=== PATIENT | male | born 1960 | race Caucasian/White ===

== ENCOUNTER 2017-08-03 18:41 | Emergency (ER) | payer MEDICAID, SELFPAY ==
[2017-08-03 18:44] VITALS: BP 153/90; PULSE 107; RESP 19; TEMP 36.9; O2SAT 95; BMI 31.5
[2017-08-03 19:48] LABS: Absolute Lymphocyte Count 1.24 X10^3/ul (0.83-4.51); Basophil# 0.02 X10^3/uL; Basophil% 0.6 % (0-1); Eosinophil# 0.02 X10^3/uL; Eosinophils% 0.6 % (0-5); Hemoglobin 14.6 g/dl (13.0-16.5); Lymphocyte # 1.24 X10^3/ul (4.0); Lymphocyte % 34.6 % (19-41); Mean Corp Hgb Conc 34.8 g/gl (32-36); Mean Corpuscular Hgb 31.7 pg (27.0-32.0); Mean Corpuscular Volume 91.1 fL (80-94); Monocyte# 0.32 X10^3/uL; Monocyte% 8.9 % (0-10); Neutrophil # 1.97 X10^3/uL (2.7-7.7); Platelet Count 85 K/mm3 (150-450); RBC Distribution Width CV 13.8 % (11.6-14.6); RBC Distribution Width SD 44.7 fl (35.1-43.9); Red Blood Count 4.61 M/mm3 (4.6-6.2); White Blood Count 3.6 K/mm3 (4.4-11.0)
[2017-08-03 19:52] LABS: POSITIVE COUNT NO; POSITIVE DIFFERENTIAL NO; POSITIVE MORPHOLOGY NO
[2017-08-03] MEDS: 0.9% Normal Saline 1,000 ML 1000 ML IV ×2 (20:02→20:30)
[2017-08-03 20:08] LABS: Anion Gap 13 (5-15); BUN 10 mg/dL (7-18); Chloride 105 mmol/L (98-107); Creatinine, Serum 0.66 mg/dL (0.70-1.30); EST Glomerular Filtration Rate 131 mL/min (>60); Est Glom Filt Rate - Afr Amer 158 mL/min (>60); Glucose 99 mg/dL (74-106); Potassium 3.2 mmol/L (3.5-5.1); Sodium Level 144 mmol/L (136-145)
--- NOTE | 2017-08-03 20:23 | NURSING ---
lab called with critical of alcohol of 506
[2017-08-03] MEDS: Ziprasidone IM 20 MG/ML VIAL IM (20:33)
[2017-08-03 20:52] VITALS: BP 129/81; PULSE 112; RESP 17; O2SAT 92
[2017-08-03 23:06] VITALS: BP 121/68; PULSE 86; RESP 18; O2SAT 100
[2017-08-04 01:00] VITALS: BP 124/74; PULSE 80; RESP 16; O2SAT 97
--- NOTE | 2017-08-04 02:25 | ED.VISSUMM ---
- ER Visit Summary Date of Service: 08/04/17 Chief Complaint: Alcohol intoxication History of Present Illness: The patient is a 57 M presenting with alcohol intoxication per EMS. His mother reportedly found him laying on the floor intoxicated and EMS was called. Patient does not know why he is in the emergency department. He has no complaints. His mom called the emergency department and asked that he be checked for all types of cancers. He has no known history of cancer. He admits to heavy drinking. Denies suicidal ideation. He does not wish to have detox. Physical Examination: Vitals are stable. Patient is afebrile. Alert no acute distress. HEENT exam is unremarkable. Neck is supple. Lungs are clear and equal bilaterally. Heart is regular rate and rhythm. Abdomen is soft nontender nondistended. Reducible right inguinal hernia Extremities are unremarkable. Skin is warm and dry. No focal neurologic deficit. Intoxicated Remainder of exam is unremarkable. Emergency Department Course and Treatment: Just after arrival patient became combative, he pulled out his IV. He was put in restraints for his own and staff safety. He was given Geodon IM. CBC is unremarkable other than platelets of 85, this is similar to previous. Chemistries unremarkable other than potassium 3.2. Alcohol level is 508. Patient will be observed in the ED until sober. On multiple re-evaluations he is sleeping, but arousable. Disposition: Pending re-evaluation Impression: Alcohol intoxication This note was generated with [employer] dictation software. It may contain incorrect words, spelling, and punctuation that were not noted in review of the chart prior to signing ED Disposition - Plan for ED Patient: Chief Complaint: Subst Abuse Referrals: Ernie Lee Chi, MD [Primary Care Provider] -
--- NOTE | 2017-08-04 02:29 | ED.DEP ---
ED Disposition - Plan for ED Patient: Chief Complaint: Subst Abuse Instructions: ED Alcohol Intoxication Referrals: Ernie Lee Chi, MD [Primary Care Provider] -
[2017-08-04 03:20] VITALS: BP 162/77; PULSE 91; RESP 16; O2SAT 97
[2017-08-04 04:51] VITALS: BP 136/92; PULSE 88; RESP 15; O2SAT 96
--- NOTE | 2017-08-04 06:50 | ED.RN ---
patients mother called for a ride at this time
[2017-08-04 07:30] VITALS: BP 157/71; PULSE 73; RESP 15; O2SAT 97
== END 2017-08-04 07:34 | disposition home or self-care (01) ==
PROVIDERS: Emergency Provider Emergency Medicine; Family Provider Family Medicine Geriatric Medicine; PCP Family Medicine Geriatric Medicine
DX: F10.129 Alcohol abuse with intoxication, unspecified (principal); K40.90 Unilateral inguinal hernia, without obstruction or gangrene, not specified as recurrent; Z78.1 Physical restraint status
CPT/HCPCS: 80048; 80320; 85025; 96360; 96361; 96372; 99285; J7030; A4216; G0480; J3486

== ENCOUNTER 2017-11-06 17:32 | Emergency (ER) | payer MEDICAID, SELFPAY ==
[2017-11-06 17:34] VITALS: BP 163/98; PULSE 116; RESP 20; TEMP 37.2; O2SAT 95; BMI 35.5
--- NOTE | 2017-11-06 17:39 | CT_ITS ---
STUDY: CT BRAIN WITHOUT CONTRAST REASON FOR EXAM: Male, 57 years old. Fall. RADIATION DOSAGE (If Supplied By Facility): CTDIvol = ( 44.99 ) mGy, DLP = ( 863.60 ) mGycm TECHNIQUE: Transaxial CT imaging of the brain was performed without administration of intravenous contrast material. Individualized dose optimization techniques were used for this CT. COMPARISON: October 10, 2016 FINDINGS: Normal soft tissue structures. Normal calvarium. There is mild cerebral atrophy with widening of the extra-axial spaces and ventricular dilatation. Normal white matter tracts of the cerebral hemispheres. Normal basal ganglia and thalami. Normal brainstem. There is mild cerebellar atrophy. There is no intracranial hemorrhage. There are no findings of an acute ischemic infarction. Normal visualized paranasal sinuses. CT/Brain/Head without Contrast IMPRESSION: Chronic involutional changes of the brain. Electronically Signed: Arline Chan MD at 18:22 EDT Tel , Service support ,
--- NOTE | 2017-11-06 17:39 | CT_ITS ---
STUDY: CT CERVICAL SPINE WITHOUT CONTRAST REASON FOR EXAM: Male, 57 years old. Fall. RADIATION DOSAGE (If Supplied By Facility): CTDIvol = ( 30.47 ) mGy, DLP = ( 1213.81 ) mGycm TECHNIQUE: High resolution transaxial imaging was performed without contrast material. Sagittal and coronal images were reconstructed. Individualized dose optimization techniques were used for this CT. COMPARISON: December 23, 2013 FINDINGS: Motion artifact degrades anatomic detail. Normal craniovertebral junction. There are degenerative changes of the anterior atlantoaxial articulation. Normal odontoid process. Normal cervical lordosis. There is multilevel degenerative disc disease and facet hypertrophy. C2-3: Normal endplates. Normal disc height and morphology. Normal central canal and intervertebral neuroforamina. C3-4: There is endplate spondylosis. Normal central canal and intervertebral neuroforamina. C4-5: There is endplate spondylosis. Normal central canal and intervertebral neuroforamina. C5-6: Endplate spondylosis. Normal central canal and intervertebral neuroforamina. C6-7: Normal endplates. Normal disc height and morphology. Normal central canal and intervertebral neuroforamina. C7-T1: Normal endplates. Normal disc height and morphology. Normal central canal and intervertebral neuroforamina. Normal visualized soft tissue structures. CT/Spine Cervical without Contras IMPRESSION: Multilevel degenerative changes, as described above. Electronically Signed: Arline Chan MD at 18:40 EDT Tel , Service support ,
--- NOTE | 2017-11-06 17:48 | ED.DCSUM_ITS ---
- ER Visit Summary Date of Service: 11/06/17 Chief Complaint: Alcohol intoxication, questionable falls History of Present Illness: The patient is a 57 M who presents intoxicated. Mother called EMS because she says the patient's been drinking constantly for the past 5 hours. He drinks alcohol pretty much every day. He has been seen here multiple times for alcohol intoxication. He has had some falls at home and it did have some repetitive questioning. EMS noted no signs of trauma on their assessment. Physical Examination: Vital signs reviewed. HEENT exam reveals anisocoria. The right pupil has chronic changes. Heart is regular rate and rhythm. Lungs are clear. Abdomen soft nontender. Back is nontender including cervical spine. His neurologic exam shows that he is intoxicated. He does have some repetitive questioning. He can move all 4 extremities. There is no weakness. Test Results: [] Emergency Department Course and Treatment: I spoke with the patient's mother on the phone. She states that he has been saying that he wants to kill himself and last night that he was going to shoot himself in the head. She states he has been saying that since his father . Patient is not on any psychiatric medications currently does not see anybody as an outpatient such as a counselor , psychiatrist or psychologist. Patient will have a medical workup. His alcohol level was over 400. He will be observed until sober and then evaluated by crisis Treatment Plan: [] Disposition: Pending Impression: Alcohol intoxication, suicidal ideations This note was generated with [employer] software. It may contain incorrect words, spelling, and punctuation that were not noted in review of the chart prior to signing <Arian Adams - Last Filed: 11/06/17 18:49> - ER Visit Summary Date of Service: 11/07/17 Patient was signed out to me from the overnight doc pending evaluation by crisis. Annalisa from the counseling center saw the patient. Patient denies suicidal ideation at this time. He does not have access to a gun. Patient's mother who lives with him is here. She does state that he made those statements but he has never attended in the past and they do not have a gun. Patient has been seen by 180 as well as the counseling center. Annalisa will arrange follow-up for him. Disposition: Home Diagnosis: EtOH intoxication This note was generated with Dragon dictation software. It may contain incorrect words, spelling, and punctuation that were not noted in review of the chart prior to signing <Mary Elise - Last Filed: 11/07/17 10:10> ED Disposition <Arian Adams - Last Filed: 11/06/17 18:49> <Mary Elise - Last Filed: 11/07/17 10:10> - Plan for ED Patient: Disposition: Home or Assisted Living Chief Complaint: ETOH Intox Instructions: ED Alcohol Intoxication Referrals: [facility] [GROUP OF PHYSICIANS] - Ernie Lee Chi, MD [Primary Care Provider] - [facility] [STAFF PHYSICIAN] -
--- NOTE | 2017-11-06 18:30 | ED.RN ---
DR IGLESIAS NOTIFIED OF ALCOHOL RESULTS
[2017-11-06 18:34] LABS: Absolute Lymphocyte Count 2.47 X10^3/ul (0.83-4.51); Absolute Neutrophil Count 1.7 X10^3/uL (2.0-7.7); Basophil# 0.02 X10^3/uL; Basophil% 0.4 % (0-1); Eosinophil# 0.04 X10^3/uL; Eosinophils% 0.9 % (0-5); Hematocrit 41.9 % (40-54); Hemoglobin 14.8 g/dl (13.0-16.5); Lymphocyte # 2.47 X10^3/ul (4.0); Lymphocyte % 53.5 % (19-41); Mean Corp Hgb Conc 35.3 g/gl (32-36); Mean Corpuscular Hgb 35.2 pg (27.0-32.0); Mean Corpuscular Volume 99.8 fL (80-94); Monocyte# 0.43 X10^3/uL; Monocyte% 9.3 % (0-10); Neutrophil # 1.65 X10^3/uL (2.7-7.7); Neutrophil % 35.7 % (47-70); Platelet Count 100 K/mm3 (150-450); RBC Distribution Width CV 13.3 % (11.6-14.6); White Blood Count 4.6 K/mm3 (4.4-11.0)
[2017-11-06 18:40] LABS: POSITIVE COUNT NO; POSITIVE DIFFERENTIAL NO; POSITIVE MORPHOLOGY NO
[2017-11-06] MEDS: Ziprasidone IM 20 MG/ML VIAL IM (18:40)
[2017-11-06 18:41] LABS: Anion Gap 13 (5-15); BUN 7 mg/dL (7-18); BUN/Creat Ratio 8.5 RATIO (10-20); Calcium,Total 8.4 mg/dL (8.5-10.1); Chloride 106 mmol/L (98-107); Creatinine, Serum 0.82 mg/dL (0.70-1.30); EST Glomerular Filtration Rate 102 mL/min (>60); Est Glom Filt Rate - Afr Amer 124 mL/min (>60); Estimated Creatinine Clearance 96.16 ml/min; Glucose 117 mg/dL (74-106); Potassium 3.3 mmol/L (3.5-5.1); Sodium Level 141 mmol/L (136-145)
[2017-11-06 19:11] VITALS: O2SAT 80
[2017-11-06 19:13] VITALS: O2SAT 92
[2017-11-06 20:08] VITALS: BP 107/71; PULSE 100; RESP 18; O2SAT 93
[2017-11-06 22:00] VITALS: BP 140/87; PULSE 125; RESP 19; O2SAT 93
[2017-11-07 00:28] VITALS: PULSE 90; RESP 15; O2SAT 91
[2017-11-07] MEDS: LORazepam 2 MG/ML Syringe IV (04:50)
[2017-11-07 04:53] VITALS: BP 172/104; PULSE 119; RESP 17; O2SAT 96
[2017-11-07 05:15] LABS: Amphetamine Urine VISTA NEGATIVE (<1000 ng/mL); Barbiturate Urine VISTA NEGATIVE (< 200 ng/mL); Benzodiazepine Urine VISTA NEGATIVE (< 200 ng/mL); Cocaine Urine VISTA NEGATIVE (< 300 ng/mL); Ecstacy Urine VISTA NEGATIVE (< 500 ng/mL); Methadone Urine VISTA NEGATIVE (< 300 ng/mL); PCP Urine VISTA NEGATIVE (< 25 ng/mL); THC Urine VISTA NEGATIVE (< 50 ng/mL); Vista UDS pH Range 6
[2017-11-07 06:25] VITALS: PULSE 98; RESP 15
[2017-11-07 08:05] VITALS: PULSE 14
--- NOTE | 2017-11-07 09:07 | NURSING ---
DR HEART TALKED TO SELENE FROM THE [facility]SELING [facility] AND SHE WILL BE IN TO SEE PATIENT
[2017-11-07 10:03] VITALS: PULSE 87; RESP 16; O2SAT 100
--- NOTE | 2017-11-07 10:08 | ED.DEP ---
ED Disposition - Plan for ED Patient: Disposition: Home or Assisted Living Chief Complaint: ETOH Intox Instructions: ED Alcohol Intoxication Referrals: Ernie Lee Chi, MD [Primary Care Provider] - [facility] [STAFF PHYSICIAN] - [facility] [GROUP OF PHYSICIANS] -
[2017-11-07] MEDS: LORazepam 1 MG Tablet 2 MG PO (11:04)
[2017-11-07 11:07] VITALS: BP 150/92; PULSE 119; RESP 18; O2SAT 98
--- NOTE | 2017-11-07 11:08 | ED.RN ---
PT FIXED ON GOING HOME, DC INSTRUCTIONS REVIEWED WITH MOTHER. ATIAN GIVEN PRIOR TO DC
== END 2017-11-07 11:09 | disposition home or self-care (01) ==
PROVIDERS: Emergency Provider Emergency Medicine; Family Provider Family Medicine Geriatric Medicine; PCP Family Medicine Geriatric Medicine
DX: F10.129 Alcohol abuse with intoxication, unspecified (principal); Y90.8 Blood alcohol level of 240 mg/100 ml or more; R45.851 Suicidal ideations; R29.6 Repeated falls
CPT/HCPCS: 70450; 72125; 80048; 80307; 80320; 85025; 96372; 96374; 99285; A4216; G0480; J3486

== ENCOUNTER 2017-11-09 07:39 | Emergency (ER) | payer MEDICAID, SELFPAY ==
[2017-11-09 07:39] VITALS: BP 157/91; PULSE 132; RESP 20; TEMP 36.4; O2SAT 96; BMI 32.2
--- NOTE | 2017-11-09 08:10 | CT_ITS ---
STUDY: CT BRAIN WITHOUT CONTRAST REASON FOR EXAM: Male, 57 years old. Ethanol intoxication. RADIATION DOSAGE (If Supplied By Facility): CTDIvol = ( 44.99 ) mGy, DLP = ( 829.85 ) mGycm TECHNIQUE: Transaxial CT imaging of the brain was performed without administration of intravenous contrast material. Individualized dose optimization techniques were used for this CT. COMPARISON: Comparison is made with prior study dated November 06, 2017 and October 10, 2016. FINDINGS: Normal soft tissue structures. Normal calvarium. There is mild cerebral atrophy with widening of the extra-axial spaces and ventricular dilatation. Normal white matter tracts of the cerebral hemispheres. Normal basal ganglia and thalami. Normal brainstem. 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 This is unchanged. There is no intracranial hemorrhage. There are no findings of an acute ischemic infarction. Normal visualized paranasal sinuses. CT/Brain/Head without Contrast IMPRESSION: Chronic involutional changes of the brain. No acute abnormality is seen. Electronically Signed: Jerel eTixeira MD at 8:50 EDT Tel [phone], Service support ,
--- NOTE | 2017-11-09 08:13 | ED.DCSUM_ITS ---
- ER Visit Summary Date of Service: 11/09/17 Chief Complaint: Alcohol intoxication History of Present Illness: The patient is a 57 M presenting with alcohol intoxication. Patient states he had one beer this morning. His mother called EMS when she found him on the floor. She told EMS that she was unsure if he had a seizure. He has history of alcohol withdrawal seizures. Patient denies trauma or complaints. He is requesting to go home. Physical Examination: Vitals are stable. Patient is afebrile. Alert no acute distress. HEENT exam is unremarkable. Neck is nontender Lungs are clear and equal bilaterally. Heart is regular and tachycardic Abdomen is soft nontender nondistended. Extremities are unremarkable. Skin is warm and dry. No focal neurologic deficit. Awake and alert, oriented x 3. Remainder of exam is unremarkable. Emergency Department Course and Treatment: CT head was obtained due to unknown trauma and shows no acute process. Alcohol level is 4.0. Patient states that he has not had alcohol in the past 2 days although when he arrived he admitted to 1 beer this morning. He denies feeling shaky or feeling like he is going into alcohol withdrawal. He is advised the risks of alcohol withdrawal including seizures and . Patient refuses admission to the hospital. He voices understanding of these risks. His mother is at bedside. He signed out AGAINST MEDICAL ADVICE. Disposition: AGAINST MEDICAL ADVICE Impression: Fall, history of alcohol abuse This note was generated with [employer] dictation software. It may contain incorrect words, spelling, and punctuation that were not noted in review of the chart prior to signing ED Disposition - Plan for ED Patient: Chief Complaint: ETOH Intox Referrals: Ernie Lee Chi, MD [Primary Care Provider] -
--- NOTE | 2017-11-09 09:07 | ED.RN ---
MOTHER CALLED AND REPORTED THAT PT HAD 3 SEIZURES LAST NIGHT, ONE BEING A GRAND MAL AND THAT HE NEEDS TO BE ADMITTED. I AM 89 YEARS OLD, AND I CANNOT TAKE CARE OF HIM. DR LEE AND WM RN NOTIFIED OF PHONE CALL.
[2017-11-09 10:18] VITALS: BP 151/100; PULSE 110; RESP 18; TEMP 36.6; O2SAT 98
--- NOTE | 2017-11-09 10:19 | ED.RN ---
PT MOTHER AT BEDSIDE. PT AND MOTHER YELLING AT EACH OTHER. MOTHER MOVES TO HALLWAY. SCREAMING AT PATIENT. ASKED TO MOVE BACK IN ROOM TO CONTINUE CONVERSATION.PT LEAVING AMA
--- NOTE | 2017-11-09 10:22 | ED.RN ---
PT THREW AMA PAPERWORK ON FLOOR.
== END 2017-11-09 10:21 | disposition left against medical advice (07) ==
PROVIDERS: Emergency Provider Emergency Medicine; Family Provider Family Medicine Geriatric Medicine; PCP Family Medicine Geriatric Medicine
DX: F10.129 Alcohol abuse with intoxication, unspecified (principal); Y90.0 Blood alcohol level of less than 20 mg/100 ml
CPT/HCPCS: 36415; 70450; 80320; 99284; G0480

== ENCOUNTER 2018-03-23 18:07 | Emergency (ER) | payer MEDICAID, SELFPAY ==
[2018-03-23 18:08] VITALS: BP 165/115; PULSE 116; RESP 16; TEMP 37.1; O2SAT 95; BMI 30.4
--- NOTE | 2018-03-23 18:35 | CT_ITS ---
STUDY: CT BRAIN WITHOUT CONTRAST REASON FOR EXAM: Male, 57 years old. Altered mental status. RADIATION DOSAGE (If Supplied By Facility): CTDIvol = ( 44.99 ) mGy, DLP = ( 880.47 ) mGycm TECHNIQUE: Transaxial CT imaging of the brain was performed without administration of intravenous contrast material. Individualized dose optimization techniques were used for this CT. COMPARISON: November 09, 2017. FINDINGS: Normal soft tissue structures. Normal calvarium. There is mild cerebral atrophy with widening of the extra-axial spaces and ventricular dilatation. Normal white matter tracts of the cerebral hemispheres. Normal basal ganglia and thalami. Normal brainstem. There is mild cerebellar atrophy. There is no intracranial hemorrhage. There are no findings of an acute ischemic infarction. Normal visualized paranasal sinuses. CT/Brain/Head without Contrast IMPRESSION: Chronic involutional changes of the brain. Electronically Signed: Peewee Solis MD at 20:10 EDT , Service support ,
--- NOTE | 2018-03-23 18:35 | EKG12_ITS ---
Test Reason : ETOH Blood Pressure : / mmHG Vent. Rate : 121 BPM Atrial Rate : 125 BPM P-R Int : 080 ms QRS Dur : 092 ms QT Int : 438 ms P-R-T Axes : 000 013 052 degrees QTc Int : 621 ms Sinus tachycardia with short VT Otherwise normal ECG Confirmed by ARASELI FLOYD, MOLLY ([id number]), food editor SHELBY MOODY ([id number]) on 03/28/2018 3:44:12 PM Referred By: IRA Confirmed By:MOLLY MARX MD
[2018-03-23 18:36] LABS: Bedside Glucose 108 mg/dL (70-110)
--- NOTE | 2018-03-23 18:36 | ED.VISSUMM ---
- ER Visit Summary Date of Service: 03/23/18 Chief Complaint: Altered mental status History of Present Illness: The patient is a 57 M who presents for altered mental status. Patient's mother called 911 and states he fell and hit his head. She is concerned he is inebriated. Patient has a history of heavy alcohol use. Patient is denying any complaints at this time, including any head pain, chest pain, abdominal pain, nausea or vomiting. He denies drinking anything today initially and then admits to only 2 beers. History is limited secondary to patient cooperation. Physical Examination: Vital signs: afebrile, hemodynamically stable, tachycardic, no hypoxia on room air General: well nourished, well developed, in no distress, uncooperative and belligerent, odor patient's breath consistent with alcohol Skin: warm, dry, no rash, no pallor HEENT: normocephalic and atraumatic; left pupil is mid size and fixed (chronic), left pupil 3 mm and reactive, moist mucous membranes Cardiovascular: Tachycardic rate and rhythm without murmurs, no peripheral edema, 2+ pulses all distal extremities Respiratory: No increased work of breathing, lungs are clear to auscultation bilaterally, no rales, rhonchi or wheezing Abdominal: Abdomen is soft, nontender with normoactive bowel sounds, no guarding or rebound, no masses MSK: Moves all extremities, no deformities, normal strength Neuro: Awake and alert, oriented to self but not time or place. No facial droop, sensation and motor function intact and symmetric Test Results: Abnormal Lab Results 03/23/18 03/23/18 03/23/18 18:30 18:55 18:55 WBC 5.3 RBC 4.89 Hgb 15.5 Hct 43.6 MCV 89.2 MCH 31.7 MCHC 35.6 RDW 13.6 RDW Differential 44.3 H Plt Count 132 L MPV 9.1 Immature Gran % (Auto) 0.400 Neut % (Auto) 59.6 Lymph % (Auto) 31.7 Teller % (Auto) 7.1 Eos % (Auto) 0.8 Baso % (Auto) 0.4 Absolute Neuts (auto) 3.2 Absolute Lymphs (auto) 1.69 Total Counted Not Reportable PT 13.4 INR 1.0 APTT 27.8 Sodium Potassium Chloride Carbon Dioxide Anion Gap BUN Creatinine Estim Creat Clear Calc Est GFR (MDRD) Af Amer Est GFR (MDRD) Non-Af BUN/Creatinine Ratio Glucose Calcium Total Bilirubin AST ALT Alkaline Phosphatase Troponin I Total Protein Albumin Globulin Albumin/Globulin Ratio Lipase Ethyl Alcohol POC Glucose 108 03/23/18 03/23/18 18:55 18:55 WBC RBC Hgb Hct MCV MCH MCHC RDW RDW Differential Plt Count MPV Immature Gran % (Auto) Neut % (Auto) Lymph % (Auto) Teller % (Auto) Eos % (Auto) Baso % (Auto) Absolute Neuts (auto) Absolute Lymphs (auto) Total Counted PT INR APTT Sodium 142 Potassium 3.4 L Chloride 103 Carbon Dioxide 25.0 Anion Gap 14 BUN 7 Creatinine 0.77 Estim Creat Clear Calc 102.40 Est GFR (MDRD) Af Amer 133 Est GFR (MDRD) Non-Af 110 BUN/Creatinine Ratio 9.1 L Glucose 106 Calcium 8.2 L Total Bilirubin 1.10 H AST 74 H ALT 74 H Alkaline Phosphatase 98 Troponin I < 0.015 Total Protein 7.6 Albumin 4.0 Globulin 3.6 Albumin/Globulin Ratio 1.1 Lipase 131 Ethyl Alcohol 435.0 H* POC Glucose Clinical Impression(s) from Imaging Studies Brain CT 03/23/18 18:35 IMPRESSION: Chronic involutional changes of the brain. Electronically Signed: Peewee Solis MD at 20:10 EDT , Service support , Chest X-Ray 03/23/18 20:00 IMPRESSION: Degenerative changes, as described above. No demonstrated acute cardiopulmonary process. Electronically Signed: Peewee Solis MD at 20:22 EDT , Service support , Medications Given Discontinued Medications Haloperidol Lactate (Haldol) 5 mg IM X1 ONE Stop: 03/23/18 18:37 Last Admin: 03/23/18 18:38 Dose: 5 mg Sodium Chloride () 1,000 mls @ 1,000 mls/hr IV .Q1H ONE Stop: 03/23/18 19:34 Last Admin: 10/10/18 19:02 Dose: 1,000 mls/hr Lorazepam (Ativan) 2 mg IM X1 ONE Stop: 03/23/18 19:21 Last Admin: 03/23/18 19:20 Dose: 2 mg Emergency Department Course and Treatment: Because of patient's slurred speech, poor orientation and belligerent behavior with his mother stating he fell and hit his head, CT head was performed to rule out intracranial hemorrhage. Patient is also denying significant alcohol consumption although he appears clinically intoxicated. Lab work performed to look for alternative reasons of patient's presentation other than acute alcohol intoxication. He had showed no intracranial hemorrhage. [id number] glucose was within normal limits. Labs were unremarkable other than mild elevation of ALT and AST. EKG showed sinus rhythm, tachycardic rate with a prolonged QT interval. Patient received IM Haldol prior to obtaining the EKG because of belligerent and uncooperative behavior, continued attempts to leave, and presenting a danger to himself given his altered mental status, slurred speech and concern for underlying medical etiology. Patient continued to be belligerent and uncooperative, thus was given additional Ativan. He then rested comfortably, with patent airway and no respiratory depression. Ethanol was positive at 435. Chest x-ray showed no pneumonia or pneumothorax. No alternative cause of patient's altered mental status and slurred speech was identified other than acute alcohol intoxication. Patient was discussed with his mother who does not currently have a way to pick up attendant the patient. Patient will be observed until he has a sober ride. Given his history of heavy drinking, patient will be medically clear for discharge once he is cooperative, able to ambulate on his own and has a responsible sober alliance party to stay with him. Treatment Plan: [] Disposition: [] Impression: Acute alcohol intoxication This note was generated with [employer] dictation software. It may contain incorrect words, spelling, and punctuation that were not noted in review of the chart prior to signing <Angela Luther - Last Filed: 03/23/18 23:24> - ER Visit Summary Patient was endorsed to me by the outgoing physician. Patient was observed in the emergency department until 330. At that point he had awoken from sleep. He was mildly tachycardic with a heart rate of 106 but was not tremulous was not confused and does not appear to be going through delirium tremens. I believe the patient at this point to be clinically sober. Patient will be discharged with a ride home via taxi cab. This note was generated with [employer] dictation software. It may contain incorrect words, spelling, and punctuation that were not noted in review of the chart prior to signing <Nik Flores - Last Filed: 03/24/18 03:24> ED Disposition <Angela Luther - Last Filed: 03/23/18 23:24> <Nik Flores - Last Filed: 03/24/18 03:24> - Plan for ED Patient: Disposition: Home or Assisted Living Chief Complaint: ETOH Intox Instructions: ED Alcohol Intoxication, ED Alcohol Abuse Referrals: Ernie Lee Chi, MD [Primary Care Provider] - 2 Days Additional Instructions: Please discuss with your doctor strategies to cut back on your drinking, as it is having a negative impact on your life and your relationship with your mother. It is also dangerous, as you are having falls and are increased risk of injuring herself because of your drinking. If you have any worsening of your condition or any new concerning symptoms, please return immediately to the emergency department for another evaluation.
[2018-03-23] MEDS: Haloperidol Lactate 5 MG/ML Vial IM (18:38)
--- NOTE | 2018-03-23 18:39 | ED.DCSUM_ITS ---
- ER Visit Summary Date of Service: 03/23/18 Chief Complaint: Altered mental status History of Present Illness: The patient is a 57 M who presents for altered mental status. Patient's mother called 911 and states he fell and hit his head. She is concerned he is inebriated. Patient has a history of heavy alcohol use. Patient is denying any complaints at this time, including any head pain, chest pain, abdominal pain, nausea or vomiting. He denies drinking anything today initially and then admits to only 2 beers. History is limited secondary to patient cooperation. Physical Examination: Vital signs: afebrile, hemodynamically stable, tachycardic, no hypoxia on room air General: well nourished, well developed, in no distress, uncooperative and belligerent, odor patient's breath consistent with alcohol Skin: warm, dry, no rash, no pallor HEENT: normocephalic and atraumatic; left pupil is mid size and fixed (chronic), left pupil 3 mm and reactive, moist mucous membranes Cardiovascular: Tachycardic rate and rhythm without murmurs, no peripheral edema, 2+ pulses all distal extremities Respiratory: No increased work of breathing, lungs are clear to auscultation bilaterally, no rales, rhonchi or wheezing Abdominal: Abdomen is soft, nontender with normoactive bowel sounds, no guarding or rebound, no masses MSK: Moves all extremities, no deformities, normal strength Neuro: Awake and alert, oriented to self but not time or place. No facial droop, sensation and motor function intact and symmetric Test Results: Abnormal Lab Results 03/23/18 03/23/18 03/23/18 18:30 18:55 18:55 WBC 5.3 RBC 4.89 Hgb 15.5 Hct 43.6 MCV 89.2 MCH 31.7 MCHC 35.6 RDW 13.6 RDW Differential 44.3 H Plt Count 132 L MPV 9.1 Immature Gran % (Auto) 0.400 Neut % (Auto) 59.6 Lymph % (Auto) 31.7 [place] % (Auto) 7.1 Eos % (Auto) 0.8 Baso % (Auto) 0.4 Absolute Neuts (auto) 3.2 Absolute Lymphs (auto) 1.69 Total Counted Not Reportable PT 13.4 INR 1.0 APTT 27.8 Sodium Potassium Chloride Carbon Dioxide Anion Gap BUN Creatinine Estim Creat Clear Calc Est GFR (MDRD) Af Amer Est GFR (MDRD) Non-Af BUN/Creatinine Ratio Glucose Calcium Total Bilirubin AST ALT Alkaline Phosphatase Troponin I Total Protein Albumin Globulin Albumin/Globulin Ratio Lipase Ethyl Alcohol POC Glucose 108 03/23/18 03/23/18 18:55 18:55 WBC RBC Hgb Hct MCV MCH MCHC RDW RDW Differential Plt Count MPV Immature Gran % (Auto) Neut % (Auto) Lymph % (Auto) [place] % (Auto) Eos % (Auto) Baso % (Auto) Absolute Neuts (auto) Absolute Lymphs (auto) Total Counted PT INR APTT Sodium 142 Potassium 3.4 L Chloride 103 Carbon Dioxide 25.0 Anion Gap 14 BUN 7 Creatinine 0.77 Estim Creat Clear Calc 102.40 Est GFR (MDRD) Af Amer 133 Est GFR (MDRD) Non-Af 110 BUN/Creatinine Ratio 9.1 L Glucose 106 Calcium 8.2 L Total Bilirubin 1.10 H AST 74 H ALT 74 H Alkaline Phosphatase 98 Troponin I < 0.015 Total Protein 7.6 Albumin 4.0 Globulin 3.6 Albumin/Globulin Ratio 1.1 Lipase 131 Ethyl Alcohol 435.0 H* POC Glucose Clinical Impression(s) from Imaging Studies Brain CT 03/23/18 18:35 IMPRESSION: Chronic involutional changes of the brain. Electronically Signed: Peewee Solis MD at 20:10 EDT , Service support , Chest X-Ray 03/23/18 20:00 IMPRESSION: Degenerative changes, as described above. No demonstrated acute cardiopulmonary process. Electronically Signed: Peewee Solis MD at 20:22 EDT , Service support , Medications Given Discontinued Medications Haloperidol Lactate (Haldol) 5 mg IM X1 ONE Stop: 03/23/18 18:37 Last Admin: 03/23/18 18:38 Dose: 5 mg Sodium Chloride () 1,000 mls @ 1,000 mls/hr IV .Q1H ONE Stop: 03/23/18 19:34 Last Admin: 10/10/18 19:02 Dose: 1,000 mls/hr Lorazepam (Ativan) 2 mg IM X1 ONE Stop: 03/23/18 19:21 Last Admin: 03/23/18 19:20 Dose: 2 mg Emergency Department Course and Treatment: Because of patient's slurred speech, poor orientation and belligerent behavior with his mother stating he fell and hit his head, CT head was performed to rule out intracranial hemorrhage. Patient is also denying significant alcohol consumption although he appears clinically intoxicated. Lab work performed to look for alternative reasons of patient's presentation other than acute alcohol intoxication. He had showed no intracranial hemorrhage. [id number] glucose was within normal limits. Labs were unremarkable other than mild elevation of ALT and AST. EKG showed sinus rhythm, tachycardic rate with a prolonged QT interval. Patient received IM Haldol prior to obtaining the EKG because of belligerent and uncooperative beh avior, continued attempts to leave, and presenting a danger to himself given his altered mental status, slurred speech and concern for underlying medical etiology. Patient continued to be belligerent and uncooperative, thus was given additional Ativan. He then rested comfortably, with patent airway and no respiratory depression. Ethanol was positive at 435. Chest x-ray showed no pneumonia or pneumothorax. No alternative cause of patient's altered mental status and slurred speech was identified other than acute alcohol intoxication. Patient was discussed with his mother who does not currently have a way to spanish moss picker the patient. Patient will be observed until he has a sober ride. Given his history of heavy drinking, patient will be medically clear for discharge once he is cooperative, able to ambulate on his own and has a responsible sober green party to stay with him. Treatment Plan: [] Disposition: [] Impression: Acute alcohol intoxication This note was generated with [employer] dictation software. It may contain incorrect words, spelling, and punctuation that were not noted in review of the chart prior to signing <Angela Luther - Last Filed: 03/23/18 23:24> - ER Visit Summary Patient was endorsed to me by the outgoing physician. Patient was observed in the emergency department until 330. At that point he had awoken from sleep. He was mildly tachycardic with a heart rate of 106 but was not tremulous was not confused and does not appear to be going through delirium tremens. I believe the patient at this point to be clinically sober. Patient will be discharged with a ride home via taxi cab. This note was generated with [employer] dictation software. It may contain incorrect words, spelling, and punctuation that were not noted in review of the chart prior to signing <Nik Flores - Last Filed: 03/24/18 03:24> ED Disposition <Angela Luther - Last Filed: 03/23/18 23:24> <Nik Flores - Last Filed: 03/24/18 03:24> - Plan for ED Patient: Disposition: Home or Assisted Living Chief Complaint: ETOH Intox Instructions: ED Alcohol Intoxication, ED Alcohol Abuse Referrals: Ernie Lee Chi, MD [Primary Care Provider] - 2 Days Additional Instructions: Please discuss with your doctor strategies to cut back on your drinking, as it is having a negative impact on your life and your relationship with your mother. It is also dangerous, as you are having falls and are increased risk of injuring herself because of your drinking. If you have any worsening of your condition or any new concerning symptoms, please return immediately to the emergency department for another evaluation.
[2018-03-23] MEDS: 0.9% Normal Saline 1,000 ML 1000 ML IV (19:02)
[2018-03-23 19:05] LABS: Absolute Lymphocyte Count 1.69 X10^3/ul (0.83-4.51); Absolute Neutrophil Count 3.2 X10^3/uL (2.0-7.7); Basophil# 0.02 X10^3/uL; Basophil% 0.4 % (0-1); Eosinophil# 0.04 X10^3/uL; Eosinophils% 0.8 % (0-5); Hematocrit 43.6 % (40-54); Hemoglobin 15.5 g/dl (13.0-16.5); Lymphocyte # 1.69 X10^3/ul (4.0); Lymphocyte % 31.7 % (19-41); Mean Corp Hgb Conc 35.6 g/gl (32-36); Mean Corpuscular Hgb 31.7 pg (27.0-32.0); Mean Corpuscular Volume 89.2 fL (80-94); Mean Platelet Vol. 9.1 fl (6.2-12.0); Monocyte# 0.38 X10^3/uL; Monocyte% 7.1 % (0-10); Neutrophil # 3.18 X10^3/uL (2.7-7.7); Neutrophil % 59.6 % (47-70); POSITIVE COUNT NO; POSITIVE DIFFERENTIAL NO; POSITIVE MORPHOLOGY NO; Platelet Count 132 K/mm3 (150-450); RBC Distribution Width CV 13.6 % (11.6-14.6); RBC Distribution Width SD 44.3 fl (35.1-43.9); Red Blood Count 4.89 M/mm3 (4.6-6.2); White Blood Count 5.3 K/mm3 (4.4-11.0)
[2018-03-23 19:08] LABS: Prothrombin Time (Protime)PT. 13.4 SECONDS (11.7-14.9)
[2018-03-23 19:09] LABS: Partial Thromboplast Time 27.8 Seconds (24.1-36.2)
[2018-03-23 19:20] LABS: ALB/GLOB Ratio 1.1 RATIO (0.9-2.4); AST(SGOT) 74 U/L (15-37); Alanine Aminotransfer ALT/SGPT 74 U/L (16-61); Alkaline Phosphatase 98 U/L (45-117); Anion Gap 14 (5-15); BUN 7 mg/dL (7-18); BUN/Creat Ratio 9.1 RATIO (10-20); Calcium,Total 8.2 mg/dL (8.5-10.1); Chloride 103 mmol/L (98-107); Creatinine, Serum 0.77 mg/dL (0.70-1.30); EST Glomerular Filtration Rate 110 mL/min (>60); Est Glom Filt Rate - Afr Amer 133 mL/min (>60); Globulin 3.6 g/dL (2.2-4.2); Glucose 106 mg/dL (74-106); Lipase 131 U/L (73-393); Potassium 3.4 mmol/L (3.5-5.1); Protein, Total 7.6 g/dL (6.4-8.2); Sodium Level 142 mmol/L (136-145)
[2018-03-23] MEDS: LORazepam 2 MG/ML Syringe IM (19:20)
[2018-03-23 19:24] VITALS: BP 155/91; PULSE 102; RESP 11; O2SAT 96
--- NOTE | 2018-03-23 20:00 | RAD_ITS ---
STUDY: X-RAY CHEST REASON FOR EXAM: Male, 57 years old. Alcohol intoxication TECHNIQUE: Single frontal view of the chest. COMPARISON: October 18, 2016. FINDINGS: There are monitoring devices. The lungs are clear and expanded. There is no demonstrated pleural abnormality. There is borderline cardiomegaly. There is a retrocardiac density suggesting hiatal hernia. Normal visualized pulmonary arteries. Normal visualized aortic arch and descending thoracic aorta. Normal visualized thoracic spine. Normal visualized ribs, clavicles, and shoulders. There is no demonstrated abnormality of the visualized soft tissue structures of the upper abdomen. RAD/Chest 1 View (Portable) IMPRESSION: Degenerative changes, as described above. No demonstrated acute cardiopulmonary process. Electronically Signed: Peewee Solis MD at 20:22 EDT , Service support ,
--- NOTE | 2018-03-23 20:42 | NURSING ---
DR. LAUREN MADE AWARE THAT PATIENT'S ALCOHOL LEVEL IS 435. PATIENT IS SLEEPING CURRENTLY. DR. LAUREN IS OK THAT WE DON'T ATTEMPT TO GET THE URINE AT THIS TIME.
--- NOTE | 2018-03-23 20:51 | NURSING ---
DAVID HIS MOTHER CALLED AND WAS UPDATED ON HER SON'S STATUS. THIS TOLD HER THAT HE WOULD BE HERE PROBABLY TILL MORNING.
[2018-03-23 21:22] VITALS: BP 139/72; PULSE 93; RESP 15; O2SAT 96
[2018-03-23 23:00] VITALS: BP 147/88; PULSE 102; RESP 16; O2SAT 98
[2018-03-24 00:48] VITALS: BP 133/81; PULSE 105; RESP 16; O2SAT 95
--- NOTE | 2018-03-24 01:11 | ED.DEP ---
ED Disposition - Plan for ED Patient: Disposition: Home or Assisted Living Chief Complaint: ETOH Intox Instructions: ED Alcohol Intoxication, ED Alcohol Abuse Referrals: Ernie Lee Chi, MD [Primary Care Provider] - 2 Days Additional Instructions: Please discuss with your doctor strategies to cut back on your drinking, as it is having a negative impact on your life and your relationship with your mother. It is also dangerous, as you are having falls and are increased risk of injuring herself because of your drinking. If you have any worsening of your condition or any new concerning symptoms, please return immediately to the emergency department for another evaluation.
[2018-03-24 02:41] VITALS: BP 107/61; PULSE 106; RESP 13; O2SAT 95
[2018-03-24 03:20] VITALS: BP 107/61; PULSE 114; RESP 23; O2SAT 95
--- NOTE | 2018-03-24 03:31 | ED.RN ---
DR. ANTHONY SAID PATIENT IS OK TO BE DISCHARGED AND GO HOME BY CAB. IV D/C'D AND DISCHARGE INSTRUCTIONS GIVEN. TWO GATORADES GIVEN.
== END 2018-03-24 04:13 | disposition home or self-care (01) ==
PROVIDERS: Emergency Provider Emergency Medicine; Family Provider Family Medicine Geriatric Medicine; PCP Family Medicine Geriatric Medicine
DX: F10.129 Alcohol abuse with intoxication, unspecified (principal); Y90.8 Blood alcohol level of 240 mg/100 ml or more; R00.0 Tachycardia, unspecified; I45.81 Long QT syndrome
CPT/HCPCS: 70450; 71045; 80053; 80320; 82962; 83690; 84484; 85025; 85610; 85730; 93005; 96361; 96372; 96374; 99285; J7030; A4216; G0480

== ENCOUNTER 2018-05-08 17:15 | Emergency (ER) | payer MEDICAID, SELFPAY ==
[2018-05-08 17:16] VITALS: BP 165/97; PULSE 110; RESP 22; TEMP 36.8; O2SAT 95; BMI 33.4
[2018-05-08] MEDS: Ziprasidone IM 20 MG/ML VIAL IM (17:30)
[2018-05-08 17:43] LABS: Absolute Lymphocyte Count 3.77 X10^3/ul (0.83-4.51); Absolute Neutrophil Count 3.9 X10^3/uL (2.0-7.7); Basophil# 0.05 X10^3/uL; Basophil% 0.6 % (0-1); Eosinophil# 0.02 X10^3/uL; Eosinophils% 0.2 % (0-5); Hematocrit 45.3 % (40-54); Lymphocyte # 3.77 X10^3/ul (4.0); Lymphocyte % 44.8 % (19-41); Mean Corp Hgb Conc 35.3 g/gl (32-36); Mean Corpuscular Hgb 32.4 pg (27.0-32.0); Mean Corpuscular Volume 91.7 fL (80-94); Mean Platelet Vol. 9.1 fl (6.2-12.0); Monocyte# 0.71 X10^3/uL; Monocyte% 8.4 % (0-10); Neutrophil # 3.86 X10^3/uL (2.7-7.7); Neutrophil % 45.9 % (47-70); Platelet Count 213 K/mm3 (150-450); RBC Distribution Width CV 13.4 % (11.6-14.6); RBC Distribution Width SD 44.4 fl (35.1-43.9); Red Blood Count 4.94 M/mm3 (4.6-6.2); White Blood Count 8.4 K/mm3 (4.4-11.0)
[2018-05-08 17:49] LABS: POSITIVE COUNT NO; POSITIVE DIFFERENTIAL NO; POSITIVE MORPHOLOGY NO
[2018-05-08 17:50] LABS: Anion Gap 15 (5-15); BUN 11 mg/dL (7-18); BUN/Creat Ratio 12.8 RATIO (10-20); Calcium,Total 8.3 mg/dL (8.5-10.1); Chloride 106 mmol/L (98-107); Creatinine, Serum 0.86 mg/dL (0.70-1.30); EST Glomerular Filtration Rate 97 mL/min (>60); Est Glom Filt Rate - Afr Amer 118 mL/min (>60); Estimated Creatinine Clearance 90.58 ml/min; Glucose 114 mg/dL (74-106); Potassium 3.4 mmol/L (3.5-5.1); Sodium Level 145 mmol/L (136-145)
--- NOTE | 2018-05-08 18:19 | ED.VISSUMM ---
- ER Visit Summary Date of Service: 05/08/18 Chief Complaint: Alcohol intoxication History of Present Illness: The patient is a 58 M presents to the emergency department with alcohol intoxication. The patient lives at home with his mother. He is a long-standing history of alcohol abuse. Apparently, he was drinking today and got verbally aggressive towards his mother. She states she did not feel safe and called police. Patient denies being suicidal or homicidal. He does appear to be intoxicated. He denies any other current complaints. Physical Examination: Vital signs reviewed General: Well-nourished, well-developed Head: Normocephalic, atraumatic Eyes: Pupils equal and reactive, extraocular muscles intact Neck, supple, no lymphadenopathy Heart: Regular rate and rhythm Respiratory: No distress, clear bilaterally Abdomen: Soft, nontender, nondistended, no peritoneal signs Back: Nontender Extremities: Nontender, no edema, no cords Skin: Normal color no rash Neuro: Alert and oriented, no focal or lateralizing deficits Test Results: [] Emergency Department Course and Treatment: The patient has a long-standing history of alcohol abuse. He presents and he is belligerent and aggressive. The patient was given Geodon, Benadryl and was more comfortable. Labs are obtained. He is markedly intoxicated with an alcohol level over 400. Rest of his labs are unremarkable. The patient was still restless and given Ativan and is now resting comfortably. I do feel that the bulk of the patient's symptoms come from his chronic alcohol abuse. He has no interest in detox at this time. The patient will be observed until he can demonstrate clinical sobriety and will be reevaluated. At that time, disposition will be made. Treatment Plan: [] Disposition: Pending Impression: 1. Alcohol intoxication This note was generated with [employer] dictation software. It may contain incorrect words, spelling, and punctuation that were not noted in review of the chart prior to signing ED Disposition - Plan for ED Patient: Chief Complaint: ETOH Intox Instructions: ED Alcohol Intoxication Referrals: Ernie Lee Chi, MD [Primary Care Provider] -
[2018-05-08 18:33] VITALS: PULSE 102; RESP 18; O2SAT 95
--- NOTE | 2018-05-08 18:45 | EKG12_ITS ---
Test Reason : ETOH INTOX Blood Pressure : / mmHG Vent. Rate : 127 BPM Atrial Rate : 071 BPM P-R Int : 000 ms QRS Dur : 088 ms QT Int : 410 ms P-R-T Axes : 000 036 074 degrees QTc Int : 595 ms Atrial tachycardia Nonspecific T wave abnormality Abnormal ECG Confirmed by ARASELI FLOYD, MOLLY ([id number]), assistant editor KAMLESH KARIMI ([id number]) on 05/10/2018 4:22:24 PM Referred By: EMILY Confirmed By:MOLLY MARX MD
[2018-05-08 18:47] LABS: Amphetamine Urine VISTA NEGATIVE (<1000 ng/mL); Barbiturate Urine VISTA NEGATIVE (< 200 ng/mL); Benzodiazepine Urine VISTA NEGATIVE (< 200 ng/mL); Cocaine Urine VISTA NEGATIVE (< 300 ng/mL); Ecstacy Urine VISTA NEGATIVE (< 500 ng/mL); Methadone Urine VISTA NEGATIVE (< 300 ng/mL); PCP Urine VISTA NEGATIVE (< 25 ng/mL); THC Urine VISTA NEGATIVE (< 50 ng/mL); Vista UDS pH Range 5
[2018-05-08] MEDS: DiphenhydrAMINE 50 MG/ML Syringe IV (18:48)
[2018-05-08 19:10] VITALS: BP 158/94; PULSE 94; RESP 16; O2SAT 97
--- NOTE | 2018-05-08 19:27 | ED.RN ---
PT REPEATEDLY YELLING MOM. PT ATTEMPTING TO GET OUT OF BED. AT THIS TIME, MEDIC SITTING IN THE ROOM ATTEMPTING TO REDIRECT PT AND HELP PT UNDERSTAND HE IS IN THE HOSPITAL AND NEEDS TO STAY IN BED.
[2018-05-08] MEDS: LORazepam 2 MG/ML Syringe 1 MG IV (19:36)
[2018-05-08 19:43] VITALS: BP 134/78; PULSE 92; RESP 22; O2SAT 96
[2018-05-08 21:53] VITALS: BP 120/67; PULSE 97; RESP 12; O2SAT 93
[2018-05-08 23:09] VITALS: BP 126/72; PULSE 103; RESP 19; O2SAT 95
--- NOTE | 2018-05-08 23:29 | ED.RN ---
PT LAYING IN BED SLEEPING. WHEN PT WAKES HE ATTEMPTS TO GET OUT OF BED AND YELLS MOM. PT REDIRECTED AND INFORMED HE IS TOO INTOXICATED TO WALK HOME AT THIS TIME. PT BECOMES ARGUMENTATIVE. PT YELLING OUT. PT FALL BACK TO SLEEP.
[2018-05-09 01:00] VITALS: BP 126/78; PULSE 94; RESP 14; O2SAT 91
[2018-05-09 03:32] VITALS: BP 134/76; PULSE 88; RESP 19; O2SAT 99
[2018-05-09 04:23] VITALS: BP 124/81; PULSE 88; RESP 16; O2SAT 94
[2018-05-09 05:47] VITALS: BP 129/79; PULSE 84; RESP 18; O2SAT 99
[2018-05-09 06:04] VITALS: BP 159/99; PULSE 81; RESP 18; O2SAT 99
[2018-05-09 06:39] VITALS: BP 139/99; PULSE 84; RESP 18; O2SAT 99
== END 2018-05-09 06:42 | disposition home or self-care (01) ==
PROVIDERS: Emergency Provider Emergency Medicine; Family Provider Family Medicine Geriatric Medicine; PCP Family Medicine Geriatric Medicine
DX: F10.129 Alcohol abuse with intoxication, unspecified (principal); Y90.8 Blood alcohol level of 240 mg/100 ml or more; K21.9 Gastro-esophageal reflux disease without esophagitis; Z79.899 Other long term (current) drug therapy
CPT/HCPCS: 80048; 80307; 80320; 85025; 93005; 96372; 96374; 96375; 99285; A4216; G0480; J3486

== ENCOUNTER 2018-05-17 12:18 | Emergency (ER) | payer MEDICAID, SELFPAY ==
[2018-05-17 12:19] VITALS: BP 164/111; PULSE 111; RESP 18; TEMP 36.7; O2SAT 97; BMI 33.0
[2018-05-17 12:26] VITALS: BP 164/111; PULSE 107; RESP 17; TEMP 36.7; O2SAT 96
--- NOTE | 2018-05-17 12:29 | ED.VISSUMM ---
- ER Visit Summary Date of Service: 05/17/18 Chief Complaint: Acute alcohol intoxication. History of Present Illness: The patient is a 58 M history of alcoholism. Reflux. Right inguinal hernia. Patient denies any complaints. States when he drinks his mom calls the paramedics and he is brought into the ER. He denies any falls or trauma. He denies any headache, chest pain or shortness of breath. He has had several ER visits similar to this each time his alcohol level is between 400- 500. He denies being ill recently. Physical Examination: Vital signs are stable. He is afebrile. He does not seem septic or toxic. He is in no distress. He is obviously intoxicated. HEENT exam pupils round reactive light. No signs of trauma to his face or scalp. Nontender. C-spine nontender. Trachea midline. Lungs clear to auscultation bilaterally. Heart regular rhythm no murmur. Chest wall nontender. No signs of trauma. Abdomen soft nontender. Normal bowel sounds no peritoneal signs. No bruising. Pelvic girdle intact. Patient is moving all 4 extremities. They are neurovascularly intact. Back exam is nontender. On external exam the patient showed me an obvious large right inguinal hernia and no scrotum. Neurologically he is intoxicated but is awake alert. He is following commands. He is answering questions. He has no focal motor deficits. Test Results: None Emergency Department Course and Treatment: Patient will remain in the ER for a period of observation and eventually be discharged back to home. His exam and history are consistent with alcohol intoxication. He is in no distress. I do not feel he needs any workup at this time. He has no history of trauma and has had numerous CAT scans in the past. I did call and speak the patient's mother at their home. She is adamant that she does not want him to return home. She understands but does not like that I cannot force him into detox or rehab. The patient states he wants to go home. He became somewhat verbally combative and had to be restrained. He will be given IM Geodon. I do have social work faculty member involved to help with a disposition and safe place for the patient to go. He has denied alcohol rehab multiple times to me. Hospital social work faculty member were consulted and involved in the patient's care. She contacted patient's mother and she was willing to take him back in the home later today. Patient be transported back to their home around 7:30 p.m. That will allow him time to metabolize some of the alcohol that he ingested. Treatment Plan: Strongly consider an alcohol detox program. Fluids and rest. Disposition: Discharge Impression: Acute alcohol intoxication History of alcoholism. Known right inguinal hernia This note was generated with [employer] dictation software. It may contain incorrect words, spelling, and punctuation that were not noted in review of the chart prior to signing ED Disposition - Plan for ED Patient: Disposition: Home or Assisted Living Chief Complaint: Substance Abuse Instructions: ED Alcohol Abuse Referrals: Ernie Lee Chi, MD [Primary Care Provider] - As Needed Additional Instructions: Strongly consider an alcohol detox and rehabilitation program. Plenty of fluids and rest. Follow-up with your doctor as needed
--- NOTE | 2018-05-17 12:32 | ED.RN ---
pt arrives to ed agitated and disoriented. pt was stumbling into department with ems escort. pt admits to using etoh today. mother called into ed and talked with community arts officer. pt has been into department multiple times for the exact same issue. detox was offered today and past visits. case management has been consulted and will be consulted again. mother will be called after pt is determined to be safe for home by ed dr. no blood work or testing will be utilized at this time. lynnette lewis rn
--- NOTE | 2018-05-17 12:33 | ED.DCSUM_ITS ---
- ER Visit Summary Date of Service: 05/17/18 Chief Complaint: Acute alcohol intoxication. History of Present Illness: The patient is a 58 M history of alcoholism. Reflux. Right inguinal hernia. Patient denies any complaints. States when he drinks his mom calls the paramedics and he is brought into the ER. He denies any falls or trauma. He denies any headache, chest pain or shortness of breath. He has had several ER visits similar to this each time his alcohol level is between 400- 500. He denies being ill recently. Physical Examination: Vital signs are stable. He is afebrile. He does not seem septic or toxic. He is in no distress. He is obviously intoxicated. HEENT exam pupils round reactive light. No signs of trauma to his face or scalp. Nontender. C-spine nontender. Trachea midline. Lungs clear to auscultation bilaterally. Heart regular rhythm no murmur. Chest wall nontender. No signs of trauma. Abdomen soft nontender. Normal bowel sounds no peritoneal signs. No bruising. Pelvic girdle intact. Patient is moving all 4 extremities. They are neurovascularly intact. Back exam is nontender. On external exam the patient showed me an obvious large right inguinal hernia and no scrotum. Neurologically he is intoxicated but is awake alert. He is following commands. He is answering questions. He has no focal motor deficits. Test Results: None Emergency Department Course and Treatment: Patient will remain in the ER for a period of observation and eventually be discharged back to home. His exam and history are consistent with alcohol intoxication. He is in no distress. I do not feel he needs any workup at this time. He has no history of trauma and has had numerous CAT scans in the past. I did call and speak the patient's mother at their home. She is adamant that she does not want him to return home. She understands but does not like that I cannot force him into detox or rehab. The patient states he wants to go home. He became somewhat verbally combative and had to be restrained. He will be given IM Geodon. I do have 7th grade social studies teacher involved to help with a disposition and safe place for the patient to go. He has denied alcohol rehab multiple times to me. Hospital 7th grade social studies teacher were consulted and involved in the patient's care. She contacted patient's mother and she was willing to take him back in the home later today. Patient be transported back to their home around 7:30 p.m. That will allow him time to metabolize some of the alcohol that he ingested. Treatment Plan: Strongly consider an alcohol detox program. Fluids and rest. Disposition: Discharge Impression: Acute alcohol intoxication History of alcoholism. Known right inguinal hernia This note was generated with [employer] dictation software. It may contain incorrect words, spelling, and punctuation that were not noted in review of the chart prior to signing ED Disposition - Plan for ED Patient: Disposition: Home or Assisted Living Chief Complaint: Substance Abuse Instructions: ED Alcohol Abuse Referrals: Ernie Lee Chi, MD [Primary Care Provider] - As Needed Additional Instructions: Strongly consider an alcohol detox and rehabilitation program. Plenty of fluids and rest. Follow-up with your doctor as needed
--- NOTE | 2018-05-17 12:34 | ED.RN ---
THIS PTS MOTHER CALLED IN PRIOR TO ARRIVAL; SHE STATED THAT SHE IS SCARED OF THE PT, SHE HAS NEVER SEEN HIM THIS INTOXICATED, AND THAT EVERY TIME HE COMES HERE WE JUST LET HIM SOBER UP AND THEN HE GOES HOME. SHE STATED THAT SHE DIDN'T WANT HIM TO STAY THERE ANYMORE BECAUSE SHE IS AFRAID OF HIM. SHE STATED SHE DOES NOT OWN THE HOME SO HE CAN COME AND GO HE PLEASES. PTS MOTHER ALSO SAID THAT SHE HAS HID THE CAR KEYS BUT HE FOUND A SPARE AND NOW CANNOT FIND IT TO TAKE IT FROM HIM. SHE ASKED IF WE CAN KEEP HIM HERE AND I TOLD HER THAT IS UP TO THE DOCTORS THAT THE PT WOULD NEED TO BE EVALUATED BY THEM BEFORE AN DECISIONS CAN BE MADE
--- NOTE | 2018-05-17 12:55 | ED.RN ---
pt asked multiple time to remain in bed. refusing to follow orders. pt placed in four point restraints per ed dr order. medication to assist with relaxation obtained. case management in room at current time. lynnette lewis rn [id number]
[2018-05-17] MEDS: Ziprasidone IM 20 MG/ML VIAL IM (13:04)
--- NOTE | 2018-05-17 13:30 | CM.ED ---
Social Work Note Referral from Dr. Hidalgo for recurrent visits and mother not wanting him to return home. Face to face with the pt who is presently in restraints. Introduced self and role at [facility]. Inform the pt that his mother does not want him to return and he states that he would have somewhere else to go if she does not. Inquire 3x where he would go and he states no where. Begins c/o to have restraints removed. Placed call to pt's mother. She claims that the hospital needs to detox the pt. Inform that we cannot force him to go through detox. She states that we can, you just need to keep him two days or so. Explain that we cannot keep him unwillingly and that we are also not a detox center for people that do not want detox. Explain the importance of someone's willingness in detoxing and abstaining from substance abuse, and the dangers of alcohol detox that we do not want to subject someone to if they are not willing. Kimberly states that she will need to reach out to Manish Garcia. Acknowledge her concerns and apologize for the frustration she is experiencing. Inform that if she is not willing to allow him to return home she needs to serve him and eviction notice and his other option will be a homeless [facility]. She states that she will not let him go there and that he can come home upon discharge. States that she does not drive and would not know how to get him home and states she guesses she will see him when he arrives after walking. Explain that we should be able to setup transportation through his insurance. Understanding expressed. Updated Dr. Hidalgo. Placed call to [facility] at [phone] and setup transport through [place] between 1930 and 1999. Notified staff. Will attempt to talk with pt once alcohol level is lowered. PLAN: Return home to mother's residence. Cristina Newman, PROOF CARRIER, [place]
[2018-05-17 15:34] VITALS: BP 125/73; PULSE 99; RESP 16; O2SAT 95
--- NOTE | 2018-05-17 15:49 | ED.RN ---
AT THIS TIME THIS NURSE DID NOT FEEL THERE WAS A NEED FOR RESTRAINTS ON THIS PT DUE TO THE PT STATING HE UNDERSTOOD HE HAD TO STAY IN BED AND COOPERATE WITH STAFF UNTIL HIS RIDE ARRIVES. THE PT IS CURRENTLY BEING CALM AND COOPERATIVE AND IS FALLING ASLEEP.
[2018-05-17 17:04] VITALS: BP 135/78; PULSE 86; RESP 16; O2SAT 95
[2018-05-17 19:37] VITALS: BP 126/80; PULSE 76; RESP 16; O2SAT 97
[2018-05-17 19:45] VITALS: PULSE 78; RESP 18; O2SAT 98
== END 2018-05-17 19:46 | disposition home or self-care (01) ==
PROVIDERS: Emergency Provider Emergency Medicine; Family Provider Family Medicine Geriatric Medicine; PCP Family Medicine Geriatric Medicine
DX: F10.229 Alcohol dependence with intoxication, unspecified (principal); K40.90 Unilateral inguinal hernia, without obstruction or gangrene, not specified as recurrent; K21.9 Gastro-esophageal reflux disease without esophagitis; Z72.0 Tobacco use; Z79.899 Other long term (current) drug therapy
CPT/HCPCS: 96372; 99284; J3486

== ENCOUNTER 2018-05-18 18:27 | Emergency (ER) | payer MEDICAID, SELFPAY ==
[2018-05-17 12:19] VITALS: BMI 33.0
[2018-05-18] VITALS (7 sets, daily range): BP systolic 122–170; BP diastolic 72–104; PULSE 75–110; RESP 17–26; TEMP 37.3; O2SAT 84–99; BMI 33.0
--- NOTE | 2018-05-18 18:46 | ED.RN ---
PT PRESENTS TO ED WITH BRUISES IN VARIOUS STAGES OF HEALING ON BACK, ABDOMEN, AND ARMS.
[2018-05-18] MEDS: LORazepam 2 MG/ML Syringe 1 MG IM (18:51)
[2018-05-18] MEDS: DiphenhydrAMINE 50 MG/ML Syringe IM (18:51)
[2018-05-18] MEDS: Haloperidol Lactate 5 MG/ML Vial IM (18:51)
[2018-05-18 19:12] LABS: Absolute Lymphocyte Count 2.77 X10^3/ul (0.83-4.51); Absolute Neutrophil Count 3.2 X10^3/uL (2.0-7.7); Basophil# 0.02 X10^3/uL; Basophil% 0.3 % (0-1); Eosinophil# 0.09 X10^3/uL; Eosinophils% 1.3 % (0-5); Lymphocyte # 2.77 X10^3/ul (4.0); Lymphocyte % 40.9 % (19-41); Mean Corp Hgb Conc 35.7 g/gl (32-36); Mean Corpuscular Volume 92.5 fL (80-94); Monocyte# 0.68 X10^3/uL; Neutrophil # 3.21 X10^3/uL (2.7-7.7); Neutrophil % 47.4 % (47-70); Platelet Count 129 K/mm3 (150-450); RBC Distribution Width SD 46.6 fl (35.1-43.9); Red Blood Count 4.54 M/mm3 (4.6-6.2); White Blood Count 6.8 K/mm3 (4.4-11.0)
[2018-05-18 19:15] LABS: POSITIVE COUNT NO; POSITIVE DIFFERENTIAL NO; POSITIVE MORPHOLOGY NO
--- NOTE | 2018-05-18 19:19 | ED.RN ---
THIS NURSE SPOKE WITH PT MOTHER. MOTHER SAYS PT HIT HIS HEAD YESTERDAY ON A TABLE AND BROKE THE TABLE
[2018-05-18 19:23] LABS: Anion Gap 10 (5-15); BUN 7 mg/dL (7-18); BUN/Creat Ratio 8.8 RATIO (10-20); Calcium,Total 8.6 mg/dL (8.5-10.1); Chloride 106 mmol/L (98-107); EST Glomerular Filtration Rate 106 mL/min (>60); Est Glom Filt Rate - Afr Amer 128 mL/min (>60); Glucose 109 mg/dL (74-106); Potassium 3.6 mmol/L (3.5-5.1); Sodium Level 143 mmol/L (136-145)
--- NOTE | 2018-05-18 19:33 | CT_ITS ---
STUDY: CT BRAIN WITHOUT CONTRAST REASON FOR EXAM: Male, 58 years old. EtOH abuse. Combative. Multiple falls. RADIATION DOSAGE (If Supplied By Facility): CTDIvol = ( 44.99 ) mGy, DLP = ( 880.87 ) mGycm TECHNIQUE: Transaxial CT imaging of the brain was performed without administration of intravenous contrast material. Individualized dose optimization techniques were used for this CT. COMPARISON: March 23, 2018. FINDINGS: Normal soft tissue structures. Normal calvarium. There is moderate cerebral atrophy with widening of the extra-axial spaces and ventricular dilatation. There are areas of decreased attenuation within the white matter tracts of the supratentorial brain, consistent with microvascular disease changes. Normal basal ganglia and thalami. Normal brainstem. Normal cerebellum. There is no intracranial hemorrhage. There are no findings of an acute ischemic infarction. Normal visualized paranasal sinuses. CT/Brain/Head without Contrast IMPRESSION: Chronic involutional changes without evidence of acute intracranial or calvarial abnormality. Electronically Signed: Chao Galeano DO at 21:07 EST Tel [phone], Service support ,
--- NOTE | 2018-05-18 19:37 | NURSING ---
PT INTOXICATED, MULTIPLE ATTEMPTS TO EXPLAIN TO PATIENT THAT HE NEEDS TO REMAIN IN THE BED. PT BELIGERANT AND COMBATIVE REFUSES COOPERATION. PT SHOUTING TO SPEAK WITH HIS MOM. ATTEMPTS TO CONTACT MOM MADE. MOTHER REFUSES TO ALLOW PT HOME. PT GIVEN URINAL REQUESTS, BUT BELIGERANT BEHAVIOR CONTINUES. PT SHOUTING, ATTEMPTING TO LEAVE BED AND DEPARTMENT. DR. BELL INFORMED. HRO AT BEDSIDE WITH PT.
[2018-05-18] MEDS: Ziprasidone IM 20 MG/ML VIAL IM (19:38)
--- NOTE | 2018-05-18 19:39 | ED.RN ---
DR BELL INFORMED OF MOTHER'S CONCERN THAT PT FELL YESTERDAY AND HIT HIS HEAD. CT ORDERED
--- NOTE | 2018-05-18 20:12 | ED.RN ---
DR BELL NOTIFIED OF ALCOHOL LEVEL
--- NOTE | 2018-05-18 20:32 | CT_ITS ---
STUDY: CT CERVICAL SPINE WITHOUT CONTRAST REASON FOR EXAM: Male, 58 years old. Trauma. Alcohol abuse. Combative. Multiple falls. RADIATION DOSAGE (If Supplied By Facility): CTDIvol = ( 17.44 ) mGy, DLP = ( 334.45 ) mGycm TECHNIQUE: High resolution transaxial imaging was performed without contrast material. Sagittal and coronal images were reconstructed. Individualized dose optimization techniques were used for this CT. COMPARISON: November 06, 2017. FINDINGS: Evaluation of the craniovertebral junction, anterior atlantoaxial articulation and odontoid is limited due to motion artifact. No obvious fracture or dislocation is noted. Normal cervical lordosis. Normal vertebral bodies and posterior osseous elements. C2-3: Normal endplates. Normal disc height and morphology. Normal central canal and intervertebral neuroforamina. C3-4: Minimal endplate spondylosis with slight loss of disc height. There is facet and uncovertebral joint degenerative change. Normal central canal and intervertebral neuroforamina. C4-5: Normal endplates. Loss of disc height. Facet and uncovertebral joint degenerative change. Normal central canal and intervertebral neuroforamina. C5-6: Normal endplates. Loss of disc height. Facet and uncovertebral joint degenerative change. Normal central canal and intervertebral neuroforamina. C6-7: Normal endplates. Normal disc height and morphology. Normal central canal and intervertebral neuroforamina. C7-T1: Normal endplates. Normal disc height and morphology. Normal central canal and intervertebral neuroforamina. Normal visualized soft tissue structures. CT/Spine Cervical without Contras IMPRESSION: Stable degenerative changes of the lumbar spine without acute fracture or subluxation. Electronically Signed: Chao Galeano DO at 21:10 EST Tel [phone], Service support ,
--- NOTE | 2018-05-18 22:03 | ED.RN ---
PT RESTRAINTS D/C AT 2150.
[2018-05-19] VITALS (8 sets, daily range): BP systolic 116–165; BP diastolic 75–99; PULSE 78–122; RESP 14–28; O2SAT 97–100
--- NOTE | 2018-05-19 00:12 | ED.VISSUMM ---
- ER Visit Summary Date of Service: 05/19/18 Chief Complaint: Alcohol intoxication History of Present Illness: The patient is a [address] Lee. He lives with his mother. She called EMS because he is intoxicated. The patient denies any complaints. He also denies wanting help with his alcohol abuse. Mother called into the emergency department reports patient fell and she is concerned that he may have an injury. Physical Examination: Vitals: Stable. Afebrile. General: Well-nourished and well-developed. Head: Normocephalic atraumatic. Neck: Supple, no lymphadenopathy. No JVD. Nontender. Cardiovascular: Regular rate and rhythm. No murmurs. Respiratory: No respiratory distress. Clear to auscultation bilaterally. Abdominal: Soft, nontender, nondistended, normal bowel sounds. No guarding, rebound, or peritoneal signs. Back: Nontender. Extremities: Nontender, no edema. Skin: Normal color, no rash. He does have bruises scattered over his extremities that are in different stages of healing. There is no evidence of swelling to his head. Neurologic: Alert, but clearly intoxicated. Moves all extremities well. Psych: Normal affect. Test Results: CBC is more for platelets of 129. Chem-7 is more for glucose of 109. Blood alcohol level is 414. CT brain shows chronic changes and no acute disease. CT C-spine shows degenerative changes. Emergency Department Course and Treatment: Patient was insistent that he was going to leave. He was given Haldol, Ativan, and Benadryl IM with essentially no change in his behavior. He was placed in four-point restraints and given Geodon IM. He is now sleeping comfortably and out of four-point restraints. Treatment Plan: Patient will be observed until he is clinically sober. He will then be discharged to home. Instructed to follow-up with Dr. Mary as needed. Disposition: To home in improved and stable condition. Impression: 1. Alcohol intoxication. This note was generated with [employer] dictation software. It may contain incorrect words, spelling, and punctuation that were not noted in review of the chart prior to signing ED Disposition - Plan for ED Patient: Chief Complaint: ETOH Intox Instructions: ED Alcohol Intoxication Referrals: Ernie Lee Chi, MD [Primary Care Provider] - As Needed
--- NOTE | 2018-05-19 06:45 | ED.RN ---
MOM CALLED AND SHE SAID PATIENT CAN RETURN HOME VIA TAXI SHE CAN PAY FOR IT WHEN HE GETS HOME. KEAGAN SEVILLA IS COMING AT 7:00AM. PATIENT WAS GIVEN PAPER PANTS AND BELONGINGS PRIOR TO DISCHARGE.
== END 2018-05-19 06:54 | disposition home or self-care (01) ==
PROVIDERS: Emergency Provider Emergency Medicine; Family Provider Family Medicine Geriatric Medicine; PCP Family Medicine Geriatric Medicine
DX: F10.129 Alcohol abuse with intoxication, unspecified (principal); Y90.8 Blood alcohol level of 240 mg/100 ml or more; S40.022A Contusion of left upper arm, initial encounter; S40.021A Contusion of right upper arm, initial encounter; S80.12XA Contusion of left lower leg, initial encounter; S80.11XA Contusion of right lower leg, initial encounter; W19.XXXA Unspecified fall, initial encounter; Y93.9 Activity, unspecified; Y92.9 Unspecified place or not applicable; Y99.9 Unspecified external cause status; Z78.1 Physical restraint status
CPT/HCPCS: 70450; 72125; 80048; 80320; 85025; 96372; 99285; A4216; G0480; J3486

== ENCOUNTER 2018-10-18 00:05 | Emergency (ER) | payer MEDICAID, SELFPAY ==
[2018-05-18 18:28] VITALS: BMI 33.0
[2018-10-18] VITALS (11 sets, daily range): BP systolic 133–165; BP diastolic 71–104; PULSE 90–133; RESP 14–22; TEMP 36.4; O2SAT 87–97; BMI 35.3
--- NOTE | 2018-10-18 01:13 | CT_ITS ---
STUDY: CT BRAIN WITHOUT CONTRAST REASON FOR EXAM: Male, 58 years old. Fall hitting head on chair. History of cirrhosis and pancreatic cancer. RADIATION DOSAGE (If Supplied By Facility): CTDIvol = ( 44.99 ) mGy, DLP = ( 846.73 ) mGycm TECHNIQUE: Transaxial CT imaging of the brain was performed without administration of intravenous contrast material. Individualized dose optimization techniques were used for this CT. COMPARISON: May 18, 2018. FINDINGS: Normal soft tissue structures. Normal calvarium. Normal size ventricles and extra-axial spaces for the patient's age. Normal white matter tracts of the cerebral hemispheres for the patient's age. Normal basal ganglia and thalami. Normal brainstem. Normal cerebellum. There is no intracranial hemorrhage. There are no findings of an acute ischemic infarction. There is now moderate right and severe left maxillary sinus disease. Total opacification left maxillary sinus. Mild to moderate ethmoid sinus mucosal thickening. Mild irregularity posterior wall left maxillary sinus unchanged. Mastoid air cells well aerated. CT/Brain/Head without Contrast IMPRESSION: No acute intracranial abnormality. Stable head CT the prior study. Moderate to severe bilateral maxillary sinus disease new since the prior study. Electronically Signed: Federico Hager MD at 3:12 EDT , Service support ,
[2018-10-18] MEDS: Ziprasidone IM 20 MG/ML VIAL IM (01:26)
[2018-10-18] MEDS: Haloperidol Lactate 5 MG/ML Vial IM (02:02)
[2018-10-18] MEDS: LORazepam 2 MG/ML Syringe IM (02:28)
--- NOTE | 2018-10-18 04:27 | ED.VISSUMM ---
- ER Visit Summary Date of Service: 10/18/18 Chief Complaint: Alcohol intoxication and fall History of Present Illness: The patient is a 58 M who presents with alcohol intoxication. Patient states he lives with his mother and whenever he gets drunk she gets upset and called EMS. There have been multiple prior ER visits with a similar presentation. Per report he fell and hit his head. The patient does not recall this although he does know that he fell. He actually has no complaints. He wants to leave. Physical Examination: Afebrile heart rate 119 vitals otherwise unremarkable No obvious signs of trauma such as lacerations, contusions, abrasions, hematoma. GCS is 15 with no focal or lateralizing neurological deficits Heart regular tachycardia Lungs clear Abdomen soft Test Results: CT of the head is unremarkable. Emergency Department Course and Treatment: Given report of head injury a CT of the brain was ordered. The patient became agitated and would not stay in bed. He does not have anyone who can take responsibility for him or take him home or monitor him at home. He is very unsteady on his feet and clinically he is significantly intoxicated. I was concerned about his safety. He was unable to ambulate on his own. Given that he was repetitively getting out of bed he was sedated with intramuscular Geodon. He continued to repetitively get up out of bed and was given additional Haldol and Ativan. Patient will be monitored until clinically sober and then discharged. Treatment Plan: [] Disposition: Discharge Impression: Alcohol intoxication This note was generated with [employer] dictation software. It may contain incorrect words, spelling, and punctuation that were not noted in review of the chart prior to signing ED Disposition - Plan for ED Patient: Referrals: Ernie Lee Chi, MD [Primary Care Provider] -
--- NOTE | 2018-10-18 04:30 | ED.DEP ---
ED Disposition - Plan for ED Patient: Instructions: ED Alcohol Intoxication Referrals: Ernie Lee Chi, MD [Primary Care Provider] -
--- NOTE | 2018-10-18 06:32 | ED.RN ---
Mother called and states she will find a ride home for pt when needed, she is unable to drive herself.
--- NOTE | 2018-10-18 09:18 | NURSING ---
PT HR IN THE 130-140'S. DR. DIAZ NOTIFIED. VERBAL ORDER OBTAINED FOR PO LIBRIUM.
--- NOTE | 2018-10-18 09:30 | NURSING ---
PATIENT AROUSING OCCASIONALLY AND YELLING OUT. WHEN DOING SO, PT HR INCREASING TO 130'S-140'S. PT STAYS AWAKE FOR A SHORT PERIOD OF TIME AND THEN FALLS BACK ASLEEP. PT IS UNABLE TO REMAIN AWAKE FOR MORE THAN A FEW MINUTES
[2018-10-18] MEDS: chlordiazePOXIDE 25 MG Capsule PO (09:46)
--- NOTE | 2018-10-18 11:13 | NURSING ---
[PT APPEARS TO BE SLEEPING AND IS HARD TO AROUSE. PT IS SNORING. PT WILL CONTINUE TO BE OBSERVED.
--- NOTE | 2018-10-18 13:30 | ED.RN ---
Pt awake and yelling that he wants to go home. Per Dr. Robles pt can leave if he is able to ambulate. Pt ambulated with steady gait and no assistance down the chen. Pt requesting a taxi to go home. Pt given hospital socks and paper pants. Taxi called, ETA 10 minutes. Discharge instructions reviewed with patient. Denies questions or needs.
== END 2018-10-18 13:50 | disposition home or self-care (01) ==
PROVIDERS: Emergency Provider Emergency Medicine; Family Provider Family Medicine Geriatric Medicine; PCP Family Medicine Geriatric Medicine
DX: F10.129 Alcohol abuse with intoxication, unspecified (principal); R45.1 Restlessness and agitation; S09.90XA Unspecified injury of head, initial encounter; W18.30XA Fall on same level, unspecified, initial encounter; Y93.9 Activity, unspecified; Y92.9 Unspecified place or not applicable; Y99.9 Unspecified external cause status
CPT/HCPCS: 70450; 96372; 99285; J3486

== ENCOUNTER 2018-11-03 18:47 | Emergency (ER) | payer MEDICAID, SELFPAY ==
[2018-10-18 00:08] VITALS: BMI 35.3
[2018-11-03 18:48] VITALS: PULSE 121; RESP 18; O2SAT 94
[2018-11-03 18:52] VITALS: BP 177/98; PULSE 121; RESP 18; TEMP 37.3; O2SAT 94; BMI 38.0
--- NOTE | 2018-11-03 18:53 | CT_ITS ---
HISTORY: FALL,ETOHHX:CIRRHOSIS,PANCREATIC CANCER EXAM/TECHNIQUE: CT Head or Brain W/O Contrast: Multiplanar reformats provided. COMPARISON: 10/18/18 CT brain FINDINGS: # of images incl. paperwork: 267 No evidence of intracranial hemorrhage, hydrocephalus mass, or acute infarct. No skull fracture. Scattered chronic appearing hypodensities in the cerebral white matter. Calcific atherosclerosis of the intracranial arteries. Right maxillary sinus mucosal thickening and fluid similar to prior. CT/Brain/Head without Contrast IMPRESSION: No evidence of intracranial injury or skull fracture. Right maxillary sinus mucosal thickening and fluid similar to prior. Individualized dose optimization techniques were used for this CT. at 2022 Reported and signed by: Samir Austin MD Electronically Signed: Samir Austin, at 20:20 EDT Tel , Service support ,
[2018-11-03] MEDS: LORazepam 2 MG/ML Syringe IM (19:08)
[2018-11-03] MEDS: Ziprasidone IM 20 MG/ML VIAL IM (19:08)
--- NOTE | 2018-11-03 20:44 | ED.VISSUMM ---
- ER Visit Summary Date of Service: 11/03/18 Chief Complaint: Alcohol intoxication, fall History of Present Illness: The patient is a 58 M presenting with alcohol intoxication, fall. According to EMS, mom called EMS due to multiple falls and hitting his head today. She told EMS she would not have called but because he hit his head she was concerned. History of frequent ED visits for similar complaints. On arrival patient is agitated and intoxicated. Admits to alcohol use today. He denies headache or other complaints. Physical Examination: Vitals are stable. Patient is afebrile. Alert no acute distress. HEENT exam is unremarkable. Neck is nontender Lungs are clear and equal bilaterally. Heart is regular rate and rhythm. Abdomen is soft nontender nondistended. Extremities symmetric edema Skin is warm and dry. No focal neurologic deficit. Intoxicated Remainder of exam is unremarkable. Emergency Department Course and Treatment: Patient was given Geodon, Ativan IM. CT head shows no evidence of intracranial injury or skull fracture. Right maxillary sinus mucosal thickening and fluid similar to prior. Alcohol level 575. Patient was observed in the ED. He will be checked out to oncoming physician. Disposition: Pending Impression: Alcohol intoxication, fall This note was generated with [employer] dictation software. It may contain incorrect words, spelling, and punctuation that were not noted in review of the chart prior to signing ED Disposition - Plan for ED Patient: Instructions: ED Alcohol Intoxication Referrals: Ernie Lee Chi, MD [Primary Care Provider] -
[2018-11-03 20:48] VITALS: RESP 16
--- NOTE | 2018-11-03 21:50 | ED.RN ---
DR. LEE AWARE OF ETOH 575.
[2018-11-03 22:00] VITALS: BP 124/76; PULSE 98; RESP 26; O2SAT 94
[2018-11-04 00:01] VITALS: RESP 18
--- NOTE | 2018-11-04 00:03 | ED.DEP ---
ED Disposition - Plan for ED Patient: Instructions: ED Alcohol Intoxication Referrals: Ernie Lee Chi, MD [Primary Care Provider] -
[2018-11-04 01:09] VITALS: BP 128/80; PULSE 90; RESP 16; O2SAT 97
--- NOTE | 2018-11-04 01:15 | ED.RN ---
PT RESTLESS TO LEAVE, PT WAS AXOX3. PER DR. EDOUARD AMBULATED PT IN THE KANG. PT REFUSED D/C INSTRUCTIONS. CALLED 5 [facility]AR TAXI FOR PT.
== END 2018-11-04 01:09 | disposition home or self-care (01) ==
PROVIDERS: Emergency Provider Emergency Medicine; Family Provider Family Medicine Geriatric Medicine; PCP Family Medicine Geriatric Medicine
DX: F10.129 Alcohol abuse with intoxication, unspecified (principal); Y90.8 Blood alcohol level of 240 mg/100 ml or more; R45.1 Restlessness and agitation; R29.6 Repeated falls
CPT/HCPCS: 36415; 70450; 80320; 96372; 99285; G0480; J3486

== ENCOUNTER 2019-01-28 16:16 | Emergency (ER) | payer MEDICAID, SELFPAY ==
[2019-01-28] VITALS (8 sets, daily range): BP systolic 140–158; BP diastolic 76–93; PULSE 98–124; RESP 14–24; TEMP 36.9; O2SAT 94–98; BMI 34.5
[2019-01-28] MEDS: Ziprasidone IM 20 MG/ML VIAL IM (16:38)
[2019-01-28 16:44] LABS: Absolute Lymphocyte Count 3.75 X10^3/uL (0.83-4.51); Absolute Neutrophil Count 4.2 X10^3/uL (2.0-7.7); Basophil# 0.06 X10^3/uL; Basophil% 0.7 % (0-1); Eosinophils% 1.1 % (0-5); Hematocrit 42.2 % (40-54); Hemoglobin 14.9 g/dL (13.0-16.5); Lymphocyte # 3.75 X10^3/ul (4.0); Lymphocyte % 42.4 % (19-41); Mean Corp Hgb Conc 35.3 g/dL (32-36); Mean Corpuscular Hgb 32.4 pg (27.0-32.0); Mean Corpuscular Volume 91.7 fL (80-94); Monocyte% 7.9 % (0-10); NRBC Flagged by Analyzer 0 % (0-5); Neutrophil # 4.18 X10^3/uL (2.7-7.7); Neutrophil % 47.3 % (47-70); Platelet Count 215 K/mm3 (150-450); RBC Distribution Width SD 43.7 fl (35.1-43.9); White Blood Count 8.8 K/mm3 (4.4-11.0)
[2019-01-28 16:57] LABS: AST(SGOT) 34 U/L (15-37); Alanine Aminotransfer ALT/SGPT 32 U/L (16-61); Alkaline Phosphatase 123 U/L (45-117); Anion Gap 11 (5-15); BUN 12 mg/dL (7-18); BUN/Creat Ratio 12.9 RATIO (10-20); Calcium,Total 8.1 mg/dL (8.5-10.1); Chloride 108 mmol/L (98-107); Creatinine, Serum 0.93 mg/dL (0.70-1.30); EST Glomerular Filtration Rate 89 mL/min (>60); Est Glom Filt Rate - Afr Amer 107 mL/min (>60); Estimated Creatinine Clearance 95.03 ml/min; Globulin 3.9 g/dL (2.2-4.2); Glucose 106 mg/dL (74-106); Lipase 83 U/L (73-393); Potassium 3.6 mmol/L (3.5-5.1); Protein, Total 7.9 g/dL (6.4-8.2); Sodium Level 144 mmol/L (136-145)
--- NOTE | 2019-01-28 17:05 | ED.RN ---
MULTIPLE TIMES PT ATTEMPTING TO GET OUT OF BED AND DOES NOT APPEAR TO COMPREHEND WHAT STAFF IS TRYING TO EXPLAIN TO THE PT. PT REPEATEDLY YELLING MOM. I NEED TO GO HOME AND ATTEMPTING TO GET OUT OF BED. PT AT THE END OF THE BED ATTEMPTING TO GET UP. WHEN SECURITY AND STAFF ATTEMPTED TO HELP THE PT BACK INTO BED THE PT BEGAN TO PULL AGAINST THE STAFF AND WALK OUT OF THE ROOM. PT CONTINUED TO PULL AGAINST THE STAFF. ADDITIONAL STAFF CALLED INTO THE ROOM TO HELP THE PT BACK INTO BED AND PULL HIM UP IN THE BED. DR BELL IN THE ROOM TO ASSIST THE STAFF. VERBAL ORDER FOR 4 POINT LOCKED RESTRAINTS OBTAINED. PT PLACED INTO 4 POINT LOCKED RESTRAINT WITHOUT INJURIES TO PT OR STAFF
--- NOTE | 2019-01-28 17:23 | ED.RN ---
DR BELL NOTIFIED OF ETOH RESULTS
[2019-01-28] MEDS: DiphenhydrAMINE 50 MG/ML Syringe 25 MG IM ×2 (17:24→19:51)
[2019-01-28] MEDS: Haloperidol Lactate 5 MG/ML Vial IM (17:24)
--- NOTE | 2019-01-28 17:27 | ED.RN ---
PT CONTINUING TO YELL AND ATTEMPT TO GET OUT OF BED WHEN HE WAKES UP. PT EASILY AWOKEN.
--- NOTE | 2019-01-28 17:28 | ED.DCSUM_ITS ---
- ER Visit Summary Date of Service: 01/28/19 Chief Complaint: Alcohol intoxication History of Present Illness: The patient is a 58 M per EMS patient has been arguing with his mother. She called EMS multiple times wanting him transported to the emergency department. I am unable to obtain anything of the use from the patient. Physical Examination: Vitals: 98.4, 150/92, 124, 20, 95% on room air which is not hypoxic General: Well-nourished and well-developed. Head: Normocephalic atraumatic. Neck: Supple, no lymphadenopathy. No JVD. Nontender. Cardiovascular: Tachycardic regular rhythm. No murmurs. Respiratory: No respiratory distress. Clear to auscultation bilaterally. Abdominal: Soft, nontender, nondistended, normal bowel sounds. No guarding, rebound, or peritoneal signs. Back: Nontender. Extremities: Nontender, no edema. Skin: Normal color, no rash. Neurologic: Alert and intoxicated. Moves all extremities well. Psych: Agitated. Test Results: CBC shows lymphocytes 42. Chem-7 shows a chloride of 108 and calcium 8.1. LFTs show an alk phos of 123. Blood alcohol level is 410. Emergency Department Course and Treatment: Patient was given a dose of Geodon IM with no improvement in his agitation. He was then given Haldol and Benadryl IM with again no improvement. He was given Ativan and another dose of Benadryl IM. He is now resting comfortably. Treatment Plan: Patient will be observed overnight. When his alcohol level has decreased and his mother can come and get him in the morning he will be discharged. Disposition: Pending Impression: 1. Alcohol intoxication. This note was generated with [employer] dictation software. It may contain incorrect words, spelling, and punctuation that were not noted in review of the chart p rior to signing ED Disposition - Plan for ED Patient: Instructions: Alcohol Intoxication Referrals: [facility] [STAFF PHYSICIAN] - As soon as possible
[2019-01-28] MEDS: LORazepam 2 MG/ML Syringe 1 MG IM ×2 (18:18→19:49)
--- NOTE | 2019-01-28 22:28 | ED.RN ---
PT LEFT WRIST AND RIGHT ANKLE TAKEN OUT OF LONCKED RESTRAINTS
--- NOTE | 2019-01-28 22:48 | ED.RN ---
PT SLEEPING. BREATHING THROUGH HIS MOUTH. PULSE OX DROPPED TO 82%. PLACED ON O2 VIA N/C. NOT EFFECTIVE D/T BREATHING THROUGH HIS MOUTH. PLACED ON NONREBREATHER. PULSE OX 98%. DR BELL AWARE.
--- NOTE | 2019-01-28 23:50 | ED.RN ---
RIGHT WRIST AND LEFT ANKLE RESTRAINTS REMOVED. PT LAYING IN BED SLEEPING.
[2019-01-29] VITALS: BP 155/87; PULSE 104; RESP 23; O2SAT 98
[2019-01-29 00:46] VITALS: BP 173/93; PULSE 114; RESP 23; O2SAT 92
[2019-01-29 01:00] VITALS: BP 161/108; PULSE 94; RESP 23; O2SAT 92
[2019-01-29 02:00] VITALS: BP 150/77; PULSE 107; RESP 22; O2SAT 94
[2019-01-29 02:56] VITALS: BP 142/79; PULSE 82; RESP 20; O2SAT 97
--- NOTE | 2019-01-29 02:57 | ED.RN ---
PT AMBULATES TO AND FROM BATHROOM. PT STEADY ON FEET. THIS NURSE REVIEWED D/C INSTRUCTIONS WITH PT. PT VERBALIZED UNDERSTANDING OF INSTRUCTIONS. THIS NURSE WALKED WITH PT TO FRIEND'S VEHICLE. PT APOLOGETIC AND VERBALIZED APPRECIATION FOR CARE
== END 2019-01-29 03:02 | disposition home or self-care (01) ==
PROVIDERS: Emergency Provider Emergency Medicine; Family Provider Family Medicine Geriatric Medicine; PCP Family Medicine Geriatric Medicine
DX: F10.129 Alcohol abuse with intoxication, unspecified (principal); Y90.8 Blood alcohol level of 240 mg/100 ml or more; R00.0 Tachycardia, unspecified; R45.1 Restlessness and agitation
CPT/HCPCS: 80053; 80320; 83690; 85025; 96372; 99285; A4216; G0480; J3486

== ENCOUNTER 2019-02-04 07:31 | Emergency (ER) | payer MEDICAID, SELFPAY ==
[2019-01-28 16:25] VITALS: BMI 34.5
[2019-02-04 07:32] VITALS: BP 132/99; PULSE 132; RESP 26; TEMP 37.6; O2SAT 93; BMI 37.4
--- NOTE | 2019-02-04 07:53 | ED.DCSUM_ITS ---
History of Present Illness Chief Complaint: ETOH Intox Informant: Patient Onset: Month(s) Current Severity: Mild Narrative: The patient presents with police and paramedics apparently he lives with his mother who is about 90 years old, he has a history of being chronic alcoholism, he has persistent alcohol abuse per the mother he has fallen a few times she indicates she cannot manage him in the home given his condition of alcohol abuse and falling and he was brought in by EMS he does not wish to be here he indicates that he is fine he simply wants to go home take care of his mother he has no specific complaints of any kind he has had abrasions to his knees he is awake to his name the fact he is at [facility] Past Medical History - Allergies and Home Meds Allergies/Adverse Reactions: Allergies No Known Allergies Allergy (Verified 01/28/19 16:26) Primary Care Physician: Ernie Lee Chi, MD [Primary Care Provider] - Past Medical History: - - As above Surgical History: noncontributory Smoking Status: Current every day smoker - Family History Maternal Family History: Reports: Heart Disease - valve problem Review of Systems General: Denies: Chills, Fever, Sweats Eyes: Denies: Visual changes - bilaterally, Diplopia ENT: Denies: Rhinorrhea, Sore throat Cardiovascular: Denies: Chest pain, Palpitations Respiratory: Denies: Dyspnea, Cough, Dyspnea on exertion Gastrointestinal: Denies: Abdominal pain, Nausea, Vomiting, Diarrhea, Melena, Hematochezia Genitourinary: Denies: Dysuria, Hematuria, Frequency Musculoskeletal: Reports: - - He has abrasions to his knees but he has no complaints of any kind moving all 4 extremities. Denies: Back pain, Extremity Pain Skin: Denies: Rash, Wounds Neurological: Denies: Headache, Weakness, Numbness Physical Exam Vital Signs/Narrative: Vital Signs Temp Pulse Resp BP Pulse Ox 02/04/19 07:32 99.7 F H 132 H 26 H 132/99 H 93 General: Well nourished, Well developed, No Acute Distress Head: Normocephalic, Atraumatic Eyes: Perrl, EOMI ENT: Moist mucous membranes, No rhinorrhea Neck: Supple, Nontender Cardiovascular: Regular rate, Regular rhythm, No murmurs Respiratory: No distress, CTA bilaterally, Chest nontender Abdomen: Soft, Nontender, Nondistended, Normal bowel sounds Back: Nontender, Normal Inspection Extremities: Nontender, No edema Skin: Normal color, No rash Neurological: Alert, Oriented x3, Cranial nerves II-XII grossly intact, Normal Strength, Normal Sensation, - Psychological: Normal affect, Normal Mood, Agitated, - - He indicates he is fine he wants took care of his mother and leave the department he has no complaints Diagnostic/Tx/Re-eval - Medical Decision Making Obviously intoxicated has no specific complaints other than he wants to leave screening labs observation Patient's alcohol level was 410 his other screening labs are generally unremarkable see those reports he is resting company in the emergency department at this time he is been under observation he has no complaints his vital signs are stable we are anticipating that his family will come assumes responsibility and take him home which is what usually happens, we have discussed detox with him that does not appear to be anything that interests him Home stable Final impression Alcohol abuse ED Disposition - Plan for ED Patient: Diagnosis: Alcohol abuse Instructions: Alcohol Intoxication Referrals: Ernie Lee Chi, MD [Primary Care Provider] - Additional Instructions: Consider going to alcohol detox
[2019-02-04 08:02] LABS: Absolute Lymphocyte Count 2.76 X10^3/uL (0.83-4.51); Basophil# 0.05 X10^3/uL; Basophil% 0.6 % (0-1); Eosinophil# 0.16 X10^3/uL; Eosinophils% 2.1 % (0-5); Hematocrit 41.2 % (40-54); Hemoglobin 14.6 g/dL (13.0-16.5); Lymphocyte # 2.76 X10^3/ul (4.0); Lymphocyte % 35.6 % (19-41); Mean Corp Hgb Conc 35.4 g/dL (32-36); Mean Corpuscular Volume 93.2 fL (80-94); Mean Platelet Vol. 9.3 fl (6.2-12.0); Monocyte# 0.71 X10^3/uL; Monocyte% 9.2 % (0-10); NRBC Flagged by Analyzer 0 % (0-5); Neutrophil # 4.03 X10^3/uL (2.7-7.7); Platelet Count 175 K/mm3 (150-450); RBC Distribution Width CV 13.8 % (11.6-14.6); Red Blood Count 4.42 M/mm3 (4.6-6.2); White Blood Count 7.8 K/mm3 (4.4-11.0)
[2019-02-04] MEDS: 0.9% Normal Saline 1,000 ML 150 ML IV (08:16)
[2019-02-04] MEDS: Ziprasidone IM 20 MG/ML VIAL IM (08:27)
[2019-02-04 08:28] LABS: Anion Gap 12 (5-15); BUN 12 mg/dL (7-18); BUN/Creat Ratio 14.1 RATIO (10-20); Calcium,Total 8.1 mg/dL (8.5-10.1); Chloride 113 mmol/L (98-107); Creatinine, Serum 0.85 mg/dL (0.70-1.30); EST Glomerular Filtration Rate 98 mL/min (>60); Est Glom Filt Rate - Afr Amer 118 mL/min (>60); Estimated Creatinine Clearance 97.81 ml/min; Glucose 114 mg/dL (74-106); Sodium Level 147 mmol/L (136-145)
[2019-02-04 10:15] VITALS: RESP 16
[2019-02-04 11:20] VITALS: RESP 16
[2019-02-04 12:33] VITALS: RESP 18
[2019-02-04 12:45] VITALS: RESP 16
[2019-02-04 12:45] LABS: Amphetamine Urine VISTA NEGATIVE (<1000 ng/mL); Barbiturate Urine VISTA NEGATIVE (< 200 ng/mL); Benzodiazepine Urine VISTA NEGATIVE (< 200 ng/mL); Cocaine Urine VISTA NEGATIVE (< 300 ng/mL); Ecstacy Urine VISTA NEGATIVE (< 500 ng/mL); Methadone Urine VISTA NEGATIVE (< 300 ng/mL); PCP Urine VISTA NEGATIVE (< 25 ng/mL); THC Urine VISTA NEGATIVE (< 50 ng/mL); Vista UDS pH Range 5
--- NOTE | 2019-02-04 12:51 | ED.RN ---
0735-Pt uncooperative and refusing to stay in bed. He is obviously intoxicated, as he has slurred speech and poor recollection to recent conversation. He does not respond to attempts to redirect and reenforce. I was unable to leave the side of the bed over 40 minutes. He continually tried to climb from the bed. Attempts to change bed positioning did not help. He was given soda per request but was unable to hold it on his own. Pt was medicated to help calm him. He climbed to the end to the bed twice then was placed in opposite leather restraints to ensure his safety. The right wrist was moved from the above head position to beside the patient for comfort per pt request.
== END 2019-02-04 12:57 | disposition home or self-care (01) ==
LOC: ED 08:29
PROVIDERS: Emergency Provider Emergency Medicine; Family Provider Family Medicine Geriatric Medicine; PCP Family Medicine Geriatric Medicine
DX: F10.229 Alcohol dependence with intoxication, unspecified (principal); Y90.8 Blood alcohol level of 240 mg/100 ml or more; S80.212A Abrasion, left knee, initial encounter; S80.211A Abrasion, right knee, initial encounter; W19.XXXA Unspecified fall, initial encounter; Y93.9 Activity, unspecified; Y92.9 Unspecified place or not applicable; Y99.9 Unspecified external cause status; F17.200 Nicotine dependence, unspecified, uncomplicated
CPT/HCPCS: 80048; 80307; 80320; 85025; 96360; 96361; 96372; 99285; J7030; G0480; J3486

== ENCOUNTER 2019-02-07 15:54 | Emergency (ER) | payer MEDICAID, SELFPAY ==
[2019-02-07] VITALS (9 sets, daily range): BP systolic 115–179; BP diastolic 70–106; PULSE 96–125; RESP 16–24; TEMP 36.8; O2SAT 93–97; BMI 35.9
--- NOTE | 2019-02-07 16:06 | ED.VIS.GEN ---
History of Present Illness Chief Complaint: ETOH Intox Informant: Patient Limited by: Intoxicated Onset: Days Context: Gradual Onset Timing: Intermittent Current Severity: Moderate Maximum Severity: Severe Narrative: The patient presents to the emergency department with police. The patient is intoxicated. He admits to drinking. Apparently, his mother had called the police and stated that he has not been eating and has only been drinking. The patient was arrested for DUI last night. He was discharged back to his house. He has been drinking all day. He denies being suicidal homicidal. Please were just concerned with his alcohol abuse and the fact that he lives with his elderly mother and wanted him to be evaluated. The patient is well-known to this emergency department. He denies any injuries. He denies any thoughts of self-harm. Prior similar symptoms: No Recent Illness/Hospitalization: No Past Medical History - Allergies and Home Meds Allergies/Adverse Reactions: Allergies No Known Allergies Allergy (Verified 02/07/19 15:57) Primary Care Physician: Ernie Lee Chi, MD [Primary Care Provider] - Prior records reviewed: Yes Past Medical History: - Surgical History: noncontributory Smoking Status: Current every day smoker - Family History Maternal Family History: Reports: Heart Disease - valve problem Review of Systems General: Denies: Chills, Fever, Sweats Eyes: Denies: Visual changes - bilaterally, Diplopia ENT: Denies: Rhinorrhea, Sore throat Cardiovascular: Denies: Chest pain, Palpitations Respiratory: Denies: Dyspnea, Cough, Dyspnea on exertion Gastrointestinal: Denies: Abdominal pain, Nausea, Vomiting, Diarrhea, Melena, Hematochezia Genitourinary: Denies: Dysuria, Hematuria, Frequency Musculoskeletal: Denies: Back pain, Extremity Pain Skin: Denies: Rash, Wounds Neurological: Denies: Headache, Weakness, Numbness Physical Exam Vital Signs/Narrative: Vital Signs Temp Pulse Resp Pulse Ox 02/07/19 15:54 98.2 F 125 H 20 H 95 General: Well nourished, Unkempt, No Acute Distress Head: Normocephalic, Atraumatic Eyes: Perrl, EOMI ENT: Moist mucous membranes, No rhinorrhea Neck: Supple, Nontender Cardiovascular: Regular rhythm, No murmurs, Tachycardia Respiratory: No distress, CTA bilaterally, Chest nontender Abdomen: Soft, Nontender, Nondistended, Normal bowel sounds Back: Nontender, Normal Inspection Extremities: Nontender, No edema Skin: Normal color, No rash Neurological: Alert, Cranial nerves II-XII grossly intact, Normal Strength, Normal Sensation, Disoriented Psychological: Normal affect, Normal Mood Diagnostic/Tx/Re-eval Abnormal Lab Results 02/07/19 02/07/19 02/07/19 16:40 16:40 16:40 WBC 6.3 RBC 4.31 L Hgb 14.0 Hct 39.9 L MCV 92.6 MCH 32.5 H MCHC 35.1 RDW Std Deviation 46.0 H RDW Coeff of Valerio 13.5 Plt Count 190 MPV 9.1 Immature Gran % (Auto) 0.300 Neut % (Auto) 46.0 L Lymph % (Auto) 36.8 [place] % (Auto) 15.1 H Eos % (Auto) 1.0 Baso % (Auto) 0.8 Absolute Neuts (auto) 2.9 Absolute Lymphs (auto) 2.32 Nucleated RBC % 0 Sodium 141 Potassium 3.6 Chloride 108 H Carbon Dioxide 23.0 Anion Gap 10 BUN 10 Creatinine 0.76 Estim Creat Clear Calc 109.39 Est GFR (MDRD) Af Amer 136 Est GFR (MDRD) Non-Af 112 BUN/Creatinine Ratio 13.2 Glucose 111 H Calcium 8.2 L Ethyl Alcohol 396.0 H* - Medical Decision Making The patient presents obviously intoxicated and he has a well-known history of alcohol abuse and dependence. He is not suicidal homicidal. However, the patient was getting increasingly agitated and aggressive towards staff. He had to be placed in four-point restraints. He was given Benadryl and Geodon. He was more comfortable. Screening labs do show intoxication but otherwise unremarkable. At this point, the patient will be observed until he can demonstrate sobriety and be reevaluated. My suspicion is that this is his normal behavior given his significant alcohol abuse and frequent visits after review of the charts. Patient does not voice any interest in detox at this time. He will be reevaluated once sober. Impression 1. Alcohol intoxication ED Disposition - Plan for ED Patient: Instructions: Alcohol Intoxication Referrals: Ernie Lee Chi, MD [Primary Care Provider] -
[2019-02-07] MEDS: Ziprasidone IM 20 MG/ML VIAL IM (16:12)
[2019-02-07] MEDS: DiphenhydrAMINE 50 MG/ML Syringe IM (16:12)
--- NOTE | 2019-02-07 16:47 | ED.RN ---
PT ARRIVES IN POLICE CUSTODY FOR POSSIBLE ETOH INTOXICATION. HE IS UNABLE TO WALK WITHOUT STUMBLING. PT SMELLS OF ETOH AND HAS PRIOR HX OF ETOH ABUSE. AFTER MULTIPLE ATTEMPTS TO ASSIST PATIENT TO STAY IN BED AND TO RELAX HE WAS GIVEN BENADRYL AND GEODON TO ASSIST. AFTER WAITING FOR MEDICATION TO TAKE AFFECT HE CONTINUED TO REFUSE TO REST IN THE BED WITH THE ASSISTANCE OF MULTIPLE STAFF MEMBERS. RESTRAINTS WERE APPLIED AT THIS TIME TO ENCOURAGE HIM TO REMAIN IN THE BED SO HE WOULDN'T FALL OR INJURY A STAFF MEMBER. NO STAFF OR THE PATIENT WAS INJURED DURING IMPLEMENTATION OF RESTRAINTS. Jose ROBBINS RN [id number] DR. DIAZ WAS INTO PT ROOM AT 1700. Jose ROBIBNS RN [id number]
[2019-02-07 16:50] LABS: Absolute Lymphocyte Count 2.32 X10^3/uL (0.83-4.51); Absolute Neutrophil Count 2.9 X10^3/uL (2.0-7.7); Basophil# 0.05 X10^3/uL; Basophil% 0.8 % (0-1); Eosinophil# 0.06 X10^3/uL; Hematocrit 39.9 % (40-54); Lymphocyte # 2.32 X10^3/ul (4.0); Lymphocyte % 36.8 % (19-41); Mean Corp Hgb Conc 35.1 g/dL (32-36); Mean Corpuscular Hgb 32.5 pg (27.0-32.0); Mean Corpuscular Volume 92.6 fL (80-94); Mean Platelet Vol. 9.1 fl (6.2-12.0); Monocyte# 0.95 X10^3/uL; Monocyte% 15.1 % (0-10); NRBC Flagged by Analyzer 0 % (0-5); Platelet Count 190 K/mm3 (150-450); RBC Distribution Width CV 13.5 % (11.6-14.6); Red Blood Count 4.31 M/mm3 (4.6-6.2); White Blood Count 6.3 K/mm3 (4.4-11.0)
[2019-02-07 17:05] LABS: Anion Gap 10 (5-15); BUN 10 mg/dL (7-18); BUN/Creat Ratio 13.2 RATIO (10-20); Calcium,Total 8.2 mg/dL (8.5-10.1); Chloride 108 mmol/L (98-107); Creatinine, Serum 0.76 mg/dL (0.70-1.30); EST Glomerular Filtration Rate 112 mL/min (>60); Est Glom Filt Rate - Afr Amer 136 mL/min (>60); Estimated Creatinine Clearance 109.39 ml/min; Glucose 111 mg/dL (74-106); Potassium 3.6 mmol/L (3.5-5.1); Sodium Level 141 mmol/L (136-145)
--- NOTE | 2019-02-07 17:31 | NURSING ---
medical hx obtained for prior visits. mark lewis rn [id number]
--- NOTE | 2019-02-07 17:53 | ED.RN ---
attempt was made to collect urine. he was unable to go. adult brief was placed on patient incase of an accident. lynnette lewis rn [id number]
--- NOTE | 2019-02-07 18:20 | ED.RN ---
pt was placed on a bedpan. he was unable to provide urine or defecate. assisted back into adult brief. dressing applied to abrasion on right knee. arms were rotated in and out of upright position. lynnette lewis rn [id number]
--- NOTE | 2019-02-07 18:35 | ED.RN ---
two restraints removed. attempting to get patient out of restraints. lynnette lewis rn [id number]
--- NOTE | 2019-02-07 20:07 | ED.RN ---
RESTRAINTS REMOVED 1999. HE WAS INSTRUCTED TO REMAIN IN THE BED. Jose ROBBINS RN 2008
--- NOTE | 2019-02-07 22:14 | ED.RN ---
[facility] ARRIVED FOR THIS PT, [facility] APPEARED TO BE SOBER AND ABLE TO CARE FOR THIS PT TO INSURE ARRIVAL HOME
--- NOTE | 2019-02-07 22:18 | ED.RN ---
THIS NURSE DISCUSSED WITH PT IMPORTANCE OF NOT DRINKING ALCOHOL. PT VERBALIZED UNDERSTANDING OF DISCUSSION.
== END 2019-02-07 22:28 | disposition home or self-care (01) ==
PROVIDERS: Emergency Provider Emergency Medicine; Family Provider Family Medicine Geriatric Medicine; PCP Family Medicine Geriatric Medicine
DX: F10.229 Alcohol dependence with intoxication, unspecified (principal); R45.1 Restlessness and agitation; Z78.1 Physical restraint status; F17.200 Nicotine dependence, unspecified, uncomplicated
CPT/HCPCS: 80048; 80320; 85025; 96372; 99284; G0480; J3486

== ENCOUNTER 2019-02-09 18:19 | Emergency (ER) | payer MEDICAID, SELFPAY ==
[2019-02-07 16:42] VITALS: BMI 35.9
[2019-02-09 18:20] VITALS: BP 163/97; PULSE 129; RESP 20; TEMP 36.2; O2SAT 95; BMI 38.1
--- NOTE | 2019-02-09 18:55 | CT_ITS ---
STUDY: CT BRAIN WITHOUT CONTRAST REASON FOR EXAM: Male, 58 years old. Trauma, disorientation, ethanol use. RADIATION DOSAGE (If Supplied By Facility): CTDIvol = ( 44.99 ) mGy, DLP = ( 863.60 ) mGycm TECHNIQUE: Transaxial CT imaging of the brain was performed without administration of intravenous contrast material. Individualized dose optimization techniques were used for this CT. COMPARISON: Prior study of 11/03/2018 FINDINGS: Normal soft tissue structures. Normal calvarium. There is moderate cerebral atrophy with widening of the extra-axial spaces and ventricular dilatation. There are areas of decreased attenuation within the white matter tracts of the supratentorial brain, consistent with microvascular disease changes. Normal basal ganglia and thalami. Normal brainstem. There is mild cerebellar atrophy. There is no intracranial hemorrhage. There are no findings of an acute ischemic infarction. Normal visualized paranasal sinuses. CT/Brain/Head without Contrast IMPRESSION: Chronic involutional changes of the brain. There is no intracranial hemorrhage or calvarial fracture. Electronically Signed: Samir Zapien MD at 19:52 EDT , Service support ,
--- NOTE | 2019-02-09 18:58 | ED.VIS.GEN ---
History of Present Illness Chief Complaint: Fall Detail of Chief Complaint: Injury, injury to her extremities Informant: Patient Limited by: Intoxicated Onset: Today Context: Sudden Onset Quality: Patient not oriented, not cooperative Location: Res[facility] Current Severity: - - Unable to determine Maximum Severity: - - Unable to determine Worsened by: Alcohol use/abuse Relieved by: Unable to determine Associated Symptoms: Unable to determine Narrative: Patient is a 58-year-old male known alcoholic who fell down multiple steps injuring his head. He is disoriented. He is not cooperative. He is unable to tell me his age, month or birthdate. Clinically he is intoxicated. In my professional medical opinion patient does not have capacity to make medical decision on his behalf. Mother called in and asked that we evaluate him. Prior similar symptoms: Yes Recent Illness/Hospitalization: Yes Capacity - Capacity Assessment Tool Can the patient make a choice & communicate that choice?: No Can the patient understand benefits, risks and alternatives?: No Can the patient make a logical, rational choice?: No Is the choice the patient makes consistent w/ their values?: Unable to Determine Is there an impending, emergent risk to the patient?: Yes - There is a possible impending emergent condition that needs evaluation Does the patient have an Advance Directive?: Unable to Determine Is there a Surrogate Available?: Yes - Mother called in and asked for her son to be evaluated i.e. HCPOA: Unable to Determine i.e. close relative (spouse, child, parent, sibling)?: Yes - Deviously documented - Past Medical History (1) Alcohol dependence syndrome Status: Chronic Past Medical History - Allergies and Home Meds Allergies/Adverse Reactions: Allergies No Known Allergies Allergy (Verified 02/07/19 15:57) Primary Care Physician: Ernie Lee Chi, MD [Primary Care Provider] - Prior records reviewed: Yes Surgical History: noncontributory Lives: With Family Smoking Status: Unknown if ever smoked Alcohol: Heavy Drugs: - - Known - Family History Maternal Family History: Reports: Heart Disease - valve problem Review of Systems ROS: Unable to Obtain - Disoriented Physical Exam Vital Signs/Narrative: Vital Signs Temp Pulse Resp BP Pulse Ox 02/09/19 18:20 97.1 F L 129 H 20 H 163/97 H 95 Inital Vital Signs reviewed: Yes General: Well nourished, Well developed, Acute Distress - Vision is diaphoretic, tachycardic and not redirectable Head: Normocephalic, Trauma, Tenderness - Forehead Eyes: Perrl, EOMI. Negative for: Pale conjunctiva, Scleral icterus - Is no subconjunctival hemorrhage noted. ENT: Moist mucous membranes, No rhinorrhea, TM's clear, - - No clinical findings of basal skull fracture Neck: Supple, - - Struggle to examine and struggle to apply a c-collar. Cardiovascular: Regular rhythm, No murmurs, Normal S1, Normal S2, Tachycardia Respiratory: No distress, CTA bilaterally Abdomen: Soft, Nontender, Umbilical hernia, Hernia reducible Extremities: Tenderness, Edema - Bruising right leg. Negative for: Nontender, No edema Skin: Normal color, Trauma - Couple abrasions Neurological: Cranial nerves II-XII grossly intact, Normal Strength. Negative for: Alert, Oriented x3, Normal Gait Psychological: Agitated Diagnostic/Tx/Re-eval Chest X-Ray - ED: 2 View, Read by ED Physician, - - Area of right tib-fib was interpreted by me. The CT of the neck and head were reviewed by me and awaiting radiologist read. The CT T of the head revealed no acute intracranial bleed or skull fracture. C-spine revealed no subluxation, dislocation or fracture. The two-view x-ray of the right tib-fib reveals no evidence of fracture. Impressions Brain CT 02/09/19 18:55 IMPRESSION: Chronic involutional changes of the brain. There is no intracranial hemorrhage or calvarial fracture. Electronically Signed: Samir Zapien MD at 19:52 EDT , Service support , Cervical Spine CT 02/09/19 19:07 IMPRESSION: Multilevel degenerative changes, as described above. There is no evidence of fracture or subluxation. Electronically Signed: Samir Zapien MD at 19:59 EDT , Service support , Tibia/Fibula X-Ray 02/09/19 19:25 IMPRESSION: Normal x-ray examination of the tibia and fibula. Electronically Signed: Samir Zapien MD at 19:59 EDT , Service support , 02/09/19 18:55 Brain/Head without Contrast [CT] Stat 02/09/19 19:07 CT Cervical [Spine Cervical without Contras] [CT] Stat 02/09/19 19:25 Tibia & Fibula 2 Views [RAD] Stat Laboratory Results 02/09/19 19:06 Ethyl Alcohol 427.0 H* - Medical Decision Making Uncooperative, intoxicated and does not have capacity to make medical decision. IV was established and he received 5 mg of Haldol IV push and 2 mg of Versed IV push. Since he is not medically stable since his vitals are abnormal and cannot clear his neck will obtain CT of the neck as well as CT of the head after he receives IV medication. An x-ray of his leg was obtained as well. Alcohol level was obtained to determine when he is not legally intoxicated able to sign out if he so desires at that time. His alcohol level is greater than 400. He will need reassessment in morning once he is no longer under the influence of alcohol. Since the CT of the head and neck were negative and blood work other than the elevated alcohol is unremarkable once he is sober and reevaluated he may be discharged home. Patient was reassessed at 2300. He is still not directable and does not comprehend why he is in the emergency department. He will be reassessed in the morning by the evening physician. ED Disposition - Plan for ED Patient: Diagnosis: Traumatic brain injury with brief (less than 1 hour) loss of consciousness, Sprain of cervical neck, Contusion of right lower leg, initial encounter, Abrasion, multiple sites, Alcohol intoxication, Silvio coma scale verbal score 4, confused, disoriented Instructions: Concussion, Abrasion, Neck Sprain/Strain, CONTUSION, Lower Extremity, Alcohol Intoxication Referrals: Ernie Lee Chi, MD [Primary Care Provider] - 3-5 Days [facility] [STAFF PHYSICIAN] - As soon as possible
[2019-02-09] MEDS: Haloperidol Lactate 5 MG/ML Vial IV (19:02)
[2019-02-09] MEDS: Midazolam 2 MG/2 ML Syringe IV (19:02)
--- NOTE | 2019-02-09 19:07 | CT_ITS ---
STUDY: CT CERVICAL SPINE WITHOUT CONTRAST REASON FOR EXAM: Male, 58 years old. Trauma RADIATION DOSAGE (If Supplied By Facility): CTDIvol = ( 29.85 ) mGy, DLP = ( 624.31 ) mGycm TECHNIQUE: High resolution transaxial imaging was performed without contrast material. Sagittal and coronal images were reconstructed. Individualized dose optimization techniques were used for this CT. COMPARISON: Prior study of 05/18/2018 FINDINGS: Normal craniovertebral junction. Normal anterior atlantoaxial articulation. Normal odontoid process. Normal cervical lordosis. Normal vertebral bodies and posterior osseous elements. C2-3: Normal endplates. Normal disc height and morphology. Normal central canal and intervertebral neuroforamina. C3-4: There is mild endplate spondylosis of C3. There are mild bilateral degenerative facet changes left side more severely affected than right. There is mild left foraminal narrowing. There is no central canal stenosis. C4-5: There are mild bilateral degenerative facet changes. Disc spacing is normal. There is no central canal stenosis or foraminal narrowing. C5-6: Disc spacing is normal. The facets are within normal limits. There is no central canal stenosis or foraminal narrowing. C6-7: Normal endplates. Normal disc height and morphology. Normal central canal and intervertebral neuroforamina. C7-T1: Normal endplates. Normal disc height and morphology. Normal central canal and intervertebral neuroforamina. Normal visualized soft tissue structures. CT/Spine Cervical without Contras IMPRESSION: Multilevel degenerative changes, as described above. There is no evidence of fracture or subluxation. Electronically Signed: Samir Zapien MD at 19:59 EDT , Service support ,
[2019-02-09 19:19] VITALS: BP 128/68; PULSE 115; RESP 17; O2SAT 96
--- NOTE | 2019-02-09 19:25 | RAD_ITS ---
STUDY: X-RAY - RIGHT TIBIA AND FIBULA REASON FOR EXAM: Male, 58 years old. Trauma TECHNIQUE: 4 view(s) of the tibia and fibula were obtained. COMPARISON: None. FINDINGS: Normal visualized tibia. Normal visualized fibula. The soft tissue structures are unremarkable. RAD/Tibia & Fibula 2 Views IMPRESSION: Normal x-ray examination of the tibia and fibula. Electronically Signed: Samir Zapien MD at 19:59 EDT , Service support ,
--- NOTE | 2019-02-09 19:54 | ED.RN ---
lab called with critical lab results. etoh level 427. Dr. Robles made aware. no new orders at this time
[2019-02-09 20:00] VITALS: BP 137/73; PULSE 121; RESP 18; O2SAT 98
[2019-02-09 21:00] VITALS: PULSE 117; RESP 17; O2SAT 96
--- NOTE | 2019-02-09 21:47 | ED.RN ---
mother called in and updated on patients condition at this time
[2019-02-09 22:00] VITALS: BP 129/64; PULSE 122; RESP 16; O2SAT 97
[2019-02-09 23:00] VITALS: RESP 16
[2019-02-10] VITALS: RESP 19
[2019-02-10 02:11] VITALS: BP 122/89; PULSE 101; RESP 16; O2SAT 100
[2019-02-10 02:29] VITALS: RESP 18
== END 2019-02-10 02:29 | disposition home or self-care (01) ==
LOC: ED 18:53
PROVIDERS: Emergency Provider Emergency Medicine; Family Provider Family Medicine Geriatric Medicine; PCP Family Medicine Geriatric Medicine
DX: S06.9X1A Unspecified intracranial injury with loss of consciousness of 30 minutes or less, initial encounter (principal); R40.2432 Glasgow coma scale score 3-8, at arrival to emergency department; S13.4XXA Sprain of ligaments of cervical spine, initial encounter; S80.11XA Contusion of right lower leg, initial encounter; S20.219A Contusion of unspecified front wall of thorax, initial encounter; S30.1XXA Contusion of abdominal wall, initial encounter; F10.229 Alcohol dependence with intoxication, unspecified; Y90.8 Blood alcohol level of 240 mg/100 ml or more; W10.9XXA Fall (on) (from) unspecified stairs and steps, initial encounter; Y93.9 Activity, unspecified; Y92.9 Unspecified place or not applicable; Y99.9 Unspecified external cause status; R45.1 Restlessness and agitation
CPT/HCPCS: 70450; 72125; 73590; 80320; 96374; 96375; 99285; A4216; G0480

== ENCOUNTER 2019-02-10 22:45 | Emergency (ER) | payer MEDICAID, SELFPAY ==
[2019-02-09 18:20] VITALS: BMI 38.1
[2019-02-10 22:47] VITALS: BP 160/109; PULSE 126; RESP 20; TEMP 36.6; O2SAT 94; BMI 35.6
[2019-02-10 22:51] VITALS: RESP 20
--- NOTE | 2019-02-10 22:59 | CT_ITS ---
STUDY: CT ABDOMEN AND PELVIS WITH CONTRAST REASON FOR EXAM: Male, 58 years old. Fall.ECCHYMOSIS LT FLANK. Hx of alcoholic cirrhosis with pancreatic cancer. Pt has also had 3 strokes RADIATION DOSAGE (If Supplied By Facility): CTDIvol = ( 21.33 ) mGy, DLP = ( 2015.96 ) mGycm TECHNIQUE: Transaxial images were obtained from the dome of the diaphragm to the symphysis pubis without oral contrast. 100ml IV Isovue 370 was administered. Sagittal and coronal images were reconstructed. Individualized dose optimization techniques were used for this CT. COMPARISON: None. FINDINGS: The visualized lung bases are unremarkable. The visualized portions of the heart are within normal limits. Normal liver. There are multiple gallstones. Normal spleen. Normal pancreas. Normal bilateral adrenal glands. Normal right kidney. Normal left kidney. There is a small hiatal hernia. Normal small intestine. There are multiple colonic diverticula consistent with diverticulosis. The appendix is visualized and appears normal. Normal abdominal aorta. Normal inferior vena cava. Normal retroperitoneum. Normal urinary bladder. There is a small umbilical hernia containing fat. There is also a large right-sided inguinal hernia measures 12 cm containing multiple bowel loops and the cecum. There is nondisplaced fracture of the left 12th rib there is retroperitoneal fat stranding on the left side suggesting contusion. CT/Abdomen/Pelvis W IV Cont ONLY IMPRESSION: There is nondisplaced fracture of the left 12th rib there is retroperitoneal fat stranding on the left side suggesting contusion. Electronically Signed: Jayson Ambriz, at 0:28 EDT Tel , Service support ,
--- NOTE | 2019-02-10 22:59 | RAD_ITS ---
STUDY: X-RAY CHEST REASON FOR EXAM: Male, 58 years old. Fall TECHNIQUE: Frontal view COMPARISON: March 23, 2018 FINDINGS: The lungs are clear and expanded. There is no demonstrated pleural abnormality. Normal size heart. Normal mediastinum and saida. Normal visualized pulmonary arteries. Normal visualized aortic arch and descending thoracic aorta. Mild degenerative changes of the thoracic spine. Normal visualized ribs, clavicles, and shoulders. There is no demonstrated abnormality of the visualized soft tissue structures of the upper abdomen. RAD/Chest 1 View (Portable) IMPRESSION: Normal x-ray examination of the chest. Electronically Signed: Gerry Hooper DO at 23:30 EDT Tel [phone], Service support ,
--- NOTE | 2019-02-10 23:00 | ED.DCSUM_ITS ---
History of Present Illness Chief Complaint: Fall Narrative: Patient is a 58-year-old male with frequent emergency department visits for alcohol intoxication and frequent falls. He was brought in by EMS tonight. History is unclear. He was initially complaining of back pain but now states he does not have any back pain. He told nursing staff that he fell today. He told me that he fell 2 days ago. He was seen in the emergency department yesterday and bruising was noted to his abdomen and left upper quadrant but he was nontender. There was no crepitus. Further history is limited due to the patient's acute alcohol intoxication. Past Medical History - Allergies and Home Meds Allergies/Adverse Reactions: Allergies No Known Allergies Allergy (Verified 02/10/19 22:56) Primary Care Physician: Ernie Lee Chi, MD [Primary Care Provider] - Past Medical History: - - Alcoholism, patient denies medical history Surgical History: noncontributory Smoking Status: Current some day smoker - Family History Maternal Family History: Reports: Heart Disease - valve problem Review of Systems ROS: Unable to Obtain - Review of systems limited due to acute clinically severe alcohol intoxication Musculoskeletal: Reports: Back pain Physical Exam Vital Signs/Narrative: Vital Signs Temp Pulse Resp BP Pulse Ox 02/10/19 22:51 20 H 02/10/19 22:47 97.9 F 126 H 20 H 160/109 H 94 General: No Acute Distress Head: Normocephalic Eyes: EOMI ENT: Moist mucous membranes Neck: Supple Cardiovascular: - - Heart is regular tachycardia, no murmur Respiratory: - - Equal breath sounds bilaterally, no rales rhonchi wheezes Abdomen: Soft, Nontender, Nondistended, - - Left flank and left upper quadrant ecchymosis Back: - - No back ecchymosis/Dunham Pan sign Skin: Normal color Neurological: Alert, - - Clinically intoxicated, slurred speech Psychological: Agitated Diagnostic/Tx/Re-eval Impressions Abdomen/Pelvis CT 02/10/19 22:59 IMPRESSION: There is nondisplaced fracture of the left 12th rib there is retroperitoneal fat stranding on the left side suggesting contusion. Electronically Signed: Jayson Ambriz, at 0:28 EDT Tel , Service support , Chest X-Ray 02/10/19 22:59 IMPRESSION: Normal x-ray examination of the chest. Electronically Signed: Gerry DO Rufus at 23:30 EDT Tel [phone], Service support , 02/10/19 22:59 Abdomen/Pelvis W IV Cont ONLY [CT] Stat Chest 1 View (Portable) [RAD] Stat Laboratory Results 02/10/19 02/10/19 02/10/19 23:10 23:10 23:10 WBC 9.2 RBC 4.32 L Hgb 13.9 Hct 39.4 L MCV 91.2 MCH 32.2 H MCHC 35.3 RDW Std Deviation 44.9 H RDW Coeff of Valerio 13.6 Plt Count 232 MPV 8.8 Immature Gran % (Auto) 0.400 Neut % (Auto) 66.5 Lymph % (Auto) 21.8 Sanders % (Auto) 9.6 Eos % (Auto) 1.0 Baso % (Auto) 0.7 Absolute Neuts (auto) 6.1 Absolute Lymphs (auto) 2.00 Nucleated RBC % 0 PT 13.7 INR 1.1 Sodium 141 Potassium 3.4 L Chloride 104 Carbon Dioxide 22.0 Anion Gap 15 BUN 6 L Creatinine 0.84 Estim Creat Clear Calc 102.09 Est GFR (MDRD) Af Amer 121 Est GFR (MDRD) Non-Af 100 BUN/Creatinine Ratio 7.2 L Glucose 130 H Calcium 8.4 L Total Bilirubin 1.20 H AST 106 H ALT 137 H Alkaline Phosphatase 105 Total Protein 7.4 Albumin 3.6 Globulin 3.8 Albumin/Globulin Ratio 0.9 Ethyl Alcohol 02/10/19 23:10 WBC RBC Hgb Hct MCV MCH MCHC RDW Std Deviation RDW Coeff of Valerio Plt Count MPV Immature Gran % (Auto) Neut % (Auto) Lymph % (Auto) Sanders % (Auto) Eos % (Auto) Baso % (Auto) Absolute Neuts (auto) Absolute Lymphs (auto) Nucleated RBC % PT INR Sodium Potassium Chloride Carbon Dioxide Anion Gap BUN Creatinine Estim Creat Clear Calc Est GFR (MDRD) Af Amer Est GFR (MDRD) Non-Af BUN/Creatinine Ratio Glucose Calcium Total Bilirubin AST ALT Alkaline Phosphatase Total Protein Albumin Globulin Albumin/Globulin Ratio Ethyl Alcohol 426.0 H* - Medical Decision Making Work-up as above notable for alcohol of 426. Hemoglobin is normal. CT of the abdomen and pelvis shows a nondisplaced left rib fracture as well as some retroperitoneal fat stranding suggesting contusion. No focal hematoma. His tachycardia is likely related to his agitation rather than trauma. While sleeping his heart rate improved to 90. I spoke to trauma surgery, Dr. Sarabia at [facility], to discuss this finding. Given that he does not have a focal hematoma he did not feel this necessitated transfer. Given that his blood pressures remained stable his hemoglobin is normal he has no focal hematoma and this is likely just muscular contusion I feel he can be discharged home. He w ill be discharged with a sober ride. He was able to ambulate without assistance. ED Disposition - Plan for ED Patient: Disposition: Home or Assisted Living Diagnosis: Acute alcohol intoxication, Abdominal contusion, Rib fracture Instructions: Rib Fracture (Broken Rib), CONTUSION, Soft Tissue, Alcohol Intoxication Referrals: Ernie Lee Chi, MD [Primary Care Provider] - Additional Instructions: Your CAT scan also showed some bruising towards the back. If you develop abdominal pain or other new or worsening symptoms you need to return to the emergency department immediately for reevaluation. Otherwise you should follow-up as an outpatient.
[2019-02-10] MEDS: 0.9% Normal Saline 1,000 ML 999 ML IV (23:11)
[2019-02-10 23:17] LABS: Absolute Neutrophil Count 6.1 X10^3/uL (2.0-7.7); Basophil# 0.06 X10^3/uL; Basophil% 0.7 % (0-1); Eosinophil# 0.09 X10^3/uL; Hematocrit 39.4 % (40-54); Hemoglobin 13.9 g/dL (13.0-16.5); Lymphocyte % 21.8 % (19-41); Mean Corp Hgb Conc 35.3 g/dL (32-36); Mean Corpuscular Hgb 32.2 pg (27.0-32.0); Mean Corpuscular Volume 91.2 fL (80-94); Mean Platelet Vol. 8.8 fl (6.2-12.0); Monocyte# 0.88 X10^3/uL; Monocyte% 9.6 % (0-10); NRBC Flagged by Analyzer 0 % (0-5); Neutrophil # 6.09 X10^3/uL (2.7-7.7); Neutrophil % 66.5 % (47-70); Platelet Count 232 K/mm3 (150-450); RBC Distribution Width CV 13.6 % (11.6-14.6); RBC Distribution Width SD 44.9 fl (35.1-43.9); Red Blood Count 4.32 M/mm3 (4.6-6.2); White Blood Count 9.2 K/mm3 (4.4-11.0)
[2019-02-10] MEDS: LORazepam 2 MG/ML Syringe IV (23:19)
[2019-02-10 23:26] LABS: International Normalized Ratio 1.1; Prothrombin Time (Protime)PT. 13.7 SECONDS (11.7-14.9)
[2019-02-10 23:37] LABS: ALB/GLOB Ratio 0.9 RATIO (0.9-2.4); AST(SGOT) 106 U/L (15-37); Alanine Aminotransfer ALT/SGPT 137 U/L (16-61); Albumin, Serum 3.6 g/dL (3.2-5.0); Alkaline Phosphatase 105 U/L (45-117); Anion Gap 15 (5-15); BUN 6 mg/dL (7-18); BUN/Creat Ratio 7.2 RATIO (10-20); Calcium,Total 8.4 mg/dL (8.5-10.1); Chloride 104 mmol/L (98-107); Creatinine, Serum 0.84 mg/dL (0.70-1.30); EST Glomerular Filtration Rate 100 mL/min (>60); Est Glom Filt Rate - Afr Amer 121 mL/min (>60); Estimated Creatinine Clearance 102.09 ml/min; Globulin 3.8 g/dL (2.2-4.2); Glucose 130 mg/dL (74-106); Potassium 3.4 mmol/L (3.5-5.1); Protein, Total 7.4 g/dL (6.4-8.2); Sodium Level 141 mmol/L (136-145)
--- NOTE | 2019-02-11 00:02 | ED.RN ---
RECEIVED CRITICAL LAB VALUE FROM LAB. ETOH 426. DR. EDOUARD NOTIFIED.
--- NOTE | 2019-02-11 01:20 | ED.RN ---
THIS NURSE SPOKE WITH PT MOTHER ON THE PHONE. INFORMED PT WILL BE D/C
[2019-02-11 01:38] VITALS: RESP 16
--- NOTE | 2019-02-14 10:40 | CM.ED ---
SOCIAL WORK CALL TO DOMITILA WITH [facility]ULT [facility]. LEFT MESSAGE WITH THIS WORKER'S CALL BACK INFORMATION. AWAITING CALL BACK. GENOVEVA RAZA, SMALL BRAKE FORM OPERATOR, ENGINE REPAIR SUPERVISOR.
--- NOTE | 2019-02-14 13:10 | CM.ED ---
SOCIAL WORK REPORT MADE TO DOMITILA WITH [facility] REGARDING CONCERNS FOR PATIENT'S MOTHER AND PATIENT IN THE HOME. PATIENT IS UNDER THE AGE OF 60, HOWEVER, DOMITILA TO FOLLOW UP WITH PATIENT'S MOTHER. PATIENT WITH HX OF ALCOHOL ABUSE AND FREQUENT ED VISITS. DOMITILA REPORTS WILL FOLLOW UP WITH PATIENT'S MOTHER THIS WEEK. GENOVEVA RAZA, EXTRACT MIXER, FILM DRYING MACHINE OPERATOR.
== END 2019-02-11 01:38 | disposition home or self-care (01) ==
PROVIDERS: Emergency Provider Emergency Medicine; Family Provider Family Medicine Geriatric Medicine; PCP Family Medicine Geriatric Medicine
DX: S22.32XA Fracture of one rib, left side, initial encounter for closed fracture (principal); S30.1XXA Contusion of abdominal wall, initial encounter; W19.XXXA Unspecified fall, initial encounter; Y93.9 Activity, unspecified; Y92.9 Unspecified place or not applicable; Y99.9 Unspecified external cause status; R45.1 Restlessness and agitation; F10.229 Alcohol dependence with intoxication, unspecified; Y90.8 Blood alcohol level of 240 mg/100 ml or more; F17.200 Nicotine dependence, unspecified, uncomplicated
CPT/HCPCS: 71045; 74177; 80053; 80320; 85025; 85610; 96361; 96374; 99285; J7030; Q9967; A4216; G0480

== ENCOUNTER 2019-02-11 21:25 | Emergency (ER) | payer MEDICAID, SELFPAY ==
[2019-02-10 22:47] VITALS: BMI 35.6
[2019-02-11 21:26] VITALS: BP 177/90; PULSE 106; RESP 18; TEMP 36.3; O2SAT 94; BMI 35.2
--- NOTE | 2019-02-11 22:04 | ED.VIS.GEN ---
History of Present Illness Chief Complaint: Edema Informant: Patient Onset: Today Current Severity: Mild Maximum Severity: Mild Narrative: The patient presents to the emergency department due to intoxication. Patient is that she seen her last night and had a rather complete work-up. The patient is well-known to the emergency department. Apparently, he had urinated on his pants. The police actually went to his house changed him and had him ready for bed. Mom was concerned that they did not do anything. The patient was brought here for further evaluation. There is report that he had edema in his legs. In review of the charts, this does appear to be chronic. The patient denies any pain. He denies any recent fall. He states that he just wants to go home. He does admit to drinking alcohol tonight. He does seem more appropriate than in other times I seen him. He is not suicidal or homicidal. Prior similar symptoms: Yes Recent Illness/Hospitalization: Yes Past Medical History - Allergies and Home Meds Allergies/Adverse Reactions: Allergies No Known Allergies Allergy (Verified 02/11/19 21:34) Primary Care Physician: Ernie Lee Chi, MD [Primary Care Provider] - Prior records reviewed: Yes Past Medical History: - Surgical History: noncontributory Lives: With Family Smoking Status: Current every day smoker Alcohol: Heavy - Family History Maternal Family History: Reports: Heart Disease - valve problem Review of Systems General: Denies: Chills, Fever, Sweats Eyes: Denies: Visual changes - bilaterally, Diplopia ENT: Denies: Rhinorrhea, Sore throat Cardiovascular: Denies: Chest pain, Palpitations Respiratory: Denies: Dyspnea, Cough, Dyspnea on exertion Gastrointestinal: Denies: Abdominal pain, Nausea, Vomiting, Diarrhea, Melena, Hematochezia Genitourinary: Denies: Dysuria, Hematuria, Frequency Musculoskeletal: Reports: Swelling. Denies: Myalgias, Arthralgias, Back pain, Extremity Pain Skin: Denies: Rash, Wounds Neurological: Denies: Headache, Weakness, Numbness Physical Exam Vital Signs/Narrative: Vital Signs Temp Pulse Resp BP Pulse Ox 02/11/19 21:26 97.4 F L 106 H 18 177/90 H 94 Inital Vital Signs reviewed: Yes General: Well developed, Unkempt, No Acute Distress Head: Normocephalic, Atraumatic Eyes: EOMI, - - Change of the iris of the right eye which is chronic ENT: Moist mucous membranes, No rhinorrhea Neck: Supple, Nontender Cardiovascular: Regular rate, Regular rhythm, No murmurs Respiratory: No distress, CTA bilaterally, Chest nontender Abdomen: Soft, Nontender, Nondistended, Normal bowel sounds Back: Nontender, Normal Inspection Extremities: No edema, Tenderness - 2+ symmetric lower extremity edema. Normal pulses. No streaking. No cellulitis. Skin: Normal color, No rash Neurological: Alert, Oriented x3, Cranial nerves II-XII grossly intact, Normal Strength, Normal Sensation Psychological: Normal affect, Normal Mood Diagnostic/Tx/Re-eval - Medical Decision Making The patient presents with alcohol intoxication. He has absolutely no complaints. He is awake and alert. He is able to answer my questions appropriately. He is not suicidal or homicidal. He does demonstrate clinical sobriety. He has no new injury or complaints. At this point, I do feel that he is safe for discharge back to home. This is the patient's wish. He will be discharged. Impression 1. Alcohol intoxication 2. Chronic leg edema ED Disposition - Plan for ED Patient: Instructions: ED Peripheral Edema, Bilateral, Alcohol Intoxication Referrals: Ernie Lee Chi, MD [Primary Care Provider] -
--- NOTE | 2019-02-11 22:22 | CM.ED ---
SOCIAL WORK INFORMANT: NURSING REASON FOR REFERRAL: APS/CARE PLAN DISCUSSED CASE WITH NURSING. STAFF ATTEMPTING TO FIND RIDE FOR PATIENT. PATIENT INTOXICATED. PATIENT WITH MULTIPLE ED VISITS. HROQUEENIE PRESENT AND PLANS TO COMPLETE REPORT FOR ADULT PR[facility]ECTIVE SERVICES D/T CONCERNS IN THE HOME WITH PATIENT AND PATIENT'S ELDERLY MOTHER. THIS WORKER TO FOLLOW UP WITH APS WORKERDOMITILA ON WEDNESDAY. GENOVEVA RAZA, JOB PRINTER, VENDING ENTERPRISES SUPERVISOR.
[2019-02-11 22:52] VITALS: PULSE 104; RESP 20; O2SAT 99
== END 2019-02-11 22:53 | disposition home or self-care (01) ==
PROVIDERS: Emergency Provider Emergency Medicine; Family Provider Family Medicine Geriatric Medicine; PCP Family Medicine Geriatric Medicine
DX: R60.0 Localized edema (principal); F10.129 Alcohol abuse with intoxication, unspecified; F17.200 Nicotine dependence, unspecified, uncomplicated
CPT/HCPCS: 99284

== ENCOUNTER 2020-03-29 08:18 | Inpatient (IN) | payer MEDICAID, SELFPAY ==
[2019-08-21 11:41] VITALS: BMI 33.7
[2020-03-29] VITALS (12 sets, daily range): BP systolic 144–168; BP diastolic 72–88; PULSE 67–127; RESP 12–20; TEMP 36.8–36.9; O2SAT 95–98; BMI 30.7; BMI 30.4; BMI 30.5
[2020-03-29 09:03] LABS: Absolute Neutrophil Count 4.7 X10^3/uL (2.0-7.7); Basophil# 0.03 X10^3/uL; Basophil% 0.5 % (0-1); Eosinophil# 0.03 X10^3/uL; Eosinophils% 0.5 % (0-5); Hemoglobin 15.3 g/dL (13.0-16.5); Lymphocyte % 13.1 % (19-41); Mean Corp Hgb Conc 35.6 g/dL (32-36); Mean Corpuscular Hgb 32.8 pg (27.0-32.0); Mean Corpuscular Volume 92.3 fL (80-94); Mean Platelet Vol. 9.3 fl (6.2-12.0); Monocyte% 8.2 % (0-10); NRBC Flagged by Analyzer 0 % (0-5); Neutrophil # 4.74 X10^3/uL (2.7-7.7); Neutrophil % 77.2 % (47-70); Platelet Count 138 K/mm3 (150-450); RBC Distribution Width CV 14.2 % (11.6-14.6); RBC Distribution Width SD 46.7 fl (35.1-43.9); Red Blood Count 4.66 M/mm3 (4.6-6.2); White Blood Count 6.1 K/mm3 (4.4-11.0)
[2020-03-29 09:17] LABS: AST(SGOT) 48 U/L (15-37); Alanine Aminotransfer ALT/SGPT 61 U/L (16-61); Albumin, Serum 3.6 g/dL (3.2-5.0); Alkaline Phosphatase 104 U/L (45-117); Anion Gap 5 (5-15); BUN 9 mg/dL (7-18); Calcium,Total 8.8 mg/dL (8.5-10.1); Chloride 99 mmol/L (98-107); Creatinine, Serum 0.75 mg/dL (0.70-1.30); EST Glomerular Filtration Rate 113 mL/min (>60); Est Glom Filt Rate - Afr Amer 137 mL/min (>60); Estimated Creatinine Clearance 112.95 ml/min; Globulin 3.7 g/dL (2.2-4.2); Glucose 157 mg/dL (74-106); Lipase 218 U/L (73-393); Protein, Total 7.3 g/dL (6.4-8.2); Sodium Level 135 mmol/L (136-145)
[2020-03-29] MEDS: Ondansetron ODT 4 MG Tablet PO (09:43)
[2020-03-29] MEDS: Phenobarbital 32.4 MG Tablet 97.2 MG PO (09:43)
--- NOTE | 2020-03-29 09:47 | ED.DCSUM_ITS ---
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 He is a poor informant. He reports that he drinks daily and that his last drink was 2 days ago. However he then states that this is when he was arrested. Police state that he was actually arrested yesterday. Patient reports it seems like longer than I have. He reports that he typically has 5 beers per day and occasional liquor. Patient does have a history of alcohol withdrawal years ago with seizures. On review of systems patient complains that he is had right inguinal hernia pain for approximately [address] Finnegan. He is supposed to stop smoking and lose some weight before this can be repaired. He denies any nausea, vomiting, or diarrhea. His last bowel movements today. His review of systems is otherwise negative. Physical Examination: Vitals: 98.2, 144/72, 127, 20, 97% of air which not hypoxic General: Well-nourished and well-developed. Diaphoretic. Head: Normocephalic atraumatic. Neck: Supple, no lymphadenopathy. No JVD. Nontender. Cardiovascular: Tachycardic regular rhythm. No murmurs. Respiratory: No respiratory distress. Clear to auscultation bilaterally. Abdominal: Soft, nontender, nondistended, normal bowel sounds. No guarding, rebound, or peritoneal signs. : Normal circumcised male. He does have a large right inguinal hernia with a swollen scrotum. Is moderately tender to palpation. There is no erythema or duskiness to suggest that this is acute. Patient reports that has been like this for 6 months. Back: Nontender. Extremities: Nontender, no edema. Skin: Normal color, no rash. Neurologic: Alert and oriented ?3. Cranial nerves II through XII are intact. Normal strength and sensation. Psych: Normal affect. Test Results: CBC shows platelets of 138, segmented for 77, lymphs at 13. Chem- 7 showed a sodium 135, potassium 3.0, glucose 157. LFTs show total bili of 2.5 and AST of 48. Alcohol level is pending. Emergency Department Course and Treatment: Patient was given phenobarbital, Zofran, and K-Dur. He is resting more comfortably. Treatment Plan: Patient is a poor informant and clinically he is in alcohol withdrawal. He is tachycardic and diaphoretic. He is shaky. He will be discussed with the hospitalist and admitted for further evaluation and treatment. Disposition: Admitted in improved condition. Impression: 1. Alcohol withdrawal. 2. Large right inguinal hernia, chronic. This note was generated with [employer] dictation software. It may contain incorrect words, spelling, and punctuation that were not noted in review of the chart prior to signing ED Disposition - Plan for ED Patient: Referrals: Adalberto Daniel MD [Primary Care Provider] -
[2020-03-29 09:48] LABS: Alcohol, Blood (Medical)-Serum < 3.0 mg/dL
--- NOTE | 2020-03-29 11:16 | CM.ED ---
Addendum entered by Kasey Muse 03/29/20 11:40: Received call back from Mary with [facility]. Per Mary, [facility] has program through the prison and will update Mendoza from [facility] on admission. Updated patient on the above. Officer's report prison will need notified upon discharge. Call to Adult Protective Services, left message for Emma to discuss concerns for patient's 91 year old mother who is home alone and informed by patient is unable to see. Awaiting call back at this time. Original Note: SOCIAL WORK Informant: Dr. Dougherty Reason for Consult: Substance Abuse, patient from prison, under arrest-officers in with patient Met with patient and officers in room. Introduced role and reason for referral. Patient with alcohol withdraw signs/symptoms. Discussed detox. Patient open to talking with [facility]. Patient lives home with 91 year old mother. Patient gave permission for this worker to update his mother. Per officers, patient will need to complete prison sentence upon discharge. While leaving patient's room, patient's mother called into department. This worker spoke with patient's mother and updated on plan of care. Call to [facility], left message for Mary updating on patient's admission. Plan: Admit Jakub Muse, HOT TAR ROOFER HELPER, BUSINESS INSTRUCTOR
--- NOTE | 2020-03-29 12:00 | PCA ---
Officers stopped at desk before leaving and we are to call them when discharged OR if he attempts to leave, Stated that patient is not pink slipped and on medical furlough.
[2020-03-29 13:17] LABS: Magnesium 1.5 mg/dL (1.6-2.6)
[2020-03-29] MEDS: Phenobarbital 32.4 MG Tablet PO ×3 (13:18→21:24)
[2020-03-29] MEDS: 0.9% Normal Saline 1,000 ML 100 ML IV (13:18)
--- NOTE | 2020-03-29 13:36 | CT_ITS ---
STUDY: CT ABDOMEN AND PELVIS WITH CONTRAST REASON FOR EXAM: Male, 59 years old. RT INQUINAL HERNIA, ETOH WITHDRAWL RADIATION DOSAGE (If Supplied By Facility): CTDIvol = ( 14.76 ) mGy, DLP = ( 1684.13 ) mGycm TECHNIQUE: Transaxial images were obtained from the dome of the diaphragm to the symphysis pubis without oral contrast. Oral and amp; IV Gastrografin and amp; 100mL Isovue-300 was administered. Sagittal and coronal images were reconstructed. Individualized dose optimization techniques were used for this CT. COMPARISON: 02/10/2019 FINDINGS: The visualized lung bases are unremarkable. The visualized portions of the heart are within normal limits. Normal liver. There are multiple gallstones. Normal spleen. Normal pancreas. Normal bilateral adrenal glands. Normal right kidney. Normal left kidney. There is a large hiatal hernia composed mostly of the fundus of the stomach. Normal small intestine. Normal colon. There is non-visualization of the appendix. Normal abdominal aorta. Normal inferior vena cava. Normal retroperitoneum. Normal urinary bladder. There is a small umbilical hernia containing fat. Large right inguinal hernia containing multiple loops of ileum, ileocecal valve, cecum, and the proximal ascending colon. No bowel dilatation to suggest bowel obstruction. Normal osseous structures. CT/Abdomen/Pelvis WITH Contrast IMPRESSION: Large right inguinal hernia containing multiple loops of ileum, ileocecal valve, cecum, proximal ascending colon without bowel obstruction. Electronically Signed: Abiodun Jeong MD at 13:05 EDT Tel , Service support ,
[2020-03-29 14:02] LABS: Phosphorus 2.1 mg/dL (2.5-4.9)
--- NOTE | 2020-03-29 14:24 | CM.ED ---
SOCIAL WORK Call to patient's mother to update patient has been admitted and provided mother with room number. Mother requests this worker make it known that Dr. Finnegan has been following with patient. Information given to nursing. Jakub Muse, CARGO WORKER, PLUMBING AND HEATING MECHANIC
--- NOTE | 2020-03-29 15:33 | PCM.HP.STD ---
<Gabino Barker - Last Filed: 03/29/20 15:33> Problem List (1) Alcohol withdrawal Status: Resolved (2) Inguinal hernia Status: Chronic (3) Nicotine abuse Status: Chronic (4) Alcohol withdrawal seizure Status: Resolved History of Present Illness Date of Admission: 03/29/20 Chief Complaint: alcohol withdrawal The patient is a 59 year old M with pmhx of alcoholism, nicotine abuse, and large inguinal hernia who presented to the ER with alcohol withdrawal and request for detox. He states he drinks 5 beers per day and occasional liquor. He last drank 4 days ago. Primary withdrawal symptom at this time is upper extremity tremor. He denies anxiety, nausea, vomiting. He has a hx of withdrawal seizure. His primary concern is that his hernia is getting more painful. He has seen both Dr. Finnegan and Dr. Hernandez in the past for this. He states Dr. Finnegan was planning to operate however wanted him to stop smoking for 2 full weeks before he would. In the past Dr. Murphy note indicates that he suggested the patient have this repaired at a tertiary facility. The patient denies fever/chills. He has no SOB or CP. He was arrested yesterday and may be going to long term after admission. [] Past Medical History Past Medical History (Chronic Problems): Chronic Problems (Last Reviewed 08/21/19 @ 14:[address] Sarahi Barragan MD) Inguinal hernia (Chronic) Nicotine abuse (Chronic) History of DVT (deep vein thrombosis) (Chronic) Radial nerve palsy (Chronic) Alcohol dependence syndrome (Chronic) Medical History: Medical History (Last Reviewed 08/21/19 @ 14:[address] Sarahi Barragan MD) Preop cardiovascular exam (Acute) Z01.810 History of DC (myocardial infarction) (Resolved) I25.2 Atherosclerosis of coronary artery of [place] heart without angina pectoris (Suspected) I25.10 History of DVT (deep vein thrombosis) (Chronic) Z86.718 Incarcerated umbilical hernia (Acute) K42.0 Bilateral inguinal hernia without obstruction or gangrene (Acute) K40.20 Alcohol withdrawal (Resolved) F10.239 Aspiration into airway (Resolved) T17.908A Alcohol withdrawal seizure (Resolved) F10.239, R56.9 Acute and chronic respiratory failure with hypoxia (Resolved) J96.21 Radial nerve palsy (Chronic) G56.30 Alcohol dependence syndrome (Chronic) F10.20 EMMANUEL (acute kidney injury) (Resolved) N17.9 Essential hypertension I10 GERD (gastroesophageal reflux disease) K21.9 Fracture of right humerus with nonunion (Resolved) S42.301K High anion gap metabolic acidosis (Resolved) E87.2 History of CVA (cerebrovascular accident) Z86.73 Lactic acidemia (Resolved) E87.2 Respiratory failure (Resolved) J96.90 Allergies No Known Allergies Allergy (Verified 03/29/20 08:18) Home Medications: Ambulatory Orders Medication Instructions Recorded aspirin 81 mg tablet,delayed 81 mg PO DAILY 07/04/19 release ibuprofen 200 mg tablet 200 mg PO Q6H PRN 07/04/19 lansoprazole 15 mg capsule,delayed 15 mg PO DAILY PRN 07/04/19 release Surgical History: Surgical History (Last Reviewed 08/21/19 @ 14:[address] Sarahi Barragan MD) History of esophagogastroduodenoscopy (EGD) Z98.890 06/01/14 History of tonsillectomy and adenoidectomy Z98.890 Surgical History: no surgical history Psychiatric History: Depression Lives: Alone Smoking Status: Current every day smoker Tobacco Use: Cigars Alcohol: Heavy Drugs: None - *Family History Maternal Family History: Family History (Last Reviewed 03/29/20 @ 15:41 by Gabino TORREZ PA) Mother Colon cancer Heart disease Father Lymphoma Heart disease History Items: Heart Disease - valve problem Review of Systems Constitutional: Denies: Chills, Fever, Weight Change HEENT: Denies: Head Aches, Sinus Congestion, Sinus Drainage Cardiovascular: Denies: Chest Pain, Heaviness, Light Headedness, Palpitations Respiratory: Denies: Cough, Shortness of Breath, Shortness of breath at rest, Sputum production Gastrointestinal: Reports: Abdominal Pain - (hernia). Denies: Diarrhea, Nausea, Vomiting Genitourinary: Denies: Dysuria, Hesitancy, Urgency Musculoskeletal: Denies: Joint Pain, Joint Tenderness Skin: Denies: Rash, Wounds Neurological: Denies: Numbness, Tingling, Focal weakness Psychiatric: Denies: Anxiety, Depression, Homicidal Ideations, Suicidal Ideations Hematologic/ Lymphatic: Denies: Easy Bruising, Easy Bleeding VTE Information - Inpt Only VTE Present on Admission: No VTE Mechan Device Prophylaxis: None VTE Pharm Prophylaxis ordered?: No Reason prophylaxis not ordered:: Procedure Not Indicated - Physical Exam Vitals/I&O's: Vital Signs Temp Pulse Resp BP Pulse Ox 98.3 F 82 12 158/73 H 96 03/29/20 13:30 03/29/20 13:30 03/29/20 13:30 03/29/20 13:30 03/29/20 13:30 Oxygen Delivery Method Room Air Weight: 218 lb 7.649 oz Body Mass Index (BMI) 30.4 Finger Stick Blood Glucose 108 General: Alert, Oriented x3, Cooperative HEENT: Atraumatic, PERRLA, EOMI, Normocephalic Neck: Supple, No JVD, Negative Carotid Bruits Lungs: Clear to auscultation, Normal air movement Cardiovascular: Regular rate, No murmurs Abdomen: Bowel Sounds Present, Soft, Non Tender, Hernia - large inguinal Extremities: No edema, Capillary Refill Less than 3 Seconds Skin: No rashes, No breakdown Musculoskeletal: No Tenderness to Palpation of Joints or Extremities Neurological: Cranial nerves II-XII grossly intact Psych/Mental Status: Normal Affect, Appropriate, Alert and oriented to time, place, person, mood and affect Laboratory Results 03/29/20 08:50: WBC 6.1, RBC 4.66, Hgb 15.3, Hct 43.0, MCV 92.3, MCH 32.8 H, MCHC 35.6, RDW Std Deviation 46.7 H, RDW Coeff of Valerio 14.2, Plt Count 138 L, MPV 9.3, Immature Gran % (Auto) 0.500, Neut % (Auto) 77.2 H, Lymph % (Auto) 13.1 L, Kemper % (Auto) 8.2, Eos % (Auto) 0.5, Baso % (Auto) 0.5, Absolute Neuts (auto) 4.7, Absolute Lymphs (auto) 0.80 L, Nucleated RBC % 0 03/29/20 08:50: Sodium 135 L, Potassium 3.0 L, Chloride 99, Carbon Dioxide 31.0, Anion Gap 5, BUN 9, Creatinine 0.75, Estim Creat Clear Calc 112.95, Est GFR (MDRD) Af Amer 137, Est GFR (MDRD) Non-Af 113, BUN/Creatinine Ratio 12.0, Glucose 157 H, Calcium 8.8, Total Bilirubin 2.50 H, AST 48 H, ALT 61, Alkaline Phosphatase 104, Total Protein 7.3, Albumin 3.6, Globulin 3.7, Albumin/Globulin Ratio 1.0, Lipase 218 03/29/20 08:50: Ethyl Alcohol < 3.0 03/29/20 08:50: Magnesium 1.5 L 03/29/20 08:50: Phosphorus 2.1 L Current Medications Acetaminophen (Acetaminophen 325 Mg Tablet) 650 mg PO Q6H PRN PRN PRN Reason: Pain Score 1-10/Temp > 100.7 F Al Hydroxide/Mg Hydroxide (Mag Hydrox/Al Hydrox/Simeth 30 Ml Udc) 30 ml PO Q6H PRN PRN PRN Reason: Gastric Burning Bisacodyl (Bisacodyl 10 Mg Suppository) 10 mg RECTAL DAILY PRN PRN Reason: Constipation Dicyclomine HCl (Dicyclomine 10 Mg Capsule) 20 mg PO Q6H PRN PRN PRN Reason: abdominal discomfort Folic Acid (Folic Acid 1 Mg Tablet) 1 mg PO DAILY@0800 JULIAN Gabapentin (Gabapentin 300 Mg Capsule) 300 mg PO Q8H PRN PRN PRN Reason: moderate to severe anxiety Hydroxyzine Pamoate (Hydroxyzine Sabrina 25 Mg Capsule) 50 mg PO Q4H PRN PRN PRN Reason: mild anxiety Sodium Chloride () 1,000 mls @ 100 mls/hr IV .Q10H JULIAN Last Admin: 03/29/20 13:18 Dose: 100 mls/hr Documented by: Magnesium Sulfate 2 gm/ Sodium (Chloride) 104 mls @ 52 mls/hr IV X1 ONE Stop: 03/29/20 15:36 Ibuprofen (Ibuprofen 600 Mg Tablet) 600 mg PO Q8H PRN PRN PRN Reason: Pain Score 1-10 Loperamide HCl (Loperamide 2 Mg Capsule) 2 mg PO Q4H PRN PRN PRN Reason: LOOSE STOOLS Nicotine (Nicotine 21 Mg Patch) 21 mg TRANSDERM. DAILY [facility] Nicotine (Nicotine 21 Mg Patch) 21 mg TRANSDERM. DAILY [facility] Nicotine Polacrilex (Nicotine Polacrilex 4 Mg Gum) 4 mg PO Q2H PRN PRN PRN Reason: Nicotine Craving Nutritional Formula (Lactose Free) (Ensure Enlive 120 Ml Liquid) 120 ml PO 4X/DAY JULIAN Last Admin: 03/29/20 13:18 Dose: 120 ml Documented by: Ondansetron HCl (Ondansetron 8 Mg Tablet) 8 mg PO Q8H PRN PRN PRN Reason: NAUSEA Phenobarbital (Phenobarbital 32.4 Mg Tablet) 97.2 mg PO Q4H JULIAN; Taper Stop: 04/02/20 20:59 Last Admin: 03/29/20 13:18 Dose: 97.2 mg Documented by: Senna (Senna Tablet) 2 tablet PO QHS PRN PRN Reason: Constipation Sodium Chloride (0.9% Saline Lock 10 Ml Syringe) 10 - 40 ml IV UD PRN PRN Reason: SALINE FLUSH Thiamine HCl (Thiamine Hydrochloride 100 Mg Tablet) 100 mg PO DAILYCM JULIAN Trazodone HCl (Trazodone 100 Mg Tablet) 100 mg PO QHS PRN PRN Reason: INSOMNIA Assessment/Plan All Active Problems (Last Reviewed 08/21/19 @ 14:[address] Sarahi Barragan MD) Preop cardiovascular exam (Acute) History of DC (myocardial infarction) (Resolved) Incarcerated umbilical hernia (Acute) Bilateral inguinal hernia without obstruction or gangrene (Acute) Alcohol withdrawal (Resolved) Aspiration into airway (Resolved) Alcohol withdrawal seizure (Resolved) Acute and chronic respiratory failure with hypoxia (Resolved) EMMANUEL (acute kidney injury) (Resolved) Fracture of right humerus with nonunion (Resolved) High anion gap metabolic acidosis (Resolved) Lactic acidemia (Resolved) Respiratory failure (Resolved) 1. Alcoholism with withdrawal - start phenobarb, CIWA protocol, seizure precautions. Hx withdrawal seizures. Replace electrolytes. tBili ad AST elevated. Mild thrombocytopenia. Lipase negative 2. Large inguinal hernia - gen surgery consulted. CT abd/pelvis with oral/iv contrast pending. 3. Nicotine abuse - smokes cigars daily. Refuses patch DVT ppx: SCDs This patient was seen by Gabino Barker PA-C under the supervision of Dr. Leung. <Mila Leung - Last Filed: 03/29/20 16:39> History of Present Illness The patient is a 59 year old M [] Past Medical History Medical History: Medical History (Last Reviewed 08/21/19 @ 14:[address] Sarahi Barragan MD) Preop cardiovascular exam (Acute) Z01.810 History of DC (myocardial infarction) (Resolved) I25.2 Atherosclerosis of coronary artery of [place] heart without angina pectoris (Suspected) I25.10 History of DVT (deep vein thrombosis) (Chronic) Z86.718 Incarcerated umbilical hernia (Acute) K42.0 Bilateral inguinal hernia without obstruction or gangrene (Acute) K40.20 Alcohol withdrawal (Resolved) F10.239 Aspiration into airway (Resolved) T17.908A Alcohol withdrawal seizure (Resolved) F10.239, R56.9 Acute and chronic respiratory failure with hypoxia (Resolved) J96.21 Radial nerve palsy (Chronic) G56.30 Alcohol dependence syndrome (Chronic) F10.20 EMMANUEL (acute kidney injury) (Resolved) N17.9 Essential hypertension I10 GERD (gastroesophageal reflux disease) K21.9 Fracture of right humerus with nonunion (Resolved) S42.301K High anion gap metabolic acidosis (Resolved) E87.2 History of CVA (cerebrovascular accident) Z86.73 Lactic acidemia (Resolved) E87.2 Respiratory failure (Resolved) J96.90 Allergies No Known Allergies Allergy (Verified 03/29/20 08:18) Surgical History: Surgical History (Last Reviewed 08/21/19 @ 14:[address] Sarahi Barragan MD) History of esophagogastroduodenoscopy (EGD) Z98.890 1219/ History of tonsillectomy and adenoidectomy Z98.890 - *Family History Maternal Family History: Family History (Last Reviewed 03/29/20 @ 15:41 by Gabino TORREZ, PA) Mother Colon cancer Heart disease Father Lymphoma Heart disease - Physical Exam Vitals/I&O's: Vital Signs Temp Pulse Resp BP Pulse Ox 98.3 F 82 12 158/73 H 96 03/29/20 13:30 03/29/20 13:30 03/29/20 13:30 03/29/20 13:30 03/29/20 13:30 Oxygen Delivery Method Room Air Weight: 99.1 kg Body Mass Index (BMI) 30.4 Finger Stick Blood Glucose 108 Laboratory Results 03/29/20 08:50: WBC 6.1, RBC 4.66, Hgb 15.3, Hct 43.0, MCV 92.3, MCH 32.8 H, MCHC 35.6, RDW Std Deviation 46.7 H, RDW Coeff of Valerio 14.2, Plt Count 138 L, MPV 9.3, Immature Gran % (Auto) 0.500, Neut % (Auto) 77.2 H, Lymph % (Auto) 13.1 L, Kemper % (Auto) 8.2, Eos % (Auto) 0.5, Baso % (Auto) 0.5, Absolute Neuts (auto) 4.7, Absolute Lymphs (auto) 0.80 L, Nucleated RBC % 0 03/29/20 08:50: Sodium 135 L, Potassium 3.0 L, Chloride 99, Carbon Dioxide 31.0, Anion Gap 5, BUN 9, Creatinine 0.75, Estim Creat Clear Calc 112.95, Est GFR (MDRD) Af Amer 137, Est GFR (MDRD) Non-Af 113, BUN/Creatinine Ratio 12.0, Glucose 157 H, Calcium 8.8, Total Bilirubin 2.50 H, AST 48 H, ALT 61, Alkaline Phosphatase 104, Total Protein 7.3, Albumin 3.6, Globulin 3.7, Albumin/Globulin Ratio 1.0, Lipase 218 03/29/20 08:50: Ethyl Alcohol < 3.0 03/29/20 08:50: Magnesium 1.5 L 03/29/20 08:50: Phosphorus 2.1 L Current Medications Acetaminophen (Acetaminophen 325 Mg Tablet) 650 mg PO Q6H PRN PRN PRN Reason: Pain Score 1-10/Temp > 100.7 F Al Hydroxide/Mg Hydroxide (Mag Hydrox/Al Hydrox/Simeth 30 Ml Udc) 30 ml PO Q6H PRN PRN PRN Reason: Gastric Burning Bisacodyl (Bisacodyl 10 Mg Suppository) 10 mg RECTAL DAILY PRN PRN Reason: Constipation Dicyclomine HCl (Dicyclomine 10 Mg Capsule) 20 mg PO Q6H PRN PRN PRN Reason: abdominal discomfort Folic Acid (Folic Acid 1 Mg Tablet) 1 mg PO DAILY@0800 JULIAN Gabapentin (Gabapentin 300 Mg Capsule) 300 mg PO Q8H PRN PRN PRN Reason: moderate to severe anxiety Hydroxyzine Pamoate (Hydroxyzine Sabrina 25 Mg Capsule) 50 mg PO Q4H PRN PRN PRN Reason: mild anxiety Sodium Chloride () 1,000 mls @ 100 mls/hr IV .Q10H JULIAN Last Admin: 03/29/20 13:18 Dose: 100 mls/hr Documented by: Ibuprofen (Ibuprofen 600 Mg Tablet) 600 mg PO Q8H PRN PRN PRN Reason: Pain Score 1-10 Loperamide HCl (Loperamide 2 Mg Capsule) 2 mg PO Q4H PRN PRN PRN Reason: LOOSE STOOLS Nicotine (Nicotine 21 Mg Patch) 21 mg TRANSDERM. DAILY JULIAN Nicotine (Nicotine 21 Mg Patch) 21 mg TRANSDERM. DAILY JULIAN Nicotine Polacrilex (Nicotine Polacrilex 4 Mg Gum) 4 mg PO Q2H PRN PRN PRN Reason: Nicotine Craving Nutritional Formula (Lactose Free) (Ensure Enlive 120 Ml Liquid) 120 ml PO 4X/DAY JULIAN Last Admin: 03/29/20 13:18 Dose: 120 ml Documented by: Ondansetron HCl (Ondansetron 8 Mg Tablet) 8 mg PO Q8H PRN PRN PRN Reason: NAUSEA Phenobarbital (Phenobarbital 32.4 Mg Tablet) 97.2 mg PO Q4H JULIAN; Taper Stop: 04/02/20 20:59 Last Admin: 03/29/20 13:18 Dose: 97.2 mg Documented by: Potassium Phos/Sodium Phos (Na Biphos/Potassium Phosphate Packet) 1 packet PO TID JULIAN Stop: 03/30/20 06:01 Senna (Senna Tablet) 2 tablet PO QHS PRN PRN Reason: Constipation Sodium Chloride (0.9% Saline Lock 10 Ml Syringe) 10 - 40 ml IV UD PRN PRN Reason: SALINE FLUSH Thiamine HCl (Thiamine Hydrochloride 100 Mg Tablet) 100 mg PO DAILYCM JULIAN Trazodone HCl (Trazodone 100 Mg Tablet) 100 mg PO QHS PRN PRN Reason: INSOMNIA Assessment/Plan This patient was seen in conjunction with LORE Samano. I have independently interviewed and examined the patient and reviewed pertinent historical, laboratory, and other data. Please refer to LORE Samano note for his patient's presentation, findings, and recommendations. I have reviewed and his note and concur with his documentation 59-year-old male with past medical history of CVA, CAD, hypertension, GERD, history of chronic inguinal hernia, chronic alcohol use disorder who comes in with tremors. Patient drinks about 5 beers every day. He was arrested yesterday driving under influence. He has been in long term. He started exhibiting withdrawal symptoms and was brought to the ED. patient had history of alcohol withdrawal seizures, delirium tremens requiring intubation. His vitals showed tachycardia of 127. Lab work showed magnesium 1.5. Physical Exam: Gen: Looks in some discomfort, not pale, not jaundiced CVS:HS I +II, regular, no murmurs RESP: Diminished at lung bases GI: BS present and normal, soft, nontender, no palpable organs EXT:No edema ASSESSMENT: 1. Acute alcohol withdrawal 2. Hypomagnesemia 3. Large inguinal hernia 4. Nicotine dependence Plan: Continue with nicotine replacement Continue to monitor on alcohol withdrawal protocol Replace magnesium General surgery consult for hernia Inpatient E&M: [id number] Init Hosp L3
--- NOTE | 2020-03-29 15:49 | CM.ED ---
SOCIAL WORK Received call back from Emma with Adult [employer] Services. Per Emma, patient and patient's mother known to [facility]PS. Emma states [facility] will follow up with patient's mother on Wednesday. DAVID Duarte, LOCKSTITCH SLEEVE SETTER
[2020-03-29] MEDS: LORazepam 2 MG/ML Syringe 1 MG IV (16:21)
--- NOTE | 2020-03-29 16:37 | EKG12_ITS ---
Test Reason : Blood Pressure : / mmHG Vent. Rate : 088 BPM Atrial Rate : 088 BPM P-R Int : 174 ms QRS Dur : 086 ms QT Int : 394 ms P-R-T Axes : 045 005 030 degrees QTc Int : 476 ms Normal sinus rhythm Normal ECG Confirmed by CARI FLOYD, MATEO ([id number]), editorial cartoonist RADHA KIM ([id number]) on 04/02/2020 8:26:34 AM Referred By: Confirmed By:MATEO ALCALA MD
--- NOTE | 2020-03-29 16:55 | NURSING ---
Pt returned from CT. Unable to complete CT due to anxiety.
--- NOTE | 2020-03-29 16:57 | PCM.CONS.GEN ---
Problem List (1) Inguinal hernia Status: Chronic Qualifiers: Obstruction and gangrene presence: without obstruction or gangrene Laterality: unilateral Recurrence: non-recurrent Qualified Code(s): K40.90 - Unilateral inguinal hernia, without obstruction or gangrene, not specified as recurrent Reason for Consult Date of Consultation: 03/29/20 History of Present Illness: he patient is a 59 year old M with pmhx of alcoholism, nicotine abuse, and large inguinal hernia who presented to the ER with alcohol withdrawal and request for detox. He states he drinks 5 beers per day and occasional liquor. He last drank 4 days ago. Primary withdrawal symptom at this time is upper extremity tremor. He denies anxiety, nausea, vomiting. He has a hx of withdrawal seizure. His primary concern is that his hernia is getting more painful. He has seen both Dr. Finnegan and Dr. Hernandez in the past for this. He states Dr. Finnegan was planning to operate however wanted him to stop smoking for 2 full weeks before he would. In the past Dr. Murphy note indicates that he suggested the patient have this repaired at a tertiary facility. The patient denies fever/chills. He has no SOB or CP. [facility] was arrested yesterday and [facility]. He was unable to get a CAT scan of his abdomen and pelvis so that we could compare his most recent CAT scan of his pelvis to today. Patient states that his hernia has not significantly changed since he saw Dr. Jensen 2 weeks ago. Past Medical History Past Medical History (Chronic Problems): Chronic Problems (Last Reviewed 08/21/19 @ 14:[address] Sarahi Barragan MD) Inguinal hernia (Chronic) Nicotine abuse (Chronic) History of DVT (deep vein thrombosis) (Chronic) Radial nerve palsy (Chronic) Alcohol dependence syndrome (Chronic) Medical History: Medical History (Last Reviewed 03/29/20 @ 16:[address] Loy Holden MD) Preop cardiovascular exam (Acute) Z01.810 History of LA (myocardial infarction) (Resolved) I25.2 Atherosclerosis of coronary artery of [place] heart without angina pectoris (Suspected) I25.10 History of DVT (deep vein thrombosis) (Chronic) Z86.718 Incarcerated umbilical hernia (Acute) K42.0 Bilateral inguinal hernia without obstruction or gangrene (Acute) K40.20 Alcohol withdrawal (Resolved) F10.239 Aspiration into airway (Resolved) T17.908A Alcohol withdrawal seizure (Resolved) F10.239, R56.9 Acute and chronic respiratory failure with hypoxia (Resolved) J96.21 Radial nerve palsy (Chronic) G56.30 Alcohol dependence syndrome (Chronic) F10.20 EMMANUEL (acute kidney injury) (Resolved) N17.9 Essential hypertension I10 GERD (gastroesophageal reflux disease) K21.9 Fracture of right humerus with nonunion (Resolved) S42.301K High anion gap metabolic acidosis (Resolved) E87.2 History of CVA (cerebrovascular accident) Z86.73 Lactic acidemia (Resolved) E87.2 Respiratory failure (Resolved) J96.90 Allergies No Known Allergies Allergy (Verified 03/29/20 08:18) Home Medications: Ambulatory Orders Medication Instructions Recorded aspirin 81 mg tablet,delayed 81 mg PO DAILY 07/04/19 release ibuprofen 200 mg tablet 200 mg PO Q6H PRN 07/04/19 lansoprazole 15 mg capsule,delayed 15 mg PO DAILY PRN 07/04/19 release Surgical History: Surgical History (Last Reviewed 03/29/20 @ 16:[address] Loy Holden MD) History of esophagogastroduodenoscopy (EGD) Z98.890 06/01/14 History of tonsillectomy and adenoidectomy Z98.890 Surgical History: no surgical history Psychiatric History: Depression Lives: Alone Smoking Status: Current every day smoker Tobacco Use: Cigars Alcohol: Heavy Drugs: None - *Family History Maternal Family History: Family History (Last Reviewed 03/29/20 @ 15:41 by Gabino TORREZ, PA) Mother Colon cancer Heart disease Father Lymphoma Heart disease History Items: Heart Disease - valve problem Review of Systems Constitutional: Denies: Chills, Fever, Weight Change Cardiovascular: Denies: Chest Pain, Chest Pressure, Chest Tightness, Palpitations Respiratory: Denies: Cough, Hemoptysis, Shortness of breath at rest, Shortness of breath upon exertion, Wheezing Gastrointestinal: Denies: Abdominal Pain, Constipation, Diarrhea, Hematemesis, Nausea, Melena, Vomiting - Physical Exam Vitals/I&O's: Vital Signs Temp Pulse Resp BP Pulse Ox 98.3 F 82 12 158/73 H 96 03/29/20 13:30 03/29/20 13:30 03/29/20 13:30 03/29/20 13:30 03/29/20 13:30 Oxygen Delivery Method Room Air Weight: 218 lb 7.649 oz Body Mass Index (BMI) 30.4 Finger Stick Blood Glucose 108 General: Alert, Oriented x3 Lungs: Clear to auscultation Cardiovascular: Regular rate, Regular Rhythm, No murmurs Abdomen: Soft, Non Tender, Hernia - Patient has an extremely large right inguinal hernia. It is soft it is nontender to touch. Laboratory Results 03/29/20 08:50: WBC 6.1, RBC 4.66, Hgb 15.3, Hct 43.0, MCV 92.3, MCH 32.8 H, MCHC 35.6, RDW Std Deviation 46.7 H, RDW Coeff of Valerio 14.2, Plt Count 138 L, MPV 9.3, Immature Gran % (Auto) 0.500, Neut % (Auto) 77.2 H, Lymph % (Auto) 13.1 L, [place] % (Auto) 8.2, Eos % (Auto) 0.5, Baso % (Auto) 0.5, Absolute Neuts (auto) 4.7, Absolute Lymphs (auto) 0.80 L, Nucleated RBC % 0 03/29/20 08:50: Sodium 135 L, Potassium 3.0 L, Chloride 99, Carbon Dioxide 31.0, Anion Gap 5, BUN 9, Creatinine 0.75, Estim Creat Clear Calc 112.95, Est GFR (MDRD) Af Amer 137, Est GFR (MDRD) Non-Af 113, BUN/Creatinine Ratio 12.0, Glucose 157 H, Calcium 8.8, Total Bilirubin 2.50 H, AST 48 H, ALT 61, Alkaline Phosphatase 104, Total Protein 7.3, Albumin 3.6, Globulin 3.7, Albumin/Globulin Ratio 1.0, Lipase 218 03/29/20 08:50: Ethyl Alcohol < 3.0 03/29/20 08:50: Magnesium 1.5 L 03/29/20 08:50: Phosphorus 2.1 L Current Medications Acetaminophen (Acetaminophen 325 Mg Tablet) 650 mg PO Q6H PRN PRN PRN Reason: Pain Score 1-10/Temp > 100.7 F Al Hydroxide/Mg Hydroxide (Mag Hydrox/Al Hydrox/Simeth 30 Ml Udc) 30 ml PO Q6H PRN PRN PRN Reason: Gastric Burning Bisacodyl (Bisacodyl 10 Mg Suppository) 10 mg RECTAL DAILY PRN PRN Reason: Constipation Dicyclomine HCl (Dicyclomine 10 Mg Capsule) 20 mg PO Q6H PRN PRN PRN Reason: abdominal discomfort Folic Acid (Folic Acid 1 Mg Tablet) 1 mg PO DAILY@0800 [facility] Gabapentin (Gabapentin 300 Mg Capsule) 300 mg PO Q8H PRN PRN PRN Reason: moderate to severe anxiety Hydroxyzine Pamoate (Hydroxyzine Sabrina 25 Mg Capsule) 50 mg PO Q4H PRN PRN PRN Reason: mild anxiety Sodium Chloride () 1,000 mls @ 100 mls/hr IV .Q10H [facility] Last Admin: 03/29/20 13:18 Dose: 100 mls/hr Documented by: Ibuprofen (Ibuprofen 600 Mg Tablet) 600 mg PO Q8H PRN PRN PRN Reason: Pain Score 1-10 Loperamide HCl (Loperamide 2 Mg Capsule) 2 mg PO Q4H PRN PRN PRN Reason: LOOSE STOOLS Nicotine (Nicotine 21 Mg Patch) 21 mg TRANSDERM. DAILY [facility] Nicotine (Nicotine 21 Mg Patch) 21 mg TRANSDERM. DAILY [facility] Nicotine Polacrilex (Nicotine Polacrilex 4 Mg Gum) 4 mg PO Q2H PRN PRN PRN Reason: Nicotine Craving Nutritional Formula (Lactose Free) (Ensure Enlive 120 Ml Liquid) 120 ml PO 4X/DAY [facility] Last Admin: 03/29/20 13:18 Dose: 120 ml Documented by: Ondansetron HCl (Ondansetron 8 Mg Tablet) 8 mg PO Q8H PRN PRN PRN Reason: NAUSEA Phenobarbital (Phenobarbital 32.4 Mg Tablet) 97.2 mg PO Q4H [facility]; Taper Stop: 04/02/20 20:59 Last Admin: 03/29/20 13:18 Dose: 97.2 mg Documented by: Potassium Phos/Sodium Phos (Na Biphos/Potassium Phosphate Packet) 1 packet PO TID [facility] Stop: 03/30/20 06:01 Senna (Senna Tablet) 2 tablet PO QHS PRN PRN Reason: Constipation Sodium Chloride (0.9% Saline Lock 10 Ml Syringe) 10 - 40 ml IV UD PRN PRN Reason: SALINE FLUSH Thiamine HCl (Thiamine Hydrochloride 100 Mg Tablet) 100 mg PO DAILYCM [facility] Trazodone HCl (Trazodone 100 Mg Tablet) 100 mg PO QHS PRN PRN Reason: INSOMNIA Assessment/Plan All Active Problems (Last Reviewed 08/21/19 @ 14:[address] Sarahi Barragan MD) Preop cardiovascular exam (Acute) History of LA (myocardial infarction) (Resolved) Incarcerated umbilical hernia (Acute) Bilateral inguinal hernia without obstruction or gangrene (Acute) Alcohol withdrawal (Resolved) Aspiration into airway (Resolved) Alcohol withdrawal seizure (Resolved) Acute and chronic respiratory failure with hypoxia (Resolved) EMMANUEL (acute kidney injury) (Resolved) Fracture of right humerus with nonunion (Resolved) High anion gap metabolic acidosis (Resolved) Lactic acidemia (Resolved) Respiratory failure (Resolved) At this point I do not think that this is an acute incarceration. On his exam his hernia is roughly about the same size as it was when I and looked at his previous CAT scans of his pelvis that he has had. His abdomen is soft he is not throwing up he shows no signs of bowel obstruction. Given the overall size of it it would be highly unlikely that he would have an incarceration given how large the defect is. I do not think he needs an acute surgery. And I think once he goes through his DTs [facility] and then follow back up with Dr. Jensen to have surgery. Hopefully he will quit smoking in [facility] and Dr. Floyd will be able to do his surgery. Office Visits / Consults: [id number] IP Consult L3
[2020-03-29] MEDS: Na Biphos/Potassium Phosphate PACKET 1 PACKET PO ×2 (17:00→21:24)
--- NOTE | 2020-03-29 18:41 | NURSING ---
Pt returned to room from MRI>
[2020-03-29] MEDS: traZODone 100 MG Tablet PO (23:43)
[2020-03-30] VITALS (8 sets, daily range): BP systolic 117–141; BP diastolic 59–81; PULSE 80–115; RESP 16–18; TEMP 36.7–37.1; O2SAT 95–99
[2020-03-30] MEDS: Phenobarbital 32.4 MG Tablet PO ×6 (01:10→21:05)
[2020-03-30] MEDS: hydrOXYzine PAM 25 MG Capsule 50 MG PO ×4 (01:16→21:05)
[2020-03-30] MEDS: 0.9% Normal Saline 1,000 ML 100 ML IV (01:16)
[2020-03-30] MEDS: Ibuprofen 600 MG Tablet PO ×2 (02:24→14:23)
[2020-03-30] MEDS: Gabapentin 300 MG Capsule PO ×2 (05:28→21:05)
[2020-03-30] MEDS: Na Biphos/Potassium Phosphate PACKET 1 PACKET PO ×3 (05:28→21:05)
[2020-03-30 06:15] LABS: Absolute Lymphocyte Count 1.21 X10^3/uL (0.83-4.51); Absolute Neutrophil Count 2.5 X10^3/uL (2.0-7.7); Basophil# 0.02 X10^3/uL; Basophil% 0.5 % (0-1); Eosinophil# 0.09 X10^3/uL; Eosinophils% 2.1 % (0-5); Hematocrit 39.4 % (40-54); Hemoglobin 13.6 g/dL (13.0-16.5); Lymphocyte # 1.21 X10^3/ul (4.0); Lymphocyte % 28.5 % (19-41); Mean Corp Hgb Conc 34.5 g/dL (32-36); Mean Corpuscular Hgb 32.7 pg (27.0-32.0); Mean Corpuscular Volume 94.7 fL (80-94); Mean Platelet Vol. 9.4 fl (6.2-12.0); Monocyte# 0.43 X10^3/uL; Monocyte% 10.1 % (0-10); NRBC Flagged by Analyzer 0 % (0-5); Neutrophil # 2.49 X10^3/uL (2.7-7.7); Neutrophil % 58.6 % (47-70); Platelet Count 102 K/mm3 (150-450); RBC Distribution Width CV 14.4 % (11.6-14.6); RBC Distribution Width SD 49.2 fl (35.1-43.9); Red Blood Count 4.16 M/mm3 (4.6-6.2); White Blood Count 4.3 K/mm3 (4.4-11.0)
[2020-03-30 06:43] LABS: AST(SGOT) 26 U/L (15-37); Alanine Aminotransfer ALT/SGPT 44 U/L (16-61); Alkaline Phosphatase 84 U/L (45-117); Anion Gap 7 (5-15); BUN 9 mg/dL (7-18); BUN/Creat Ratio 13.6 RATIO (10-20); Chloride 99 mmol/L (98-107); Creatinine, Serum 0.66 mg/dL (0.70-1.30); EST Glomerular Filtration Rate 131 mL/min (>60); Est Glom Filt Rate - Afr Amer 158 mL/min (>60); Estimated Creatinine Clearance 128.35 ml/min; Globulin 3.1 g/dL (2.2-4.2); Glucose 84 mg/dL (74-106); Potassium 3.3 mmol/L (3.5-5.1); Protein, Total 6.1 g/dL (6.4-8.2); Sodium Level 136 mmol/L (136-145)
--- NOTE | 2020-03-30 08:42 | PN.SURG_ITS ---
Subjective: Patient is sleeping Objective: Abdomen is soft hernia is soft no tenderness or peritoneal signs are identified - Physical Exam Vitals/I&O's: Vital Signs Temp Pulse Resp BP Pulse Ox 98.2 F 88 18 141/81 H 98 03/30/20 04:39 03/30/20 07:00 03/30/20 04:39 03/30/20 04:39 03/30/20 04:39 Oxygen Delivery Method Room Air Weight: 218 lb 7.649 oz Body Mass Index (BMI) 30.4 Finger Stick Blood Glucose 108 Intake and Output for Last 24 Hours 03/28/20 03/29/20 03/30/20 23:59 23:59 23:59 Intake Total 2003 240 / 240 Balance 2003 240 / 240 Laboratory Results 03/29/20 08:50: WBC 6.1, RBC 4.66, Hgb 15.3, Hct 43.0, MCV 92.3, MCH 32.8 H, MCHC 35.6, RDW Std Deviation 46.7 H, RDW Coeff of Valerio 14.2, Plt Count 138 L, MPV 9.3, Immature Gran % (Auto) 0.500, Neut % (Auto) 77.2 H, Lymph % (Auto) 13.1 L, [place] % (Auto) 8.2, Eos % (Auto) 0.5, Baso % (Auto) 0.5, Absolute Neuts (auto) 4.7, Absolute Lymphs (auto) 0.80 L, Nucleated RBC % 0 03/29/20 08:50: Sodium 135 L, Potassium 3.0 L, Chloride 99, Carbon Dioxide 31.0, Anion Gap 5, BUN 9, Creatinine 0.75, Estim Creat Clear Calc 112.95, Est GFR (MDRD) Af Amer 137, Est GFR (MDRD) Non-Af 113, BUN/Creatinine Ratio 12.0, Glucose 157 H, Calcium 8.8, Total Bilirubin 2.50 H, AST 48 H, ALT 61, Alkaline Phosphatase 104, Total Protein 7.3, Albumin 3.6, Globulin 3.7, Albumin/Globulin Ratio 1.0, Lipase 218 03/29/20 08:50: Ethyl Alcohol < 3.0 03/29/20 08:50: Magnesium 1.5 L 03/29/20 08:50: Phosphorus 2.1 L 03/30/20 05:50: WBC 4.3 L, RBC 4.16 L, Hgb 13.6, Hct 39.4 L, MCV 94.7 H, MCH 32.7 H, MCHC 34.5, RDW Std Deviation 49.2 H, RDW Coeff of Valerio 14.4, Plt Count 102 L, MPV 9.4, Immature Gran % (Auto) 0.200, Neut % (Auto) 58.6, Lymph % (Auto) 28.5, [place] % (Auto) 10.1 H, Eos % (Auto) 2.1, Baso % (Auto) 0.5, Absolute Neuts (auto) 2.5, Absolute Lymphs (auto) 1.21, Nucleated RBC % 0 03/30/20 06:00: Sodium 136, Potassium 3.3 L, Chloride 99, Carbon Dioxide 30.0, Anion Gap 7, BUN 9, Creatinine 0.66 L, Estim Creat Clear Calc 128.35, Est GFR (MDRD) Af Amer 158, Est GFR (MDRD) Non-Af 131, BUN/Creatinine Ratio 13.6, Glucose 84, Calcium 8.0 L, Total Bilirubin 1.80 H, AST 26, ALT 44, Alkaline Phosphatase 84, Total Protein 6.1 L, Albumin 3.0 L, Globulin 3.1, Albumin/Globulin Ratio 1.0 Current Medications Acetaminophen (Acetaminophen 325 Mg Tablet) 650 mg PO Q6H PRN PRN PRN Reason: Pain Score 1-10/Temp > 100.7 F Al Hydroxide/Mg Hydroxide (Mag Hydrox/Al Hydrox/Simeth 30 Ml Udc) 30 ml PO Q6H PRN PRN PRN Reason: Gastric Burning Bisacodyl (Bisacodyl 10 Mg Suppository) 10 mg RECTAL DAILY PRN PRN Reason: Constipation Dicyclomine HCl (Dicyclomine 10 Mg Capsule) 20 mg PO Q6H PRN PRN PRN Reason: abdominal discomfort Folic Acid (Folic Acid 1 Mg Tablet) 1 mg PO DAILY@0800 [facility] Gabapentin (Gabapentin 300 Mg Capsule) 300 mg PO Q8H PRN PRN PRN Reason: moderate to severe anxiety Last Admin: 03/30/20 05:28 Dose: 300 mg Documented by: Hydroxyzine Pamoate (Hydroxyzine Sabrina 25 Mg Capsule) 50 mg PO Q4H PRN PRN PRN Reason: mild anxiety Last Admin: 03/30/20 01:16 Dose: 50 mg Documented by: Sodium Chloride () 1,000 mls @ 100 mls/hr IV .Q10H [facility] Last Admin: 03/30/20 01:16 Dose: 100 mls/hr Documented by: Ibuprofen (Ibuprofen 600 Mg Tablet) 600 mg PO Q8H PRN PRN PRN Reason: Pain Score 1-10 Last Admin: 03/30/20 02:24 Dose: 600 mg Documented by: Loperamide HCl (Loperamide 2 Mg Capsule) 2 mg PO Q4H PRN PRN PRN Reason: LOOSE STOOLS Nicotine (Nicotine 21 Mg Patch) 21 mg TRANSDERM. DAILY [facility] Nicotine (Nicotine 21 Mg Patch) 21 mg TRANSDERM. DAILY [facility] Nicotine Polacrilex (Nicotine Polacrilex 4 Mg Gum) 4 mg PO Q2H PRN PRN PRN Reason: Nicotine Craving Nutritional Formula (Lactose Free) (Ensure Enlive 120 Ml Liquid) 120 ml PO 4X/DAY [facility] Last Admin: 03/29/20 21:24 Dose: Not Given Documented by: Ondansetron HCl (Ondansetron 8 Mg Tablet) 8 mg PO Q8H PRN PRN PRN Reason: NAUSEA Phenobarbital (Phenobarbital 32.4 Mg Tablet) 97.2 mg PO Q4H [facility]; Taper Stop: 04/02/20 20:59 Last Admin: 03/30/20 04:41 Dose: 97.2 mg Documented by: Senna (Senna Tablet) 2 tablet PO QHS PRN PRN Reason: Constipation Sodium Chloride (0.9% Saline Lock 10 Ml Syringe) 10 - 40 ml IV UD PRN PRN Reason: SALINE FLUSH Thiamine HCl (Thiamine Hydrochloride 100 Mg Tablet) 100 mg PO DAILYCM [facility] Trazodone HCl (Trazodone 100 Mg Tablet) 100 mg PO QHS PRN PRN Reason: INSOMNIA Last Admin: 03/29/20 23:43 Dose: 100 mg Documented by: Medical Necessity - Tobacco Use Smoking Status: Current every day smoker Tobacco Use: Cigars Assessment/Plan All Active Problems (Last Reviewed 03/29/20 @ 16:[address] Loy Holden MD) Preop cardiovascular exam (Acute) History of [place] (myocardial infarction) (Resolved) Incarcerated umbilical hernia (Acute) Bilateral inguinal hernia without obstruction or gangrene (Acute) Alcohol withdrawal (Resolved) Aspiration into airway (Resolved) Alcohol withdrawal seizure (Resolved) Acute and chronic respiratory failure with hypoxia (Resolved) EMMANUEL (acute kidney injury) (Resolved) Fracture of right humerus with nonunion (Resolved) High anion gap metabolic acidosis (Resolved) Lactic acidemia (Resolved) Respiratory failure (Resolved) We will sign off now
[2020-03-30] MEDS: Thiamine Hydrochloride 100 MG Tablet PO (09:16)
[2020-03-30] MEDS: Folic Acid 1 MG Tablet PO (09:17)
[2020-03-30] MEDS: Dicyclomine 10 MG Capsule 20 MG PO ×2 (09:20→18:54)
--- NOTE | 2020-03-30 10:27 | PCM.PN.HOSP ---
Reason for Visit: Follow-up on acute alcohol withdrawal/inguinal hernia Subjective: Patient was seen and examined. No acute events overnight. CT of the abdomen and pelvis is pending per General surgery. Denies any abdominal discomfort. Objective: Physical exam: General: Alert, Oriented x3, Cooperative HEENT: Atraumatic, PERRLA, EOMI, Normocephalic Neck: Supple, No JVD, Negative Carotid Bruits Lungs: Clear to auscultation, Normal air movement Cardiovascular: Regular rate, No murmurs Abdomen: Bowel Sounds Present, Soft, Non Tender, Hernia - large inguinal Extremities: No edema, Capillary Refill Less than 3 Seconds Skin: No rashes, No breakdown Musculoskeletal: No Tenderness to Palpation of Joints or Extremities Neurological: Cranial nerves II-XII grossly intact Psych/Mental Status: Normal Affect, Appropriate, Alert and oriented to time, place, person, mood and affect Vitals/I&O's: Vital Signs Temp Pulse Resp BP Pulse Ox 97.6 F L 92 18 130/89 H 100 03/30/20 08:40 03/30/20 08:40 03/30/20 08:40 03/30/20 08:40 03/30/20 08:40 Oxygen Delivery Method Room Air Weight: 99.1 kg Body Mass Index (BMI) 30.4 Finger Stick Blood Glucose 108 Intake and Output for Last 24 Hours 03/28/20 03/29/20 03/30/20 23:59 23:59 23:59 Intake Total 2003 240 / 240 Balance 2003 240 / 240 Laboratory Results 03/29/20 08:50: Magnesium 1.5 L 03/29/20 08:50: Phosphorus 2.1 L 03/30/20 05:50: WBC 4.3 L, RBC 4.16 L, Hgb 13.6, Hct 39.4 L, MCV 94.7 H, MCH 32.7 H, MCHC 34.5, RDW Std Deviation 49.2 H, RDW Coeff of Valerio 14.4, Plt Count 102 L, MPV 9.4, Immature Gran % (Auto) 0.200, Neut % (Auto) 58.6, Lymph % (Auto) 28.5, [place] % (Auto) 10.1 H, Eos % (Auto) 2.1, Baso % (Auto) 0.5, Absolute Neuts (auto) 2.5, Absolute Lymphs (auto) 1.21, Nucleated RBC % 0 03/30/20 06:00: Sodium 136, Potassium 3.3 L, Chloride 99, Carbon Dioxide 30.0, Anion Gap 7, BUN 9, Creatinine 0.66 L, Estim Creat Clear Calc 128.35, Est GFR (MDRD) Af Amer 158, Est GFR (MDRD) Non-Af 131, BUN/Creatinine Ratio 13.6, Glucose 84, Calcium 8.0 L, Total Bilirubin 1.80 H, AST 26, ALT 44, Alkaline Phosphatase 84, Total Protein 6.1 L, Albumin 3.0 L, Globulin 3.1, Albumin/Globulin Ratio 1.0 Current Medications Acetaminophen (Acetaminophen 325 Mg Tablet) 650 mg PO Q6H PRN PRN PRN Reason: Pain Score 1-10/Temp > 100.7 F Al Hydroxide/Mg Hydroxide (Mag Hydrox/Al Hydrox/Simeth 30 Ml Udc) 30 ml PO Q6H PRN PRN PRN Reason: Gastric Burning Bisacodyl (Bisacodyl 10 Mg Suppository) 10 mg RECTAL DAILY PRN PRN Reason: Constipation Dicyclomine HCl (Dicyclomine 10 Mg Capsule) 20 mg PO Q6H PRN PRN PRN Reason: abdominal discomfort Last Admin: 03/30/20 09:20 Dose: 20 mg Documented by: Folic Acid (Folic Acid 1 Mg Tablet) 1 mg PO DAILY@0800 [facility] Last Admin: 03/30/20 09:17 Dose: 1 mg Documented by: Gabapentin (Gabapentin 300 Mg Capsule) 300 mg PO Q8H PRN PRN PRN Reason: moderate to severe anxiety Last Admin: 03/30/20 05:28 Dose: 300 mg Documented by: Hydroxyzine Pamoate (Hydroxyzine Sabrina 25 Mg Capsule) 50 mg PO Q4H PRN PRN PRN Reason: mild anxiety Last Admin: 03/30/20 01:16 Dose: 50 mg Documented by: Ibuprofen (Ibuprofen 600 Mg Tablet) 600 mg PO Q8H PRN PRN PRN Reason: Pain Score 1-10 Last Admin: 03/30/20 02:24 Dose: 600 mg Documented by: Loperamide HCl (Loperamide 2 Mg Capsule) 2 mg PO Q4H PRN PRN PRN Reason: LOOSE STOOLS Nicotine (Nicotine 21 Mg Patch) 21 mg TRANSDERM. DAILY [facility] Last Admin: 03/30/20 09:18 Dose: Not Given Documented by: Nicotine (Nicotine 21 Mg Patch) 21 mg TRANSDERM. DAILY [facility] Last Admin: 03/30/20 09:19 Dose: Not Given Documented by: Nicotine Polacrilex (Nicotine Polacrilex 4 Mg Gum) 4 mg PO Q2H PRN PRN PRN Reason: Nicotine Craving Nutritional Formula (Lactose Free) (Ensure Enlive 120 Ml Liquid) 120 ml PO 4X/DAY [facility] Last Admin: 03/30/20 09:17 Dose: 120 ml Documented by: Ondansetron HCl (Ondansetron 8 Mg Tablet) 8 mg PO Q8H PRN PRN PRN Reason: NAUSEA Phenobarbital (Phenobarbital 32.4 Mg Tablet) 97.2 mg PO Q4H [facility]; Taper Stop: 04/02/20 20:59 Last Admin: 03/30/20 09:17 Dose: 97.2 mg Documented by: Senna (Senna Tablet) 2 tablet PO QHS PRN PRN Reason: Constipation Sodium Chloride (0.9% Saline Lock 10 Ml Syringe) 10 - 40 ml IV UD PRN PRN Reason: SALINE FLUSH Thiamine HCl (Thiamine Hydrochloride 100 Mg Tablet) 100 mg PO DAILYCM [facility] Last Admin: 03/30/20 09:16 Dose: 100 mg Documented by: Trazodone HCl (Trazodone 100 Mg Tablet) 100 mg PO QHS PRN PRN Reason: INSOMNIA Last Admin: 03/29/20 23:43 Dose: 100 mg Documented by: STROKE Vital Signs/Narrative: Vital Signs Temp Pulse Resp BP Pulse Ox 03/30/20 08:40 97.6 F L 92 18 130/89 H 100 03/30/20 07:00 88 Medical Necessity - Tobacco Use Smoking Status: Current every day smoker Tobacco Use: Cigars Assessment/Plan All Active Problems (Last Reviewed 03/29/20 @ 16:[address] Loy Holden MD) Preop cardiovascular exam (Acute) History of [place] (myocardial infarction) (Resolved) Incarcerated umbilical hernia (Acute) Bilateral inguinal hernia without obstruction or gangrene (Acute) Alcohol withdrawal (Resolved) Aspiration into airway (Resolved) Alcohol withdrawal seizure (Resolved) Acute and chronic respiratory failure with hypoxia (Resolved) EMMANUEL (acute kidney injury) (Resolved) Fracture of right humerus with nonunion (Resolved) High anion gap metabolic acidosis (Resolved) Lactic acidemia (Resolved) Respiratory failure (Resolved) 1. Acute alcohol withdrawal, last CIWA score was 3, continue on phenobarb taper started Patient continues to require medication and monitoring for withdrawal based on regular assessment and remains appropriate for ASAM level 4.0 Continue on folic acid, multivitamin, thiamine and the alcohol withdrawal protocol 2. Hypomagnesemia, replaced, recheck in a.m. 3. Hypokalemia, potassium is 3.3, replace, recheck in a.m. 4. Hypophosphatemia, phosphorus is 2.1, replaced, recheck in a.m. 5. Large inguinal hernia, CT of the abdomen and pelvis is pending, general surgery consulted 6. Nicotine dependence, continue on replacement 7. DVT PPx - Lovenox VT Inpatient E&M: 87151 Subs Hosp L2
[2020-03-30 15:36] LABS: Magnesium 2.1 mg/dL (1.6-2.6)
[2020-03-30 16:42] LABS: Phosphorus 2.1 mg/dL (2.5-4.9)
[2020-03-30] MEDS: 0.9% Saline Lock 10 ML Syringe IV (21:05)
[2020-03-30 23:35] LABS: Amphetamine Urine VISTA NEGATIVE (<1000 ng/mL); Barbiturate Urine VISTA POSITIVE (< 200 ng/mL); Benzodiazepine Urine VISTA POSITIVE (< 200 ng/mL); Cocaine Urine VISTA NEGATIVE (< 300 ng/mL); Ecstacy Urine VISTA NEGATIVE (< 500 ng/mL); Methadone Urine VISTA NEGATIVE (< 300 ng/mL); PCP Urine VISTA NEGATIVE (< 25 ng/mL); THC Urine VISTA POSITIVE (< 50 ng/mL); Vista UDS pH Range 8
[2020-03-31] VITALS (12 sets, daily range): BP systolic 112–140; BP diastolic 67–104; PULSE 80–100; RESP 16–20; TEMP 36.6–37.3; O2SAT 96–100
[2020-03-31] MEDS: traZODone 100 MG Tablet PO ×2 (01:16→22:08)
[2020-03-31] MEDS: Phenobarbital 32.4 MG Tablet PO ×6 (01:16→20:58)
--- NOTE | 2020-03-31 05:00 | ED.RN ---
patient looking for personal belongings. Ed staff has no belongings in care. Spoke with [facility]. They still have custody of his belongings at this time. Plan for patient to be discharged to retirement after medical treatment
[2020-03-31] MEDS: Folic Acid 1 MG Tablet PO (08:04)
[2020-03-31] MEDS: Thiamine Hydrochloride 100 MG Tablet PO (08:04)
[2020-03-31] MEDS: Gabapentin 300 MG Capsule PO ×2 (08:06→21:05)
[2020-03-31 08:42] LABS: Albumin, Serum 3.1 g/dL (3.2-5.0); BUN 6 mg/dL (7-18); BUN/Creat Ratio 8.2 RATIO (10-20); Calcium,Total 8.2 mg/dL (8.5-10.1); Chloride 98 mmol/L (98-107); Creatinine, Serum 0.74 mg/dL (0.70-1.30); EST Glomerular Filtration Rate 115 mL/min (>60); Est Glom Filt Rate - Afr Amer 140 mL/min (>60); Estimated Creatinine Clearance 114.48 ml/min; Glucose 106 mg/dL (74-106); Magnesium 1.7 mg/dL (1.6-2.6); Phosphorus 1.7 mg/dL (2.5-4.9); Potassium 3.5 mmol/L (3.5-5.1); Sodium Level 132 mmol/L (136-145)
[2020-03-31] MEDS: Na Biphos/Potassium Phosphate PACKET 1 PACKET PO ×4 (09:52→21:10)
[2020-03-31] MEDS: LORazepam 2 MG/ML Syringe IV (11:04)
[2020-03-31] MEDS: 0.9% Saline Lock 10 ML Syringe IV ×3 (11:05→15:27)
--- NOTE | 2020-03-31 11:44 | PCM.PN.HOSP ---
<Gabino Barker - Last Filed: 03/31/20 11:44> Reason for Visit: alcohol withdrawal Subjective: pt notes improvement in his tremulousness. He however has been somewhat agitated. frequently out of bed, out of his room pacing the hallway, being generally disruptive in the hallway speaking loudly and interrupting the nursing staff. He did however agree to have the CT today. He has no fever/chills, SOB, cough, nausea, vomiting, or diarrhea. Pt reports to change in his hernia during the course of admission. Vitals/I&O's: Vital Signs Temp Pulse Resp BP Pulse Ox 98 F 96 20 H 140/79 H 96 03/31/20 07:55 03/31/20 09:40 03/31/20 09:40 03/31/20 07:55 03/31/20 09:40 Oxygen Delivery Method Room Air Weight: 218 lb 7.649 oz Body Mass Index (BMI) 30.4 Finger Stick Blood Glucose 108 Intake and Output for Last 24 Hours 03/29/20 03/30/20 03/31/20 23:59 23:59 23:59 Intake Total 2003 2320 / 2320 Output Total 400 / 400 Balance 2003 1920 / 192 General: Alert, Oriented x3, Cooperative HEENT: Atraumatic, PERRLA, EOMI, Normocephalic Neck: Supple, No JVD, Negative Carotid Bruits Lungs: Clear to auscultation, Normal air movement Cardiovascular: Regular rate, No murmurs Abdomen: Bowel Sounds Present, Soft, Non Tender, - - large inguinal hernia with no change from prior Extremities: No edema, Capillary Refill Less than 3 Seconds Skin: No rashes, No breakdown Musculoskeletal: No Tenderness to Palpation of Joints or Extremities Neurological: Cranial nerves II-XII grossly intact Psych/Mental Status: Normal Affect, Appropriate, Alert and oriented to time, place, person, mood and affect Laboratory Results 03/30/20 06:12: Magnesium 2.1 03/30/20 06:12: Phosphorus 2.1 L 03/30/20 23:08: Urine Opiates Screen NEGATIVE, Urine Methadone Screen NEGATIVE, Ur Barbiturates Screen POSITIVE H, Ur Phencyclidine Scrn NEGATIVE, Ur Amphetamines Screen NEGATIVE, U Methamphetamin-MDMA NEGATIVE, U Benzodiazepines Scrn POSITIVE H, Urine Cocaine Screen NEGATIVE, U Cannabinoids Screen POSITIVE H, Ur Drug Screen Comment 03/31/20 08:22: Sodium 132 L, Potassium 3.5, Chloride 98, Carbon Dioxide 29.0, BUN 6 L, Creatinine 0.74, Estim Creat Clear Calc 114.48, Est GFR (MDRD) Af Amer 140, Est GFR (MDRD) Non-Af 115, BUN/Creatinine Ratio 8.2 L, Glucose 106, Calcium 8.2 L, Phosphorus 1.7 L, Magnesium 1.7, Albumin 3.1 L Current Medications Acetaminophen (Acetaminophen 325 Mg Tablet) 650 mg PO Q6H PRN PRN PRN Reason: Pain Score 1-10/Temp > 100.7 F Al Hydroxide/Mg Hydroxide (Mag Hydrox/Al Hydrox/Simeth 30 Ml Udc) 30 ml PO Q6H PRN PRN PRN Reason: Gastric Burning Bisacodyl (Bisacodyl 10 Mg Suppository) 10 mg RECTAL DAILY PRN PRN Reason: Constipation Dicyclomine HCl (Dicyclomine 10 Mg Capsule) 20 mg PO Q6H PRN PRN PRN Reason: abdominal discomfort Last Admin: 03/30/20 18:54 Dose: 20 mg Documented by: Enoxaparin Sodium (Enoxaparin 40 Mg/0.4 Ml Syringe) 40 mg SC DAILY [facility] Last Admin: 03/31/20 09:36 Dose: Not Given Documented by: Folic Acid (Folic Acid 1 Mg Tablet) 1 mg PO DAILY@0800 [facility] Last Admin: 03/31/20 08:04 Dose: 1 mg Documented by: Gabapentin (Gabapentin 300 Mg Capsule) 300 mg PO Q8H PRN PRN PRN Reason: moderate to severe anxiety Last Admin: 03/31/20 08:06 Dose: 300 mg Documented by: Hydroxyzine Pamoate (Hydroxyzine Sabrina 25 Mg Capsule) 50 mg PO Q4H PRN PRN PRN Reason: mild anxiety Last Admin: 03/30/20 21:05 Dose: 50 mg Documented by: Ibuprofen (Ibuprofen 600 Mg Tablet) 600 mg PO Q8H PRN PRN PRN Reason: Pain Score 1-10 Last Admin: 03/30/20 14:23 Dose: 600 mg Documented by: Loperamide HCl (Loperamide 2 Mg Capsule) 2 mg PO Q4H PRN PRN PRN Reason: LOOSE STOOLS Nicotine (Nicotine 21 Mg Patch) 21 mg TRANSDERM. DAILY [facility] Last Admin: 03/31/20 09:36 Dose: Not Given Documented by: Nicotine (Nicotine 21 Mg Patch) 21 mg TRANSDERM. DAILY [facility] Last Admin: 03/31/20 09:37 Dose: Not Given Documented by: Nicotine Polacrilex (Nicotine Polacrilex 4 Mg Gum) 4 mg PO Q2H PRN PRN PRN Reason: Nicotine Craving Nutritional Formula (Lactose Free) (Ensure Enlive 120 Ml Liquid) 120 ml PO 4X/DAY [facility] Last Admin: 03/31/20 09:36 Dose: Not Given Documented by: Ondansetron HCl (Ondansetron 8 Mg Tablet) 8 mg PO Q8H PRN PRN PRN Reason: NAUSEA Phenobarbital (Phenobarbital 32.4 Mg Tablet) 64.8 mg PO Q4H [facility]; Taper Stop: 04/02/20 20:59 Last Admin: 03/31/20 09:14 Dose: 64.8 mg Documented by: Potassium Phos/Sodium Phos (Na Biphos/Potassium Phosphate Packet) 1 packet PO 4X/DAY [facility] Stop: 03/31/20 14:01 Last Admin: 03/31/20 09:52 Dose: 1 packet Documented by: Senna (Senna Tablet) 2 tablet PO QHS PRN PRN Reason: Constipation Sodium Chloride (0.9% Saline Lock 10 Ml Syringe) 10 - 40 ml IV UD PRN PRN Reason: SALINE FLUSH Last Admin: 03/31/20 11:05 Dose: 10 ml Documented by: Thiamine HCl ([facility] Hydrochloride 100 Mg Tablet) [facility] Last Admin: 03/31/20 08:04 Dose: 100 mg Documented by: Trazodone HCl (Trazodone 100 Mg Tablet) 100 mg PO QHS PRN PRN Reason: INSOMNIA Last Admin: 03/31/20 01:16 Dose: 100 mg Documented by: STROKE Vital Signs/Narrative: Vital Signs Temp Pulse Resp BP Pulse Ox 03/31/20 09:40 96 20 H 96 03/31/20 07:55 98 F 96 20 H 140/79 H 98 Medical Necessity - Tobacco Use Smoking Status: Current every day smoker Tobacco Use: Cigars Assessment/Plan All Active Problems (Last Reviewed 03/29/20 @ 16:[address] Loy Holden MD) Preop cardiovascular exam (Acute) History of DE (myocardial infarction) (Resolved) Incarcerated umbilical hernia (Acute) Bilateral inguinal hernia without obstruction or gangrene (Acute) Alcohol withdrawal (Resolved) Aspiration into airway (Resolved) Alcohol withdrawal seizure (Resolved) Acute and chronic respiratory failure with hypoxia (Resolved) EMMANUEL (acute kidney injury) (Resolved) Fracture of right humerus with nonunion (Resolved) High anion gap metabolic acidosis (Resolved) Lactic acidemia (Resolved) Respiratory failure (Resolved) 1. Alcoholism with withdrawal - continue phenobarb taper. symptoms are well improved. 2. Large inguinal hernia - gen surgery consulted - no plans for intervention at this time. CT abd/pelvis with oral/iv contrast pending. 3. Nicotine abuse - smokes cigars daily. Refuses patch DVT ppx: SCDs This patient was seen by Gabino Barker PA-C under the supervision of Dr. Leung. <Mila Leung - Last Filed: 03/31/20 14:33> Vitals/I&O's: Vital Signs Temp Pulse Resp BP Pulse Ox 98 F 100 20 H 112/80 98 03/31/20 12:00 03/31/20 13:46 03/31/20 13:46 03/31/20 12:00 03/31/20 12:00 Oxygen Delivery Method Room Air Weight: 99.1 kg Body Mass Index (BMI) 30.4 Finger Stick Blood Glucose 108 Intake and Output for Last 24 Hours 03/29/20 03/30/20 03/31/20 23:59 23:59 23:59 Intake Total 2003 2320 / 2320 480 / 480 Output Total 400 / 400 Balance 2003 1920 / 1920 480 / 480 Laboratory Results 03/30/20 06:12: Magnesium 2.1 03/30/20 06:12: Phosphorus 2.1 L 03/30/20 23:08: Urine Opiates Screen NEGATIVE, Urine Methadone Screen NEGATIVE, Ur Barbiturates Screen POSITIVE H, Ur Phencyclidine Scrn NEGATIVE, Ur Amphetamines Screen NEGATIVE, U Methamphetamin-MDMA NEGATIVE, U Benzodiazepines Scrn POSITIVE H, Urine Cocaine Screen NEGATIVE, U Cannabinoids Screen POSITIVE H, Ur Drug Screen Comment 03/31/20 08:22: Sodium 132 L, Potassium 3.5, Chloride 98, Carbon Dioxide 29.0, BUN 6 L, Creatinine 0.74, Estim Creat Clear Calc 114.48, Est GFR (MDRD) Af Amer 140, Est GFR (MDRD) Non-Af 115, BUN/Creatinine Ratio 8.2 L, Glucose 106, Calcium 8.2 L, Phosphorus 1.7 L, Magnesium 1.7, Albumin 3.1 L Current Medications Acetaminophen (Acetaminophen 325 Mg Tablet) 650 mg PO Q6H PRN PRN PRN Reason: Pain Score 1-10/Temp > 100.7 F Al Hydroxide/Mg Hydroxide (Mag Hydrox/Al Hydrox/Simeth 30 Ml Udc) 30 ml PO Q6H PRN PRN PRN Reason: Gastric Burning Bisacodyl (Bisacodyl 10 Mg Suppository) 10 mg RECTAL DAILY PRN PRN Reason: Constipation Dicyclomine HCl (Dicyclomine 10 Mg Capsule) 20 mg PO Q6H PRN PRN PRN Reason: abdominal discomfort Last Admin: 03/30/20 18:54 Dose: 20 mg Documented by: Enoxaparin Sodium (Enoxaparin 40 Mg/0.4 Ml Syringe) 40 mg SC DAILY [facility] Last Admin: 03/31/20 09:36 Dose: Not Given Documented by: Folic Acid (Folic Acid 1 Mg Tablet) 1 mg PO DAILY@0800 [facility] Last Admin: 03/31/20 08:04 Dose: 1 mg Documented by: Gabapentin (Gabapentin 300 Mg Capsule) 300 mg PO Q8H PRN PRN PRN Reason: moderate to severe anxiety Last Admin: 03/31/20 08:06 Dose: 300 mg Documented by: Haloperidol Lactate (Haloperidol Lactate 5 Mg/Ml Vial) 1 mg IV Q4H PRN PRN PRN Reason: AGITATION Last Admin: 03/31/20 14:15 Dose: 1 mg Documented by: Hydroxyzine Pamoate (Hydroxyzine Sabrina 25 Mg Capsule) 50 mg PO Q4H PRN PRN PRN Reason: mild anxiety Last Admin: 03/30/20 21:05 Dose: 50 mg Documented by: Ibuprofen (Ibuprofen 600 Mg Tablet) 600 mg PO Q8H PRN PRN PRN Reason: Pain Score 1-10 Last Admin: 03/30/20 14:23 Dose: 600 mg Documented by: Loperamide HCl (Loperamide 2 Mg Capsule) 2 mg PO Q4H PRN PRN PRN Reason: LOOSE STOOLS Nicotine (Nicotine 21 Mg Patch) 21 mg TRANSDERM. DAILY [facility] Last Admin: 03/31/20 09:36 Dose: Not Given Documented by: Nicotine (Nicotine 21 Mg Patch) 21 mg TRANSDERM. DAILY [facility] Last Admin: 03/31/20 09:37 Dose: Not Given Documented by: Nicotine Polacrilex (Nicotine Polacrilex 4 Mg Gum) 4 mg PO Q2H PRN PRN PRN Reason: Nicotine Craving Nutritional Formula (Lactose Free) (Ensure Enlive 120 Ml Liquid) 120 ml PO 4X/DAY [facility] Last Admin: 03/31/20 13:44 Dose: Not Given Documented by: Ondansetron HCl (Ondansetron 8 Mg Tablet) 8 mg PO Q8H PRN PRN PRN Reason: NAUSEA Phenobarbital (Phenobarbital 32.4 Mg Tablet) 64.8 mg PO Q4H [facility]; Taper Stop: 04/02/20 20:59 Last Admin: 03/31/20 13:41 Dose: 64.8 mg Documented by: Senna (Senna Tablet) 2 tablet PO QHS PRN PRN Reason: Constipation Sodium Chloride (0.9% Saline Lock 10 Ml Syringe) 10 - 40 ml IV UD PRN PRN Reason: SALINE FLUSH Last Admin: 03/31/20 14:16 Dose: 10 ml Documented by: Thiamine HCl (Thiamine Hydrochloride 100 Mg Tablet) 100 mg PO DAILYCM [facility] Last Admin: 03/31/20 08:04 Dose: 100 mg Documented by: Trazodone HCl (Trazodone 100 Mg Tablet) 100 mg PO QHS PRN PRN Reason: INSOMNIA Last Admin: 03/31/20 01:16 Dose: 100 mg Documented by: STROKE Vital Signs/Narrative: Vital Signs Temp Pulse Resp BP Pulse Ox 03/31/20 13:46 100 20 H 03/31/20 12:00 98 F 100 20 H 112/80 98 Assessment/Plan This patient was seen in conjunction with LORE Samano. I have independently interviewed and examined the patient and reviewed pertinent historical, laboratory, and other data. Please refer to LORE Samano note for his patient's presentation, findings, and recommendations. I have reviewed and his note and concur with his documentation Patient was seen and examined. He has been agitated and walking around. Still unable to get a CT scan of the abdomen and pelvis. He was premedicated. CT of the abdomen and pelvis showed large inguinal hernia with multiple loops of small bowel, ileocecal valve, cecum, and proximal ascending colon. No signs of obstruction Physical Exam: Gen: Looks in some discomfort, not pale, not jaundiced CVS:HS I +II, regular, no murmurs RESP: Diminished at lung bases GI: BS present and normal, soft, nontender, no palpable organs EXT:No edema ASSESSMENT: 1. Acute alcohol withdrawal 2. Hypomagnesemia/hypophosphatemia 3. Large inguinal hernia, containing his small intestine lines and right side of the colon. 4. Nicotine dependence Plan: Continue with nicotine replacement Continue to monitor on alcohol withdrawal protocol Replace magnesium and phosphorus Recheck magnesium, phosphorus in a.m. Inpatient E&M: 21917 Subs Hosp L2
--- NOTE | 2020-03-31 13:34 | NURSING ---
1315 pt agitated in room and out in hallway. Jamee REDDY aware. security and house police called. they encouraged pt to stay in room and follow staff directions. Jael Duckworth RN
[2020-03-31] MEDS: Haloperidol Lactate 5 MG/ML Vial 1 MG IV (14:15)
--- NOTE | 2020-03-31 14:20 | NURSING ---
1415 pt agitated in room, encouraged pt to stay in room. PRN med given see JULIET Duckworth RN
[2020-03-31] MEDS: Magnesium Sulfate 4gm/100mL 4 GM/100 ML IV.SOLN. IV (15:26)
--- NOTE | 2020-03-31 20:35 | NURSING ---
Pt. awoke from sleeping in chair while MAUREEN Cerrato was in room. Pt. exited room, stating he wanted to Get out of this crazy place. Pt. was instructed to stay in room but continued to argue with 2 nurses and one [employer]. Pt. refused to go into room and continued to walk the hallways while cursing and saying he was going to leave. Security was paged and a few minutes later, [facility] superintendent police, Anna, was paged to PCU. Pt. was back in room when both security and police arrived, along with myself (production helper) and pt. nurse, Blossom. Pt. felt that medication he was given last night or today made him have crazy dreams and felt like he was in [place]. Talked with patient at length and he eventually settled down and cooperated with medical care and remaining in room. Will continue to monitor.
[2020-03-31] MEDS: hydrOXYzine PAM 25 MG Capsule 50 MG PO (22:07)
[2020-04-01] VITALS (10 sets, daily range): BP systolic 97–126; BP diastolic 52–70; PULSE 74–105; RESP 16–20; TEMP 36.4–37.1; O2SAT 95–100
[2020-04-01] MEDS: Phenobarbital 32.4 MG Tablet PO ×4 (04:00→20:21)
--- NOTE | 2020-04-01 05:00 | EKG12_ITS ---
Test Reason : AM EKG Blood Pressure : / mmHG Vent. Rate : 089 BPM Atrial Rate : 089 BPM P-R Int : 174 ms QRS Dur : 090 ms QT Int : 390 ms P-R-T Axes : 062 037 041 degrees QTc Int : 474 ms Normal sinus rhythm Normal ECG When compared with ECG of 29-MAR-2020 16:59, MANUAL COMPARISON REQUIRED, DATA IS UNCONFIRMED Confirmed by KATLYN FLOYD, NATHALIE ([id number]), subeditor RADHA KIM ([id number]) on 04/11/2020 9:43:58 A M Referred By: DR RAHMAN Confirmed By:DARRELL POTTS MD
[2020-04-01 05:55] LABS: ALB/GLOB Ratio 0.8 RATIO (0.9-2.4); AST(SGOT) 8 U/L (15-37); Alanine Aminotransfer ALT/SGPT 31 U/L (16-61); Albumin, Serum 2.7 g/dL (3.2-5.0); Alkaline Phosphatase 73 U/L (45-117); Anion Gap 7 (5-15); BUN 6 mg/dL (7-18); BUN/Creat Ratio 10.1 RATIO (10-20); Chloride 101 mmol/L (98-107); EST Glomerular Filtration Rate 147 mL/min (>60); Est Glom Filt Rate - Afr Amer 178 mL/min (>60); Estimated Creatinine Clearance 139.44 ml/min; Globulin 3.3 g/dL (2.2-4.2); Glucose 97 mg/dL (74-106); Magnesium 2.3 mg/dL (1.6-2.6); Phosphorus 3.2 mg/dL (2.5-4.9); Potassium 3.5 mmol/L (3.5-5.1); Sodium Level 135 mmol/L (136-145)
[2020-04-01] MEDS: Na Biphos/Potassium Phosphate PACKET 1 PACKET PO ×3 (09:32→20:23)
[2020-04-01] MEDS: Folic Acid 1 MG Tablet PO (09:32)
[2020-04-01] MEDS: Thiamine Hydrochloride 100 MG Tablet PO (09:32)
[2020-04-01] MEDS: Gabapentin 300 MG Capsule PO (09:35)
--- NOTE | 2020-04-01 12:21 | CASEMGMT ---
Social Work Note SW placed a call to Mendoza at [facility] regarding pt. Mendoza states pt is on medical furlough from [facility] and [facility] is to contact [facility] Custodial/ when pt is discharged and they will send someone to transport pt back to [facility]. Sergeant number [phone]. Abby Olivares ASSIST[employer]ANT CONTROLLER, FOOD [employer]SEMBLER [employer]
--- NOTE | 2020-04-01 13:13 | PCM.PN.HOSP ---
<Gabino Barker PA - Last Filed: 04/01/20 13:13> Subjective: No acute issues. Pt resting comfortably in chair at bedside NAD. Pt c/o anxiety. Minimal tremor. Vitals/I&O's: Vital Signs Temp Pulse Resp BP Pulse Ox 98.8 F 95 16 101/54 L 97 04/01/20 09:29 04/01/20 09:29 04/01/20 09:29 04/01/20 09:29 04/01/20 09:29 Oxygen Delivery Method Room Air Weight: 218 lb 7.649 oz Body Mass Index (BMI) 30.4 Finger Stick Blood Glucose 108 Intake and Output for Last 24 Hours 03/30/20 03/31/20 04/01/20 23:59 23:59 23:59 Intake Total 2320 / 2320 1540 / 1540 640 / 640 Output Total 400 / 400 Balance 1920 / 1920 1540 / 1540 640 / 640 General: Alert, Oriented x3, Cooperative HEENT: Atraumatic, PERRLA, EOMI, Normocephalic Neck: Supple, No JVD, Negative Carotid Bruits Lungs: Clear to auscultation, Normal air movement Cardiovascular: Regular rate, No murmurs Abdomen: Bowel Sounds Present, Soft, Non Tender Extremities: No edema, Capillary Refill Less than 3 Seconds Skin: No rashes, No breakdown Musculoskeletal: No Tenderness to Palpation of Joints or Extremities Neurological: Cranial nerves II-XII grossly intact Psych/Mental Status: Normal Affect, Appropriate, Alert and oriented to time, place, person, mood and affect Laboratory Results 04/01/20 05:18: Sodium 135 L, Potassium 3.5, Chloride 101, Carbon Dioxide 27.0, Anion Gap 7, BUN 6 L, Creatinine 0.60 L, Estim Creat Clear Calc 139.44, Est GFR (MDRD) Af Amer 178, Est GFR (MDRD) Non-Af 147, BUN/Creatinine Ratio 10.1, Glucose 97, Calcium 8.0 L, Phosphorus 3.2, Magnesium 2.3, Total Bilirubin 0.70, AST 8 L, ALT 31, Alkaline Phosphatase 73, Total Protein 6.0 L, Albumin 2.7 L, Globulin 3.3, Albumin/Globulin Ratio 0.8 L Current Medications Acetaminophen (Acetaminophen 325 Mg Tablet) 650 mg PO Q6H PRN PRN PRN Reason: Pain Score 1-10/Temp > 100.7 F Al Hydroxide/Mg Hydroxide (Mag Hydrox/Al Hydrox/Simeth 30 Ml Udc) 30 ml PO Q6H PRN PRN PRN Reason: Gastric Burning Bisacodyl (Bisacodyl 10 Mg Suppository) 10 mg RECTAL DAILY PRN PRN Reason: Constipation Dicyclomine HCl (Dicyclomine 10 Mg Capsule) 20 mg PO Q6H PRN PRN PRN Reason: abdominal discomfort Last Admin: 03/30/20 18:54 Dose: 20 mg Documented by: Enoxaparin Sodium (Enoxaparin 40 Mg/0.4 Ml Syringe) 40 mg SC DAILY COUNTS INCLUDE 234 BEDS AT THE [facility] Last Admin: 04/01/20 09:32 Dose: Not Given Documented by: Folic Acid (Folic Acid 1 Mg Tablet) 1 mg PO DAILY@0800 COUNTS INCLUDE 234 BEDS AT THE [facility] Last Admin: 04/01/20 09:32 Dose: 1 mg Documented by: Gabapentin (Gabapentin 300 Mg Capsule) 300 mg PO Q8H PRN PRN PRN Reason: moderate to severe anxiety Last Admin: 04/01/20 09:35 Dose: 300 mg Documented by: Haloperidol Lactate (Haloperidol Lactate 5 Mg/Ml Vial) 2 mg IV Q6H PRN PRN PRN Reason: AGITATION Hydroxyzine Pamoate (Hydroxyzine Sabrina 25 Mg Capsule) 50 mg PO Q4H PRN PRN PRN Reason: mild anxiety Last Admin: 03/31/20 22:07 Dose: 50 mg Documented by: Ibuprofen (Ibuprofen 600 Mg Tablet) 600 mg PO Q8H PRN PRN PRN Reason: Pain Score 1-10 Last Admin: 03/30/20 14:23 Dose: 600 mg Documented by: Loperamide HCl (Loperamide 2 Mg Capsule) 2 mg PO Q4H PRN PRN PRN Reason: LOOSE STOOLS Nicotine (Nicotine 21 Mg Patch) 21 mg TRANSDERM. DAILY COUNTS INCLUDE 234 BEDS AT THE [facility] Last Admin: 04/01/20 09:32 Dose: Not Given Documented by: Nicotine (Nicotine 21 Mg Patch) 21 mg TRANSDERM. DAILY COUNTS INCLUDE 234 BEDS AT THE [facility] Last Admin: 04/01/20 09:33 Dose: Not Given Documented by: Nicotine Polacrilex (Nicotine Polacrilex 4 Mg Gum) 4 mg PO Q2H PRN PRN PRN Reason: Nicotine Craving Ondansetron HCl (Ondansetron 8 Mg Tablet) 8 mg PO Q8H PRN PRN PRN Reason: NAUSEA Phenobarbital (Phenobarbital 32.4 Mg Tablet) 64.8 mg PO Q6H COUNTS INCLUDE 234 BEDS AT THE [facility]; Taper Stop: 04/02/20 20:59 Last Admin: 04/01/20 09:32 Dose: 64.8 mg Documented by: Potassium Phos/Sodium Phos (Na Biphos/Potassium Phosphate Packet) 1 packet PO 4X/DAY COUNTS INCLUDE 234 BEDS AT THE [facility] Last Admin: 04/01/20 09:32 Dose: 1 packet Documented by: Senna (Senna Tablet) 2 tablet PO QHS PRN PRN Reason: Constipation Sodium Chloride (0.9% Saline Lock 10 Ml Syringe) 10 - 40 ml IV UD PRN PRN Reason: SALINE FLUSH Last Admin: 03/31/20 15:27 Dose: 10 ml Documented by: Thiamine HCl (Thiamine Hydrochloride 100 Mg Tablet) 100 mg PO DAILYCM COUNTS INCLUDE 234 BEDS AT THE [facility] Last Admin: 04/01/20 09:32 Dose: 100 mg Documented by: Trazodone HCl (Trazodone 100 Mg Tablet) 100 mg PO QHS PRN PRN Reason: INSOMNIA Last Admin: 03/31/20 22:08 Dose: 100 mg Documented by: STROKE Vital Signs/Narrative: Vital Signs Temp Pulse Resp BP Pulse Ox 04/01/20 09:29 98.8 F 95 16 101/54 L 97 Medical Necessity - Tobacco Use Smoking Status: Current every day smoker Tobacco Use: Cigars Assessment/Plan All Active Problems (Last Reviewed 03/29/20 @ 16:[address] Loy Holden MD) Preop cardiovascular exam (Acute) History of ME (myocardial infarction) (Resolved) Incarcerated umbilical hernia (Acute) Bilateral inguinal hernia without obstruction or gangrene (Acute) Alcohol withdrawal (Resolved) Aspiration into airway (Resolved) Alcohol withdrawal seizure (Resolved) Acute and chronic respiratory failure with hypoxia (Resolved) EMMANUEL (acute kidney injury) (Resolved) Fracture of right humerus with nonunion (Resolved) High anion gap metabolic acidosis (Resolved) Lactic acidemia (Resolved) Respiratory failure (Resolved) 1. Alcoholism with withdrawal - continue phenobarb taper. symptoms are well improved. 2. Large inguinal hernia - gen surgery consulted - no plans for intervention at this time. CT abd/pelvis with oral/iv shows no obstruction. 3. Nicotine abuse - smokes cigars daily. Patch. DVT ppx: SCDs DC planning: reportedly the pt is going back to longterm at discharge. This patient was seen by Gabino Barker PA-C under the supervision of Dr. Pena <David Pena - Last Filed: 04/01/20 15:29> Reason for Visit: Follow-up for alcohol withdrawal syndrome. Patient also had right inguinal large hernia Objective: Patient heart rate is controlled. Blood pressure systolic 100. Patient has large inguinal irreducible hernia but is not incarcerated or obstructed. Patient is not vomiting. Was seen by Dr. Finnegan about 2 weeks ago Physical exam General: Alert, Oriented x3, Cooperative. Patient is still shaking and tremors HEENT: Atraumatic, PERRLA, EOMI, Normocephalic Oral: No Gingival or Mucosal Lesions/ Ulcerations Neck: Supple, No JVD, Negative Carotid Bruits Lungs: Air entry diminished in bilateral lung bases. No crepitation/rhonchi Cardiovascular: Regular rate, Regular Rhythm, Normal S1, Normal S2, No murmurs Abdomen: Bowel Sounds Present, Soft, Non Tender, Non-Distended. Large reducible inguinal hernia but not obstructed. It is nontender. : No renal angle tenderness. No suprapubic tenderness. Extremities: No edema, Capillary Refill Less than 3 Seconds Skin: No rashes, No breakdown Musculoskeletal: No Tenderness to Palpation of Joints or Extremities Neurological: Cranial nerves II-XII grossly intact, Deep Tendon Reflexes 2+/4 and Symmetrical, Neuro grossly intact Psych/Mental Status: Normal Affect, Appropriate. Vitals/I&O's: Vital Signs Temp Pulse Resp BP Pulse Ox 98.7 F 82 20 H 97/70 97 04/01/20 14:13 04/01/20 15:06 04/01/20 14:13 04/01/20 14:13 04/01/20 14:13 Oxygen Delivery Method Room Air Weight: 218 lb 7.649 oz Body Mass Index (BMI) 30.4 Finger Stick Blood Glucose 108 Intake and Output for Last 24 Hours 03/30/20 03/31/20 04/01/20 23:59 23:59 23:59 Intake Total 2320 / 2320 1540 / 1540 640 / 640 Output Total 400 / 400 Balance 1920 / 1920 1540 / 1540 640 / 640 Laboratory Results 04/01/20 05:18: Sodium 135 L, Potassium 3.5, Chloride 101, Carbon Dioxide 27.0, Anion Gap 7, BUN 6 L, Creatinine 0.60 L, Estim Creat Clear Calc 139.44, Est GFR (MDRD) Af Amer 178, Est GFR (MDRD) Non-Af 147, BUN/Creatinine Ratio 10.1, Glucose 97, Calcium 8.0 L, Phosphorus 3.2, Magnesium 2.3, Total Bilirubin 0.70, AST 8 L, ALT 31, Alkaline Phosphatase 73, Total Protein 6.0 L, Albumin 2.7 L, Globulin 3.3, Albumin/Globulin Ratio 0.8 L Current Medications Acetaminophen (Acetaminophen 325 Mg Tablet) 650 mg PO Q6H PRN PRN PRN Reason: Pain Score 1-10/Temp > 100.7 F Al Hydroxide/Mg Hydroxide (Mag Hydrox/Al Hydrox/Simeth 30 Ml Udc) 30 ml PO Q6H PRN PRN PRN Reason: Gastric Burning Bisacodyl (Bisacodyl 10 Mg Suppository) 10 mg RECTAL DAILY PRN PRN Reason: Constipation Dicyclomine HCl (Dicyclomine 10 Mg Capsule) 20 mg PO Q6H PRN PRN PRN Reason: abdominal discomfort Last Admin: 03/30/20 18:54 Dose: 20 mg Documented by: Enoxaparin Sodium (Enoxaparin 40 Mg/0.4 Ml Syringe) 40 mg SC DAILY COUNTS INCLUDE 234 BEDS AT THE [facility] Last Admin: 04/01/20 09:32 Dose: Not Given Documented by: Folic Acid (Folic Acid 1 Mg Tablet) 1 mg PO DAILY@0800 COUNTS INCLUDE 234 BEDS AT THE [facility] Last Admin: 04/01/20 09:32 Dose: 1 mg Documented by: Gabapentin (Gabapentin 300 Mg Capsule) 300 mg PO Q8H PRN PRN PRN Reason: moderate to severe anxiety Last Admin: 04/01/20 09:35 Dose: 300 mg Documented by: Haloperidol Lactate (Haloperidol Lactate 5 Mg/Ml Vial) 2 mg IV Q6H PRN PRN PRN Reason: AGITATION Last Admin: 04/01/20 13:41 Dose: 2 mg Documented by: Hydroxyzine Pamoate (Hydroxyzine Sabrina 25 Mg Capsule) 50 mg PO Q4H PRN PRN PRN Reason: mild anxiety Last Admin: 04/01/20 13:17 Dose: 50 mg Documented by: Ibuprofen (Ibuprofen 600 Mg Tablet) 600 mg PO Q8H PRN PRN PRN Reason: Pain Score 1-10 Last Admin: 03/30/20 14:23 Dose: 600 mg Documented by: Loperamide HCl (Loperamide 2 Mg Capsule) 2 mg PO Q4H PRN PRN PRN Reason: LOOSE STOOLS Lorazepam (Lorazepam 1 Mg Tablet) 1 mg PO Q6H PRN PRN PRN Reason: ANXIETY Nicotine (Nicotine 21 Mg Patch) 21 mg TRANSDERM. DAILY COUNTS INCLUDE 234 BEDS AT THE [facility] Last Admin: 04/01/20 09:32 Dose: Not Given Documented by: Nicotine (Nicotine 21 Mg Patch) 21 mg TRANSDERM. DAILY COUNTS INCLUDE 234 BEDS AT THE [facility] Last Admin: 04/01/20 09:33 Dose: Not Given Documented by: Nicotine Polacrilex (Nicotine Polacrilex 4 Mg Gum) 4 mg PO Q2H PRN PRN PRN Reason: Nicotine Craving Ondansetron HCl (Ondansetron 8 Mg Tablet) 8 mg PO Q8H PRN PRN PRN Reason: NAUSEA Phenobarbital (Phenobarbital 32.4 Mg Tablet) 64.8 mg PO Q6H COUNTS INCLUDE 234 BEDS AT THE [facility]; Taper Stop: 04/02/20 20:59 Last Admin: 04/01/20 14:14 Dose: 64.8 mg Documented by: Potassium Phos/Sodium Phos (Na Biphos/Potassium Phosphate Packet) 1 packet PO 4X/DAY COUNTS INCLUDE 234 BEDS AT THE [facility] Last Admin: 04/01/20 13:18 Dose: 1 packet Documented by: Senna (Senna Tablet) 2 tablet PO QHS PRN PRN Reason: Constipation Sodium Chloride (0.9% Saline Lock 10 Ml Syringe) 10 - 40 ml IV UD PRN PRN Reason: SALINE FLUSH Last Admin: 04/01/20 13:42 Dose: 10 ml Documented by: Thiamine HCl (Thiamine Hydrochloride 100 Mg Tablet) 100 mg PO DAILYCM COUNTS INCLUDE 234 BEDS AT THE [facility] Last Admin: 04/01/20 09:32 Dose: 100 mg Documented by: Trazodone HCl (Trazodone 100 Mg Tablet) 100 mg PO QHS PRN PRN Reason: INSOMNIA Last Admin: 03/31/20 22:08 Dose: 100 mg Documented by: STROKE Vital Signs/Narrative: Vital Signs Temp Pulse Resp BP Pulse Ox 04/01/20 15:06 82 04/01/20 14:13 98.7 F 95 20 H 97/70 97 Assessment/Plan This patient was seen in conjunction with Gabino TORREZ. I have independently interviewed and examined the patient and reviewed pertinent history, examination findings, laboratory and plan of management. I have reviewed the note and agree with the documented findings with the few additional points. In brief, patient is admitted for acute alcohol withdrawal on phenobarb taper. Patient has large irreducible hernia but not obstructed. CT abdomen pelvis shows no bowel obstruction although it contains multiple loops of ileum, cecum, proximal ascending colon. Patient also has chronic nicotine use. I have discussed my assessment with Gabino TORREZ and orders have been reviewed. Clinical Impression(s) from Imaging Studies Abdomen/Pelvis CT 03/29/20 13:36 IMPRESSION: Large right inguinal hernia containing multiple loops of ileum, ileocecal valve, cecum, proximal ascending colon without bowel obstruction. Inpatient E&M: 62285 Subs Hosp L2
[2020-04-01] MEDS: hydrOXYzine PAM 25 MG Capsule 50 MG PO (13:17)
[2020-04-01] MEDS: Haloperidol Lactate 5 MG/ML Vial 2 MG IV (13:41)
[2020-04-01] MEDS: 0.9% Saline Lock 10 ML Syringe IV (13:42)
--- NOTE | 2020-04-01 15:45 | CHAPLAIN ---
Type of Pastoral Visit _x__ Initial Visit ___ Follow-up Visit ___ On-call Visit ___ General Patient Visit ___ Spiritual Assessment ___ Family Conference ___ Bereavement ___ Rapid Response ___ Code Blue ___ Other (describe below) Pastoral Care Referral From _x__ Patient ___ Family _x__ Nurse ___ Physician ___ Divemaster ___ Steam Hammer Operator ___ Other (describe below) Sacrament/Intervention _x__ Active listening ___ Anointing ___ Sikhism ___ Bereavement ___ Communion ___ Shala exploration ___ _x__ Life review ___ Prayer ___ Reconciliation ___ Sacrament of Sick _x__ Supportive presence ___ Wedding ___ Other (describe below) Pastoral Comments patient has been active and was at the doorway looking for ice water when this rehabilitation caseworker arrived; offered to sit with patient and he allowed it; pt talks about his other experiences with chaplains in the half-way and his early life going to [employer]; pt speaks of having deaths of his father, , and brother and that I turn to the bottle; pt is expecting to have surgery and to return to half-way; pt is pleasant but states that I am done talking now; pt sitting in chair and picks up his phone stating I need to make some phone calls now
[2020-04-01] MEDS: Ibuprofen 600 MG Tablet PO (20:21)
[2020-04-01] MEDS: LORazepam 1 MG Tablet PO (20:21)
[2020-04-01] MEDS: Dicyclomine 10 MG Capsule 20 MG PO (20:21)
[2020-04-02 02:15] VITALS: BP 132/76; PULSE 78; RESP 20; TEMP 36.5; O2SAT 96
[2020-04-02] MEDS: Phenobarbital 32.4 MG Tablet PO ×2 (02:24→09:19)
[2020-04-02 03:00] VITALS: PULSE 72
[2020-04-02] MEDS: Acetaminophen 325 MG Tablet 650 MG PO (06:41)
[2020-04-02] MEDS: LORazepam 1 MG Tablet PO (06:42)
[2020-04-02 08:00] VITALS: BP 118/61; PULSE 98; RESP 16; TEMP 37.3; O2SAT 99
[2020-04-02 08:04] VITALS: BP 118/61; PULSE 98; RESP 16; TEMP 37.3; O2SAT 99
[2020-04-02] MEDS: Thiamine Hydrochloride 100 MG Tablet PO (08:13)
[2020-04-02] MEDS: Folic Acid 1 MG Tablet PO (08:13)
[2020-04-02] MEDS: Na Biphos/Potassium Phosphate PACKET 1 PACKET PO (09:19)
[2020-04-02 09:20] VITALS: PULSE 84
--- NOTE | 2020-04-02 10:29 | DCINST_ITS ---
- Discharge Diagnoses Current Active Problems: Current Active and Chronic Problems (Last Reviewed 03/29/20 @ 16:[address] Loy Holden MD) Inguinal hernia (Chronic) Nicotine abuse (Chronic) You will use the following diet at home:: No restrictions, Other - no alcohol at all Your food should be the consistency of: Regular Your liquids should be the consistency of: Regular/Thin Discharge Activity: Return to Normal Activity Allergies/Adverse Reactions: Allergies No Known Allergies Allergy (Verified 03/29/20 08:18) Medications to take at Discharge aspirin 81 mg tablet,delayed release 81 mg PO DAILY 07/04/19 lansoprazole 15 mg capsule,delayed release 15 mg PO DAILY PRN 07/04/19 Primary Care Physician: Adalberto Daniel MD [Primary Care Provider] - Please follow up with your Primary Care Physician in: 2 weeks Test Results: Test results from this visit will be discussed in further detail at your follow- up appointment, if applicable. Please Follow Up With: Abiodun Finnegan MD - General Surgeon, Re: hernia When: 2 weeks Proposed Discharge Date: 04/02/20
[2020-04-02 11:00] VITALS: BP 138/80; PULSE 115; RESP 18; TEMP 37; O2SAT 98
--- NOTE | 2020-04-02 14:11 | PCM.DC.SUM ---
<Gabino Barker - Last Filed: 04/02/20 14:11> Discharge Date and Diagnosis Date of Admission: 03/29/20 Date of Discharge: 04/02/20 - Primary Discharge Diagnosis Acute Problems: Alcoholism with acute withdrawal Large inguinal hernia Nicotine abuse - Secondary Discharge Diagnosis Chronic Problems: Chronic Problems (Last Reviewed 03/29/20 @ 16:[address] Loy Holden MD) Inguinal hernia (Chronic) Nicotine abuse (Chronic) History of DVT (deep vein thrombosis) (Chronic) Radial nerve palsy (Chronic) Alcohol dependence syndrome (Chronic) Hospital Course and Treatment Imaging Results: CT/Abdomen/Pelvis WITH Contrast IMPRESSION: Large right inguinal hernia containing multiple loops of ileum, ileocecal valve, cecum, proximal ascending colon without bowel obstruction. Consults: Gen surgery - Adina Operations: None Procedures: None Summary of Care Provided: Hospital Course: The patient is a 60 year old M with pmhx of nicotine abuse, alcoholism with prior withdrawal seizure, Gerd, and a large inguinal hernia who presented to the ER with request for alcohol detox. The patient had been arrested the day prior to presentation and he was sent to the ER from [facility] living. He was admitted to the PCU and placed on phenobarbital taper. His tox screen showed marijuana, benzodiazepines, and barbiturates. He complained about his large hiatal hernia being uncomfortable and requested that he undergo surgery while here. He had seen both Dr. Finnegan and Dr. Hernandez for this in the past. A CT was obtained showing multiple bowel sections in the hernia with no obstruction. Surgery was consulted, and did not feel that there was an urgent need for surgery. His alcohol withdrawal symptoms resolved. He was discharged home in stable condition and should follow up with his PCP in 1-[address] Finnegan in 2 weeks regarding his hernia. This patient was seen by Gabino Barker PA-C under the supervision of Dr. Pena [] - Physical Exam Vitals/I&O's: Vital Signs Temp Pulse Resp BP Pulse Ox 98.6 F 115 H 18 138/80 H 98 04/02/20 11:00 04/02/20 11:00 04/02/20 11:00 04/02/20 11:00 04/02/20 11:00 Oxygen Delivery Method Room Air Weight: 218 lb 7.649 oz Body Mass Index (BMI) 30.4 Finger Stick Blood Glucose 108 Intake and Output for Last 24 Hours 03/31/20 04/01/20 04/02/20 23:59 23:59 23:59 Intake Total 1540 / 1540 1240 / 1600 1160 / 1160 Balance 1540 / 1540 1240 / 1600 1160 / 1160 General: Alert, Oriented x3, Cooperative HEENT: Atraumatic, PERRLA, EOMI, Normocephalic Neck: Supple, No JVD, Negative Carotid Bruits Lungs: Clear to auscultation, Normal air movement Cardiovascular: Regular rate, No murmurs Abdomen: Bowel Sounds Present, Soft, Non Tender Extremities: No edema, Capillary Refill Less than 3 Seconds Skin: No rashes, No breakdown Musculoskeletal: No Tenderness to Palpation of Joints or Extremities Neurological: Cranial nerves II-XII grossly intact Psych/Mental Status: Normal Affect, Appropriate, Alert and oriented to time, place, person, mood and affect Discharge Diet: - - no alcohol Discharge Activity: Return to Normal Activity Home Medications: Medications to take at Discharge aspirin 81 mg tablet,delayed release 81 mg PO DAILY 07/04/19 lansoprazole 15 mg capsule,delayed release 15 mg PO DAILY PRN 07/04/19 Primary Care Physician: Adalberto Daniel MD [Primary Care Provider] - Please follow up with your Primary Care Physician in: 2 weeks Please Follow Up With: Abiodun Finnegan MD When: 2 weeks Please Follow Up With: Adalberto Daniel MD Disposition: Home Minutes spent on discharge:: 35 Patient Condition:: Poor Medical Necessity - Tobacco Use Smoking Status: Current every day smoker Tobacco Use: Cigars Meaningful Use Info Meaningful Use Diagnoses (Choose all that apply): None applicable <David Pena - Last Filed: 04/02/20 15:54> Discharge Date and Diagnosis - Secondary Discharge Diagnosis Chronic Problems: Chronic Problems (Last Reviewed 03/29/20 @ 16:[address] Loy Holden MD) Inguinal hernia (Chronic) Nicotine abuse (Chronic) History of DVT (deep vein thrombosis) (Chronic) Radial nerve palsy (Chronic) Alcohol dependence syndrome (Chronic) Hospital Course and Treatment Summary of Care Provided: [] This patient was seen in conjunction with Gabino TORREZ. I have independently interviewed and examined the patient and reviewed pertinent history, examination findings, laboratory and plan of management. I have reviewed the note and agree with the documented findings with the few additional points. In brief, patient is admitted for acute alcohol withdrawal on phenobarb taper. Patient has large irreducible hernia but not obstructed. CT abdomen pelvis shows no bowel obstruction although it contains multiple loops of ileum, cecum, proximal ascending colon. Patient also has chronic nicotine use. Discharged Home. Advised to remain sober and Follow up Dr Finnegan. Discharge meds reconciliation done and Follow up instructions completed. I have discussed my assessment with Gabino TORREZ and orders have been reviewed. Clinical Impression(s) from Imaging Studies Abdomen/Pelvis CT 03/29/20 13:36 IMPRESSION: Large right inguinal hernia containing multiple loops of ileum, ileocecal valve, cecum, proximal ascending colon without bowel obstruction. Objective: Pt HR and BP controlled. Completed Pheno taper. Physical exam General: Alert, Oriented x3, Cooperative. HEENT: Atraumatic, PERRLA, EOMI, Normocephalic Oral: No Gingival or Mucosal Lesions/ Ulcerations Neck: Supple, No JVD, Negative Carotid Bruits Lungs: Air entry diminished in bilateral lung bases. No crepitation/rhonchi Cardiovascular: Regular rate, Regular Rhythm, Normal S1, Normal S2, No murmurs Abdomen: Bowel Sounds Present, Soft, Non Tender, Non-Distended. Large reducible inguinal hernia but not obstructed. It is nontender. : No renal angle tenderness. No suprapubic tenderness. Extremities: No edema, Capillary Refill Less than 3 Seconds Skin: No rashes, No breakdown Musculoskeletal: No Tenderness to Palpation of Joints or Extremities Neurological: Cranial nerves II-XII grossly intact, Deep Tendon Reflexes 2+/4 and Symmetrical, Neuro grossly intact Psych/Mental Status: Normal Affect, Appropriate. - Physical Exam Vitals/I&O's: Vital Signs Temp Pulse Resp BP Pulse Ox 98.6 F 115 H 18 138/80 H 98 04/02/20 11:00 04/02/20 11:00 04/02/20 11:00 04/02/20 11:00 04/02/20 11:00 Oxygen Delivery Method Room Air Weight: 218 lb 7.649 oz Body Mass Index (BMI) 30.4 Finger Stick Blood Glucose 108 Intake and Output for Last 24 Hours 03/31/20 04/01/20 04/02/20 23:59 23:59 23:59 Intake Total 1540 / 1540 1240 / 1600 1160 / 1160 Balance 1540 / 1540 1240 / 1600 1160 / 1160 Inpatient E&M: 66941 Disch Hosp
== END 2020-04-02 11:04 | DRG 775 ==
LOC: ED 08:45 → PCU 11:45
PROVIDERS: Physician Assistant; Admitting Provider Internal Medicine; Emergency Provider Emergency Medicine; PCP Family Medicine; Visit Provider Internal Medicine
DX: F10.239 Alcohol dependence with withdrawal, unspecified (principal); K40.90 Unilateral inguinal hernia, without obstruction or gangrene, not specified as recurrent; E83.42 Hypomagnesemia; E87.6 Hypokalemia; E83.39 Other disorders of phosphorus metabolism; I25.10 Atherosclerotic heart disease of native coronary artery without angina pectoris; I10 Essential (primary) hypertension; K21.9 Gastro-esophageal reflux disease without esophagitis; F32.9 Major depressive disorder, single episode, unspecified; F17.290 Nicotine dependence, other tobacco product, uncomplicated; Z79.82 Long term (current) use of aspirin; I25.2 Old myocardial infarction; Z86.73 Personal history of transient ischemic attack (TIA), and cerebral infarction without residual deficits; Z86.718 Personal history of other venous thrombosis and embolism
CPT/HCPCS: 36415; 74177; 80053; 80069; 80307; 80320; 83690; 83735; 84100; 85025; 93005; 97802; 99281; 99285; J7030; Q9967; A4216; G0480

== ENCOUNTER 2021-12-11 17:02 | Emergency (ER) | payer MEDICAID, SELFPAY ==
[2021-12-11 17:04] VITALS: BP 141/106; PULSE 133; RESP 22; TEMP 37.1; O2SAT 93; BMI 32.8
--- NOTE | 2021-12-11 17:18 | EDS_ITS ---
HPI <CURT Garcia - Last Filed: 12/11/21 19:18> History of Present Illness Chief Complaint: Fall Narrative Narrative: 61-year-old male with history of alcohol abuse, COPD, EMMANUEL presents to the emergency department after a fall while intoxicated. Patient was sitting on a chair, fell down 3 steps a neighbor called and he is here for evaluation. Patient arrives alert and oriented however he is combative, not following commands. Patient states that he is not intoxicated and he would like to go home. Patient is clearly intoxicated, per EMS, the mother is 93 years old and does not drive. His drinking has been worse over the last several days. Patie nt denies any pain. PFSH <CURT Garcia - Last Filed: 12/11/21 19:18> [facility] Medical History Acute and chronic respiratory failure with hypoxia EMMANUEL (acute kidney injury) Alcohol dependence syndrome Alcohol withdrawal Alcohol withdrawal seizure Aspiration into airway Atherosclerosis of coronary artery of [place] heart without angina pectoris Bilateral inguinal hernia without obstruction or gangrene Essential hypertension Fracture of right humerus with nonunion GERD (gastroesophageal reflux disease) High anion gap metabolic acidosis History of CVA (cerebrovascular accident) History of DVT (deep vein thrombosis) History of CA (myocardial infarction) Incarcerated umbilical hernia Lactic acidemia Preop cardiovascular exam Radial nerve palsy Respiratory failure Home Medications aspirin 81 mg tablet,delayed release (Adult Low Dose Aspirin) 81 mg PO DAILY Check with primary doctor 07/04/19 [History Last Taken 03/29/20] lansoprazole 15 mg capsule,delayed release (Prevacid) 15 mg PO DAILY PRN Pain 1- 10 Or Fever 07/04/19 [History Last Taken Unknown] Allergy/AdvReac Type Severity Reaction Status Date / Time No Known Allergies Allergy Verified 03/29/20 08:18 Family History Mother Colon cancer Heart disease Father Lymphoma Heart disease Surgical History History of esophagogastroduodenoscopy (EGD) History of tonsillectomy and adenoidectomy Social History (Updated 08/12/20 @ 14:[address] Champ Hernandez MD) Smoking Status: Current every day smoker tobacco type: cigarettes alcohol intake: former year quit: 2019 substance use type: does not use caffeine: Yes Type: carbonated beverages Number of servings: 2 and coffee Number of servings: 6 what type of physical activity do you participate in: walking frequency: daily ROS <CURT Garcia - Last Filed: 12/11/21 19:18> ROS ED ROS Narrative Patient is intoxicated, and states to have no complaints. Constitutional: Negative for fever, chills, weight loss, weakness Eyes: Negative for vision loss, vision change, double vision ENT: Negative for any sore throat, ear pain, congestion Cardiovascular: Negative for any chest pain, tightness, palpitations Respiratory: Negative for any cough, sputum production, hemoptysis, dyspnea, dyspnea on exertion, orthopnea Gastrointestinal: Negative for any abdominal pain, nausea, vomiting, diarrhea, constipation, blood in stool, blood in vomit : Negative for any urinary frequency, dysuria, retention, blood in urine Muscle skeletal: Negative for any muscle joint pain, stiffness, myalgias, arthralgias, neck pain, back pain Neurological: Negative for any headache, syncope, numbness or tingling, dizziness Skin: Negative for any rashes, lumps, itching, abrasions, lacerations Psychiatric: Negative for any depression, anxiety, stress, suicidal ideation, homicidal ideation Hematologic: Negative for any easy bruising, excessive bruising, easy bleeding Allergies: Negative for any eczema, hives, rash EXAM <CURT Garcia - Last Filed: 12/11/21 19:18> Physical Exam Narrative Exam Narrative: Vital signs reviewed. Patient smells of alcohol, patient is alert and orient x4, patient is not following commands, being argumentative. HEET: Head normocephalic atraumatic, TMs clear bilaterally. Posterior pharynx is clear, moist mucous membranes. Nares clear bilaterally. Pupils are slow to respond however they are equal and reactive, negative for any hematoma, septal hematoma. Neck: Supple with no lymphadenopathy or tenderness. No signs of meningismus, negative jolt sign. Cardiac: Regular rate and rhythm no murmurs gallops or rubs, equal peripheral pulses bilaterally. Respiratory: Lungs clear to auscultation bilaterally. No chest tenderness. Abdomen: Soft, nontender, nondistended. No abdominal bruit or pulsatile masses. No hepatosplenomegaly Extremities: No peripheral edema, no signs of gross trauma or deformity. Active full range of motion of all extremities. Neuro: Cranial nerves II through XII intact, no focal neurological deficits. Skin: Clean dry and intact with no rash, purpura, petechiae, vesicles or pustules. Backs/flank: No CVA tenderness, no midline spinal tenderness, no deformity. Psych: Normal mood and affect. No SI, HI or acute psychosis. Const Vital Signs: 12/11/21 17:04 12/11/21 18:03 12/11/21 20:09 Temperature 98.7 F Temperature Source Temporal Pulse Rate 133 H 102 H Respiratory Rate 22 H 20 H 18 Blood Pressure 141/106 H 179/80 H Blood Pressure Mean 117 113 Pulse Ox 93 88 Oxygen Delivery Method Room Air Nasal Cannula Oxygen Flow Rate (L/min) 3 12/11/21 22:41 12/11/21 23:45 Temperature Temperature Source Pulse Rate 135 H Respiratory Rate 21 H Blood Pressure 160/81 H Blood Pressure Mean 107 Pulse Ox Oxygen Delivery Method Oxygen Flow Rate (L/min) <Dr. William Mendenhall DO - Last Filed: 12/12/21 00:13> Physical Exam Const Vital Signs: 12/11/21 17:04 12/11/21 18:03 12/11/21 20:09 Temperature 98.7 F Temperature Source Temporal Pulse Rate 133 H 102 H Respiratory Rate 22 H 20 H 18 Blood Pressure 141/106 H 179/80 H Blood Pressure Mean 117 113 Pulse Ox 93 88 Oxygen Delivery Method Room Air Nasal Cannula Oxygen Flow Rate (L/min) 3 12/11/21 22:41 12/11/21 23:45 Temperature Temperature Source Pulse Rate 135 H Respiratory Rate 21 H Blood Pressure 160/81 H Blood Pressure Mean 107 Pulse Ox Oxygen Delivery Method Oxygen Flow Rate (L/min) MDM <CURT Garcia - Last Filed: 12/11/21 19:18> [facility] Lab Data Labs: Laboratory Results - last 24 hr 12/11/21 12/11/21 12/11/21 17:20 17:20 17:20 WBC 5.2 RBC 4.51 L Hgb 15.5 Hct 44.1 MCV 97.8 H MCH 34.4 H MCHC 35.1 RDW Std Deviation 45.0 H RDW Coeff of Valerio 12.7 Plt Count 125 L MPV 8.7 Immature Gran % (Auto) 0.600 Neut % (Auto) 33.2 L Lymph % (Auto) 53.1 H [place] % (Auto) 9.8 Eos % (Auto) 2.3 Baso % (Auto) 1.0 Absolute Neuts (auto) 1.7 L Absolute Lymphs (auto) 2.77 Nucleated RBC % 0 Sodium 143 Potassium 3.6 Chloride 106 Carbon Dioxide 22.0 Anion Gap 15 BUN 9 Creatinine 0.84 Estim Creat Clear Calc 101.36 Est GFR (MDRD) Af Amer 120 Est GFR (MDRD) Non-Af 99 BUN/Creatinine Ratio 10.7 Glucose 116 H Calcium 9.0 Total Bilirubin 1.00 Direct Bilirubin 0.40 H AST 60 H ALT 53 Alkaline Phosphatase 85 Total Protein 7.6 Albumin 4.0 Globulin 3.6 Lipase 165 Urine Color Urine Clarity Urine pH Ur Specific [place] Urine Protein Urine Glucose (UA) Urine Ketones Urine Occult Blood Urine Nitrite Urine Bilirubin Urine Urobilinogen Ur Leukocyte Esterase Urine RBC Urine WBC Ur Squamous Epith Cells Urine Bacteria Hyaline Casts Fine Granular Casts Coarse Granular Casts Urine Mucus Urine Opiates Screen Urine Methadone Screen Ur Barbiturates Screen Ur Phencyclidine Scrn Ur Amphetamines Screen MDMA (Ecstasy) Screen U Benzodiazepines Scrn Urine Cocaine Screen U Cannabinoids Screen Ur Drug Screen Comment Ethyl Alcohol 519.0 H* 12/11/21 12/11/21 19:08 19:08 WBC RBC Hgb Hct MCV MCH MCHC RDW Std Deviation RDW Coeff of Valerio Plt Count MPV Immature Gran % (Auto) Neut % (Auto) Lymph % (Auto) [place] % (Auto) Eos % (Auto) Baso % (Auto) Absolute Neuts (auto) Absolute Lymphs (auto) Nucleated RBC % Sodium Potassium Chloride Carbon Dioxide Anion Gap BUN Creatinine Estim Creat Clear Calc Est GFR (MDRD) Af Amer Est GFR (MDRD) Non-Af BUN/Creatinine Ratio Glucose Calcium Total Bilirubin Direct Bilirubin AST ALT Alkaline Phosphatase Total Protein Albumin Globulin Lipase Urine Color Yellow Urine Clarity Clear Urine pH 6.0 Ur Specific [place] 1.020 Urine Protein 100 H Urine Glucose (UA) Normal Urine Ketones 5 H Urine Occult Blood 50 H Urine Nitrite Negative Urine Bilirubin Negative Urine Urobilinogen Normal Ur Leukocyte Esterase 25 H Urine RBC 0 SEEN Urine WBC 0-5 SEEN Ur Squamous Epith Cells 0-5 SEEN Urine Bacteria 1+ Hyaline Casts 25-50 SEEN Fine Granular Casts 25-50 SEEN Coarse Granular Casts 5-10 SEEN Urine Mucus 0 SEEN Urine Opiates Screen NEGATIVE Urine Methadone Screen NEGATIVE Ur Barbiturates Screen NEGATIVE Ur Phencyclidine Scrn NEGATIVE Ur Amphetamines Screen NEGATIVE MDMA (Ecstasy) Screen NEGATIVE U Benzodiazepines Scrn NEGATIVE Urine Cocaine Screen NEGATIVE U Cannabinoids Screen NEGATIVE Ur Drug Screen Comment Ethyl Alcohol Radiography Diagnostic Testing: Clinical Impression(s) from Imaging Studies Brain CT 12/11/21 20:15 IMPRESSION: Moderate atrophy and periventricular white matter ischemic change. No evidence for acute bleed. Electronically Signed: Korey Dias MD at 20:38 EDT , Cervical Spine CT 12/11/21 20:15 IMPRESSION: Mild spondylosis. No acute fracture or other significant bony pathology. Incidental finding of small nodule in the right lobe of thyroid which further assessed with ultrasound if clinically warranted Electronically Signed: Korey Dias MD at 20:41 EDT , Treatment and Re-Evaluation Narrative: Patient arrives intoxicated, not following commands, patient presents the emergency department after a fall down 3 steps, and neighbor called and he was here for evaluation. Patient denied any physical complaints, however due to the patient's impairment a CT scan of the brain, cervical spine was ordered. As well as laboratory values. Patient's CBC was unremarkable, patient's chemistries showed slight elevated total at 0.4. AST of 60. However this is consistent with his alcoholism. Patient's alcohol level was 519.0. This is a critical high value. Patient was given IV fluids. Patient is refusing the CAT scan of his brain and cervical spine, I explained to the patient multiple times that the CAT scan needs to be completed due to his impairment secondary to alcohol. Patient states he understood, he went to CT however he did not follow any other commands, was swearing at the CAT scan techs and they will bring him back over. Patient will receive IM Geodon, restraints as needed to receive the CAT scan of his cervical spine and brain. <Dr. William Mendenhall, DO - Last Filed: 12/12/21 00:13> [facility] Narrative Medical decision making narrative: 61-year-old male presenting with altered mental status, EtOH intoxication, reported fall. I spoke with his mother who stated she was very concerned for him after the fall. She states he had been drinking most of the day and reports that she is seen him drink a large bottle of [place] mist. She states he is a very heavy drinker. Is reported that he fell from a height of 3 steps today. The neighbors called because they saw him fall. There is no evidence of trauma on his examination. I did obtain blood work and his CBC and CMP are fairly unremarkable. Urinalysis is negative for infection. Urine drug screen is also negative. Because the patient fell and is intoxicated and obviously confused due to his EtOH abuse I did need to get CT imaging of his head and spine. Patient became aggressive and trying to leave although he was clearly intoxicated with an alcohol level of 519. I counseled him that he would need a sober ride but we need to do some imaging first and he became very aggressive. After we spoke to him he stated he would be calm allow us to get imaging of his brain and cervical spine however when he arrived to CT he became aggressive again instructed to leave. He was transported back to the ED and given Geodon. When he became sedated CT of the brain and cervical spine were obtained and these are negative with exception of incidental finding of a thyroid nodule. Patient has been monitored here for 5 or 6 hours and he is still very sleepy. He is refusing to get up and try to ambulate. I do feel he can leave at this point with a sober ride if he can get up and ambulate safely. His work-up is ultimately negative. His mother did report to me earlier that she does not drive and she is elderly. Impression: 1. Fall 2. EtOH abuse 3. Thyroid nodule Lab Data Attestation: I reviewed the patient's lab results. Labs: Laboratory Results - last 24 hr 12/11/21 12/11/21 12/11/21 17:20 17:20 17:20 WBC 5.2 RBC 4.51 L Hgb 15.5 Hct 44.1 MCV 97.8 H MCH 34.4 H MCHC 35.1 RDW Std Deviation 45.0 H RDW Coeff of Valerio 12.7 Plt Count 125 L MPV 8.7 Immature Gran % (Auto) 0.600 Neut % (Auto) 33.2 L Lymph % (Auto) 53.1 H [place] % (Auto) 9.8 Eos % (Auto) 2.3 Baso % (Auto) 1.0 Absolute Neuts (auto) 1.7 L Absolute Lymphs (auto) 2.77 Nucleated RBC % 0 Sodium 143 Potassium 3.6 Chloride 106 Carbon Dioxide 22.0 Anion Gap 15 BUN 9 Creatinine 0.84 Estim Creat Clear Calc 101.36 Est GFR (MDRD) Af Amer 120 Est GFR (MDRD) Non-Af 99 BUN/Creatinine Ratio 10.7 Glucose 116 H Calcium 9.0 Total Bilirubin 1.00 Direct Bilirubin 0.40 H AST 60 H ALT 53 Alkaline Phosphatase 85 Total Protein 7.6 Albumin 4.0 Globulin 3.6 Lipase 165 Urine Color Urine Clarity Urine pH Ur Specific [place] Urine Protein Urine Glucose (UA) Urine Ketones Urine Occult Blood Urine Nitrite Urine Bilirubin Urine Urobilinogen Ur Leukocyte Esterase Urine RBC Urine WBC Ur Squamous Epith Cells Urine Bacteria Hyaline Casts Fine Granular Casts Coarse Granular Casts Urine Mucus Urine Opiates Screen Urine Methadone Screen Ur Barbiturates Screen Ur Phencyclidine Scrn Ur Amphetamines Screen MDMA (Ecstasy) Screen U Benzodiazepines Scrn Urine Cocaine Screen U Cannabinoids Screen Ur Drug Screen Comment Ethyl Alcohol 519.0 H* 12/11/21 12/11/21 19:08 19:08 WBC RBC Hgb Hct MCV MCH MCHC RDW Std Deviation RDW Coeff of Valerio Plt Count MPV Immature Gran % (Auto) Neut % (Auto) Lymph % (Auto) [place] % (Auto) Eos % (Auto) Baso % (Auto) Absolute Neuts (auto) Absolute Lymphs (auto) Nucleated RBC % Sodium Potassium Chloride Carbon Dioxide Anion Gap BUN Creatinine Estim Creat Clear Calc Est GFR (MDRD) Af Amer Est GFR (MDRD) Non-Af BUN/Creatinine Ratio Glucose Calcium Total Bilirubin Direct Bilirubin AST ALT Alkaline Phosphatase Total Protein Albumin Globulin Lipase Urine Color Yellow Urine Clarity Clear Urine pH 6.0 Ur Specific [place] 1.020 Urine Protein 100 H Urine Glucose (UA) Normal Urine Ketones 5 H Urine Occult Blood 50 H Urine Nitrite Negative Urine Bilirubin Negative Urine Urobilinogen Normal Ur Leukocyte Esterase 25 H Urine RBC 0 SEEN Urine WBC 0-5 SEEN Ur Squamous Epith Cells 0-5 SEEN Urine Bacteria 1+ Hyaline Casts 25-50 SEEN Fine Granular Casts 25-50 SEEN Coarse Granular Casts 5-10 SEEN Urine Mucus 0 SEEN Urine Opiates Screen NEGATIVE Urine Methadone Screen NEGATIVE Ur Barbiturates Screen NEGATIVE Ur Phencyclidine Scrn NEGATIVE Ur Amphetamines Screen NEGATIVE MDMA (Ecstasy) Screen NEGATIVE U Benzodiazepines Scrn NEGATIVE Urine Cocaine Screen NEGATIVE U Cannabinoids Screen NEGATIVE Ur Drug Screen Comment Ethyl Alcohol Radiography Diagnostic Testing: Clinical Impression(s) from Imaging Studies Brain CT 12/11/21 20:15 IMPRESSION: Moderate atrophy and periventricular white matter ischemic change. No evidence for acute bleed. Electronically Signed: Korey Dias MD at 20:38 EDT [place] [facility] [place] , Service support , Cervical Spine CT 12/11/21 20:15 IMPRESSION: Mild spondylosis. No acute fracture or other significant bony pathology. Incidental finding of small nodule in the right lobe of thyroid which further assessed with ultrasound if clinically warranted Electronically Signed: Korey Dias MD at 20:41 EDT , Discharge Plan Triage Chief Complaint: Fall Other Complaint: ETOH Intox ED Midlevel Provider: Kali Lee ED Provider: William Mendenhall Dx/Rx/DC Orders Instructions: ED Alcohol Intoxication, ED Alcohol Abuse Prescriptions: No Action lansoprazole [Prevacid] 15 mg capsule,delayed release(DR/EC) 15 mg PO DAILY PRN (Reason: Pain 1-10 Or Fever) aspirin [Adult Low Dose Aspirin] 81 mg tablet,delayed release (DR/EC) 81 mg PO DAILY Primary Care Provider: Adalberto Daniel Referrals: Adalberto Daniel MD [Primary Care Provider] - Activity Restrictions/Additional Instructions: It was noted today on ER CT scan of the cervical spine that you have at incidental finding of a thyroid nodule. He will need to have this followed up by your primary care physician in a nonemergent fashion. Disposition Disposition: Home, Self Care
[2021-12-11 17:32] LABS: Absolute Lymphocyte Count 2.77 X10^3/uL (0.83-4.51); Absolute Neutrophil Count 1.7 X10^3/uL (2.0-7.7); Basophil# 0.05 X10^3/uL; Eosinophil# 0.12 X10^3/uL; Eosinophils% 2.3 % (0-5); Hematocrit 44.1 % (40-54); Hemoglobin 15.5 g/dL (13.0-16.5); Lymphocyte # 2.77 X10^3/ul (0.83-4.51); Lymphocyte % 53.1 % (19-41); Mean Corp Hgb Conc 35.1 g/dL (32-36); Mean Corpuscular Hgb 34.4 pg (27.0-32.0); Mean Corpuscular Volume 97.8 fL (80-94); Mean Platelet Vol. 8.7 fl (6.2-12.0); Monocyte# 0.51 X10^3/uL; Monocyte% 9.8 % (0-10); NRBC Flagged by Analyzer 0 % (0-5); Neutrophil # 1.74 X10^3/uL (2.7-7.7); Neutrophil % 33.2 % (47-70); Platelet Count 125 K/mm3 (150-450); RBC Distribution Width CV 12.7 % (11.6-14.6); Red Blood Count 4.51 M/mm3 (4.6-6.2); White Blood Count 5.2 K/mm3 (4.4-11.0)
[2021-12-11 17:48] LABS: AST(SGOT) 60 U/L (15-37); Alanine Aminotransfer ALT/SGPT 53 U/L (16-61); Alkaline Phosphatase 85 U/L (45-117); Anion Gap 15 (5-15); BUN 9 mg/dL (7-18); BUN/Creat Ratio 10.7 RATIO (10-20); Chloride 106 mmol/L (98-107); Creatinine, Serum 0.84 mg/dL (0.70-1.30); EST Glomerular Filtration Rate 99 mL/min (>60); Est Glom Filt Rate - Afr Amer 120 mL/min (>60); Estimated Creatinine Clearance 101.36 ml/min; Globulin 3.6 g/dL (2.2-4.2); Glucose 116 mg/dL (74-106); Lipase 165 U/L (73-393); Potassium 3.6 mmol/L (3.5-5.1); Protein, Total 7.6 g/dL (6.4-8.2); Sodium Level 143 mmol/L (136-145)
[2021-12-11 18:03] VITALS: RESP 20
--- NOTE | 2021-12-11 18:42 | NURSING ---
PT REFUSES CT SCAN AT THIS TIME.
[2021-12-11 19:24] LABS: Mucous, Urine 0 SEEN /hpf (<or=2+); Red Blood Cells-Urine 0 SEEN /hpf (0-5)
[2021-12-11 19:27] LABS: Color, Urine Yellow (Yellow); Glucose, Dipstick Normal (Normal); Ketone-Dipstick 5 mg/dl (Negative); Leukocyte Esterase-Dipstick 25 /ul (Negative); Nitrite-Dipstick Negative (Negative); Occult Blood-Urine 50 /ul (Negative); Protein-Dipstick 100 mg/dl (Negative); Urine Bilirubin Dipstick Negative (Negative); Urine Clarity Clear (Clear); Urine Urobilinogen Normal (Normal)
[2021-12-11] MEDS: Ziprasidone IM 20 MG/ML VIAL IM (19:29)
[2021-12-11] MEDS: 0.9% Normal Saline 1,000 ML 1000 ML IV (19:30)
[2021-12-11 19:39] LABS: Bacteria 1+ /hpf (None Seen); Squamous Epithelial Cells - UA 0-5 SEEN /hpf (0-5); White Blood Cells 0-5 SEEN /hpf (0-5)
[2021-12-11 19:40] LABS: Coarse Granular Cast 5-10 SEEN /lpf (0-5 /lpf); Fine Granular Cast- Urine 25-50 SEEN /lpf (0-5); Hyaline Cast 25-50 SEEN /lpf (0-5)
[2021-12-11 19:44] LABS: Amphetamine Urine VISTA NEGATIVE (<1000 ng/mL); Barbiturate Urine VISTA NEGATIVE (< 200 ng/mL); Benzodiazepine Urine VISTA NEGATIVE (< 200 ng/mL); Cocaine Urine VISTA NEGATIVE (< 300 ng/mL); Ecstacy Urine VISTA NEGATIVE (< 500 ng/mL); Methadone Urine VISTA NEGATIVE (< 300 ng/mL); PCP Urine VISTA NEGATIVE (< 25 ng/mL); THC Urine VISTA NEGATIVE (< 50 ng/mL); Vista UDS pH Range 6
--- NOTE | 2021-12-11 20:07 | ED.RN ---
NURSING STAFF CALLED DOWN TO THE CT DEPARTMENT BECAUSE PATIENT WAS REFUSING CT SCAN AND THEN REFUSING TO GET BACK INTO WHEEL CHAIR OR HOSPITAL BED. PATIENT NOT ABLE TO BE REDIRECTED AT THIS TIME. PATIENT ARGUING WITH NURSING STAFF. PATIENT SEVERELY INTOXICATED PER LAB RESULTS. PATIENT PLACED BACK INTO WHEEL CHAIR AND KEEPS TRYING TO CRAWL OUT OF CHAIR. PATIENT WAS PLACED ON HOSPITAL BED. PATIENT FIGHTING WITH NURSING STAFF, HRO AND SECURITY AT THIS TIME. DR. ESTES IN THE ROOM. PATIENT REFUSING TO STAY IN THE BED. FOR PATIENTS SAFETY PATIENT RESTRAINED AND GIVEN IM GEODON. PATIENT FIGHTING RESTRAINTS AND NOT ABLE TO BE REDIRECTED AT THIS TIME. MONITOR PLACED ON PATIENT AT THIS TIME
[2021-12-11 20:09] VITALS: BP 179/80; PULSE 102; RESP 18; O2SAT 88
--- NOTE | 2021-12-11 20:15 | CT_ITS ---
STUDY: CT CERVICAL SPINE WITHOUT CONTRAST REASON FOR EXAM: Male, 61 years old. fall RADIATION DOSAGE (If Supplied By Facility): CTDIvol = ( 26.86 ) mGy, DLP = ( 642.46 ) mGycm TECHNIQUE: High resolution transaxial imaging was performed without contrast material. Sagittal and coronal images were reconstructed. Individualized dose optimization techniques were used for this CT. COMPARISON: 02/09/2019 FINDINGS: Normal craniovertebral junction. Normal anterior atlantoaxial articulation. Normal odontoid process. Decreased cervical lordosis. Normal vertebral bodies and posterior osseous elements. C2-3: Normal endplates. Normal disc height and morphology. Normal central canal and intervertebral neuroforamina. C3-4: Normal endplates. Normal disc height and morphology. Normal central canal. Mild left neuroforaminal encroachment secondary to bony hypertrophy C4-5: Normal endplates. Normal disc height and morphology. Normal central canal and intervertebral neuroforamina. C5-6: Narrowed disc space and mild endplate spurring.. Normal central canal and intervertebral neuroforamina. C6-7: Narrowed disc space and mild endplate spurring.. Normal central canal and intervertebral neuroforamina. C7-T1: Normal endplates. Normal disc height and morphology. Normal central canal and intervertebral neuroforamina. Normal visualized soft tissue structures. CT/Spine Cervical without Contras IMPRESSION: Mild spondylosis. No acute fracture or other significant bony pathology. Incidental finding of small nodule in the right lobe of thyroid which further assessed with ultrasound if clinically warranted Electronically Signed: Korey Dias MD at 20:41 EDT ,
--- NOTE | 2021-12-11 20:15 | CT_ITS ---
STUDY: CT BRAIN WITHOUT CONTRAST REASON FOR EXAM: Male, 61 years old. fall RADIATION DOSAGE (If Supplied By Facility): CTDIvol = ( 44.99 ) mGy, DLP = ( 863.60 ) mGycm TECHNIQUE: Transaxial CT imaging of the brain was performed without administration of intravenous contrast material. Individualized dose optimization techniques were used for this CT. COMPARISON: 02/09/2019 FINDINGS: Normal soft tissue structures. Normal calvarium. Moderate atrophy and periventricular white matter ischemic changes.. Normal basal ganglia and thalami. Normal brainstem. Normal cerebellum. There is no intracranial hemorrhage. There are no findings of an acute ischemic infarction. Postsurgical changes of the right orbit Normal visualized paranasal sinuses. CT/Brain/Head without Contrast IMPRESSION: Moderate atrophy and periventricular white matter ischemic change. No evidence for acute bleed. Electronically Signed: Korey Dias MD at 20:38 EDT ,
[2021-12-11 22:41] VITALS: PULSE 135; RESP 21
[2021-12-11 23:00] VITALS: BP 160/90; PULSE 106; RESP 18
--- NOTE | 2021-12-11 23:12 | ED.RN ---
PT VOMITTED HAD A BROWN EMESIS.COMPLETE LINEN CHANGE DONE.PT DID RESIST TURNS AND PERICARE--INCONTINIENT OF URINE. MD AWARE PT IS MORE AWAKE AND SAID,I'M NOT GOING THROUGH DT'S. MD WANTS PT WALKED.MADE HIM AWARE PT IS UNSTABLE NORMALLY WALKING. CHARGE NURSE MADE AWARE MD WANTS PT WALKING BEFORE HE CAN BE DISCHARGED. PT NOT COOPERATIVE WITH TURNS AND IS NOT GOING TO BE ABLE TO GET A RIDE.MD AWARE AND FINE WITH THAT.
[2021-12-11 23:45] VITALS: BP 160/81
--- NOTE | 2021-12-12 01:02 | ED.RN ---
0040 ATTEMPTED TO CALL PT'S MOTHER TIMES 2 TO GET A RIDE FOR THE PT OR FOR HER TO PAY FOR HIS TAXI AND THE MOTHER DID NOT ANSWER PHONE.LEFT MESSAGE FOR HER TO CALL [facility].
--- NOTE | 2021-12-12 05:04 | ED.RN ---
[facility] NOTIFIED OF NEED FOR A RIDE.
== END 2021-12-12 05:34 | disposition home or self-care (01) ==
PROVIDERS: Nurse Practitioner; Emergency Provider Student in an Organized Health Care Education/Training Program; PCP Family Medicine; Visit Provider Student in an Organized Health Care Education/Training Program
DX: Z04.3 Encounter for examination and observation following other accident (principal); F10.229 Alcohol dependence with intoxication, unspecified; Y90.8 Blood alcohol level of 240 mg/100 ml or more; J44.9 Chronic obstructive pulmonary disease, unspecified; E04.1 Nontoxic single thyroid nodule; R41.82 Altered mental status, unspecified; I10 Essential (primary) hypertension; I25.10 Atherosclerotic heart disease of native coronary artery without angina pectoris; K21.9 Gastro-esophageal reflux disease without esophagitis; F17.210 Nicotine dependence, cigarettes, uncomplicated; Z79.82 Long term (current) use of aspirin; Z79.899 Other long term (current) drug therapy; I25.2 Old myocardial infarction; Z86.73 Personal history of transient ischemic attack (TIA), and cerebral infarction without residual deficits; Z86.718 Personal history of other venous thrombosis and embolism
CPT/HCPCS: 70450; 72125; 80048; 80076; 80307; 81001; 82077; 83690; 85025; 96360; 96361; 96372; 99285; J7030; A4216; J3486

== ENCOUNTER 2021-12-12 19:24 | Emergency (ER) | payer MEDICAID, SELFPAY ==
[2021-12-12 19:31] VITALS: TEMP 36.1; BMI 28.5
[2021-12-12 19:38] VITALS: BP 140/110; PULSE 125; RESP 16; TEMP 36.1; O2SAT 93; BMI 28.5
--- NOTE | 2021-12-12 19:48 | EDS_ITS ---
HPI History of Present Illness Chief Complaint: Seizure Informant: patient and EMS Narrative Narrative: EMS reportedly called for possible seizure activity. EMS states patient was not wanting to come to the hospital but appeared intoxicated. His mother was at the scene and refused to take legal responsibility for him. At this time patient denies that he had a seizure and states there is nothing wrong. He just wants to go back home. [facility] Medical History (Updated 12/12/21 @ 21:[address] Mary Elise MD) Acute and chronic respiratory failure with hypoxia EMMANUEL (acute kidney injury) Alcohol dependence syndrome Alcohol withdrawal Alcohol withdrawal seizure Aspiration into airway Atherosclerosis of coronary artery of [place] heart without angina pectoris Bilateral inguinal hernia without obstruction or gangrene Essential hypertension Fracture of right humerus with nonunion GERD (gastroesophageal reflux disease) High anion gap metabolic acidosis History of CVA (cerebrovascular accident) History of DVT (deep vein thrombosis) History of NE (myocardial infarction) Incarcerated umbilical hernia Lactic acidemia Preop cardiovascular exam Radial nerve palsy Respiratory failure Home Medications aspirin 81 mg tablet,delayed release (Adult Low Dose Aspirin) 81 mg PO DAILY Check with primary doctor 07/04/19 [History Last Taken 03/29/20] lansoprazole 15 mg capsule,delayed release (Prevacid) 15 mg PO DAILY PRN Pain 1- 10 Or Fever 07/04/19 [History Last Taken Unknown] Allergy/AdvReac Type Severity Reaction Status Date / Time No Known Allergies Allergy Verified 03/29/20 08:18 Family History Mother Colon cancer Heart disease Father Lymphoma Heart disease Surgical History History of esophagogastroduodenoscopy (EGD) History of tonsillectomy and adenoidectomy Social History Smoking Status: Current every day smoker tobacco type: cigarettes alcohol intake: former year quit: 2019 substance use type: does not use caffeine: Yes Type: carbonated beverages Number of servings: 2 and coffee Number of servings: 6 what type of physical activity do you participate in: walking frequency: daily ROS ROS ED Constitutional Constitutional ED: Denies chills or fever(s) Eyes Eyes: Denies change in vision ENT ENT ED: Denies rhinorrhea or sore throat Cardiovascular Cardiovascular: Denies chest pain or palpitations Respiratory/Chest Respiratory/Chest: Denies dyspnea Gastrointestinal Gastrointestinal: Denies abdominal pain or vomiting Musculoskeletal Musculoskeletal: Denies back pain or neck pain Neurologic Neurologic: Denies headache(s) Psychiatric Psychiatric: Reports anxiety Allergic/Immunologic Allergic/Immunologic ED: Denies mouth swelling or tongue swelling EXAM Physical Exam Const Vital Signs: 12/12/21 19:31 12/12/21 19:38 12/12/21 21:19 Temperature 97.0 F L 97 F L Temperature Source Temporal Temporal Pulse Rate 125 H 116 H Respiratory Rate 16 19 H Blood Pressure 140/110 H 165/84 H Blood Pressure Mean 120 Pulse Ox 93 97 Oxygen Delivery Method Room Air Positive well nourished and well developed General Appearance ED: well developed HEENT Reports normocephalic and head/scalp atraumatic HEENT Narrative: No tongue injury Eyes PERRL and EOMs intact bilaterally Neck supple Chest Wall inspection of chest normal and palpation of chest normal Resp normal respiratory effort and clear to auscultation bilaterally Cardio regular rate and regular rhythm GI normal to inspection, nondistended, normoactive bowel sounds Palpation: soft Extremity normal to inspection Neuro oriented x3 and no sensory deficits noted Sensorium / Orientation: alert Motor Exam: strength 5/5 throughout Psych mental status grossly normal Skin no rashes or lesions noted MDM MDM MDM Narrative Medical decision making narrative: Patient agrees to Blood work but refuses a CT scan. He is ANO x3 this time with a normal neuro exam. Lab Data Attestation: I reviewed the patient's lab results. Labs: Laboratory Results - last 24 hr 12/12/21 12/12/21 12/12/21 20:00 20:00 20:00 WBC 4.2 L RBC 4.22 L Hgb 14.6 Hct 40.8 MCV 96.7 H MCH 34.6 H MCHC 35.8 RDW Std Deviation 44.5 H RDW Coeff of Valerio 12.7 Plt Count 88 L MPV 9.6 Immature Gran % (Auto) 0.500 Neut % (Auto) 79.4 H Lymph % (Auto) 9.2 L [place] % (Auto) 10.4 H Eos % (Auto) 0.0 Baso % (Auto) 0.5 Absolute Neuts (auto) 3.3 Absolute Lymphs (auto) 0.38 L Nucleated RBC % 0 Differential Comment SEE COMMENT Diff Path Review May foll Platelet Estimate MOD DEC RBC Morphology N CHROM Anisocytosis RARE Macrocytosis RARE Sodium 135 L Potassium 3.6 Chloride 97 L Carbon Dioxide 21.0 Anion Gap 17 H BUN 8 Creatinine 1.03 Estim Creat Clear Calc 82.66 Est GFR (MDRD) Af Amer 94 Est GFR (MDRD) Non-Af 78 BUN/Creatinine Ratio 7.8 L Glucose 194 H Calcium 9.3 Ethyl Alcohol < 3.0 Treatment and Re-Evaluation Narrative: Patient's lab work is reviewed and largely unremarkable. His alcohol level is negative. Patient does have a history of alcohol withdrawal seizures. He still does not believe he had a seizure tonight. He tells me he has not had a drink in several weeks. It is noted the patient was here yesterday with a blood alcohol level over 500. At this time patient is alert and oriented x3 and is not intoxicated. He wishes to be discharged to home. He does not want help for his drinking or any further medical testing performed. He is discharged at this time. Discharge Plan Triage Chief Complaint: Seizure ED Provider: Mary Elise Dx/Rx/DC Orders Clinical Impression: Confusion Instructions: ED ALOC Prescriptions: No Action lansoprazole [Prevacid] 15 mg capsule,delayed release(DR/EC) 15 mg PO DAILY PRN (Reason: Pain 1-10 Or Fever) aspirin [Adult Low Dose Aspirin] 81 mg tablet,delayed release (DR/EC) 81 mg PO DAILY Primary Care Provider: Adalberto Daniel Referrals: Adalberto Daniel MD [Primary Care Provider] - Activity Restrictions/Additional Instructions: EMS was called because there was concern that you may have had a seizure. You do not believe you had a seizure. You are alert and oriented at this time and her alcohol level is negative. You been stable throughout your period of observation here. He will be discharged home per your request but you are welcome to return for further treatment or care at any time. Disposition Disposition: Home, Self Care Discharge Date/Time: 12/12/21 21:22
[2021-12-12 20:19] LABS: Absolute Lymphocyte Count 0.38 X10^3/uL (0.83-4.51); Absolute Neutrophil Count 3.3 X10^3/uL (2.0-7.7); Basophil# 0.02 X10^3/uL; Basophil% 0.5 % (0-1); Hematocrit 40.8 % (40-54); Hemoglobin 14.6 g/dL (13.0-16.5); Lymphocyte # 0.38 X10^3/ul (0.83-4.51); Lymphocyte % 9.2 % (19-41); Mean Corp Hgb Conc 35.8 g/dL (32-36); Mean Corpuscular Hgb 34.6 pg (27.0-32.0); Mean Corpuscular Volume 96.7 fL (80-94); Mean Platelet Vol. 9.6 fl (6.2-12.0); Monocyte# 0.43 X10^3/uL; Monocyte% 10.4 % (0-10); NRBC Flagged by Analyzer 0 % (0-5); Neutrophil % 79.4 % (47-70); POSITIVE COUNT YES; POSITIVE DIFFERENTIAL YES; Platelet Count 88 K/mm3 (150-450); RBC Distribution Width CV 12.7 % (11.6-14.6); RBC Distribution Width SD 44.5 fl (35.1-43.9); Red Blood Count 4.22 M/mm3 (4.6-6.2); White Blood Count 4.2 K/mm3 (4.4-11.0)
[2021-12-12 20:41] LABS: Differential Indicated SCAN CRITERIA MET
[2021-12-12 20:42] LABS: Alcohol, Blood (Medical)-Serum < 3.0 mg/dL; Anion Gap 17 (5-15); BUN 8 mg/dL (7-18); BUN/Creat Ratio 7.8 RATIO (10-20); Calcium,Total 9.3 mg/dL (8.5-10.1); Chloride 97 mmol/L (98-107); Creatinine, Serum 1.03 mg/dL (0.70-1.30); EST Glomerular Filtration Rate 78 mL/min (>60); Est Glom Filt Rate - Afr Amer 94 mL/min (>60); Estimated Creatinine Clearance 82.66 ml/min; Glucose 194 mg/dL (74-106); Potassium 3.6 mmol/L (3.5-5.1); Sodium Level 135 mmol/L (136-145)
[2021-12-12 20:44] LABS: Anisocytosis RARE; Macrocytosis RARE; Platelet Estimate MOD DEC (ADEQ); Red Cell Morphology N CHROM NORMAL (NORM C&C)
[2021-12-12 21:19] VITALS: BP 165/84; PULSE 116; RESP 19; O2SAT 97
[2021-12-16 15:18] LABS: Pathologist Review Reviewed
== END 2021-12-12 21:22 | disposition home or self-care (01) ==
PROVIDERS: Emergency Provider Emergency Medicine; PCP Family Medicine; Visit Provider Emergency Medicine
DX: R41.0 Disorientation, unspecified (principal); I25.10 Atherosclerotic heart disease of native coronary artery without angina pectoris; I10 Essential (primary) hypertension; K21.9 Gastro-esophageal reflux disease without esophagitis; F17.210 Nicotine dependence, cigarettes, uncomplicated; Z79.82 Long term (current) use of aspirin; I25.2 Old myocardial infarction; Z86.73 Personal history of transient ischemic attack (TIA), and cerebral infarction without residual deficits; Z86.718 Personal history of other venous thrombosis and embolism
CPT/HCPCS: 80048; 82077; 85025; 99285

== ENCOUNTER 2022-05-17 14:48 | Emergency (ER) | payer MEDICAID, SELFPAY ==
--- NOTE | 2022-05-17 14:50 | ED.RN ---
pt attempting to crawl out of bed, refusing to stay in bed, getting combative with staff. pt is under the influence of alcohol. SO with pt when brought via ems. Dr. Kramer called to the patients room for evaluation.
[2022-05-17 14:52] VITALS: PULSE 146; RESP 24; TEMP 36.2; O2SAT 93; BMI 31.9
--- NOTE | 2022-05-17 15:00 | ED.RN ---
Addendum entered by Kasey Gayle 05/17/22 18:03: per Dr. Kramer given verbal order to apply locked restraints at 1455. Original Note: upon arrival pt was was refusing to listen to law enforcement or nursing staff. pt was trying to crawl out of pt. pt is unstable on his feet due to alcohol intoxication. Restraints applied at 1455. law enforce at bedside.
[2022-05-17 15:05] VITALS: PULSE 110; RESP 20; O2SAT 94
[2022-05-17] MEDS: LORazepam 2 MG/ML Syringe IM (15:09)
[2022-05-17 15:50] LABS: Absolute Lymphocyte Count 0.99 X10^3/uL (0.83-4.51); Absolute Neutrophil Count 1.6 X10^3/uL (2.0-7.7); Basophil# 0.05 X10^3/uL; Basophil% 1.6 % (0-1); Eosinophil# 0.02 X10^3/uL; Eosinophils% 0.6 % (0-5); Hemoglobin 13.5 g/dL (13.0-16.5); Lymphocyte # 0.99 X10^3/ul (0.83-4.51); Lymphocyte % 31.1 % (19-41); Mean Corp Hgb Conc 36.5 g/dL (32-36); Mean Corpuscular Hgb 37.4 pg (27.0-32.0); Mean Corpuscular Volume 102.5 fL (80-94); Mean Platelet Vol. 8.8 fl (6.2-12.0); Monocyte# 0.52 X10^3/uL; Monocyte% 16.4 % (0-10); NRBC Flagged by Analyzer 0 % (0-5); Neutrophil # 1.59 X10^3/uL (2.7-7.7); POSITIVE COUNT YES; Platelet Count 93 K/mm3 (150-450); RBC Distribution Width CV 13.2 % (11.6-14.6); RBC Distribution Width SD 49.8 fl (35.1-43.9); Red Blood Count 3.61 M/mm3 (4.6-6.2); White Blood Count 3.2 K/mm3 (4.4-11.0)
[2022-05-17 16:07] LABS: Anion Gap 16 (5-15); BUN 11 mg/dL (7-18); BUN/Creat Ratio 14.2 RATIO (10-20); Chloride 101 mmol/L (98-107); Creatinine, Serum 0.78 mg/dL (0.70-1.30); EST Glomerular Filtration Rate 108 mL/min (>60); Est Glom Filt Rate - Afr Amer 131 mL/min (>60); Estimated Creatinine Clearance 107.78 ml/min; Glucose 106 mg/dL (74-106); Potassium 2.7 mmol/L (3.5-5.1); Sodium Level 141 mmol/L (136-145)
--- NOTE | 2022-05-17 17:00 | ED.RN ---
pt dropped to 2 pt restraint
--- NOTE | 2022-05-17 17:40 | EDS_ITS ---
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 Police were called as the patient was agitated at home. Police felt that the patient was unsafe to be at home by himself and brought the patient to the emergency department. Patient is agitated and combative on examination. Patient denies any suicidal homicidal ideations. Patient is a very poor informant. [facility] Medical History (Updated 05/17/22 @ 21:[address] Ino Kramer DO) Acute and chronic respiratory failure with hypoxia EMMANUEL (acute kidney injury) Alcohol dependence syndrome Alcohol withdrawal Alcohol withdrawal seizure Aspiration into airway Atherosclerosis of coronary artery of [place] heart without angina pectoris Bilateral inguinal hernia without obstruction or gangrene Essential hypertension Fracture of right humerus with nonunion GERD (gastroesophageal reflux disease) High anion gap metabolic acidosis History of CVA (cerebrovascular accident) History of DVT (deep vein thrombosis) History of CT (myocardial infarction) Incarcerated umbilical hernia Lactic acidemia Preop cardiovascular exam Radial nerve palsy Respiratory failure Home Medications aspirin 81 mg tablet,delayed release (Adult Low Dose Aspirin) 81 mg PO DAILY Check with primary doctor 07/04/19 [History Last Taken 03/29/20] lansoprazole 15 mg capsule,delayed release (Prevacid) 15 mg PO DAILY PRN Pain 1-10 Or Fever 07/04/19 [History Last Taken Unknown] Allergy/AdvReac Type Severity Reaction Status Date / Time No Known Allergies Allergy Verified 05/17/22 14:57 Family History Mother Colon cancer Heart disease Father Lymphoma Heart disease Surgical History History of esophagogastroduodenoscopy (EGD) History of tonsillectomy and adenoidectomy Social History Smoking Status: Current every day smoker tobacco type: cigarettes alcohol intake: former year quit: 2018 substance use type: does not use caffeine: Yes Type: carbonated beverages Number of servings: 2 and coffee Number of servings: 6 what type of physical activity do you participate in: walking frequency: daily ROS ROS ED Review of Systems ROS Unobtainable: due to mental condition and due to mental status EXAM Physical Exam Const Vital Signs: 05/17/22 14:52 05/17/22 15:05 05/17/22 20:00 Temperature 97.1 F L Temperature Source Temporal Pulse Rate 146 H 110 H 94 Respiratory Rate 24 H 20 H 18 Blood Pressure 137/66 H Blood Pressure Mean 89 Pulse Ox 93 94 94 Oxygen Delivery Method Room Air Room Air Room Air Positive well nourished, well developed and obese General Appearance ED: well developed and NAD Nutritional Appearance: obese HEENT Reports moist mucous membranes Neck supple and no JVD Resp normal respiratory effort and clear to auscultation bilaterally Cardio regular rate, regular rhythm and no murmurs GI normal to inspection, nondistended, normoactive bowel sounds and non-tender Palpation: soft Extremity normal to inspection General Extremety ED: Negative for edema or tenderness General Extremity: Negative for edema Neuro CN's II-XII intact bilaterally and no sensory deficits noted Sensorium / Orientation: alert Motor Exam: strength 5/5 throughout Skin no rashes or lesions noted MDM MDM MDM Narrative Medical decision making narrative: Patient was given a dose of Ativan here. CBC shows a white blood cell count 3.2. Basic metabolic profile showed a potassium of 2.7. Serum alcohol level was elevated at 484. Urine tox screen was negative. Patient was given a dose of oral potassium. Patient was improving after the initial dose of Ativan. Patient then started becoming more combative and agitated again. Patient was given a repeat dose of Ativan. Patient will be observed in the emergency department till he is more awake and alert and clinically sober. Patient was given resources for 180. Patient was instructed to follow-up there when he decides he wants to quit drinking. Patient understood and was agreeable with the plan. All questions were answered. Lab Data Attestation: I reviewed the patient's lab results. Labs: Laboratory Results - last 24 hr 05/17/22 05/17/22 05/17/22 15:35 15:35 15:35 WBC 3.2 L RBC 3.61 L Hgb 13.5 Hct 37.0 L MCV 102.5 H MCH 37.4 H MCHC 36.5 H RDW Std Deviation 49.8 H RDW Coeff of Valerio 13.2 Plt Count 93 L MPV 8.8 Immature Gran % (Auto) 0.300 Neut % (Auto) 50.0 Lymph % (Auto) 31.1 [place] % (Auto) 16.4 H Eos % (Auto) 0.6 Baso % (Auto) 1.6 H Absolute Neuts (auto) 1.6 L Absolute Lymphs (auto) 0.99 Nucleated RBC % 0 Sodium 141 Potassium 2.7 L* Chloride 101 Carbon Dioxide 24.0 Anion Gap 16 H BUN 11 Creatinine 0.78 Estim Creat Clear Calc 107.78 Est GFR (MDRD) Af Amer 131 Est GFR (MDRD) Non-Af 108 BUN/Creatinine Ratio 14.2 Glucose 106 Calcium 8.0 L Urine Opiates Screen Urine Methadone Screen Ur Barbiturates Screen Ur Phencyclidine Scrn Ur Amphetamines Screen MDMA (Ecstasy) Screen U Benzodiazepines Scrn Urine Cocaine Screen U Cannabinoids Screen Ur Drug Screen Comment Ethyl Alcohol 484.0 H* 05/17/22 19:50 WBC RBC Hgb Hct MCV MCH MCHC RDW Std Deviation RDW Coeff of Valerio Plt Count MPV Immature Gran % (Auto) Neut % (Auto) Lymph % (Auto) [place] % (Auto) Eos % (Auto) Baso % (Auto) Absolute Neuts (auto) Absolute Lymphs (auto) Nucleated RBC % Sodium Potassium Chloride Carbon Dioxide Anion Gap BUN Creatinine Estim Creat Clear Calc Est GFR (MDRD) Af Amer Est GFR (MDRD) Non-Af BUN/Creatinine Ratio Glucose Calcium Urine Opiates Screen NEGATIVE Urine Methadone Screen NEGATIVE Ur Barbiturates Screen NEGATIVE Ur Phencyclidine Scrn NEGATIVE Ur Amphetamines Screen NEGATIVE MDMA (Ecstasy) Screen NEGATIVE U Benzodiazepines Scrn NEGATIVE Urine Cocaine Screen NEGATIVE U Cannabinoids Screen NEGATIVE Ur Drug Screen Comment Ethyl Alcohol Discharge Plan Triage Chief Complaint: ETOH Intox ED Provider: Ino Kramer Dx/Rx/DC Orders Clinical Impression: Alcohol intoxication, Alcohol dependence syndrome, Agitation Instructions: ED Alcohol Intoxication, ED Alcohol Abuse Prescriptions: No Action lansoprazole [Prevacid] 15 mg capsule,delayed release(DR/EC) 15 mg PO DAILY PRN (Reason: Pain 1-10 Or Fever) aspirin [Adult Low Dose Aspirin] 81 mg tablet,delayed release (DR/EC) 81 mg PO DAILY Primary Care Provider: Adalberto Daniel Referrals: Adalberto Daniel MD [Primary Care Provider] - 5-7 Days [facility] [Non-Staff] - 3-5 Days Disposition Disposition: Home, Self Care
--- NOTE | 2022-05-17 17:45 | ED.RN ---
restraints removed pt. resting in bed
--- NOTE | 2022-05-17 18:39 | ED.RN ---
PTS MOTHER CALLED AND ASKED FOR A PATIENT UPDATE. SHE WAS INFORMED PATIENT WAS WAITING FOR LAB RESULTS AND BEING OBSERVED. WHEN ASKED WHAT THE PLAN WAS IF HE GETS D/C'D THE PATIENT'S MOTHER RESPONDS HE NEEDS TO COME HOME. IT'S HIS HOME. WHEN ASKED HOW HE WOULD BE GETTING HOME SHE STATES A TAXI OR WHATEVER YOU PEOPLE DO AT NIGHT.
[2022-05-17] MEDS: Potassium Chloride Oral Tablet 20 MEQ 40 MEQ PO (19:45)
[2022-05-17] MEDS: LORazepam 2 MG/ML Syringe IV (19:59)
[2022-05-17 20:00] VITALS: BP 137/66; PULSE 94; RESP 18; O2SAT 94
--- NOTE | 2022-05-17 20:00 | NURSING ---
pt awake and trying to climb out of bed repeatly stating Im leaving to go home. This nurse attempted to educate pt need for urine sample and not safe due to pt ETOH level at this time. pt gait unsteady and several attempts to leave. updated 2mg Ativan ordered pt currently resting in bed. call light within reach.
[2022-05-17 20:32] LABS: Amphetamine Urine VISTA NEGATIVE (<1000 ng/mL); Barbiturate Urine VISTA NEGATIVE (< 200 ng/mL); Benzodiazepine Urine VISTA NEGATIVE (< 200 ng/mL); Cocaine Urine VISTA NEGATIVE (< 300 ng/mL); Ecstacy Urine VISTA NEGATIVE (< 500 ng/mL); Methadone Urine VISTA NEGATIVE (< 300 ng/mL); PCP Urine VISTA NEGATIVE (< 25 ng/mL); THC Urine VISTA NEGATIVE (< 50 ng/mL); Vista UDS pH Range 6
[2022-05-18] MEDS: LORazepam 2 MG/ML Syringe IM (01:56)
[2022-05-18 02:04] VITALS: BP 129/73; PULSE 110; RESP 18; O2SAT 95
[2022-05-18 06:57] VITALS: BP 130/76; PULSE 98; RESP 16; O2SAT 97
== END 2022-05-18 06:59 | disposition home or self-care (01) ==
PROVIDERS: Emergency Provider Emergency Medicine; PCP Family Medicine; Visit Provider Emergency Medicine
DX: F10.229 Alcohol dependence with intoxication, unspecified (principal); I25.10 Atherosclerotic heart disease of native coronary artery without angina pectoris; F17.210 Nicotine dependence, cigarettes, uncomplicated; I25.2 Old myocardial infarction; E66.9 Obesity, unspecified; Z86.73 Personal history of transient ischemic attack (TIA), and cerebral infarction without residual deficits; Z86.718 Personal history of other venous thrombosis and embolism
CPT/HCPCS: 99284; 80048; 80307; 80320; 96372 ×2; 96374; 85025; 82077

== ENCOUNTER 2022-05-19 15:18 | Inpatient (IN) | payer MEDICAID, SELFPAY ==
[2022-05-19] VITALS (20 sets, daily range): BP systolic 78–155; BP diastolic 54–102; PULSE 98–158; RESP 14–22; TEMP 36–37.7; O2SAT 92–100; BMI 31.3; BMI 31.5
--- NOTE | 2022-05-19 15:29 | EKG12_ITS ---
Test Reason : SOB Blood Pressure : / mmHG Vent. Rate : 149 BPM Atrial Rate : 000 BPM P-R Int : 000 ms QRS Dur : 068 ms QT Int : 318 ms P-R-T Axes : 000 032 054 degrees QTc Int : 500 ms Supraventricular tachycardia Otherwise normal ECG Confirmed by ARASELI FLOYD, MOLLY ([id number]), writer editor RADHA KIM ([id number]) on 05/21/2022 9:46:03 AM Referred By: Confirmed By:MOLLY MARX MD
--- NOTE | 2022-05-19 15:37 | CM.ED ---
Addendum entered by Malika Hernandez 05/19/22 15:59: KG spoke to Officer Shimon Jesus from [facility]. Original Note: KG SAUL met with [facility] who report the following concerns regarding patient. Patient resides with his mom, who is in her 80's. Per EMS patient does not want to help himself. EMS called to the house 2x and this run patient was sitting in his own feces but able to get up. Per EMS patient is not able to walk, due to a medical reason. EMS reports that the patient has a hernia the size of a basketball but refuses to have surgery. Per EMS patient is not able to care for self. Patient's deterioration has increased in the past 1 month. In the month of May the EMS has been called 5 times this months and the paper machine tender were called 16 times per month as patient gets in fights with his mom and is verbally abusive. KG called and left voice mail message for Greyson at [facility]. Malika LABOY
--- NOTE | 2022-05-19 16:02 | CT_ITS ---
EXAM: CT HEAD WITHOUT INTRAVENOUS CONTRAST CLINICAL INDICATION: AMS TECHNIQUE: Multiple axial images were obtained of the head without intravenous contrast. This CT exam was performed using one or more of the following dose reduction techniques: automated exposure control, adjustment of the mA and/or kV according to patient size, and/or use of iterative reconstruction technique. This report was created using [employer] report generation technology. COMPARISON: 12/11/2021 FINDINGS: ARTIFACTS: There is motion artifact on several images. BRAIN AND EXTRA-AXIAL SPACES: There is enlargement of the ventricular system and cortical sulci. There is hypoattenuation in the periventricular white matter. No intra- or extra-axial hemorrhage. No evidence of acute infarct. No intracranial mass or mass effect. There is preservation of the hicks/white matter interface. Posterior fossa structures are unremarkable. Basal cisterns are patent. BONES/JOINTS: Unremarkable. No discrete lytic or blastic abnormalities. SINUSES: Unremarkable as visualized. Clear. MASTOID AIR CELLS: Unremarkable. Clear. ORBITS: Visualized globes, extraocular muscles, optic nerves and retrobulbar fat appear unremarkable. CT/Brain/Head without Contrast IMPRESSION: 1. Limited study due to motion artifact. There is no acute intracranial abnormality. There has been no significant change from reference exam. 2. Stable underlying senescent change with small vessel ischemia. Electronically Signed: Stepan Christopher MD at 17:47 EST ,
[2022-05-19] MEDS: 0.9% Normal Saline 1,000 ML 1000 ML IV (16:18)
[2022-05-19 16:20] LABS: Absolute Lymphocyte Count 1.42 X10^3/uL (0.83-4.51); Absolute Neutrophil Count 4.7 X10^3/uL (2.0-7.7); Basophil# 0.04 X10^3/uL; Basophil% 0.5 % (0-1); Eosinophil# 0.01 X10^3/uL; Eosinophils% 0.1 % (0-5); Hematocrit 40.5 % (40-54); Hemoglobin 14.2 g/dL (13.0-16.5); Lymphocyte # 1.42 X10^3/ul (0.83-4.51); Mean Corp Hgb Conc 35.1 g/dL (32-36); Mean Corpuscular Hgb 37.3 pg (27.0-32.0); Mean Corpuscular Volume 106.3 fL (80-94); Monocyte% 16.1 % (0-10); NRBC Flagged by Analyzer 0.3 % (0-5); Neutrophil # 4.72 X10^3/uL (2.7-7.7); Neutrophil % 63.2 % (47-70); Platelet Count 116 K/mm3 (150-450); RBC Distribution Width CV 13.1 % (11.6-14.6); Red Blood Count 3.81 M/mm3 (4.6-6.2); White Blood Count 7.5 K/mm3 (4.4-11.0)
[2022-05-19 16:46] LABS: ALB/GLOB Ratio 0.9 RATIO (0.9-2.4); AST(SGOT) 59 U/L (15-37); Alanine Aminotransfer ALT/SGPT 44 U/L (16-61); Albumin, Serum 3.6 g/dL (3.2-5.0); Alkaline Phosphatase 76 U/L (45-117); Anion Gap 22 (5-15); BUN 9 mg/dL (7-18); BUN/Creat Ratio 6.4 RATIO (10-20); Calcium,Total 9.3 mg/dL (8.5-10.1); Chloride 92 mmol/L (98-107); EST Glomerular Filtration Rate 55 mL/min (>60); Est Glom Filt Rate - Afr Amer 66 mL/min (>60); Estimated Creatinine Clearance 60.05 ml/min; Globulin 3.8 g/dL (2.2-4.2); Glucose 181 mg/dL (74-106); Lipase 112 U/L (73-393); Magnesium 1.9 mg/dL (1.6-2.6); Potassium 2.8 mmol/L (3.5-5.1); Protein, Total 7.4 g/dL (6.4-8.2); Sodium Level 132 mmol/L (136-145); Troponin-I HS (w/2H Reflex) 16 pg/mL (3.0-78.0)
[2022-05-19] MEDS: LORazepam 2 MG/ML Syringe 1 MG IV ×2 (17:09→18:11)
--- NOTE | 2022-05-19 17:30 | RAD_ITS ---
EXAM: XR CHEST, 1 VIEW CLINICAL INDICATION: arrythmia TECHNIQUE: Frontal view of the chest. This report was created using [employer] report generation technology. COMPARISON: 02/10/2019 FINDINGS: LUNGS AND PLEURAL SPACES: Unremarkable. No consolidation or edema. No pneumothorax. No effusion. HEART: Unremarkable. Cardiac silhouette not enlarged. MEDIASTINUM: There is a hiatal hernia present. BONES/JOINTS: Unremarkable. SOFT TISSUES: Unremarkable. RAD/Chest 1 View (Portable) IMPRESSION: No acute findings in the chest. Electronically Signed: Stepan Christopher MD at 18:03 EST ,
[2022-05-19 18:10] LABS: Reflex Troponin-HS? (from REC) Y
--- NOTE | 2022-05-19 18:18 | ED.RN ---
pt. placed in soft bilateral wrist restraints for safety while intubated.
--- NOTE | 2022-05-19 18:18 | ED.RN ---
At approx. 1818 after this RN left patients room pt. began to get out of bed while all lines and tubes were still attached. This RN heard noise in the room and witnessed pt. walking very unsteadily and losing balance to fall backward landing on his bottom. Pt. was uncooperative with staff to assist him in getting up. Kept stating get me a cab I am leaving this place. Pt. began to shake but was still responding and requesting to leave. Pt. face then became purple and was clearly not oxygenating. Multiple staff members got pt. placed on an EMS mat and lifted pt. into bed. Dr Harris also present immediately after fall. D/T breathing difficulty Dr. Harris requested RSI box to intubate patient to maintain safe airway/ 1817-fall 1819 Dr. Harris at bedside to witness scene 1822- 2mg Ativan given IV, RSI box requested and brought to bedside 1827-2 mg Ativan given IV 183- pt. placed back on all monitor and bagged with 100% O2 1834- 20 mg etomidate given IV, vitals 116/98, HR 142, 94% oxygen 1835- 100 vecuronium given IV 1837- 8.0 ET tube placed by dr. Harris, 26 at teeth, positive color change 8- OG placed by Dr. Harris with dark, blood tinged output
[2022-05-19] MEDS: LORazepam 2 MG/ML Syringe IV ×2 (18:25→18:27)
[2022-05-19] MEDS: Etomidate 20 MG/10 ML Vial IV (18:34)
[2022-05-19] MEDS: Rocuronium Bromide 50 MG/5 ML Vial 100 MG IV (18:35)
--- NOTE | 2022-05-19 18:42 | CT_ITS ---
EXAM: CT ABDOMEN AND PELVIS WITH INTRAVENOUS CONTRAST CLINICAL INDICATION: trauma, multiple falls, hx ETOH, inguinal hernia. TECHNIQUE: Helically acquired images were obtained of the abdomen and pelvis with intravenous contrast. This CT exam was performed using one or more of the following dose reduction techniques: automated exposure control, adjustment of the mA and/or kV according to patient size, and/or use of iterative reconstruction technique. This report was created using [employer] report generation technology. CONTRAST: IV 100mL Isovue-300 COMPARISON: None. FINDINGS: LOWER THORAX: There is consolidation in both lung bases which may represent atelectasis or pneumonia. No cardiomegaly. No significant pericardial effusion. ABDOMEN: LIVER: The liver is diffusely decreased in attenuation compatible with fatty infiltration. GALLBLADDER AND BILE DUCTS: There are multiple gallstones present but no inflammation. No gallbladder distention or wall edema. No intra- or extrahepatic biliary ductal dilation. PANCREAS: Unremarkable. No focal cystic or solid mass. SPLEEN: Unremarkable. Normal size without focal cystic or solid mass. ADRENALS: Unremarkable. No nodules. KIDNEYS AND URETERS: Unremarkable. Normal renal size and position. No hydronephrosis. STOMACH AND BOWEL: There is a large hernia which contains loops of large and small bowel. No stomach or bowel distention. No focal inflammatory change. PELVIS: APPENDIX: No evidence of acute appendicitis. BLADDER: Unremarkable. REPRODUCTIVE: Unremarkable as visualized. No mass. ABDOMEN and PELVIS: INTRAPERITONEAL SPACE: Unremarkable. No ascites or other fluid collection. No free air. BONES/JOINTS: Unremarkable. No suspicious lytic or blastic abnormality. SOFT TISSUES: There is an umbilical hernia which contains mesenteric fat. VASCULATURE: Unremarkable. Abdominal aorta is non-dilated. LYMPH NODES: Unremarkable. No enlarged lymph nodes. TUBES, LINES AND DEVICES: Kirk catheter in place. CT/Abdomen/Pelvis W IV Cont ONLY IMPRESSION: 1. Large right inguinal hernia with loops of large and small bowel in the hernia sac. 2. Bilateral lower lobe consolidation which may represent atelectasis or pneumonia. Electronically Signed: Stepan Christopher MD at 20:06 EST ,
[2022-05-19 18:43] LABS: Troponin-I HS 25 pg/mL (3.0-78.0)
--- NOTE | 2022-05-19 18:47 | EDS_ITS ---
HPI History of Present Illness Chief Complaint: Fall Informant: patient and EMS Narrative Narrative: Patient is a 62 year old male with history of alcohol dependace, CAD, aspiration, nicotine use and large inguinal hernia preesenting via EMS for weakness and fall. The EMS had been called out to the patient's house 3 times today for lift assist and falls. Patient had refused transfer the first 2 times. The third time patient was found facedown in his own vomit. There was concern for the patient being purple/blue. Patient eventually agreed to transport. Patient lives with his mother. Patient has had multiple ER visits for alcohol intoxication most recently 2 days ago. At that time his alcohol level was 484. All patient can tell me right now is that he does not want to be here and he wants to go home. Initially he thought he was at home. Patient told me it was Wednesday (it is Wednesday) however he knows the month and president. He did not know the year. [facility] Medical History (Updated 05/19/22 @ 20:[address] Shwetha Harris DO) Acute and chronic respiratory failure with hypoxia EMMANUEL (acute kidney injury) Alcohol dependence syndrome Alcohol withdrawal Alcohol withdrawal seizure Aspiration into airway Atherosclerosis of coronary artery of lummi heart without angina pectoris Bilateral inguinal hernia without obstruction or gangrene Essential hypertension Fracture of right humerus with nonunion GERD (gastroesophageal reflux disease) High anion gap metabolic acidosis History of CVA (cerebrovascular accident) History of DVT (deep vein thrombosis) History of [place] (myocardial infarction) Incarcerated umbilical hernia Lactic acidemia Preop cardiovascular exam Radial nerve palsy Respiratory failure Home Medications aspirin 81 mg tablet,delayed release (Adult Low Dose Aspirin) 81 mg PO DAILY Check with primary doctor 07/04/19 [History Last Taken 03/29/20] lansoprazole 15 mg capsule,delayed release (Prevacid) 15 mg PO DAILY PRN Pain 1- 10 Or Fever 07/04/19 [History Last Taken Unknown] Allergy/AdvReac Type Severity Reaction Status Date / Time No Known Allergies Allergy Verified 05/17/22 14:57 Family History Mother Colon cancer Heart disease Father Lymphoma Heart disease Surgical History History of esophagogastroduodenoscopy (EGD) History of tonsillectomy and adenoidectomy Social History Smoking Status: Current every day smoker tobacco type: cigarettes alcohol intake: former year quit: 2019 substance use type: does not use caffeine: Yes Type: carbonated beverages Number of servings: 2 and coffee Number of servings: 6 what type of physical activity do you participate in: walking frequency: daily ROS ROS ED Review of Systems ROS Unobtainable: due to mental status EXAM Physical Exam Const Vital Signs: 05/19/22 15:28 05/19/22 15:33 05/19/22 17:11 Temperature 96.8 F L Temperature Source Temporal Pulse Rate 148 H 119 H Respiratory Rate 20 H 22 H Respiratory Effort Normal Respiratory Depth Normal Respiratory Pattern Normal Blood Pressure 146/87 H 155/92 H Blood Pressure Mean 106 113 Pulse Ox 94 92 Oxygen Delivery Method Room Air Room Air Fraction of Inspired Oxygen (FIO2) 05/19/22 18:11 05/19/22 18:15 05/19/22 19:01 Temperature Temperature Source Pulse Rate 120 H 158 H Respiratory Rate 20 H 16 Respiratory Effort Respiratory Depth Respiratory Pattern Blood Pressure 148/102 H 151/90 H Blood Pressure Mean 117 110 Pulse Ox 95 96 Oxygen Delivery Method Room Air Mechanical Ventilator Fraction of Inspired Oxygen (FIO2) 60 05/19/22 18:55 05/19/22 19:30 05/19/22 19:45 Temperature Temperature Source Pulse Rate 158 H 130 H 117 H Respiratory Rate 17 18 18 Respiratory Effort Respiratory Depth Respiratory Pattern Normal Blood Pressure 130/81 H 148/81 H Blood Pressure Mean 97 103 Pulse Ox 97 100 100 Oxygen Delivery Method Mechanical Ventilator Mechanical Ventilator Fraction of Inspired Oxygen (FIO2) 60 05/19/22 20:00 05/19/22 20:28 05/19/22 20:30 Temperature Temperature Source Pulse Rate 115 H 123 H 111 H Respiratory Rate 18 17 16 Respiratory Effort Respiratory Depth Respiratory Pattern Blood Pressure 136/83 H 126/87 H 127/90 H Blood Pressure Mean 100 100 102 Pulse Ox 98 94 92 Oxygen Delivery Method Mechanical Ventilator Mechanical Ventilator Mechanical Ventilator Fraction of Inspired Oxygen (FIO2) Positive well nourished and well developed Constitutional Narrative: Tremulous General Appearance ED: well developed; Negative for pallor HEENT Reports TM's clear and moist mucous membranes Negative for trauma Tympanic Membrane ED: Yes TM's clear Eyes EOMs intact bilaterally Eyes Narrative: Nonreactive pupil on the right eye?patient states this is chronic from a prior injury as a child Neck supple and no JVD Neck Narrative: No midline tenderness Chest Wall inspection of chest normal and palpation of chest normal Chest Narrative: Bruising noted on the anterior left chest wall Resp normal respiratory effort and clear to auscultation bilaterally Cardio regular rhythm and no murmurs Rate: tachycardic GI normal to inspection, nondistended, normoactive bowel sounds GI Narrative: Large but soft inguinal hernia present. No overlying erythema or skin changes. Ecchymosis noted to the right flank. Narrative: Right testicular swelling, see above Back/Spine no CVA tenderness Extremity normal to inspection Extremity Narrative: Erythema over bilateral anterior knees consistent with pressure wounds General Extremety ED: Negative for edema or tenderness General Extremity: Negative for edema Neuro Neuro Narrative: Tremulous, generally weak Sensorium / Orientation: alert and orientation impaired Psych Attitude: agitated Skin Skin Narrative: Excoriations to the buttocks noted. Diaphoretic General Skin Exam: Negative for jaundice or pallor MDM MDM MDM Narrative Medical decision making narrative: Patient is evaluated for generalized weakness and falls. Initially patient is agitated and ANO x2. He is given IV Ativan as he is tachycardic and I am concerned that he could have some sort of traumatic/metabolic work-up. Further his altered mental status not sure if he is going into alcohol withdrawal or is acutely intoxicated. Alcohol level is negative at this time. I presume patient is going into DTs. EKG is a sinus tachycardia which does seem to improve with fluid resuscitation. When patient came back from CT he then tried to crawl out of bed and was too weak to stand so he fell to the ground. He has had did not hit the ground and his buttocks did. Patient then had episode of generalized tonic-clonic seizure activity and was quite tremulous after this. Patient was got back in the bed and had sonorous respirations. He is received multiple doses of IV Ativan for DTs. Decision made to intubate for airway protection as patient does not harm himself further. Patient is given IV etomidate, 20 mg and 100 mg of IV rocuronium. He started on propofol drip and versed. Patient tolerated this well. When NG tube was placed he had coffee-ground emesis out. Patient started on Protonix drip. He will be admitted to the ICU. CT of the abdomen pelvis is obtained which does not show an acute traumatic or intra- abdominal process. He is instantly found to have bilateral lower lobe consolidation which could represent pneumonia. Given this aspiration picture will cover with Unasyn for aspiration. In addition patient is found to have hypokalemia with a potassium of 2.8 and started on replacement. His magnesium is normal. His creatinine is doubled from 2 days ago at 1.40 and his CK is elevated at 2001. He is given a liter of IV fluid bolus and started on maintenance and a half of normal saline for rhabdomyolysis. Patient's mother is informed of the patient's condition and plan of care. Patient is admitted to the ICU. Initial chest x-ray interpreted by myself as well as radiology does not show an acute process. This is repeated after intubation and is interpreted myself shows adequate positioning of the ET tube as well as NG tube and the stomach just past the GE junction. Lab Data Attestation: I reviewed the patient's lab results. Labs: Laboratory Results - last 24 hr 05/19/22 05/19/22 05/19/22 15:35 15:35 15:35 WBC 7.5 RBC 3.81 L Hgb 14.2 Hct 40.5 MCV 106.3 H MCH 37.3 H MCHC 35.1 RDW Std Deviation 51.0 H RDW Coeff of Valerio 13.1 Plt Count 116 L MPV 10.0 Immature Gran % (Auto) 1.100 H Neut % (Auto) 63.2 Lymph % (Auto) 19.0 [place] % (Auto) 16.1 H Eos % (Auto) 0.1 Baso % (Auto) 0.5 Absolute Neuts (auto) 4.7 Absolute Lymphs (auto) 1.42 Nucleated RBC % 0.3 Sodium 132 L Potassium 2.8 L Chloride 92 L Carbon Dioxide 18.0 L Anion Gap 22 H BUN 9 Creatinine 1.40 H Estim Creat Clear Calc 60.05 Est GFR (MDRD) Af Amer 66 Est GFR (MDRD) Non-Af 55 L BUN/Creatinine Ratio 6.4 L Glucose 181 H Calcium 9.3 Magnesium 1.9 Total Bilirubin 2.60 H AST 59 H ALT 44 Alkaline Phosphatase 76 Total Creatine Kinase Troponin I High Sens 16 Total Protein 7.4 Albumin 3.6 Globulin 3.8 Albumin/Globulin Ratio 0.9 Lipase 112 Urine Color Urine Clarity Urine pH Ur Specific [place] Urine Protein Urine Glucose (UA) Urine Ketones Urine Occult Blood Urine Nitrite Urine Bilirubin Urine Urobilinogen Ur Leukocyte Esterase Urine RBC Urine WBC Ur Squamous Epith Cells Urine Bacteria Urine Mucus Ethyl Alcohol 5.0 05/19/22 05/19/22 05/19/22 18:16 18:16 18:45 WBC RBC Hgb Hct MCV MCH MCHC RDW Std Deviation RDW Coeff of Valerio Plt Count MPV Immature Gran % (Auto) Neut % (Auto) Lymph % (Auto) [place] % (Auto) Eos % (Auto) Baso % (Auto) Absolute Neuts (auto) Absolute Lymphs (auto) Nucleated RBC % Sodium Potassium Chloride Carbon Dioxide Anion Gap BUN Creatinine Estim Creat Clear Calc Est GFR (MDRD) Af Amer Est GFR (MDRD) Non-Af BUN/Creatinine Ratio Glucose Calcium Magnesium Total Bilirubin AST ALT Alkaline Phosphatase Total Creatine Kinase 2002 H Troponin I High Sens 25 Total Protein Albumin Globulin Albumin/Globulin Ratio Lipase Urine Color Jacqueline Urine Clarity Sl. Cloudy Urine pH 8.0 Ur Specific [place] 1.015 Urine Protein 30 H Urine Glucose (UA) 50 H Urine Ketones 50 H Urine Occult Blood 150 H Urine Nitrite Negative Urine Bilirubin Negative Urine Urobilinogen 8 H Ur Leukocyte Esterase 25 H Urine RBC 0 SEEN Urine WBC 0-5 SEEN Ur Squamous Epith Cells 0 SEEN Urine Bacteria 3+ Urine Mucus 0 SEEN Ethyl Alcohol ABG Data ABG results: ABG 05/19/22 19:26 Specimen Type ART Sample Site R Brach pH 7.34 L Bicarbonate Actual 23.5 Total CO2 25 Base Excess -2 O2 Saturation 97 O2 % 60 ABG pCO2 43.5 ABG pO2 101 H Jostin Test Positive Respiration Rate 14 O2 Delivery Device Adult Vent Vent Mode AC Tidal Volume 500 POC PEEP 5 Radiography Chest X-Ray - ED: 1 View and No Acute Disease Diagnostic Testing: Clinical Impression(s) from Imaging Studies Brain CT 05/19/22 16:02 IMPRESSION: 1. Limited study due to motion artifact. There is no acute intracranial abnormality. There has been no significant change from reference exam. 2. Stable underlying senescent change with small vessel ischemia. Electronically Signed: Stepan Christopher MD at 17:47 EST , Chest X-Ray 05/19/22 17:30 IMPRESSION: No acute findings in the chest. Electronically Signed: Stepan Christopher MD at 18:03 EST , Abdomen/Pelvis CT 05/19/22 18:42 IMPRESSION: 1. Large right inguinal hernia with loops of large and small bowel in the hernia sac. 2. Bilateral lower lobe consolidation which may represent atelectasis or pneumonia. Electronically Signed: Stepan Christopher MD at 20:06 EST , Chest X-Ray 05/19/22 19:55 IMPRESSION: Endotracheal tube and feeding tube placement. Left lower lung atelectasis. Electronically Signed: Peewee Solis MD at 20:38 EST , Rhythm Strip Rhythm Strip: Sinus Tach Rate: 149 Ectopy: None EKG Initial EKG: Attestation: I personally reviewed and interpreted this EKG as follows: Interpretation: Sinus Tachycardia Comments: Sinus tachycardia at a rate of 149 bpm Normal axis Normal intervals Normal ST segments Procedures Intubations Intubation Method: orotracheal Intubation Verification: Positive color change and Bilateral breath sounds confirmed Intubation Complications: no complications Critical Care Time Critical Care Time: Yes Critical care time (excluding procedures): 30-74 minutes (50), Arranging Admission or Transfer and Performing Direct Patient Care at Bedside Discharge Plan Triage Chief Complaint: Fall ED Provider: Shwetha Harris Dx/Rx/DC Orders Clinical Impression: Alcohol withdrawal delirium, Alcohol withdrawal seizure, Rhabdomyolysis, Acute hypokalemia, EMMANUEL (acute kidney injury), Aspiration pneumonia Primary Care Provider: Adalberto Daniel Disposition Disposition: Acute Care Hospital [facility]
[2022-05-19] MEDS: Propofol 10MG/Ml 1,000 MG/100 ML Bottle 6.3 MG CONT INF (18:56)
[2022-05-19 19:04] LABS: Mucous, Urine 0 SEEN /hpf (<or=2+); Red Blood Cells-Urine 0 SEEN /hpf (0-5); Squamous Epithelial Cells - UA 0 SEEN /hpf (0-5)
[2022-05-19 19:12] LABS: Color, Urine Amber (Yellow); Glucose, Dipstick 50 mg/dl (Normal); Ketone-Dipstick 50 mg/dl (Negative); Leukocyte Esterase-Dipstick 25 /ul (Negative); Nitrite-Dipstick Negative (Negative); Occult Blood-Urine 150 /ul (Negative); Protein-Dipstick 30 mg/dl (Negative); Specific Gravity, Urine 1.015 (1.002-1.030); Urine Bilirubin Dipstick Negative (Negative); Urine Clarity Sl. Cloudy (Clear); Urine Urobilinogen 8 mg/dl (Normal)
[2022-05-19 19:19] LABS: White Blood Cells 0-5 SEEN /hpf (0-5)
[2022-05-19 19:20] LABS: Bacteria 3+ /hpf (None Seen)
[2022-05-19 19:23] LABS: CPK Total, Creatine Kinase 2002 U/L (39-308)
--- NOTE | 2022-05-19 19:27 | ED.RN ---
Updated patient mother.
[2022-05-19 19:31] LABS: Allen Test Positive; Base Excess -2 mmol/L (-2 to +2); Bicarbonate 23.5 mmol/L (22-26); Blood Gas Specimen Type ART; FI02 60; Mode AC; O2 Delivery Device Adult Vent; PEEP 5; PO2 101 mmHG (75-100); RR 14; SITE R Brach; SO2 97 % (95-99); Total Carbon Dioxide 25 mmol/L; Vt 500; pCO2 43.5 mmHg (35-45); pH 7.34 (7.35-7.45)
--- NOTE | 2022-05-19 19:55 | RAD_ITS ---
STUDY: X-RAY CHEST REASON FOR EXAM: Male, 62 years old. Intubation TECHNIQUE: Single AP portable view of the chest. COMPARISON: Earlier the same day. FINDINGS: Endotracheal tube, 4 cm above the erik. Feeding tube extends to the stomach in the left upper quadrant. Left lower lung atelectasis. There is no demonstrated pleural abnormality. Normal size heart. There is retrocardiac hiatal hernia. Normal mediastinum and saida. Normal visualized pulmonary arteries. Normal visualized aortic arch and descending thoracic aorta. Normal visualized thoracic spine. Normal visualized ribs, clavicles, and shoulders. There is no demonstrated abnormality of the visualized soft tissue structures of the upper abdomen. RAD/Chest 1 View (Portable) IMPRESSION: Endotracheal tube and feeding tube placement. Left lower lung atelectasis. Electronically Signed: Peewee Solis MD at 20:38 EST ,
[2022-05-19] MEDS: 0.9% Normal Saline 1,000 ML 250 ML IV (19:57)
--- NOTE | 2022-05-19 20:43 | HP.PCM.HOS_ITS ---
HPI - General General Date of Admission: 05/19/22 Date of Service: 05/19/22 Chief Complaint: FALL HPI Narrative JORGE SOLER, is a 62 M with a significant history of alcoholism; who lives at home with his mother presenting to the emergency department with a fall x3 times. Reportedly patient refused coming to the hospital with paramedics with his first 2 falls. With his third fall he was found facedown in stool and vomitus. He was subsequently brought to emergency department by paramedics. At the emergency department patient reportedly fell out of bed. He was found to be seizing. He was given Ativan. He was intubated for airway protection. He was placed on propofol and Versed. He was found to have a coffee-ground emesis. He was started on a Protonix drip. His CPK was elevated. His potassium was low. [facility] Medical History Acute and chronic respiratory failure with hypoxia EMMANUEL (acute kidney injury) Alcohol dependence syndrome Alcohol withdrawal Alcohol withdrawal seizure Aspiration into airway Atherosclerosis of coronary artery of [place] heart without angina pectoris Bilateral inguinal hernia without obstruction or gangrene Essential hypertension Fracture of right humerus with nonunion GERD (gastroesophageal reflux disease) High anion gap metabolic acidosis History of CVA (cerebrovascular accident) History of DVT (deep vein thrombosis) History of [place] (myocardial infarction) Incarcerated umbilical hernia Lactic acidemia Preop cardiovascular exam Radial nerve palsy Respiratory failure Home Medications aspirin 81 mg tablet,delayed release (Adult Low Dose Aspirin) 81 mg PO DAILY Check with primary doctor 07/04/19 [History Last Taken 03/29/20] lansoprazole 15 mg capsule,delayed release (Prevacid) 15 mg PO DAILY PRN Pain 1- 10 Or Fever 07/04/19 [History Last Taken Unknown] Allergy/AdvReac Type Severity Reaction Status Date / Time No Known Allergies Allergy Verified 05/17/22 14:57 Family History Mother Colon cancer Heart disease Father Lymphoma Heart disease Surgical History History of esophagogastroduodenoscopy (EGD) History of tonsillectomy and adenoidectomy Social History Smoking Status: Current every day smoker tobacco type: cigarettes alcohol intake: former year quit: 2019 substance use type: does not use caffeine: Yes Type: carbonated beverages Number of servings: 2 and coffee Number of servings: 6 what type of physical activity do you participate in: walking frequency: daily ROS Review of Systems ROS Unobtainable: due to mental condition Vital Signs Vital Signs Vital Signs: 05/19/22 15:28 05/19/22 15:33 05/19/22 17:11 Temperature 96.8 F L Temperature Source Temporal Pulse Rate 148 H 119 H Respiratory Rate 20 H 22 H Respiratory Effort Normal Respiratory Depth Normal Respiratory Pattern Normal Blood Pressure 146/87 H 155/92 H Blood Pressure Mean 106 113 Pulse Ox 94 92 Oxygen Delivery Method Room Air Room Air Fraction of Inspired Oxygen (FIO2) 05/19/22 18:11 05/19/22 18:15 05/19/22 19:01 Temperature Temperature Source Pulse Rate 120 H 158 H Respiratory Rate 20 H 16 Respiratory Effort Respiratory Depth Respiratory Pattern Blood Pressure 148/102 H 151/90 H Blood Pressure Mean 117 110 Pulse Ox 95 96 Oxygen Delivery Method Room Air Mechanical Ventilator Fraction of Inspired Oxygen (FIO2) 60 05/19/22 18:55 05/19/22 19:30 05/19/22 19:45 Temperature Temperature Source Pulse Rate 158 H 130 H 117 H Respiratory Rate 17 18 18 Respiratory Effort Respiratory Depth Respiratory Pattern Normal Blood Pressure 130/81 H 148/81 H Blood Pressure Mean 97 103 Pulse Ox 97 100 100 Oxygen Delivery Method Mechanical Ventilator Mechanical Ventilator Fraction of Inspired Oxygen (FIO2) 60 05/19/22 20:00 05/19/22 20:28 05/19/22 20:30 Temperature Temperature Source Pulse Rate 115 H 123 H 111 H Respiratory Rate 18 17 16 Respiratory Effort Respiratory Depth Respiratory Pattern Blood Pressure 136/83 H 126/87 H 127/90 H Blood Pressure Mean 100 100 102 Pulse Ox 98 94 92 Oxygen Delivery Method Mechanical Ventilator Mechanical Ventilator Mechanical Ventilator Fraction of Inspired Oxygen (FIO2) Weight Weight: 104.8 kg Body Mass Index (BMI) 31.3 Physical Exam Narrative Physical exam: General: Well-nourished, well-developed. Head: Normocephalic, atraumatic, no tenderness Eyes: Injected conjunctiva: Intubated and sedated on mechanical ventilation ENT, no trauma, moist mucous membranes, no rhinorrhea Neck: Nontender, No thyromegaly. CVS: Tachycardia. S1-S2 present. No murmur, gallop or rub. Respiratory : Rhonchi, chest wall nontender, no wheezing Abdomen: Soft, nontender, nondistended, normal bowel sounds, no masses : Inguinal hernia Back: Nontender, no CVA tenderness, no midline spinal tenderness Extremities: Abrasion on left knee is; erythema on right knee. Bilateral lower feet edema Skin: Normal color, no trauma, abrasions Neuro: Intubated and sedated and on mechanical ventilation. Psychiatry: Intubated and sedated and on mechanical ventilation Results Lab / Micro Data Result Diagrams: 05/19/22 15:35 05/19/22 15:35 Labs: Laboratory Results - last 24 hr 05/19/22 15:35: WBC 7.5, RBC 3.81 L, Hgb 14.2, Hct 40.5, MCV 106.3 H, MCH 37.3 H , MCHC 35.1, RDW Std Deviation 51.0 H, RDW Coeff of Valerio 13.1, Plt Count 116 L, MPV 10.0, Immature Gran % (Auto) 1.100 H, Neut % (Auto) 63.2, Lymph % (Auto) 19.0, [place] % (Auto) 16.1 H, Eos % (Auto) 0.1, Baso % (Auto) 0.5, Absolute Neuts (auto) 4.7, Absolute Lymphs (auto) 1.42, Nucleated RBC % 0.3 05/19/22 15:35: Sodium 132 L, Potassium 2.8 L, Chloride 92 L, Carbon Dioxide 18.0 L, Anion Gap 22 H, BUN 9, Creatinine 1.40 H, Estim Creat Clear Calc 60.05, Est GFR (MDRD) Af Amer 66, Est GFR (MDRD) Non-Af 55 L, BUN/Creatinine Ratio 6.4 L, Glucose 181 H, Calcium 9.3, Magnesium 1.9, Total Bilirubin 2.60 H, AST 59 H, ALT 44, Alkaline Phosphatase 76, Troponin I High Sens 16, Total Protein 7.4, Albumin 3.6, Globulin 3.8, Albumin/Globulin Ratio 0.9, Lipase 112 05/19/22 15:35: Ethyl Alcohol 5.0 12/06/22 18:16: Total Creatine Kinase 2002 H 05/19/22 18:16: Troponin I High Sens 25 05/19/22 18:45: Urine Color Jacqueline, Urine Clarity Sl. Cloudy, Urine pH 8.0, Ur Specific [place] 1.015, Urine Protein 30 H, Urine Glucose (UA) 50 H, Urine Ketones 50 H, Urine Occult Blood 150 H, Urine Nitrite Negative, Urine Bilirubin Negative, Urine Urobilinogen 8 H, Ur Leukocyte Esterase 25 H, Urine RBC 0 SEEN, Urine WBC 0-5 SEEN, Ur Squamous Epith Cells 0 SEEN, Urine Bacteria 3+, Urine Mucus 0 SEEN ABG Data ABG results: ABG 05/19/22 19:26 Specimen Type ART Sample Site R Brach pH 7.34 L Bicarbonate Actual 23.5 Total CO2 25 Base Excess -2 O2 Saturation 97 O2 % 60 ABG pCO2 43.5 ABG pO2 101 H Jostin Test Positive Respiration Rate 14 O2 Delivery Device Adult Vent Vent Mode AC Tidal Volume 500 POC PEEP [address] 05/19/22 16:02 IMPRESSION: 1. Limited study due to motion artifact. There is no acute intracranial abnormality. There has been no significant change from reference exam. 2. Stable underlying senescent change with small vessel ischemia. Electronically Signed: Stepan Christopher MD at 17:47 EST , Chest X-Ray 05/19/22 17:30 IMPRESSION: No acute findings in the chest. Electronically Signed: Stepan Christopher MD at 18:03 EST , Abdomen/Pelvis CT 05/19/22 18:42 IMPRESSION: 1. Large right inguinal hernia with loops of large and small bowel in the hernia sac. 2. Bilateral lower lobe consolidation which may represent atelectasis or pneumonia. Electronically Signed: Stepan Christopher MD at 20:06 EST , Chest X-Ray 05/19/22 19:55 IMPRESSION: Endotracheal tube and feeding tube placement. Left lower lung atelectasis. Electronically Signed: Peewee Solis MD at 20:38 EST , Assessment & Plan Assessment/Plan (1) Alcohol withdrawal seizure: QUALIFIERS: Complication of substance-induced condition: with delirium Qualified Code(s): F10.931 - Alcohol use, unspecified with withdrawal delirium; R56.9 - Unspecified convulsions (2) Aspiration pneumonia: QUALIFIERS: Aspiration pneumonia type: due to gastric secretions Laterality: bilateral Lung location: lower lobe of lung Qualified Code(s): J69.0 - Pneumonitis due to inhalation of food and vomit (3) EMMANUEL (acute kidney injury): (4) Rhabdomyolysis: (5) Coffee ground emesis: PLAN: Plan Alcohol withdrawal seizures Intubated at emergency department for airway protection. Admit intensive care unit. Started on propofol and Versed at emergency department and continued. Thiamine and folic acid ordered. Check EEG [employer] consult Aspiration pneumonia Abdomen and pelvis CT was visualized and independently interpreted. I agree with radiologist interpretation of bilateral consolidation/atelectasis. Discussed with emergency department doctor who started patient on Unasyn. Unasyn continued. CBC showed white count of 7.5 with bandemia of 1.1%; trend. Coffee-ground emesis Protonix bolus given emergency department and started on Protonix drip thereafter. Protonix drip continued. Check gastric occult. Trend CBC. Gastroenterology consult Chronic thrombocytopenia Stable Trend CBC Rhabdomyolysis CPK of 2001. Trend. Normal saline IV hydration ordered. EMMANUEL Creatinine of 1.40 on presentation. Baseline creatinine is around 0.8. BUN 9. BUN over creatinine 6.4. 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 Anion gap metabolic acidosis Noted to have bicarbonate of 18 and anion gap of 22. Likely secondary to lactic acidosis. Trend lactic acid. IV hydration as above. Hyponatremia Sodium on presentation was 132 Mild Chronic Likely secondary to alcoholism. Trend CMP. DVT Prophylaxis: SCDs ordered. Charges/Coding Visit Charges Inpatient E&M: 11059 Init Hosp L3
[2022-05-19 21:35] LABS: Triglycerides 97 mg/dL
[2022-05-19] MEDS: Propofol 10MG/Ml 1,000 MG/100 ML Bottle 31.4 MG CONT INF (22:52)
[2022-05-19] MEDS: 0.9% Normal Saline 1,000 ML 150 ML IV (23:09)
[2022-05-20] VITALS (37 sets, daily range): BP systolic 70–122; BP diastolic 45–81; PULSE 64–102; RESP 14–23; TEMP 36.3–38.3; O2SAT 90–100
[2022-05-20] MEDS: Potassium Chloride 10mEq/100mL 10 MEQ/100 ML IV.SOLN. 100 MEQ IV BOLUS ×2 (00:43→01:45)
[2022-05-20] MEDS: Propofol 10MG/Ml 1,000 MG/100 ML Bottle 18.9 MG CONT INF (02:20)
[2022-05-20 03:43] LABS: Absolute Lymphocyte Count 0.77 X10^3/uL (0.83-4.51); Absolute Neutrophil Count 3.3 X10^3/uL (2.0-7.7); Basophil# 0.01 X10^3/uL; Basophil% 0.2 % (0-1); Eosinophil# 0.02 X10^3/uL; Eosinophils% 0.4 % (0-5); Hematocrit 32.5 % (40-54); Hemoglobin 11.5 g/dL (13.0-16.5); Lymphocyte # 0.77 X10^3/ul (0.83-4.51); Lymphocyte % 16.7 % (19-41); Mean Corp Hgb Conc 35.4 g/dL (32-36); Mean Corpuscular Hgb 37.6 pg (27.0-32.0); Mean Corpuscular Volume 106.2 fL (80-94); Mean Platelet Vol. 11.2 fl (6.2-12.0); Monocyte# 0.52 X10^3/uL; Monocyte% 11.3 % (0-10); NRBC Flagged by Analyzer 0 % (0-5); Neutrophil # 3.27 X10^3/uL (2.7-7.7); Neutrophil % 70.8 % (47-70); POSITIVE COUNT YES; Platelet Count 69 K/mm3 (150-450); RBC Distribution Width CV 13.2 % (11.6-14.6); RBC Distribution Width SD 51.2 fl (35.1-43.9); Red Blood Count 3.06 M/mm3 (4.6-6.2); White Blood Count 4.6 K/mm3 (4.4-11.0)
[2022-05-20 04:12] LABS: ALB/GLOB Ratio 0.8 RATIO (0.9-2.4); AST(SGOT) 92 U/L (15-37); Alanine Aminotransfer ALT/SGPT 40 U/L (16-61); Albumin, Serum 2.6 g/dL (3.2-5.0); Alkaline Phosphatase 49 U/L (45-117); Anion Gap 6 (5-15); BUN 10 mg/dL (7-18); BUN/Creat Ratio 9.3 RATIO (10-20); CPK Total, Creatine Kinase 1494 U/L (39-308); Calcium,Total 7.6 mg/dL (8.5-10.1); Chloride 98 mmol/L (98-107); Creatinine, Serum 1.07 mg/dL (0.70-1.30); EST Glomerular Filtration Rate 74 mL/min (>60); Est Glom Filt Rate - Afr Amer 90 mL/min (>60); Estimated Creatinine Clearance 78.57 ml/min; Globulin 3.2 g/dL (2.2-4.2); Glucose 107 mg/dL (74-106); Potassium 4.5 mmol/L (3.5-5.1); Protein, Total 5.8 g/dL (6.4-8.2); Sodium Level 134 mmol/L (136-145)
[2022-05-20] MEDS: 0.9% Normal Saline 1,000 ML 150 ML IV ×2 (05:16→11:35)
--- NOTE | 2022-05-20 06:24 | RAD_ITS ---
INDICATION: Checking ETT/OG placement EXAMINATION/TECHNIQUE: X-RAY - XR Chest 1 View COMPARISON: 05/19/2022 FINDINGS: LINES/DEVICES: Endotracheal tube terminates 3.5 cm above the erik. Enteric tube side port terminates at the gastroesophageal junction.. LUNGS: Retrocardiac opacity, similar compared to the prior.. No pneumothorax. MEDIASTINUM AND CARDIOVASCULAR STRUCTURES: Atherosclerotic calcifications and cardiomediastinal contour, similar compared to the prior. BONES AND SOFT TISSUES: Degenerative changes in the visualized spine. No acute osseous abnormality.. RAD/Chest 1 View (Portable) IMPRESSION: 1. Enteric tube side-port terminates at the gastroesophageal junction, should be advanced 5 cm. 2. Endotracheal tube terminates 3.5 cm above the erik. 3. Retrocardiac opacity, may represent atelectasis or infection. Electronically Signed: Lang Lamar MD at 6:57 EST ,
--- NOTE | 2022-05-20 08:02 | CON.PCM.CC_ITS ---
Assessment & Plan Assessment/Plan (1) Alcohol withdrawal: (2) EMMANUEL (acute kidney injury): (3) Alcohol withdrawal delirium: (4) Alcohol withdrawal seizure: QUALIFIERS: Complication of substance-induced condition: with delirium Qualified Code(s): F10.931 - Alcohol use, unspecified with withdrawal delirium; R56.9 - Unspecified convulsions PLAN: Plan RECOMMENDATIONS: 1. Continue propofol. Attempt discontinuation of Precedex 2. Okay to start tube feeds once seen by GI 3. Spontaneous breathing and awakening trials per protocol 4. Continue empiric antibiotics pending cultures 5. Await GI consult on PPI drip 6. Likely transition to GI volume from IV hydration IMPRESSIONS: 1. Acute DTs following alcohol withdrawal Exact etiology of alcohol cessation is unclear. Patient does have a history of significant high levels of alcohol indicating probable alcohol abuse. Clinical suspicion for withdrawal seizures. EEG has been ordered. We will continue with sedation. May need to initiate phenobarb. Thiamine and folate have been ordered. Anticipate patient will require mechanical ventilation for at least 3 to 4 days secondary to severe withdrawal. We will need to address willingness for alcohol cessation after the acute visit. 2. Acute hypercarbic respiratory failure secondary to possible aspiration pneumonia versus DTs Patient with a respiratory acidosis following intubation. Patient does not have a significant infiltrate on chest x-ray. Supportive devices have been adjusted to appropriate positions. Patient on minimal vent settings at this time, but likely will not be able to be extubated in the short-term secondary to problem #1. Anticipate 48 to 72 hours of mechanical ventilation. 3. Possible upper GI bleed Patient has received fluid resuscitation, but hemoglobin is down significantly. GI has been consulted. Patient currently on a PPI drip. Defer to GI on whether patient should require scope. Okay to scope patient while on ventilator from my perspective. This may help with possible clipping. We will hold on tube feeds until GI can provide input. 4. Rhabdomyolysis/chronic thrombocytopenia/acute kidney injur y/hyperbilirubinemia/hyponatremia Clinical suspicion for alcohol leading to the current issues. This does complicate patient's care, management, recovery and prognosis. Patient appears to be responding well to current therapy. Do not believe patient has acute alcohol toxicity with elevated enzymes. Renal function is improving with hydration. Likely transition to GI volume resuscitation if okay with gastroenterology. TIME: 35 minutes critical care time spent addressing patient's acute DTs, respiratory failure, possible GI bleed, review of all data and collaboration with care team HPI Consult Data Date of Consult: 05/20/22 HPI Narrative Reason for Consultation: DTs HPI Narrative: JORGE SOLER is a 62 M, with past medical history listed below, who presents to [facility] on 05/19/2022 via EMS secondary to repeated falls. Patient reportedly had called EMS 3 times previous in the day for assistance with falls. Patient had refused transfer the previous 2 times, but in the third time was found to be facedown in his own vomit and feces. Patient reportedly was also mildly cyanotic and the patient eventually agreed to transport. Patient has had multiple ER visits secondary to intoxication with the last 1 being 2 days prior with an alcohol level of 484. Patient reportedly was confused initially upon coming to the emergency department. In the ER, patient was afebrile, but tachycardic at 148 bpm. Patient was hypertensive and saturating well on room air. Laboratory work-up showed a white blood cell count of 7.5 with a hemoglobin of 14.2. Initial chemistries did show a sodium of 132, potassium of 2.8 and a bicarbonate of 18. Creatinine was elevated at 1.4 with a glucose of 184. Total bili was elevated at 2.6 and alcohol level was noted to be 5. UA did have bacteria, but no significant white blood cells. Patient reportedly became agitated after coming back from CT scan. Patient had an episode of generalized tonic-clonic activity and sonorous respirations following. Patient had received Ativan for DTs, but the decision was made to intubate the patient following etomidate and rocuronium. NG was suggestive of coffee-ground secretions. Patient was placed on Unasyn secondary to concerns for aspiration. An ABG obtained after intubation showed a respiratory acidosis with increased AA gradient. Since being in the intensive care unit, patient has been on Precedex and propofol to maintain ventilator synchrony. Patient has had significant issues with intermittent agitation, but vent settings are now minimal levels. Patient is not actively following commands. No further seizure activity has been noted. This morning a chest x-ray was obtained and the endotracheal tube was advanced 1 cm and OG advanced 5 cm. Unable to obtain review of systems secondary to intubation and mental status. [facility] Medical History Acute and chronic respiratory failure with hypoxia EMMANUEL (acute kidney injury) Alcohol dependence syndrome Alcohol withdrawal Alcohol withdrawal seizure Aspiration into airway Atherosclerosis of coronary artery of [place] without angina pectoris Bilateral inguinal hernia without obstruction or gangrene Essential hypertension Fracture of right humerus with nonunion GERD (gastroesophageal reflux disease) High anion gap metabolic acidosis History of CVA (cerebrovascular accident) History of DVT (deep vein thrombosis) History of [place] (myocardial infarction) Incarcerated umbilical hernia Lactic acidemia Preop cardiovascular exam Radial nerve palsy Respiratory failure Medical History unable to obtain Home Medications aspirin 81 mg tablet,delayed release (Adult Low Dose Aspirin) 81 mg PO DAILY C heck with primary doctor 07/04/19 [History Last Taken 03/29/20] lansoprazole 15 mg capsule,delayed release (Prevacid) 15 mg PO DAILY PRN Pain 1- 10 Or Fever 07/04/19 [History Last Taken Unknown] Allergy/AdvReac Type Severity Reaction Status Date / Time No Known Allergies Allergy Verified 05/17/22 14:57 Family History Mother Colon cancer Heart disease Father Lymphoma Heart disease Family History unable to obtain Surgical History History of esophagogastroduodenoscopy (EGD) History of tonsillectomy and adenoidectomy Surgical History unable to obtain Social History Smoking Status: Current every day smoker tobacco type: cigarettes alcohol intake: former year quit: 2019 substance use type: does not use caffeine: Yes Type: carbonated beverages Number of servings: 2 and coffee Number of servings: 6 what type of physical activity do you participate in: walking frequency: daily ROS Review of Systems ROS Unobtainable: due to endotracheal tube and due to mental status Physical Exam Const Constitutional Narrative: RASS -3 with good vent synchrony. Appears older than stated age. General Appearance: lethargic and patient mechanically ventilated; Negative for ill appearing HEENT normocephalic, head/scalp atraumatic and moist oral mucous membranes Mouth: endotracheal tube in place and OG tube in place Eyes PERRL and EOMs intact bilaterally Eyes Narrative: Scleral injection noted Neck full ROM and no lymphadenopathy Chest inspection of chest normal Resp normal respiratory effort Effort and Inspection: Negative for actively coughing Auscultation: Negative for rales, rhonchi or wheezes Cardio regular rate, regular rhythm, S1 normal heart sound, S2 normal heart sound, no murmurs, no rub and no gallops GI normal to inspection, nondistended, normoactive bowel sounds GI Narrative: Obese Narrative: Large inguinal hernia Extremity General Extremity: edema; Negative for clubbing Skin no rashes or lesions noted Neuro Sensorium / Orientation: sedated on vent Psych Mood & Affect: flat affect Lab / Micro Data Attestation: I reviewed the patient's lab results. Result Diagrams: 05/20/22 03:35 05/20/22 03:35 Labs: Laboratory Results - last 24 hr 05/19/22 15:35: WBC 7.5, RBC 3.81 L, Hgb 14.2, Hct 40.5, MCV 106.3 H, MCH 37.3 H , MCHC 35.1, RDW Std Deviation 51.0 H, RDW Coeff of Valerio 13.1, Plt Count 116 L, MPV 10.0, Immature Gran % (Auto) 1.100 H, Neut % (Auto) 63.2, Lymph % (Auto) 19.0, George % (Auto) 16.1 H, Eos % (Auto) 0.1, Baso % (Auto) 0.5, Absolute Neuts (auto) 4.7, Absolute Lymphs (auto) 1.42, Nucleated RBC % 0.3 05/19/22 15:35: Sodium 132 L, Potassium 2.8 L, Chloride 92 L, Carbon Dioxide 18.0 L, Anion Gap 22 H, BUN 9, Creatinine 1.40 H, Estim Creat Clear Calc 60.05, Est GFR (MDRD) Af Amer 66, Est GFR (MDRD) Non-Af 55 L, BUN/Creatinine Ratio 6.4 L, Glucose 181 H, Calcium 9.3, Magnesium 1.9, Total Bilirubin 2.60 H, AST 59 H, ALT 44, Alkaline Phosphatase 76, Troponin I High Sens 16, Total Protein 7.4, Al bumin 3.6, Globulin 3.8, Albumin/Globulin Ratio 0.9, Lipase 112 05/19/22 15:35: Ethyl Alcohol 5.0 05/19/22 18:16: Total Creatine Kinase 2002 H 05/19/22 18:16: Troponin I High Sens 25 05/19/22 18:16: Triglycerides 97 05/19/22 18:45: Urine Color Jacqueline, Urine Clarity Sl. Cloudy, Urine pH 8.0, Ur Specific Luck 1.015, Urine Protein 30 H, Urine Glucose (UA) 50 H, Urine Ketones 50 H, Urine Occult Blood 150 H, Urine Nitrite Negative, Urine Bilirubin Negative, Urine Urobilinogen 8 H, Ur Leukocyte Esterase 25 H, Urine RBC 0 SEEN, Urine WBC 0-5 SEEN, Ur Squamous Epith Cells 0 SEEN, Urine Bacteria 3+, Urine Mucus 0 SEEN 05/20/22 03:35: WBC 4.6, RBC 3.06 L, Hgb 11.5 L, Hct 32.5 L, MCV 106.2 H, MCH 37.6 H, MCHC 35.4, RDW Std Deviation 51.2 H, RDW Coeff of Valerio 13.2, Plt Count 69 L, MPV 11.2, Immature Gran % (Auto) 0.600, Neut % (Auto) 70.8 H, Lymph % (Auto) 16.7 L, George % (Auto) 11.3 H, Eos % (Auto) 0.4, Baso % (Auto) 0.2, Absolute Neuts (auto) 3.3, Absolute Lymphs (auto) 0.77 L, Nucleated RBC % 0 05/20/22 03:35: Sodium 134 L, Potassium 4.5, Chloride 98, Carbon Dioxide 30.0, Anion Gap 6, BUN 10, Creatinine 1.07, Estim Creat Clear Calc 78.57, Est GFR (MDRD) Af Amer 90, Est GFR (MDRD) Non-Af 74, BUN/Creatinine Ratio 9.3 L, Glucose 107 H, Calcium 7.6 L, Total Bilirubin 1.90 H, AST 92 H, ALT 40, Alkaline Phosphatase 49, Total Creatine Kinase 1494 H, Total Protein 5.8 L, Albumin 2.6 L , Globulin 3.2, Albumin/Globulin Ratio 0.8 L ABG Data ABG results: ABG 05/19/22 19:26 Specimen Type ART Sample Site R Brach pH 7.34 L Bicarbonate Actual 23.5 Total CO2 25 Base Excess -2 O2 Saturation 97 O2 % 60 ABG pCO2 43.5 ABG pO2 101 H Jostin Test Positive Respiration Rate 14 O2 Delivery Device Adult Vent Vent Mode AC Tidal Volume 500 POC PEEP 5 Attestation: I personally reviewed and interpreted this ABG as follows: (See HPI) Rhythm Strip Rhythm Strip: Sinus Tach Rate: 149 Ectopy: None Radiology Impression Brain CT 05/19/22 16:02 IMPRESSION: 1. Limited study due to motion artifact. There is no acute intracranial abnormality. There has been no significant change from reference exam. 2. Stable underlying senescent change with small vessel ischemia. Electronically Signed: Stepan Christopher MD at 17:47 EST , Chest X-Ray 05/19/22 17:30 IMPRESSION: No acute findings in the chest. Electronically Signed: Stepan Christopher MD at 18:03 EST , Abdomen/Pelvis CT 05/19/22 18:42 IMPRESSION: 1. Large right inguinal hernia with loops of large and small bowel in the hernia sac. 2. Bilateral lower lobe consolidation which may represent atelectasis or pneumonia. Electronically Signed: Stepan Christopher MD at 20:06 EST , Chest X-Ray 05/19/22 19:55 IMPRESSION: Endotracheal tube and feeding tube placement. Left lower lung atelectasis. Electronically Signed: Peewee Solis MD at 20:38 EST , Chest X-Ray 05/20/22 06:24 IMPRESSION: 1. Enteric tube side-port terminates at the gastroesophageal junction, should be advanced 5 cm. 2. Endotracheal tube terminates 3.5 cm above the erik. 3. Retrocardiac opacity, may represent atelectasis or infection. Electronically Signed: Lang Lamar MD at 6:57 EST , Charges/Coding Procedures Hospitalists Procedures: [id number] Critial Care 1st Hr
--- NOTE | 2022-05-20 08:28 | PN.HOSP_ITS ---
Subjective Subjective Intubated and sedated, resting comfortably at time of evaluation. On minimal vent settings, presently on propofol 30 and Precedex 0.6 Objective Data Objective Data Vital Signs: Vital Signs Temp Pulse Resp BP Pulse Ox O2 Del Method FiO2 97.9 F 79 23 H 96/62 93 Mechanical Ventilator 25 05/20/22 07:00 05/20/22 07:40 05/20/22 07:40 05/20/22 07:00 05/20/22 07:40 05/20/22 07:00 05/20/22 07:40 Oxygen Delivery Method Mechanical Ventilator Weight: 105.8 kg Body Mass Index (BMI) 31.5 Intake & Output: Intake and Output for Last 24 Hours 05/18/22 05/19/22 05/20/22 23:59 23:59 23:59 Intake Total 1236.79 / 1278.19 2524.78 / 2524.78 Output Total 900 / 900 400 / 400 Balance 336.79 / 378.19 2124.78 / 2124.78 Lab / Micro Data Result Diagrams: 05/20/22 03:35 05/20/22 03:35 Labs: Laboratory Results - last 24 hr 05/19/22 15:35: WBC 7.5, RBC 3.81 L, Hgb 14.2, Hct 40.5, MCV 106.3 H, MCH 37.3 H , MCHC 35.1, RDW Std Deviation 51.0 H, RDW Coeff of Valerio 13.1, Plt Count 116 L, MPV 10.0, Immature Gran % (Auto) 1.100 H, Neut % (Auto) 63.2, Lymph % (Auto) 19.0, [place] % (Auto) 16.1 H, Eos % (Auto) 0.1, Baso % (Auto) 0.5, Absolute Neuts (auto) 4.7, Absolute Lymphs (auto) 1.42, Nucleated RBC % 0.3 05/19/22 15:35: Sodium 132 L, Potassium 2.8 L, Chloride 92 L, Carbon Dioxide 18.0 L, Anion Gap 22 H, BUN 9, Creatinine 1.40 H, Estim Creat Clear Calc 60.05, Est GFR (MDRD) Af Amer 66, Est GFR (MDRD) Non-Af 55 L, BUN/Creatinine Ratio 6.4 L, Glucose 181 H, Calcium 9.3, Magnesium 1.9, Total Bilirubin 2.60 H, AST 59 H, ALT 44, Alkaline Phosphatase 76, Troponin I High Sens 16, Total Protein 7.4, Albumin 3.6, Globulin 3.8, Albumin/Globulin Ratio 0.9, Lipase 112 05/19/22 15:35: Ethyl Alcohol 5.0 05/19/22 18:16: Total Creatine Kinase 2002 H 05/19/22 18:16: Troponin I High Sens 25 05/19/22 18:16: Triglycerides 97 05/19/22 18:45: Urine Color Jacqueline, Urine Clarity Sl. Cloudy, Urine pH 8.0, Ur Specific [place] 1.015, Urine Protein 30 H, Urine Glucose (UA) 50 H, Urine Ketones 50 H, Urine Occult Blood 150 H, Urine Nitrite Negative, Urine Bilirubin Negative, Urine Urobilinogen 8 H, Ur Leukocyte Esterase 25 H, Urine RBC 0 SEEN, Urine WBC 0-5 SEEN, Ur Squamous Epith Cells 0 SEEN, Urine Bacteria 3+, Urine Mucus 0 SEEN 05/20/22 03:35: WBC 4.6, RBC 3.06 L, Hgb 11.5 L, Hct 32.5 L, MCV 106.2 H, MCH 37.6 H, MCHC 35.4, RDW Std Deviation 51.2 H, RDW Coeff of Valerio 13.2, Plt Count 69 L, MPV 11.2, Immature Gran % (Auto) 0.600, Neut % (Auto) 70.8 H, Lymph % (Auto) 16.7 L, [place] % (Auto) 11.3 H, Eos % (Auto) 0.4, Baso % (Auto) 0.2, Absolute Neuts (auto) 3.3, Absolute Lymphs (auto) 0.77 L, Nucleated RBC % 0 05/20/22 03:35: Sodium 134 L, Potassium 4.5, Chloride 98, Carbon Dioxide 30.0, Anion Gap 6, BUN 10, Creatinine 1.07, Estim Creat Clear Calc 78.57, Est GFR (MDRD) Af Amer 90, Est GFR (MDRD) Non-Af 74, BUN/Creatinine Ratio 9.3 L, Glucose 107 H, Calcium 7.6 L, Total Bilirubin 1.90 H, AST 92 H, ALT 40, Alkaline Phosphatase 49, Total Creatine Kinase 1494 H, Total Protein 5.8 L, Albumin 2.6 L , Globulin 3.2, Albumin/Globulin Ratio 0.8 L ABG Data ABG results: ABG 05/19/22 19:26 Specimen Type ART Sample Site R Brach pH 7.34 L Bicarbonate Actual 23.5 Total CO2 25 Base Excess -2 O2 Saturation 97 O2 % 60 ABG pCO2 43.5 ABG pO2 101 H Jostin Test Positive Respiration Rate 14 O2 Delivery Device Adult Vent Vent Mode AC Tidal Volume 500 POC PEEP 5 Radiography Diagnostic Testing: Radiology Impression Brain CT 05/19/22 16:02 IMPRESSION: 1. Limited study due to motion artifact. There is no acute intracranial abnormality. There has been no significant change from reference exam. 2. Stable underlying senescent change with small vessel ischemia. Electronically Signed: Stepan Christopher MD at 17:47 EST , Chest X-Ray 05/19/22 17:30 IMPRESSION: No acute findings in the chest. Electronically Signed: Stepan Christopher MD at 18:03 EST , Abdomen/Pelvis CT 05/19/22 18:42 IMPRESSION: 1. Large right inguinal hernia with loops of large and small bowel in the hernia sac. 2. Bilateral lower lobe consolidation which may represent atelectasis or pneumonia. Electronically Signed: Stepan Christopher MD at 20:06 EST , Chest X-Ray 05/19/22 19:55 IMPRESSION: Endotracheal tube and feeding tube placement. Left lower lung atelectasis. Electronically Signed: Peewee Solis MD at 20:38 EST , Chest X-Ray 05/20/22 06:24 IMPRESSION: 1. Enteric tube side-port terminates at the gastroesophageal junction, should be advanced 5 cm. 2. Endotracheal tube terminates 3.5 cm above the erik. 3. Retrocardiac opacity, may represent atelectasis or infection. Electronically Signed: Lang Lamar MD at 6:57 EST , Rhythm Strip Rhythm Strip: Sinus Tach Rate: 149 Ectopy: None Physical Exam Const Constitutional Narrative: Intubated and sedated HEENT normocephalic Eyes Eyes Narrative: Did not spontaneously open eyes Neck supple Resp Resp Narrative: Mechanically ventilated Cardio regular rate and regular rhythm GI soft to palpation and non-distended Extremity Extremity Narrative: No significant edema appreciated Neuro Neuro Narrative: Intubated and sedated, did not participate in exam Psych Psych Narrative: Unable to cooperate secondary to intubation and sedation Assessment & Plan Assessment/Plan (1) Alcohol withdrawal seizure: QUALIFIERS: Complication of substance-induced condition: with delirium Qualified Code(s): F10.931 - Alcohol use, unspecified with withdrawal delirium; R56.9 - Unspecified convulsions (2) Aspiration pneumonia: QUALIFIERS: Aspiration pneumonia type: due to gastric secretions Laterality: bilateral Lung location: lower lobe of lung Qualified Code(s): J69.0 - Pneumonitis due to inhalation of food and vomit (3) EMMANUEL (acute kidney injury): (4) Rhabdomyolysis: (5) Coffee ground emesis: PLAN: Plan #Alcohol withdrawal seizures Intubated at emergency department for airway protection. Admit intensive care unit. Started on propofol and Versed at emergency department and continued. Thiamine and folic acid ordered. Check EEG Development Architect consult 05/20: Remains intubated and sedated, concern for DTs as he had previously been functional with an alcohol level greater than 500 and was found down and with a alcohol level of 0. Intensive care on board. Thiamine and folic acid. On propofol and Precedex #Aspiration pneumonia Abdomen and pelvis CT was visualized and independently interpreted. I agree with radiologist interpretation of bilateral consolidation/atelectasis. Dis cussed with emergency department doctor who started patient on Unasyn. Unasyn continued. CBC showed white count of 7.5 with bandemia of 1.1%; trend. 05/20: Continue Unasyn #Coffee-ground emesis Protonix bolus given emergency department and started on Protonix drip thereafter. Protonix drip continued. Check gastric occult. Trend CBC. Gastroenterology consult 05/20/2022: On a PPI drip, GI consulted, hemoglobin is 11.5 today down from 14.2 however all cell lines decreased so there may be a component of dilution now that he has been receiving fluids #Chronic thrombocytopenia Stable Trend CBC #Rhabdomyolysis CPK of 2001. Trend. Normal saline IV hydration ordered. 05/20: CK downtrending, most recent 1494, continue fluids #EMMANUEL Creatinine of 1.40 on presentation. Baseline creatinine is around 0.8. BUN 9. BUN over creatinine 6.4. 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 05/20: Downtrending #Anion gap metabolic acidosis?resolved #Hyponatremia Sodium on presentation was 132 Mild Chronic Likely secondary to alcoholism. Trend CMP. DVT Prophylaxis: SCDs ordered. Charges/Coding Visit Charges Inpatient E&M: 59951 Subs Hosp L2
[2022-05-20] MEDS: Propofol 10MG/Ml 1,000 MG/100 ML Bottle 22 MG CONT INF (08:40)
--- NOTE | 2022-05-20 10:19 | CM.ED ---
KG received a call back from Greyson at [facility]. Greyson stated that patient's mother is 93 years old. Greyson said that her boss had contact with patient's mother, Kimberly, in 2019. KG advised concern is that Rowdy is verbally abusive to his mother. KG reviewed the numbers of EMS and police calls this month. Greyson said that since patient is currently in the ICU and to call when patient is ready for discharge. KG reviewed chart and noted that as patient is 62 a referral could be made on him regarding the EMS stating that patient does not want to help himself, can't walk for medical reasons, was covered in poop yesterday, has a hernia the size of a basketball that he refuses surgery for and was sitting in his own shit when patient was brought to the ED. KG also noted that the EMS report stated that patient was found laying face down with bowel movement covering his whole back and legs and when he was rolled over there was urine dripping from his clothes. Greyson said to call her when patient is discharged from the hospital as she will investigate safety of his mother regarding patient and also investigate safety concerns of patient. KG updated ICU KG Avendano. Plan: [facility] to be contacted at [facility] Malika LABOY
--- NOTE | 2022-05-20 10:43 | TELEMED_ITS ---
[facility] has confirmed receipt of a request for visit. This document confirms receipt of the order initiating the consult. To find the results of the consultation, please view the patient's reports for the scanned Telemed Consult.
[2022-05-20] MEDS: Chlorhexidine 15 ML PO ×2 (10:53→22:15)
--- NOTE | 2022-05-20 11:15 | CM.ED ---
CELESTINO Malhotra RN reported to this property underwriter that last night she updated patient's mother that patient is not walking and is chemically sedated and patient's mother said that she needed patient to come home as the furnace was making a funny noise. KG updated Malika LABOY
[2022-05-20] MEDS: Propofol 10MG/Ml 1,000 MG/100 ML Bottle 28.3 MG CONT INF (11:34)
[2022-05-20] MEDS: LORazepam 2 MG/ML Syringe IV ×3 (13:34→19:59)
[2022-05-20] MEDS: Propofol 10MG/Ml 1,000 MG/100 ML Bottle 31.4 MG CONT INF ×3 (14:50→21:09)
--- NOTE | 2022-05-20 16:58 | CON.PCM_ITS ---
Assessment & Plan Assessment/Plan (1) Coffee ground emesis: PLAN: Diagnosis for coffee-ground emesis alcoholic gastritis, Yesica-Tarango t ear, portal gastropathy, Brock. He does have thrombocytopenia and alcoholic gastritis so he should be checked for esophageal and gastric varices. He would undergo an upper endoscopy to evaluate his upper GI tract. Recommend to continue PPI therapy. Monitor CBC. (2) Alcoholic hepatitis: PLAN: His Madrey score is 23 . Encephalopathy cannot be judged at this time. He does not need steroid therapy and he would not benefit evaluation at this time. He is on continues to get worse will start Pentoxyphilline and Mucomyst for Acute liver injury. HPI Consult Data Date of Consult: 05/20/22 HPI Narrative Reason for Consultation: GI bleeding HPI Narrative: JORGE SOLER, is a 62 year old male with history of alcohol abuse, CAD, aspiration, nicotine use and large inguinal hernia preesenting via EMS for weakness and fall.? The EMS had been called out to the patient's house 3 times today for lift assist and falls.? Patient had refused transfer the first 2 times.? The third time patient was found facedown in his own vomit.? There was concern for the patient being purple/blue.? Patient eventually agreed to transport.? Patient lives with his mother.? Patient has had multiple ER visits for alcohol intoxication most recently 2 days ago At the emergency department patient reportedly fell out of bed.? He was found to be seizing.? He was given Ativan.? He was intubated for airway protection.? He was placed on propofol and Versed.? He was found to have a coffee-ground emesis.? He was started on a Protonix drip.? His CPK was elevated.? His potassium was also low. He was intubated and sedated for airway protection. On minimal vent settings, presently on propofol 30 and Precedex 0.6. While in the hospital he has had a significant drop in his hemoglobin and platelet count. His INR is mildly elevated along with elevated CPK consistent with rhabdomyolysis. He has an OG tube in place and it reveals 200 mL of coffee-ground emesis. .? [facility] Medical History (Updated 05/20/22 @ 17:[address] Black Friend, DO) Acute and chronic respiratory failure with hypoxia EMMANUEL (acute kidney injury) Alcohol dependence syndrome Alcohol withdrawal Alcohol withdrawal seizure Aspiration into airway Atherosclerosis of coronary artery of [place] heart without angina pectoris Bilateral inguinal hernia without obstruction or gangrene Essential hypertension Fracture of right humerus with nonunion GERD (gastroesophageal reflux disease) High anion gap metabolic acidosis History of CVA (cerebrovascular accident) History of DVT (deep vein thrombosis) History of CO (myocardial infarction) Incarcerated umbilical hernia Lactic acidemia Preop cardiovascular exam Radial nerve palsy Respiratory failure Medical History unable to obtain Home Medications aspirin 81 mg tablet,delayed release (Adult Low Dose Aspirin) 81 mg PO DAILY Check with primary doctor 07/04/19 [History Last Taken 03/29/20] lansoprazole 15 mg capsule,delayed release (Prevacid) 15 mg PO DAILY PRN Pain 1- 10 Or Fever 07/04/19 [History Last Taken Unknown] Allergy/AdvReac Type Severity Reaction Status Date / Time No Known Allergies Allergy Verified 05/17/22 14:57 Family History Mother Colon cancer Heart disease Father Lymphoma Heart disease Family History unable to obtain Surgical History History of esophagogastroduodenoscopy (EGD) History of tonsillectomy and adenoidectomy Surgical History unable to obtain Social History Smoking Status: Current every day smoker tobacco type: cigarettes alcohol intake: former year quit: 2019 substance use type: does not use caffeine: Yes Type: carbonated beverages Number of servings: 2 and coffee Number of servings: 6 what type of physical activity do you participate in: walking frequency: daily ROS Review of Systems ROS Unobtainable: due to endotracheal tube and due to mental status Physical Exam Const Constitutional Narrative: Intubated and sedated HEENT normocephalic Eyes Eyes Narrative: Did not spontaneously open eyes Neck supple Resp Resp Narrative: Mechanically ventilated Cardio regular rate and regular rhythm GI soft to palpation and non-distended Extremity Extremity Narrative: No significant edema appreciated Neuro Neuro Narrative: Intubated and sedated, did not participate in exam Psych Psych Narrative: Unable to cooperate secondary to intubation and sedation Lab / Micro Data Result Diagrams: 05/20/22 03:35 05/20/22 03:35 Labs: Laboratory Results - last 24 hr 05/19/22 15:35: Ethyl Alcohol 5.0 05/19/22 18:16: Total Creatine Kinase 2002 H 05/19/22 18:16: Troponin I High Sens 25 05/19/22 18:16: Triglycerides 97 05/19/22 18:45: Urine Color Jacqueline, Urine Clarity Sl. Cloudy, Urine pH 8.0, Ur Specific [place] 1.015, Urine Protein 30 H, Urine Glucose (UA) 50 H, Urine Ketones 50 H, Urine Occult Blood 150 H, Urine Nitrite Negative, Urine Bilirubin Negative, Urine Urobilinogen 8 H, Ur Leukocyte Esterase 25 H, Urine RBC 0 SEEN, Urine WBC 0-5 SEEN, Ur Squamous Epith Cells 0 SEEN, Urine Bacteria 3+, Urine Muc us 0 SEEN 05/20/22 03:35: WBC 4.6, RBC 3.06 L, Hgb 11.5 L, Hct 32.5 L, MCV 106.2 H, MCH 37.6 H, MCHC 35.4, RDW Std Deviation 51.2 H, RDW Coeff of Valerio 13.2, Plt Count 69 L, MPV 11.2, Immature Gran % (Auto) 0.600, Neut % (Auto) 70.8 H, Lymph % (Auto) 16.7 L, [place] % (Auto) 11.3 H, Eos % (Auto) 0.4, Baso % (Auto) 0.2, Absolute Neuts (auto) 3.3, Absolute Lymphs (auto) 0.77 L, Nucleated RBC % 0 05/20/22 03:35: Sodium 134 L, Potassium 4.5, Chloride 98, Carbon Dioxide 30.0, Anion Gap 6, BUN 10, Creatinine 1.07, Estim Creat Clear Calc 78.57, Est GFR (MDRD) Af Amer 90, Est GFR (MDRD) Non-Af 74, BUN/Creatinine Ratio 9.3 L, Glucose 107 H, Calcium 7.6 L, Total Bilirubin 1.90 H, AST 92 H, ALT 40, Alkaline Phosphatase 49, Total Creatine Kinase 1494 H, Total Protein 5.8 L, Albumin 2.6 L , Globulin 3.2, Albumin/Globulin Ratio 0.8 L Micro: Microbiology 05/19/22 19:00 Sputum, Tracheal Aspirate Gram Stain - Final 05/19/22 19:00 Sputum, Tracheal Aspirate Respiratory Culture - Preliminary Appears to be normal respiratory fartun. Further studies to follow. 05/19/22 09:10 Gastric Fluid/Contents Gastric Occult Blood - Final Occult Blood Positive ABG Data ABG results: ABG 05/19/22 19:26 Specimen Type ART Sample Site R Brach pH 7.34 L Bicarbonate Actual 23.5 Total CO2 25 Base Excess -2 O2 Saturation 97 O2 % 60 ABG pCO2 43.5 ABG pO2 101 H Jostin Test Positive Respiration Rate 14 O2 Delivery Device Adult Vent Vent Mode AC Tidal Volume 500 POC PEEP 5 Rhythm Strip Rhythm Strip: Sinus Tach Rate: 149 Ectopy: None Radiology Impression Brain CT 05/19/22 16:02 IMPRESSION: 1. Limited study due to motion artifact. There is no acute intracranial abnormality. There has been no significant change from reference exam. 2. Stable underlying senescent change with small vessel ischemia. Electronically Signed: Stepan Christopher MD at 17:47 EST , Chest X-Ray 05/19/22 17:30 IMPRESSION: No acute findings in the chest. Electronically Signed: Stepan Christopher MD at 18:03 EST , Abdomen/Pelvis CT 05/19/22 18:42 IMPRESSION: 1. Large right inguinal hernia with loops of large and small bowel in the hernia sac. 2. Bilateral lower lobe consolidation which may represent atelectasis or pneumonia. Electronically Signed: Stepan Christopher MD at 20:06 EST , Chest X-Ray 05/19/22 19:55 IMPRESSION: Endotracheal tube and feeding tube placement. Left lower lung atelectasis. Electronically Signed: Peewee Solis MD at 20:38 EST , Chest X-Ray 05/20/22 06:24 IMPRESSION: 1. Enteric tube side-port terminates at the gastroesophageal junction, should be advanced 5 cm. 2. Endotracheal tube terminates 3.5 cm above the erik. 3. Retrocardiac opacity, may represent atelectasis or infection. Electronically Signed: Lang Lamar MD at 6:57 EST , Charges/Coding Visit Charges Inpatient E&M: 06302 Init Hosp L2
[2022-05-20] MEDS: Acetaminophen 650 MG/20 ML UDC GT (17:37)
[2022-05-20] MEDS: 0.9% Normal Saline 1,000 ML 75 ML IV (17:44)
[2022-05-21] VITALS (32 sets, daily range): BP systolic 91–127; BP diastolic 55–80; PULSE 58–107; RESP 14–26; TEMP 37.4–38.2; O2SAT 92–100
[2022-05-21] MEDS: Propofol 10MG/Ml 1,000 MG/100 ML Bottle 31.4 MG CONT INF ×7 (00:06→23:43)
[2022-05-21] MEDS: LORazepam 2 MG/ML Syringe IV ×4 (03:01→21:28)
[2022-05-21 03:41] LABS: Absolute Lymphocyte Count 0.75 X10^3/uL (0.83-4.51); Absolute Neutrophil Count 2.9 X10^3/uL (2.0-7.7); Basophil# 0.02 X10^3/uL; Basophil% 0.5 % (0-1); Eosinophil# 0.06 X10^3/uL; Eosinophils% 1.5 % (0-5); Hematocrit 32.7 % (40-54); Hemoglobin 11.4 g/dL (13.0-16.5); Lymphocyte # 0.75 X10^3/ul (0.83-4.51); Lymphocyte % 18.2 % (19-41); Mean Corp Hgb Conc 34.9 g/dL (32-36); Mean Corpuscular Hgb 37.6 pg (27.0-32.0); Mean Corpuscular Volume 107.9 fL (80-94); Mean Platelet Vol. 10.2 fl (6.2-12.0); Monocyte% 9.7 % (0-10); NRBC Flagged by Analyzer 0 % (0-5); Neutrophil # 2.86 X10^3/uL (2.7-7.7); Neutrophil % 69.4 % (47-70); POSITIVE COUNT YES; Platelet Count 69 K/mm3 (150-450); Red Blood Count 3.03 M/mm3 (4.6-6.2); White Blood Count 4.1 K/mm3 (4.4-11.0)
[2022-05-21 03:59] LABS: ALB/GLOB Ratio 0.8 RATIO (0.9-2.4); AST(SGOT) 35 U/L (15-37); Alanine Aminotransfer ALT/SGPT 33 U/L (16-61); Albumin, Serum 2.3 g/dL (3.2-5.0); Alkaline Phosphatase 52 U/L (45-117); Anion Gap 9 (5-15); BUN 7 mg/dL (7-18); BUN/Creat Ratio 9.1 RATIO (10-20); CPK Total, Creatine Kinase 746 U/L (39-308); Calcium,Total 7.2 mg/dL (8.5-10.1); Chloride 108 mmol/L (98-107); Creatinine, Serum 0.77 mg/dL (0.70-1.30); EST Glomerular Filtration Rate 108 mL/min (>60); Est Glom Filt Rate - Afr Amer 131 mL/min (>60); Estimated Creatinine Clearance 109.18 ml/min; Glucose 85 mg/dL (74-106); Potassium 2.2 mmol/L (3.5-5.1); Protein, Total 5.3 g/dL (6.4-8.2); Sodium Level 144 mmol/L (136-145)
[2022-05-21] MEDS: KCL 40mEq in 0.9% NS 40 MEQ/1,000 ML IV.SOLN 100 MEQ IV (04:25)
[2022-05-21] MEDS: Potassium Chloride Oral Soln 20 MEQ/15 ML UDC 40 MEQ PO ×2 (04:26→16:16)
[2022-05-21 05:52] LABS: Magnesium 1.7 mg/dL (1.6-2.6); Phosphorus 1.8 mg/dL (2.5-4.9)
[2022-05-21] MEDS: Potassium Chloride 10mEq/100mL 10 MEQ/100 ML IV.SOLN. 100 MEQ IV BOLUS ×8 (06:25→17:16)
--- NOTE | 2022-05-21 06:53 | NURSING ---
notified of potassium level of 2.2. Orders given.
--- NOTE | 2022-05-21 07:08 | PN.CC_ITS ---
Assessment & Plan Assessment/Plan (1) Alcohol withdrawal: (2) EMMANUEL (acute kidney injury): (3) Alcohol withdrawal delirium: (4) Alcohol withdrawal seizure: QUALIFIERS: Complication of substance-induced condition: with delirium Qualified Code(s): F10.931 - Alcohol use, unspecified with withdrawal delirium; R56.9 - Unspecified convulsions PLAN: Plan RECOMMENDATIONS: 1. Continue propofol. 2. Okay to start tube feeds pending results of EGD 3. Spontaneous breathing and awakening trials per protocol 4. Continue empiric antibiotics pending cultures 5. Aggressive potassium repletion 6. Likely transition to GI volume from IV hydration pending EGD IMPRESSIONS: 1. Acute DTs following alcohol withdrawal Exact etiology of alcohol cessation is unclear. Patient does have a history of significant high levels of alcohol indicating probable alcohol abuse. Clinical suspicion for withdrawal seizures. EEG does not show status e pilepticus. We will continue with sedation. May need to initiate phenobarb. Thiamine and folate have been ordered. Anticipate patient will require mechanical ventilation for at least 3 to 4 days secondary to severe withdrawal. We will need to address willingness for alcohol cessation after the acute situation. 2. Acute hypercarbic respiratory failure secondary to possible aspiration pneumonia versus DTs Patient with a respiratory acidosis following intubation. Patient does not have a significant infiltrate on chest x-ray. Supportive devices have been adjusted to appropriate positions. Patient on minimal vent settings at this time, but likely will not be able to be extubated in the short-term secondary to problem #1. Anticipate 48 to 72 hours of mechanical ventilation. 3. Possible upper GI bleed Patient has received fluid resuscitation, but hemoglobin is down significantly. GI has been consulted and plans for an EGD later today. Patient currently on a PPI drip. Okay to scope patient while on ventilator from my p erspective. This may help with possible clipping. We will hold on tube feeds until GI can provide input. 4. Rhabdomyolysis/chronic thrombocytopenia/acute kidney injury/hyperbilirubi nemia/hyponatremia Clinical suspicion for alcohol leading to the current issues. This does complicate patient's care, management, recovery and prognosis. Patient appears to be responding well to current therapy. Do not believe patient has acute alcohol toxicity with elevated enzymes. Renal function is improving with hydration. Likely transition to GI volume resuscitation if okay with gastroenterology. 5. Probable refeeding syndrome Anticipate patient will require significant electrolyte repletion moving forward. Especially once tube feeds are initiated. TIME: 33 minutes critical care time spent addressing patient's acute DTs, respiratory failure, possible GI bleed, review of all data and collaboration with care team Subjective Subjective Patient did well overnight. Patient did have significant ectopy overnight leading to discontinuation of Precedex. However, morning labs have shown significant hypokalemia. Patient with intermittent agitation. Patient reportedly is to have an EGD later this morning. Objective Data Objective Data Vital Signs: Vital Signs Temp Pulse Resp BP Pulse Ox O2 Del Method FiO2 37.9 C H 107 H 26 H 103/66 100 Mechanical Ventilator 25 05/21/22 06:00 05/21/22 06:24 05/21/22 06:24 05/21/22 06:00 05/21/22 06:24 05/21/22 06:00 05/21/22 06:24 Oxygen Delivery Method Mechanical Ventilator Weight: 106.2 kg Body Mass Index (BMI) 31.5 Intake & Output: Intake and Output for Last 24 Hours 05/19/22 05/20/22 05/21/22 23:59 23:59 23:59 Intake Total 1236.79 / 1278.19 5258.09 / 5292.79 1430.06 / 1430.06 Output Total 900 / 900 2120 / 2440 1120 / 1120 Balance 336.79 / 378.19 3138.09 / 2852.79 310.06 / 310.06 Lab / Micro Data Attestation: I reviewed the patient's lab results. Result Diagrams: 05/21/22 03:25 05/21/22 03:25 Labs: Laboratory Results - last 24 hr 05/21/22 03:25: Sodium 144, Potassium 2.2 L*, Chloride 108 H, Carbon Dioxide 27.0, Anion Gap 9, BUN 7, Creatinine 0.77, Estim Creat Clear Calc 109.18, Est GFR (MDRD) Af Amer 131, Est GFR (MDRD) Non-Af 108, BUN/Creatinine Ratio 9.1 L, Glucose 85, Calcium 7.2 L, Total Bilirubin 1.40 H, AST 35, ALT 33, Alkaline Phosphatase 52, Total Creatine Kinase 746 H, Total Protein 5.3 L, Albumin 2.3 L, Globulin 3.0, Albumin/Globulin Ratio 0.8 L 05/21/22 03:25: WBC 4.1 L, RBC 3.03 L, Hgb 11.4 L, Hct 32.7 L, MCV 107.9 H, MCH 37.6 H, MCHC 34.9, RDW Std Deviation 51.0 H, RDW Coeff of Valerio 13.0, Plt Count 69 L, MPV 10.2, Immature Gran % (Auto) 0.700, Neut % (Auto) 69.4, Lymph % (Auto) 18.2 L, [place] % (Auto) 9.7, Eos % (Auto) 1.5, Baso % (Auto) 0.5, Absolute Neuts (auto) 2.9, Absolute Lymphs (auto) 0.75 L, Nucleated RBC % 0 05/21/22 03:25: Phosphorus 1.8 L, Magnesium 1.7 Micro: Microbiology 05/19/22 19:00 Sputum, Tracheal Aspirate Gram Stain - Final 05/19/22 19:00 Sputum, Tracheal Aspirate Respiratory Culture - Preliminary Appears to be normal respiratory fartun. Further studies to follow. 05/19/22 09:10 Gastric Fluid/Contents Gastric Occult Blood - Final Occult Blood Positive Rhythm Strip Rhythm Strip: Sinus Rhythm Rate: 62 Ectopy: PVC(s) Physical Exam Const Constitutional Narrative: RASS -1 with good vent synchrony. Appears older than stated age. General Appearance: lethargic and patient mechanically ventilated; Negative for ill appearing HEENT normocephalic, head/scalp atraumatic and moist oral mucous membranes Eyes PERRL and EOMs intact bilaterally Eyes Narrative: Scleral injection noted Neck full ROM and no lymphadenopathy Chest inspection of chest normal Resp normal respiratory effort Effort and Inspection: Negative for actively coughing Auscultation: Negative for rales, rhonchi or wheezes Cardio regular rate, regular rhythm, S1 normal heart sound, S2 normal heart sound, no murmurs, no rub and no gallops GI normal to inspection, nondistended, normoactive bowel sounds GI Narrative: Obese Narrative: Large inguinal hernia Extremity General Extremity: edema; Negative for clubbing Skin no rashes or lesions noted Neuro Sensorium / Orientation: sedated on vent Psych Mood & Affect: labile affect Charges/Coding Procedures Hospitalists Procedures: 87318 Critial Care 1st Hr
[2022-05-21] MEDS: Chlorhexidine 15 ML PO ×2 (09:22→20:55)
[2022-05-21] MEDS: TITRATION PARAMETER CHANGE 1 EACH IV (09:22)
--- NOTE | 2022-05-21 11:55 | PCM.PN.HOSP ---
Subjective Subjective Is intubated and sedated. Significant agitation with weaning of sedation. Plan is for EGD later today. No extubation till mental status improves Objective Data Objective Data Vital Signs: Vital Signs Temp Pulse Resp BP Pulse Ox O2 Del Method FiO2 100.4 F H 89 15 93/66 98 Mechanical Ventilator 25 05/21/22 11:00 05/21/22 11:00 05/21/22 11:00 05/21/22 11:00 05/21/22 11:00 05/21/22 11:00 05/21/22 11:00 Oxygen Delivery Method Mechanical Ventilator Weight: 106.2 kg Body Mass Index (BMI) 31.5 Intake & Output: Intake and Output for Last 24 Hours 05/19/22 05/20/22 05/21/22 23:59 23:59 23:59 Intake Total 1236.79 / 1278.19 5258.09 / 5292.79 2666.62 / 2666.62 Output Total 900 / 900 2120 / 2440 1120 / 1120 Balance 336.79 / 378.19 3138.09 / 2852.79 1546.62 / 1546.62 Lab / Micro Data Result Diagrams: 05/21/22 03:25 05/21/22 03:25 Labs: Laboratory Results - last 24 hr 05/21/22 03:25: Sodium 144, Potassium 2.2 L*, Chloride 108 H, Carbon Dioxide 27.0, Anion Gap 9, BUN 7, Creatinine 0.77, Estim Creat Clear Calc 109.18, Est GFR (MDRD) Af Amer 131, Est GFR (MDRD) Non-Af 108, BUN/Creatinine Ratio 9.1 L, Glucose 85, Calcium 7.2 L, Total Bilirubin 1.40 H, AST 35, ALT 33, Alkaline Phosphatase 52, Total Creatine Kinase 746 H, Total Protein 5.3 L, Albumin 2.3 L, Globulin 3.0, Albumin/Globulin Ratio 0.8 L 05/21/22 03:25: WBC 4.1 L, RBC 3.03 L, Hgb 11.4 L, Hct 32.7 L, MCV 107.9 H, MCH 37.6 H, MCHC 34.9, RDW Std Deviation 51.0 H, RDW Coeff of Valerio 13.0, Plt Count 69 L, MPV 10.2, Immature Gran % (Auto) 0.700, Neut % (Auto) 69.4, Lymph % (Auto) 18.2 L, [place] % (Auto) 9.7, Eos % (Auto) 1.5, Baso % (Auto) 0.5, Absolute Neuts (auto) 2.9, Absolute Lymphs (auto) 0.75 L, Nucleated RBC % 0 05/21/22 03:25: Phosphorus 1.8 L, Magnesium 1.7 Micro: Microbiology 05/19/22 19:00 Sputum, Tracheal Aspirate Gram Stain - Final 05/19/22 19:00 Sputum, Tracheal Aspirate Respiratory Culture - Preliminary Appears to be normal respiratory fartun. Further studies to follow. 05/19/22 09:10 Gastric Fluid/Contents Gastric Occult Blood - Final Occult Blood Positive Rhythm Strip Rhythm Strip: Sinus Rhythm Rate: 62 Ectopy: PVC(s) Physical Exam Const Constitutional Narrative: Upper middle-aged white male lying in bed, patient intubated and sedated on the ventilator, appears older than stated age HEENT head/scalp atraumatic and moist oral mucous membranes HEENT Narrative: ET tube and OG in place Head and Scalp: normocephalic Eyes PERRL and conjunctivae normal Eyes Narrative: No scleral icterus Resp no retractions, no use of accessory muscles and clear to auscultation bilaterally Resp Narrative: Usually diminished but clear Auscultation: Negative for crackles, rhonchi or wheezes Cardio regular rate, regular rhythm, S1 normal heart sound, S2 normal heart sound, no murmurs, no rub, no gallops and no clicks GI normal to inspection, nondistended, normoactive bowel sounds, soft to palpation and non-tender Extremity no clubbing, cyanosis or edema Neuro Neuro Narrative: Moves all extremities spontaneously, responds to noxious stimuli Assessment & Plan Assessment/Plan (1) Alcoholic hepatitis: (2) Alcohol withdrawal seizure: QUALIFIERS: Complication of substance-induced condition: with delirium Qualified Code(s): F10.931 - Alcohol use, unspecified with withdrawal delirium; R56.9 - Unspecified convulsions (3) Alcohol withdrawal delirium: (4) Acute hypokalemia: (5) Aspiration pneumonia: QUALIFIERS: Aspiration pneumonia type: due to gastric secretions Laterality: bilateral Lung location: lower lobe of lung Qualified Code(s): J69.0 - Pneumonitis due to inhalation of food and vomit (6) Acute hypercapnic respiratory failure: (7) GI bleed: (8) Rhabdomyolysis: PLAN: Plan Acute hypercapnic respiratory failure -Suspect multifactorial with suspected aspiration and DTs -Sputum culture shows only normal fartun -Continue empiric antibiotics with Unasyn day 2 of 7 -Patient will remain intubated until mental status improves -Continue sedation as ordered Acute alcohol withdrawal with DTs -Continue propofol and as needed Precedex -May need to add phenobarbital depending on response -Continue thiamine and folate as ordered -180 consultation after extubation if patient willing to go through the process for ongoing alcohol abstinence Possible upper GI bleed -Hemoglobin down but now stabilized -Continue IV PPI with drip -Tube feeds on hold until EGD done later today -Gastroccult was positive -GI following Mild anemia -Hemoglobin stable 11.4 -Macrocytic in nature -Continue to monitor -Work-up as above Alcoholic hepatitis -GI is following -Madrey score is 23 -No need for steroid therapy at this time -Continue to monitor Chronic thrombocytopenia -Likely related to toxic effect of alcohol to marrow/splenic sequestration with alcoholism and suspected liver disease -Counts are currently stable at 69,000 -Continue to monitor EMMANUEL -Likely related to acute dehydration -Serum creatinine at peak was 1.4 -Down to 0.77 -Overall resolved -Continue to monitor Hyponatremia -Resolved Electrolyte disturbance -Patient with hypokalemia/hypomagnesemia/hypophosphatemia -Aggressive replacement -Concern for refeeding syndrome once p.o. intake has initiated with history of alcoholism DVT prophylaxis -Chemoprophylaxis on hold secondary to suspected GI bleed -Continue DVT prophylaxis with SCDs CODE STATUS -Full code Charges/Coding Visit Charges Inpatient E&M: 98577 Subs Hosp L2
[2022-05-21] MEDS: QUEtiapine 25 MG Tablet NG ×2 (12:27→20:53)
[2022-05-21] MEDS: Vital High Protein 1,000 ML 20 ML GT (12:27)
--- NOTE | 2022-05-21 13:20 | CASEMGMT ---
Addendum entered by Abby Cuellar 05/21/22 13:47: MAUREEN RICHMOND called Kimberly back to inquire how she was doing. Kimberly states she is waiting on a long distance call from her sister to see if she can help her. Kimberly states that her sister Sophy Welhs lives in [facility]. Kimberly states her daughter Leti lives in [place]. Per Kimberly, the patient lives with her in a condo. Kimberly states that patient is normally independent but thinks he has not been doing well for 2 weeks. Kimberly states she is note good with dates and times as she is 89 yo. Kimberly states she does not know how much alcohol her son drinks, but it must be alot, since he is an alcoholic. Kimberly states she thinks son stopped drinking 6 days ago on his own to quit. MAUREEN RICHMOND inquired if Kimberly needed anything, she states just waiting on her sister to call. CM updated SW regarding conversation. ICU stave bolt equalizer updated regarding information. CM will continue to follow this patient and plan for a safe discharge. Original Note: MAUREEN RICHMOND attempted to call patient's mother, Kimberly, to complete initial assessment. Kimberly stated that she is not able to talk right now as she is currently in an emergency situation. MAUREEN RICHMOND inquired what her emergancy was and mother would not state situation. MAUREEN RICHMOND inquired when would be a good time to call her back and Kimberly states I don't know and hung up the phone. MAUREEN RICHMOND updated SW regarding conversation.
[2022-05-21 13:42] LABS: Anion Gap 7 (5-15); BUN 6 mg/dL (7-18); BUN/Creat Ratio 9.5 RATIO (10-20); Calcium,Total 7.4 mg/dL (8.5-10.1); Chloride 110 mmol/L (98-107); Creatinine, Serum 0.63 mg/dL (0.70-1.30); EST Glomerular Filtration Rate 136 mL/min (>60); Est Glom Filt Rate - Afr Amer 165 mL/min (>60); Estimated Creatinine Clearance 133.44 ml/min; Glucose 85 mg/dL (74-106); Magnesium 2.1 mg/dL (1.6-2.6); Phosphorus 2.4 mg/dL (2.5-4.9); Potassium 2.7 mmol/L (3.5-5.1); Sodium Level 143 mmol/L (136-145)
[2022-05-21] MEDS: Propofol 10MG/Ml 1,000 MG/100 ML Bottle 28.3 MG CONT INF ×2 (14:09→17:16)
[2022-05-21] MEDS: Acetaminophen 650 MG/20 ML UDC GT (16:15)
--- NOTE | 2022-05-21 17:23 | OP.EGD_ITS ---
Patient Name: Delmar Robins Procedure Date: 05/21/2022 11:16 AM Date of : 1960 Age: 62 Procedure: Upper GI endoscopy Indications: Epigastric abdominal pain, Iron deficiency anemia, Melena Providers: Wayne Sam DO Medicines: Monitored Anesthesia Care Patient Profile: This is a 62 year old male. Refer to note in patient chart for documentation of history and physical. Patient has symptoms of acute vomiting. Complications: No immediate complications. Procedure: Pre-Anesthesia Assessment: - Prior to the procedure, a History and Physical was performed, and patient medications and allergies were reviewed. The patient is competent. The risks and benefits of the procedure and the sedation options and risks were discussed with the patient. All questions were answered and informed consent was obtained. Patient identification and proposed procedure were verified by the physician in the pre-procedure area. Mental Status Examination: alert and oriented. Airway Examination: normal oropharyngeal airway and neck mobility. Respiratory Examination: clear to auscultation. CV Examination: normal. Prophylactic Antibiotics: The patient does not require prophylactic antibiotics. Prior Anticoagulants: The patient has taken no previous anticoagulant or antiplatelet agents. ASA Grade Assessment: II - A patient with mild systemic disease. After reviewing the risks and benefits, the patient was deemed in satisfactory condition to undergo the procedure. The anesthesia plan was to use moderate sedation / analgesia (conscious sedation). Immediately prior to administration of medications, the patient was re-assessed for adequacy to receive sedatives. The heart rate, respiratory rate, oxygen saturations, blood pressure, adequacy of pulmonary ventilation, and response to care were monitored throughout the procedure. The physical status of the patient was re-assessed after the procedure. After obtaining informed consent, the endoscope was passed under direct vision. Throughout the procedure, the patient's blood pressure, pulse, and oxygen saturations were monitored continuously. The gastroscope was introduced through the mouth, and advanced to the second part of duodenum. The upper GI endoscopy was accomplished without difficulty. The patient tolerated the procedure well. Scope In: 11:35:41 AM Scope Out: 11:46:36 AM Total Procedure Duration Time 0 hours 10 minutes 55 seconds Findings: LA Grade D (one or more mucosal breaks involving at least 75% of esophageal circumference) esophagitis with bleeding was found 35 to 39 cm from the incisors. Coagulation for hemostasis using heater probe was successful. Estimated blood loss was minimal. Diffuse severe inflammation with hemorrhage characterized by congestion (edema), erosions, erythema and friability was found in the entire examined stomach. Coagulation for hemostasis using heater probe was successful. Estimated blood loss was minimal. The examined jejunum was normal. Impression: - LA Grade D erosive esophagitis. Treated with a heater probe. - Acute gastritis with hemorrhage. Treated with a heater probe. - Normal examined jejunum. - No specimens collected. Recommendation: - Return patient to ICU for ongoing care. - Resume previous diet. - Use Protonix (pantoprazole) 80 mg IV BID. - Continue present medications. Procedure Code(s): --- Professional --- 50257, Esophagogastroduodenoscopy, flexible, transoral; with control of bleeding, any method CPT copyright 2017 [employer]. All rights reserved. The codes documented in this report are preliminary and upon roller mechanic review may be revised to meet current compliance requirements. Wayne Sam DO 05/21/2022 5:23:22 PM This report has been signed electronically. Number of Addenda: 0 Note Initiated On: 05/21/2022 11:16 AM
--- NOTE | 2022-05-21 17:23 | OP.CCLET_ITS ---
05/21/2022 Adalberto Daniel Re : Upper GI endoscopy procedure for Delmar Diaz Fredy This procedure was performed on May. My impressions and recommendations are as follows: Impressions : - LA Grade D erosive esophagitis. Treated with a heater probe. - Acute gastritis with hemorrhage. Treated with a heater probe. - Normal examined jejunum. - No specimens collected. Recommendations : - Return patient to ICU for ongoing care. - Resume previous diet. - Use Protonix (pantoprazole) 80 mg IV BID. - Continue present medications. My findings are described in the full procedure note, which is enclosed. If I can be of further assistance, please feel free to contact me at . Sincerely, Wayne Sam, 05/21/2022 5:23:22 PM This report has been signed electronically.
[2022-05-22] VITALS (37 sets, daily range): BP systolic 91–127; BP diastolic 56–76; PULSE 81–97; RESP 8–19; TEMP 36.8–38.1; O2SAT 93–98
[2022-05-22] MEDS: KCL 40mEq in 0.9% NS 40 MEQ/1,000 ML IV.SOLN 100 MEQ IV ×2 (00:57→12:32)
[2022-05-22] MEDS: Propofol 10MG/Ml 1,000 MG/100 ML Bottle 31.4 MG CONT INF ×8 (02:55→23:36)
[2022-05-22] MEDS: 0.9% Saline Lock 10 ML Syringe IV (03:00)
[2022-05-22 03:28] LABS: Phosphorus 2.9 mg/dL (2.5-4.9)
[2022-05-22 03:29] LABS: Anion Gap 4 (5-15); BUN 5 mg/dL (7-18); BUN/Creat Ratio 8.4 RATIO (10-20); CPK Total, Creatine Kinase 531 U/L (39-308); Calcium,Total 6.7 mg/dL (8.5-10.1); Chloride 111 mmol/L (98-107); Creatinine, Serum 0.59 mg/dL (0.70-1.30); EST Glomerular Filtration Rate 147 mL/min (>60); Est Glom Filt Rate - Afr Amer 178 mL/min (>60); Estimated Creatinine Clearance 142.49 ml/min; Glucose 98 mg/dL (74-106); Magnesium 1.8 mg/dL (1.6-2.6); Potassium 2.9 mmol/L (3.5-5.1); Sodium Level 142 mmol/L (136-145)
[2022-05-22 03:38] LABS: Absolute Lymphocyte Count 0.79 X10^3/uL (0.83-4.51); Absolute Neutrophil Count 2.5 X10^3/uL (2.0-7.7); Basophil# 0.02 X10^3/uL; Basophil% 0.5 % (0-1); Eosinophil# 0.12 X10^3/uL; Hemoglobin 10.8 g/dL (13.0-16.5); Lymphocyte # 0.79 X10^3/ul (0.83-4.51); Mean Corp Hgb Conc 33.8 g/dL (32-36); Mean Corpuscular Hgb 37.6 pg (27.0-32.0); Mean Corpuscular Volume 111.5 fL (80-94); Mean Platelet Vol. 10.1 fl (6.2-12.0); Monocyte# 0.47 X10^3/uL; Monocyte% 11.9 % (0-10); NRBC Flagged by Analyzer 0 % (0-5); Neutrophil # 2.51 X10^3/uL (2.7-7.7); Neutrophil % 63.6 % (47-70); POSITIVE COUNT YES; Platelet Count 79 K/mm3 (150-450); RBC Distribution Width CV 13.4 % (11.6-14.6); RBC Distribution Width SD 54.9 fl (35.1-43.9); Red Blood Count 2.87 M/mm3 (4.6-6.2)
[2022-05-22] MEDS: LORazepam 2 MG/ML Syringe IV ×4 (03:47→21:01)
[2022-05-22] MEDS: Acetaminophen 650 MG/20 ML UDC GT (03:47)
[2022-05-22] MEDS: Magnesium Sulfate 4gm/100mL 4 GM/100 ML IV.SOLN. IV (04:48)
[2022-05-22] MEDS: Potassium Chloride 10mEq/100mL 10 MEQ/100 ML IV.SOLN. 100 MEQ IV BOLUS ×3 (06:24→08:16)
--- NOTE | 2022-05-22 07:37 | PN.CC_ITS ---
Assessment & Plan Assessment/Plan (1) Alcohol withdrawal: (2) EMMANUEL (acute kidney injury): (3) Alcohol withdrawal delirium: (4) Alcohol withdrawal seizure: QUALIFIERS: Complication of substance-induced condition: with delirium Qualified Code(s): F10.931 - Alcohol use, unspecified with withdrawal delirium; R56.9 - Unspecified convulsions PLAN: Plan RECOMMENDATIONS: 1. Continue propofol with PRN ativan 2. Continue tube feeds and PPI. 3. Spontaneous breathing and awakening trials per protocol 4. Continue empiric antibiotics pending cultures 5. Aggressive potassium repletion 6. Likely transition to GI volume from IV hydration pending EGD IMPRESSIONS: 1. Acute DTs following alcohol withdrawal Exact etiology of alcohol cessation is unclear. Patient does have a history of significant high levels of alcohol indicating probable alcohol abuse. Clinical suspicion for withdrawal seizures. EEG does not show status epilep ticus. We will continue with sedation. May need to initiate phenobarb. Thiamine and folate have been ordered. Clinical suspicion is that fever is secondary to withdrawal. Anticipate patient will require mechanical ventilation for at least 3 to 4 days secondary to severe withdrawal. We will need to address willingness for alcohol cessation after the acute situation. 2. Acute hypercarbic respiratory failure secondary to possible aspiration pneumonia versus DTs Patient with a respiratory acidosis following intubation. Patient does not have a significant infiltrate on chest x-ray. Supportive devices have been adjusted to appropriate positions. Patient on minimal vent settings at this time, but likely will not be able to be extubated in the short-term secondary to problem #1. Anticipate 48 to 72 hours of mechanical ventilation. 3. Acute blood loss anemia secondary to upper GI bleed secondary to grade D esophagitis Patient has received fluid resuscitation, but hemoglobin is down significantly. GI has been consulted and EGD with intervention was completed yesterday. Patient continued on PPI twice daily. Patient appears to be tolerating tube feeds well. 4. Rhabdomyolysis/chronic thrombocytopenia/acute kidney injury/hyperbilirubinemia/hyponatremia Clinical suspicion for alcohol leading to the current issues. This does complicate patient's care, management, recovery and prognosis. Patient appears to be responding well to current therapy. Do not believe patient has acute alcohol toxicity with elevated enzymes. Renal function is improving with hydration. Likely transition to GI volume resuscitation if okay with gastroenterology. 5. Probable refeeding syndrome Anticipate patient will require significant electrolyte repletion moving forward. Especially once tube feeds are initiated. TIME: 35 minutes critical care time spent addressing patient's acute DTs, respiratory failure, possible GI bleed, review of all data and collaboration with care team Subjective Subjective Patient did okay overnight. Patient continues to have intermittent agitation requiring as needed Ativan. No significant hypotension has been noted. Patient was initiated on tube feeds and is now up to full tube feeds and tolerating well. Objective Data Objective Data Patient did have an EGD at the bedside yesterday resulting in cauterization of grade D esophagitis. Vital Signs: Vital Signs Temp Pulse Resp BP Pulse Ox O2 Del Method FiO2 37.6 C H 88 14 103/65 97 Mechanical Ventilator 25 05/22/22 07:00 05/22/22 07:00 05/22/22 07:00 05/22/22 07:00 05/22/22 07:00 05/22/22 07:00 05/22/22 07:00 Oxygen Delivery Method Mechanical Ventilator Weight: 110 kg Body Mass Index (BMI) 31.5 Intake & Output: Intake and Output for Last 24 Hours 05/20/22 05/21/22 05/22/22 23:59 23:59 23:59 Intake Total 5258.09 / 5292.79 5321.8233 / 5350.7233 1648.26 / 1648.26 Output Total 2120 / 2440 2125 / 2125 475 / 475 Balance 3138.09 / 2852.79 3196.8233 / 3225.7233 1173.26 / 1173.26 Lab / Micro Data Attestation: I reviewed the patient's lab results. Result Diagrams: 05/22/22 03:00 05/22/22 03:00 Labs: Laboratory Results - last 24 hr 05/21/22 12:45: Sodium 143, Potassium 2.7 L*, Chloride 110 H, Carbon Dioxide 26.0, Anion Gap 7, BUN 6 L, Creatinine 0.63 L, Estim Creat Clear Calc 133.44, Est GFR (MDRD) Af Amer 165, Est GFR (MDRD) Non-Af 136, BUN/Creatinine Ratio 9.5 L, Glucose 85, Calcium 7.4 L, Phosphorus 2.4 L, Magnesium 2.1 05/22/22 03:00: Sodium 142, Potassium 2.9 L, Chloride 111 H, Carbon Dioxide 27.0, Anion Gap 4 L, BUN 5 L, Creatinine 0.59 L, Estim Creat Clear Calc 142.49, Est GFR (MDRD) Af Amer 178, Est GFR (MDRD) Non-Af 147, BUN/Creatinine Ratio 8.4 L, Glucose 98, Calcium 6.7 L, Magnesium 1.8, Total Creatine Kinase 531 H 05/22/22 03:00: WBC 4.0 L, RBC 2.87 L, Hgb 10.8 L, Hct 32.0 L, MCV 111.5 H, MCH 37.6 H, MCHC 33.8, RDW Std Deviation 54.9 H, RDW Coeff of Valerio 13.4, Plt Count 79 L, MPV 10.1, Immature Gran % (Auto) 1.000 H, Neut % (Auto) 63.6, Lymph % (Auto) 20.0, [place] % (Auto) 11.9 H, Eos % (Auto) 3.0, Baso % (Auto) 0.5, Absolute Neuts (auto) 2.5, Absolute Lymphs (auto) 0.79 L, Nucleated RBC % 0 05/22/22 03:00: Phosphorus 2.9 Micro: Microbiology 05/19/22 19:00 Sputum, Tracheal Aspirate Gram Stain - Final 05/19/22 19:00 Sputum, Tracheal Aspirate Respiratory Culture - Preliminary Appears to be normal respiratory fartun. Further studies to follow. 05/19/22 09:10 Gastric Fluid/Contents Gastric Occult Blood - Final Occult Blood Positive Rhythm Strip Rhythm Strip: Sinus Rhythm Rate: 89 Ectopy: PVC(s) Physical Exam Const Constitutional Narrative: RASS -1 with good vent synchrony. Appears older than stated age. Slightly diaphoretic. General Appearance: lethargic and patient mechanically ventilated; Negative for ill appearing HEENT normocephalic, head/scalp atraumatic and moist oral mucous membranes Mouth: endotracheal tube in place and OG tube in place Eyes PERRL and EOMs intact bilaterally Eyes Narrative: Scleral injection noted Neck full ROM and no lymphadenopathy Chest inspection of chest normal Resp normal respiratory effort Effort and Inspection: Negative for actively coughing Auscultation: Negative for rales, rhonchi or wheezes Cardio regular rate, regular rhythm, S1 normal heart sound, S2 normal heart sound, no murmurs, no rub and no gallops GI normal to inspection, nondistended, normoactive bowel sounds GI Narrative: Obese Narrative: Large inguinal hernia Extremity General Extremity: edema; Negative for clubbing Skin no rashes or lesions noted Neuro Sensorium / Orientation: sedated on vent Psych Mood & Affect: labile affect and flat affect Charges/Coding Procedures Hospitalists Procedures: 54953 Critial Care 1st Hr
[2022-05-22] MEDS: Potassium Chloride Oral Soln 20 MEQ/15 ML UDC 40 MEQ PO ×2 (07:50→12:33)
[2022-05-22] MEDS: Chlorhexidine 15 ML PO ×2 (07:51→20:49)
[2022-05-22] MEDS: QUEtiapine 25 MG Tablet 50 MG NG ×2 (07:52→20:50)
[2022-05-22] MEDS: Vital High Protein 1,000 ML 50 ML GT (08:16)
--- NOTE | 2022-05-22 12:18 | PCM.PN.HOSP ---
Subjective Subjective Patient remains with significant agitation with sedation vacations. No specific issues overnight other than agitation. Hypokalemia improving however still low. Objective Data Objective Data Vital Signs: Vital Signs Temp Pulse Resp BP Pulse Ox O2 Del Method FiO2 98.8 F 84 12 98/68 97 Mechanical Ventilator 21 05/22/22 11:00 05/22/22 11:33 05/22/22 11:00 05/22/22 11:00 05/22/22 11:00 05/22/22 11:00 05/22/22 11:00 Oxygen Delivery Method Mechanical Ventilator Weight: 110 kg Body Mass Index (BMI) 31.5 Intake & Output: Intake and Output for Last 24 Hours 05/20/22 05/21/22 05/22/22 23:59 23:59 23:59 Intake Total 5258.09 / 5292.79 5321.8233 / 5350.7233 2626.32 / 2626.32 Output Total 2120 / 2440 2125 / 2125 600 / 600 Balance 3138.09 / 2852.79 3196.8233 / 3225.7233 2026.32 / 2026.32 Lab / Micro Data Result Diagrams: 05/22/22 03:00 05/22/22 03:00 Labs: Laboratory Results - last 24 hr 05/21/22 12:45: Sodium 143, Potassium 2.7 L*, Chloride 110 H, Carbon Dioxide 26.0, Anion Gap 7, BUN 6 L, Creatinine 0.63 L, Estim Creat Clear Calc 133.44, Est GFR (MDRD) Af Amer 165, Est GFR (MDRD) Non-Af 136, BUN/Creatinine Ratio 9.5 L, Glucose 85, Calcium 7.4 L, Phosphorus 2.4 L, Magnesium 2.1 05/22/22 03:00: Sodium 142, Potassium 2.9 L, Chloride 111 H, Carbon Dioxide 27.0, Anion Gap 4 L, BUN 5 L, Creatinine 0.59 L, Estim Creat Clear Calc 142.49, Est GFR (MDRD) Af Amer 178, Est GFR (MDRD) Non-Af 147, BUN/Creatinine Ratio 8.4 L, Glucose 98, Calcium 6.7 L, Magnesium 1.8, Total Creatine Kinase 531 H 05/22/22 03:00: WBC 4.0 L, RBC 2.87 L, Hgb 10.8 L, Hct 32.0 L, MCV 111.5 H, MCH 37.6 H, MCHC 33.8, RDW Std Deviation 54.9 H, RDW Coeff of Valerio 13.4, Plt Count 79 L, MPV 10.1, Immature Gran % (Auto) 1.000 H, Neut % (Auto) 63.6, Lymph % (Auto) 20.0, [place] % (Auto) 11.9 H, Eos % (Auto) 3.0, Baso % (Auto) 0.5, Absolute Neuts (auto) 2.5, Absolute Lymphs (auto) 0.79 L, Nucleated RBC % 0 05/22/22 03:00: Phosphorus 2.9 Micro: Microbiology 05/19/22 19:00 Sputum, Tracheal Aspirate Gram Stain - Final 05/19/22 19:00 Sputum, Tracheal Aspirate Respiratory Culture - Final 05/19/22 09:10 Gastric Fluid/Contents Gastric Occult Blood - Final Occult Blood Positive Rhythm Strip Rhythm Strip: Sinus Rhythm Rate: 89 Ectopy: PVC(s) Physical Exam Const Constitutional Narrative: Upper middle-aged white male lying in bed, patient intubated and sedated on the ventilator, appears older than stated age HEENT normocephalic, head/scalp atraumatic and moist oral mucous membranes HEENT Narrative: Right pupil with previous injury and abnormal, left pupil approximately 2 mm and reactive-likely constricted because of fentanyl, ET tube and OG in place Head and Scalp: normocephalic Resp no retractions, no use of accessory muscles and clear to auscultation bilaterally Resp Narrative: Diffusely diminished but clear, patient mechanically ventilated Auscultation: Negative for crackles, rhonchi or wheezes Cardio regular rate, regular rhythm, S1 normal heart sound, S2 normal heart sound, no murmurs, no rub, no gallops and no clicks GI normal to inspection, nondistended, normoactive bowel sounds, soft to palpation and non-tender Extremity no clubbing, cyanosis or edema Extremity Narrative: No significant edema appreciated other than hands bilaterally distal to restraints Neuro Neuro Narrative: Moves all extremities spontaneously, responds to noxious stimuli but intubated and sedated, becomes very agitated on sedation vacations Psych Psych Narrative: Unable to cooperate secondary to intubation and sedation Assessment & Plan Assessment/Plan (1) Alcoholic hepatitis: (2) Alcohol withdrawal seizure: QUALIFIERS: Complication of substance-induced condition: with delirium Qualified Code(s): F10.931 - Alcohol use, unspecified with withdrawal delirium; R56.9 - Unspecified convulsions (3) Alcohol withdrawal delirium: (4) Acute hypokalemia: (5) Aspiration pneumonia: QUALIFIERS: Aspiration pneumonia type: due to gastric secretions Laterality: bilateral Lung location: lower lobe of lung Qualified Code(s): J69.0 - Pneumonitis due to inhalation of food and vomit (6) Acute hypercapnic respiratory failure: (7) GI bleed: (8) Rhabdomyolysis: PLAN: Plan Acute hypercapnic respiratory failure -Suspect multifactorial with suspected aspiration and DTs -Sputum culture shows only normal fartun -Continue empiric antibiotics with Unasyn day 3 of 7 -Patient will remain intubated until mental status improves--> anticipate that he will need ET tube at least until Wednesday -Continue sedation as ordered Acute alcohol withdrawal with DTs -Continue propofol and fentanyl -Seroquel low-dose 50 mg enterally. twice daily added to help with agitation -May need to add phenobarbital depending on response -Continue thiamine and folate as ordered--> okay to discontinue thiamine 200 mg after 3 days which would be tomorrow -180 consultation after extubation if patient willing to go through the process for ongoing alcohol abstinence Grade D erosive esophagitis/acute gastritis with hemorrhage -Hemoglobin down but now stabilized -EGD done on 05/21/2022 shows grade D erosive esophagitis that was treated with heater probe, acute gastritis with hemorrhage that was treated with heater probe and normal small bowel exam into the jejunum -Change IV drip to 80 mg IV twice daily per GI recommendations and anticipate transition to 40 mg twice daily once able to take enterally, +/-Carafate -Tube feed initiated -GI following Mild anemia -Hemoglobin electively stable at 10.8 this morning -Slight drop however patient is positive about 8 and half liters for the hospitalization -Macrocytic in nature -Continue to monitor Alcoholic hepatitis -Madrey score is 23 -No need for steroid therapy at this time -Continue to monitor -GI following-appreciate input Chronic thrombocytopenia -Likely related to toxic effect of alcohol to marrow/splenic sequestration with alcoholism and suspected liver disease -Counts are currently trending up and stable at 79,000 -Continue to monitor EMMANUEL -Resolved -Suspect related to acute dehydration upon presentation Electrolyte disturbance -Phos and mag levels have now normalized -Potassium is improving however still low at 2.9 -Continue with aggressive replacement -Recheck BMP this afternoon to -Aggressive replacement -We will repeat BMP with mag and Phos again tomorrow DVT prophylaxis -Chemoprophylaxis on hold secondary to suspected GI bleed--> if hemoglobin remained stable may consider reinitiation of DVT prophylaxis with enoxaparin tomorrow -Continue DVT prophylaxis with SCDs CODE STATUS -Full code Charges/Coding Visit Charges Inpatient E&M: 74302 Subs Hosp L2
[2022-05-22 15:20] LABS: Anion Gap 2 (5-15); BUN 4 mg/dL (7-18); BUN/Creat Ratio 7.2 RATIO (10-20); Calcium,Total 6.5 mg/dL (8.5-10.1); Chloride 116 mmol/L (98-107); Creatinine, Serum 0.55 mg/dL (0.70-1.30); EST Glomerular Filtration Rate 159 mL/min (>60); Est Glom Filt Rate - Afr Amer 192 mL/min (>60); Estimated Creatinine Clearance 152.85 ml/min; Glucose 107 mg/dL (74-106); Potassium 5.4 mmol/L (3.5-5.1); Sodium Level 143 mmol/L (136-145)
[2022-05-23] VITALS (35 sets, daily range): BP systolic 88–137; BP diastolic 55–98; PULSE 85–110; RESP 13–18; TEMP 36.9–38.1; O2SAT 92–97
[2022-05-23] MEDS: Propofol 10MG/Ml 1,000 MG/100 ML Bottle 31.4 MG CONT INF ×4 (03:04→10:29)
[2022-05-23 03:07] LABS: Absolute Lymphocyte Count 0.61 X10^3/uL (0.83-4.51); Absolute Neutrophil Count 1.6 X10^3/uL (2.0-7.7); Basophil# 0.02 X10^3/uL; Basophil% 0.7 % (0-1); Eosinophil# 0.14 X10^3/uL; Eosinophils% 4.7 % (0-5); Hematocrit 30.9 % (40-54); Hemoglobin 9.9 g/dL (13.0-16.5); Lymphocyte # 0.61 X10^3/ul (0.83-4.51); Lymphocyte % 20.7 % (19-41); Mean Corpuscular Hgb 37.9 pg (27.0-32.0); Mean Corpuscular Volume 118.4 fL (80-94); Monocyte# 0.53 X10^3/uL; NRBC Flagged by Analyzer 0 % (0-5); Neutrophil # 1.63 X10^3/uL (2.7-7.7); Neutrophil % 55.2 % (47-70); POSITIVE COUNT YES; Platelet Count 85 K/mm3 (150-450); RBC Distribution Width CV 13.4 % (11.6-14.6); RBC Distribution Width SD 57.9 fl (35.1-43.9); Red Blood Count 2.61 M/mm3 (4.6-6.2)
[2022-05-23 03:30] LABS: ALB/GLOB Ratio 0.6 RATIO (0.9-2.4); AST(SGOT) 46 U/L (15-37); Alanine Aminotransfer ALT/SGPT 28 U/L (16-61); Albumin, Serum 1.6 g/dL (3.2-5.0); Alkaline Phosphatase 57 U/L (45-117); Anion Gap 6 (5-15); BUN 4 mg/dL (7-18); BUN/Creat Ratio 9.7 RATIO (10-20); CPK Total, Creatine Kinase 615 U/L (39-308); Calcium,Total 5.9 mg/dL (8.5-10.1); Chloride 113 mmol/L (98-107); Creatinine, Serum 0.41 mg/dL (0.70-1.30); EST Glomerular Filtration Rate 224 mL/min (>60); Est Glom Filt Rate - Afr Amer 271 mL/min (>60); Estimated Creatinine Clearance 205.04 ml/min; Globulin 2.8 g/dL (2.2-4.2); Glucose 94 mg/dL (74-106); Magnesium 1.7 mg/dL (1.6-2.6); Phosphorus 1.6 mg/dL (2.5-4.9); Potassium 3.5 mmol/L (3.5-5.1); Protein, Total 4.4 g/dL (6.4-8.2); Sodium Level 142 mmol/L (136-145)
[2022-05-23] MEDS: Potassium Chloride 40 MEQ in 0.9% Normal Saline 1,000 ML 100 ML IV (04:02)
[2022-05-23] MEDS: LORazepam 2 MG/ML Syringe IV ×3 (04:16→19:41)
[2022-05-23] MEDS: Vital High Protein 1,000 ML 50 ML GT (04:16)
--- NOTE | 2022-05-23 06:54 | PCM.PN.INT ---
Assessment & Plan Assessment/Plan (1) Alcohol withdrawal: (2) EMMANUEL (acute kidney injury): (3) Alcohol withdrawal delirium: (4) Alcohol withdrawal seizure: QUALIFIERS: Complication of substance-induced condition: with delirium Qualified Code(s): F10.931 - Alcohol use, unspecified with withdrawal delirium; R56.9 - Unspecified convulsions PLAN: Plan RECOMMENDATIONS: 1. Continue propofol with PRN ativan. Add phenobarb taper 2. Continue tube feeds and PPI. 3. Spontaneous breathing and awakening trials per protocol 4. Discontinue antibiotics given negative cultures 5. Aggressive electrolyte repletion 6. Likely transition to GI volume from IV hydration pending EGD IMPRESSIONS: 1. Acute DTs following alcohol withdrawal Exact etiology of alcohol cessation is unclear. Patient does have a history of significant high levels of alcohol indicating probable alcohol abuse. Clinical suspicion for withdrawal seizures. EEG does not show status epilepticus. We will continue with sedation. Some concern that the protracted use of propofol may lead to propofol infusion syndrome. Will add phenobarbital taper and attempt to minimize risk. Clinical suspicion is that fever is secondary to withdrawal. Anticipate patient will require mechanical ventilation for at least 3 to 4 days secondary to severe withdrawal. We will need to address willingness for alcohol cessation after the acute situation. 2. Acute hypercarbic respiratory failure secondary to possible aspiration pneumonia versus DTs Patient with a respiratory acidosis following intubation. Patient does not have a significant infiltrate on chest x-ray. Supportive devices have been adjusted to appropriate positions. Patient on minimal vent settings at this time, but likely will not be able to be extubated in the short-term secondary to problem #1. Anticipate 48 to 72 hours of mechanical ventilation. Patient may require transition to Precedex to facilitate a spontaneous breathing trial 3. Acute blood loss anemia secondary to upper GI bleed secondary to grade D esophagitis Patient has received fluid resuscitation, but hemoglobin is down significantly. GI has been consulted and EGD with intervention was completed yesterday. Patient continued on PPI twice daily. Patient appears to be tolerating tube feeds well. 4. Rhabdomyolysis/chronic thrombocytopenia/acute kidney injury/hyperbilirubinemia/hyponatremia Clinical suspicion for alcohol leading to the current issues. This does complicate patient's care, management, recovery and prognosis. Patient appears to be responding well to current therapy. Do not believe patient has acute alcohol toxicity with elevated enzymes. Renal function is normalized. We will discontinue IV fluids given tube feeds 5. Probable refeeding syndrome Anticipate patient will require significant electrolyte repletion moving forward. Continue electrolyte repletion as necessary. Requirements have been improving. TIME: 35 minutes critical care time spent addressing patient's acute DTs, respiratory failure, possible GI bleed, review of all data and collaboration with care team Subjective Subjective Patient continues to have periodic episodes of agitation with attempts at sitting up in bed. Patient did receive 3 doses of Ativan overnight, despite propofol at 50. Patient is tolerating tube feeds. Patient is not as diaphoretic and minimal endotracheal secretions have been reported. Objective Data Objective Data Vital Signs: Vital Signs Temp Pulse Resp BP Pulse Ox O2 Del Method FiO2 37.7 C H 98 14 113/72 95 Mechanical Ventilator 25 05/23/22 06:00 05/23/22 06:00 05/23/22 06:00 05/23/22 06:00 05/23/22 06:00 05/23/22 06:00 05/23/22 06:00 Oxygen Delivery Method Mechanical Ventilator Weight: 114 kg Body Mass Index (BMI) 31.5 Intake & Output: Intake and Output for Last 24 Hours 05/21/22 05/22/22 05/23/22 23:59 23:59 23:59 Intake Total 5321.8233 / 5350.7233 5754.54 / 5764.54 1729.17 / 1729.17 Output Total 2125 / 2125 1450 / 1575 550 / 550 Balance 3196.8233 / 3225.7233 4304.54 / 4189.54 1179.17 / 1179.17 Lab / Micro Data Attestation: I reviewed the patient's lab results. Lab results narrative: Corrected calcium (albumin 1.6) is 7.8. Result Diagrams: 05/23/22 02:55 05/23/22 02:55 Labs: Laboratory Results - last 24 hr 05/22/22 14:10: Sodium 143, Potassium 5.4 H, Chloride 116 H, Carbon Dioxide 25.0, Anion Gap 2 L, BUN 4 L, Creatinine 0.55 L, Estim Creat Clear Calc 152.85, Est GFR (MDRD) Af Amer 192, Est GFR (MDRD) Non-Af 159, BUN/Creatinine Ratio 7.2 L, Glucose 107 H, Calcium 6.5 L* 05/23/22 02:55: Sodium 142, Potassium 3.5, Chloride 113 H, Carbon Dioxide 23.0, Anion Gap 6, BUN 4 L, Creatinine 0.41 L, Estim Creat Clear Calc 205.04, Est GFR (MDRD) Af Amer 271, Est GFR (MDRD) Non-Af 224, BUN/Creatinine Ratio 9.7 L, Glucose 94, Calcium 5.9 L*, Phosphorus 1.6 L, Magnesium 1.7, Total Bilirubin 1.40 H, AST 46 H, ALT 28, Alkaline Phosphatase 57, Total Creatine Kinase 615 H, Total Protein 4.4 L, Albumin 1.6 L, Globulin 2.8, Albumin/Globulin Ratio 0.6 L 05/23/22 02:55: WBC 3.0 L, RBC 2.61 L, Hgb 9.9 L, Hct 30.9 L, MCV 118.4 H D, MCH 37.9 H, MCHC 32.0 D, RDW Std Deviation 57.9 H, RDW Coeff of Valerio 13.4, Plt Count 85 L, MPV 10.0, Immature Gran % (Auto) 0.700, Neut % (Auto) 55.2, Lymph % (Auto) 20.7, [place] % (Auto) 18.0 H, Eos % (Auto) 4.7, Baso % (Auto) 0.7, Absolute Neuts (auto) 1.6 L, Absolute Lymphs (auto) 0.61 L, Nucleated RBC % 0 Micro: Microbiology 05/19/22 19:00 Sputum, Tracheal Aspirate Gram Stain - Final 05/19/22 19:00 Sputum, Tracheal Aspirate Respiratory Culture - Final 05/19/22 09:10 Gastric Fluid/Contents Gastric Occult Blood - Final Occult Blood Positive Rhythm Strip Rhythm Strip: Sinus Rhythm Rate: 92 Ectopy: PVC(s) Physical Exam Const Constitutional Narrative: RASS -1 with good vent synchrony. Appears older than stated age. Not diaphoretic. General Appearance: lethargic and patient mechanically ventilated; Negative for ill appearing HEENT normocephalic, head/scalp atraumatic and moist oral mucous membranes Mouth: endotracheal tube in place and OG tube in place Eyes PERRL and EOMs intact bilaterally Eyes Narrative: Scleral injection noted Neck full ROM and no lymphadenopathy Chest inspection of chest normal Resp normal respiratory effort Effort and Inspection: Negative for actively coughing Auscultation: Negative for rales, rhonchi or wheezes Cardio regular rate, regular rhythm, S1 normal heart sound, S2 normal heart sound, no murmurs, no rub and no gallops GI normal to inspection, nondistended, normoactive bowel sounds GI Narrative: Obese Narrative: Large inguinal hernia Extremity General Extremity: edema; Negative for clubbing Skin no rashes or lesions noted Neuro Sensorium / Orientation: sedated on vent Psych Mood & Affect: labile affect and flat affect Charges/Coding Procedures Hospitalists Procedures: 93564 Critial Care 1st Hr
[2022-05-23] MEDS: Phenobarbital 32.4 MG Tablet PO ×5 (07:00→21:30)
[2022-05-23] MEDS: Chlorhexidine 15 ML PO ×2 (07:53→21:29)
[2022-05-23] MEDS: QUEtiapine 25 MG Tablet 50 MG NG ×2 (07:54→21:29)
[2022-05-23] MEDS: Acetaminophen 650 MG/20 ML UDC GT ×2 (08:21→18:40)
--- NOTE | 2022-05-23 12:08 | PN.HOSP_ITS ---
Subjective Subjective Still with marked agitation. Required 3 doses of as needed Ativan through the night. Started on phenobarbital taper currently calm. Intermittent low-grade temps but no signs of acute infection. Objective Data Objective Data Vital Signs: Vital Signs Temp Pulse Resp BP Pulse Ox O2 Del Method FiO2 99.3 F H 86 14 88/55 L 94 Mechanical Ventilator 25 05/23/22 12:00 05/23/22 12:00 05/23/22 12:00 05/23/22 12:00 05/23/22 12:00 05/23/22 12:00 05/23/22 12:00 Oxygen Delivery Method Mechanical Ventilator Weight: 114 kg Body Mass Index (BMI) 31.5 Intake & Output: Intake and Output for Last 24 Hours 05/21/22 05/22/22 05/23/22 23:59 23:59 23:59 Intake Total 5321.8233 / 5350.7233 5754.54 / 5764.54 2292.42 / 2292.42 Output Total 2125 / 2125 1450 / 1575 550 / 550 Balance 3196.8233 / 3225.7233 4304.54 / 4189.54 1742.42 / 1742.42 Lab / Micro Data Result Diagrams: 05/23/22 02:55 05/23/22 02:55 Labs: Laboratory Results - last 24 hr 05/22/22 14:10: Sodium 143, Potassium 5.4 H, Chloride 116 H, Carbon Dioxide 25.0, Anion Gap 2 L, BUN 4 L, Creatinine 0.55 L, Estim Creat Clear Calc 152.85, Est GFR (MDRD) Af Amer 192, Est GFR (MDRD) Non-Af 159, BUN/Creatinine Ratio 7.2 L, Glucose 107 H, Calcium 6.5 L* 05/23/22 02:55: Sodium 142, Potassium 3.5, Chloride 113 H, Carbon Dioxide 23.0, Anion Gap 6, BUN 4 L, Creatinine 0.41 L, Estim Creat Clear Calc 205.04, Est GFR (MDRD) Af Amer 271, Est GFR (MDRD) Non-Af 224, BUN/Creatinine Ratio 9.7 L, Glucose 94, Calcium 5.9 L*, Phosphorus 1.6 L, Magnesium 1.7, Total Bilirubin 1.40 H, AST 46 H, ALT 28, Alkaline Phosphatase 57, Total Creatine Kinase 615 H, Total Protein 4.4 L, Albumin 1.6 L, Globulin 2.8, Albumin/Globulin Ratio 0.6 L 05/23/22 02:55: WBC 3.0 L, RBC 2.61 L, Hgb 9.9 L, Hct 30.9 L, MCV 118.4 H D, MCH 37.9 H, MCHC 32.0 D, RDW Std Deviation 57.9 H, RDW Coeff of Valerio 13.4, Plt Count 85 L, MPV 10.0, Immature Gran % (Auto) 0.700, Neut % (Auto) 55.2, Lymph % (Auto) 20.7, [place] % (Auto) 18.0 H, Eos % (Auto) 4.7, Baso % (Auto) 0.7, Absolute Neuts (auto) 1.6 L, Absolute Lymphs (auto) 0.61 L, Nucleated RBC % 0 Micro: Microbiology 05/19/22 19:00 Sputum, Tracheal Aspirate Gram Stain - Final 05/19/22 19:00 Sputum, Tracheal Aspirate Respiratory Culture - Final 05/19/22 09:10 Gastric Fluid/Contents Gastric Occult Blood - Final Occult Blood Positive Rhythm Strip Rhythm Strip: Sinus Rhythm Rate: 92 Ectopy: PVC(s) Physical Exam Const Constitutional Narrative: Upper middle-aged white male lying in bed, patient intubated and sedated on the ventilator, appears older than stated age HEENT normocephalic, head/scalp atraumatic and moist oral mucous membranes HEENT Narrative: ET tube and OG in place, no significant secretions noted Neck supple Resp no retractions, no use of accessory muscles and clear to auscultation bilaterally Resp Narrative: Diffusely diminished but clear, patient mechanically ventilated Auscultation: Negative for crackles, rhonchi or wheezes Cardio regular rate, regular rhythm, S1 normal heart sound, S2 normal heart sound, no murmurs, no rub, no gallops and no clicks GI normal to inspection, nondistended, normoactive bowel sounds, soft to palpation, non-tender and non-distended Extremity Extremity Narrative: Edema noted in all 4 extremities likely due to dependence and volume status, no clubbing or cyanosis Neuro Neuro Narrative: Moves all extremities spontaneously, responds to noxious stimuli but intubated and sedated, becomes very agitated on sedation vacations Psych Psych Narrative: Unable to cooperate secondary to intubation and sedation Assessment & Plan Assessment/Plan (1) Alcoholic hepatitis: (2) Alcohol withdrawal seizure: QUALIFIERS: Complication of substance-induced condition: with delirium Qualified Code(s): F10.931 - Alcohol use, unspecified with withdrawal delirium; R56.9 - Unspecified convulsions (3) Alcohol withdrawal delirium: (4) Acute hypokalemia: (5) Aspiration pneumonia: QUALIFIERS: Aspiration pneumonia type: due to gastric secretions Laterality: bilateral Lung location: lower lobe of lung Qualified Code(s): J69.0 - Pneumonitis due to inhalation of food and vomit (6) Acute hypercapnic respiratory failure: (7) GI bleed: (8) Rhabdomyolysis: PLAN: Plan Acute hypercapnic respiratory failure -Suspect multifactorial with suspected aspiration and DTs -Sputum culture shows only normal fartun -Antibiotics discontinued with negative cultures -Patient will remain intubated until mental status improves--> anticipate that he will need ET tube at least until Wednesday -Continue sedation as ordered -Consider some diuresis if pressures remain stable through the next 24 hours as the patient is over 12.5 L positive for the hospitalization Per I's and O's Acute alcohol withdrawal with DTs -Continue propofol and fentanyl--> patient is requiring substantial doses due to agitation -Seroquel low-dose 50 mg enterally. twice daily added to help with agitation -Controlled phenobarbital taper added -Has had 3 days of IV thiamine 200 mg will discontinue -Continue folate -180 consultation after extubation if patient willing to go through the process for ongoing alcohol abstinence Grade D erosive esophagitis/acute gastritis with hemorrhage -Hemoglobin down a bit more today but patient is markedly positive for his hospital stay -No signs of bleeding -EGD done on 05/21/2022 shows grade D erosive esophagitis that was treated with heater probe, acute gastritis with hemorrhage that was treated with heater probe and normal small bowel exam into the jejunum -Change IV drip to 80 mg IV twice daily per GI recommendations and anticipate transition to 40 mg twice daily once able to take enterally, +/-Carafate -Tube feed initiated -GI following Mild anemia -Hemoglobin 9.9 this a.m. -Slight drop however patient is positive about 12.5 and half liters for the hospitalization -Macrocytic in nature -Continue to monitor with repeat CBC in a.m. Alcoholic hepatitis -Madrey score is 23 -No need for steroid therapy at this time -Continue to monitor -GI following-appreciate input Chronic thrombocytopenia -Likely related to toxic effect of alcohol to marrow/splenic sequestration with alcoholism and suspected liver disease -Counts are currently trending up and stable at 85,000 -Continue to monitor EMMANUEL -Resolved -Suspect related to acute dehydration upon presentation Electrolyte disturbance -Potassium and magnesium were normalized -Phosphorus is slightly low -We will give K-Phos bolus and repeat in a.m. -I suspect there is somewhat of a refeeding component associated with his electrolyte issues DVT prophylaxis -Start subcu enoxaparin -Continue DVT prophylaxis with SCDs CODE STATUS -Full code Charges/Coding Visit Charges Inpatient E&M: 13218 Subs Hosp L2
[2022-05-23] MEDS: Propofol 10MG/Ml 1,000 MG/100 ML Bottle 25.2 MG CONT INF ×2 (13:19→22:00)
[2022-05-23] MEDS: Propofol 10MG/Ml 1,000 MG/100 ML Bottle 28.3 MG CONT INF ×2 (16:28→19:27)
--- NOTE | 2022-05-23 19:46 | NURSING ---
Pt's HR up to 150, RR up to 35, pt demonstrating agitation by raising self in bed and pulling at restraints with vent dyssynchrony; PRN Ativan 2mg given IVP as per orders.
[2022-05-24] VITALS (33 sets, daily range): BP systolic 90–152; BP diastolic 63–106; PULSE 83–126; RESP 9–19; TEMP 37.2–38.6; O2SAT 92–100
[2022-05-24] MEDS: Vital High Protein 1,000 ML 50 ML GT (00:30)
[2022-05-24] MEDS: Propofol 10MG/Ml 1,000 MG/100 ML Bottle 22 MG CONT INF (01:34)
[2022-05-24] MEDS: Senna/Docusate Sodium 1 Tablet 2 TABLET PO (02:01)
[2022-05-24] MEDS: Phenobarbital 32.4 MG Tablet PO ×6 (02:01→21:36)
[2022-05-24 03:40] LABS: Absolute Lymphocyte Count 0.62 X10^3/uL (0.83-4.51); Absolute Neutrophil Count 1.5 X10^3/uL (2.0-7.7); Basophil# 0.03 X10^3/uL; Eosinophil# 0.16 X10^3/uL; Eosinophils% 5.3 % (0-5); Hematocrit 32.2 % (40-54); Hemoglobin 10.7 g/dL (13.0-16.5); Lymphocyte # 0.62 X10^3/ul (0.83-4.51); Lymphocyte % 20.4 % (19-41); Mean Corp Hgb Conc 33.2 g/dL (32-36); Mean Corpuscular Hgb 37.3 pg (27.0-32.0); Mean Corpuscular Volume 112.2 fL (80-94); Mean Platelet Vol. 9.4 fl (6.2-12.0); Monocyte# 0.74 X10^3/uL; Monocyte% 24.3 % (0-10); NRBC Flagged by Analyzer 0 % (0-5); Neutrophil # 1.47 X10^3/uL (2.7-7.7); Neutrophil % 48.3 % (47-70); Platelet Count 137 K/mm3 (150-450); RBC Distribution Width CV 13.3 % (11.6-14.6); RBC Distribution Width SD 55.8 fl (35.1-43.9); Red Blood Count 2.87 M/mm3 (4.6-6.2)
[2022-05-24 04:11] LABS: ALB/GLOB Ratio 0.5 RATIO (0.9-2.4); AST(SGOT) 22 U/L (15-37); Alanine Aminotransfer ALT/SGPT 29 U/L (16-61); Albumin, Serum 1.7 g/dL (3.2-5.0); Alkaline Phosphatase 71 U/L (45-117); Anion Gap 4 (5-15); BUN 5 mg/dL (7-18); BUN/Creat Ratio 8.4 RATIO (10-20); Calcium,Total 6.8 mg/dL (8.5-10.1); Chloride 109 mmol/L (98-107); Creatinine, Serum 0.59 mg/dL (0.70-1.30); EST Glomerular Filtration Rate 147 mL/min (>60); Est Glom Filt Rate - Afr Amer 178 mL/min (>60); Estimated Creatinine Clearance 142.49 ml/min; Globulin 3.3 g/dL (2.2-4.2); Glucose 97 mg/dL (74-106); Magnesium 1.9 mg/dL (1.6-2.6); Potassium 3.9 mmol/L (3.5-5.1); Sodium Level 139 mmol/L (136-145)
[2022-05-24] MEDS: LORazepam 2 MG/ML Syringe IV ×2 (06:25→21:05)
[2022-05-24] MEDS: Propofol 10MG/Ml 1,000 MG/100 ML Bottle 18.9 MG CONT INF ×3 (06:26→10:59)
[2022-05-24] MEDS: TITRATION PARAMETER CHANGE 1 EACH IV (06:29)
--- NOTE | 2022-05-24 06:50 | PN.CC_ITS ---
Assessment & Plan Assessment/Plan (1) Alcohol withdrawal: (2) EMMANUEL (acute kidney injury): (3) Alcohol withdrawal delirium: (4) Alcohol withdrawal seizure: QUALIFIERS: Complication of substance-induced condition: with delirium Qualified Code(s): F10.931 - Alcohol use, unspecified with withdrawal delirium; R56.9 - Unspecified convulsions PLAN: Plan RECOMMENDATIONS: 1. Continue propofol and phenobarb taper with PRN ativan. Possible transition to Precedex tomorrow 2. Continue tube feeds and twice daily PPI. 3. Spontaneous breathing and awakening trials per protocol 4. Consider surgical evaluation if no bowel movement in the next 24 hours 5. Aggressive electrolyte repletion 6. Continue Seroquel IMPRESSIONS: 1. Acute DTs following alcohol withdrawal Exact etiology of alcohol cessation is unclear. Patient does have a history of significant high levels of alcohol indicating probable alcohol abuse. Clinical suspicion for withdrawal seizures. EEG does not show status epilepticus. We will continue with sedation. Some concern that the protracted use of propofol may lead to propofol infusion syndrome. Patient has responded well to phenobarbital taper, minimizing risk. Clinical suspicion is that fever is secondary to withdrawal. Anticipate patient will require mechanical ventilation for at least 2-3 days secondary to severe withdrawal. We will need to address willingness for alcohol cessation after the acute situation. 2. Acute hypercarbic respiratory failure secondary to possible aspiration pneumonia versus DTs Patient with a respiratory acidosis following intubation. Patient does not have a significant infiltrate on chest x-ray. Supportive devices have been adjusted to appropriate positions. Patient on minimal vent settings at this time, but likely will not be able to be extubated in the short-term secondary to problem #1. Anticipate 24 to 48 hours of mechanical ventilation. Patient may require transition to Precedex to facilitate a spontaneous breathing trial. Patient is significantly positive, but remains on minimal oxygen settings. 3. Acute blood loss anemia secondary to upper GI bleed secondary to grade D esophagitis Patient has received fluid resuscitation, but hemoglobin is down significantly. GI has been consulted and EGD with intervention was completed yesterday. Patient continued on PPI twice daily. Patient appears to be tolerating tube feeds well. Patient does have a significant inguinal and periumbilical hernia. Could consider surgical evaluation if no bowel movement. Patient does not have hemodynamics or labs to suggest strangulation. 4. Rhabdomyolysis/chronic thrombocytopenia/acute kidney injury/hyperbilirubinemia/hyponatremia Clinical suspicion for alcohol leading to the current issues. This does complicate patient's care, management, recovery and prognosis. Patient appears to be responding well to current therapy. Do not believe patient has acute alc ohol toxicity with elevated enzymes. Renal function is normalized. We will discontinue IV fluids given tube feeds 5. Probable refeeding syndrome Anticipate patient will require significant electrolyte repletion moving forward. Continue electrolyte repletion as necessary. Requirements have been improving. TIME: 32 minutes critical care time spent addressing patient's acute DTs, respiratory failure, possible GI bleed, review of all data and collaboration with care team Subjective Subjective Patient did okay overnight. Propofol requirements have significantly improved following initiation of phenobarb. Patient is still requiring as needed doses of Ativan, so did not have a spontaneous breathing trial this morning. Patient has been tolerating tube feeds, but has not had a bowel movement at this time. Objective Data Objective Data Vital Signs: Vital Signs Temp Pulse Resp BP Pulse Ox O2 Del Method FiO2 37.2 C 87 14 100/69 98 Mechanical Ventilator 25 05/24/22 04:00 05/24/22 04:29 05/24/22 04:29 05/24/22 04:00 05/24/22 04:29 05/24/22 04:00 05/24/22 04:29 Oxygen Delivery Method Mechanical Ventilator Weight: 115.6 kg Body Mass Index (BMI) 31.5 Intake & Output: Intake and Output for Last 24 Hours 05/22/22 05/23/22 05/24/22 23:59 23:59 23:59 Intake Total 5754.54 / 5764.54 4563.3833 / 4748.5833 1524.83 / 1524.83 Output Total 1450 / 1575 2850 / 2850 650 / 650 Balance 4304.54 / 4189.54 1713.3833 / 1898.5833 874.83 / 874.83 Lab / Micro Data Attestation: I reviewed the patient's lab results. Result Diagrams: 05/24/22 03:30 05/24/22 03:30 Labs: Laboratory Results - last 24 hr 05/24/22 03:30: WBC 3.0 L, RBC 2.87 L, Hgb 10.7 L, Hct 32.2 L, MCV 112.2 H D, MCH 37.3 H, MCHC 33.2, RDW Std Deviation 55.8 H, RDW Coeff of Valerio 13.3, Plt Count 137 L, MPV 9.4, Immature Gran % (Auto) 0.700, Neut % (Auto) 48.3, Lymph % (Auto) 20.4, [place] % (Auto) 24.3 H, Eos % (Auto) 5.3 H, Baso % (Auto) 1.0, Absolute Neuts (auto) 1.5 L, Absolute Lymphs (auto) 0.62 L, Nucleated RBC % 0 05/24/22 03:30: Sodium 139, Potassium 3.9, Chloride 109 H, Carbon Dioxide 26.0, Anion Gap 4 L, BUN 5 L, Creatinine 0.59 L, Estim Creat Clear Calc 142.49, Est GFR (MDRD) Af Amer 178, Est GFR (MDRD) Non-Af 147, BUN/Creatinine Ratio 8.4 L, Glucose 97, Calcium 6.8 L, Phosphorus 3.0, Magnesium 1.9, Total Bilirubin 1.20 H , AST 22, ALT 29, Alkaline Phosphatase 71, Total Protein 5.0 L, Albumin 1.7 L, Globulin 3.3, Albumin/Globulin Ratio 0.5 L Micro: Microbiology 05/19/22 19:00 Sputum, Tracheal Aspirate Gram Stain - Final 05/19/22 19:00 Sputum, Tracheal Aspirate Respiratory Culture - Final 05/19/22 09:10 Gastric Fluid/Contents Gastric Occult Blood - Final Occult Blood Positive Rhythm Strip Rhythm Strip: Sinus Rhythm Rate: 87 Physical Exam Const Constitutional Narrative: RASS -1 with good vent synchrony. Appears older than stated age. Not d iaphoretic. General Appearance: lethargic and patient mechanically ventilated; Negative for ill appearing HEENT normocephalic, head/scalp atraumatic and moist oral mucous membranes Eyes PERRL and EOMs intact bilaterally Eyes Narrative: Scleral injection noted Neck full ROM and no lymphadenopathy Chest inspection of chest normal Resp normal respiratory effort Effort and Inspection: Negative for actively coughing Auscultation: Negative for rales, rhonchi or wheezes Cardio regular rate, regular rhythm, S1 normal heart sound, S2 normal heart sound, no murmurs, no rub and no gallops GI GI Narrative: Obese. Large inguinal and umbilical hernia. Reducible. Narrative: Large inguinal hernia Extremity General Extremity: edema; Negative for clubbing Skin no rashes or lesions noted Neuro Sensorium / Orientation: sedated on vent Psych Mood & Affect: labile affect and flat affect Charges/Coding Procedures Hospitalists Procedures: 15559 Critial Care 1st Hr
[2022-05-24] MEDS: Chlorhexidine 15 ML PO ×2 (08:05→21:30)
[2022-05-24] MEDS: QUEtiapine 25 MG Tablet 50 MG NG ×2 (08:06→21:30)
[2022-05-24] MEDS: Acetaminophen 650 MG/20 ML UDC GT ×2 (08:13→16:13)
--- NOTE | 2022-05-24 10:10 | PCM.RX.CS ---
Consult Pharmacy has been consulted to manage selected antiobiotic: Vancomycin Type of Consult: New start Labs: Sodium 139 mmol/L (136-145) 05/24/22 03:30 Potassium 3.9 mmol/L (3.5-5.1) 05/24/22 03:30 Chloride 109 mmol/L (98-107) H 05/24/22 03:30 Carbon Dioxide 26.0 mmol/L (21.0-32.0) 05/24/22 03:30 Anion Gap 4 (5-15) L 05/24/22 03:30 BUN 5 mg/dL (7-18) L 05/24/22 03:30 Creatinine 0.59 mg/dL (0.70-1.30) L 05/24/22 03:30 Est GFR (MDRD) Af Amer 178 mL/min (>60) 05/24/22 03:30 Est GFR (MDRD) Non-Af 147 mL/min (>60) 05/24/22 03:30 BUN/Creatinine Ratio 8.4 RATIO (10-20) L 05/24/22 03:30 Glucose 97 mg/dL (74-106) 05/24/22 03:30 Microbiology: Microbiology 05/19/22 19:00 Sputum, Tracheal Aspirate Gram Stain - Final 05/19/22 19:00 Sputum, Tracheal Aspirate Respiratory Culture - Final 05/19/22 09:10 Gastric Fluid/Contents Gastric Occult Blood - Final Occult Blood Positive Pharmacy Plan for Drug Dosing: NEW START IV VANCOMYCIN Consulting Physician: IFEOMA Indication: UNKNOWN, BLOOD/URINE/SPUTUM CULTURES PENDING, PT WITH FEVERS Goal Trough: 15-20 MG/DL SrCr: 0.59 MG/DL (05/24) CrCl: 142 ML/MIN Comments: LOADING DOSE OF 2000MG GIVEN 05/24 @ 0946 Vancomycin Dose: WILL START 1500MG Q8 AT 1800 AND GET A TROUGH PRIOR TO 4TH DOSE TOTAL DOSE PER POLICY. Pending Level: 05/25/22 @ 929 Pharmacy Service will continue to monitor and adjust dosing as required.
--- NOTE | 2022-05-24 11:30 | PN.HOSP_ITS ---
Subjective Subjective Marked agitation overnight again and had to be given Ativan as needed. Increasing fevers with increasing secretions this morning. T-max was 101. Objective Data Objective Data Vital Signs: Vital Signs Temp Pulse Resp BP Pulse Ox O2 Del Method FiO2 100.5 F H 87 15 120/71 93 Mechanical Ventilator 25 05/24/22 10:00 05/24/22 11:27 05/24/22 11:27 05/24/22 10:00 05/24/22 11:27 05/24/22 10:00 05/24/22 11:27 Oxygen Delivery Method Mechanical Ventilator Weight: 115.6 kg Body Mass Index (BMI) 31.5 Intake & Output: Intake and Output for Last 24 Hours 05/22/22 05/23/22 05/24/22 23:59 23:59 23:59 Intake Total 5754.54 / 5764.54 4563.3833 / 4748.5833 1880.14 / 1880.14 Output Total 1450 / 1575 2850 / 2850 1850 / 1850 Balance 4304.54 / 4189.54 1713.3833 / 1898.5833 30.14 / 30.14 Lab / Micro Data Result Diagrams: 05/24/22 03:30 05/24/22 03:30 Labs: Laboratory Results - last 24 hr 05/24/22 03:30: WBC 3.0 L, RBC 2.87 L, Hgb 10.7 L, Hct 32.2 L, MCV 112.2 H D, MCH 37.3 H, MCHC 33.2, RDW Std Deviation 55.8 H, RDW Coeff of Valerio 13.3, Plt Count 137 L, MPV 9.4, Immature Gran % (Auto) 0.700, Neut % (Auto) 48.3, Lymph % (Auto) 20.4, [place] % (Auto) 24.3 H, Eos % (Auto) 5.3 H, Baso % (Auto) 1.0, Absolute Neuts (auto) 1.5 L, Absolute Lymphs (auto) 0.62 L, Nucleated RBC % 0 05/24/22 03:30: Sodium 139, Potassium 3.9, Chloride 109 H, Carbon Dioxide 26.0, Anion Gap 4 L, BUN 5 L, Creatinine 0.59 L, Estim Creat Clear Calc 142.49, Est GFR (MDRD) Af Amer 178, Est GFR (MDRD) Non-Af 147, BUN/Creatinine Ratio 8.4 L, Glucose 97, Calcium 6.8 L, Phosphorus 3.0, Magnesium 1.9, Total Bilirubin 1.20 H , AST 22, ALT 29, Alkaline Phosphatase 71, Total Protein 5.0 L, Albumin 1.7 L, Globulin 3.3, Albumin/Globulin Ratio 0.5 L Micro: Microbiology 05/19/22 19:00 Sputum, Tracheal Aspirate Gram Stain - Final 05/19/22 19:00 Sputum, Tracheal Aspirate Respiratory Culture - Final 05/19/22 09:10 Gastric Fluid/Contents Gastric Occult Blood - Final Occult Blood Positive Rhythm Strip Rhythm Strip: Sinus Rhythm Rate: 87 Ectopy: PVC(s) Physical Exam Const Constitutional Narrative: Upper middle-aged white male lying in bed, patient intubated and sedated on the ventilator, appears older than stated age HEENT normocephalic, head/scalp atraumatic and moist oral mucous membranes HEENT Narrative: ET tube and OG in place, copious secretions surrounding tubes Resp no retractions and no use of accessory muscles Resp Narrative: Diffusely diminished, scattered rhonchi Auscultation: rhonchi; Negative for crackles or wheezes Cardio regular rate, regular rhythm, S1 normal heart sound, S2 normal heart sound, no murmurs, no rub, no gallops and no clicks GI normal to inspection, nondistended, normoactive bowel sounds, soft to palpation, non-tender and non-distended Extremity no clubbing, cyanosis or edema Extremity Narrative: Edema noted in all 4 extremities likely due to dependence and volume status, no clubbing or cyanosis Neuro Neuro Narrative: Moves all extremities spontaneously, responds to noxious stimuli but intubated and sedated, becomes very agitated on sedation vacations Psych Psych Narrative: Unable to cooperate secondary to intubation and sedation Assessment & Plan Assessment/Plan (1) Alcoholic hepatitis: (2) Alcohol withdrawal seizure: QUALIFIERS: Complication of substance-induced condition: with delirium Qualified Code(s): F10.931 - Alcohol use, unspecified with withdrawal delirium; R56.9 - Unspecified convulsions (3) Alcohol withdrawal delirium: (4) Acute hypokalemia: (5) Aspiration pneumonia: QUALIFIERS: Aspiration pneumonia type: due to gastric secretions Laterality: bilateral Lung location: lower lobe of lung Qualified Code(s): J69.0 - Pneumonitis due to inhalation of food and vomit (6) Acute hypercapnic respiratory failure: (7) GI bleed: (8) Rhabdomyolysis: (9) Fever: PLAN: Plan Acute hypercapnic respiratory failure -Suspect multifactorial with suspected aspiration and DTs -Sputum culture shows only normal fartun -Antibiotics discontinued with negative cultures yesterday however patient more febrile today -Patient will remain intubated until mental status improves -Continue sedation as ordered -Start Lasix 40 mill grams IV push twice daily Acute alcohol withdrawal with DTs -Continue propofol and fentanyl--> patient is requiring substantial doses due to agitation -Seroquel low-dose 50 mg enterally twice daily -Continue phenobarbital taper -Has had 3 days of IV thiamine 200 mg discontinued -Continue folate -180 consultation after extubation if patient willing to go through the process for ongoing alcohol abstinence Fevers -Check blood cultures -Check urine culture next-check sputum culture -Start broad-spectrum antibiotics with vancomycin and Zosyn Grade D erosive esophagitis/acute gastritis with hemorrhage -Hemoglobin down a bit more today but patient is markedly positive for his hospital stay -No signs of bleeding -EGD done on 05/21/2022 shows grade D erosive esophagitis that was treated with heater probe, acute gastritis with hemorrhage that was treated with heater probe and normal small bowel exam into the jejunum -Change IV drip to 80 mg IV twice daily per GI recommendations and anticipate transition to 40 mg twice daily once able to take enterally, +/-Carafate -Tube feed initiated -GI following Mild anemia -Hemoglobin 10.7 this a.m. -Macrocytic in nature -Continue to monitor with repeat CBC in a.m. Alcoholic hepatitis -Madrey score is 23 -No need for steroid therapy at this time -Continue to monitor -GI following-appreciate input Chronic thrombocytopenia -Likely related to toxic effect of alcohol to marrow/splenic sequestration with alcoholism and suspected liver disease -Counts are currently trending up and stable at 137,000 -Continue to monitor Electrolyte disturbance -We have finally caught up with electrolyte replacement -We will monitor potassium and magnesium with Lasix use -I suspect there is somewhat of a refeeding component associated with his electrolyte issues DVT prophylaxis -Continue subcu enoxaparin -Continue DVT prophylaxis with SCDs CODE STATUS -Full code Charges/Coding Visit Charges Inpatient E&M: 64740 Subs Hosp L2
[2022-05-24] MEDS: Furosemide 40 MG/4 ML Vial IV ×2 (13:23→17:34)
[2022-05-24] MEDS: Propofol 10MG/Ml 1,000 MG/100 ML Bottle 20.8 MG CONT INF ×2 (14:29→17:40)
--- NOTE | 2022-05-24 19:15 | NURSING ---
Propofol drip infusing at 40mcg/kg/min when verifying rates on IV pumps.
--- NOTE | 2022-05-24 20:45 | RAD_ITS ---
STUDY: X-RAY - ABDOMEN/PELVIS REASON FOR EXAM: Male, 62 years old. INGUINAL HERNIA W/REDUCED BOWEL SOUNDS TECHNIQUE: Single AP view of the abdomen / pelvis. COMPARISON: None. FINDINGS: Nasogastric tube with the tip in the left upper quadrant likely in the cardia the stomach with the side-port in the distal esophagus. Kirk catheter in the pelvis. There is an unremarkable bowel gas pattern. The visualized liver, spleen and kidneys are grossly normal in size and morphology. Normal soft tissue structures. Normal visualized osseous structures. RAD/Abdomen Single View (Portable) IMPRESSION: 1. Nasogastric tube with the tip likely in the cardia the stomach. 2. No bowel obstruction. 3. Kirk catheter. Electronically Signed: Abiodun Jeong MD at 21:40 EST ,
[2022-05-24] MEDS: Propofol 10MG/Ml 1,000 MG/100 ML Bottle 27.7 MG CONT INF (21:41)
[2022-05-25] VITALS (35 sets, daily range): BP systolic 85–156; BP diastolic 56–99; PULSE 72–106; RESP 14–19; TEMP 37–37.8; O2SAT 94–99
[2022-05-25] MEDS: Propofol 10MG/Ml 1,000 MG/100 ML Bottle 27.7 MG CONT INF (00:43)
[2022-05-25] MEDS: LORazepam 2 MG/ML Syringe IV ×3 (00:43→19:45)
--- NOTE | 2022-05-25 03:35 | RAD_ITS ---
EXAM: XR CHEST, 1 VIEW CLINICAL INDICATION: central line TECHNIQUE: Frontal view of the chest. This report was created using [employer] report generation technology. COMPARISON: 05/20/2022 FINDINGS: LUNGS AND PLEURAL SPACES: Left basilar airspace disease and small pleural effusion. No pneumothorax. HEART: Unremarkable. Cardiac silhouette not enlarged. MEDIASTINUM: Central airways and mediastinal contour are unremarkable. BONES/JOINTS: Unremarkable. SOFT TISSUES: Unremarkable. TUBES, LINES AND DEVICES: Endotracheal tube with tip 5.5 cm above the erik. Enteric tube extending below the level of the GE junction into the stomach. RAD/Chest 1 View (Portable) IMPRESSION: 1. No pneumothorax identified on this portable exam. 2. Left basilar airspace disease and small pleural effusion. Findings may indicate atelectasis or infection. Electronically Signed: Jose Luis Heller MD at 4:02 EST ,
--- NOTE | 2022-05-25 03:52 | PCM.PN.BLA ---
Progress Note Attempted RIJ central line without success. CXray ordered.
--- NOTE | 2022-05-25 03:55 | NURSING ---
Dr. Galeana left bedside after R I-J attempt; pt marcelino well, no need to increase sedation for procedure. Site cleansed, drsg applied and portable CXR obtained.
[2022-05-25] MEDS: Propofol 10MG/Ml 1,000 MG/100 ML Bottle 20.8 MG CONT INF (04:20)
[2022-05-25] MEDS: 0.9% Saline Lock 10 ML Syringe IV ×3 (04:34→17:21)
[2022-05-25] MEDS: Phenobarbital 32.4 MG Tablet PO ×4 (04:35→21:12)
[2022-05-25 04:58] LABS: Absolute Lymphocyte Count 0.69 X10^3/uL (0.83-4.51); Absolute Neutrophil Count 2.1 X10^3/uL (2.0-7.7); Basophil# 0.04 X10^3/uL; Eosinophil# 0.09 X10^3/uL; Eosinophils% 2.3 % (0-5); Hematocrit 35.6 % (40-54); Hemoglobin 12.5 g/dL (13.0-16.5); Lymphocyte # 0.69 X10^3/ul (0.83-4.51); Lymphocyte % 17.3 % (19-41); Mean Corp Hgb Conc 35.1 g/dL (32-36); Mean Corpuscular Hgb 38.2 pg (27.0-32.0); Mean Corpuscular Volume 108.9 fL (80-94); Mean Platelet Vol. 9.8 fl (6.2-12.0); Monocyte# 0.99 X10^3/uL; Monocyte% 24.9 % (0-10); NRBC Flagged by Analyzer 0 % (0-5); Neutrophil # 2.14 X10^3/uL (2.7-7.7); Neutrophil % 53.7 % (47-70); Platelet Count 216 K/mm3 (150-450); RBC Distribution Width SD 52.2 fl (35.1-43.9); Red Blood Count 3.27 M/mm3 (4.6-6.2)
[2022-05-25 05:03] LABS: Anion Gap 7 (5-15); BUN 9 mg/dL (7-18); BUN/Creat Ratio 15.8 RATIO (10-20); Calcium,Total 7.7 mg/dL (8.5-10.1); Chloride 103 mmol/L (98-107); Creatinine, Serum 0.57 mg/dL (0.70-1.30); EST Glomerular Filtration Rate 154 mL/min (>60); Est Glom Filt Rate - Afr Amer 186 mL/min (>60); Estimated Creatinine Clearance 147.49 ml/min; Glucose 94 mg/dL (74-106); Potassium 3.6 mmol/L (3.5-5.1); Sodium Level 137 mmol/L (136-145)
--- NOTE | 2022-05-25 07:17 | EX.PCM.CON.S ---
Assessment & Plan Assessment/Plan (1) Inguinal hernia: QUALIFIERS: Laterality: unilateral Obstruction and gangrene presence: without obstruction or gangrene Recurrence: non-recurrent Qualified Code(s): K40.90 - Unilateral inguinal hernia, without obstruction or gangrene, not specified as recurrent PLAN: large inguinal hhernia - not reducible - loss of domain no acute surgical emergency/urgency will await extubation and then obtain patient's history and status with regard to his hernia hernia seems unchanged since 2019 by my review of the CT scan Hernia repair can be done as outpatient. PLAN: Plan see above HPI Consult Data Date of Consult: 05/25/22 HPI Narrative HPI Narrative: JORGE SOLER, is a 62 M who presents with large RIH He has been in the hospital since 05/19/2022 at which time, CT scan demonstrated large RIH with bowel incarcerated. Patient is on detox protocol and presently intubated. Consultation was requested by Dr. Sudheer Joy for concerns regarding obstruction. Patient is presently not responsive due to intubation/sedation. However, the nurse this morning noted flatus. Patient has not had a bowel movement since admission. Patient was noted to have same size right inguinal hernia by CT scan 02/10/2019. Symptoms cannot be obtained from patient due to intubation/sedation. [facility] Medical History Acute and chronic respiratory failure with hypoxia EMMANUEL (acute kidney injury) Alcohol dependence syndrome Alcohol withdrawal Alcohol withdrawal seizure Aspiration into airway Atherosclerosis of coronary artery of [place] heart without angina pectoris Bilateral inguinal hernia without obstruction or gangrene Essential hypertension Fracture of right humerus with nonunion GERD (gastroesophageal reflux disease) High anion gap metabolic acidosis History of CVA (cerebrovascular accident) History of DVT (deep vein thrombosis) History of PA (myocardial infarction) Incarcerated umbilical hernia Lactic acidemia Preop cardiovascular exam Radial nerve palsy Respiratory failure Medical History unable to obtain Home Medications aspirin 81 mg tablet,delayed release (Adult Low Dose Aspirin) 81 mg PO DAILY Check with primary doctor 07/04/19 [History Last Taken 03/29/20] lansoprazole 15 mg capsule,delayed release (Prevacid) 15 mg PO DAILY PRN Pain 1-10 Or Fever 07/04/19 [History Last Taken Unknown] Allergy/AdvReac Type Severity Reaction Status Date / Time No Known Allergies Allergy Verified 05/17/22 14:57 Family History Mother Colon cancer Heart disease Father Lymphoma Heart disease Family History unable to obtain Surgical History History of esophagogastroduodenoscopy (EGD) History of tonsillectomy and adenoidectomy Surgical History unable to obtain Social History Smoking Status: Current every day smoker tobacco type: cigarettes alcohol intake: former year quit: 2019 substance use type: does not use caffeine: Yes Type: carbonated beverages Number of servings: 2 and coffee Number of servings: 6 what type of physical activity do you participate in: walking frequency: daily ROS Review of Systems ROS Unobtainable: due to endotracheal tube Physical Exam Const Constitutional Narrative: patient is intubated/sedated HEENT head/scalp atraumatic Chest inspection of chest normal Resp Resp Narrative: patient on mechanical ventilation GI GI Narrative: abdomen is soft and benign Narrative: large right inguinal hernia - not reducible as large amount of bowel in scrotal sac the scrotal sac skin is not edematous and no acute changes suggestive of long standing hernia Medical Records Data Attestation: I reviewed the patient's medical records Lab / Micro Data Attestation: I reviewed the patient's lab results. Result Diagrams: 05/25/22 04:25 05/25/22 04:25 Labs: Laboratory Results - last 24 hr 05/25/22 04:25: WBC 4.0 L, RBC 3.27 L, Hgb 12.5 L, Hct 35.6 L, MCV 108.9 H, MCH 38.2 H, MCHC 35.1 D, RDW Std Deviation 52.2 H, RDW Coeff of Valerio 13.0, Plt Count 216, MPV 9.8, Immature Gran % (Auto) 0.800, Neut % (Auto) 53.7, Lymph % (Auto) 17.3 L, [place] % (Auto) 24.9 H, Eos % (Auto) 2.3, Baso % (Auto) 1.0, Absolute Neuts (auto) 2.1, Absolute Lymphs (auto) 0.69 L, Nucleated RBC % 0 05/25/22 04:25: Sodium 137, Potassium 3.6, Chloride 103, Carbon Dioxide 27.0, Anion Gap 7, BUN 9, Creatinine 0.57 L, Estim Creat Clear Calc 147.49, Est GFR (MDRD) Af Amer 186, Est GFR (MDRD) Non-Af 154, BUN/Creatinine Ratio 15.8, Glucose 94, Calcium 7.7 L Rhythm Strip Rhythm Strip: Sinus Rhythm Rate: 87 Ectopy: PVC(s) Radiology Impression KUB X-Ray 05/24/22 20:45 IMPRESSION: 1. Nasogastric tube with the tip likely in the cardia the stomach. 2. No bowel obstruction. 3. Kirk catheter. Electronically Signed: Abiodun Jeong MD at 21:40 EST , Chest X-Ray 05/25/22 03:35 IMPRESSION: 1. No pneumothorax identified on this portable exam. 2. Left basilar airspace disease and small pleural effusion. Findings may indicate atelectasis or infection. Electronically Signed: Jose Luis Heller MD at 4:02 EST ,
--- NOTE | 2022-05-25 07:47 | PN.CC_ITS ---
Assessment & Plan Assessment/Plan (1) Alcohol withdrawal: (2) EMMANUEL (acute kidney injury): (3) Alcohol withdrawal delirium: (4) Alcohol withdrawal seizure: QUALIFIERS: Complication of substance-induced condition: with delirium Qualified Code(s): F10.931 - Alcohol use, unspecified with withdrawal delirium; R56.9 - Unspecified convulsions PLAN: Plan RECOMMENDATIONS: 1. Continue propofol and phenobarb taper with PRN ativan. 2. Continue tube feeds and twice daily PPI. 3. Spontaneous breathing and awakening trials per protocol 4. Continue Seroquel. 5. Empiric antimicrobials while awaiting finalized infectious work-up. 6. Continue appropriate DVT prophylaxis. IMPRESSIONS: 1. Acute DTs following alcohol withdrawal The patient has a history of heavy alcohol use and is currently amidst acute alcohol withdrawal, which has been complicated by seizures. Plan to continue supportive measures including invasive mechanical ventilatory support, propofol, thiamine and folate, along with phenobarbital taper. Plan to continue attempts at daily spontaneous awakening trials to assess readiness for a trial of extubation. 2. Acute hypercarbic respiratory failure secondary to possible aspiration pneumonia versus DTs The patient remains on empiric antimicrobials to cover for potential aspiration. He is overall net +11 L for the hospitalization. Therefore, I agree with attempts at volume optimization with IV diuretics as tolerated by hemodynamics and renal function. Continue to wean FiO2 and PEEP to maintain oxygen saturations at or above 90%. 3. Acute blood loss anemia secondary to upper GI bleed secondary to grade D esophagitis Blood counts remained stable. Plan to continue PPI therapy per GI recommendations. 4. Rhabdomyolysis/chronic thrombocytopenia/acute kidney injury/hyperbilirubinemia Complicates care, management, recovery and prognosis. Continue supportive measures as noted above. TIME: 33 minutes of critical care time, independent of procedures, was spent addressing the patient's acute DTs, acute hypercarbic respiratory failure, blood loss anemia, review of all data and collaboration with the care team. Subjective Subjective The patient was seen and examined at the bedside this morning. Events from the last 24 hours have been reviewed. The patient is currently afebrile, hemodynamically stable and maintaining appropriate oxygen saturations on assist control mode mechanical ventilation with an FiO2 requirement of 25% and PEEP of 5. Today is vent day #6. The patient is sedated on propofol and fentanyl. He remains on empiric antimicrobials along with scheduled Seroquel and a phenobarbital taper. Objective Data Objective Data The patient's most recent lab work, culture data and imaging studies have all been personally reviewed. Infectious work-up has been unrevealing to date. Vital Signs: Vital Signs Temp Pulse Resp BP Pulse Ox O2 Del Method FiO2 99.2 F H 81 14 103/63 98 Mechanical Ventilator 25 05/25/22 06:00 05/25/22 07:10 05/25/22 07:10 05/25/22 06:00 05/25/22 07:10 05/25/22 06:00 05/25/22 07:10 Oxygen Delivery Method Mechanical Ventilator Weight: 246 lb 7.629 oz Body Mass Index (BMI) 31.5 Intake & Output: Intake and Output for Last 24 Hours 05/23/22 05/24/22 05/25/22 23:59 23:59 23:59 Intake Total 4563.3833 / 4748.5833 5512.72 / 5597.92 920.38 / 920.38 Output Total 2850 / 2850 7400 / 7400 600 / 600 Balance 1713.3833 / 1898.5833 -1887.28 / -1802.08 320.38 / 320.38 Lab / Micro Data Attestation: I reviewed the patient's lab results. Result Diagrams: 05/26/22 06:47 05/26/22 06:47 Labs: Laboratory Results - last 24 hr 05/25/22 04:25: WBC 4.0 L, RBC 3.27 L, Hgb 12.5 L, Hct 35.6 L, MCV 108.9 H, MCH 38.2 H, MCHC 35.1 D, RDW Std Deviation 52.2 H, RDW Coeff of Valerio 13.0, Plt Count 216, MPV 9.8, Immature Gran % (Auto) 0.800, Neut % (Auto) 53.7, Lymph % (Auto) 17.3 L, [place] % (Auto) 24.9 H, Eos % (Auto) 2.3, Baso % (Auto) 1.0, Absolute Neuts (auto) 2.1, Absolute Lymphs (auto) 0.69 L, Nucleated RBC % 0 05/25/22 04:25: Sodium 137, Potassium 3.6, Chloride 103, Carbon Dioxide 27.0, Anion Gap 7, BUN 9, Creatinine 0.57 L, Estim Creat Clear Calc 147.49, Est GFR (MDRD) Af Amer 186, Est GFR (MDRD) Non-Af 154, BUN/Creatinine Ratio 15.8, Glucose 94, Calcium 7.7 L Micro: Microbiology 05/19/22 19:00 Sputum, Tracheal Aspirate Gram Stain - Final 05/19/22 19:00 Sputum, Tracheal Aspirate Respiratory Culture - Final 05/19/22 09:10 Gastric Fluid/Contents Gastric Occult Blood - Final Occult Blood Positive Radiography Diagnostic Testing: Radiology Impression KUB X-Ray 05/24/22 20:45 IMPRESSION: 1. Nasogastric tube with the tip likely in the cardia the stomach. 2. No bowel obstruction. 3. Kirk catheter. Electronically Signed: Abiodun Jeong MD at 21:40 EST , Chest X-Ray 05/25/22 03:35 IMPRESSION: 1. No pneumothorax identified on this portable exam. 2. Left basilar airspace disease and small pleural effusion. Findings may indicate atelectasis or infection. Electronically Signed: Jose Luis Heller MD at 4:02 EST , Rhythm Strip Rhythm Strip: Sinus Rhythm Rate: 87 Ectopy: PVC(s) Physical Exam Const Constitutional Narrative: Intubated, sedated and mechanically ventilated. Nutritional Appearance: obese HEENT normocephalic, head/scalp atraumatic and moist oral mucous membranes Mouth: endotracheal tube in place and OG tube in place Eyes PERRL and EOMs intact bilaterally Neck full ROM and no lymphadenopathy Chest inspection of chest normal Resp Effort and Inspection: Negative for actively coughing Auscultation: Negative for rales, rhonchi or wheezes Cardio regular rate, regular rhythm, S1 normal heart sound, S2 normal heart sound, no murmurs, no rub and no gallops GI GI Narrative: Obese. Large inguinal and umbilical hernia. Reducible. Narrative: Large inguinal hernia Extremity General Extremity: edema; Negative for clubbing Skin no rashes or lesions noted Neuro Sensorium / Orientation: sedated on vent Charges/Coding Procedures Hospitalists Procedures: 96183 Critial Care 1st Hr
[2022-05-25] MEDS: Propofol 10MG/Ml 1,000 MG/100 ML Bottle 20.1 MG CONT INF (09:31)
[2022-05-25] MEDS: Furosemide 40 MG/4 ML Vial IV ×2 (09:31→17:21)
[2022-05-25] MEDS: Polyethylene Glycol 3350 17 GM PACKET GT ×2 (09:31→21:13)
[2022-05-25] MEDS: QUEtiapine 25 MG Tablet 50 MG NG ×2 (09:31→21:12)
[2022-05-25] MEDS: Enoxaparin 40 MG/0.4 ML Syringe SC (09:32)
[2022-05-25] MEDS: Vital High Protein 1,000 ML 20 ML GT (10:00)
[2022-05-25] MEDS: Chlorhexidine 15 ML PO ×2 (10:00→21:12)
[2022-05-25 13:17] LABS: Vancomycin, Trough Level 15.8 ug/mL (5.0-15.0)
--- NOTE | 2022-05-25 13:32 | PHA.PHARE_ITS ---
Consult Pharmacy has been consulted to manage selected antiobiotic: Vancomycin Type of Consult: Follow-up Suspected Infection: Bacteremia Labs: Sodium 137 mmol/L (136-145) 05/25/22 04:25 Potassium 3.6 mmol/L (3.5-5.1) 05/25/22 04:25 Chloride 103 mmol/L (98-107) 05/25/22 04:25 Carbon Dioxide 27.0 mmol/L (21.0-32.0) 05/25/22 04:25 Anion Gap 7 (5-15) 05/25/22 04:25 BUN 9 mg/dL (7-18) 05/25/22 04:25 Creatinine 0.57 mg/dL (0.70-1.30) L 05/25/22 04:25 Est GFR (MDRD) Af Amer 186 mL/min (>60) 05/25/22 04:25 Est GFR (MDRD) Non-Af 154 mL/min (>60) 05/25/22 04:25 BUN/Creatinine Ratio 15.8 RATIO (10-20) 05/25/22 04:25 Glucose 94 mg/dL (74-106) 05/25/22 04:25 Vancomycin Trough 15.8 ug/mL (5.0-15.0) H 05/25/22 12:00 Microbiology: Microbiology 05/24/22 08:40 Urine Catheter - Kirk Urine Culture - Preliminary Culture exhibits no growth. 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 05/19/22 19:00 Sputum, Tracheal Aspirate Gram Stain - Final 05/19/22 19:00 Sputum, Tracheal Aspirate Respiratory Culture - Final 05/19/22 09:10 Gastric Fluid/Contents Gastric Occult Blood - Final Occult Blood Positive Goal Trough: 15-20 mcg/mL Pharmacy Plan for Drug Dosing: VANCOMYCIN LEVEL RECEIVED Current Vancomycin Dose: 1500mg q8h Number of Doses Received: x1 loading dose, x2 1500mg doses Vancomycin Level: 15.8 Hours Since Last Dose: 7.5 hours since last dose Renal Function: SrCr 0.57 Renal Function Trend: SrCr stable (was 0.59 on 05/24/22) Lab/Micro: Vancomycin Plan/Comments: resulted trough of 15.8 is within the ordered goal trough range of 15-20. recommend continuing current dose of vancomycin and checking trough in 4 more doses Pending Level: 05/26/22 at 1200 Pharmacy Service will continue to monitor and adjust dosing as required. Follow-Up Labs: Trough Vancomycin - 05/26/22 at 1200
[2022-05-25] MEDS: Acetaminophen 650 MG/20 ML UDC GT (13:58)
[2022-05-25] MEDS: Propofol 10MG/Ml 1,000 MG/100 ML Bottle 16.8 MG CONT INF ×2 (14:04→20:00)
--- NOTE | 2022-05-25 15:27 | PN.HOSP_ITS ---
Subjective Subjective Patient seen and examined. He remains intubated. Today is day 6 on the ventilator. He remains sedated on propofol and fentanyl. He is on IV antibiotics, and on seroquel; he remains on a phenobarbital taper. Objective Data Objective Data Vital Signs: Vital Signs Temp Pulse Resp BP Pulse Ox O2 Del Method FiO2 100.1 F H 83 15 93/58 L 94 Mechanical Ventilator 25 05/25/22 14:00 05/25/22 15:00 05/25/22 15:00 05/25/22 15:00 05/25/22 15:00 05/25/22 15:00 05/25/22 15:00 Oxygen Delivery Method Mechanical Ventilator Weight: 246 lb 7.629 oz Body Mass Index (BMI) 31.5 Intake & Output: Intake and Output for Last 24 Hours 05/23/22 05/24/22 05/25/22 23:59 23:59 23:59 Intake Total 4563.3833 / 4748.5833 5512.72 / 5597.92 1924.29 / 1924.29 Output Total 2850 / 2850 7400 / 7400 2100 / 2100 Balance 1713.3833 / 1898.5833 -1887.28 / -1802.08 -175.71 / -175.71 Lab / Micro Data Result Diagrams: 05/25/22 04:25 05/25/22 04:25 Labs: Laboratory Results - last 24 hr 05/25/22 04:25: WBC 4.0 L, RBC 3.27 L, Hgb 12.5 L, Hct 35.6 L, MCV 108.9 H, MCH 38.2 H, MCHC 35.1 D, RDW Std Deviation 52.2 H, RDW Coeff of Valerio 13.0, Plt Count 216, MPV 9.8, Immature Gran % (Auto) 0.800, Neut % (Auto) 53.7, Lymph % (Auto) 17.3 L, [place] % (Auto) 24.9 H, Eos % (Auto) 2.3, Baso % (Auto) 1.0, Absolute Neuts (auto) 2.1, Absolute Lymphs (auto) 0.69 L, Nucleated RBC % 0 05/25/22 04:25: Sodium 137, Potassium 3.6, Chloride 103, Carbon Dioxide 27.0, Anion Gap 7, BUN 9, Creatinine 0.57 L, Estim Creat Clear Calc 147.49, Est GFR (MDRD) Af Amer 186, Est GFR (MDRD) Non-Af 154, BUN/Creatinine Ratio 15.8, Glucose 94, Calcium 7.7 L 05/25/22 12:00: Vancomycin Trough 15.8 H Micro: Microbiology 05/24/22 09:20 Sputum, Induced/Lukens Gram Stain - Final 05/24/22 09:20 Sputum, Induced/Lukens Respiratory Culture - Preliminary GNR lactose director of oncology 05/24/22 08:40 Urine Catheter - Kirk Urine Culture - Preliminary Culture exhibits no growth. 05/19/22 19:00 Sputum, Tracheal Aspirate Gram Stain - Final 05/19/22 19:00 Sputum, Tracheal Aspirate Respiratory Culture - Final 05/19/22 09:10 Gastric Fluid/Contents Gastric Occult Blood - Final Occult Blood Positive Radiography Diagnostic Testing: Radiology Impression KUB X-Ray 05/24/22 20:45 IMPRESSION: 1. Nasogastric tube with the tip likely in the cardia the stomach. 2. No bowel obstruction. 3. Kirk catheter. Electronically Signed: Abiodun Jeong MD at 21:40 EST , Chest X-Ray 05/25/22 03:35 IMPRESSION: 1. No pneumothorax identified on this portable exam. 2. Left basilar airspace disease and small pleural effusion. Findings may indicate atelectasis or infection. Electronically Signed: Jose Luis Heller MD at 4:02 EST , Rhythm Strip Rhythm Strip: Sinus Rhythm Rate: 87 Ectopy: PVC(s) Physical Exam Const Constitutional Narrative: Patient intubated and sedated. RASs score is +1 HEENT head/scalp atraumatic Head and Scalp: normocephalic Mouth: dry mucous membranes Eyes PERRL Neck no lymphadenopathy Resp Resp Narrative: diminished breath sounds bibasally, few crackles. Intubated and sedated. Cardio regular rate, regular rhythm, S1 normal heart sound and S2 normal heart sound GI normal to inspection, nondistended, normoactive bowel sounds, soft to palpation and non-tender Extremity normal to inspection Neuro Neuro Narrative: intubated, sedated, RASS score is -4 Assessment & Plan Assessment/Plan (1) Fever: (2) Acute hypercapnic respiratory failure: (3) Alcoholic hepatitis: (4) Alcohol withdrawal delirium: (5) Alcohol withdrawal seizure: QUALIFIERS: Complication of substance-induced condition: with delirium Qualified Code(s): F10.931 - Alcohol use, unspecified with withdrawal delirium; R56.9 - Unspecified convulsions PLAN: Plan #Acute hypoxic respiratory failure due to probable aspiration pneumonia * on IV zosyn and vancomycin * remains in positive balance by 11L * being diuresed with IV lasix * titrate oxygen to maintain sats >90% * breathing treatments with bronchodilators * #Acute delirium tremens due to acute alcohol withdrawal * remains intubated and sedated * on propofol nad phenobarbital taper * on seroquel. * on thiamine and folic acid * this has been complicated by seizures * #Acute blood loss anemia due to upper GI bleed * Hb has remained stable. * on PPI * * #UGI bleed due to esophagitis * on PPI * #Rhabdomyolysis: resolved #CHronic thrombocytopenia: resolved. Platelets are up to 216 today. #EMMANUEL: resolved. Cr is 0.57 DVT prophylaxis: lovenox Charges/Coding Visit Charges Inpatient E&M: 41328 Subs Hosp L3
[2022-05-25] MEDS: Senna/Docusate Sodium 1 Tablet 2 TABLET PO (21:12)
[2022-05-26] VITALS (33 sets, daily range): BP systolic 86–138; BP diastolic 52–80; PULSE 67–105; RESP 13–188; TEMP 36.9–38.2; O2SAT 93–106
[2022-05-26] MEDS: Propofol 10MG/Ml 1,000 MG/100 ML Bottle 16.8 MG CONT INF ×2 (01:15→05:00)
[2022-05-26] MEDS: Phenobarbital 32.4 MG Tablet PO ×4 (03:00→20:07)
[2022-05-26] MEDS: LORazepam 2 MG/ML Syringe IV ×4 (06:44→20:07)
[2022-05-26] MEDS: TITRATION PARAMETER CHANGE 1 EACH IV (06:52)
[2022-05-26 06:56] LABS: Absolute Lymphocyte Count 1.03 X10^3/uL (0.83-4.51); Absolute Neutrophil Count 2.3 X10^3/uL (2.0-7.7); Basophil# 0.05 X10^3/uL; Basophil% 1.2 % (0-1); Eosinophil# 0.15 X10^3/uL; Eosinophils% 3.5 % (0-5); Hematocrit 36.7 % (40-54); Lymphocyte # 1.03 X10^3/ul (0.83-4.51); Lymphocyte % 24.2 % (19-41); Mean Corp Hgb Conc 35.4 g/dL (32-36); Mean Corpuscular Hgb 38.1 pg (27.0-32.0); Mean Corpuscular Volume 107.6 fL (80-94); Mean Platelet Vol. 9.3 fl (6.2-12.0); Monocyte# 0.71 X10^3/uL; Monocyte% 16.7 % (0-10); NRBC Flagged by Analyzer 0 % (0-5); Neutrophil # 2.26 X10^3/uL (2.7-7.7); Neutrophil % 53.2 % (47-70); Platelet Count 264 K/mm3 (150-450); RBC Distribution Width CV 12.8 % (11.6-14.6); RBC Distribution Width SD 50.4 fl (35.1-43.9); Red Blood Count 3.41 M/mm3 (4.6-6.2); White Blood Count 4.3 K/mm3 (4.4-11.0)
[2022-05-26 07:06] LABS: Anion Gap 6 (5-15); BUN 10 mg/dL (7-18); Calcium,Total 8.3 mg/dL (8.5-10.1); Chloride 103 mmol/L (98-107); Creatinine, Serum 0.59 mg/dL (0.70-1.30); EST Glomerular Filtration Rate 148 mL/min (>60); Est Glom Filt Rate - Afr Amer 179 mL/min (>60); Estimated Creatinine Clearance 142.49 ml/min; Glucose 104 mg/dL (74-106); Potassium 3.6 mmol/L (3.5-5.1); Sodium Level 137 mmol/L (136-145)
--- NOTE | 2022-05-26 07:30 | PCM.PN.INT ---
Assessment & Plan Assessment/Plan (1) Alcohol withdrawal: (2) EMMANUEL (acute kidney injury): (3) Alcohol withdrawal delirium: (4) Alcohol withdrawal seizure: QUALIFIERS: Complication of substance-induced condition: with delirium Qualified Code(s): F10.931 - Alcohol use, unspecified with withdrawal delirium; R56.9 - Unspecified convulsions PLAN: Plan RECOMMENDATIONS: 1. Transition from propofol to Precedex to facilitate weaning from invasive mechanical ventilatory support. 2. Continue phenobarbital taper and as needed Ativan. 3. Continue tube feeds and twice daily PPI. 4. Spontaneous breathing and awakening trials per protocol 5. Continue Seroquel. 6. Continue Zosyn as ordered. Okay to discontinue vancomycin. 7. Continue appropriate DVT prophylaxis. 8. Continue diuretics as tolerated by hemodynamics and renal function. IMPRESSIONS: 1. Acute DTs following alcohol withdrawal The patient has a history of heavy alcohol use and is currently amidst acute alcohol withdrawal, which has been complicated by seizures. Plan to continue supportive measures including invasive mechanical ventilatory support, propofol, thiamine and folate, along with phenobarbital taper. Plan to continue attempts at daily spontaneous awakening trials to assess readiness for a trial of extubation. In order to help facilitate weaning from invasive mechanical ventilatory support, plan to transition the patient from propofol to Precedex today. 2. Acute hypercarbic respiratory failure secondary to possible aspiration pneumonia versus DTs The patient remains on empiric antimicrobials to cover for potential aspiration. He is overall net positive from a volume perspective for the hospitalization. Therefore, I agree with attempts at volume optimization with IV diuretics as tolerated by hemodynamics and renal function. Continue to wean FiO2 and PEEP to maintain oxygen saturations at or above 90%. 3. Acute blood loss anemia secondary to upper GI bleed secondary to grade D esophagitis Blood counts remain stable. Plan to continue PPI therapy per GI recommendations. 4. Rhabdomyolysis/chronic thrombocytopenia/acute kidney injury/hyperbilirubinemia Complicates care, management, recovery and prognosis. Continue supportive measures as noted above. TIME: 32 minutes of critical care time, independent of procedures, was spent addressing the patient's acute DTs, acute hypercarbic respiratory failure, blood loss anemia, review of all data and collaboration with the care team. Subjective Subjective The patient was seen and examined at the bedside this morning. Events from the last 24 hours have been reviewed. The patient is currently afebrile, hemodynamically stable and maintaining appropriate oxygen saturations on assist control mode mechanical ventilation with an FiO2 requirement of 25% and PEEP of 5. Today is day #8. The patient is currently sedated on propofol and fentanyl. He once again failed his spontaneous awakening trial this morning. He is currently documented to be overall net +9.7 L for the hospitalization. Objective Data Objective Data The patient's most recent lab work, culture data and imaging studies have all been personally reviewed. Sputum culture dated May 21, 2011 is demonstrating growth of a gram-negative mir, lactose necktie stitcher. Vital Signs: Vital Signs Temp Pulse Resp BP Pulse Ox O2 Del Method FiO2 99.2 F H 83 14 126/72 H 97 Mechanical Ventilator 25 05/26/22 06:00 05/26/22 06:00 05/26/22 06:00 05/26/22 06:00 05/26/22 06:00 05/26/22 06:00 05/26/22 06:00 Oxygen Delivery Method Mechanical Ventilator Weight: 241 lb 10.026 oz Body Mass Index (BMI) 31.5 Intake & Output: Intake and Output for Last 24 Hours 05/24/22 05/25/22 05/26/22 23:59 23:59 23:59 Intake Total 5512.72 / 5597.92 3308.69 / 3482.99 1055.6 / 1055.6 Output Total 7400 / 7400 3550 / 4100 1850 / 1850 Balance -1887.28 / -1802.08 -241.31 / -617.01 -794.4 / -794.4 Lab / Micro Data Attestation: I reviewed the patient's lab results. Result Diagrams: 05/26/22 06:47 05/26/22 06:47 Labs: Laboratory Results - last 24 hr 05/25/22 12:00: Vancomycin Trough 15.8 H 05/26/22 06:47: WBC 4.3 L, RBC 3.41 L, Hgb 13.0, Hct 36.7 L, MCV 107.6 H, MCH 38.1 H, MCHC 35.4, RDW Std Deviation 50.4 H, RDW Coeff of Valerio 12.8, Plt Count 264, MPV 9.3, Immature Gran % (Auto) 1.200 H, Neut % (Auto) 53.2, Lymph % (Auto) 24.2, [place] % (Auto) 16.7 H, Eos % (Auto) 3.5, Baso % (Auto) 1.2 H, Absolute Neuts (auto) 2.3, Absolute Lymphs (auto) 1.03, Nucleated RBC % 0 05/26/22 06:47: Sodium 137, Potassium 3.6, Chloride 103, Carbon Dioxide 28.0, Anion Gap 6, BUN 10, Creatinine 0.59 L, Estim Creat Clear Calc 142.49, Est GFR (MDRD) Af Amer 179, Est GFR (MDRD) Non-Af 148, BUN/Creatinine Ratio 17.0, Glucose 104, Calcium 8.3 L Micro: Microbiology 05/24/22 08:40 Urine Catheter - Kirk Urine Culture - Final Culture exhibits no growth. 05/24/22 08:40 Blood Culture (Wb) - Other Blood Culture - Preliminary No growth in 48 hours. 05/24/22 09:00 Blood Culture (Wb) - Anticubital Right Blood Culture - Preliminary No growth in 48 hours. 05/24/22 09:20 Sputum, Induced/Lukens Gram Stain - Final 05/24/22 09:20 Sputum, Induced/Lukens Respiratory Culture - Preliminary GNR lactose necktie stitcher 05/19/22 19:00 Sputum, Tracheal Aspirate Gram Stain - Final 05/19/22 19:00 Sputum, Tracheal Aspirate Respiratory Culture - Final 05/19/22 09:10 Gastric Fluid/Contents Gastric Occult Blood - Final Occult Blood Positive Radiography Diagnostic Testing: Radiology Impression KUB X-Ray 05/24/22 20:45 IMPRESSION: 1. Nasogastric tube with the tip likely in the cardia the stomach. 2. No bowel obstruction. 3. Kirk catheter. Electronically Signed: Abiodun Jeong MD at 21:40 EST , Chest X-Ray 05/25/22 03:35 IMPRESSION: 1. No pneumothorax identified on this portable exam. 2. Left basilar airspace disease and small pleural effusion. Findings may indicate atelectasis or infection. Electronically Signed: Jose Luis Heller MD at 4:02 EST , Rhythm Strip Rhythm Strip: Sinus Rhythm Rate: 87 Ectopy: PVC(s) Physical Exam Const Constitutional Narrative: Intubated, sedated and mechanically ventilated. Nutritional Appearance: obese HEENT normocephalic, head/scalp atraumatic and moist oral mucous membranes Mouth: endotracheal tube in place and OG tube in place Eyes PERRL and EOMs intact bilaterally Neck full ROM and no lymphadenopathy Chest inspection of chest normal Resp Effort and Inspection: Negative for actively coughing Auscultation: Negative for rales, rhonchi or wheezes Cardio regular rate, regular rhythm, S1 normal heart sound, S2 normal heart sound, no murmurs, no rub and no gallops GI GI Narrative: Obese. Large inguinal and umbilical hernia. Reducible. Narrative: Large inguinal hernia Extremity General Extremity: edema; Negative for clubbing Skin no rashes or lesions noted Neuro Sensorium / Orientation: sedated on vent Charges/Coding Procedures Hospitalists Procedures: [id number] Critial Care 1st Hr
[2022-05-26] MEDS: Chlorhexidine 15 ML PO ×2 (08:18→21:19)
[2022-05-26] MEDS: Enoxaparin 40 MG/0.4 ML Syringe SC (08:27)
[2022-05-26] MEDS: Furosemide 40 MG/4 ML Vial IV ×2 (08:30→16:48)
[2022-05-26] MEDS: Polyethylene Glycol 3350 17 GM PACKET GT ×2 (08:36→21:20)
[2022-05-26] MEDS: QUEtiapine 25 MG Tablet 50 MG NG ×2 (08:36→21:20)
[2022-05-26] MEDS: Propofol 10MG/Ml 1,000 MG/100 ML Bottle 13.2 MG CONT INF ×2 (08:37→16:44)
[2022-05-26] MEDS: Acetaminophen 650 MG/20 ML UDC GT (13:31)
--- NOTE | 2022-05-26 13:35 | PN.HOSP_ITS ---
Subjective Subjective Patient seen and examined. He remains intubated and sedated. RASS score is -4. Objective Data Objective Data Vital Signs: Vital Signs Temp Pulse Resp BP Pulse Ox O2 Del Method FiO2 99.2 F H 80 16 86/52 L 95 Mechanical Ventilator 25 05/26/22 11:00 05/26/22 13:26 05/26/22 13:26 05/26/22 11:00 05/26/22 13:26 05/26/22 11:00 05/26/22 13:26 Oxygen Delivery Method Mechanical Ventilator Weight: 241 lb 10.026 oz Body Mass Index (BMI) 31.5 Intake & Output: Intake and Output for Last 24 Hours 05/24/22 05/25/22 05/26/22 23:59 23:59 23:59 Intake Total 5512.72 / 5597.92 3308.69 / 3482.99 1866.32 / 1866.32 Output Total 7400 / 7400 3550 / 4100 2650 / 2650 Balance -1887.28 / -1802.08 -241.31 / -617.01 -783.68 / -783.68 Lab / Micro Data Result Diagrams: 05/26/22 06:47 05/26/22 06:47 Labs: Laboratory Results - last 24 hr 05/26/22 06:47: WBC 4.3 L, RBC 3.41 L, Hgb 13.0, Hct 36.7 L, MCV 107.6 H, MCH 38.1 H, MCHC 35.4, RDW Std Deviation 50.4 H, RDW Coeff of Valerio 12.8, Plt Count 264, MPV 9.3, Immature Gran % (Auto) 1.200 H, Neut % (Auto) 53.2, Lymph % (Auto) 24.2, [place] % (Auto) 16.7 H, Eos % (Auto) 3.5, Baso % (Auto) 1.2 H, Absolute Neuts (auto) 2.3, Absolute Lymphs (auto) 1.03, Nucleated RBC % 0 05/26/22 06:47: Sodium 137, Potassium 3.6, Chloride 103, Carbon Dioxide 28.0, Anion Gap 6, BUN 10, Creatinine 0.59 L, Estim Creat Clear Calc 142.49, Est GFR (MDRD) Af Amer 179, Est GFR (MDRD) Non-Af 148, BUN/Creatinine Ratio 17.0, Glucose 104, Calcium 8.3 L 05/26/22 12:00: Vancomycin Trough 20.0 H Micro: Microbiology 05/24/22 08:40 Urine Catheter - Kirk Urine Culture - Final Culture exhibits no growth. 05/24/22 08:40 Blood Culture (Wb) - Other Blood Culture - Preliminary No growth in 48 hours. 05/24/22 09:00 Blood Culture (Wb) - Anticubital Right Blood Culture - Preliminary No growth in 48 hours. 05/24/22 09:20 Sputum, Induced/Lukens Gram Stain - Final 05/24/22 09:20 Sputum, Induced/Lukens Respiratory Culture - Preliminary GNR lactose network programmer 05/19/22 19:00 Sputum, Tracheal Aspirate Gram Stain - Final 05/19/22 19:00 Sputum, Tracheal Aspirate Respiratory Culture - Final 05/19/22 09:10 Gastric Fluid/Contents Gastric Occult Blood - Final Occult Blood Positive Rhythm Strip Rhythm Strip: Sinus Rhythm Rate: 87 Ectopy: PVC(s) Physical Exam Const Constitutional Narrative: Patient intubated and sedated. RASs score is -4 todya HEENT normocephalic, head/scalp atraumatic and moist oral mucous membranes Eyes PERRL and conjunctivae normal Eyes Narrative: No scleral icterus Neck no lymphadenopathy and supple Resp no retractions, no use of accessory muscles and clear to auscultation bilaterally Resp Narrative: diminished breath sounds bibasally, few crackles. Intubated and sedated. Auscultation: rhonchi; Negative for crackles or wheezes Cardio regular rate, regular rhythm, S1 normal heart sound, S2 normal heart sound, no murmurs, no rub, no gallops and no clicks GI normal to inspection, nondistended, normoactive bowel sounds, soft to palpation, non-tender and non-distended Extremity normal to inspection and no clubbing, cyanosis or edema Extremity Narrative: Edema noted in all 4 extremities likely due to dependence and volume status, no clubbing or cyanosis Neuro Neuro Narrative: intubated, sedated, RASS score is -4 Psych Psych Narrative: Unable to cooperate secondary to intubation and sedation Assessment & Plan Assessment/Plan (1) Fever: (2) Acute hypercapnic respiratory failure: (3) Alcoholic hepatitis: (4) Alcohol withdrawal delirium: (5) Alcohol withdrawal seizure: QUALIFIERS: Complication of substance-induced condition: with delirium Qualified Code(s): F10.931 - Alcohol use, unspecified with withdrawal delirium; R56.9 - Unspecified convulsions PLAN: Plan #Acute hypoxic respiratory failure due to probable aspiration pneumonia * on IV zosyn and vancomycin; vancomycin to be discontinued today * remaiins intubated and sedated * remains in positive balance by 9.77L * being diuresed with IV lasix * titrate oxygen to maintain sats >90% * breathing treatments with bronchodilators * #Acute delirium tremens due to acute alcohol withdrawal * remains intubated and sedated * on propofol and phenobarbital taper; per critical care, being transitioned from propofol to precedex * on seroquel. * on thiamine and folic acid * this has been complicated by seizures * #Acute blood loss anemia due to upper GI bleed * Hb has remained stable. * on PPI * * #UGI bleed due to esophagitis * on PPI * #Rhabdomyolysis: resolved #CHronic thrombocytopenia: resolved. #EMMANUEL: resolved. Cr is 0.57 DVT prophylaxis: lovenox Charges/Coding Visit Charges Inpatient E&M: 21001 Subs Hosp L3
[2022-05-26] MEDS: Vital High Protein 1,000 ML 50 ML GT (13:36)
--- NOTE | 2022-05-26 17:29 | EKG12_ITS ---
Test Reason : [facility] Blood Pressure : / mmHG Vent. Rate : 084 BPM Atrial Rate : 084 BPM P-R Int : 200 ms QRS Dur : 092 ms QT Int : 396 ms P-R-T Axes : 066 045 064 degrees QTc Int : 467 ms Sinus rhythm with Blocked Premature atrial complexes Low voltage QRS (Limb Leads) Confirmed by CARI FLOYD, MATEO ([id number]), editor news RADHA KIM ([id number]) on 05/30/2022 7:36:13 AM Referred By: Lawrence CREWS Confirmed By:MATEO ALCALA MD
[2022-05-26] MEDS: Propofol 10MG/Ml 1,000 MG/100 ML Bottle 19.7 MG CONT INF (21:21)
[2022-05-27] VITALS (36 sets, daily range): BP systolic 93–156; BP diastolic 55–95; PULSE 77–115; RESP 13–25; TEMP 37.4–38.2; O2SAT 92–98
[2022-05-27] MEDS: LORazepam 2 MG/ML Syringe IV (00:59)
[2022-05-27] MEDS: Phenobarbital 32.4 MG Tablet PO ×2 (02:38→08:59)
[2022-05-27 03:28] LABS: Absolute Lymphocyte Count 0.95 X10^3/uL (0.83-4.51); Absolute Neutrophil Count 2.4 X10^3/uL (2.0-7.7); Basophil# 0.08 X10^3/uL; Basophil% 1.8 % (0-1); Eosinophil# 0.11 X10^3/uL; Eosinophils% 2.5 % (0-5); Hemoglobin 11.1 g/dL (13.0-16.5); Lymphocyte # 0.95 X10^3/ul (0.83-4.51); Lymphocyte % 21.3 % (19-41); Mean Corp Hgb Conc 34.7 g/dL (32-36); Mean Corpuscular Volume 106.7 fL (80-94); Mean Platelet Vol. 9.8 fl (6.2-12.0); Monocyte# 0.83 X10^3/uL; Monocyte% 18.7 % (0-10); NRBC Flagged by Analyzer 0 % (0-5); Neutrophil # 2.44 X10^3/uL (2.7-7.7); Neutrophil % 54.8 % (47-70); Platelet Count 289 K/mm3 (150-450); RBC Distribution Width CV 12.7 % (11.6-14.6); RBC Distribution Width SD 50.1 fl (35.1-43.9); White Blood Count 4.5 K/mm3 (4.4-11.0)
[2022-05-27 03:47] LABS: Anion Gap 5 (5-15); BUN 12 mg/dL (7-18); BUN/Creat Ratio 21.5 RATIO (10-20); Calcium,Total 8.1 mg/dL (8.5-10.1); Chloride 98 mmol/L (98-107); Creatinine, Serum 0.56 mg/dL (0.70-1.30); EST Glomerular Filtration Rate 157 mL/min (>60); Est Glom Filt Rate - Afr Amer 190 mL/min (>60); Estimated Creatinine Clearance 150.12 ml/min; Glucose 117 mg/dL (74-106); Potassium 2.7 mmol/L (3.5-5.1); Sodium Level 134 mmol/L (136-145)
[2022-05-27] MEDS: Propofol 10MG/Ml 1,000 MG/100 ML Bottle 16.4 MG CONT INF (04:34)
--- NOTE | 2022-05-27 07:17 | PN.CC_ITS ---
Assessment & Plan Assessment/Plan (1) Alcohol withdrawal: (2) EMMANUEL (acute kidney injury): (3) Alcohol withdrawal delirium: (4) Alcohol withdrawal seizure: QUALIFIERS: Complication of substance-induced condition: with delirium Qualified Code(s): F10.931 - Alcohol use, unspecified with withdrawal delirium; R56.9 - Unspecified convulsions PLAN: Plan RECOMMENDATIONS: 1. Continue current sedation regimen. 2. Continue phenobarbital taper and as needed Ativan. 3. Continue tube feeds and twice daily PPI. 4. Spontaneous breathing and awakening trials per protocol 5. Continue Seroquel. 6. Continue Zosyn as ordered. 7. Continue appropriate DVT prophylaxis. 8. Continue diuretics as tolerated by hemodynamics and renal function. 9. Aggressive potassium repletion. IMPRESSIONS: 1. Acute DTs following alcohol withdrawal The patient has a history of heavy alcohol use and is currently amidst acute alcohol withdrawal, which has been complicated by seizures. Plan to continue supportive measures including invasive mechanical ventilatory support, propofol, thiamine and folate, along with phenobarbital taper. Plan to continue attempts at daily spontaneous awakening trials to assess readiness for a trial of extubation. Continue current sedation regimen. 2. Acute hypercarbic respiratory failure secondary to possible aspiration pneumonia versus DTs The patient remains on empiric antimicrobials to cover for potential aspiration. He is overall net positive from a volume perspective for the hospitalization. Therefore, I agree with attempts at volume optimization with IV diuretics as tolerated by hemodynamics and renal function. Continue to wean FiO2 and PEEP to maintain oxygen saturations at or above 90%. 3. Acute blood loss anemia secondary to upper GI bleed secondary to grade D esophagitis Blood counts remain stable. Plan to continue PPI therapy per GI recommend ations. 4. Rhabdomyolysis/chronic thrombocytopenia/acute kidney injury/hyperbilirubi nemia Complicates care, management, recovery and prognosis. Continue supportive measures as noted above. TIME: 31 minutes of critical care time, independent of procedures, was spent addressing the patient's acute DTs, acute hypercarbic respiratory failure, blood loss anemia, review of all data and collaboration with the care team. Subjective Subjective The patient was seen and examined at the bedside this morning. Events from the last 24 hours have been reviewed. The patient is currently afebrile, hemodynamically stable and maintaining appropriate oxygen saturations on assist control mode of mechanical ventilation with an FiO2 requirement of 25%. Although the patient was placed on Precedex yesterday, he developed significant bradycardia, which required discontinuation of the medication. The patient is currently documented to be overall net +8.9 L for the hospitalization. Potassium is low this morning at 2.7 with a normal creatinine. The patient, again, failed his spontaneous awakening trial this morning. Objective Data Objective Data The patient's most recent lab work, culture data and imaging studies have all been personally reviewed. Sputum culture dated May 21, 2011 is demonst rating growth of a gram-negative mir, lactose gear room keeper. Vital Signs: Vital Signs Temp Pulse Resp BP Pulse Ox O2 Del Method O2 Flow Rate 99.7 F H 85 16 117/70 95 Mechanical Ventilator 2 05/27/22 06:59 05/27/22 07:12 05/27/22 07:12 05/27/22 06:59 05/27/22 07:12 05/27/22 06:59 05/26/22 17:00 FiO2 25 05/27/22 07:12 Oxygen Flow Rate (L/min) 2 Oxygen Delivery Method Mechanical Ventilator Weight: 239 lb 3.225 oz Body Mass Index (BMI) 31.5 Intake & Output: Intake and Output for Last 24 Hours 05/25/22 05/26/22 05/27/22 23:59 23:59 23:59 Intake Total 3308.69 / 3482.99 3293.38 / 3320.58 361.00 / 361.00 Output Total 3550 / 4100 4200 / 4500 1025 / 1025 Balance -241.31 / -617.01 -906.62 / -1179.42 -664.00 / -664.00 Lab / Micro Data Attestation: I reviewed the patient's lab results. Result Diagrams: 05/27/22 03:20 05/27/22 03:20 Labs: Laboratory Results - last 24 hr 05/26/22 12:00: Vancomycin Trough 20.0 H 05/27/22 03:20: WBC 4.5, RBC 3.00 L, Hgb 11.1 L, Hct 32.0 L, MCV 106.7 H, MCH 37.0 H, MCHC 34.7, RDW Std Deviation 50.1 H, RDW Coeff of Valerio 12.7, Plt Count 289, MPV 9.8, Immature Gran % (Auto) 0.900, Neut % (Auto) 54.8, Lymph % (Auto) 21.3, [place] % (Auto) 18.7 H, Eos % (Auto) 2.5, Baso % (Auto) 1.8 H, Absolute Neuts (auto) 2.4, Absolute Lymphs (auto) 0.95, Nucleated RBC % 0 05/27/22 03:20: Sodium 134 L, Potassium 2.7 L*, Chloride 98, Carbon Dioxide 31.0, Anion Gap 5, BUN 12, Creatinine 0.56 L, Estim Creat Clear Calc 150.12, Est GFR (MDRD) Af Amer 190, Est GFR (MDRD) Non-Af 157, BUN/Creatinine Ratio 21.5 H, Glucose 117 H, Calcium 8.1 L Micro: Microbiology 05/24/22 08:40 Urine Catheter - Kirk Urine Culture - Final Culture exhibits no growth. 05/24/22 08:40 Blood Culture (Wb) - Other Blood Culture - Preliminary No growth in 48 hours. 05/24/22 09:00 Blood Culture (Wb) - Anticubital Right Blood Culture - Preliminary No growth in 48 hours. 05/24/22 09:20 Sputum, Induced/Lukens Gram Stain - Final 05/24/22 09:20 Sputum, Induced/Lukens Respiratory Culture - Preliminary GNR lactose gear room keeper 05/19/22 19:00 Sputum, Tracheal Aspirate Gram Stain - Final 05/19/22 19:00 Sputum, Tracheal Aspirate Respiratory Culture - Final 05/19/22 09:10 Gastric Fluid/Contents Gastric Occult Blood - Final Occult Blood Positive Radiography Diagnostic Testing: Radiology Impression KUB X-Ray 05/24/22 20:45 IMPRESSION: 1. Nasogastric tube with the tip likely in the cardia the stomach. 2. No bowel obstruction. 3. Kirk catheter. Electronically Signed: Abiodun Jeong MD at 21:40 EST , Chest X-Ray 05/25/22 03:35 IMPRESSION: 1. No pneumothorax identified on this portable exam. 2. Left basilar airspace disease and small pleural effusion. Findings may indicate atelectasis or infection. Electronically Signed: Jose Luis Heller MD at 4:02 EST , Rhythm Strip Rhythm Strip: Sinus Rhythm Rate: 87 Ectopy: PVC(s) Physical Exam Const Constitutional Narrative: Intubated, sedated and mechanically ventilated. Nutritional Appearance: obese HEENT normocephalic, head/scalp atraumatic and moist oral mucous membranes Mouth: endotracheal tube in place and OG tube in place Eyes PERRL and EOMs intact bilaterally Neck full ROM and no lymphadenopathy Chest inspection of chest normal Resp Effort and Inspection: Negative for actively coughing Auscultation: Negative for rales, rhonchi or wheezes Cardio regular rate, regular rhythm, S1 normal heart sound, S2 normal heart sound, no murmurs, no rub and no gallops GI GI Narrative: Obese. Large inguinal and umbilical hernia. Reducible. Narrative: Large inguinal hernia Extremity General Extremity: edema; Negative for clubbing Skin no rashes or lesions noted Neuro Sensorium / Orientation: sedated on vent Psych Activity / Motor Behavior: restless Charges/Coding Procedures Hospitalists Procedures: [id number] Critial Care 1st Hr
[2022-05-27] MEDS: Propofol 10MG/Ml 1,000 MG/100 ML Bottle 26.3 MG CONT INF ×5 (08:32→22:36)
[2022-05-27] MEDS: Chlorhexidine 15 ML PO ×2 (08:33→21:47)
[2022-05-27] MEDS: QUEtiapine 25 MG Tablet 50 MG NG ×2 (09:18→21:52)
[2022-05-27] MEDS: Furosemide 40 MG/4 ML Vial IV ×2 (09:19→18:05)
[2022-05-27] MEDS: Polyethylene Glycol 3350 17 GM PACKET GT ×2 (09:19→21:52)
[2022-05-27] MEDS: Enoxaparin 40 MG/0.4 ML Syringe SC (09:19)
[2022-05-27] MEDS: Vital High Protein 1,000 ML 50 ML GT (09:21)
--- NOTE | 2022-05-27 12:24 | PN.HOSP_ITS ---
Subjective Subjective Patient seen and examined. He remains intubated and sedated. RASS score is -4. Objective Data Objective Data Vital Signs: Vital Signs Temp Pulse Resp BP Pulse Ox O2 Del Method O2 Flow Rate 99.8 F H 93 15 94/62 96 Mechanical Ventilator 2 05/27/22 08:00 05/27/22 11:12 05/27/22 11:12 05/27/22 11:00 05/27/22 11:12 05/27/22 11:00 05/26/22 17:00 FiO2 25 05/27/22 11:12 Oxygen Flow Rate (L/min) 2 Oxygen Delivery Method Mechanical Ventilator Weight: 239 lb 3.225 oz Body Mass Index (BMI) 31.5 Intake & Output: Intake and Output for Last 24 Hours 05/25/22 05/26/22 05/27/22 23:59 23:59 23:59 Intake Total 3308.69 / 3482.99 3293.38 / 3320.58 2126.65 / 2126.65 Output Total 3550 / 4100 4200 / 4500 3025 / 3025 Balance -241.31 / -617.01 -906.62 / -1179.42 -898.35 / -898.35 Lab / Micro Data Result Diagrams: 05/27/22 03:20 05/27/22 03:20 Labs: Laboratory Results - last 24 hr 05/26/22 12:00: Vancomycin Trough 20.0 H 05/27/22 03:20: WBC 4.5, RBC 3.00 L, Hgb 11.1 L, Hct 32.0 L, MCV 106.7 H, MCH 37.0 H, MCHC 34.7, RDW Std Deviation 50.1 H, RDW Coeff of Valerio 12.7, Plt Count 289, MPV 9.8, Immature Gran % (Auto) 0.900, Neut % (Auto) 54.8, Lymph % (Auto) 21.3, [place] % (Auto) 18.7 H, Eos % (Auto) 2.5, Baso % (Auto) 1.8 H, Absolute Neuts (auto) 2.4, Absolute Lymphs (auto) 0.95, Nucleated RBC % 0 05/27/22 03:20: Sodium 134 L, Potassium 2.7 L*, Chloride 98, Carbon Dioxide 31.0, Anion Gap 5, BUN 12, Creatinine 0.56 L, Estim Creat Clear Calc 150.12, Est GFR (MDRD) Af Amer 190, Est GFR (MDRD) Non-Af 157, BUN/Creatinine Ratio 21.5 H, Glucose 117 H, Calcium 8.1 L Micro: Microbiology 05/24/22 09:20 Sputum, Induced/Lukens Gram Stain - Final 05/24/22 09:20 Sputum, Induced/Lukens Respiratory Culture - Final Escherichia coli 05/24/22 08:40 Urine Catheter - Kirk Urine Culture - Final Culture exhibits no growth. 05/24/22 08:40 Blood Culture (Wb) - Other Blood Culture - Preliminary No growth in 48 hours. 05/24/22 09:00 Blood Culture (Wb) - Anticubital Right Blood Culture - Preliminary No growth in 48 hours. 05/19/22 19:00 Sputum, Tracheal Aspirate Gram Stain - Final 05/19/22 19:00 Sputum, Tracheal Aspirate Respiratory Culture - Final 05/19/22 09:10 Gastric Fluid/Contents Gastric Occult Blood - Final Occult Blood Positive Rhythm Strip Rhythm Strip: Sinus Rhythm Rate: 87 Ectopy: PVC(s) Physical Exam Const Constitutional Narrative: Patient intubated and sedated. RASs score remains -4 HEENT normocephalic, head/scalp atraumatic and moist oral mucous membranes Head and Scalp: normocephalic Eyes PERRL and conjunctivae normal Eyes Narrative: No scleral icterus Neck no lymphadenopathy and supple Resp Resp Narrative: diminished breath sounds bibasally, few crackles. Intubated and sedated. Auscultation: rhonchi; Negative for crackles or wheezes Cardio regular rate, regular rhythm, S1 normal heart sound, S2 normal heart sound, no murmurs, no rub, no gallops and no clicks GI normal to inspection, nondistended, normoactive bowel sounds, soft to palpation, non-tender and non-distended Extremity normal to inspection and no clubbing, cyanosis or edema Extremity Narrative: E Neuro Neuro Narrative: intubated, sedated, RASS score is -4 Psych Psych Narrative: Unable to cooperate secondary to intubation and sedation Assessment & Plan Assessment/Plan (1) Fever: (2) Acute hypercapnic respiratory failure: (3) Alcoholic hepatitis: (4) Alcohol withdrawal delirium: (5) Alcohol withdrawal seizure: QUALIFIERS: Complication of substance-induced condition: with delirium Qualified Code(s): F10.931 - Alcohol use, unspecified with withdrawal delirium; R56.9 - Unspecified convulsions PLAN: Plan #Acute hypoxic respiratory failure due to probable aspiration pneumonia * on IV zosyn; vancomycin discontinued * remains intubated and sedated * remains in positive balance by 9.77L * being diuresed with IV lasix * titrate oxygen to maintain sats >90% * breathing treatments with bronchodilators * #Acute delirium tremens due to acute alcohol withdrawal * remains intubated and sedated * remains on phenobarb taper and ativan prn * on seroquel. * on propofol and phenobarbital taper; per critical care, being transitioned from propofol to precedex * on seroquel. * on thiamine and folic acid * this has been complicated by seizures * #Hypokalemia: K is 2.7. Will replace and trend #Acute blood loss anemia due to upper GI bleed * Hb has remained stable. * on PPI * #UGI bleed due to esophagitis * on PPI * #Rhabdomyolysis: resolved #CHronic thrombocytopenia: resolved. #EMMANUEL: resolved. DVT prophylaxis: lovenox Charges/Coding Visit Charges Inpatient E&M: 72800 Subs Hosp L3
[2022-05-27] MEDS: Acetaminophen 650 MG/20 ML UDC GT (18:49)
[2022-05-27 19:16] LABS: Triglycerides 915 mg/dL
[2022-05-28] VITALS (39 sets, daily range): BP systolic 95–179; BP diastolic 52–108; PULSE 82–126; RESP 12–28; TEMP 37.3–39.6; O2SAT 86–100
[2022-05-28] MEDS: LORazepam 2 MG/ML Syringe IV ×3 (03:03→07:08)
[2022-05-28] MEDS: Propofol 10MG/Ml 1,000 MG/100 ML Bottle 9.9 MG CONT INF (03:15)
[2022-05-28 03:46] LABS: Absolute Lymphocyte Count 1.19 X10^3/uL (0.83-4.51); Absolute Neutrophil Count 3.7 X10^3/uL (2.0-7.7); Basophil# 0.06 X10^3/uL; Eosinophil# 0.12 X10^3/uL; Hematocrit 34.7 % (40-54); Hemoglobin 12.2 g/dL (13.0-16.5); Lymphocyte # 1.19 X10^3/ul (0.83-4.51); Lymphocyte % 19.9 % (19-41); Mean Corp Hgb Conc 35.2 g/dL (32-36); Mean Corpuscular Hgb 37.1 pg (27.0-32.0); Mean Corpuscular Volume 105.5 fL (80-94); Mean Platelet Vol. 9.8 fl (6.2-12.0); Monocyte# 0.88 X10^3/uL; Monocyte% 14.7 % (0-10); NRBC Flagged by Analyzer 0 % (0-5); Neutrophil % 61.7 % (47-70); Platelet Count 362 K/mm3 (150-450); RBC Distribution Width CV 12.6 % (11.6-14.6); RBC Distribution Width SD 49.1 fl (35.1-43.9); Red Blood Count 3.29 M/mm3 (4.6-6.2)
[2022-05-28 03:51] LABS: Anion Gap 6 (5-15); BUN 13 mg/dL (7-18); BUN/Creat Ratio 21.3 RATIO (10-20); Calcium,Total 8.5 mg/dL (8.5-10.1); Chloride 97 mmol/L (98-107); Creatinine, Serum 0.61 mg/dL (0.70-1.30); EST Glomerular Filtration Rate 142 mL/min (>60); Est Glom Filt Rate - Afr Amer 172 mL/min (>60); Estimated Creatinine Clearance 137.81 ml/min; Glucose 128 mg/dL (74-106); Potassium 3.2 mmol/L (3.5-5.1); Sodium Level 134 mmol/L (136-145)
[2022-05-28] MEDS: QUEtiapine 25 MG Tablet 50 MG NG (04:33)
[2022-05-28] MEDS: Acetaminophen 650 MG/20 ML UDC GT ×2 (04:36→11:37)
--- NOTE | 2022-05-28 07:04 | PCM.PN.INT ---
Assessment & Plan Assessment/Plan (1) Alcohol withdrawal: (2) EMMANUEL (acute kidney injury): (3) Alcohol withdrawal delirium: (4) Alcohol withdrawal seizure: QUALIFIERS: Complication of substance-induced condition: with delirium Qualified Code(s): F10.931 - Alcohol use, unspecified with withdrawal delirium; R56.9 - Unspecified convulsions PLAN: Plan RECOMMENDATIONS: 1. Resume prior ventilator settings and sedation regimen. 2. Continue as needed Ativan. 3. Resume tube feeds and twice daily PPI. 4. Spontaneous breathing and awakening trials per protocol 5. Okay to discontinue Zosyn after today. 6. Continue appropriate DVT prophylaxis. 7. Continue diuretics as tolerated by hemodynamics and renal function. IMPRESSIONS: 1. Acute DTs following alcohol withdrawal The patient has a history of heavy alcohol use and is currently amidst acute alcohol withdrawal, which has been complicated by seizures. Plan to continue supportive measures including invasive mechanical ventilatory support, propofol, thiamine and folate, and as needed Ativan. The patient has completed his phenobarbital taper. Plan to continue attempts at daily spontaneous awakening trials to assess readiness for a trial of extubation. Continue current sedation regimen. 2. Acute hypercarbic respiratory failure secondary to E. coli pneumonia The patient has now completed a 7-day treatment course of antimicrobials. He is overall net positive from a volume perspective for the hospitalization. Therefore, I agree with attempts at volume optimization with IV diuretics as tolerated by hemodynamics and renal function. Continue to wean FiO2 and PEEP to maintain oxygen saturations at or above 90%. The patient did develop postextubation stridor on the morning of May 28. Ultimately, he did have to be reintubated. He has been started on IV Solu-Medrol daily for now, pending reattempt at extubation. 3. Acute blood loss anemia secondary to upper GI bleed secondary to grade D esophagitis Blood counts remain stable. Plan to continue PPI therapy per GI recommendations. 4. Rhabdomyolysis/chronic thrombocytopenia/acute kidney injury/hyperbilirubinemia Complicates care, management, recovery and prognosis. Continue supportive measures as noted above. TIME: 45 minutes of critical care time, inclusive of procedures, was spent addressing the patient's acute DTs, acute hypercarbic respiratory failure, blood loss anemia, review of all data and collaboration with the care team. Subjective Subjective The patient was seen and examined at the bedside this morning. Events from the last 24 hours have been reviewed. The patient is currently afebrile, hemodynamically stable and maintaining appropriate oxygen saturations on spontaneous mode mechanical ventilation with an FiO2 requirement of 25%. The patient has actually done relatively well this morning on his spontaneous awakening and breathing trials. He is able to follow simple commands. The patient is currently documented to be overall net +8.3 L for the hospitalization. Potassium is low at 3.2. Following my initial evaluation of the patient this morning he was successfully extubated to nasal cannula oxygen. However, a short time following his extubation, the patient developed stridor. This was medically managed with racemic epinephrine and BiPAP. However, despite the aforementioned, the patient continued to struggle from a respiratory perspective and was ultimately reintubated. Intubation Indication: Impending respiratory failure Consent was obtained from: Performed emergently The patient was placed in the appropriate sniffing position. Preoxygenated sedation via BiPAP was provided for a minimum of 3 minutes. The patient had continuous cardiac as well as pulse oximetry monitoring during the procedure. Procedure sedation was provided by the administration of 4 mg of Versed and 20 mg of etomidate. Direct laryngoscopy was then performed using a number 4 MAC blade, which revealed a grade 1 view. A 7.5 mm endotracheal tube was visualized advancing between the cords to the level of 28 cm at the lip. The stylette was then removed and discarded. Tube placement was confirmed by fogging in the tube along with equal and bilateral breath sounds. Colorimetric change was visualized on the CO2 meter. The cuff was then inflated and the tube secured using a commercially available device. A good pulse oximetry waveform was seen on the monitor throughout the procedure. A portable chest x-ray has been ordered to confirm appropriate placement. The patient tolerated the procedure well. Objective Data Objective Data The patient's most recent lab work, culture data and imaging studies have all been personally reviewed. Sputum culture dated May 21, 2011 is demonstrating growth of E. coli, which is pansensitive. Vital Signs: Vital Signs Temp Pulse Resp BP Pulse Ox O2 Del Method O2 Flow Rate 99.5 F H 99 16 141/95 H 93 Mechanical Ventilator 25 05/28/22 06:00 05/28/22 06:00 05/28/22 06:00 05/28/22 06:00 05/28/22 06:00 05/28/22 06:00 05/27/22 17:00 FiO2 25 12/15/22 06:00 Oxygen Flow Rate (L/min) 25 Oxygen Delivery Method Mechanical Ventilator Weight: 235 lb 10.786 oz Body Mass Index (BMI) 31.5 Intake & Output: Intake and Output for Last 24 Hours 05/26/22 05/27/22 05/28/22 23:59 23:59 23:59 Intake Total 3293.38 / 3320.58 3164.65 / 3350.95 1455.89 / 1455.89 Output Total 4200 / 4500 5565 / 5715 385 / 385 Balance -906.62 / -1179.42 -2400.35 / -2364.05 1070.89 / 1070.89 Lab / Micro Data Attestation: I reviewed the patient's lab results. Result Diagrams: 05/28/22 03:10 05/28/22 03:10 Labs: Laboratory Results - last 24 hr 05/27/22 18:45: Triglycerides 915 H 05/28/22 03:10: WBC 6.0, RBC 3.29 L, Hgb 12.2 L, Hct 34.7 L, MCV 105.5 H, MCH 37.1 H, MCHC 35.2, RDW Std Deviation 49.1 H, RDW Coeff of Valerio 12.6, Plt Count 362, MPV 9.8, Immature Gran % (Auto) 0.700, Neut % (Auto) 61.7, Lymph % (Auto) 19.9, [place] % (Auto) 14.7 H, Eos % (Auto) 2.0, Baso % (Auto) 1.0, Absolute Neuts (auto) 3.7, Absolute Lymphs (auto) 1.19, Nucleated RBC % 0 05/28/22 03:10: Sodium 134 L, Potassium 3.2 L, Chloride 97 L, Carbon Dioxide 31.0, Anion Gap 6, BUN 13, Creatinine 0.61 L, Estim Creat Clear Calc 137.81, Est GFR (MDRD) Af Amer 172, Est GFR (MDRD) Non-Af 142, BUN/Creatinine Ratio 21.3 H, Glucose 128 H, Calcium 8.5 Micro: Microbiology 05/24/22 09:20 Sputum, Induced/Lukens Gram Stain - Final 05/24/22 09:20 Sputum, Induced/Lukens Respiratory Culture - Final Escherichia coli 05/24/22 08:40 Urine Catheter - Kirk Urine Culture - Final Culture exhibits no growth. 05/24/22 08:40 Blood Culture (Wb) - Other Blood Culture - Preliminary No growth in 48 hours. 05/24/22 09:00 Blood Culture (Wb) - Anticubital Right Blood Culture - Preliminary No growth in 48 hours. 05/19/22 19:00 Sputum, Tracheal Aspirate Gram Stain - Final 05/19/22 19:00 Sputum, Tracheal Aspirate Respiratory Culture - Final 05/19/22 09:10 Gastric Fluid/Contents Gastric Occult Blood - Final Occult Blood Positive Radiography Diagnostic Testing: Radiology Impression KUB X-Ray 05/24/22 20:45 IMPRESSION: 1. Nasogastric tube with the tip likely in the cardia the stomach. 2. No bowel obstruction. 3. Kirk catheter. Electronically Signed: Abiodun Jeong MD at 21:40 EST , Chest X-Ray 05/25/22 03:35 IMPRESSION: 1. No pneumothorax identified on this portable exam. 2. Left basilar airspace disease and small pleural effusion. Findings may indicate atelectasis or infection. Electronically Signed: Jose Luis Heller MD at 4:02 EST , Rhythm Strip Rhythm Strip: Sinus Rhythm Rate: 87 Ectopy: PVC(s) Physical Exam Const alert Constitutional Narrative: Currently on a spontaneous breathing trial. He is alert and able to follow some simple commands. Nutritional Appearance: obese HEENT normocephalic, head/scalp atraumatic and moist oral mucous membranes Mouth: endotracheal tube in place and OG tube in place Eyes PERRL and EOMs intact bilaterally Neck full ROM and no lymphadenopathy Chest inspection of chest normal Resp Effort and Inspection: Negative for actively coughing Auscultation: Negative for rales, rhonchi or wheezes Cardio regular rate, regular rhythm, S1 normal heart sound, S2 normal heart sound, no murmurs, no rub and no gallops GI GI Narrative: Obese. Large inguinal and umbilical hernia. Reducible. Narrative: Large inguinal hernia Extremity General Extremity: edema; Negative for clubbing Skin no rashes or lesions noted Neuro Neuro Narrative: Alert and able to follow simple commands. Psych Activity / Motor Behavior: restless Charges/Coding Procedures Hospitalists Procedures: 97455 Critial Care 1st Hr
--- NOTE | 2022-05-28 07:20 | NURSING ---
Pt extubated at 0640. Large amounts of secretions suctioned out. Restraints, Fentanyl, and Propofol DC'd. Pt began on 2L NC and was noted to be tachypnic with audible stridor. Increased to 5L NC with little improvement. Bipap applied and nebulized epi administered with noted improvement. MD aware of status and following closely.
[2022-05-28] MEDS: Racepinephrine HCl 0.5 ML VIAL.NEB. INHALATION (07:27)
[2022-05-28] MEDS: Potassium Chloride 10mEq/100mL 10 MEQ/100 ML IV.SOLN. 100 MEQ IV BOLUS ×2 (07:45→08:54)
[2022-05-28] MEDS: Furosemide 40 MG/4 ML Vial IV ×2 (08:57→16:57)
[2022-05-28] MEDS: Etomidate 20 MG/10 ML Vial IV (09:35)
[2022-05-28] MEDS: Propofol 10MG/Ml 1,000 MG/100 ML Bottle 6.4 MG CONT INF (09:40)
--- NOTE | 2022-05-28 09:41 | RAD_ITS ---
STUDY: X-RAY CHEST REASON FOR EXAM: Male, 62 years old. Re-Intubated TECHNIQUE: Single AP portable view of the chest. COMPARISON: Comparison is made with prior study dated 05/25/2022. FINDINGS: An endotracheal tube in situ. The tip is at 5.6 cm proximal to erik. An orogastric tube is seen with the tip in the body of the stomach. A right-sided PICC line catheter has been placed and is at the junction of the superior vena cava and right atrium. Mild increased markings at the lung bases more prominent at the left lung base suggestive of either bibasilar infiltrates versus atelectasis. There is no demonstrated pleural abnormality. Normal size heart. Normal mediastinum and saida. Normal visualized pulmonary arteries. Normal visualized aortic arch and descending thoracic aorta. Normal visualized thoracic spine. Normal visualized ribs, clavicles, and shoulders. There is no demonstrated abnormality of the visualized soft tissue structures of the upper abdomen. RAD/Chest 1 View (Portable) IMPRESSION: Bibasilar atelectasis and/or infiltrates more prominent at the left lung base. Support tubes are in good position. Electronically Signed: Jerel Teixeira MD at 12:24 EST ,
[2022-05-28] MEDS: Midazolam 2 MG/2 ML Syringe 4 MG IV (09:45)
[2022-05-28] MEDS: Chlorhexidine 15 ML PO ×2 (10:31→23:05)
[2022-05-28] MEDS: Potassium Chloride 10mEq/100mL 10 MEQ/100 ML IV.SOLN. 200 MEQ IV BOLUS ×2 (10:31→11:28)
[2022-05-28] MEDS: Enoxaparin 40 MG/0.4 ML Syringe SC (10:32)
[2022-05-28] MEDS: Succinylcholine Chloride 200 MG/10 ML SYRINGE 100 MG IV (10:39)
--- NOTE | 2022-05-28 10:52 | PN.HOSP_ITS ---
Subjective Subjective Patient seen and examined. He was extubated this morning and was on oxygen by face mask. Per his nurse, patient had a bit of wheezing and stridor after extubation, and had to be given racemic epinephrine. He had to be reintubated later this morning due to worsening shortness of breath. Unable to do review of systems as patient is quite lethargic. Objective Data Objective Data Vital Signs: Vital Signs Temp Pulse Resp BP Pulse Ox O2 Del Method O2 Flow Rate 99.5 F H 111 H 18 115/74 100 Mechanical Ventilator 15 05/28/22 06:00 05/28/22 10:00 05/28/22 10:00 05/28/22 10:00 05/28/22 10:00 05/28/22 10:00 05/28/22 07:10 FiO2 100 05/28/22 10:00 Oxygen Flow Rate (L/min) 15 Oxygen Delivery Method Mechanical Ventilator Weight: 235 lb 10.786 oz Body Mass Index (BMI) 31.5 Intake & Output: Intake and Output for Last 24 Hours 05/26/22 05/27/22 05/28/22 23:59 23:59 23:59 Intake Total 3293.38 / 3320.58 3164.65 / 3350.95 1857.56 / 1857.56 Output Total 4200 / 4500 5565 / 5715 385 / 385 Balance -906.62 / -1179.42 -2400.35 / -2364.05 1472.56 / 1472.56 Lab / Micro Data Result Diagrams: 05/28/22 03:10 05/28/22 03:10 Labs: Laboratory Results - last 24 hr 05/27/22 18:45: Triglycerides 915 H 05/28/22 03:10: WBC 6.0, RBC 3.29 L, Hgb 12.2 L, Hct 34.7 L, MCV 105.5 H, MCH 37.1 H, MCHC 35.2, RDW Std Deviation 49.1 H, RDW Coeff of Valerio 12.6, Plt Count 362, MPV 9.8, Immature Gran % (Auto) 0.700, Neut % (Auto) 61.7, Lymph % (Auto) 19.9, [place] % (Auto) 14.7 H, Eos % (Auto) 2.0, Baso % (Auto) 1.0, Absolute Neuts (auto) 3.7, Absolute Lymphs (auto) 1.19, Nucleated RBC % 0 05/28/22 03:10: Sodium 134 L, Potassium 3.2 L, Chloride 97 L, Carbon Dioxide 31.0, Anion Gap 6, BUN 13, Creatinine 0.61 L, Estim Creat Clear Calc 137.81, Est GFR (MDRD) Af Amer 172, Est GFR (MDRD) Non-Af 142, BUN/Creatinine Ratio 21.3 H, Glucose 128 H, Calcium 8.5 Micro: Microbiology 05/24/22 09:20 Sputum, Induced/Lukens Gram Stain - Final 05/24/22 09:20 Sputum, Induced/Lukens Respiratory Culture - Final Escherichia coli 05/24/22 08:40 Urine Catheter - Kirk Urine Culture - Final Culture exhibits no growth. 05/24/22 08:40 Blood Culture (Wb) - Other Blood Culture - Preliminary No growth in 48 hours. 05/24/22 09:00 Blood Culture (Wb) - Anticubital Right Blood Culture - Preliminary No growth in 48 hours. 05/19/22 19:00 Sputum, Tracheal Aspirate Gram Stain - Final 05/19/22 19:00 Sputum, Tracheal Aspirate Respiratory Culture - Final 05/19/22 09:10 Gastric Fluid/Contents Gastric Occult Blood - Final Occult Blood Positive Rhythm Strip Rhythm Strip: Sinus Rhythm Rate: 87 Ectopy: PVC(s) Physical Exam Const Constitutional Narrative: Patient intubated and sedated. RASs score remains -4 HEENT normocephalic, head/scalp atraumatic and moist oral mucous membranes Head and Scalp: normocephalic Eyes PERRL and conjunctivae normal Neck no lymphadenopathy and supple Resp no retractions, no use of accessory muscles and clear to auscultation bilaterally Resp Narrative: diminished breath sounds bibasally, few crackles. Intubated and sedated. Auscultation: rhonchi; Negative for crackles or wheezes Cardio regular rate, regular rhythm, S1 normal heart sound, S2 normal heart sound, no murmurs, no rub, no gallops and no clicks GI normal to inspection, nondistended, normoactive bowel sounds, soft to palpation, non-tender and non-distended Extremity normal to inspection and no clubbing, cyanosis or edema Neuro Neuro Narrative: intubated, sedated, RASS score is -4 Assessment & Plan Assessment/Plan (1) Fever: (2) Acute hypercapnic respiratory failure: (3) Alcoholic hepatitis: (4) Alcohol withdrawal delirium: (5) Alcohol withdrawal seizure: QUALIFIERS: Complication of substance-induced condition: with delirium Qualified Code(s): F10.931 - Alcohol use, unspecified with withdrawal delirium; R56.9 - Unspecified convulsions PLAN: Plan #Acute hypoxic respiratory failure due to probable aspiration pneumonia * on IV zosyn; vancomycin discontinued * remains intubated and sedated; was extubated this morning, but had stridor and wheezing. He received racemic epinephrine, but had to be reintubated * remains in positive balance by 8.77L * being diuresed with IV lasix * titrate oxygen to maintain sats >90% * breathing treatments with bronchodilators * #Acute delirium tremens due to acute alcohol withdrawal * remains intubated and sedated * remains on phenobarb taper and ativan prn * on seroquel. * on propofol and phenobarbital taper; per critical care, being transitioned from propofol to precedex * on seroquel. * on thiamine and folic acid * this has been complicated by seizures * #Hypokalemia: K is 3.2. Will replace and trend #Acute blood loss anemia due to upper GI bleed * Hb has remained stable. * on PPI * #UGI bleed due to esophagitis * on PPI * #Rhabdomyolysis: resolved #CHronic thrombocytopenia: resolved. #EMMANUEL: resolved. DVT prophylaxis: lovenox Charges/Coding Visit Charges Inpatient E&M: 40354 Subs Hosp L3
[2022-05-28 13:35] LABS: Allen Test Positive; Base Excess 4 mmol/L (-2 to +2); Bicarbonate 28.1 mmol/L (22-26); Blood Gas Specimen Type ART; FI02 40; Mode AC; O2 Delivery Device Adult Vent; PEEP 5; PO2 67 mmHG (75-100); RR 14; SITE L Radial; SO2 94 % (95-99); Total Carbon Dioxide 29 mmol/L; Vt 500; pCO2 40.4 mmHg (35-45); pH 7.45 (7.35-7.45)
[2022-05-28] MEDS: Propofol 10MG/Ml 1,000 MG/100 ML Bottle 19.2 MG CONT INF ×3 (14:15→19:43)
[2022-05-28] MEDS: Propofol 10MG/Ml 1,000 MG/100 ML Bottle 32.1 MG CONT INF (23:43)
[2022-05-29] VITALS (35 sets, daily range): BP systolic 96–133; BP diastolic 55–94; PULSE 69–111; RESP 14–29; TEMP 36.7–37.9; O2SAT 92–98
[2022-05-29] MEDS: Propofol 10MG/Ml 1,000 MG/100 ML Bottle 25.7 MG CONT INF (02:45)
[2022-05-29 03:47] LABS: Absolute Lymphocyte Count 1.52 X10^3/uL (0.83-4.51); Absolute Neutrophil Count 9.7 X10^3/uL (2.0-7.7); Basophil# 0.09 X10^3/uL; Basophil% 0.7 % (0-1); Eosinophil# 0.08 X10^3/uL; Eosinophils% 0.7 % (0-5); Hematocrit 33.4 % (40-54); Hemoglobin 12.1 g/dL (13.0-16.5); Lymphocyte # 1.52 X10^3/ul (0.83-4.51); Lymphocyte % 12.5 % (19-41); Mean Corp Hgb Conc 36.2 g/dL (32-36); Mean Corpuscular Hgb 38.3 pg (27.0-32.0); Mean Corpuscular Volume 105.7 fL (80-94); Mean Platelet Vol. 9.8 fl (6.2-12.0); Monocyte# 0.65 X10^3/uL; Monocyte% 5.4 % (0-10); NRBC Flagged by Analyzer 0 % (0-5); Neutrophil # 9.71 X10^3/uL (2.7-7.7); Neutrophil % 80.1 % (47-70); Platelet Count 357 K/mm3 (150-450); RBC Distribution Width CV 12.8 % (11.6-14.6); RBC Distribution Width SD 49.6 fl (35.1-43.9); Red Blood Count 3.16 M/mm3 (4.6-6.2); White Blood Count 12.1 K/mm3 (4.4-11.0)
[2022-05-29 04:14] LABS: Anion Gap 6 (5-15); BUN 12 mg/dL (7-18); BUN/Creat Ratio 20.1 RATIO (10-20); Calcium,Total 7.5 mg/dL (8.5-10.1); Chloride 95 mmol/L (98-107); EST Glomerular Filtration Rate 146 mL/min (>60); Est Glom Filt Rate - Afr Amer 176 mL/min (>60); Estimated Creatinine Clearance 140.11 ml/min; Glucose 127 mg/dL (74-106); Potassium 3.2 mmol/L (3.5-5.1); Sodium Level 134 mmol/L (136-145)
[2022-05-29] MEDS: LORazepam 2 MG/ML Syringe IV ×2 (04:47→22:43)
[2022-05-29] MEDS: Propofol 10MG/Ml 1,000 MG/100 ML Bottle 32.1 MG CONT INF ×2 (05:47→08:58)
[2022-05-29 10:31] LABS: CPK Total, Creatine Kinase 99 U/L (39-308); Triglycerides 1303 mg/dL
[2022-05-29] MEDS: Furosemide 40 MG/4 ML Vial IV ×2 (10:33→18:12)
[2022-05-29] MEDS: Enoxaparin 40 MG/0.4 ML Syringe SC (10:33)
[2022-05-29] MEDS: Chlorhexidine 15 ML PO ×2 (10:38→21:38)
[2022-05-29] MEDS: KCL 20MEQ in 0.9% NS 20 MEQ/1,000 ML IV.SOLN. 75 MEQ IV (11:29)
[2022-05-29] MEDS: Potassium Chloride Oral Soln 20 MEQ/15 ML UDC 40 MEQ NG (11:29)
[2022-05-29] MEDS: QUEtiapine 25 MG Tablet 50 MG PO ×2 (11:30→21:37)
[2022-05-29] MEDS: Vital AF 1.2 Cal Liquid 1,000 ML 65 ML GT (11:58)
--- NOTE | 2022-05-29 13:21 | PN.HOSP_ITS ---
Subjective Subjective Patient seen and examined. He is intubated and sedated. Patient was reintubated after being extubated yesterday. After extubation patient developed stridor.; he initially responded well to racemic epinephrine but stridor persisted so he had to be reintubated. He remains on the ventilator. Unable to do review of systems. Objective Data Objective Data Vital Signs: Vital Signs Temp Pulse Resp BP Pulse Ox O2 Del Method O2 Flow Rate 98.1 F 98 16 113/67 94 Mechanical Ventilator 15 05/29/22 12:00 05/29/22 13:00 05/29/22 13:00 05/29/22 13:00 05/29/22 13:00 05/29/22 13:00 05/28/22 07:10 FiO2 94 05/29/22 13:00 Oxygen Flow Rate (L/min) 15 Oxygen Delivery Method Mechanical Ventilator Weight: 226 lb 6.636 oz Body Mass Index (BMI) 31.5 Intake & Output: Intake and Output for Last 24 Hours 05/27/22 05/28/22 05/29/22 23:59 23:59 23:59 Intake Total 3164.65 / 3350.95 3132.51 / 3155.54 797.60 / 797.60 Output Total 5565 / 5715 3435 / 3435 310 / 310 Balance -2400.35 / -2364.05 -302.49 / -279.46 487.60 / 487.60 Lab / Micro Data Result Diagrams: 05/29/22 03:40 05/29/22 03:40 Labs: Laboratory Results - last 24 hr 05/29/22 03:40: WBC 12.1 H, RBC 3.16 L, Hgb 12.1 L, Hct 33.4 L, MCV 105.7 H, MCH 38.3 H, MCHC 36.2 H, RDW Std Deviation 49.6 H, RDW Coeff of Valerio 12.8, Plt Count 357, MPV 9.8, Immature Gran % (Auto) 0.600, Neut % (Auto) 80.1 H, Lymph % (Auto) 12.5 L, [place] % (Auto) 5.4, Eos % (Auto) 0.7, Baso % (Auto) 0.7, Absolute Neuts (auto) 9.7 H, Absolute Lymphs (auto) 1.52, Nucleated RBC % 0 12/16/22 03:40: Sodium 134 L, Potassium 3.2 L, Chloride 95 L, Carbon Dioxide 33.0 H, Anion Gap 6, BUN 12, Creatinine 0.60 L, Estim Creat Clear Calc 140.11, Est GFR (MDRD) Af Amer 176, Est GFR (MDRD) Non-Af 146, BUN/Creatinine Ratio 20.1 H, Glucose 127 H, Calcium 7.5 L 05/29/22 03:40: Total Creatine Kinase 99, Triglycerides 1303 H Micro: Microbiology 05/24/22 09:00 Blood Culture (Wb) - Anticubital Right Blood Culture - Final No growth in 5 days. 05/24/22 08:40 Blood Culture (Wb) - Other Blood Culture - Final No growth in 5 days. 05/24/22 09:20 Sputum, Induced/Lukens Gram Stain - Final 05/24/22 09:20 Sputum, Induced/Lukens Respiratory Culture - Final Escherichia coli 05/24/22 08:40 Urine Catheter - Kirk Urine Culture - Final Culture exhibits no growth. 05/19/22 19:00 Sputum, Tracheal Aspirate Gram Stain - Final 05/19/22 19:00 Sputum, Tracheal Aspirate Respiratory Culture - Final 05/19/22 09:10 Gastric Fluid/Contents Gastric Occult Blood - Final Occult Blood Positive ABG Data ABG results: ABG 05/28/22 13:29 Specimen Type ART Sample Site L Radial pH 7.45 Bicarbonate Actual 28.1 H Total CO2 29 Base Excess 4 H O2 Saturation 94 L O2 % 40 ABG pCO2 40.4 ABG pO2 67 L Jostin Test Positive Respiration Rate 14 O2 Delivery Device Adult Vent Vent Mode AC Tidal Volume 500 POC PEEP 5 Rhythm Strip Rhythm Strip: Sinus Rhythm Rate: 87 Ectopy: PVC(s) Physical Exam Const Constitutional Narrative: Patient intubated and sedated. RASs score remains -4 HEENT normocephalic, head/scalp atraumatic and moist oral mucous membranes Head and Scalp: normocephalic Mouth: oral and palatal mucosa normal Eyes PERRL and conjunctivae normal Neck no lymphadenopathy and supple Resp no retractions, no use of accessory muscles and clear to auscultation bilaterally Resp Narrative: diminished breath sounds bibasally, few crackles. Intubated and sedated. Auscultation: rhonchi; Negative for crackles or wheezes Cardio regular rate, regular rhythm, S1 normal heart sound, S2 normal heart sound, no murmurs, no rub, no gallops and no clicks GI normal to inspection, nondistended, normoactive bowel sounds, soft to palpation, non-tender and non-distended Extremity normal to inspection and no clubbing, cyanosis or edema Neuro Neuro Narrative: intubated, sedated, RASS score is -4 Assessment & Plan Assessment/Plan (1) Fever: (2) Acute hypercapnic respiratory failure: (3) Alcoholic hepatitis: (4) Alcohol withdrawal delirium: (5) Alcohol withdrawal seizure: QUALIFIERS: Complication of substance-induced condition: with delirium Qualified Code(s): F10.931 - Alcohol use, unspecified with withdrawal delirium; R56.9 - Unspecified convulsions PLAN: Plan #Acute hypoxic respiratory failure due to probable aspiration pneumonia * on IV zosyn; vancomycin discontinued * remains intubated and sedated; was extubated yesterday, but had stridor and wheezing. He received racemic epinephrine, but had to be reintubated * remains in positive balance by 7.439L * being diuresed with IV lasix * titrate oxygen to maintain sats >90% * breathing treatments with bronchodilators * #Acute delirium tremens due to acute alcohol withdrawal * remains intubated and sedated * on seroquel. * on propofol and phenobarbital taper; per critical care, being transitioned from propofol to precedex * on thiamine and folic acid * this has been complicated by seizures * #Hypokalemia: K is still 3.2. Will replace and trend #Acute blood loss anemia due to upper GI bleed * Hb has remained stable. * on PPI * #UGI bleed due to esophagitis * on PPI * #Rhabdomyolysis: resolved #CHronic thrombocytopenia: resolved. #EMMANUEL: resolved. DVT prophylaxis: lovenox Charges/Coding Visit Charges Inpatient E&M: 97528 Subs Hosp L3
--- NOTE | 2022-05-29 13:56 | PCM.PN.INT ---
Assessment & Plan Assessment/Plan (1) Acute hypercapnic respiratory failure: PLAN: Patient could not be extubated yesterday due to stridor and anxiety. Increase secretions may have contributed also. He is now a difficult extubation and we will need to await lessening of his tracheal laryngeal edema with a acceptable cuff leak test prior to reattempting extubation. Rest on ventilator for 1-2 additional days on IV steroids Reculture sputum Support on ventilator Bronchopulmonary hygiene, turn every 2 hours, head of bed up, ventilator bundle May consider broadening antibiotics if his secretions increase in quantity or purulence, or any resistant organism appears. He completed 7 days of antibiotics (2) Aspiration pneumonia: QUALIFIERS: Aspiration pneumonia type: due to gastric secretions Laterality: bilateral Lung location: lower lobe of lung Qualified Code(s): J69.0 - Pneumonitis due to inhalation of food and vomit PLAN: As above (3) Alcohol withdrawal delirium: PLAN: He is detox, he will be started back on his usual Seroquel and other psych meds. (4) On mechanically assisted ventilation: PLAN: As above (5) EMMANUEL (acute kidney injury): PLAN: Resolved Supplement electrolytes per ICU protocol Maintain adequate hydration with normal saline at 75 cc/h with 20 mill equivalents of K per liter (6) Alcohol dependence syndrome: PLAN: Resume usual psych meds (7) Pneumonia due to E. coli: PLAN: As above Other chronic problems are present that contribute to difficulty with overall care, including acute blood loss anemia due to upper GI bleed, grade D esophagitis, on high-dose PPI, rhabdomyolysis, thrombocytopenia (resolved) EMMANUEL (resolved, hyperbilirubinemia. MiraLAX as needed (8) Hypertriglyceridemia without hypercholesterolemia: PLAN: Check triglycerides in a.m. Check amylase and lipase the next blood draw Subjective Subjective Unable to give a history sedated on the ventilator 62-year-old man with alcohol withdrawal seizures, intubated for 10 days, difficulty in extubate due to severe anxiety.? Phenobarbital taper is complete, as needed Ativan, Precedex was not effective because of bradycardia.? He was extubated May 28 developed stridor and is now reintubated on Solu-Medrol awaiting decrease in airway swelling, and has worsened purulent secretions via his ET tube.? He is on propofol, fentanyl, Ativan. Objective Data Objective Data 62-year-old man with alcohol withdrawal seizures, intubated for 10 days, difficulty in extubate due to severe anxiety.? Sputum grew E. coli. Phenobarbital taper is complete, as needed Ativan, Precedex was not effective because of bradycardia.? He was extubated May 28 developed stridor and is now reintubated on Solu-Medrol awaiting decrease in airway swelling, and has worsened purulent secretions via his ET tube.? He is on propofol, fentanyl, Ativan. Vital Signs: Vital Signs Temp Pulse Resp BP Pulse Ox O2 Del Method O2 Flow Rate 98.1 F 98 16 113/67 94 Mechanical Ventilator 15 05/29/22 12:00 05/29/22 13:00 05/29/22 13:00 05/29/22 13:00 05/29/22 13:00 05/29/22 13:00 05/28/22 07:10 FiO2 94 05/29/22 13:00 Oxygen Flow Rate (L/min) 15 Oxygen Delivery Method Mechanical Ventilator Weight: 226 lb 6.636 oz Body Mass Index (BMI) 31.5 Intake & Output: Intake and Output for Last 24 Hours 05/27/22 05/28/22 05/29/22 23:59 23:59 23:59 Intake Total 3164.65 / 3350.95 3132.51 / 3155.54 797.60 / 797.60 Output Total 5565 / 5715 3435 / 3435 310 / 310 Balance -2400.35 / -2364.05 -302.49 / -279.46 487.60 / 487.60 Lab / Micro Data Attestation: I reviewed the patient's lab results. Lab results narrative: Vitals are stable, weight 226, BMI 30.7.? Labs show white count of 12 hemoglobin 12 MCV 105.7, normal white count with increased polys.? ABG yesterday 7.4 while on ventilator. Labs today with sodium 130 4K3.2 chloride 95 CO2 33 normal BUN/creatinine Meds include enoxaparin, chlorhexidine, fentanyl, propofol, he did not tolerate Precedex.? Is on furosemide 40 IV twice daily, for patent lorazepam 2 mg IV Q2 as needed, methylprednisolone 40 IV daily, Zofran, pantoprazole 80 mg IV every 12, Zosyn and Vanco.? Polyethylene glycol 17 g twice daily I's and O's are -1448 cc. Result Diagrams: 05/29/22 03:40 05/29/22 03:40 Labs: Laboratory Results - last 24 hr 05/29/22 03:40: WBC 12.1 H, RBC 3.16 L, Hgb 12.1 L, Hct 33.4 L, MCV 105.7 H, MCH 38.3 H, MCHC 36.2 H, RDW Std Deviation 49.6 H, RDW Coeff of Valerio 12.8, Plt Count 357, MPV 9.8, Immature Gran % (Auto) 0.600, Neut % (Auto) 80.1 H, Lymph % (Auto) 12.5 L, [place] % (Auto) 5.4, Eos % (Auto) 0.7, Baso % (Auto) 0.7, Absolute Neuts (auto) 9.7 H, Absolute Lymphs (auto) 1.52, Nucleated RBC % 0 05/29/22 03:40: Sodium 134 L, Potassium 3.2 L, Chloride 95 L, Carbon Dioxide 33.0 H, Anion Gap 6, BUN 12, Creatinine 0.60 L, Estim Creat Clear Calc 140.11, Est GFR (MDRD) Af Amer 176, Est GFR (MDRD) Non-Af 146, BUN/Creatinine Ratio 20.1 H, Glucose 127 H, Calcium 7.5 L 05/29/22 03:40: Total Creatine Kinase 99, Triglycerides 1303 H Micro: Microbiology 05/29/22 10:05 Sputum, Induced/Lukens Gram Stain - Final 05/24/22 09:00 Blood Culture (Wb) - Anticubital Right Blood Culture - Final No growth in 5 days. 05/24/22 08:40 Blood Culture (Wb) - Other Blood Culture - Final No growth in 5 days. 05/24/22 09:20 Sputum, Induced/Lukens Gram Stain - Final 05/24/22 09:20 Sputum, Induced/Lukens Respiratory Culture - Final Escherichia coli 05/24/22 08:40 Urine Catheter - Kirk Urine Culture - Final Culture exhibits no growth. 05/19/22 19:00 Sputum, Tracheal Aspirate Gram Stain - Final 05/19/22 19:00 Sputum, Tracheal Aspirate Respiratory Culture - Final 05/19/22 09:10 Gastric Fluid/Contents Gastric Occult Blood - Final Occult Blood Positive ABG Data ABG results: See above, review of yesterday's ABG while on ventilator Radiography Diagnostic Testing: Reviewed Rhythm Strip Rhythm Strip: Sinus Rhythm Rate: 87 Ectopy: PVC(s) Physical Exam Narrative Well-developed overweight man, sedated on mechanical ventilator no acute distress HEENT: Endotracheal tube in good position, moderately thick hopkins secretions suctioned during today's evaluation. 7.5 mm ID tube at 25 cm at the upper teeth. Neck is supple Chest has rhonchi bilaterally, hyperinflated, mild wheezing bilaterally in all lung bonilla. Heart normal S1-S2 with no murmurs rubs or gallops Abdomen is soft nontender positive bowel sounds, having bowel movements, MiraLAX nightly as needed evaluation is remarkable for a massive scrotal hernia with palpable loops of bowel no obstruction, no discoloration or skin breakdown. Neuro: Sedated for exam, incomplete Extremities no clubbing cyanosis or edema, warm and dry, subungual hematoma of left small toe, various scratch castle and abrasions which look like they predated hospitalization, no abrasions or erythema at restraint sites. Psych: Unable to assess, staff states patient is extremely anxious when sedation is lightened. Charges/Coding Procedures Hospitalists Procedures: 91535 Critial Care 1st Hr (Critical care time spent with patient at bedside, review of documentation, lab results, radiology and other test results, discussion with colleagues and ancillary staff, clinical management of patient, and updating family if applicable, was 60 minutes. This time does not include any procedures, )
--- NOTE | 2022-05-29 22:51 | NURSING ---
PRN Ativan given for agitation. Pt attempting to slide out of bed and pull against restraints. Verbal de-escalation ineffective. Pt's episodic agitation have made it difficult to wean sedation and pain control.
[2022-05-30] VITALS (35 sets, daily range): BP systolic 91–164; BP diastolic 51–98; PULSE 57–118; RESP 14–20; TEMP 36.7–37.7; O2SAT 92–99
[2022-05-30] MEDS: KCL 20MEQ in 0.9% NS 20 MEQ/1,000 ML IV.SOLN. 75 MEQ IV ×2 (00:14→13:01)
--- NOTE | 2022-05-30 02:30 | NURSING ---
Opted to not turn Q2 in attempts to wean sedation and reduce agitation. Pt currently on right side with pillows on all sides and resting comfortably. Will continue to monitor.
[2022-05-30] MEDS: 0.9% Saline Lock 10 ML Syringe IV (03:44)
[2022-05-30] MEDS: Vital AF 1.2 Cal Liquid 1,000 ML 65 ML GT ×2 (03:45→17:05)
[2022-05-30 04:13] LABS: Absolute Lymphocyte Count 1.63 X10^3/uL (0.83-4.51); Absolute Neutrophil Count 5.1 X10^3/uL (2.0-7.7); Basophil# 0.06 X10^3/uL; Basophil% 0.8 % (0-1); Eosinophil# 0.12 X10^3/uL; Eosinophils% 1.6 % (0-5); Hematocrit 30.8 % (40-54); Hemoglobin 10.2 g/dL (13.0-16.5); Lymphocyte # 1.63 X10^3/ul (0.83-4.51); Lymphocyte % 21.8 % (19-41); Mean Corp Hgb Conc 33.1 g/dL (32-36); Mean Corpuscular Volume 108.8 fL (80-94); Mean Platelet Vol. 9.6 fl (6.2-12.0); Monocyte% 6.7 % (0-10); NRBC Flagged by Analyzer 0 % (0-5); Neutrophil # 5.12 X10^3/uL (2.7-7.7); Neutrophil % 68.6 % (47-70); Platelet Count 338 K/mm3 (150-450); RBC Distribution Width CV 12.8 % (11.6-14.6); RBC Distribution Width SD 51.4 fl (35.1-43.9); Red Blood Count 2.83 M/mm3 (4.6-6.2); White Blood Count 7.5 K/mm3 (4.4-11.0)
[2022-05-30 04:27] LABS: Anion Gap 4 (5-15); BUN 17 mg/dL (7-18); BUN/Creat Ratio 33.9 RATIO (10-20); Calcium,Total 8.4 mg/dL (8.5-10.1); Chloride 105 mmol/L (98-107); EST Glomerular Filtration Rate 179 mL/min (>60); Est Glom Filt Rate - Afr Amer 216 mL/min (>60); Estimated Creatinine Clearance 168.13 ml/min; Glucose 114 mg/dL (74-106); Potassium 2.9 mmol/L (3.5-5.1); Sodium Level 140 mmol/L (136-145); Triglycerides 186 mg/dL
[2022-05-30] MEDS: Enoxaparin 40 MG/0.4 ML Syringe SC (09:08)
[2022-05-30] MEDS: QUEtiapine 25 MG Tablet 50 MG PO (09:08)
[2022-05-30] MEDS: Furosemide 40 MG/4 ML Vial IV ×2 (09:08→17:05)
[2022-05-30] MEDS: Chlorhexidine 15 ML PO ×2 (09:08→21:12)
[2022-05-30] MEDS: LORazepam 2 MG/ML Syringe IV ×2 (09:12→18:45)
--- NOTE | 2022-05-30 09:46 | PN.HOSP_ITS ---
Subjective Subjective Patient seen and examined. He remains intubated and sedated. His RASS is 0 today. Objective Data Objective Data Vital Signs: Vital Signs Temp Pulse Resp BP Pulse Ox O2 Del Method O2 Flow Rate 99.5 F H 80 14 110/64 94 Mechanical Ventilator 15 05/30/22 08:00 05/30/22 08:00 05/30/22 08:00 05/30/22 08:00 05/30/22 08:00 05/30/22 08:00 05/28/22 07:10 FiO2 30 05/30/22 08:00 Oxygen Flow Rate (L/min) 15 Oxygen Delivery Method Mechanical Ventilator Weight: 229 lb 4.492 oz Body Mass Index (BMI) 31.5 Intake & Output: Intake and Output for Last 24 Hours 05/28/22 05/29/22 05/30/22 23:59 23:59 23:59 Intake Total 3132.51 / 3155.54 1389.90 / 1566.60 2911.15 / 2911.15 Output Total 3435 / 3435 1909 425 / 425 Balance -302.49 / -279.46 -520.10 / -443.40 2486.15 / 2486.15 Lab / Micro Data Result Diagrams: 05/30/22 04:00 05/30/22 04:00 Labs: Laboratory Results - last 24 hr 05/29/22 03:40: Total Creatine Kinase 99, Triglycerides 1303 H 05/30/22 04:00: WBC 7.5, RBC 2.83 L, Hgb 10.2 L, Hct 30.8 L, MCV 108.8 H, MCH 36.0 H, MCHC 33.1 D, RDW Std Deviation 51.4 H, RDW Coeff of Valerio 12.8, Plt Count 338, MPV 9.6, Immature Gran % (Auto) 0.500, Neut % (Auto) 68.6, Lymph % (Auto) 21.8, [place] % (Auto) 6.7, Eos % (Auto) 1.6, Baso % (Auto) 0.8, Absolute Neuts (auto) 5.1, Absolute Lymphs (auto) 1.63, Nucleated RBC % 0 05/30/22 04:00: Sodium 140, Potassium 2.9 L, Chloride 105, Carbon Dioxide 31.0, Anion Gap 4 L, BUN 17, Creatinine 0.50 L, Estim Creat Clear Calc 168.13, Est GFR (MDRD) Af Amer 216, Est GFR (MDRD) Non-Af 179, BUN/Creatinine Ratio 33.9 H, Glucose 114 H, Calcium 8.4 L, Triglycerides 186 Micro: Microbiology 05/29/22 10:05 Sputum, Induced/Lukens Gram Stain - Final 05/24/22 09:00 Blood Culture (Wb) - Anticubital Right Blood Culture - Final No growth in 5 days. 05/24/22 08:40 Blood Culture (Wb) - Other Blood Culture - Final No growth in 5 days. 05/24/22 09:20 Sputum, Induced/Lukens Gram Stain - Final 05/24/22 09:20 Sputum, Induced/Lukens Respiratory Culture - Final Escherichia coli 05/24/22 08:40 Urine Catheter - Kirk Urine Culture - Final Culture exhibits no growth. 05/19/22 19:00 Sputum, Tracheal Aspirate Gram Stain - Final 05/19/22 19:00 Sputum, Tracheal Aspirate Respiratory Culture - Final 05/19/22 09:10 Gastric Fluid/Contents Gastric Occult Blood - Final Occult Blood Positive Rhythm Strip Rhythm Strip: Sinus Rhythm Rate: 87 Ectopy: PVC(s) Physical Exam Const Constitutional Narrative: Patient intubated and sedated. RASs score remains 0 today; lying quietly in bed with his eyes open HEENT normocephalic, head/scalp atraumatic and moist oral mucous membranes Head and Scalp: normocephalic Mouth: oral and palatal mucosa normal Eyes PERRL and conjunctivae normal Neck no lymphadenopathy and supple Resp no retractions, no use of accessory muscles and clear to auscultation bilaterally Resp Narrative: diminished breath sounds bibasally, few crackles. Intubated and sedated. Auscultation: rhonchi; Negative for crackles or wheezes Cardio regular rate, regular rhythm, S1 normal heart sound, S2 normal heart sound, no murmurs, no rub, no gallops and no clicks GI normal to inspection, nondistended, normoactive bowel sounds, soft to palpation, non-tender and non-distended Extremity normal to inspection and no clubbing, cyanosis or edema Neuro Neuro Narrative: intubated, sedated, RASS score is 0 Assessment & Plan Assessment/Plan (1) Fever: (2) Acute hypercapnic respiratory failure: (3) Alcoholic hepatitis: (4) Alcohol withdrawal delirium: (5) Alcohol withdrawal seizure: QUALIFIERS: Complication of substance-induced condition: with delirium Qualified Code(s): F10.931 - Alcohol use, unspecified with withdrawal delirium; R56.9 - Unspecified convulsions PLAN: Plan #Acute hypoxic respiratory failure due to probable aspiration pneumonia * remains on IV zosyn; vancomycin discontinued * remains intubated and sedated; was extubated, but had stridor and wheezing. He received racemic epinephrine, but had to be reintubated * remains in positive balance by 8.917L * being diuresed with IV lasix * titrate oxygen to maintain sats >90% * breathing treatments with bronchodilators * #Acute delirium tremens due to acute alcohol withdrawal * remains intubated and sedated; RASS score is 0 * on seroquel. * on propofol and phenobarbital taper; per critical care, being transitioned from propofol to precedex * on thiamine and folic acid * this has been complicated by seizures * #Hypokalemia: K is still 2.9. Will replace and trend #Acute blood loss anemia due to upper GI bleed * Hb has remained stable. * on PPI * #UGI bleed due to esophagitis * on PPI * #Rhabdomyolysis: resolved #CHronic thrombocytopenia: resolved. #EMMANUEL: resolved. DVT prophylaxis: lovenox Charges/Coding Visit Charges Inpatient E&M: 64518 [facility] Hosp L3
[2022-05-30] MEDS: Potassium Chloride 10mEq/100mL 10 MEQ/100 ML IV.SOLN. 100 MEQ IV BOLUS ×4 (10:43→14:06)
--- NOTE | 2022-05-30 12:48 | PCM.PN.INT ---
Assessment & Plan Assessment/Plan (1) Acute hypercapnic respiratory failure: PLAN: Patient could not be extubated yesterday due to stridor and anxiety. Increase secretions may have contributed also. He is now a difficult extubation and we will need to await lessening of his tracheal laryngeal edema with a acceptable cuff leak test prior to reattempting extubation. Rest on ventilator for 1-2 additional days on IV steroids The etiology of stridor is not clear ? secretions ? edema since I did not see mention of edema during intubation Reculture sputum Support on ventilator Bronchopulmonary hygiene, turn every 2 hours, head of bed up, ventilator bundle May consider broadening antibiotics if his secretions increase in quantity or purulence, or any resistant organism appears. He completed 7 days of antibiotics Options moving forward on wednesday will be: 1. controlled extubation with ENT at bedside 2. Consideration for tracheostomy (early) to avoid deconditioning (2) Aspiration pneumonia: QUALIFIERS: Aspiration pneumonia type: due to gastric secretions Laterality: bilateral Lung location: lower lobe of lung Qualified Code(s): J69.0 - Pneumonitis due to inhalation of food and vomit PLAN: As above (3) Alcohol withdrawal delirium: PLAN: He is detox, he will be started back on his usual Seroquel and other psych meds. (4) On mechanically assisted ventilation: PLAN: As above (5) EMMANUEL (acute kidney injury): PLAN: Resolved Supplement electrolytes per ICU protocol Maintain adequate hydration with normal saline at 75 cc/h with 20 mill equivalents of K per liter (6) Alcohol dependence syndrome: PLAN: Resume usual psych meds (7) Pneumonia due to E. coli: PLAN: As above Other chronic problems are present that contribute to difficulty with overall care, including acute blood loss anemia due to upper GI bleed, grade D esophagitis, on high-dose PPI, rhabdomyolysis, thrombocytopenia (resolved) EMMANUEL (resolved, hyperbilirubinemia. MiraLAX as needed Subjective Subjective Unable to give a history sedated on the ventilator 62-year-old man with alcohol withdrawal seizures, intubated for 10 days, difficulty in extubate due to severe anxiety.? Phenobarbital taper is complete, as needed Ativan, Precedex was not effective because of bradycardia.? He was extubated May 28 developed stridor and is now reintubated on Solu-Medrol awaiting decrease in airway swelling, and has worsened purulent secretions via his ET tube.? He is on propofol, fentanyl, Ativan. Objective Data Objective Data Vital Signs: Vital Signs Temp Pulse Resp BP Pulse Ox O2 Del Method O2 Flow Rate 37.7 C H 99 14 115/62 96 Mechanical Ventilator 15 05/30/22 11:00 05/30/22 12:17 05/30/22 12:17 05/30/22 11:00 05/30/22 12:17 05/30/22 11:00 05/28/22 07:10 FiO2 30 05/30/22 12:17 Oxygen Flow Rate (L/min) 15 Oxygen Delivery Method Mechanical Ventilator Weight: 104 kg Body Mass Index (BMI) 31.5 Intake & Output: Intake and Output for Last 24 Hours 05/28/22 05/29/22 05/30/22 23:59 23:59 23:59 Intake Total 3132.51 / 3155.54 1389.90 / 1566.60 3225.15 / 3225.15 Output Total 3435 / 3435 1909 / 2009 1825 / 1825 Balance -302.49 / -279.46 -520.10 / -443.40 1400.15 / 1400.15 Lab / Micro Data Result Diagrams: 05/30/22 04:00 05/30/22 04:00 Labs: Laboratory Results - last 24 hr 05/30/22 04:00: WBC 7.5, RBC 2.83 L, Hgb 10.2 L, Hct 30.8 L, MCV 108.8 H, MCH 36.0 H, MCHC 33.1 D, RDW Std Deviation 51.4 H, RDW Coeff of Valerio 12.8, Plt Count 338, MPV 9.6, Immature Gran % (Auto) 0.500, Neut % (Auto) 68.6, Lymph % (Auto) 21.8, [place] % (Auto) 6.7, Eos % (Auto) 1.6, Baso % (Auto) 0.8, Absolute Neuts (auto) 5.1, Absolute Lymphs (auto) 1.63, Nucleated RBC % 0 05/30/22 04:00: Sodium 140, Potassium 2.9 L, Chloride 105, Carbon Dioxide 31.0, Anion Gap 4 L, BUN 17, Creatinine 0.50 L, Estim Creat Clear Calc 168.13, Est GFR (MDRD) Af Amer 216, Est GFR (MDRD) Non-Af 179, BUN/Creatinine Ratio 33.9 H, Glucose 114 H, Calcium 8.4 L, Triglycerides 186 Micro: Microbiology 05/29/22 10:05 Sputum, Induced/Lukens Gram Stain - Final 05/24/22 09:00 Blood Culture (Wb) - Anticubital Right Blood Culture - Final No growth in 5 days. 05/24/22 08:40 Blood Culture (Wb) - Other Blood Culture - Final No growth in 5 days. 05/24/22 09:20 Sputum, Induced/Lukens Gram Stain - Final 05/24/22 09:20 Sputum, Induced/Lukens Respiratory Culture - Final Escherichia coli 05/24/22 08:40 Urine Catheter - Kirk Urine Culture - Final Culture exhibits no growth. 05/19/22 19:00 Sputum, Tracheal Aspirate Gram Stain - Final 05/19/22 19:00 Sputum, Tracheal Aspirate Respiratory Culture - Final 05/19/22 09:10 Gastric Fluid/Contents Gastric Occult Blood - Final Occult Blood Positive Rhythm Strip Rhythm Strip: Sinus Rhythm Rate: 87 Ectopy: PVC(s) Physical Exam Narrative Well-developed overweight man, sedated on mechanical ventilator no acute distress HEENT: Endotracheal tube in good position, moderately thick hopkins secretions suctioned during today's evaluation. 7.5 mm ID tube at 25 cm at the upper teeth. Neck is supple Chest has rhonchi bilaterally, hyperinflated, mild wheezing bilaterally in all lung bonilla. Heart normal S1-S2 with no murmurs rubs or gallops Abdomen is soft nontender positive bowel sounds, having bowel movements, MiraLAX nightly as needed evaluation is remarkable for a massive scrotal hernia with palpable loops of bowel no obstruction, no discoloration or skin breakdown. Neuro: Sedated for exam, incomplete Extremities no clubbing cyanosis or edema, warm and dry, subungual hematoma of left small toe, various scratch castle and abrasions which look like they predated hospitalization, no abrasions or erythema at restraint sites. Psych: Unable to assess, staff states patient is extremely anxious when sedation is lightened. Charges/Coding Addendum Addendum: Critical care time spent = 50 minutes Billing code: [id number]
[2022-05-30] MEDS: QUEtiapine 100 MG Tablet GT (21:10)
[2022-05-31] VITALS (34 sets, daily range): BP systolic 86–146; BP diastolic 52–112; PULSE 48–119; RESP 13–31; TEMP 36.3–37.9; O2SAT 94–100
[2022-05-31] MEDS: 0.9% Saline Lock 10 ML Syringe IV ×2 (00:57→02:22)
[2022-05-31] MEDS: KCL 20MEQ in 0.9% NS 20 MEQ/1,000 ML IV.SOLN. 75 MEQ IV ×2 (02:22→15:22)
[2022-05-31] MEDS: LORazepam 2 MG/ML Syringe IV ×3 (03:15→11:06)
[2022-05-31 04:20] LABS: Absolute Lymphocyte Count 1.65 X10^3/uL (0.83-4.51); Absolute Neutrophil Count 5.9 X10^3/uL (2.0-7.7); Basophil% 1.2 % (0-1); Eosinophil# 0.16 X10^3/uL; Eosinophils% 1.9 % (0-5); Hematocrit 31.8 % (40-54); Hemoglobin 10.7 g/dL (13.0-16.5); Lymphocyte # 1.65 X10^3/ul (0.83-4.51); Lymphocyte % 19.9 % (19-41); Mean Corp Hgb Conc 33.6 g/dL (32-36); Mean Corpuscular Hgb 35.9 pg (27.0-32.0); Mean Corpuscular Volume 106.7 fL (80-94); Mean Platelet Vol. 9.7 fl (6.2-12.0); Monocyte# 0.46 X10^3/uL; Monocyte% 5.5 % (0-10); NRBC Flagged by Analyzer 0 % (0-5); Neutrophil # 5.88 X10^3/uL (2.7-7.7); Neutrophil % 70.8 % (47-70); Platelet Count 353 K/mm3 (150-450); RBC Distribution Width CV 12.5 % (11.6-14.6); RBC Distribution Width SD 49.2 fl (35.1-43.9); Red Blood Count 2.98 M/mm3 (4.6-6.2); White Blood Count 8.3 K/mm3 (4.4-11.0)
[2022-05-31 04:36] LABS: Anion Gap 6 (5-15); BUN 14 mg/dL (7-18); BUN/Creat Ratio 29.1 RATIO (10-20); Calcium,Total 8.7 mg/dL (8.5-10.1); Chloride 104 mmol/L (98-107); Creatinine, Serum 0.48 mg/dL (0.70-1.30); EST Glomerular Filtration Rate 187 mL/min (>60); Est Glom Filt Rate - Afr Amer 227 mL/min (>60); Estimated Creatinine Clearance 175.14 ml/min; Glucose 120 mg/dL (74-106); Potassium 3.2 mmol/L (3.5-5.1); Sodium Level 138 mmol/L (136-145)
--- NOTE | 2022-05-31 05:30 | NURSING ---
pt w/increasing agitation. unable to increase precedex d/t continued intermittant bradycardia into 30s. (see monitor for recorded alarms). Pt sat side of bed for 5min w/assist RT, 2 RNs and 1 ZIGZAGGER. tolerated well w/exception of continually pushing back against staff w/good and equal strength throughout. pt freq grabs for OET. returned to supine position. offered bedpan and pt was placed on. He immediately pushed bedpan out from under himself. dose ativan given. returned to supine positions HOB elevated 30. restrained. pt cont to intermittantly try to get OOB, or reach for the OET despite continued redirection, explaination of his circumstance. He is able to understand and comply with complex directions.
[2022-05-31] MEDS: TITRATION PARAMETER CHANGE 1 EACH IV (08:04)
[2022-05-31] MEDS: Chlorhexidine 15 ML PO ×2 (08:04→21:25)
[2022-05-31] MEDS: Vital AF 1.2 Cal Liquid 1,000 ML 65 ML GT ×2 (08:04→23:33)
[2022-05-31] MEDS: Potassium Chloride 10mEq/100mL 10 MEQ/100 ML IV.SOLN. 100 MEQ IV BOLUS ×4 (08:08→13:12)
[2022-05-31] MEDS: QUEtiapine 100 MG Tablet GT ×2 (08:41→21:25)
[2022-05-31] MEDS: Furosemide 40 MG/4 ML Vial IV ×2 (09:28→17:23)
[2022-05-31] MEDS: Enoxaparin 40 MG/0.4 ML Syringe SC (09:28)
--- NOTE | 2022-05-31 10:19 | PN.HOSP_ITS ---
Subjective Subjective Patient seen and examined. He remains intubated. Patient is on precedex drip; he was noted to be having some bradycardia which was thought to be due to precedex. He is very agitated, with RASS score of +4; he was trying to climb out of bed during my review; he is on 4 point soft restraints. He is tachycardic and ta chypneic. Objective Data Objective Data Vital Signs: Vital Signs Temp Pulse Resp BP Pulse Ox O2 Del Method O2 Flow Rate 100.2 F H 119 H 25 H 143/108 H 97 Mechanical Ventilator 15 05/31/22 08:00 05/31/22 09:00 05/31/22 09:00 05/31/22 09:00 05/31/22 09:00 05/31/22 09:00 05/28/22 07:10 FiO2 40 05/31/22 09:00 Oxygen Flow Rate (L/min) 15 Oxygen Delivery Method Mechanical Ventilator Weight: 228 lb 9.91 oz Body Mass Index (BMI) 31.5 Intake & Output: Intake and Output for Last 24 Hours 05/29/22 05/30/22 05/31/22 23:59 23:59 23:59 Intake Total 1389.90 / 1566.60 7528.16 / 7961.41 2388.83 / 2388.83 Output Total 1909 3325 / 3325 300 / 300 Balance -520.10 / -443.40 4203.16 / 4636.41 2088.83 / 2088.83 Lab / Micro Data Result Diagrams: 05/31/22 04:10 05/31/22 04:10 Labs: Laboratory Results - last 24 hr 05/31/22 04:10: WBC 8.3, RBC 2.98 L, Hgb 10.7 L, Hct 31.8 L, MCV 106.7 H, MCH 35.9 H, MCHC 33.6, RDW Std Deviation 49.2 H, RDW Coeff of Valerio 12.5, Plt Count 353, MPV 9.7, Immature Gran % (Auto) 0.700, Neut % (Auto) 70.8 H, Lymph % (Auto) 19.9, [place] % (Auto) 5.5, Eos % (Auto) 1.9, Baso % (Auto) 1.2 H, Absolute Neuts (auto) 5.9, Absolute Lymphs (auto) 1.65, Nucleated RBC % 0 05/31/22 04:10: Sodium 138, Potassium 3.2 L, Chloride 104, Carbon Dioxide 28.0, Anion Gap 6, BUN 14, Creatinine 0.48 L, Estim Creat Clear Calc 175.14, Est GFR (MDRD) Af Amer 227, Est GFR (MDRD) Non-Af 187, BUN/Creatinine Ratio 29.1 H, Glucose 120 H, Calcium 8.7 Micro: Microbiology 05/29/22 10:05 Sputum, Induced/Lukens Gram Stain - Final 05/29/22 10:05 Sputum, Induced/Lukens Respiratory Culture - Preliminary Presumptive C albicans 05/24/22 09:00 Blood Culture (Wb) - Anticubital Right Blood Culture - Final No growth in 5 days. 05/24/22 08:40 Blood Culture (Wb) - Other Blood Culture - Final No growth in 5 days. 05/24/22 09:20 Sputum, Induced/Lukens Gram Stain - Final 05/24/22 09:20 Sputum, Induced/Lukens Respiratory Culture - Final Escherichia coli 05/24/22 08:40 Urine Catheter - Kirk Urine Culture - Final Culture exhibits no growth. 05/19/22 19:00 Sputum, Tracheal Aspirate Gram Stain - Final 05/19/22 19:00 Sputum, Tracheal Aspirate Respiratory Culture - Final 05/19/22 09:10 Gastric Fluid/Contents Gastric Occult Blood - Final Occult Blood Positive Rhythm Strip Rhythm Strip: Sinus Rhythm Rate: 87 Ectopy: PVC(s) Physical Exam Const Constitutional Narrative: Patient intubated and sedated. RASs score is +4 today; patient agitated, in 4 point restraints, trying to climb out of bed HEENT normocephalic, head/scalp atraumatic and moist oral mucous membranes Head and Scalp: normocephalic Mouth: oral and palatal mucosa normal Eyes PERRL and conjunctivae normal Neck no lymphadenopathy and supple Resp no retractions, no use of accessory muscles and clear to auscultation bilaterally Resp Narrative: diminished breath sounds bibasally, few crackles. Intubated and sedated. Auscultation: rhonchi; Negative for crackles or wheezes Cardio regular rate, regular rhythm, S1 normal heart sound, S2 normal heart sound, no murmurs, no rub, no gallops and no clicks GI normal to inspection, nondistended, normoactive bowel sounds, soft to palpation, non-tender and non-distended Extremity normal to inspection and no clubbing, cyanosis or edema Extremity Narrative: in 4 point restraints Neuro Neuro Narrative: intubated, sedated, RASS score is +4 Psych Psych Narrative: agitated Assessment & Plan Assessment/Plan (1) Fever: (2) Acute hypercapnic respiratory failure: (3) Alcoholic hepatitis: (4) Alcohol withdrawal delirium: (5) Alcohol withdrawal seizure: QUALIFIERS: Complication of substance-induced condition: with delirium Qualified Code(s): F10.931 - Alcohol use, unspecified with withdrawal delirium; R56.9 - Unspecified convulsions PLAN: Plan #Acute hypoxic respiratory failure due to probable aspiration pneumonia * remains on IV zosyn; vancomycin discontinued * remains intubated and sedated; was extubated, but had stridor and wheezing. He received racemic epinephrine, but had to be reintubated * remains in positive balance by 12L * being diuresed with IV lasix * titrate oxygen to maintain sats >90% * breathing treatments with bronchodilators * #Acute delirium tremens due to acute alcohol withdrawal * remains intubated and sedated; RASS score is +4 todau * on seroquel. * on precedex drip; also in 4 point restraints * on thiamine and folic acid * this has been complicated by seizures * #Hypokalemia: K is 3.2 today. Will replace and trend #Acute blood loss anemia due to upper GI bleed * Hb has remained stable. * on PPI * #UGI bleed due to esophagitis * on PPI * #Rhabdomyolysis: resolved #CHronic thrombocytopenia: resolved. #EMMANUEL: resolved. DVT prophylaxis: lovenox Charges/Coding Visit Charges Inpatient E&M: 04396 Subs Hosp L3
--- NOTE | 2022-05-31 11:26 | EKG12_ITS ---
Test Reason : QTC INTERVAL Blood Pressure : / mmHG Vent. Rate : 082 BPM Atrial Rate : 082 BPM P-R Int : 194 ms QRS Dur : 090 ms QT Int : 378 ms P-R-T Axes : 039 012 003 degrees QTc Int : 441 ms Normal sinus rhythm Normal ECG Confirmed by CARI FLOYD, MATEO ([id number]), writer editor RADHA KIM ([id number]) on 06/03/2022 11:03:22 AM Referred By: Confirmed By:MATEO ALCALA MD
[2022-05-31 12:06] LABS: CPK Total, Creatine Kinase 33 U/L (39-308); Triglycerides 209 mg/dL
[2022-05-31] MEDS: Propofol 10MG/Ml 1,000 MG/100 ML Bottle 12.4 MG CONT INF ×2 (12:10→17:22)
--- NOTE | 2022-05-31 12:27 | PN.CC_ITS ---
Assessment & Plan Assessment/Plan (1) Acute hypercapnic respiratory failure: PLAN: Patient could not remain extubated due to stridor and anxiety. Increase secretions may have contributed also. He is now a difficult extubation and we will need to await lessening of his tracheal laryngeal edema with a acceptable cuff leak test prior to reattempting extubation. Rest on ventilator for 1-2 additional days on IV steroids The etiology of stridor is not clear ? secretions ? edema since I did not see mention of edema during intubation Reculture sputum Support on ventilator Bronchopulmonary hygiene, turn every 2 hours, head of bed up, ventilator bundle May consider broadening antibiotics if his secretions increase in quantity or purulence, or any resistant organism appears. He completed 7 days of antibiotics Options moving forward on wednesday will be: 1. controlled extubation with ENT at bedside 2. Consideration for tracheostomy (early) to avoid deconditioning (2) Aspiration pneumonia: QUALIFIERS: Aspiration pneumonia type: due to gastric secretions Laterality: bilateral Lung location: lower lobe of lung Qualified Code(s): J69.0 - Pneumonitis due to inhalation of food and vomit PLAN: As above (3) Alcohol withdrawal delirium: PLAN: He is detox, he will be started back on his usual Seroquel and other psych meds. Also sedation has been changed to add back propofol, precedex and fentanyl (4) On mechanically assisted ventilation: PLAN: As above (5) EMMANUEL (acute kidney injury): PLAN: Resolved Supplement electrolytes per ICU protocol Maintain adequate hydration with normal saline at 75 cc/h with 20 mill equivalents of K per liter (6) Alcohol dependence syndrome: PLAN: Resume usual psych meds (7) Pneumonia due to E. coli: PLAN: As above Other chronic problems are present that contribute to difficulty with overall care, including acute blood loss anemia due to upper GI bleed, grade D esophagitis, on high-dose PPI, rhabdomyolysis, thrombocytopenia (resolved) EMMANUEL (resolved, hyperbilirubinemia. MiraLAX as needed Subjective Subjective Unable to give a history sedated on the ventilator 62-year-old man with alcohol withdrawal seizures, intubated for 10 days, difficulty in extubate due to severe anxiety.? Phenobarbital taper is complete, as needed Ativan, Precedex was not effective because of bradycardia.? He was extubated May 28 developed stridor and is now reintubated on Solu-Medrol awaiting decrease in airway swelling, and has worsened purulent secretions via his ET tube.? He is on propofol, fentanyl, Ativan. Objective Data Objective Data Vital Signs: Vital Signs Temp Pulse Resp BP Pulse Ox O2 Del Method O2 Flow Rate 37.9 C H 72 17 123/70 H 94 Mechanical Ventilator 15 05/31/22 08:00 05/31/22 11:25 05/31/22 11:25 05/31/22 11:00 05/31/22 11:25 05/31/22 11:00 05/28/22 07:10 FiO2 30 05/31/22 11:25 Oxygen Flow Rate (L/min) 15 Oxygen Delivery Method Mechanical Ventilator Weight: 103.7 kg Body Mass Index (BMI) 31.5 Intake & Output: Intake and Output for Last 24 Hours 05/29/22 05/30/22 05/31/22 23:59 23:59 23:59 Intake Total 1389.90 / 1566.60 7528.16 / 7961.41 2635.00 / 2635.00 Output Total 1909 3325 / 3325 1400 / 1400 Balance -520.10 / -443.40 4203.16 / 4636.41 1235.00 / 1235.00 Lab / Micro Data Result Diagrams: 05/31/22 04:10 05/31/22 04:10 Labs: Laboratory Results - last 24 hr 05/31/22 04:10: WBC 8.3, RBC 2.98 L, Hgb 10.7 L, Hct 31.8 L, MCV 106.7 H, MCH 35.9 H, MCHC 33.6, RDW Std Deviation 49.2 H, RDW Coeff of Valerio 12.5, Plt Count 353, MPV 9.7, Immature Gran % (Auto) 0.700, Neut % (Auto) 70.8 H, Lymph % (Auto) 19.9, [place] % (Auto) 5.5, Eos % (Auto) 1.9, Baso % (Auto) 1.2 H, Absolute Neuts (auto) 5.9, Absolute Lymphs (auto) 1.65, Nucleated RBC % 0 05/31/22 04:10: Sodium 138, Potassium 3.2 L, Chloride 104, Carbon Dioxide 28.0, Anion Gap 6, BUN 14, Creatinine 0.48 L, Estim Creat Clear Calc 175.14, Est GFR ( MDRD) Af Amer 227, Est GFR (MDRD) Non-Af 187, BUN/Creatinine Ratio 29.1 H, Glucose 120 H, Calcium 8.7 05/31/22 11:40: Total Creatine Kinase 33 L, Triglycerides 209 H Micro: Microbiology 05/29/22 10:05 Sputum, Induced/Lukens Gram Stain - Final 05/29/22 10:05 Sputum, Induced/Lukens Respiratory Culture - Preliminary Presumptive C albicans 05/24/22 09:00 Blood Culture (Wb) - Anticubital Right Blood Culture - Final No growth in 5 days. 05/24/22 08:40 Blood Culture (Wb) - Other Blood Culture - Final No growth in 5 days. 05/24/22 09:20 Sputum, Induced/Lukens Gram Stain - Final 05/24/22 09:20 Sputum, Induced/Lukens Respiratory Culture - Final Escherichia coli 05/24/22 08:40 Urine Catheter - Kirk Urine Culture - Final Culture exhibits no growth. 05/19/22 19:00 Sputum, Tracheal Aspirate Gram Stain - Final 05/19/22 19:00 Sputum, Tracheal Aspirate Respiratory Culture - Final 05/19/22 09:10 Gastric Fluid/Contents Gastric Occult Blood - Final Occult Blood Positive Rhythm Strip Rhythm Strip: Sinus Rhythm Rate: 87 Ectopy: PVC(s) Physical Exam Narrative Well-developed overweight man, sedated on mechanical ventilator no acute distress HEENT: Endotracheal tube in good position, moderately thick hopkins secretions suctioned during today's evaluation. 7.5 mm ID tube at 25 cm at the upper teeth. Neck is supple Chest has rhonchi bilaterally, hyperinflated, mild wheezing bilaterally in all lung bonilla. Heart normal S1-S2 with no murmurs rubs or gallops Abdomen is soft nontender positive bowel sounds, having bowel movements, MiraLAX nightly as needed evaluation is remarkable for a massive scrotal hernia with palpable loops of bowel no obstruction, no discoloration or skin breakdown. Neuro: Sedated for exam, incomplete Extremities no clubbing cyanosis or edema, warm and dry, subungual hematoma of left small toe, various scratch castle and abrasions which look like they predated hospitalization, no abrasions or erythema at restraint sites. Psych: Unable to assess, staff states patient is extremely anxious when sedation is lightened. Charges/Coding Addendum Addendum: Critical care time = 51 minutes Billing code = 01011
--- NOTE | 2022-05-31 21:00 | NURSING ---
pt bed alarm going off, pt founds sideways in the bed, feet off the bed while restrained with all meds still running. He was attempting to talk around the OET, was red in the face and sweating. Repositioned supine, HOB elevated 30. meds adjusted
[2022-05-31] MEDS: Propofol 10MG/Ml 1,000 MG/100 ML Bottle 18.7 MG CONT INF (22:33)
[2022-05-31] MEDS: Polyethylene Glycol 3350 17 GM PACKET GT (23:38)
[2022-06-01] VITALS (35 sets, daily range): BP systolic 105–130; BP diastolic 57–85; PULSE 49–102; RESP 14–24; TEMP 36.1–37.2; O2SAT 90–97
[2022-06-01] MEDS: Propofol 10MG/Ml 1,000 MG/100 ML Bottle 24.9 MG CONT INF ×2 (01:51→05:09)
[2022-06-01] MEDS: 0.9% Saline Lock 10 ML Syringe IV ×2 (03:53→05:12)
[2022-06-01 04:33] LABS: Absolute Lymphocyte Count 1.87 X10^3/uL (0.83-4.51); Absolute Neutrophil Count 6.2 X10^3/uL (2.0-7.7); Basophil# 0.11 X10^3/uL; Basophil% 1.2 % (0-1); Eosinophil# 0.21 X10^3/uL; Eosinophils% 2.3 % (0-5); Hematocrit 32.2 % (40-54); Hemoglobin 11.2 g/dL (13.0-16.5); Lymphocyte # 1.87 X10^3/ul (0.83-4.51); Lymphocyte % 20.8 % (19-41); Mean Corp Hgb Conc 34.8 g/dL (32-36); Mean Corpuscular Volume 106.3 fL (80-94); Mean Platelet Vol. 9.7 fl (6.2-12.0); Monocyte# 0.55 X10^3/uL; Monocyte% 6.1 % (0-10); NRBC Flagged by Analyzer 0 % (0-5); Neutrophil # 6.16 X10^3/uL (2.7-7.7); Neutrophil % 68.8 % (47-70); Platelet Count 387 K/mm3 (150-450); RBC Distribution Width CV 12.6 % (11.6-14.6); RBC Distribution Width SD 49.5 fl (35.1-43.9); Red Blood Count 3.03 M/mm3 (4.6-6.2)
[2022-06-01 04:46] LABS: Anion Gap 6 (5-15); BUN 15 mg/dL (7-18); BUN/Creat Ratio 30.1 RATIO (10-20); Calcium,Total 8.8 mg/dL (8.5-10.1); Chloride 104 mmol/L (98-107); EST Glomerular Filtration Rate 179 mL/min (>60); Est Glom Filt Rate - Afr Amer 217 mL/min (>60); Estimated Creatinine Clearance 168.13 ml/min; Glucose 112 mg/dL (74-106); Potassium 3.5 mmol/L (3.5-5.1); Sodium Level 139 mmol/L (136-145)
[2022-06-01] MEDS: KCL 20MEQ in 0.9% NS 20 MEQ/1,000 ML IV.SOLN. 75 MEQ IV ×2 (05:10→18:06)
[2022-06-01] MEDS: TITRATION PARAMETER CHANGE 1 EACH IV (07:38)
[2022-06-01] MEDS: Chlorhexidine 15 ML PO ×2 (07:39→21:09)
--- NOTE | 2022-06-01 07:40 | PCM.PN.INT ---
Assessment & Plan Assessment/Plan (1) Alcohol withdrawal: (2) EMMANUEL (acute kidney injury): (3) Alcohol withdrawal delirium: (4) Alcohol withdrawal seizure: QUALIFIERS: Complication of substance-induced condition: with delirium Qualified Code(s): F10.931 - Alcohol use, unspecified with withdrawal delirium; R56.9 - Unspecified convulsions PLAN: Plan RECOMMENDATIONS: 1. Continue current ventilator and sedation. Increase steroid therapy 2. Clarify goals of therapy prior to extubation 3. Resume tube feeds and twice daily PPI. 4. Spontaneous breathing and awakening trials per protocol 5. Monitor off antibiotics 6. Continue appropriate DVT prophylaxis. 7. Continue diuretics as tolerated by hemodynamics and renal function. IMPRESSIONS: 1. Acute DTs following alcohol withdrawal The patient has a history of heavy alcohol use and is currently amidst acute alcohol withdrawal, which has been complicated by seizures. Plan to continue supportive measures including invasive mechanical ventilatory support, propofol, thiamine and folate, and as needed Ativan. The patient has completed his phenobarbital taper. Plan to continue attempts at daily spontaneous awakening trials to assess readiness for a trial of extubation. Continue current sedation regimen. Patient should be out of withdrawal at this time. Patient may have some psychomotor agitation secondary to delirium as he is not currently following commands 2. Acute hypercarbic respiratory failure secondary to E. coli pneumonia The patient has now completed a 7-day treatment course of antimicrobials. He is overall net positive from a volume perspective for the hospitalization. Therefore, I agree with attempts at volume optimization with IV diuretics as tolerated by hemodynamics and renal function. Continue to wean FiO2 and PEEP to maintain oxygen saturations at or above 90%. The patient did develop postextubation stridor on the morning of May 28. Ultimately, he did have to be reintubated. Patient may qualify for extubation in the near future, but need to clarify goals of therapy as if patient is reintubated, tracheostomy would be recommended. However, would recommend a trial of extubation prior to tracheostomy. Increase steroids to optimize success. 3. Acute blood loss anemia secondary to upper GI bleed secondary to grade D esophagitis Blood counts remain stable. Plan to continue PPI therapy per GI recommendations. 4. Rhabdomyolysis/chronic thrombocytopenia/acute kidney injury/hyperbilirubinemia Complicates care, management, recovery and prognosis. Continue supportive measures as noted above. TIME: 35 minutes of critical care time, inclusive of procedures, was spent addressing the patient's acute DTs, acute hypercarbic respiratory failure, blood loss anemia, review of all data and collaboration with the care team. Subjective Subjective Patient did okay overnight from a hemodynamic standpoint. Patient continues to have intermittent agitation requiring both propofol and Precedex. Patient has tolerated tube feeds. Patient did not have a spontaneous breathing trial this morning secondary to agitation and concerns about next of kin. Objective Data Objective Data Vital Signs: Vital Signs Temp Pulse Resp BP Pulse Ox O2 Del Method O2 Flow Rate 37.1 C 76 18 124/69 H 95 Mechanical Ventilator 15 06/01/22 03:00 06/01/22 07:28 06/01/22 07:28 06/01/22 03:00 06/01/22 07:28 06/01/22 03:00 05/28/22 07:10 FiO2 30 06/01/22 07:28 Oxygen Flow Rate (L/min) 15 Oxygen Delivery Method Mechanical Ventilator Weight: 104.8 kg Body Mass Index (BMI) 31.5 Intake & Output: Intake and Output for Last 24 Hours 05/30/22 05/31/22 06/01/22 23:59 23:59 23:59 Intake Total 7528.16 / 7961.41 6482.32 / 6596.03 1294.81 / 1294.81 Output Total 3325 / 3325 3400 / 3400 300 / 300 Balance 4203.16 / 4636.41 3082.32 / 3196.03 994.81 / 994.81 Lab / Micro Data Attestation: I reviewed the patient's lab results. Result Diagrams: 06/01/22 04:00 06/01/22 04:00 Labs: Laboratory Results - last 24 hr 05/31/22 11:40: Total Creatine Kinase 33 L, Triglycerides 209 H 06/01/22 04:00: WBC 9.0, RBC 3.03 L, Hgb 11.2 L, Hct 32.2 L, MCV 106.3 H, MCH 37.0 H, MCHC 34.8, RDW Std Deviation 49.5 H, RDW Coeff of Valerio 12.6, Plt Count 387, MPV 9.7, Immature Gran % (Auto) 0.800, Neut % (Auto) 68.8, Lymph % (Auto) 20.8, [place] % (Auto) 6.1, Eos % (Auto) 2.3, Baso % (Auto) 1.2 H, Absolute Neuts (auto) 6.2, Absolute Lymphs (auto) 1.87, Nucleated RBC % 0 06/01/22 04:00: Sodium 139, Potassium 3.5, Chloride 104, Carbon Dioxide 29.0, Anion Gap 6, BUN 15, Creatinine 0.50 L, Estim Creat Clear Calc 168.13, Est GFR (MDRD) Af Amer 217, Est GFR (MDRD) Non-Af 179, BUN/Creatinine Ratio 30.1 H, Glucose 112 H, Calcium 8.8 Micro: Microbiology 05/29/22 10:05 Sputum, Induced/Lukens Gram Stain - Final 05/29/22 10:05 Sputum, Induced/Lukens Respiratory Culture - Final Presumptive C albicans 05/24/22 09:00 Blood Culture (Wb) - Anticubital Right Blood Culture - Final No growth in 5 days. 05/24/22 08:40 Blood Culture (Wb) - Other Blood Culture - Final No growth in 5 days. 05/24/22 09:20 Sputum, Induced/Lukens Gram Stain - Final 05/24/22 09:20 Sputum, Induced/Lukens Respiratory Culture - Final Escherichia coli 05/24/22 08:40 Urine Catheter - Kirk Urine Culture - Final Culture exhibits no growth. 05/19/22 19:00 Sputum, Tracheal Aspirate Gram Stain - Final 05/19/22 19:00 Sputum, Tracheal Aspirate Respiratory Culture - Final 05/19/22 09:10 Gastric Fluid/Contents Gastric Occult Blood - Final Occult Blood Positive Rhythm Strip Rhythm Strip: Sinus Rhythm Rate: 73 Ectopy: PVC(s) Physical Exam Const alert Constitutional Narrative: Currently on full support. He is alert and tracks. Not following commands. General Appearance: patient mechanically ventilated Nutritional Appearance: obese HEENT normocephalic, head/scalp atraumatic and moist oral mucous membranes Mouth: endotracheal tube in place and OG tube in place Eyes PERRL and EOMs intact bilaterally Neck full ROM and no lymphadenopathy Chest inspection of chest normal Resp Effort and Inspection: Negative for actively coughing Auscultation: Negative for rales, rhonchi or wheezes Cardio regular rate, regular rhythm, S1 normal heart sound, S2 normal heart sound, no murmurs, no rub and no gallops GI soft to palpation GI Narrative: Obese. Large inguinal and umbilical hernia. Reducible. Narrative: Large inguinal hernia Extremity General Extremity: edema; Negative for clubbing Skin no rashes or lesions noted Neuro Neuro Narrative: Alert. Spontaneous movement of all extremities. Not following commands. Psych Activity / Motor Behavior: restless Charges/Coding Procedures Hospitalists Procedures: 52123 Critial Care 1st Hr
[2022-06-01] MEDS: Propofol 10MG/Ml 1,000 MG/100 ML Bottle 25.2 MG CONT INF (08:11)
[2022-06-01] MEDS: Enoxaparin 40 MG/0.4 ML Syringe SC (09:40)
[2022-06-01] MEDS: QUEtiapine 100 MG Tablet GT ×2 (09:41→21:10)
[2022-06-01] MEDS: Furosemide 40 MG/4 ML Vial IV ×2 (09:41→18:08)
--- NOTE | 2022-06-01 09:46 | CASEMGMT ---
Physician would like a family meeting to discuss plan of care. Patient lives with his 93 year old mother. Staff has been talking with patient's mom, but she does not appear to understand situation. She continues to ask when he is coming home. KG contacted patient's sister, Leti. Leti lives in [place]. She is willing to take part in patient's care, however her mother would likely not be happy with this. Leti said patient and her mom have a long history. Patient's mom enables patient and has for years. Patient does have an workers compensation defense attorney and she is pretty sure patient has Healthcare Power of Registration Coordinator papers. KG told Leti SW will contact patient's workers compensation defense attorney to see if he can assist. SW will keep in touch with her. KG called patient's workers compensation defense attorney, Helder Craft and asked to speak with him. He was leaving for court. KG asked that he call SW back regarding patient as some decisions will need to be made. Romana Diaz MAP EDITOR [facility]
[2022-06-01] MEDS: Propofol 10MG/Ml 1,000 MG/100 ML Bottle 28.3 MG CONT INF ×4 (11:32→21:00)
[2022-06-01] MEDS: Vital AF 1.2 Cal Liquid 1,000 ML 65 ML GT (12:47)
--- NOTE | 2022-06-01 15:14 | CASEMGMT ---
SW spoke with [employer] Operator Helder Craft and he does not have any Healthcare Power of [employer] Operator papers for patient. SW has tried to call patient's mom twice and not been able to reach her. At this time the plan will be to arrange for patient's mom to come to [facility] to meet with the physician, RN, and KG. SW will continue to try and reach patient's mom. Romana Diaz ENROLLMENT SERVICES VICE PRESIDENT [facility]
--- NOTE | 2022-06-01 15:37 | PN.HOSP_ITS ---
Subjective Subjective Patient remains intubated and sedated. Per discussion with dial lathe operator there is plans to talk to a sister if we are able to get in contact with her. His next of kin is his mother however she is unable to make decisions for him based on her mental status. He not having any significant agitation however was extuba alessandro and required reintubation secondary to postextubation stridor on 05/28/2022. Objective Data Objective Data Vital Signs: Vital Signs Temp Pulse Resp BP Pulse Ox O2 Del Method O2 Flow Rate 97.1 F L 61 14 114/64 95 Mechanical Ventilator 30 06/01/22 12:00 06/01/22 14:00 06/01/22 14:00 06/01/22 14:00 06/01/22 14:00 06/01/22 14:00 06/01/22 14:00 FiO2 30 06/01/22 13:38 Oxygen Flow Rate (L/min) 30 Oxygen Delivery Method Mechanical Ventilator Weight: 104.8 kg Body Mass Index (BMI) 31.5 Intake & Output: Intake and Output for Last 24 Hours 05/30/22 05/31/22 06/01/22 23:59 23:59 23:59 Intake Total 7528.16 / 7961.41 6482.32 / 6596.03 3351.93 / 3351.93 Output Total 3325 / 3325 3400 / 3400 1900 / 1900 Balance 4203.16 / 4636.41 3082.32 / 3196.03 1451.93 / 1451.93 Lab / Micro Data Result Diagrams: 06/01/22 04:00 06/01/22 04:00 Labs: Laboratory Results - last 24 hr 06/01/22 04:00: WBC 9.0, RBC 3.03 L, Hgb 11.2 L, Hct 32.2 L, MCV 106.3 H, MCH 37.0 H, MCHC 34.8, RDW Std Deviation 49.5 H, RDW Coeff of Valerio 12.6, Plt Count 387, MPV 9.7, Immature Gran % (Auto) 0.800, Neut % (Auto) 68.8, Lymph % (Auto) 20.8, [place] % (Auto) 6.1, Eos % (Auto) 2.3, Baso % (Auto) 1.2 H, Absolute Neuts (auto) 6.2, Absolute Lymphs (auto) 1.87, Nucleated RBC % 0 06/01/22 04:00: Sodium 139, Potassium 3.5, Chloride 104, Carbon Dioxide 29.0, Anion Gap 6, BUN 15, Creatinine 0.50 L, Estim Creat Clear Calc 168.13, Est GFR (MDRD) Af Amer 217, Est GFR (MDRD) Non-Af 179, BUN/Creatinine Ratio 30.1 H, Glucose 112 H, Calcium 8.8 Micro: Microbiology 05/29/22 10:05 Sputum, Induced/Lukens Gram Stain - Final 05/29/22 10:05 Sputum, Induced/Lukens Respiratory Culture - Final Presumptive C albicans 05/24/22 09:00 Blood Culture (Wb) - Anticubital Right Blood Culture - Final No growth in 5 days. 05/24/22 08:40 Blood Culture (Wb) - Other Blood Culture - Final No growth in 5 days. 05/24/22 09:20 Sputum, Induced/Lukens Gram Stain - Final 05/24/22 09:20 Sputum, Induced/Lukens Respiratory Culture - Final Escherichia coli 05/24/22 08:40 Urine Catheter - Kirk Urine Culture - Final Culture exhibits no growth. 05/19/22 19:00 Sputum, Tracheal Aspirate Gram Stain - Final 05/19/22 19:00 Sputum, Tracheal Aspirate Respiratory Culture - Final 05/19/22 09:10 Gastric Fluid/Contents Gastric Occult Blood - Final Occult Blood Positive Rhythm Strip Rhythm Strip: Sinus Rhythm Rate: 73 Ectopy: PVC(s) Physical Exam Const Constitutional Narrative: Patient intubated and sedated, currently is calm without any significant agitation HEENT normocephalic, head/scalp atraumatic and moist oral mucous membranes Eyes conjunctivae normal Eyes Narrative: No scleral icterus, right pupil is abnormal from previous injury, left pupil is reactive Resp no retractions, no use of accessory muscles and clear to auscultation bilaterally Resp Narrative: diminished breath sounds diffusely intubated and sedated. Auscultation: Negative for crackles, rhonchi or wheezes Cardio regular rate, regular rhythm, S1 normal heart sound, S2 normal heart sound, no murmurs, no rub, no gallops and no clicks GI normal to inspection, nondistended, normoactive bowel sounds, soft to palpation, non-tender and non-distended Extremity Extremity Narrative: Trace edema in bilateral extremities upper and lower, no cyanosis or clubbing Neuro Neuro Narrative: intubated, sedated, does move all extremities spontaneously per discussion with nursing however can only fairly sedate Psych Psych Narrative: Unable to examine Assessment & Plan Assessment/Plan (1) Fever: (2) Acute hypercapnic respiratory failure: (3) Alcoholic hepatitis: (4) Alcohol withdrawal delirium: (5) Alcohol withdrawal seizure: QUALIFIERS: Complication of substance-induced condition: with delirium Qualified Code(s): F10.931 - Alcohol use, unspecified with withdrawal delirium; R56.9 - Unspecified convulsions PLAN: Plan Acute hypercapnic respiratory failure -Suspect multifactorial with suspected aspiration and DTs -Extubated on 05/28/2022 however required reintubation secondary to stridor -Patient will remain intubated as meeting is pending for clarification on plans after discharge whether they would want reintubation with trach and PEG versus comfort measures if he does not tolerate extubation -Continue sedation as ordered -Continue IV diuretics Acute alcohol withdrawal with DTs -Patient appears to be out of acute withdrawal at this time -Continue propofol/Precedex -Continue Seroquel -[place] was discontinued -Has had 3 days of IV thiamine 200 mg discontinued -Continue folate -180 consultation after extubation if patient willing to go through the process for ongoing alcohol abstinence E. coli pneumonia -Culture positive from 05/24/2022 -Likely VAP -Antibiotics completed Grade D erosive esophagitis/acute gastritis with hemorrhage -Hemoglobin down a bit more today but patient is markedly positive for his hospital stay -No signs of bleeding -EGD done on 05/21/2022 shows grade D erosive esophagitis that was treated with heater probe, acute gastritis with hemorrhage that was treated with heater probe and normal small bowel exam into the jejunum -Change IV drip to 80 mg IV twice daily per GI recommendations and anticipate transition to 40 mg twice daily once able to take enterally, +/-Carafate -Tube feed initiated -GI following Mild anemia -Hemoglobin 11.2 -Macrocytic in nature -Continue to monitor with repeat CBC in a.m. Alcoholic hepatitis -Maddrey score is 23 at the time of admission -No need for steroid therapy at this time -Continue to monitor -GI following-appreciate input Chronic thrombocytopenia -Likely related to toxic effect of alcohol to marrow/splenic sequestration with alcoholism and suspected liver disease -Resolved and platelets have normalized Hypokalemia -Potassium replaced yesterday -Repeat potassium today is normalized at 3.5 -Repeat BMP in a.m. DVT prophylaxis -Continue subcu enoxaparin -Continue DVT prophylaxis with SCDs CODE STATUS -Full code Charges/Coding Visit Charges Inpatient E&M: 92917 Subs Hosp L2
--- NOTE | 2022-06-01 15:57 | CASEMGMT ---
KG called patient's mom, Kimberly. KG asked Kimberly if she could come to the hospital tomorrow to talk with the physician. Kimberly said she can and she will take a cab. She asked SW what time and KG told her 10a. KG notified Dr Joy and RN. Plan: Meet with patient's mother, Kimberly to discuss plan of care tomorrow at 10a. Romana SANDHU
[2022-06-01] MEDS: Polyethylene Glycol 3350 17 GM PACKET GT (18:08)
[2022-06-02] VITALS (34 sets, daily range): BP systolic 105–139; BP diastolic 57–74; PULSE 45–75; RESP 13–18; TEMP 35.6–37.3; O2SAT 89–98
[2022-06-02] MEDS: Propofol 10MG/Ml 1,000 MG/100 ML Bottle 28.3 MG CONT INF ×3 (00:29→06:16)
[2022-06-02] MEDS: LORazepam 2 MG/ML Syringe IV (00:40)
[2022-06-02] MEDS: Vital AF 1.2 Cal Liquid 1,000 ML 65 ML GT ×2 (03:19→21:52)
[2022-06-02 04:55] LABS: Absolute Lymphocyte Count 0.95 X10^3/uL (0.83-4.51); Absolute Neutrophil Count 9.4 X10^3/uL (2.0-7.7); Basophil# 0.05 X10^3/uL; Basophil% 0.5 % (0-1); Eosinophil# 0.01 X10^3/uL; Eosinophils% 0.1 % (0-5); Hematocrit 34.9 % (40-54); Hemoglobin 12.3 g/dL (13.0-16.5); Lymphocyte # 0.95 X10^3/ul (0.83-4.51); Lymphocyte % 8.7 % (19-41); Mean Corp Hgb Conc 35.2 g/dL (32-36); Mean Corpuscular Hgb 37.5 pg (27.0-32.0); Mean Corpuscular Volume 106.4 fL (80-94); Mean Platelet Vol. 9.9 fl (6.2-12.0); Monocyte# 0.39 X10^3/uL; Monocyte% 3.6 % (0-10); NRBC Flagged by Analyzer 0 % (0-5); Neutrophil # 9.42 X10^3/uL (2.7-7.7); Neutrophil % 86.2 % (47-70); Platelet Count 412 K/mm3 (150-450); RBC Distribution Width CV 12.2 % (11.6-14.6); RBC Distribution Width SD 48.6 fl (35.1-43.9); Red Blood Count 3.28 M/mm3 (4.6-6.2); White Blood Count 10.9 K/mm3 (4.4-11.0)
[2022-06-02 05:22] LABS: Anion Gap 6 (5-15); BUN 13 mg/dL (7-18); BUN/Creat Ratio 26.7 RATIO (10-20); Calcium,Total 8.2 mg/dL (8.5-10.1); Chloride 105 mmol/L (98-107); Creatinine, Serum 0.49 mg/dL (0.70-1.30); EST Glomerular Filtration Rate 185 mL/min (>60); Est Glom Filt Rate - Afr Amer 224 mL/min (>60); Estimated Creatinine Clearance 171.56 ml/min; Glucose 182 mg/dL (74-106); Potassium 3.9 mmol/L (3.5-5.1); Sodium Level 139 mmol/L (136-145)
[2022-06-02] MEDS: 0.9% Saline Lock 10 ML Syringe IV ×2 (06:16→23:23)
[2022-06-02] MEDS: TITRATION PARAMETER CHANGE 1 EACH IV (06:51)
--- NOTE | 2022-06-02 07:32 | PN.CC_ITS ---
Assessment & Plan Assessment/Plan (1) Alcohol withdrawal: (2) EMMANUEL (acute kidney injury): (3) Alcohol withdrawal delirium: (4) Alcohol withdrawal seizure: QUALIFIERS: Complication of substance-induced condition: with delirium Qualified Code(s): F10.931 - Alcohol use, unspecified with withdrawal delirium; R56.9 - Unspecified convulsions PLAN: Plan RECOMMENDATIONS: 1. Continue current ventilator and sedation. Continue steroid therapy 2. Clarify goals of therapy prior to extubation with mother at 10 AM 3. Resume tube feeds and twice daily PPI. 4. Spontaneous breathing and awakening trials per protocol 5. Potential consult to ENT 6. Continue appropriate DVT prophylaxis. 7. Continue diuretics as tolerated by hemodynamics and renal function. IMPRESSIONS: 1. Acute DTs following alcohol withdrawal The patient has a history of heavy alcohol use and was amidst acute alcohol withdrawal on presentation, which has been complicated by seizures. Plan to continue supportive measures including invasive mechanical ventilatory support, propofol, thiamine and folate, and as needed Ativan. The patient has completed his phenobarbital taper. Unfortunately, patient has not developed a leak despite 24 hours of high-dose steroids. We will have to discuss with the mother of an plans moving forward. Patient may need to be evaluated for a trach and PEG. Continue current sedation regimen. Patient should be out of withdr awal at this time. Patient may have some psychomotor agitation secondary to delirium as he is not currently following commands 2. Acute hypercarbic respiratory failure secondary to E. coli pneumonia The patient has now completed a 7-day treatment course of antimicrobials. He is overall net positive from a volume perspective for the hospitalization. Therefore, I agree with attempts at volume optimization with IV diuretics as tolerated by hemodynamics and renal function. Continue to wean FiO2 and PEEP to maintain oxygen saturations at or above 90%. The patient did develop postextubation stridor on the morning of May 28. Ultimately, he did have to be reintubated. Patient has been on high-dose steroids for over 24 hours and still has no leak. If mother wishes to be aggressive, will likely need to consult ENT for extubation in the OR with potential trach. Await results of family meeting at 10 AM 3. Acute blood loss anemia secondary to upper GI bleed secondary to grade D esophagitis Blood counts remain stable. Plan to continue PPI therapy per GI recommendations. 4. Rhabdomyolysis/chronic thrombocytopenia/acute kidney injury/hyperbilirubinemia Complicates care, management, recovery and prognosis. Continue supportive measures as noted above. Addendum 10:45 AM: Extensive discussion with the mother at the bedside. Mother appears to be overwhelmed by the decision, but it does appear to be competent. Patient was very clear with the mother that he would never want a tracheostomy. Patient's mother was able to voice this to both the nurse, social service worker and myself. However, patient's mother did have difficulty grasping that he could require palliation and would if stridor were to develop. Did offer to contact a support person such as the patient's sister for discussion, but the mother adamantly refused. After extensive conversation, it was decided that the mother does not want to be here for the extubation. We will discontinue the fentanyl for 1 to 2 hours and then discontinue propofol. Patient will be extubated on Precedex. If patient does well, he will be supported. If patient starts to develop stridor and respiratory distress, positive medications will be given. Patient's mother is aware that he could pass and states that is what he would want anyway. TIME: 78 minutes of critical care time, inclusive of procedures, was spent addressing the patient's acute DTs, acute hypercarbic respiratory failure, blood loss anemia, review of all data and collaboration with the care team. Subjective Subjective Patient did well from a hemodynamic standpoint overnight. No fevers were noted. Patient did not have a spontaneous breathing trial this morning secondary to agitation. Objective Data Objective Data Vital Signs: Vital Signs Temp Pulse Resp BP Pulse Ox O2 Del Method O2 Flow Rate 36.6 C 49 L 14 126/68 H 94 Mechanical Ventilator 30 06/02/22 04:00 06/02/22 07:08 06/02/22 07:08 06/02/22 06:00 06/02/22 07:08 06/02/22 06:00 06/01/22 14:00 FiO2 30 06/02/22 07:08 Oxygen Flow Rate (L/min) 30 Oxygen Delivery Method Mechanical Ventilator Weight: 105.4 kg Body Mass Index (BMI) 31.5 Intake & Output: Intake and Output for Last 24 Hours 05/31/22 06/01/22 06/02/22 23:59 23:59 23:59 Intake Total 6482.32 / 6596.03 5103.75 / 5297.75 1741.80 / 1741.80 Output Total 3400 / 3400 4575 / 4975 900 / 900 Balance 3082.32 / 3196.03 528.75 / 322.75 841.80 / 841.80 Lab / Micro Data Attestation: I reviewed the patient's lab results. Result Diagrams: 06/02/22 04:30 06/02/22 04:30 Labs: Laboratory Results - last 24 hr 06/02/22 04:30: WBC 10.9, RBC 3.28 L, Hgb 12.3 L, Hct 34.9 L, MCV 106.4 H, MCH 37.5 H, MCHC 35.2, RDW Std Deviation 48.6 H, RDW Coeff of Valerio 12.2, Plt Count 412, MPV 9.9, Immature Gran % (Auto) 0.900, Neut % (Auto) 86.2 H, Lymph % (Auto) 8.7 L, [place] % (Auto) 3.6, Eos % (Auto) 0.1, Baso % (Auto) 0.5, Absolute Neuts (auto) 9.4 H, Absolute Lymphs (auto) 0.95, Nucleated RBC % 0 06/02/22 04:30: Sodium 139, Potassium 3.9, Chloride 105, Carbon Dioxide 28.0, Anion Gap 6, BUN 13, Creatinine 0.49 L, Estim Creat Clear Calc 171.56, Est GFR (MDRD) Af Amer 224, Est GFR (MDRD) Non-Af 185, BUN/Creatinine Ratio 26.7 H, Glucose 182 H, Calcium 8.2 L Micro: Microbiology 05/29/22 10:05 Sputum, Induced/Lukens Gram Stain - Final 05/29/22 10:05 Sputum, Induced/Lukens Respiratory Culture - Final Presumptive C albicans 05/24/22 09:00 Blood Culture (Wb) - Anticubital Right Blood Culture - Final No growth in 5 days. 05/24/22 08:40 Blood Culture (Wb) - Other Blood Culture - Final No growth in 5 days. 05/24/22 09:20 Sputum, Induced/Lukens Gram Stain - Final 05/24/22 09:20 Sputum, Induced/Lukens Respiratory Culture - Final Escherichia coli 05/24/22 08:40 Urine Catheter - Kirk Urine Culture - Final Culture exhibits no growth. 05/19/22 19:00 Sputum, Tracheal Aspirate Gram Stain - Final 05/19/22 19:00 Sputum, Tracheal Aspirate Respiratory Culture - Final 05/19/22 09:10 Gastric Fluid/Contents Gastric Occult Blood - Final Occult Blood Positive Rhythm Strip Rhythm Strip: Sinus Rhythm Rate: 54 Ectopy: PVC(s) Physical Exam Const alert Constitutional Narrative: Currently on full support. He is alert and tracks. Not following commands. General Appearance: patient mechanically ventilated Nutritional Appearance: obese HEENT normocephalic, head/scalp atraumatic and moist oral mucous membranes HEENT Narrative: No leak noted with cuff deflation Mouth: endotracheal tube in place and OG tube in place Eyes PERRL and EOMs intact bilaterally Neck full ROM and no lymphadenopathy Chest inspection of chest normal Resp Effort and Inspection: Negative for actively coughing Auscultation: Negative for rales, rhonchi or wheezes Cardio regular rate, regular rhythm, S1 normal heart sound, S2 normal heart sound, no murmurs, no rub and no gallops GI soft to palpation GI Narrative: Obese. Large inguinal and umbilical hernia. Reducible. Narrative: Large inguinal hernia Extremity General Extremity: edema; Negative for clubbing Skin no rashes or lesions noted Neuro Neuro Narrative: Spontaneous movement of all extremities. Not following commands. Psych Activity / Motor Behavior: restless Mood & Affect: labile affect Charges/Coding Procedures Hospitalists Procedures: 59959 Critial Care 1st Hr Multi Select Codes Hospitalists' Procedures Procedures: 94474 Critial Care Addl 30 Min
[2022-06-02] MEDS: KCL 20MEQ in 0.9% NS 20 MEQ/1,000 ML IV.SOLN. 75 MEQ IV (07:44)
--- NOTE | 2022-06-02 09:35 | CASEMGMT ---
KG called patient's sister, Leti. KG let Leti know that physician and SW will be meeting with her mom today to discuss patient's plan of care. KG explained that the decision to be made is 1. if patient is extubated and he does not do well, will he be re-intubated and then get a trach or 2. Patient is extubated and if he does well, great and if not he would be kept comfortable and pass. KG let her know SW may call her while in the meeting if it is felt patient's mom needs assistance with understanding. She said she would be available. Romana Diaz SEMICONDUCTOR PROCESSING TECHNICIAN [employer]
[2022-06-02] MEDS: Propofol 10MG/Ml 1,000 MG/100 ML Bottle 28.5 MG CONT INF ×3 (09:52→19:08)
--- NOTE | 2022-06-02 10:00 | CASEMGMT ---
KG and Dr Joy met with patient's mom, Kimberly in patient's room. KG introduced self. Plan of care was discussed extensively. Kimberly seemed to understand, but also seemed to struggle with the decision. KG tried a couple of times to get Kimberly to allow SW to call her daughter to help and she declined. Kimberly was consistent in her stating patient would never want a tracheostomy. Kimberly decided she wanted to go home and call her daughter to discuss the situation. KG asked patient if she needed a ride home and she did. She asked if SW could call Jose De [facility]. KG called Jose De Jesus and arranged for patient to get picked up in 20 minutes. The cost would be $20.32. KG let patient know this information and she was okay with this. KG also notified MAUREEN Plascencia. They will have patient at the main entrance. KG called Leti and let her know about discussion. KG let her know Kimberly was going to call her to discuss situation. KG asked Leti if she would like the RN to call her and make sure she understands the decision that needs to be made. Leti was open to this. KG spoke with MAUREEN Plascencia and he said he would call Leti. Plan: Await decision from patient's mom. Romana SNADHU
[2022-06-02] MEDS: Furosemide 40 MG/4 ML Vial IV ×2 (10:52→18:01)
[2022-06-02] MEDS: Enoxaparin 40 MG/0.4 ML Syringe SC (10:52)
[2022-06-02] MEDS: QUEtiapine 100 MG Tablet GT ×2 (10:52→20:24)
[2022-06-02] MEDS: Chlorhexidine 15 ML PO ×2 (10:53→20:24)
[2022-06-02] MEDS: Propofol 10MG/Ml 1,000 MG/100 ML Bottle 25.3 MG CONT INF (13:29)
--- NOTE | 2022-06-02 14:55 | PCM.PN.HOSP ---
Subjective Subjective No issues overnight. The patient remains intubated and sedated. Unfortunately there is no cuff leak around his ET tube. Family meeting scheduled for later today. Objective Data Objective Data Vital Signs: Vital Signs Temp Pulse Resp BP Pulse Ox O2 Del Method O2 Flow Rate 96.0 F L 47 L 14 113/62 94 Mechanical Ventilator 30 06/02/22 12:00 06/02/22 13:31 06/02/22 13:31 06/02/22 12:00 06/02/22 13:31 06/02/22 12:00 06/01/22 14:00 FiO2 40 06/02/22 13:31 Oxygen Flow Rate (L/min) 30 Oxygen Delivery Method Mechanical Ventilator Weight: 105.4 kg Body Mass Index (BMI) 31.5 Intake & Output: Intake and Output for Last 24 Hours 05/31/22 06/01/22 06/02/22 23:59 23:59 23:59 Intake Total 6482.32 / 6596.03 5103.75 / 5297.75 3908.30 / 3908.30 Output Total 3400 / 3400 4575 / 4975 1800 / 1800 Balance 3082.32 / 3196.03 528.75 / 322.75 2108.30 / 2108.30 Lab / Micro Data Result Diagrams: 06/02/22 04:30 06/02/22 04:30 Labs: Laboratory Results - last 24 hr 06/02/22 04:30: WBC 10.9, RBC 3.28 L, Hgb 12.3 L, Hct 34.9 L, MCV 106.4 H, MCH 37.5 H, MCHC 35.2, RDW Std Deviation 48.6 H, RDW Coeff of Valerio 12.2, Plt Count 412, MPV 9.9, Immature Gran % (Auto) 0.900, Neut % (Auto) 86.2 H, Lymph % (Auto) 8.7 L, [place] % (Auto) 3.6, Eos % (Auto) 0.1, Baso % (Auto) 0.5, Absolute Neuts (auto) 9.4 H, Absolute Lymphs (auto) 0.95, Nucleated RBC % 0 06/02/22 04:30: Sodium 139, Potassium 3.9, Chloride 105, Carbon Dioxide 28.0, Anion Gap 6, BUN 13, Creatinine 0.49 L, Estim Creat Clear Calc 171.56, Est GFR (MDRD) Af Amer 224, Est GFR (MDRD) Non-Af 185, BUN/Creatinine Ratio 26.7 H, Glucose 182 H, Calcium 8.2 L Micro: Microbiology 05/29/22 10:05 Sputum, Induced/Lukens Gram Stain - Final 05/29/22 10:05 Sputum, Induced/Lukens Respiratory Culture - Final Presumptive C albicans 05/24/22 09:00 Blood Culture (Wb) - Anticubital Right Blood Culture - Final No growth in 5 days. 05/24/22 08:40 Blood Culture (Wb) - Other Blood Culture - Final No growth in 5 days. 05/24/22 09:20 Sputum, Induced/Lukens Gram Stain - Final 05/24/22 09:20 Sputum, Induced/Lukens Respiratory Culture - Final Escherichia coli 05/24/22 08:40 Urine Catheter - Kirk Urine Culture - Final Culture exhibits no growth. 05/19/22 19:00 Sputum, Tracheal Aspirate Gram Stain - Final 05/19/22 19:00 Sputum, Tracheal Aspirate Respiratory Culture - Final 05/19/22 09:10 Gastric Fluid/Contents Gastric Occult Blood - Final Occult Blood Positive Rhythm Strip Rhythm Strip: Sinus Rhythm Rate: 54 Ectopy: PVC(s) Physical Exam Const Constitutional Narrative: Patient intubated and sedated, currently is calm without any significant agitation HEENT normocephalic, head/scalp atraumatic and moist oral mucous membranes Eyes PERRL and conjunctivae normal Eyes Narrative: No scleral icterus, right pupil is abnormal from previous injury, left pupil is reactive Resp normal respiratory effort, no retractions, no use of accessory muscles and clear to auscultation bilaterally Resp Narrative: diminished breath sounds diffusely intubated and sedated. Auscultation: Negative for crackles, rhonchi or wheezes Cardio regular rate, regular rhythm, S1 normal heart sound, S2 normal heart sound, no murmurs, no rub, no gallops and no clicks GI normal to inspection, nondistended, normoactive bowel sounds, soft to palpation, non-tender and non-distended Extremity normal to inspection and no clubbing, cyanosis or edema Extremity Narrative: Trace edema in bilateral extremities upper and lower, no cyanosis or clubbing Neuro Neuro Narrative: intubated, sedated Psych Psych Narrative: Unable to examine Assessment & Plan Assessment/Plan (1) Fever: (2) Acute hypercapnic respiratory failure: (3) Alcoholic hepatitis: (4) Alcohol withdrawal delirium: (5) Alcohol withdrawal seizure: QUALIFIERS: Complication of substance-induced condition: with delirium Qualified Code(s): F10.931 - Alcohol use, unspecified with withdrawal delirium; R56.9 - Unspecified convulsions PLAN: Plan Acute hypercapnic respiratory failure -Suspect multifactorial with suspected aspiration and DTs -Extubated on 05/28/2022 however required reintubation secondary to stridor -Family meeting with critical care medicine and patient's mother today decided to extubate the patient and see how he does if develop stridor will be killed comfortable and if not we will continue supportive care as mother decided that he would not want to have a trach -Extubation per critical care medicine when felt appropriate -Continue sedation as ordered -Continue IV diuretics -Continue steroids per pulmonary critical care medicine Acute alcohol withdrawal with DTs -Patient appears to be out of acute withdrawal at this time -Continue propofol/Precedex -Continue Seroquel -Phenobarbital is completed -Has had 3 days of IV thiamine 200 mg discontinued -Continue folate -180 consultation after extubation if patient willing to go through the process for ongoing alcohol abstinence E. coli pneumonia -Culture positive from 05/24/2022 -Likely VAP -Antibiotics completed Grade D erosive esophagitis/acute gastritis with hemorrhage -Hemoglobin down a bit more today but patient is markedly positive for his hospital stay -No signs of bleeding -EGD done on 05/21/2022 shows grade D erosive esophagitis that was treated with heater probe, acute gastritis with hemorrhage that was treated with heater probe and normal small bowel exam into the jejunum -We will decrease PPI from 80 twice daily to 40 twice daily -Tube feed reinitiated -GI following Mild anemia -Hemoglobin 12.3 -Macrocytic in nature -Continue to monitor with repeat CBC in a.m. Alcoholic hepatitis -Maddrey score is 23 at the time of admission -No need for steroid therapy at this time -Continue to monitor -GI following-appreciate input Chronic thrombocytopenia -Likely related to toxic effect of alcohol to marrow/splenic sequestration with alcoholism and suspected liver disease -Resolved and platelets have normalized Hypokalemia -Resolved DVT prophylaxis -Continue subcu enoxaparin -Continue DVT prophylaxis with SCDs CODE STATUS -Full code Charges/Coding Visit Charges Inpatient E&M: 25582 Subs Hosp L2
[2022-06-02] MEDS: Propofol 10MG/Ml 1,000 MG/100 ML Bottle 31.6 MG CONT INF ×2 (21:30→23:22)
[2022-06-02] MEDS: Acetaminophen 650 MG/20 ML UDC GT (23:22)
[2022-06-03] VITALS (30 sets, daily range): BP systolic 119–171; BP diastolic 54–94; PULSE 52–89; RESP 14–25; TEMP 36.6–37.4; O2SAT 88–100
[2022-06-03] MEDS: Propofol 10MG/Ml 1,000 MG/100 ML Bottle 31.6 MG CONT INF ×3 (02:21→08:27)
[2022-06-03 03:32] LABS: Absolute Lymphocyte Count 0.96 X10^3/uL (0.83-4.51); Absolute Neutrophil Count 10.2 X10^3/uL (2.0-7.7); Basophil# 0.05 X10^3/uL; Basophil% 0.4 % (0-1); Hematocrit 36.1 % (40-54); Hemoglobin 12.2 g/dL (13.0-16.5); Lymphocyte # 0.96 X10^3/ul (0.83-4.51); Lymphocyte % 8.1 % (19-41); Mean Corp Hgb Conc 33.8 g/dL (32-36); Mean Corpuscular Hgb 36.1 pg (27.0-32.0); Mean Corpuscular Volume 106.8 fL (80-94); Mean Platelet Vol. 9.8 fl (6.2-12.0); Monocyte# 0.51 X10^3/uL; Monocyte% 4.3 % (0-10); NRBC Flagged by Analyzer 0 % (0-5); Neutrophil # 10.22 X10^3/uL (2.7-7.7); Neutrophil % 86.3 % (47-70); Platelet Count 435 K/mm3 (150-450); RBC Distribution Width CV 12.4 % (11.6-14.6); RBC Distribution Width SD 48.7 fl (35.1-43.9); Red Blood Count 3.38 M/mm3 (4.6-6.2); White Blood Count 11.9 K/mm3 (4.4-11.0)
[2022-06-03 03:43] LABS: Anion Gap 4 (5-15); BUN 14 mg/dL (7-18); BUN/Creat Ratio 25.6 RATIO (10-20); Calcium,Total 8.5 mg/dL (8.5-10.1); Chloride 104 mmol/L (98-107); Creatinine, Serum 0.55 mg/dL (0.70-1.30); EST Glomerular Filtration Rate 161 mL/min (>60); Est Glom Filt Rate - Afr Amer 195 mL/min (>60); Estimated Creatinine Clearance 152.85 ml/min; Glucose 201 mg/dL (74-106); Potassium 3.8 mmol/L (3.5-5.1); Sodium Level 139 mmol/L (136-145)
[2022-06-03] MEDS: 0.9% Saline Lock 10 ML Syringe IV ×2 (05:17→09:25)
--- NOTE | 2022-06-03 07:57 | PN.CC_ITS ---
Assessment & Plan Assessment/Plan (1) Alcohol withdrawal: (2) EMMANUEL (acute kidney injury): (3) Alcohol withdrawal delirium: (4) Alcohol withdrawal seizure: QUALIFIERS: Complication of substance-induced condition: with delirium Qualified Code(s): F10.931 - Alcohol use, unspecified with withdrawal delirium; R56.9 - Unspecified convulsions PLAN: Plan RECOMMENDATIONS: 1. Continue current ventilator and sedation. Continue steroid therapy 2. Clarify timing of extubation 3. Resume tube feeds and twice daily PPI. 4. Hold fentanyl 1 to 2 hours before extubation 5. Hold on ENT consult until response to extubation noted 6. Continue appropriate DVT prophylaxis. 7. Continue diuretics as tolerated by hemodynamics and renal function. IMPRESSIONS: 1. Acute DTs following alcohol withdrawal The patient has a history of heavy alcohol use and was amidst acute alcohol withdrawal on presentation, which has been complicated by seizures. Plan to continue supportive measures including invasive mechanical ventilatory support, propofol, thiamine and folate, and as needed Ativan. The patient has completed his phenobarbital taper. Unfortunately, patient has not developed a leak despite 24 hours of high-dose steroids. 2. Acute hypercarbic respiratory failure secondary to E. coli pneumonia The patient has now completed a 7-day treatment course of antimicrobials. He is overall net positive from a volume perspective for the hospitalization. Therefore, I agree with attempts at volume optimization with IV diuretics as tolerated by hemodynamics and renal function. Continue to wean FiO2 and PEEP to maintain oxygen saturations at or above 90%. The patient did develop postextubation stridor on the morning of May 28. Ultimately, he did have to be reintubated. Long discussion with the family yesterday. Patient is well- known to be against any tracheostomy. Timing appears to have changed. We will have to discuss with the family, but the plan will be to hold fentanyl drip for 1 to 2 hours, then discontinue propofol with extubation on Precedex. If patient does well after extubation, ENT evaluation for possible intervention can be discussed 3. Acute blood loss anemia secondary to upper GI bleed secondary to grade D esophagitis Blood counts remain stable. Plan to continue PPI therapy per GI recommendations. 4. Rhabdomyolysis/chronic thrombocytopenia/acute kidney injury/hyperbilirubinemia Complicates care, management, recovery and prognosis. Continue supportive measures as noted above. TIME: 38 minutes of critical care time, inclusive of procedures, was spent addressi ng the patient's acute DTs, acute hypercarbic respiratory failure, blood loss anemia, review of all data and collaboration with the care team. Subjective Subjective Patient was not extubated yesterday at the mother's request. Exact timing of extubation with no reintubation has not been determined at this time. We will reach out to patient's mother. Family is very clear that he would not want to be trached Objective Data Objective Data Vital Signs: Vital Signs Temp Pulse Resp BP Pulse Ox O2 Del Method O2 Flow Rate 37.0 C 52 L 14 128/66 H 90 Mechanical Ventilator 30 06/03/22 04:00 06/03/22 07:00 06/03/22 07:00 06/03/22 07:00 06/03/22 07:00 06/03/22 07:00 06/01/22 14:00 FiO2 40 06/03/22 07:00 Oxygen Flow Rate (L/min) 30 Oxygen Delivery Method Mechanical Ventilator Weight: 106.7 kg Body Mass Index (BMI) 31.5 Intake & Output: Intake and Output for Last 24 Hours 06/01/22 06/02/22 06/03/22 23:59 23:59 23:59 Intake Total 5103.75 / 5297.75 6420.69 / 6626.98 1169.54 / 1169.54 Output Total 4575 / 4975 3350 / 4150 1550 / 1550 Balance 528.75 / 322.75 3070.69 / 2476.98 -380.46 / -380.46 Lab / Micro Data Result Diagrams: 06/03/22 03:10 06/03/22 03:10 Labs: Laboratory Results - last 24 hr 06/03/22 03:10: WBC 11.9 H, RBC 3.38 L, Hgb 12.2 L, Hct 36.1 L, MCV 106.8 H, MCH 36.1 H, MCHC 33.8, RDW Std Deviation 48.7 H, RDW Coeff of Valerio 12.4, Plt Count 435, MPV 9.8, Immature Gran % (Auto) 0.900, Neut % (Auto) 86.3 H, Lymph % (Auto) 8.1 L, Dixie % (Auto) 4.3, Eos % (Auto) 0.0, Baso % (Auto) 0.4, Absolute Neuts (auto) 10.2 H, Absolute Lymphs (auto) 0.96, Nucleated RBC % 0 06/03/22 03:10: Sodium 139, Potassium 3.8, Chloride 104, Carbon Dioxide 31.0, Anion Gap 4 L, BUN 14, Creatinine 0.55 L, Estim Creat Clear Calc 152.85, Est GFR (MDRD) Af Amer 195, Est GFR (MDRD) Non-Af 161, BUN/Creatinine Ratio 25.6 H, Glucose 201 H, Calcium 8.5 Micro: Microbiology 05/29/22 10:05 Sputum, Induced/Lukens Gram Stain - Final 05/29/22 10:05 Sputum, Induced/Lukens Respiratory Culture - Final Presumptive C albicans 05/24/22 09:00 Blood Culture (Wb) - Anticubital Right Blood Culture - Final No growth in 5 days. 05/24/22 08:40 Blood Culture (Wb) - Other Blood Culture - Final No growth in 5 days. 05/24/22 09:20 Sputum, Induced/Lukens Gram Stain - Final 05/24/22 09:20 Sputum, Induced/Lukens Respiratory Culture - Final Escherichia coli 05/24/22 08:40 Urine Catheter - Kirk Urine Culture - Final Culture exhibits no growth. 05/19/22 19:00 Sputum, Tracheal Aspirate Gram Stain - Final 05/19/22 19:00 Sputum, Tracheal Aspirate Respiratory Culture - Final 05/19/22 09:10 Gastric Fluid/Contents Gastric Occult Blood - Final Occult Blood Positive Rhythm Strip Rhythm Strip: Sinus Rhythm Rate: 56 Ectopy: PVC(s) Physical Exam Const alert Constitutional Narrative: Currently on full support. He is alert and tracks. Not following commands. General Appearance: patient mechanically ventilated Nutritional Appearance: obese HEENT normocephalic, head/scalp atraumatic and moist oral mucous membranes HEENT Narrative: No leak noted with cuff deflation Mouth: endotracheal tube in place and OG tube in place Eyes PERRL and EOMs intact bilaterally Neck full ROM and no lymphadenopathy Chest inspection of chest normal Resp Effort and Inspection: Negative for actively coughing Auscultation: Negative for rales, rhonchi or wheezes Cardio regular rate, regular rhythm, S1 normal heart sound, S2 normal heart sound, no murmurs, no rub and no gallops GI soft to palpation GI Narrative: Obese. Large inguinal and umbilical hernia. Reducible. Narrative: Large inguinal hernia Extremity General Extremity: edema; Negative for clubbing Skin no rashes or lesions noted Neuro Neuro Narrative: Spontaneous movement of all extremities. Not following commands. Psych Activity / Motor Behavior: restless Mood & Affect: labile affect Charges/Coding Procedures Hospitalists Procedures: 42094 Critial Care 1st Hr
[2022-06-03] MEDS: Furosemide 40 MG/4 ML Vial IV ×2 (09:22→18:18)
[2022-06-03] MEDS: Enoxaparin 40 MG/0.4 ML Syringe SC (09:22)
[2022-06-03] MEDS: QUEtiapine 100 MG Tablet GT ×2 (09:22→21:14)
[2022-06-03] MEDS: Chlorhexidine 15 ML PO (09:26)
--- NOTE | 2022-06-03 10:49 | PN.HOSP_ITS ---
Subjective Subjective Intubated, no issues overnight Objective Data Objective Data Vital Signs: Vital Signs Temp Pulse Resp BP Pulse Ox O2 Del Method O2 Flow Rate 97.9 F 59 L 14 132/75 H 94 Mechanical Ventilator 30 06/03/22 08:00 06/03/22 10:00 06/03/22 10:00 06/03/22 10:00 06/03/22 10:00 06/03/22 10:00 06/01/22 14:00 FiO2 40 06/03/22 10:00 Oxygen Flow Rate (L/min) 30 Oxygen Delivery Method Mechanical Ventilator Weight: 235 lb 3.732 oz Body Mass Index (BMI) 31.5 Intake & Output: Intake and Output for Last 24 Hours 06/02/22 06/03/22 06/04/22 03:59 03:59 03:59 Intake Total 6206.69 / 6411.73 5585.95 / 5957.43 1041.72 / 1041.72 Output Total 4975 / 4975 4000 / 4200 500 / 500 Balance 1231.69 / 1436.73 1585.95 / 1757.43 541.72 / 541.72 Lab / Micro Data Result Diagrams: 06/03/22 03:10 06/03/22 03:10 Labs: Laboratory Results - last 24 hr 06/03/22 03:10: WBC 11.9 H, RBC 3.38 L, Hgb 12.2 L, Hct 36.1 L, MCV 106.8 H, MCH 36.1 H, MCHC 33.8, RDW Std Deviation 48.7 H, RDW Coeff of Valerio 12.4, Plt Count 435, MPV 9.8, Immature Gran % (Auto) 0.900, Neut % (Auto) 86.3 H, Lymph % (Auto) 8.1 L, Jay % (Auto) 4.3, Eos % (Auto) 0.0, Baso % (Auto) 0.4, Absolute Neuts (auto) 10.2 H, Absolute Lymphs (auto) 0.96, Nucleated RBC % 0 06/03/22 03:10: Sodium 139, Potassium 3.8, Chloride 104, Carbon Dioxide 31.0, Anion Gap 4 L, BUN 14, Creatinine 0.55 L, Estim Creat Clear Calc 152.85, Est GFR (MDRD) Af Amer 195, Est GFR (MDRD) Non-Af 161, BUN/Creatinine Ratio 25.6 H, Glucose 201 H, Calcium 8.5 Micro: Microbiology 05/29/22 10:05 Sputum, Induced/Lukens Gram Stain - Final 05/29/22 10:05 Sputum, Induced/Lukens Respiratory Culture - Final Presumptive C albicans 05/24/22 09:00 Blood Culture (Wb) - Anticubital Right Blood Culture - Final No growth in 5 days. 05/24/22 08:40 Blood Culture (Wb) - Other Blood Culture - Final No growth in 5 days. 05/24/22 09:20 Sputum, Induced/Lukens Gram Stain - Final 05/24/22 09:20 Sputum, Induced/Lukens Respiratory Culture - Final Escherichia coli 05/24/22 08:40 Urine Catheter - Kirk Urine Culture - Final Culture exhibits no growth. 05/19/22 19:00 Sputum, Tracheal Aspirate Gram Stain - Final 05/19/22 19:00 Sputum, Tracheal Aspirate Respiratory Culture - Final 05/19/22 09:10 Gastric Fluid/Contents Gastric Occult Blood - Final Occult Blood Positive Rhythm Strip Rhythm Strip: Sinus Rhythm Rate: 56 Ectopy: PVC(s) Physical Exam Const General Appearance: intubated and patient mechanically ventilated HEENT normocephalic Eyes PERRL and conjunctivae normal Neck supple and no JVD Resp normal respiratory effort, no retractions and no use of accessory muscles Auscultation: wheezes; Negative for crackles, rales or rhonchi Cardio regular rate, regular rhythm, S1 normal heart sound, S2 normal heart sound and no murmurs GI soft to palpation and non-distended; Negative for hepatosplenomegaly Extremity no clubbing, cyanosis or edema Skin no rashes or lesions noted Neuro Sensorium / Orientation: sedated on vent Psych Appearance: intubated Assessment & Plan Assessment/Plan (1) Fever: (2) Acute hypercapnic respiratory failure: (3) Alcoholic hepatitis: (4) Alcohol withdrawal delirium: (5) Alcohol withdrawal seizure: QUALIFIERS: Complication of substance-induced condition: with delirium Qualified Code(s): F10.931 - Alcohol use, unspecified with withdrawal delirium; R56.9 - Unspecified convulsions PLAN: Plan 1. Acute hypercapnic respiratory failure secondary to DTs and possible aspiration/E. coli pneumonia/alcoholic hepatitis ? He did have an attempted extubation which led to stridor after family discussion, will attempt to extubate later today with the plan and on reintubation. ? She has completed the phenobarb taper ? He has completed 7 days of antibiotics for his E. coli pneumonia ? Appreciate leaf blender assistance ? Madrey score of 23 during this admission, no need for steroids 2. Grade D erosive esophagitis with acute gastritis and hemorrhage leading to mild anemia ? No signs of active bleeding currently he did have an EGD done on 05/21/2022 which showed the esophagitis ? We will continue with his PPI at 40 mg twice daily ? Appreciate GIs assistance ? We will continue to monitor his anemia DVT: Lovenox Charges/Coding Visit Charges Inpatient E&M: 31734 Subs Hosp L2
--- NOTE | 2022-06-03 11:20 | CASEMGMT ---
SW was with patient's mom, Kimberly providing support after patient has been extubated. Patient is doing well so Kimberly is going to go home. A friend brought her in and will be taking her home. Romana SANDHU
[2022-06-03] MEDS: LORazepam 2 MG/ML Syringe IV ×3 (11:30→21:13)
[2022-06-03] MEDS: Morphine 2 MG/ML Syringe IV (21:13)
[2022-06-04] VITALS (29 sets, daily range): BP systolic 84–161; BP diastolic 44–95; PULSE 51–122; RESP 16–22; TEMP 35.9–36.9; O2SAT 90–100
[2022-06-04] MEDS: 0.9% Saline Lock 10 ML Syringe IV ×2 (00:20→02:15)
[2022-06-04] MEDS: LORazepam 2 MG/ML Syringe IV ×2 (02:14→05:46)
[2022-06-04] MEDS: Morphine 2 MG/ML Syringe IV ×2 (02:14→05:46)
[2022-06-04] MEDS: Dexmedetomidine 1,000 mcg in 0.9% NS 240 mL 40 MCG CONT INF (03:51)
[2022-06-04 04:16] LABS: Absolute Lymphocyte Count 1.17 X10^3/uL (0.83-4.51); Absolute Neutrophil Count 8.3 X10^3/uL (2.0-7.7); Basophil# 0.08 X10^3/uL; Basophil% 0.8 % (0-1); Eosinophil# 0.01 X10^3/uL; Eosinophils% 0.1 % (0-5); Hematocrit 38.7 % (40-54); Hemoglobin 13.2 g/dL (13.0-16.5); Lymphocyte # 1.17 X10^3/ul (0.83-4.51); Lymphocyte % 11.4 % (19-41); Mean Corp Hgb Conc 34.1 g/dL (32-36); Mean Corpuscular Hgb 35.8 pg (27.0-32.0); Mean Corpuscular Volume 104.9 fL (80-94); Mean Platelet Vol. 9.6 fl (6.2-12.0); Monocyte# 0.56 X10^3/uL; Monocyte% 5.4 % (0-10); NRBC Flagged by Analyzer 0 % (0-5); Neutrophil # 8.33 X10^3/uL (2.7-7.7); Neutrophil % 80.9 % (47-70); Platelet Count 419 K/mm3 (150-450); RBC Distribution Width CV 12.1 % (11.6-14.6); RBC Distribution Width SD 47.4 fl (35.1-43.9); Red Blood Count 3.69 M/mm3 (4.6-6.2); White Blood Count 10.3 K/mm3 (4.4-11.0)
[2022-06-04 04:31] LABS: Anion Gap 6 (5-15); BUN 14 mg/dL (7-18); BUN/Creat Ratio 26.7 RATIO (10-20); Calcium,Total 9.1 mg/dL (8.5-10.1); Chloride 103 mmol/L (98-107); Creatinine, Serum 0.52 mg/dL (0.70-1.30); EST Glomerular Filtration Rate 170 mL/min (>60); Est Glom Filt Rate - Afr Amer 205 mL/min (>60); Estimated Creatinine Clearance 161.67 ml/min; Glucose 173 mg/dL (74-106); Potassium 3.3 mmol/L (3.5-5.1); Sodium Level 139 mmol/L (136-145)
--- NOTE | 2022-06-04 07:30 | PCM.PN.INT ---
Assessment & Plan Assessment/Plan (1) Alcohol withdrawal: (2) EMMANUEL (acute kidney injury): (3) Alcohol withdrawal delirium: (4) Alcohol withdrawal seizure: QUALIFIERS: Complication of substance-induced condition: with delirium Qualified Code(s): F10.931 - Alcohol use, unspecified with withdrawal delirium; R56.9 - Unspecified convulsions PLAN: Plan RECOMMENDATIONS: 1. Discontinue steroids, IV morphine and Ativan 2. Wean down on Precedex 3. Bedside swallow evaluation when appropriate 4. Consider outpatient ENT evaluation 5. Okay to initiate alcohol (beer) if able to pass a swallow eval 6. Continue appropriate DVT prophylaxis. IMPRESSIONS: 1. Acute DTs following alcohol withdrawal The patient has a history of heavy alcohol use and was amidst acute alcohol withdrawal on presentation, which has been complicated by seizures. Patient has been off alcohol for over 2 weeks. Patient should be out of withdrawal at this time. Patient is expressing that he has no intentions of quitting drinking at this time. However, patient is still significantly delirious. We will discontinue morphine, Ativan and wean Precedex. Okay to give patient alcohol if able to pass a swallow evaluation. 2. Acute hypercarbic respiratory failure secondary to E. coli pneumonia The patient has now completed a 7-day treatment course of antimicrobials. He is overall net positive from a volume perspective for the hospitalization. Therefore, I agree with attempts at volume optimization with IV diuretics as tolerated by hemodynamics and renal function. Continue to wean FiO2 and PEEP to maintain oxygen saturations at or above 90%. The patient did develop postextubation stridor on the morning of May 28. Ultimately, he did have to be reintubated. Patient extubated on 06/03/2022 and no stridor was noted. Patient on minimal nasal cannula at this time. 3. Acute blood loss anemia secondary to upper GI bleed secondary to grade D esophagitis Blood counts remain stable. Plan to continue PPI therapy per GI recommendations. 4. Rhabdomyolysis/chronic thrombocytopenia/acute kidney injury/hyperbilirubinemia Complicates care, management, recovery and prognosis. Continue supportive measures as noted above. Subjective Subjective Patient extubated yesterday. Patient has been hemodynamically stable with no signs of stridor. However, patient has remained significantly impulsive trying to get out of bed. Patient received several doses of morphine and Ativan overnight. Unfortunately, patient has had to remained restrained. Patient is confused at this moment and states he just wants to go home, but is unable to give date of or other orientation responses. Objective Data Objective Data Vital Signs: Vital Signs Temp Pulse Resp BP Pulse Ox O2 Del Method O2 Flow Rate 35.9 C L 51 L 20 H 143/73 H 95 Nasal Cannula 2 06/04/22 05:00 06/04/22 06:00 06/04/22 06:00 06/04/22 06:00 06/04/22 06:00 06/04/22 06:00 06/04/22 06:00 FiO2 40 06/03/22 10:00 Oxygen Flow Rate (L/min) 2 Oxygen Delivery Method Nasal Cannula Weight: 102.5 kg Body Mass Index (BMI) 31.5 Intake & Output: Intake and Output for Last 24 Hours 06/02/22 06/03/22 06/04/22 23:59 23:59 23:59 Intake Total 6420.69 / 6626.98 3472.17 / 3511.67 475.27 / 475.27 Output Total 3350 / 4150 6250 / 6750 900 / 900 Balance 3070.69 / 2476.98 -2777.83 / -3238.33 -424.73 / -424.73 Lab / Micro Data Attestation: I reviewed the patient's lab results. Result Diagrams: 06/04/22 03:55 06/04/22 03:55 Labs: Laboratory Results - last 24 hr 06/04/22 03:55: WBC 10.3, RBC 3.69 L, Hgb 13.2, Hct 38.7 L, MCV 104.9 H, MCH 35.8 H, MCHC 34.1, RDW Std Deviation 47.4 H, RDW Coeff of Valerio 12.1, Plt Count 419, MPV 9.6, Immature Gran % (Auto) 1.400 H, Neut % (Auto) 80.9 H, Lymph % (Auto) 11.4 L, [place]upe % (Auto) 5.4, Eos % (Auto) 0.1, Baso % (Auto) 0.8, Absolute Neuts (auto) 8.3 H, Absolute Lymphs (auto) 1.17, Nucleated RBC % 0 06/04/22 03:55: Sodium 139, Potassium 3.3 L, Chloride 103, Carbon Dioxide 30.0, Anion Gap 6, BUN 14, Creatinine 0.52 L, Estim Creat Clear Calc 161.67, Est GFR (MDRD) Af Amer 205, Est GFR (MDRD) Non-Af 170, BUN/Creatinine Ratio 26.7 H, Glucose 173 H, Calcium 9.1 Micro: Microbiology 05/29/22 10:05 Sputum, Induced/Lukens Gram Stain - Final 05/29/22 10:05 Sputum, Induced/Lukens Respiratory Culture - Final Presumptive C albicans 05/24/22 09:00 Blood Culture (Wb) - Anticubital Right Blood Culture - Final No growth in 5 days. 05/24/22 08:40 Blood Culture (Wb) - Other Blood Culture - Final No growth in 5 days. 05/24/22 09:20 Sputum, Induced/Lukens Gram Stain - Final 05/24/22 09:20 Sputum, Induced/Lukens Respiratory Culture - Final Escherichia coli 05/24/22 08:40 Urine Catheter - Kirk Urine Culture - Final Culture exhibits no growth. 05/19/22 19:00 Sputum, Tracheal Aspirate Gram Stain - Final 05/19/22 19:00 Sputum, Tracheal Aspirate Respiratory Culture - Final 05/19/22 09:10 Gastric Fluid/Contents Gastric Occult Blood - Final Occult Blood Positive Rhythm Strip Rhythm Strip: Sinus Rhythm Rate: 56 Ectopy: PVC(s) Physical Exam Const alert Constitutional Narrative: RASS -1 to +3 General Appearance: Negative for cooperative HEENT normocephalic and head/scalp atraumatic Eyes PERRL and conjunctivae normal Eyes Narrative: Significant scleral injection noted Neck supple and no JVD Resp normal respiratory effort, no retractions and no use of accessory muscles Resp Narrative: No stridor appreciated Auscultation: Negative for rhonchi or wheezes Cardio regular rhythm, S1 normal heart sound, S2 normal heart sound and no murmurs Rate: tachycardic GI soft to palpation and non-distended; Negative for hepatosplenomegaly Extremity no clubbing, cyanosis or edema Skin no rashes or lesions noted Neuro moves all extremities and no focal motor deficits Psych Activity / Motor Behavior: restless Mood & Affect: anxious and labile affect Charges/Coding Visit Charges Inpatient E&M: 29922 Subs Hosp L3
[2022-06-04] MEDS: Furosemide 40 MG/4 ML Vial IV ×2 (08:15→18:18)
[2022-06-04] MEDS: Enoxaparin 40 MG/0.4 ML Syringe SC (08:15)
--- NOTE | 2022-06-04 11:35 | PN.HOSP_ITS ---
Subjective Subjective Extubated yesterday morning and has been maintained on nasal cannula, he has not developed any further stridor. Overnight was complicated by agitation and wanting Ativan. Apparently he stated to nursing that he has no interest in quitting drinking Objective Data Objective Data Vital Signs: Vital Signs Temp Pulse Resp BP Pulse Ox O2 Del Method O2 Flow Rate 96.6 F L 78 18 146/77 H 94 Nasal Cannula 2 06/04/22 05:00 06/04/22 08:00 06/04/22 08:00 06/04/22 08:00 06/04/22 08:00 06/04/22 09:00 06/04/22 08:00 FiO2 40 06/03/22 10:00 Oxygen Flow Rate (L/min) 2 Oxygen Delivery Method Nasal Cannula Weight: 225 lb 15.581 oz Body Mass Index (BMI) 31.5 Intake & Output: Intake and Output for Last 24 Hours 06/03/22 06/04/22 06/05/22 03:59 03:59 03:59 Intake Total 5585.95 / 5957.43 3295.30 / 3301.30 166 / 166 Output Total 4000 / 4200 5700 / 5700 400 / 400 Balance 1585.95 / 1757.43 -2404.70 / -2398.70 -234 / -234 Lab / Micro Data Result Diagrams: 06/04/22 03:55 06/04/22 03:55 Labs: Laboratory Results - last 24 hr 06/04/22 03:55: WBC 10.3, RBC 3.69 L, Hgb 13.2, Hct 38.7 L, MCV 104.9 H, MCH 3 5.8 H, MCHC 34.1, RDW Std Deviation 47.4 H, RDW Coeff of Valerio 12.1, Plt Count 419, MPV 9.6, Immature Gran % (Auto) 1.400 H, Neut % (Auto) 80.9 H, Lymph % (Auto) 11.4 L, Carson % (Auto) 5.4, Eos % (Auto) 0.1, Baso % (Auto) 0.8, Absolute Neuts (auto) 8.3 H, Absolute Lymphs (auto) 1.17, Nucleated RBC % 0 06/04/22 03:55: Sodium 139, Potassium 3.3 L, Chloride 103, Carbon Dioxide 30.0, Anion Gap 6, BUN 14, Creatinine 0.52 L, Estim Creat Clear Calc 161.67, Est GFR (MDRD) Af Amer 205, Est GFR (MDRD) Non-Af 170, BUN/Creatinine Ratio 26.7 H, Glucose 173 H, Calcium 9.1 Micro: Microbiology 05/29/22 10:05 Sputum, Induced/Lukens Gram Stain - Final 05/29/22 10:05 Sputum, Induced/Lukens Respiratory Culture - Final Presumptive C albicans 05/24/22 09:00 Blood Culture (Wb) - Anticubital Right Blood Culture - Final No growth in 5 days. 05/24/22 08:40 Blood Culture (Wb) - Other Blood Culture - Final No growth in 5 days. 05/24/22 09:20 Sputum, Induced/Lukens Gram Stain - Final 05/24/22 09:20 Sputum, Induced/Lukens Respiratory Culture - Final Escherichia coli 05/24/22 08:40 Urine Catheter - Kirk Urine Culture - Final Culture exhibits no growth. 05/19/22 19:00 Sputum, Tracheal Aspirate Gram Stain - Final 05/19/22 19:00 Sputum, Tracheal Aspirate Respiratory Culture - Final 05/19/22 09:10 Gastric Fluid/Contents Gastric Occult Blood - Final Occult Blood Positive Rhythm Strip Rhythm Strip: Sinus Rhythm Rate: 56 Ectopy: PVC(s) Physical Exam Narrative General: Sedated on Precedex, no apparent distress HEENT: Atraumatic, PERRLA, EOMI, Normocephalic Oral: Moist Mucosa Neck: Supple, No JVD Lungs: Diminished, Normal air movement, No rhonchi, No wheeze, No rales Cardiovascular: Regular rate, Regular Rhythm, Normal S1, Normal S2, No murmurs Abdomen: Soft, Non Tender, Non-Distended, No Hepato-splenomegaly Extremities: No edema, Capillary Refill Less than 3 Seconds Skin: No rashes, No breakdown Musculoskeletal: No Tenderness to Palpation of Joints or Extremities Neurological: Cranial nerves II-XII grossly intact, Motor Exam 5/5 strength throughout, Sensory exam intact to light touch and pain Psych/Mental Status: Flat affect, Appropriate Assessment & Plan Assessment/Plan (1) Fever: (2) Acute hypercapnic respiratory failure: (3) Alcoholic hepatitis: (4) Alcohol withdrawal delirium: (5) Alcohol withdrawal seizure: QUALIFIERS: Complication of substance-induced condition: with delirium Qualified Code(s): F10.931 - Alcohol use, unspecified with withdrawal delirium; R56.9 - Unspecified convulsions PLAN: Plan 1. Acute hypercapnic respiratory failure secondary to DTs and possible aspiration/E. coli pneumonia/alcoholic hepatitis ? He did have an attempted extubation which led to stridor after family discussion successfully extubated on 06/03/2022 no stridor ? She has completed the phenobarb taper ? He has completed 7 days of antibiotics for his E. coli pneumonia ? Appreciate aeronautical engineering professor assistance ? Madrey score of 23 during this admission, no need for steroids ? We will proceed with bedside swallow and since he does not want to quit drinking can provide him with beers if he is having withdrawal symptoms which would be unlikely given that he is 16 days out from admission ? We will try to wean Precedex 2. Grade D erosive esophagitis with acute gastritis and hemorrhage leading to mild anemia ? No signs of active bleeding currently he did have an EGD done on 05/21/2022 which showed the esophagitis ? We will continue with his PPI at 40 mg twice daily ? Appreciate GIs assistance ? We will continue to monitor his anemia DVT: Lovenox Charges/Coding Visit Charges Inpatient E&M: 51866 Subs Hosp L2
[2022-06-04] MEDS: Potassium Chloride IVPB 40 MEQ 100 MEQ IV BOLUS ×4 (13:55→18:17)
[2022-06-04] MEDS: QUEtiapine 100 MG Tablet GT ×2 (13:57→21:15)
[2022-06-05] VITALS (27 sets, daily range): BP systolic 87–153; BP diastolic 55–98; PULSE 85–137; RESP 15–27; TEMP 35.9–36.9; O2SAT 90–99
--- NOTE | 2022-06-05 00:53 | NURSING ---
Pt has been very disoriented all night despite nursing's attempts at reorienting and redirecting. Pt continually trying to sit up and get out of restraints. Pt not cooperative or redirectable. Restraints tightened. Current plan of care continued.
[2022-06-05 06:55] LABS: Anion Gap 7 (5-15); BUN 29 mg/dL (7-18); BUN/Creat Ratio 33.7 RATIO (10-20); Calcium,Total 9.5 mg/dL (8.5-10.1); Chloride 106 mmol/L (98-107); Creatinine, Serum 0.86 mg/dL (0.70-1.30); EST Glomerular Filtration Rate 96 mL/min (>60); Est Glom Filt Rate - Afr Amer 116 mL/min (>60); Estimated Creatinine Clearance 97.75 ml/min; Glucose 135 mg/dL (74-106); Phosphorus 5.1 mg/dL (2.5-4.9); Sodium Level 142 mmol/L (136-145)
--- NOTE | 2022-06-05 07:14 | PCM.PN.INT ---
Assessment & Plan Assessment/Plan (1) Alcohol withdrawal: (2) EMMANUEL (acute kidney injury): (3) Alcohol withdrawal delirium: (4) Alcohol withdrawal seizure: QUALIFIERS: Complication of substance-induced condition: with delirium Qualified Code(s): F10.931 - Alcohol use, unspecified with withdrawal delirium; R56.9 - Unspecified convulsions PLAN: Plan RECOMMENDATIONS: 1. Monitor off steroids, IV morphine and Ativan 2. Consider a sitter to discontinue restraints 3. Bedside swallow evaluation when appropriate 4. Consider outpatient ENT evaluation 5. Okay to initiate alcohol (beer) if able to pass a swallow eval 6. Continue appropriate DVT prophylaxis. 7. Hemodynamically stable on minimal nasal cannula. Will sign off from a critical care perspective IMPRESSIONS: 1. Acute DTs following alcohol withdrawal The patient has a history of heavy alcohol use and was amidst acute alcohol withdrawal on presentation, which has been complicated by seizures. Patient has been off alcohol for over 2 weeks. Patient should be out of withdrawal at this time. Patient is expressing that he has no intentions of quitting drinking at this time. However, patient is still significantly delirious. Monitor off morphine, Ativan and Precedex. Okay to give patient alcohol if able to pass a swallow evaluation in my opinion. Will sign off from a critical care perspective 2. Acute hypercarbic respiratory failure secondary to E. coli pneumonia The patient has now completed a 7-day treatment course of antimicrobials. He is overall net positive from a volume perspective for the hospitalization. Therefore, I agree with attempts at volume optimization with IV diuretics as tolerated by hemodynamics and renal function. Continue to wean FiO2 and PEEP to maintain oxygen saturations at or above 90%. The patient did develop postextubation stridor on the morning of May 28. Ultimately, he did have to be reintubated. Patient extubated on 06/03/2022 and no stridor was noted. Patient on minimal nasal cannula at this time. No respiratory complaints following extubation have been noted. 3. Acute blood loss anemia secondary to upper GI bleed secondary to grade D esophagitis Blood counts remain stable. Plan to continue PPI therapy per GI recommendations. 4. Rhabdomyolysis/chronic thrombocytopenia/acute kidney injury/hyperbilirubinemia Complicates care, management, recovery and prognosis. Continue supportive measures as noted above. Subjective Subjective Patient did okay overnight from a hemodynamic standpoint. Patient is on minimal nasal cannula oxygen with sleep, but is not reporting any dyspnea. Patient remains confused and impulsive, but is not showing any active signs of alcohol withdrawal. No Precedex has been required over the last 24 hours. Objective Data Objective Data Vital Signs: Vital Signs Temp Pulse Resp BP Pulse Ox O2 Del Method O2 Flow Rate 36.4 C L 112 H 18 120/98 H 95 Nasal Cannula 2 06/05/22 04:00 06/05/22 07:00 06/05/22 07:00 06/05/22 07:00 06/05/22 07:00 06/05/22 07:00 06/05/22 07:00 FiO2 50 06/04/22 14:00 Oxygen Flow Rate (L/min) 2 Oxygen Delivery Method Nasal Cannula Weight: 98.2 kg Body Mass Index (BMI) 31.5 Intake & Output: Intake and Output for Last 24 Hours 06/03/22 06/04/22 06/05/22 23:59 23:59 23:59 Intake Total 3472.17 / 3511.67 1522.80 / 1522.80 Output Total 6250 / 6750 3080 / 3130 300 / 300 Balance -2777.83 / -3238.33 -1557.20 / -1607.20 -300 / -300 Lab / Micro Data Attestation: I reviewed the patient's lab results. Result Diagrams: 06/04/22 03:55 06/05/22 06:30 Labs: Laboratory Results - last 24 hr 06/05/22 06:30: Sodium 142, Potassium 3.0 L, Chloride 106, Carbon Dioxide 29.0, Anion Gap 7, BUN 29 H, Creatinine 0.86, Estim Creat Clear Calc 97.75, Est GFR (MDRD) Af Amer 116, Est GFR (MDRD) Non-Af 96, BUN/Creatinine Ratio 33.7 H, Glucose 135 H, Calcium 9.5, Phosphorus 5.1 H, Magnesium 2.0 Micro: Microbiology 05/29/22 10:05 Sputum, Induced/Lukens Gram Stain - Final 05/29/22 10:05 Sputum, Induced/Lukens Respiratory Culture - Final Presumptive C albicans 05/24/22 09:00 Blood Culture (Wb) - Anticubital Right Blood Culture - Final No growth in 5 days. 05/24/22 08:40 Blood Culture (Wb) - Other Blood Culture - Final No growth in 5 days. 05/24/22 09:20 Sputum, Induced/Lukens Gram Stain - Final 05/24/22 09:20 Sputum, Induced/Lukens Respiratory Culture - Final Escherichia coli 05/24/22 08:40 Urine Catheter - Kirk Urine Culture - Final Culture exhibits no growth. 05/19/22 19:00 Sputum, Tracheal Aspirate Gram Stain - Final 05/19/22 19:00 Sputum, Tracheal Aspirate Respiratory Culture - Final 05/19/22 09:10 Gastric Fluid/Contents Gastric Occult Blood - Final Occult Blood Positive Rhythm Strip Rhythm Strip: Sinus Tach Rate: 109 Physical Exam Const alert Constitutional Narrative: RASS -1 to +3. 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 General Appearance: Negative for cooperative HEENT normocephalic and head/scalp atraumatic Eyes PERRL, EOMs intact bilaterally, conjunctivae normal and no scleral icterus Neck supple and no JVD Resp normal respiratory effort, no retractions and no use of accessory muscles Resp Narrative: No stridor appreciated Auscultation: Negative for rhonchi or wheezes Cardio regular rhythm, S1 normal heart sound, S2 normal heart sound and no murmurs Rate: tachycardic GI soft to palpation and non-distended; Negative for hepatosplenomegaly Extremity no clubbing, cyanosis or edema Skin no rashes or lesions noted Neuro moves all extremities and no focal motor deficits Psych Activity / Motor Behavior: restless Mood & Affect: anxious and labile affect Charges/Coding Visit Charges Inpatient E&M: 29711 Subs Hosp L2
[2022-06-05] MEDS: Potassium Chloride 20mEq/100mL 20 MEQ/100 ML IV.SOLN. 100 MEQ IV BOLUS ×2 (09:29→11:43)
[2022-06-05] MEDS: Enoxaparin 40 MG/0.4 ML Syringe SC (09:31)
[2022-06-05] MEDS: Furosemide 40 MG/4 ML Vial IV ×2 (09:31→18:14)
[2022-06-05] MEDS: QUEtiapine 100 MG Tablet GT ×2 (09:31→20:47)
--- NOTE | 2022-06-05 09:43 | PCM.PN.HOSP ---
Subjective Subjective His Ativan and Precedex were discontinued and overnight he has become more agitated and is currently in restraints Objective Data Objective Data Vital Signs: Vital Signs Temp Pulse Resp BP Pulse Ox O2 Del Method O2 Flow Rate 97.6 F L 112 H 18 120/98 H 96 Nasal Cannula 2 06/05/22 04:00 06/05/22 07:00 06/05/22 07:00 06/05/22 07:00 06/05/22 07:39 06/05/22 07:39 06/05/22 07:39 FiO2 50 06/04/22 14:00 Oxygen Flow Rate (L/min) 2 Oxygen Delivery Method Nasal Cannula Weight: 216 lb 7.903 oz Body Mass Index (BMI) 31.5 Intake & Output: Intake and Output for Last 24 Hours 06/04/22 06/05/22 06/06/22 03:59 03:59 03:59 Intake Total 3295.30 / 3301.30 1133.53 / 1133.53 0.5 / 0.5 Output Total 5700 / 5700 2630 / 2630 250 / 250 Balance -2404.70 / -2398.70 -1496.47 / -1496.47 -249.5 / -249.5 Lab / Micro Data Result Diagrams: 06/04/22 03:55 06/05/22 06:30 Labs: Laboratory Results - last 24 hr 06/05/22 06:30: Sodium 142, Potassium 3.0 L, Chloride 106, Carbon Dioxide 29.0, Anion Gap 7, BUN 29 H, Creatinine 0.86, Estim Creat Clear Calc 97.75, Est GFR (MDRD) Af Amer 116, Est GFR (MDRD) Non-Af 96, BUN/Creatinine Ratio 33.7 H, Glucose 135 H, Calcium 9.5, Phosphorus 5.1 H, Magnesium 2.0 Micro: Microbiology 05/29/22 10:05 Sputum, Induced/Lukens Gram Stain - Final 05/29/22 10:05 Sputum, Induced/Lukens Respiratory Culture - Final Presumptive C albicans 05/24/22 09:00 Blood Culture (Wb) - Anticubital Right Blood Culture - Final No growth in 5 days. 05/24/22 08:40 Blood Culture (Wb) - Other Blood Culture - Final No growth in 5 days. 05/24/22 09:20 Sputum, Induced/Lukens Gram Stain - Final 05/24/22 09:20 Sputum, Induced/Lukens Respiratory Culture - Final Escherichia coli 05/24/22 08:40 Urine Catheter - Kirk Urine Culture - Final Culture exhibits no growth. 05/19/22 19:00 Sputum, Tracheal Aspirate Gram Stain - Final 05/19/22 19:00 Sputum, Tracheal Aspirate Respiratory Culture - Final 05/19/22 09:10 Gastric Fluid/Contents Gastric Occult Blood - Final Occult Blood Positive Rhythm Strip Rhythm Strip: Sinus Tach Rate: 109 Ectopy: PVC(s) Physical Exam Narrative General: Agitated not cooperative, confused, no apparent distress HEENT: Atraumatic, PERRLA, EOMI, Normocephalic Oral: Moist Mucosa Neck: Supple, No JVD Lungs: Diminished, Normal air movement, No rhonchi, No wheeze, No rales Cardiovascular: Regular rate, Regular Rhythm, Normal S1, Normal S2, No murmurs Abdomen: Soft, Non Tender, Non-Distended, No Hepato-splenomegaly Extremities: No edema, Capillary Refill Less than 3 Seconds Skin: No rashes, No breakdown Musculoskeletal: No Tenderness to Palpation of Joints or Extremities Neurological: Cranial nerves II-XII grossly intact, Motor Exam 5/5 strength throughout, Sensory exam intact to light touch and pain Psych/Mental Status: Anxious and restless Assessment & Plan Assessment/Plan (1) Fever: (2) Acute hypercapnic respiratory failure: (3) Alcoholic hepatitis: (4) Alcohol withdrawal delirium: (5) Alcohol withdrawal seizure: QUALIFIERS: Complication of substance-induced condition: with delirium Qualified Code(s): F10.931 - Alcohol use, unspecified with withdrawal delirium; R56.9 - Unspecified convulsions PLAN: Plan 1. Acute hypercapnic respiratory failure secondary to DTs and possible aspiration/E. coli pneumonia/alcoholic hepatitis ? He did have an attempted extubation which led to stridor after family discussion successfully extubated on 06/03/2022 no stridor ? She has completed the phenobarb taper ? He has completed 7 days of antibiotics for his E. coli pneumonia ? Appreciate supervisor pipelines assistance ? Madrey score of 23 during this admission, no need for steroids ? We will proceed with bedside swallow and since he does not want to quit drinking can provide him with beers if he is having withdrawal symptoms which would be unlikely given that he is 16 days out from admission ? Still agitated likely related to DTs from his alcohol he is not going through withdrawal 17 days later but he does need to be restrained at this time unfortunately is unable to be cooperative with the outside swallow so we cannot give him any oral medication so we will continue with IV medications 2. Grade D erosive esophagitis with acute gastritis and hemorrhage leading to mild anemia ? No signs of active bleeding currently he did have an EGD done on 05/21/2022 which showed the esophagitis ? We will continue with his PPI at 40 mg twice daily ? Appreciate GIs assistance ? We will continue to monitor his anemia DVT: Lovenox Charges/Coding Visit Charges Inpatient E&M: 25541 Subs Hosp L2
[2022-06-05] MEDS: Loperamide 2 MG Capsule PO (20:48)
[2022-06-06] VITALS (17 sets, daily range): BP systolic 99–145; BP diastolic 60–113; PULSE 79–111; RESP 16–24; TEMP 36.3–37.2; O2SAT 93–99
[2022-06-06 02:27] LABS: Hematocrit 40.9 % (40-54); Hemoglobin 13.6 g/dL (13.0-16.5); Mean Corp Hgb Conc 33.3 g/dL (32-36); Mean Corpuscular Hgb 35.1 pg (27.0-32.0); Mean Corpuscular Volume 105.4 fL (80-94); Platelet Count 404 K/mm3 (150-450); RBC Distribution Width CV 12.7 % (11.6-14.6); RBC Distribution Width SD 49.6 fl (35.1-43.9); Red Blood Count 3.88 M/mm3 (4.6-6.2)
[2022-06-06 02:28] LABS: Absolute Lymphocyte Count 2.51 X10^3/uL (0.83-4.51); Basophil# 0.13 X10^3/uL; Eosinophil# 0.21 X10^3/uL; Eosinophils% 1.6 % (0-5); Lymphocyte # 2.51 X10^3/ul (0.83-4.51); Lymphocyte % 19.2 % (19-41); Mean Platelet Vol. 9.3 fl (6.2-12.0); Monocyte# 1.03 X10^3/uL; Monocyte% 7.9 % (0-10); NRBC Flagged by Analyzer 0 % (0-5); Neutrophil # 9.02 X10^3/uL (2.7-7.7); Neutrophil % 69.2 % (47-70)
[2022-06-06 02:41] LABS: Anion Gap 6 (5-15); BUN 22 mg/dL (7-18); BUN/Creat Ratio 26.9 RATIO (10-20); Calcium,Total 9.3 mg/dL (8.5-10.1); Chloride 105 mmol/L (98-107); Creatinine, Serum 0.82 mg/dL (0.70-1.30); EST Glomerular Filtration Rate 102 mL/min (>60); Est Glom Filt Rate - Afr Amer 123 mL/min (>60); Estimated Creatinine Clearance 102.52 ml/min; Glucose 124 mg/dL (74-106); Potassium 2.8 mmol/L (3.5-5.1); Sodium Level 141 mmol/L (136-145)
[2022-06-06 04:26] LABS: Magnesium 2.1 mg/dL (1.6-2.6)
--- NOTE | 2022-06-06 09:28 | PCM.PN.HOSP ---
Subjective Subjective Agitated and hallucinating still. Unable to comply in order to get a swallow evaluation for safety Objective Data Objective Data Vital Signs: Vital Signs Temp Pulse Resp BP Pulse Ox O2 Del Method O2 Flow Rate 97.4 F L 92 18 117/88 H 96 Nasal Cannula 2 06/06/22 04:00 06/06/22 08:00 06/06/22 08:00 06/06/22 08:00 06/06/22 08:00 06/06/22 08:00 06/06/22 08:00 FiO2 50 06/04/22 14:00 Oxygen Flow Rate (L/min) 2 Oxygen Delivery Method Nasal Cannula Weight: 213 lb 10.047 oz Body Mass Index (BMI) 31.5 Intake & Output: Intake and Output for Last 24 Hours 06/05/22 06/06/22 06/07/22 03:59 03:59 03:59 Intake Total 1133.53 / 1133.53 1072.95 / 1072.95 104 / 104 Output Total 2630 / 2630 1850 / 1850 125 / 125 Balance -1496.47 / -1496.47 -777.05 / -777.05 -21 / -21 Lab / Micro Data Result Diagrams: 06/06/22 02:20 06/06/22 02:20 Labs: Laboratory Results - last 24 hr 06/06/22 02:20: WBC 13.0 H, RBC 3.88 L, Hgb 13.6, Hct 40.9, MCV 105.4 H, MCH 35.1 H, MCHC 33.3, RDW Std Deviation 49.6 H, RDW Coeff of Valerio 12.7, Plt Count 404, MPV 9.3, Immature Gran % (Auto) 1.100 H, Neut % (Auto) 69.2, Lymph % (Auto) 19.2, [place] % (Auto) 7.9, Eos % (Auto) 1.6, Baso % (Auto) 1.0, Absolute Neuts (auto) 9.0 H, Absolute Lymphs (auto) 2.51, Nucleated RBC % 0 06/06/22 02:20: Sodium 141, Potassium 2.8 L, Chloride 105, Carbon Dioxide 30.0, Anion Gap 6, BUN 22 H, Creatinine 0.82, Estim Creat Clear Calc 102.52, Est GFR (MDRD) Af Amer 123, Est GFR (MDRD) Non-Af 102, BUN/Creatinine Ratio 26.9 H, Glucose 124 H, Calcium 9.3 06/06/22 02:20: Magnesium 2.1 Micro: Microbiology 05/29/22 10:05 Sputum, Induced/Lukens Gram Stain - Final 05/29/22 10:05 Sputum, Induced/Lukens Respiratory Culture - Final Presumptive C albicans 05/24/22 09:00 Blood Culture (Wb) - Anticubital Right Blood Culture - Final No growth in 5 days. 05/24/22 08:40 Blood Culture (Wb) - Other Blood Culture - Final No growth in 5 days. 05/24/22 09:20 Sputum, Induced/Lukens Gram Stain - Final 05/24/22 09:20 Sputum, Induced/Lukens Respiratory Culture - Final Escherichia coli 05/24/22 08:40 Urine Catheter - Kirk Urine Culture - Final Culture exhibits no growth. 05/19/22 19:00 Sputum, Tracheal Aspirate Gram Stain - Final 05/19/22 19:00 Sputum, Tracheal Aspirate Respiratory Culture - Final 05/19/22 09:10 Gastric Fluid/Contents Gastric Occult Blood - Final Occult Blood Positive Rhythm Strip Rhythm Strip: Sinus Tach Rate: 109 Ectopy: PVC(s) Physical Exam Narrative General: Agitated not cooperative, confused, no apparent distress HEENT: Atraumatic, PERRLA, EOMI, Normocephalic Oral: Moist Mucosa Neck: Supple, No JVD Lungs: Diminished, Normal air movement, No rhonchi, No wheeze, No rales Cardiovascular: Regular rate, Regular Rhythm, Normal S1, Normal S2, No murmurs Abdomen: Soft, Non Tender, Non-Distended, No Hepato-splenomegaly Extremities: No edema, Capillary Refill Less than 3 Seconds Skin: No rashes, No breakdown Musculoskeletal: No Tenderness to Palpation of Joints or Extremities Neurological: Cranial nerves II-XII grossly intact, Motor Exam 5/5 strength throughout, Sensory exam intact to light touch and pain Psych/Mental Status: Anxious and restless, visual hallucinations Assessment & Plan Assessment/Plan (1) Fever: (2) Acute hypercapnic respiratory failure: (3) Alcoholic hepatitis: (4) Alcohol withdrawal delirium: (5) Alcohol withdrawal seizure: QUALIFIERS: Complication of substance-induced condition: with delirium Qualified Code(s): F10.931 - Alcohol use, unspecified with withdrawal delirium; R56.9 - Unspecified convulsions PLAN: Plan 1. Acute hypercapnic respiratory failure secondary to DTs and possible aspiration/E. coli pneumonia/alcoholic hepatitis ? He did have an attempted extubation which led to stridor after family discussion successfully extubated on 06/03/2022 no stridor ? She has completed the phenobarb taper ? He has completed 7 days of antibiotics for his E. coli pneumonia ? Appreciate emergency operator assistance ? Madrey score of 23 during this admission, no need for steroids ? We will proceed with bedside swallow and since he does not want to quit drinking can provide him with beers if he is having withdrawal symptoms which would be unlikely given that he is over 2 weeks out from admission ? Still agitated likely related to DTs from his alcohol he is not going through withdrawal 17 days later but he does need to be restrained at this time unfortunately is unable to be cooperative with the outside swallow so we cannot give him any oral medication so we will continue with IV medications ? She has been managing to tolerate 100 of Seroquel twice daily ?We will consult crisis for possible mental health placement given his derangements from alcohol 2. Grade D erosive esophagitis with acute gastritis and hemorrhage leading to mild anemia ? No signs of active bleeding currently he did have an EGD done on 05/21/2022 which showed the esophagitis ? We will continue with his PPI at 40 mg twice daily ? Appreciate GIs assistance ? We will continue to monitor his anemia DVT: Lovenox Charges/Coding Visit Charges Inpatient E&M: 04113 Subs Hosp L2
[2022-06-06 09:46] LABS: Phosphorus 3.5 mg/dL (2.5-4.9)
[2022-06-06] MEDS: Furosemide 40 MG/4 ML Vial IV ×2 (10:39→18:08)
[2022-06-06] MEDS: QUEtiapine 100 MG Tablet GT (10:39)
[2022-06-06] MEDS: Enoxaparin 40 MG/0.4 ML Syringe SC (10:40)
[2022-06-06] MEDS: Potassium Chloride 10mEq/100mL 10 MEQ/100 ML IV.SOLN. 100 MEQ IV BOLUS ×4 (10:40→14:57)
[2022-06-06] MEDS: 0.9% Saline Lock 10 ML Syringe IV (18:08)
--- NOTE | 2022-06-06 22:02 | NURSING ---
attempted to educate patient on the medications ordered for him and their importance. Pt still refused medications
[2022-06-07 02:00] VITALS: BP 111/78; PULSE 97; RESP 24; TEMP 36.8; O2SAT 97
[2022-06-07 07:25] VITALS: BP 103/63; PULSE 62; RESP 16; TEMP 36.8; O2SAT 94
[2022-06-07] MEDS: Enoxaparin 40 MG/0.4 ML Syringe SC (09:15)
[2022-06-07] MEDS: Furosemide 40 MG/4 ML Vial IV ×2 (09:16→17:39)
[2022-06-07] MEDS: QUEtiapine 25 MG Tablet PO ×2 (09:16→17:39)
--- NOTE | 2022-06-07 09:44 | PN.HOSP_ITS ---
Subjective Subjective Agitated again overnight and was refusing his medications. He continues to hallucinate Objective Data Objective Data Vital Signs: Vital Signs Temp Pulse Resp BP Pulse Ox O2 Del Method O2 Flow Rate 98.2 F 62 16 103/63 94 Room Air 2 06/07/22 07:25 06/07/22 07:25 06/07/22 07:25 06/07/22 07:25 06/07/22 07:25 06/07/22 07:25 06/06/22 13:33 FiO2 50 06/04/22 14:00 Oxygen Flow Rate (L/min) 2 Oxygen Delivery Method Room Air Weight: 211 lb 10.3 oz Body Mass Index (BMI) 31.5 Intake & Output: Intake and Output for Last 24 Hours 06/06/22 06/07/22 06/08/22 03:59 03:59 03:59 Intake Total 1072.95 / 1072.95 1454.2 / 1454.2 Output Total 1850 / 1850 1550 / 1550 0 / 0 Balance -777.05 / -777.05 -95.8 / -95.8 0 / 0 Lab / Micro Data Result Diagrams: 06/06/22 02:20 06/06/22 02:20 Labs: Laboratory Results - last 24 hr 06/06/22 02:20: Phosphorus 3.5 Micro: Microbiology 05/29/22 10:05 Sputum, Induced/Lukens Gram Stain - Final 05/29/22 10:05 Sputum, Induced/Lukens Respiratory Culture - Final Presumptive C albicans 05/24/22 09:00 Blood Culture (Wb) - Anticubital Right Blood Culture - Final No growth in 5 days. 05/24/22 08:40 Blood Culture (Wb) - Other Blood Culture - Final No growth in 5 days. 05/24/22 09:20 Sputum, Induced/Lukens Gram Stain - Final 05/24/22 09:20 Sputum, Induced/Lukens Respiratory Culture - Final Escherichia coli 05/24/22 08:40 Urine Catheter - Kirk Urine Culture - Final Culture exhibits no growth. 05/19/22 19:00 Sputum, Tracheal Aspirate Gram Stain - Final 05/19/22 19:00 Sputum, Tracheal Aspirate Respiratory Culture - Final 05/19/22 09:10 Gastric Fluid/Contents Gastric Occult Blood - Final Occult Blood Positive Rhythm Strip Rhythm Strip: Sinus Tach Rate: 109 Ectopy: PVC(s) Physical Exam Narrative General: Agitated not cooperative, confused, no apparent distress HEENT: Atraumatic, PERRLA, EOMI, Normocephalic Oral: Moist Mucosa Neck: Supple, No JVD Lungs: Diminished, Normal air movement, No rhonchi, No wheeze, No rales Cardiovascular: Regular rate, Regular Rhythm, Normal S1, Normal S2, No murmurs Abdomen: Soft, Non Tender, Non-Distended, No Hepato-splenomegaly Extremities: No edema, Capillary Refill Less than 3 Seconds Skin: No rashes, No breakdown Musculoskeletal: No Tenderness to Palpation of Joints or Extremities Neurological: Cranial nerves II-XII grossly intact, Motor Exam 5/5 strength throughout, Sensory exam intact to light touch and pain Psych/Mental Status: Anxious and restless, visual hallucinations Assessment & Plan Assessment/Plan (1) Fever: (2) Acute hypercapnic respiratory failure: (3) Alcoholic hepatitis: (4) Alcohol withdrawal delirium: (5) Alcohol withdrawal seizure: QUALIFIERS: Complication of substance-induced condition: with delirium Qualified Code(s): F10.931 - Alcohol use, unspecified with withdrawal delirium; R56.9 - Unspecified convulsions PLAN: Plan 1. Acute hypercapnic respiratory failure secondary to DTs and possible aspiration/E. coli pneumonia/alcoholic hepatitis ? He did have an attempted extubation which led to stridor after family discussion successfully extubated on 06/03/2022 no stridor ? She has completed the phenobarb taper ? He has completed 7 days of antibiotics for his E. coli pneumonia ? Madrey score of 23 during this admission, no need for steroids ? We will proceed with bedside swallow and since he does not want to quit kimberly christina can provide him with beers if he is having withdrawal symptoms which would be unlikely given that he is over 2 weeks out from admission ? Still agitated likely related to DTs from his alcohol he is not going through withdrawal 19 days later ? We will continue with Seroquel but transition it to 200 mg at night as well as 10 mg of melatonin and will give him 25 mg p.o. twice daily of Seroquel as needed ? Also check an EEG to see if he is having seizures ? Despite his hallucinations and his obvious delirium crisis did not feel that he would need to be admitted to a mental health facility 2. Grade D erosive esophagitis with acute gastritis and hemorrhage leading to mild anemia ? No signs of active bleeding currently he did have an EGD done on 05/21/2022 which showed the esophagitis ? We will continue with his PPI at 40 mg twice daily ? Appreciate GIs assistance ? We will continue to monitor his anemia DVT: Lovenox Charges/Coding Visit Charges Inpatient E&M: 25533 Subs Hosp L2
--- NOTE | 2022-06-07 10:00 | CPS ---
EEG not done at this time.Patient confused, combative at times.Will attempt to do test if patient status improves.RN aware.
[2022-06-07 11:11] LABS: Absolute Lymphocyte Count 2.17 X10^3/uL (0.83-4.51); Absolute Neutrophil Count 9.3 X10^3/uL (2.0-7.7); Basophil% 0.8 % (0-1); Eosinophil# 0.53 X10^3/uL; Eosinophils% 4.1 % (0-5); Hematocrit 38.9 % (40-54); Hemoglobin 13.1 g/dL (13.0-16.5); Lymphocyte # 2.17 X10^3/ul (0.83-4.51); Lymphocyte % 16.7 % (19-41); Mean Corp Hgb Conc 33.7 g/dL (32-36); Mean Corpuscular Hgb 34.9 pg (27.0-32.0); Mean Corpuscular Volume 103.7 fL (80-94); Mean Platelet Vol. 9.6 fl (6.2-12.0); Monocyte# 0.86 X10^3/uL; Monocyte% 6.6 % (0-10); NRBC Flagged by Analyzer 0 % (0-5); Neutrophil # 9.26 X10^3/uL (2.7-7.7); Platelet Count 320 K/mm3 (150-450); RBC Distribution Width CV 12.4 % (11.6-14.6); Red Blood Count 3.75 M/mm3 (4.6-6.2)
[2022-06-07 11:27] LABS: ALB/GLOB Ratio 0.8 RATIO (0.9-2.4); AST(SGOT) 23 U/L (15-37); Alanine Aminotransfer ALT/SGPT 53 U/L (16-61); Albumin, Serum 2.9 g/dL (3.2-5.0); Alkaline Phosphatase 80 U/L (45-117); Anion Gap 6 (5-15); BUN 18 mg/dL (7-18); BUN/Creat Ratio 26.8 RATIO (10-20); Bilirubin, Direct 0.47 mg/dL (0.00-0.30); Calcium,Total 8.8 mg/dL (8.5-10.1); Chloride 102 mmol/L (98-107); Creatinine, Serum 0.67 mg/dL (0.70-1.30); EST Glomerular Filtration Rate 128 mL/min (>60); Est Glom Filt Rate - Afr Amer 154 mL/min (>60); Estimated Creatinine Clearance 125.47 ml/min; Globulin 3.6 g/dL (2.2-4.2); Glucose 118 mg/dL (74-106); Protein, Total 6.5 g/dL (6.4-8.2); Sodium Level 137 mmol/L (136-145)
[2022-06-07 12:40] VITALS: BP 101/62; PULSE 79; RESP 18; TEMP 36.8; O2SAT 96
[2022-06-07] MEDS: Potassium Chloride 20mEq/100mL 20 MEQ/100 ML IV.SOLN. 50 MEQ IV BOLUS ×2 (12:42→15:23)
[2022-06-07 15:38] VITALS: O2SAT 99
[2022-06-07 16:47] VITALS: BP 120/59; PULSE 68; RESP 20; TEMP 36.1; O2SAT 98
[2022-06-07] MEDS: 0.9% Saline Lock 10 ML Syringe IV (17:39)
[2022-06-07 22:00] VITALS: BP 115/64; PULSE 72; RESP 18; TEMP 36.6; O2SAT 98
[2022-06-07] MEDS: QUEtiapine 100 MG Tablet 200 MG GT (22:38)
[2022-06-07] MEDS: MELATONIN 10 MG TABLET PO (22:38)
[2022-06-08 03:45] VITALS: BP 121/63; PULSE 72; RESP 18; TEMP 36.6; O2SAT 96
[2022-06-08 06:23] LABS: Absolute Lymphocyte Count 2.53 X10^3/uL (0.83-4.51); Absolute Neutrophil Count 7.3 X10^3/uL (2.0-7.7); Basophil# 0.06 X10^3/uL; Basophil% 0.5 % (0-1); Eosinophil# 0.66 X10^3/uL; Eosinophils% 5.8 % (0-5); Hematocrit 38.4 % (40-54); Hemoglobin 13.4 g/dL (13.0-16.5); Lymphocyte # 2.53 X10^3/ul (0.83-4.51); Lymphocyte % 22.3 % (19-41); Mean Corp Hgb Conc 34.9 g/dL (32-36); Mean Corpuscular Hgb 35.8 pg (27.0-32.0); Mean Corpuscular Volume 102.7 fL (80-94); Monocyte# 0.73 X10^3/uL; Monocyte% 6.4 % (0-10); NRBC Flagged by Analyzer 0 % (0-5); Neutrophil # 7.34 X10^3/uL (2.7-7.7); Neutrophil % 64.6 % (47-70); Platelet Count 248 K/mm3 (150-450); RBC Distribution Width CV 12.4 % (11.6-14.6); RBC Distribution Width SD 46.6 fl (35.1-43.9); Red Blood Count 3.74 M/mm3 (4.6-6.2); White Blood Count 11.4 K/mm3 (4.4-11.0)
[2022-06-08 07:06] LABS: Anion Gap 10 (5-15); BUN 19 mg/dL (7-18); BUN/Creat Ratio 27.6 RATIO (10-20); Chloride 99 mmol/L (98-107); Creatinine, Serum 0.69 mg/dL (0.70-1.30); EST Glomerular Filtration Rate 124 mL/min (>60); Est Glom Filt Rate - Afr Amer 150 mL/min (>60); Estimated Creatinine Clearance 121.84 ml/min; Glucose 96 mg/dL (74-106); Potassium 2.7 mmol/L (3.5-5.1); Sodium Level 135 mmol/L (136-145)
[2022-06-08] MEDS: Furosemide 40 MG/4 ML Vial IV (09:03)
[2022-06-08] MEDS: Enoxaparin 40 MG/0.4 ML Syringe SC (09:03)
[2022-06-08] MEDS: Potassium Chloride Oral Soln 20 MEQ/15 ML UDC 60 MEQ PO (09:04)
[2022-06-08 09:30] VITALS: BP 124/62; PULSE 76; RESP 16; TEMP 36.7; O2SAT 98
--- NOTE | 2022-06-08 11:38 | ADDICTION ---
This adjusto writer operator met with PT to conduct ASAM, MSE, AUDIT, DUDIT assessments and to plan for d/c. PT A+Ox4 and participated actively. All assessments completed, faxed to [facility] and placed in PT's chart. PT plans to f/u with individual counselor at [facility] for outpatient treatment services. PT did not indicate a need for transportation post d/c from [facility].
--- NOTE | 2022-06-08 14:54 | PCM.DC.SUM ---
Providers Date of Admission: 05/19/22 Date of Discharge: 06/08/22 Primary Care Physician: Dr. Adalberto Daniel MD Consultations 05/19/22 22:10 Consult: Gastroenterology Routine Consulting Provider: Wayne Sam Reason for Consult: Coffe ground emesis EMERGENT Consult: No Notified: Yes Date Notified: 05/20/22 Time Notified: 09:34 Method of Notification: Text Consult: Quality Assurance Supervisor Trim / Pulmonary Medicine Routine Consulting Provider: Sudheer Joy Reason for Consult: Alcohol withdrawal seizure EMERGENT Consult: No Notified: Yes Date Notified: 05/19/22 Time Notified: 21:02 Method of Notification: Text 05/24/22 20:29 Consult: General Surgery Routine Consulting Provider: Yolanda Garcia Reason for Consult: LARGE INGUINAL HERNIA W/REDUCED BOWEL SOUNDS EMERGENT Consult: No Notified: Yes Date Notified: 05/24/22 Time Notified: 20:29 Method of Notification: Verbal Reason For Visit: ALCOHOL WITHDRAWAL SEIZURES; ACUTE ENCEPHALOPATHY Diagnosis Discharge Diagnosis (1) Fever: Status: Acute Code(s): R50.9 - Fever, unspecified (2) Acute hypercapnic respiratory failure: Status: Acute Code(s): J96.02 - Acute respiratory failure with hypercapnia (3) Alcoholic hepatitis: Status: Acute Code(s): K70.10 - Alcoholic hepatitis without ascites (4) Alcohol withdrawal delirium: Status: Acute Code(s): F10.931 - Alcohol use, unspecified with withdrawal delirium (5) Alcohol withdrawal seizure: Status: Acute Code(s): F10.939 - Alcohol use, unspecified with withdrawal, unspecified; R56.9 - Unspecified convulsions Qualifiers: Complication of substance-induced condition: with delirium Qualified Code(s): F10.931 - Alcohol use, unspecified with withdrawal delirium; R56.9 - Unspecified convulsions Medications at Discharge Home Medications aspirin 81 mg tablet,delayed release (Adult Low Dose Aspirin) 81 mg PO DAILY Check with primary doctor 07/04/19 pantoprazole 40 mg tablet,delayed release (Protonix) 40 mg PO DAILY #60 tabs 06/08/22 quetiapine 100 mg tablet 200 mg G-tube QHS #30 tabs 06/08/22 sucralfate 1 gram tablet (Carafate) 1 g PO Q6H #120 tabs 06/08/22 Hospital Course Operations None Procedures Electroencephalogram, EGD, Intubation (x2), PICC line placement and - (CT abdomen/pelvis) Summary of Care Provided Minutes Spent on Discharge: 45 Hospital Course: /Alcoholism *Shimon is a 62-year-old white male who reported to the emergency department on 05/19/2022 after having 3 falls at home. He was living at home and presented with his mother who is 85 years old. He has a history of alcoholism. The patient initially refused to come to the hospital after his first 2 falls however with his third fall he was found facedown in stool and vomitus and was subsequently brought to the emergency department by paramedics. It was reported he evidently fell out of bed and was seizing. He was given Ativan and intubated for airway protection. He was placed on propofol and Versed and found to have coffee-ground emesis. At that time he was started on a Protonix drip. His CPK was elevated and is found to have marked hypokalemia. In the ER, patient was afebrile, but tachycardic at 148 bpm.? Patient was hypertensive and saturating well on room air.? Laboratory work-up showed a white blood cell count of 7.5 with a hemoglobin of 14.2.? Initial chemistries did show a sodium of 132, potassium of 2.8 and a bicarbonate of 18.? Creatinine was elevated at 1.4 with a glucose of 184.? Total bili was elevated at 2.6 and alcohol level was noted to be 5.? UA did have bacteria, but no significant white blood cells.? Patient reportedly became agitated after coming back from CT scan.? Patient had an episode of generalized tonic-clonic activity and sonorous respirations following.? Patient had received Ativan for DTs, but the decision was made to intubate the patient following etomidate and rocuronium.? NG was suggestive of coffee-ground secretions.? Patient was placed on Unasyn secondary to concerns for aspiration.? An ABG obtained after intubation showed a respiratory acidosis with increased AA gradient. He had significant agitation throughout his hospital course and required heavy sedation with the addition of phenobarbital. He was placed on thiamine and folate. He had a complicated overall course developing a GI bleed for which an EGD was performed on 05/21/2022. EGD showed severe erosive esophagitis that was treated with heater probe, acute gastritis with hemorrhage that was treated with heater probe and a normal small bowel to the jejunum. He was placed on Protonix IV 80 mg twice daily initially and eventually transition to 40 mg p.o. twice daily once oral intake was initiated. He was noted to have a large inguinal hernia that evidently was chronic. He was evaluated by general surgery during his hospital course and there is no signs of obstruction or gangrene. CTs were reviewed by general surgery and appear to be stable since 2019. They felt that the patient could follow-up as an outpatient after discharge for possible outpatient hernia repair. Referral to Dr. Garcia was made at the time of discharge to be evaluated for outpatient follow-up for this. A PICC line was placed during his hospital course and removed prior to discharge. He developed a E. coli pneumonia while hospitalized completed and antibiotic course. Extubation attempt was performed on 05/28/2022 after he appeared to be out of significant alcohol withdrawal and post extubation he developed stridor so he was reintubated and placed on steroids. Family meeting was held on 06/02/2022 with his mother and she decided that he would not want to have a trach therefore he was extubated and actually did quite well despite not having a cuff leak at the time of extubation. By the time of discharge she had been weaned to room air and was stable. His hemoglobin stabilized and was in the 12-13 range prior to discharge. He did have evidence of alcoholic hepatitis at the time of admission however his Madrey score was low and he never required steroid therapy. He had thrombocytopenia at the time of admission which had resolved prior to discharge. This is likely related to splenic sequestration and toxicity from alcohol to bone marrow. He had significant electrolyte abnormalities which overall had improved dramatically. On the day of discharge his potassium was 2.7 he was aggressively replaced with a repeat potassium noted to be. He was ambulating independently without any issues. He was seen by speech therapy and was tolerating a regular diet prior to discharge. We did send him home on Carafate 4 times daily as well as Protonix 40 mg p.o. twice daily and instructed him to follow-up with gastroenterology within the next month to follow-up for his gastritis and esophagitis. This was likely related to his severe alcoholism. He was evaluated by [facility] and given information with regards to follow-up and an outpatient follow-up was made for him to be seen at [facility] on the week of discharge. Continued alcohol cessation was extensively discussed with the patient prior to discharge. Patient was able to be discharged home in stable condition with prescriptions for Protonix, Seroquel, and Carafate on 06/08/2022. He needed no services at discharge and again was recommended follow-up with his primary care physician within the next 1 to 2 weeks, general surgery within the next month, gastroenterology within the next month as well. Discharge diagnoses: Acute hypercapnic respiratory failure-resolved Acute alcohol withdrawal with DTs-resolved Alcohol withdrawal seizure-resolved E. coli pneumonia-resolved Grade D erosive esophagitis Acute gastritis Mild anemia-stable Alcoholic hepatitis-resolved Chronic thrombocytopenia-resolved Hypokalemia-repleted Hypomagnesemia-resolved Hypophosphatemia-resolved Delirium/hallucinations-resolved Alcohol abuse/alcoholism Tobacco abuse Physical Exam Narrative Patient states he is feeling very well and anxious to go home. He ate a diet this morning without any difficulties. Const alert, oriented x3 and no apparent distress Constitutional Narrative: Overweight upper middle-aged white male sitting up in chair at bedside, alert and oriented x3, conversation is appropriate and nontoxic appearing General Appearance: cooperative, comfortable, well kempt, well developed, intubated and patient mechanically ventilated Orientation / Consciousness: awake, oriented to person, oriented to place and oriented to time Exam Limitations: no limitations Nutritional Appearance: overweight HEENT normocephalic, head/scalp atraumatic, hearing grossly normal bilaterally and moist oral mucous membranes HEENT Narrative: Mallampati is 3, no thrush, dentition is fair Eyes PERRL, EOMs intact bilaterally and conjunctivae normal Eyes Narrative: No scleral icterus, right pupil is abnormal from previous injury, left pupil is reactive Neck no lymphadenopathy, supple and no JVD Neck Narrative: Acute midline, no thyroid enlargement Resp normal respiratory effort, no retractions, no use of accessory muscles and clear to auscultation bilaterally Resp Narrative: Diminished diffusely but clear Auscultation: wheezes; Negative for crackles or rhonchi Cardio regular rate, regular rhythm, S1 normal heart sound, S2 normal heart sound, no murmurs, no rub, no gallops and no clicks GI normal to inspection, nondistended, normoactive bowel sounds, soft to palpation, non-tender and non-distended; Negative for hepatosplenomegaly Extremity normal to inspection and no clubbing, cyanosis or edema Extremity Narrative: 2+ pedal pulses Skin no rashes or lesions noted, no wounds, skin turgor normal and no jaundice Skin Narrative: Pick right upper extremity-clean and dry Neuro oriented x3, CN's II-XII intact bilaterally, moves all extremities, no focal motor deficits and no sensory deficits noted Neuro Narrative: Mild generalized weakness but no focal deficits patient ambulating without assistance Sensorium / Orientation: sedated on vent Speech: speech normal Psych affect normal Psych Narrative: Appropriately interactive, no hallucinations Weight / BMI Weight Weight: 96 kg Body Mass Index (BMI) 31.5 ABG / Lab / Microbiology Data Result Diagrams: 06/08/22 05:00 06/08/22 05:00 Laboratory: Laboratory Results - last 24 hr 06/08/22 05:00: WBC 11.4 H, RBC 3.74 L, Hgb 13.4, Hct 38.4 L, MCV 102.7 H, MCH 35.8 H, MCHC 34.9, RDW Std Deviation 46.6 H, RDW Coeff of Valerio 12.4, Plt Count 248, MPV 10.0, Immature Gran % (Auto) 0.400, Neut % (Auto) 64.6, Lymph % (Auto) 22.3, [place] % (Auto) 6.4, Eos % (Auto) 5.8 H, Baso % (Auto) 0.5, Absolute Neuts (auto) 7.3, Absolute Lymphs (auto) 2.53, Nucleated RBC % 0 06/08/22 05:00: Sodium 135 L, Potassium 2.7 L*, Chloride 99, Carbon Dioxide 26.0, Anion Gap 10, BUN 19 H, Creatinine 0.69 L, Estim Creat Clear Calc 121.84, Est GFR (MDRD) Af Amer 150, Est GFR (MDRD) Non-Af 124, BUN/Creatinine Ratio 27.6 H, Glucose 96, Calcium 9.0 Microbiology: Microbiology 05/29/22 10:05 Sputum, Induced/Lukens Gram Stain - Final 05/29/22 10:05 Sputum, Induced/Lukens Respiratory Culture - Final Presumptive C albicans 05/24/22 09:00 Blood Culture (Wb) - Anticubital Right Blood Culture - Final No growth in 5 days. 05/24/22 08:40 Blood Culture (Wb) - Other Blood Culture - Final No growth in 5 days. 05/24/22 09:20 Sputum, Induced/Lukens Gram Stain - Final 05/24/22 09:20 Sputum, Induced/Lukens Respiratory Culture - Final Escherichia coli 05/24/22 08:40 Urine Catheter - Kirk Urine Culture - Final Culture exhibits no growth. 05/19/22 19:00 Sputum, Tracheal Aspirate Gram Stain - Final 05/19/22 19:00 Sputum, Tracheal Aspirate Respiratory Culture - Final 05/19/22 09:10 Gastric Fluid/Contents Gastric Occult Blood - Final Occult Blood Positive D/C Instructions Discharge Diet: No restrictions Discharge Activity: Return to Normal Activity Return to work on: 06/12/22 Meaningful Use Info Meaningful Use Diagnoses (Choose all that apply): None applicable Discharge Plan Admission Admit Date/Time: 05/19/22 20:32 Primary Reason for Your Visit: Fall Attending Provider: Keyla Blackmon Primary Care Provider: Adalberto Daniel Consulting Providers: Jacobo Galeana ; Aleisha Sam ; Keyla Blackmon ; Xi Cason ; Wayne Sam ; Yolanda Garcia ; Sudheer Joy ; Alejo Clifton Instructions Additional Instructions / Restrictions: Appointment with [facility] on June 11 at 2:00pm. Discharge Orders/Prescriptions Prescriptions: New pantoprazole [Protonix] 40 mg tablet,delayed release (DR/EC) 40 mg PO DAILY Qty: 60 2RF sucralfate [Carafate] 1 gram tablet 1 g PO Q6H Qty: 120 1RF quetiapine 100 mg Tablet 200 mg G-tube QHS Qty: 30 0RF Continued aspirin [Adult Low Dose Aspirin] 81 mg tablet,delayed release (DR/EC) 81 mg PO DAILY Discontinued lansoprazole [Prevacid] 15 mg capsule,delayed release(DR/EC) 15 mg PO DAILY PRN (Reason: Pain 1-10 Or Fever) Referrals / Follow Up: Adalberto Daniel MD [Primary Care Provider] - Within 2 Weeks Wayne Sam DO [Med Staff - Active Staff] - See Referral Note (Call tomorrow for a hospital follow-up appointment) Yolanda Garcia MD [Med Staff - Active Staff] - Within 1 Month (For hernia--> call for appt) Disposition Disposition (needs filled in before D/C Order can be placed): Home, Self Care Charges/Coding Visit Charges Inpatient E&M: 90280 Disch Hosp
[2022-06-08 15:22] VITALS: O2SAT 98
[2022-06-08 15:39] VITALS: BP 120/67; PULSE 80; RESP 15; TEMP 36.6; O2SAT 98
[2022-06-08 16:04] LABS: Anion Gap 7 (5-15); BUN 20 mg/dL (7-18); BUN/Creat Ratio 23.7 RATIO (10-20); Calcium,Total 9.3 mg/dL (8.5-10.1); Chloride 99 mmol/L (98-107); Creatinine, Serum 0.84 mg/dL (0.70-1.30); EST Glomerular Filtration Rate 98 mL/min (>60); Est Glom Filt Rate - Afr Amer 118 mL/min (>60); Estimated Creatinine Clearance 100.08 ml/min; Glucose 120 mg/dL (74-106); Sodium Level 130 mmol/L (136-145)
== END 2022-06-08 17:00 | disposition home or self-care (01) | DRG 775 ==
LOC: ED 16:00 → ICU 20:59 → MS3 06-07 17:35
PROVIDERS: Family Medicine; Internal Medicine; Internal Medicine Critical Care Medicine; Internal Medicine Gastroenterology; Internal Medicine Pulmonary Disease; Student in an Organized Health Care Education/Training Program; Admitting Provider Hospitalist; Emergency Provider Emergency Medicine; PCP Family Medicine; Visit Provider Internal Medicine
PROC: 0DJ08ZZ Inspection of Upper Intestinal Tract, Via Natural or Artificial Opening Endoscopic (ICD-10-PCS; CPT 43235; principal; 2022-05-21 11:25)
DX: F10.231 Alcohol dependence with withdrawal delirium (principal); J69.0 Pneumonitis due to inhalation of food and vomit; J96.01 Acute respiratory failure with hypoxia; J15.5 Pneumonia due to Escherichia coli; R56.9 Unspecified convulsions; K29.01 Acute gastritis with bleeding; J96.02 Acute respiratory failure with hypercapnia; N17.9 Acute kidney failure, unspecified; K20.91 Esophagitis, unspecified with bleeding; K70.9 Alcoholic liver disease, unspecified; D69.6 Thrombocytopenia, unspecified; F10.229 Alcohol dependence with intoxication, unspecified; D62 Acute posthemorrhagic anemia; E83.39 Other disorders of phosphorus metabolism; K70.10 Alcoholic hepatitis without ascites; M62.82 Rhabdomyolysis; E87.1 Hypo-osmolality and hyponatremia; F17.210 Nicotine dependence, cigarettes, uncomplicated; I25.10 Atherosclerotic heart disease of native coronary artery without angina pectoris; E87.6 Hypokalemia; I10 Essential (primary) hypertension; D50.9 Iron deficiency anemia, unspecified; K21.00 Gastro-esophageal reflux disease with esophagitis, without bleeding; F41.9 Anxiety disorder, unspecified; I25.2 Old myocardial infarction; K40.90 Unilateral inguinal hernia, without obstruction or gangrene, not specified as recurrent; R11.10 Vomiting, unspecified; E87.29 Other acidosis; Z79.82 Long term (current) use of aspirin; Z86.718 Personal history of other venous thrombosis and embolism; Z86.73 Personal history of transient ischemic attack (TIA), and cerebral infarction without residual deficits; Z91.81 History of falling; R29.6 Repeated falls; E66.9 Obesity, unspecified
CPT/HCPCS: 31500; 31720; 36415; 36569; 36600; 51702; 70450; 71045; 74018; 74177; 80048; 80053; 80202; 80307; 81001; 82077; 82248; 82271; 82550; 82803; 83690; 83735; 84100; 84478; 84484; 85025; 87040; 87070; 87077; 87086; 87186; 87205; 92507; 92526; 92610; 93005; 94002; 94003; 94640; 94762; 95819; 96372; 96374; 97802; 97803; 99251; 99284; 99285; J7030; J7040; J7050; Q9967; A4216; C1751; G0463; J0295; J1940; J3010; J3490

== ENCOUNTER → 2022-11-30 | Outpatient (CLI) | payer MEDICAID, SELFPAY ==
[2022-11-30 07:08] LABS: Absolute Lymphocyte Count 2.22 X10^3/uL (0.83-4.51); Basophil# 0.05 X10^3/uL; Basophil% 0.8 % (0-1); Eosinophil# 0.22 X10^3/uL; Eosinophils% 3.6 % (0-5); Hematocrit 44.1 % (40-54); Hemoglobin 15.7 g/dL (13.0-16.5); Lymphocyte # 2.22 X10^3/ul (0.83-4.51); Lymphocyte % 36.2 % (19-41); Mean Corp Hgb Conc 35.6 g/dL (32-36); Mean Corpuscular Volume 98.2 fL (80-94); Mean Platelet Vol. 9.3 fl (6.2-12.0); Monocyte# 0.57 X10^3/uL; Monocyte% 9.3 % (0-10); NRBC Flagged by Analyzer 0 % (0-5); Neutrophil # 3.04 X10^3/uL (2.7-7.7); Neutrophil % 49.6 % (47-70); Platelet Count 182 K/mm3 (150-450); RBC Distribution Width CV 13.1 % (11.6-14.6); RBC Distribution Width SD 46.6 fl (35.1-43.9); Red Blood Count 4.49 M/mm3 (4.6-6.2); White Blood Count 6.1 K/mm3 (4.4-11.0)
[2022-11-30 07:28] LABS: AST(SGOT) 9 U/L (15-37); Alanine Aminotransfer ALT/SGPT 17 U/L (16-61); Albumin, Serum 3.7 g/dL (3.2-5.0); Alkaline Phosphatase 107 U/L (45-117); Anion Gap 7 (5-15); BUN 9 mg/dL (7-18); BUN/Creat Ratio 12.6 RATIO (10-20); Chloride 107 mmol/L (98-107); Cholesterol 130 mg/dL (200); Creatinine, Serum 0.72 mg/dL (0.70-1.30); EST Glomerular Filtration Rate 118 mL/min (>60); Est Glom Filt Rate - Afr Amer 143 mL/min (>60); Free T3 2.9 pg/mL (2.18-3.98); Globulin 3.7 g/dL (2.2-4.2); Glucose 91 mg/dL (74-106); High Density Lipoprotein 40 mg/dL; PSA,Total - Annual Screen 2.23 ng/mL (0.00-4.00); Potassium 3.4 mmol/L (3.5-5.1); Protein, Total 7.4 g/dL (6.4-8.2); Sodium Level 140 mmol/L (136-145); T4 Free Direct 0.89 ng/dL (0.76-1.46); Thyroid Stim Hormone (TSH) 2.52 uIU/mL (0.358-3.74); Triglycerides 229 mg/dL; Very Low Density Lipoprotein 46 mg/dL (5-40)
[2022-11-30 07:43] LABS: Hemoglobin A1c 4.2 % (3.8-5.6)
[2022-11-30 08:07] LABS: Vitamin B12 224 pg/mL (211-911); Vitamin D,25 Hydroxy 28.4 ng/mL
== END | disposition home or self-care (01) ==
LOC: LAB 06:09
PROVIDERS: PCP Internal Medicine; Referring Provider Internal Medicine; Visit Provider Internal Medicine
DX: I25.10 Atherosclerotic heart disease of native coronary artery without angina pectoris (principal); I25.2 Old myocardial infarction; K40.20 Bilateral inguinal hernia, without obstruction or gangrene, not specified as recurrent; R73.9 Hyperglycemia, unspecified; Z13.220 Encounter for screening for lipoid disorders; Z12.5 Encounter for screening for malignant neoplasm of prostate; E53.8 Deficiency of other specified B group vitamins; E55.9 Vitamin D deficiency, unspecified
CPT/HCPCS: 84153; 36415; 80053; 80061; 82306; 82607; 83036; 84439; 84443; 84481; 85025; G0103

== ENCOUNTER 2023-03-31 18:29 | Emergency (ER) | payer MEDICAID, SELFPAY ==
[2023-03-31 18:30] VITALS: PULSE 118; RESP 16; TEMP 35.7; O2SAT 95; BMI 21.6
[2023-03-31 18:38] VITALS: BP 154/100
--- NOTE | 2023-03-31 18:38 | CT_ITS ---
STUDY: CT CERVICAL SPINE WITHOUT CONTRAST REASON FOR EXAM: Male, 62 years old. trauma RADIATION DOSAGE (If Supplied By Facility): CTDIvol = ( 26.05 ) mGy, DLP = ( 613.33 ) mGycm TECHNIQUE: High resolution transaxial imaging was performed without contrast material. Sagittal and coronal images were reconstructed. Individualized dose optimization techniques were used for this CT. COMPARISON: 12/11/2021 FINDINGS: Normal craniovertebral junction. There are degenerative changes of the anterior atlantoaxial articulation. Normal odontoid process. Normal cervical lordosis. Normal vertebral bodies and posterior osseous elements. C2-3: Normal endplates. Normal disc height and morphology. Normal central canal and intervertebral neuroforamina. C3-4: Mild left facet hypertrophy produces mild left neural foraminal stenosis. Right uncovertebral joint hypertrophy produces mild right neural foraminal stenosis. Mild central spinal stenosis. C4-5: Mild right facet hypertrophy produces mild right neural foraminal stenosis. No central spinal stenosis. C5-6: Mild broad disc osteophyte complex produces mild spinal stenosis. No neural foraminal stenosis. C6-7: Mild broad disc osteophyte complex produces mild spinal stenosis. No neural foraminal stenosis. C7-T1: Normal endplates. Normal disc height and morphology. Normal central canal and intervertebral neuroforamina. 1.5 cm nodule right lobe of thyroid gland and correlation with thyroid ultrasound is recommended. CT/Spine Cervical without Contras IMPRESSION: No acute fracture or subluxation. 1.5 cm nodule right lobe of thyroid gland correlation with thyroid ultrasound is recommended. Electronically Signed: Abiodun Jeong MD at 21:19 EDT ,
--- NOTE | 2023-03-31 18:38 | EKG12_ITS ---
Test Reason : ETOH Blood Pressure : / mmHG Vent. Rate : 115 BPM Atrial Rate : 115 BPM P-R Int : 000 ms QRS Dur : 086 ms QT Int : 462 ms P-R-T Axes : 000 053 076 degrees QTc Int : 639 ms SINUS TACHYCARDIA Confirmed by KATLYN FLOYD, NATHALIE ([id number]), copy editor JANE REYNOLDS ([id number]) on 04/02/2023 7:14:56 AM Referred By: Confirmed By:DARRELL POTTS MD
--- NOTE | 2023-03-31 18:38 | CT_ITS ---
STUDY: CT BRAIN WITHOUT CONTRAST REASON FOR EXAM: Male, 62 years old. head trauma RADIATION DOSAGE (If Supplied By Facility): CTDIvol = ( 44.99 ) mGy, DLP = ( 914.22 ) mGycm TECHNIQUE: Transaxial CT imaging of the brain was performed without administration of intravenous contrast material. Individualized dose optimization techniques were used for this CT. COMPARISON: 05/19/2022 FINDINGS: Normal soft tissue structures. Normal calvarium. There is moderate cerebral atrophy with widening of the extra-axial spaces and ventricular dilatation. There are areas of decreased attenuation within the white matter tracts of the supratentorial brain, consistent with microvascular disease changes. Normal basal ganglia and thalami. Normal brainstem. Normal cerebellum. There is no intracranial hemorrhage. There are no findings of an acute ischemic infarction. Normal visualized paranasal sinuses. CT/Brain/Head without Contrast IMPRESSION: Chronic involutional changes of the brain. Electronically Signed: Abiodun Jeong MD at 21:14 EDT ,
--- NOTE | 2023-03-31 18:43 | CM.ED ---
Social Work Per coin teller Alyssa, patient is not interested in detox program. Patient currently intoxicated, SW unable to verify advanced directives. April Dia BATCH MIXER, PHOEBE
[2023-03-31] MEDS: Ziprasidone IM 20 MG/ML VIAL IM (19:23)
[2023-03-31 19:40] LABS: AST(SGOT) 112 U/L (15-37); Alanine Aminotransfer ALT/SGPT 63 U/L (16-61); Albumin, Serum 3.5 g/dL (3.2-5.0); Alkaline Phosphatase 105 U/L (45-117); Anion Gap 21 (5-15); BUN 9 mg/dL (7-18); BUN/Creat Ratio 9.6 RATIO (10-20); Bilirubin, Direct 1.12 mg/dL (0.00-0.30); Calcium,Total 8.4 mg/dL (8.5-10.1); Chloride 97 mmol/L (98-107); Creatinine, Serum 0.93 mg/dL (0.70-1.30); EST Glomerular Filtration Rate 87 mL/min (>60); Est Glom Filt Rate - Afr Amer 105 mL/min (>60); Estimated Creatinine Clearance 81.77 ml/min; Globulin 3.5 g/dL (2.2-4.2); Glucose 120 mg/dL (74-106); Lipase 53 U/L (13-75); Potassium 3.5 mmol/L (3.5-5.1); Sodium Level 136 mmol/L (136-145); Troponin-I HS 13 pg/mL (3.0-78.0)
--- NOTE | 2023-03-31 20:04 | RAD_ITS ---
STUDY: X-RAY - LEFT KNEE REASON FOR EXAM: Male, 62 years old. pain TECHNIQUE: 2 view(s) of the knee. COMPARISON: None. FINDINGS: Normal visualized distal femur. Normal visualized proximal tibia and fibula. Normal proximal tibiofibular articulation. Normal medial femorotibial compartment. Normal lateral femorotibial compartment. Normal patellofemoral articulation. The soft tissue structures are unremarkable. RAD/Knee 1 or 2 Views IMPRESSION: Normal x-ray examination of the knee. Electronically Signed: Abiodun Jeong MD at 21:23 EDT ,
--- NOTE | 2023-03-31 20:04 | RAD_ITS ---
STUDY: X-RAY CHEST REASON FOR EXAM: Male, 62 years old. ams TECHNIQUE: Single AP portable view of the chest. COMPARISON: 05/28/2022 FINDINGS: Interval removal of endotracheal tube, nasogastric tube, right upper extremity PICC. The lungs are clear and expanded. There is no demonstrated pleural abnormality. Normal size heart. Normal mediastinum and saida. Normal visualized pulmonary arteries. Normal visualized aortic arch and descending thoracic aorta. Normal visualized thoracic spine. Normal visualized ribs, clavicles, and shoulders. There is no demonstrated abnormality of the visualized soft tissue structures of the upper abdomen. RAD/Chest 1 View (Portable) IMPRESSION: Normal x-ray examination of the chest. Electronically Signed: Abiodun Jeong MD at 21:22 EDT ,
--- NOTE | 2023-03-31 20:52 | CT_ITS ---
STUDY: CT BRAIN WITHOUT CONTRAST REASON FOR EXAM: Male, 62 years old. head trauma RADIATION DOSAGE (If Supplied By Facility): CTDIvol = ( 44.99 ) mGy, DLP = ( 931.09 ) mGycm TECHNIQUE: Transaxial CT imaging of the brain was performed without administration of intravenous contrast material. Individualized dose optimization techniques were used for this CT. COMPARISON: 03/31/2023 FINDINGS: Normal soft tissue structures. Normal calvarium. There is moderate cerebral atrophy with widening of the extra-axial spaces and ventricular dilatation. Normal white matter tracts of the cerebral hemispheres. Normal basal ganglia and thalami. Normal brainstem. Normal cerebellum. There is no intracranial hemorrhage. There are no findings of an acute ischemic infarction. Normal visualized paranasal sinuses. CT/Brain/Head without Contrast IMPRESSION: Chronic involutional changes of the brain. Electronically Signed: Abiodun Jeong MD at 21:44 EDT ,
--- NOTE | 2023-03-31 20:52 | CT_ITS ---
STUDY: CT CERVICAL SPINE WITHOUT CONTRAST REASON FOR EXAM: Male, 62 years old. trauma RADIATION DOSAGE (If Supplied By Facility): CTDIvol = ( 28.33 ) mGy, DLP = ( 685.57 ) mGycm TECHNIQUE: High resolution transaxial imaging was performed without contrast material. Sagittal and coronal images were reconstructed. Individualized dose optimization techniques were used for this CT. COMPARISON: 12/11/2021 FINDINGS: Normal craniovertebral junction. There are degenerative changes of the anterior atlantoaxial articulation. Normal odontoid process. Normal cervical lordosis. Normal vertebral bodies and posterior osseous elements. C2-3: Normal endplates. Normal disc height and morphology. Normal central canal and intervertebral neuroforamina. C3-4: Mild left facet hypertrophy produces mild left neural foraminal stenosis. No central spinal stenosis. C4-5: Normal endplates. Normal disc height and morphology. Normal central canal and intervertebral neuroforamina. C5-6: Mild broad disc osteophyte complex and bilateral uncovertebral hypertrophy produces mild spinal stenosis and mild bilateral neural foraminal stenosis. C6-7: Mild broad disc osteophyte complex produces mild spinal stenosis. No neural foraminal stenosis. C7-T1: Normal endplates. Normal disc height and morphology. Normal central canal and intervertebral neuroforamina. Normal visualized soft tissue structures. CT/Spine Cervical without Contras IMPRESSION: No acute fracture or subluxation. Electronically Signed: Abiodun Jeong MD at 21:47 EDT ,
--- NOTE | 2023-03-31 20:55 | ED.RN ---
This nurse into check on pt. pt found laying on the floor with feet up in the air. no new skin tears noted. pt unable to state if anything hurts. pt yelling about going home, requesting his glasses and his mom. pt educated updated again on all information. pt still stating he was going home. pt unable to stand or sit up on his own. x6 staff assisted pt back into bed. Dr. Mendenhall updated.
--- NOTE | 2023-03-31 21:26 | EX.ED.SAOD ---
HPI <Dr. William Mendenhall DO - Last Filed: 04/01/23 15:08> History of Present Illness Chief Complaint: ETOH Intox Narrative Narrative: 62-year-old male presenting intoxicated. Apparently he is a chronic alcoholic and drinks a lot of alcohol daily. When I asked him how much he drank today he states I drank 20 alcohols. He also states that he is not drunk. Patient does have an abrasion to the left knee but otherwise no signs of trauma. He is slurring his speech and he is agitated. Apparently had had some falls today. Does not appear that he is on any blood thinners. He does have history of EtOH abuse and withdrawal seizure. [facility] <Dr. William Mendenhall DO - Last Filed: 04/01/23 15:08> [facility] Medical History Acute and chronic respiratory failure with hypoxia EMMANUEL (acute kidney injury) Alcohol dependence syndrome Alcohol withdrawal Alcohol withdrawal seizure Aspiration into airway Atherosclerosis of coronary artery of [place] heart without angina pectoris Bilateral inguinal hernia without obstruction or gangrene Essential hypertension Fracture of right humerus with nonunion GERD (gastroesophageal reflux disease) High anion gap metabolic acidosis History of CVA (cerebrovascular accident) History of DVT (deep vein thrombosis) History of [place] (myocardial infarction) Hypertriglyceridemia without hypercholesterolemia Incarcerated umbilical hernia Inguinal hernia Lactic acidemia On mechanically assisted ventilation Pneumonia due to E. coli Preop cardiovascular exam Radial nerve palsy Respiratory failure Home Medications aspirin 81 mg tablet,delayed release (Adult Low Dose Aspirin) 81 mg PO DAILY Check with primary doctor 07/04/19 [History Last Taken 03/29/20] Allergy/AdvReac Type Severity Reaction Status Date / Time No Known Allergies Allergy Verified 03/31/23 18:30 Family History Mother Colon cancer Heart disease Father Lymphoma Heart disease Surgical History History of esophagogastroduodenoscopy (EGD) History of tonsillectomy and adenoidectomy Social History Smoking Status: Current every day smoker tobacco type: cigarettes alcohol intake: former year quit: 2019 substance use type: does not use caffeine: Yes Type: carbonated beverages Number of servings: 2 and coffee Number of servings: 6 what type of physical activity do you participate in: walking frequency: daily ROS <Dr. William Mendenhall DO - Last Filed: 04/01/23 15:08> ROS ED Review of Systems ROS Unobtainable: due to mental condition and due to mental status EXAM <Dr. William Mendenhall DO - Last Filed: 04/01/23 15:08> Physical Exam Const Vital Signs: 03/31/23 18:30 03/31/23 18:38 03/31/23 21:51 Temperature 96.2 F L Temperature Source Temporal Pulse Rate 118 H 99 Respiratory Rate 16 18 Blood Pressure 154/100 H 123/65 H Blood Pressure Mean 118 84 Pulse Ox 95 91 Oxygen Delivery Method Room Air 03/31/23 22:32 04/01/23 00:00 04/01/23 02:00 Temperature Temperature Source Pulse Rate 109 H 98 Respiratory Rate 18 16 Blood Pressure 103/62 116/59 L 102/59 L Blood Pressure Mean 75 78 73 Pulse Ox 93 98 Oxygen Delivery Method Room Air Room Air 04/01/23 04:29 04/01/23 06:50 Temperature Temperature Source Pulse Rate 80 Respiratory Rate 16 18 Blood Pressure Blood Pressure Mean Pulse Ox 96 Oxygen Delivery Method Positive well nourished and unkempt General Appearance ED: unkempt; Negative for pallor HEENT Reports moist mucous membranes atraumatic Eyes PERRL and EOMs intact bilaterally General Eye ED: Negative for pale conjunctiva or scleral icterus Neck no lymphadenopathy Chest Wall inspection of chest normal Resp normal respiratory effort and clear to auscultation bilaterally Cardio regular rhythm Rate: tachycardic GI soft to palpation and non-tender Extremity Extremity Narrative: Facial abrasion over left knee Neuro oriented x3 Silvio Coma Scale: document GCS findings Spontaneous Obeys Commands Confused 14 Sensorium / Orientation: alert Motor Exam: general weakness Psych Psych Narrative: Appears intoxicated Appearance: unkempt Skin General Skin Exam: Negative for jaundice or pallor <Hermes Reyes - Last Filed: 03/31/23 22:02> Physical Exam Const Vital Signs: 03/31/23 18:30 03/31/23 18:38 03/31/23 21:51 Temperature 96.2 F L Temperature Source Temporal Pulse Rate 118 H 99 Respiratory Rate 16 18 Blood Pressure 154/100 H 123/65 H Blood Pressure Mean 118 84 Pulse Ox 95 91 Oxygen Delivery Method Room Air 03/31/23 22:32 04/01/23 00:00 04/01/23 02:00 Temperature Temperature Source Pulse Rate 109 H 98 Respiratory Rate 18 16 Blood Pressure 103/62 116/59 L 102/59 L Blood Pressure Mean 75 78 73 Pulse Ox 93 98 Oxygen Delivery Method Room Air Room Air 04/01/23 04:29 04/01/23 06:50 Temperature Temperature Source Pulse Rate 80 Respiratory Rate 16 18 Blood Pressure Blood Pressure Mean Pulse Ox 96 Oxygen Delivery Method Neuro Silvio Coma Scale: document GCS findings 14 <Dr. Ino Kramer, DO - Last Filed: 04/01/23 06:43> Physical Exam Const Vital Signs: 03/31/23 18:30 03/31/23 18:38 03/31/23 21:51 Temperature 96.2 F L Temperature Source Temporal Pulse Rate 118 H 99 Respiratory Rate 16 18 Blood Pressure 154/100 H 123/65 H Blood Pressure Mean 118 84 Pulse Ox 95 91 Oxygen Delivery Method Room Air 03/31/23 22:32 04/01/23 00:00 04/01/23 02:00 Temperature Temperature Source Pulse Rate 109 H 98 Respiratory Rate 18 16 Blood Pressure 103/62 116/59 L 102/59 L Blood Pressure Mean 75 78 73 Pulse Ox 93 98 Oxygen Delivery Method Room Air Room Air 04/01/23 04:29 04/01/23 06:50 Temperature Temperature Source Pulse Rate 80 Respiratory Rate 16 18 Blood Pressure Blood Pressure Mean Pulse Ox 96 Oxygen Delivery Method Neuro Silvio Coma Scale: document GCS findings 14 MDM <Dr. William Mendenhall, DO - Last Filed: 04/01/23 15:08> MDM MDM Narrative Medical decision making narrative: Patient presenting with multiple falls. He appears intoxicated. Differential includes intracranial hemorrhage, skull fracture, C-spine fracture, concussion, dehydration, electrolyte abnormalities, EtOH intoxication, drug abuse, anemia, UTI. BC was obtained to assess white blood cell count, hemoglobin, platelets. CMP to assess liver function, renal function, electrolytes. Urinalysis to assess for UTI. EtOH level to assess for intoxication. AG and high-sensitivity troponin assess for ischemia/dysrhythmia. CT brain to rule intracranial hemorrhage CT cervical spine because I cannot rule him out criteria. Chest x-ray to rule out pneumonia. Patient became combative and required Geodon. Obtained a CT cervical spine and CT brain and blood work. CBC normal white blood cell count of 6.1. Hemoglobin 15.7, platelets 185. CMP shows elevated ALT at 63, AST 112, direct bilirubin 1.12, total bilirubin 2.2 patient with known history of EtOH abuse. Lipase is normal. He is not complaining of any abdominal pain. Analysis negative for infection. EKG on my interpretation shows sinus tachycardia at 150 bpm without sign of ischemic change or ectopy on my interpretation. Is a lot of artifact. During my interpretation shows no acute process. I did obtain an x-ray of the left knee since the patient has abrasion here and there is no acute fracture noted on my interpretation. Drug screen is negative. EtOH level came back at 454. Prior to CT brain and cervical spine being interpreted the patient had manage decline over the rail and fall on his head again. I did repeat CTs brain and cervical spine and these were both negative again. There is noted to be a thyroid nodule on the CT of the cervical spine. Patient will need outpatient follow-up for thyroid nodule via ultrasound. Patient signed out to incoming ED physician for monitoring until sober enough to go home. Expresses to me he does not want detox. Impression: 1. EtOH intoxication 2. Elevated LFTs 3. Closed head injury 4. Multiple falls 5. Left knee contusion 6. Thyroid nodule Lab Data Labs: Laboratory Results - last 24 hr 03/31/23 03/31/23 03/31/23 18:58 19:33 21:45 Sodium 136 Potassium 3.5 Chloride 97 L Carbon Dioxide 18.0 L Anion Gap 21 H BUN 9 Creatinine 0.93 Estim Creat Clear Calc 81.77 Est GFR (MDRD) Af Amer 105 Est GFR (MDRD) Non-Af 87 BUN/Creatinine Ratio 9.6 L Glucose 120 H Calcium 8.4 L Total Bilirubin 2.20 H Direct Bilirubin 1.12 H AST 112 H ALT 63 H Alkaline Phosphatase 105 Troponin I High Sens 13 Total Protein 7.0 Albumin 3.5 Globulin 3.5 Lipase 53 Urine Color Jacqueline Urine Clarity Clear Urine pH 6.0 Ur Specific [place] 1.010 Urine Protein 15 H Urine Glucose (UA) Normal Urine Ketones 50 H Urine Occult Blood 10 H Urine Nitrite Negative Urine Bilirubin Negative Urine Urobilinogen 1 H Ur Leukocyte Esterase Negative Urine RBC 0 SEEN Urine WBC 0 SEEN Ur Squamous Epith Cells 0 SEEN Urine Bacteria 0 SEEN Urine Mucus 0 SEEN Urine Opiates Screen NEGATIVE Urine Methadone Screen NEGATIVE Ur Barbiturates Screen NEGATIVE Ur Phencyclidine Scrn NEGATIVE Ur Amphetamines Screen NEGATIVE MDMA (Ecstasy) Screen NEGATIVE U Benzodiazepines Scrn NEGATIVE Urine Cocaine Screen NEGATIVE U Cannabinoids Screen NEGATIVE Ur Drug Screen Comment Ethyl Alcohol Cancelled 454.0 H* Radiography Diagnostic Testing: Clinical Impression(s) from Imaging Studies Brain CT 03/31/23 18:38 IMPRESSION: Chronic involutional changes of the brain. Electronically Signed: Abiodun Jeong MD at 21:14 EDT Reading Location ID and State: [id number] / [employer] , Service support , Cervical Spine CT 03/31/23 18:38 IMPRESSION: No acute fracture or subluxation. 1.5 cm nodule right lobe of thyroid gland correlation with thyroid ultrasound is recommended. Electronically Signed: Abiodun Jeong MD at 21:19 EDT Reading Location ID and State: [id number] / [employer] , Service support , Chest X-Ray 03/31/23 20:04 IMPRESSION: Normal x-ray examination of the chest. Electronically Signed: Abiodun Jeong MD at 21:22 EDT Reading Location ID and State: [id number] / [employer] , Service support , Knee X-Ray 03/31/23 20:04 IMPRESSION: Normal x-ray examination of the knee. Electronically Signed: Abiodun Jeong MD at 21:23 EDT Reading Location ID and State: [id number] / [employer] , Service support , Brain CT 03/31/23 20:52 IMPRESSION: Chronic involutional changes of the brain. Electronically Signed: Abiodun Jeong MD at 21:44 EDT Reading Location ID and State: [id number] / [employer] , Service support , Cervical Spine CT 03/31/23 20:52 IMPRESSION: No acute fracture or subluxation. Electronically Signed: Abiodun Jeong MD at 21:47 EDT Reading Location ID and State: [address] [place] [address] Tel , Service support , <Hermes Reyes - Last Filed: 03/31/23 22:02> [facility] Lab Data Labs: Laboratory Results - last 24 hr 03/31/23 03/31/23 03/31/23 18:58 19:33 21:45 Sodium 136 Potassium 3.5 Chloride 97 L Carbon Dioxide 18.0 L Anion Gap 21 H BUN 9 Creatinine 0.93 Estim Creat Clear Calc 81.77 Est GFR (MDRD) Af Amer 105 Est GFR (MDRD) Non-Af 87 BUN/Creatinine Ratio 9.6 L Glucose 120 H Calcium 8.4 L Total Bilirubin 2.20 H Direct Bilirubin 1.12 H AST 112 H ALT 63 H Alkaline Phosphatase 105 Troponin I High Sens 13 Total Protein 7.0 Albumin 3.5 Globulin 3.5 Lipase 53 Urine Color Jacqueline Urine Clarity Clear Urine pH 6.0 Ur Specific [place] 1.010 Urine Protein 15 H Urine Glucose (UA) Normal Urine Ketones 50 H Urine Occult Blood 10 H Urine Nitrite Negative Urine Bilirubin Negative Urine Urobilinogen 1 H Ur Leukocyte Esterase Negative Urine RBC 0 SEEN Urine WBC 0 SEEN Ur Squamous Epith Cells 0 SEEN Urine Bacteria 0 SEEN Urine Mucus 0 SEEN Urine Opiates Screen NEGATIVE Urine Methadone Screen NEGATIVE Ur Barbiturates Screen NEGATIVE Ur Phencyclidine Scrn NEGATIVE Ur Amphetamines Screen NEGATIVE MDMA (Ecstasy) Screen NEGATIVE U Benzodiazepines Scrn NEGATIVE Urine Cocaine Screen NEGATIVE U Cannabinoids Screen NEGATIVE Ur Drug Screen Comment Ethyl Alcohol Cancelled 454.0 H* Radiography Diagnostic Testing: Clinical Impression(s) from Imaging Studies Brain CT 03/31/23 18:38 IMPRESSION: Chronic involutional changes of the brain. Electronically Signed: Abiodun Jeong MD at 21:14 EDT Reading Location ID and State: [address] [place] [address] Tel , Service support , Cervical Spine CT 03/31/23 18:38 IMPRESSION: No acute fracture or subluxation. 1.5 cm nodule right lobe of thyroid gland correlation with thyroid ultrasound is recommended. Electronically Signed: Abiodun Jeong MD at 21:19 EDT Reading Location ID and State: [id number] / [employer] , Service support , Chest X-Ray 03/31/23 20:04 IMPRESSION: Normal x-ray examination of the chest. Electronically Signed: Abiodun Jeong MD at 21:22 EDT Reading Location ID and State: [id number] / [employer] , Service support , Knee X-Ray 03/31/23 20:04 IMPRESSION: Normal x-ray examination of the knee. Electronically Signed: Abiodun Jeong MD at 21:23 EDT Reading Location ID and State: [id number] / [employer] , Service support , Brain CT 03/31/23 20:52 IMPRESSION: Chronic involutional changes of the brain. Electronically Signed: Abiodun Jeong MD at 21:44 EDT Reading Location ID and State: [employer] / [employer] , Service support , Cervical Spine CT 03/31/23 20:52 IMPRESSION: No acute fracture or subluxation. Electronically Signed: Abiodun Jeong MD at 21:47 EDT Reading Location ID and State: [id number] / [employer] , Service support , <Dr. Ino Kramer, DO - Last Filed: 04/01/23 06:43> [facility] Lab Data Labs: Laboratory Results - last 24 hr 03/31/23 03/31/23 03/31/23 18:58 19:33 21:45 Sodium 136 Potassium 3.5 Chloride 97 L Carbon Dioxide 18.0 L Anion Gap 21 H BUN 9 Creatinine 0.93 Estim Creat Clear Calc 81.77 Est GFR (MDRD) Af Amer 105 Est GFR (MDRD) Non-Af 87 BUN/Creatinine Ratio 9.6 L Glucose 120 H Calcium 8.4 L Total Bilirubin 2.20 H Direct Bilirubin 1.12 H AST 112 H ALT 63 H Alkaline Phosphatase 105 Troponin I High Sens 13 Total Protein 7.0 Albumin 3.5 Globulin 3.5 Lipase 53 Urine Color Jacqueline Urine Clarity Clear Urine pH 6.0 Ur Specific [place] 1.010 Urine Protein 15 H Urine Glucose (UA) Normal Urine Ketones 50 H Urine Occult Blood 10 H Urine Nitrite Negative Urine Bilirubin Negative Urine Urobilinogen 1 H Ur Leukocyte Esterase Negative Urine RBC 0 SEEN Urine WBC 0 SEEN Ur Squamous Epith Cells 0 SEEN Urine Bacteria 0 SEEN Urine Mucus 0 SEEN Urine Opiates Screen NEGATIVE Urine Methadone Screen NEGATIVE Ur Barbiturates Screen NEGATIVE Ur Phencyclidine Scrn NEGATIVE Ur Amphetamines Screen NEGATIVE MDMA (Ecstasy) Screen NEGATIVE U Benzodiazepines Scrn NEGATIVE Urine Cocaine Screen NEGATIVE U Cannabinoids Screen NEGATIVE Ur Drug Screen Comment Ethyl Alcohol Cancelled 454.0 H* Radiography Diagnostic Testing: Clinical Impression(s) from Imaging Studies Brain CT 03/31/23 18:38 IMPRESSION: Chronic involutional changes of the brain. Electronically Signed: Abiodun Jeong MD at 21:14 EDT Reading Location ID and State: [id number] / [employer] , Service support , Cervical Spine CT 03/31/23 18:38 IMPRESSION: No acute fracture or subluxation. 1.5 cm nodule right lobe of thyroid gland correlation with thyroid ultrasound is recommended. Electronically Signed: Abiodun Jeong MD at 21:19 EDT Reading Location ID and State: [id number] / [employer] , Service support , Chest X-Ray 03/31/23 20:04 IMPRESSION: Normal x-ray examination of the chest. Electronically Signed: Abiodun Jeong MD at 21:22 EDT , Knee X-Ray 03/31/23 20:04 IMPRESSION: Normal x-ray examination of the knee. Electronically Signed: Abiodun Jeong MD at 21:23 EDT , Brain CT 03/31/23 20:52 IMPRESSION: Chronic involutional changes of the brain. Electronically Signed: Abiodun Jeong MD at 21:44 EDT Reading Location ID and State: [id number] / [employer] , Service support , Cervical Spine CT 03/31/23 20:52 IMPRESSION: No acute fracture or subluxation. Electronically Signed: Abiodun Jeong MD at 21:47 EDT Reading Location ID and State: [id number] / [employer] , Service support , Treatment and Re-Evaluation Narrative: Care of the patient was turned over to me. Patient remained calm and cooperative during my shift. Patient is able to ambulate on reevaluation and will be discharged home. Patient was instructed to follow-up with his primary care physician in 5 to 7 days. Discharge Plan Triage Chief Complaint: ETOH Intox ED Provider: William Mendenhall Dx/Rx/DC Orders Clinical Impression: Thyroid nodule Instructions: Common Thyroid Problems, ED Head Injury (Adult), ED Alcohol Abuse Prescriptions: No Action aspirin [Adult Low Dose Aspirin] 81 mg tablet,delayed release (DR/EC) 81 mg PO DAILY Primary Care Provider: Kanika Cortez Referrals: Kanika Cortez MD [Primary Care Provider] - Activity Restrictions/Additional Instructions: There is a nodule on your thyroid which will need follow-up imaging in the form of ultrasound through your PCP. Disposition Disposition: Home, Self Care Discharge Date/Time: 04/01/23 06:51
[2023-03-31 21:51] VITALS: BP 123/65; PULSE 99; RESP 18; O2SAT 91
[2023-03-31 21:51] LABS: Bacteria 0 SEEN /hpf (None Seen); Mucous, Urine 0 SEEN /hpf (<or=2+); Red Blood Cells-Urine 0 SEEN /hpf (0-5); Squamous Epithelial Cells - UA 0 SEEN /hpf (0-5); White Blood Cells 0 SEEN /hpf (0-5)
[2023-03-31 21:57] LABS: Color, Urine Amber (Yellow); Glucose, Dipstick Normal (Normal); Ketone-Dipstick 50 mg/dl (Negative); Leukocyte Esterase-Dipstick Negative /ul (Negative); Nitrite-Dipstick Negative (Negative); Occult Blood-Urine 10 /ul (Negative); Protein-Dipstick 15 mg/dl (Negative); Urine Bilirubin Dipstick Negative (Negative); Urine Clarity Clear (Clear); Urine Urobilinogen 1 mg/dl (Normal)
[2023-03-31 22:09] LABS: Amphetamine Urine VISTA NEGATIVE (<1000 ng/mL); Barbiturate Urine VISTA NEGATIVE (< 200 ng/mL); Benzodiazepine Urine VISTA NEGATIVE (< 200 ng/mL); Cocaine Urine VISTA NEGATIVE (< 300 ng/mL); Ecstacy Urine VISTA NEGATIVE (< 500 ng/mL); Methadone Urine VISTA NEGATIVE (< 300 ng/mL); PCP Urine VISTA NEGATIVE (< 25 ng/mL); THC Urine VISTA NEGATIVE (< 50 ng/mL); Vista UDS pH Range 6
[2023-03-31 22:32] VITALS: BP 103/62; PULSE 109; RESP 18; O2SAT 93
[2023-04-01] VITALS: BP 116/59; PULSE 98; RESP 16; O2SAT 98
[2023-04-01 02:00] VITALS: BP 102/59
[2023-04-01 04:29] VITALS: RESP 16
[2023-04-01 06:50] VITALS: PULSE 80; RESP 18; O2SAT 96
== END 2023-04-01 06:51 | disposition home or self-care (01) ==
PROVIDERS: Emergency Provider Student in an Organized Health Care Education/Training Program; PCP Internal Medicine; Visit Provider Student in an Organized Health Care Education/Training Program
DX: F10.229 Alcohol dependence with intoxication, unspecified (principal); S09.90XA Unspecified injury of head, initial encounter; W19.XXXA Unspecified fall, initial encounter; Y90.8 Blood alcohol level of 240 mg/100 ml or more; R29.6 Repeated falls; I10 Essential (primary) hypertension; I25.10 Atherosclerotic heart disease of native coronary artery without angina pectoris; E04.1 Nontoxic single thyroid nodule; R79.89 Other specified abnormal findings of blood chemistry; S80.02XA Contusion of left knee, initial encounter; K21.9 Gastro-esophageal reflux disease without esophagitis; I25.2 Old myocardial infarction; F17.210 Nicotine dependence, cigarettes, uncomplicated; Z79.82 Long term (current) use of aspirin; Z86.73 Personal history of transient ischemic attack (TIA), and cerebral infarction without residual deficits; Z86.718 Personal history of other venous thrombosis and embolism
CPT/HCPCS: 70450; 71045; 72125; 73560; 80048; 80076; 80307; 81001; 82077; 83690; 84484; 93005; 96372; 99285; A4216; J3486

== ENCOUNTER 2023-04-26 22:17 | Emergency (ER) | payer MEDICAID, SELFPAY ==
[2023-04-26 22:19] VITALS: BP 125/83; PULSE 102; RESP 17; TEMP 36.7; O2SAT 98; BMI 31.1
--- NOTE | 2023-04-26 22:22 | EX.ED.DYSGE1 ---
HPI History of Present Illness Chief Complaint: Substance Abuse Informant: EMS Narrative Narrative: 63-year-old alcoholic brought to the emergency department by EMS. EMS states that the patient's mother called them tonight stating that he was on the floor and could not get up. He has been drinking heavily. EMS notes that it appears that he is fallen several days ago as he has abrasions on his knees. They note that he was stable and minimally redirectable in route. Patient cannot provide any meaningful conversation asking what time it is and where his glasses are. Patient appears to have urinated on himself. He has fecal matter on his feet and his hands. [facility] Medical History Acute and chronic respiratory failure with hypoxia EMMANUEL (acute kidney injury) Alcohol dependence syndrome Alcohol withdrawal Alcohol withdrawal seizure Aspiration into airway Atherosclerosis of coronary artery of [place] heart without angina pectoris Bilateral inguinal hernia without obstruction or gangrene Essential hypertension Fracture of right humerus with nonunion GERD (gastroesophageal reflux disease) High anion gap metabolic acidosis History of CVA (cerebrovascular accident) History of DVT (deep vein thrombosis) History of [place] (myocardial infarction) Hypertriglyceridemia without hypercholesterolemia Incarcerated umbilical hernia Inguinal hernia Lactic acidemia On mechanically assisted ventilation Pneumonia due to E. coli Preop cardiovascular exam Radial nerve palsy Respiratory failure Home Medications aspirin 81 mg tablet,delayed release (Adult Low Dose Aspirin) 81 mg PO DAILY Check with primary doctor 07/04/19 [History Last Taken 03/29/20] Allergy/AdvReac Type Severity Reaction Status Date / Time No Known Allergies Allergy Verified 03/31/23 18:30 Family History Mother Colon cancer Heart disease Father Lymphoma Heart disease Surgical History History of esophagogastroduodenoscopy (EGD) History of tonsillectomy and adenoidectomy Social History Smoking Status: Current every day smoker tobacco type: cigarettes alcohol intake: former year quit: 2019 substance use type: does not use caffeine: Yes Type: carbonated beverages Number of servings: 2 and coffee Number of servings: 6 what type of physical activity do you participate in: walking frequency: daily ROS ROS ED Review of Systems ROS Unobtainable: due to mental status EXAM Physical Exam Const Vital Signs: 04/26/23 22:19 Temperature 98.1 F Temperature Source Temporal Pulse Rate 102 H Respiratory Rate 17 Blood Pressure 125/83 H Blood Pressure Mean 97 Pulse Ox 98 Oxygen Delivery Method Room Air Positive well nourished, well developed and obese General Appearance ED: well developed Nutritional Appearance: obese HEENT Reports normocephalic, head/scalp atraumatic and moist mucous membranes Eyes PERRL and EOMs intact bilaterally Eyes Narrative: Pupils 4 mm and sluggish there is a slight nystagmus Neck no lymphadenopathy, supple and no JVD Resp normal respiratory effort and clear to auscultation bilaterally Cardio regular rate, regular rhythm and no murmurs GI normal to inspection, nondistended, normoactive bowel sounds and non-tender GI Narrative: Reducible umbilical hernia noted Palpation: soft Narrative: Patient incontinent of urine. Swelling of the scrotum (chronic) most likely due to hernia versus hydrocele Back/Spine no CVA tenderness and normal ROM Extremity normal to inspection General Extremety ED: Negative for edema General Extremity: Negative for edema Neuro CN's II-XII intact bilaterally Neuro Narrative: Patient smells intoxicated. He cannot carry on a conversation. Moves all extremities. Sensorium / Orientation: alert and orientation impaired Motor Exam: strength 5/5 throughout Skin no rashes or lesions noted Skin Narrative: There are bilateral knee abrasions with some surrounding erythema. These are scabbed over. There is minimal redness around them. No evidence of secondary infection MDM MDM MDM Narrative Medical decision making narrative: Patient unable to be directed in bed. He is attempting to remove cardiac monitoring. He patient is yelling loudly and I can hear him in the back hallway. Patient is very unsteady on his feet and likely a very high fall risk. We will administer some Haldol to see if we can get him to rest and attempt to sober up. On the monitor the patient is in a narrow complex sinus rhythm. There does not appear to be any QT prolongation. Discharge Plan Triage Chief Complaint: Substance Abuse ED Provider: Loy Angeles Dx/Rx/DC Orders Clinical Impression: Alcohol intoxication, Alcoholism Instructions: Alcohol Addiction Prescriptions: No Action aspirin [Adult Low Dose Aspirin] 81 mg tablet,delayed release (DR/EC) 81 mg PO DAILY Primary Care Provider: Kanika Cortez Referrals: Kanika Cortez MD [Primary Care Provider] - As soon as possible [facility] [Non-Staff] - As soon as possible (Please seek treatment for your alcoholism)
[2023-04-26] MEDS: Haloperidol Lactate 5 MG/ML Vial 10 MG IM (22:28)
[2023-04-26 23:34] VITALS: BP 125/78; PULSE 82; RESP 16; O2SAT 98
[2023-04-27 05:00] VITALS: BP 106/68
== END 2023-04-27 05:15 | disposition home or self-care (01) ==
PROVIDERS: Emergency Provider Emergency Medicine; PCP Internal Medicine; Visit Provider Emergency Medicine
DX: F10.229 Alcohol dependence with intoxication, unspecified (principal); S80.211A Abrasion, right knee, initial encounter; S80.212A Abrasion, left knee, initial encounter; W19.XXXA Unspecified fall, initial encounter; I10 Essential (primary) hypertension; I25.10 Atherosclerotic heart disease of native coronary artery without angina pectoris; F17.210 Nicotine dependence, cigarettes, uncomplicated; Z79.82 Long term (current) use of aspirin
CPT/HCPCS: 96372; 99285

== ENCOUNTER 2023-05-01 07:19 | Inpatient (IN) | payer MEDICAID, SELFPAY ==
[2023-05-01] VITALS (11 sets, daily range): BP systolic 109–136; BP diastolic 64–92; PULSE 106–123; RESP 16–22; TEMP 36.5–37.2; O2SAT 87–100; BMI 29.7; BMI 28.5
--- NOTE | 2023-05-01 07:28 | RAD_ITS ---
EXAM: XR CHEST, 1 VIEW CLINICAL INDICATION: weakness TECHNIQUE: Frontal view of the chest. COMPARISON: 03/31/2023 FINDINGS: LUNGS AND PLEURAL SPACES: Unremarkable. No consolidation or edema. No pneumothorax. No effusion. HEART: Unremarkable. Cardiac silhouette not enlarged. MEDIASTINUM: Central airways and mediastinal contour are unremarkable. BONES/JOINTS: Unremarkable. No acute fracture. SOFT TISSUES: Unremarkable. RAD/Chest 1 View (Portable) IMPRESSION: No radiographic evidence of acute cardiopulmonary disease and unchanged when compared to 03/31/2023. Electronically Signed: Mendoza Ellis MD at 9:03 EST ,
--- NOTE | 2023-05-01 07:29 | EKG12_ITS ---
Test Reason : DYSRHYTHMIA Blood Pressure : / mmHG Vent. Rate : 116 BPM Atrial Rate : 116 BPM P-R Int : 176 ms QRS Dur : 066 ms QT Int : 326 ms P-R-T Axes : 024 012 061 degrees QTc Int : 453 ms Sinus tachycardia with Premature atrial complexes Otherwise normal ECG Confirmed by ARASELI FLOYD, MOLLY ([id number]), film editor supervisor RADHA KIM ([id number]) on 05/05/2023 12:34:39 PM Referred By: CELSO Confirmed By:MOLLY MARX MD
--- NOTE | 2023-05-01 07:31 | EX.ED.DYSGE1 ---
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 EMS states they are called to this residence frequently, often for minor things. Tonight he was generally weak and could not get up, he states this happens from time to time. He did not want to come to the hospital. According to police and EMS, there were feces all over the house, he was laying in his own feces, they are also smeared about the wall, and the living conditions were deplorable. He has several wounds on his legs that EMS was concerned may be contaminated with feces and getting infected. Patient states they are not hurting him and they have been there for weeks, and getting better. He has a chronic alcoholic, he states some days he does not drink but on a typical day he drinks a fifth of hard liquor. He states that his last drink was 12 hours ago, last night. He presents here at 7:30 AM. Initially told nurses that this morning but when we asked him details he states it was last night around 730 that he stopped drinking. He denies feeling like he is in withdrawal right now. He denies having any other symptoms except for feeling weak all over. Patient states he does not want to be here and wants to go home, and is asking someone to go take care of his mom, police have Adult Protective Services contacted to help with her. [facility] Medical History Acute and chronic respiratory failure with hypoxia EMMANUEL (acute kidney injury) Alcohol dependence syndrome Alcohol withdrawal Alcohol withdrawal seizure Aspiration into airway Atherosclerosis of coronary artery of [place] heart without angina pectoris Bilateral inguinal hernia without obstruction or gangrene Essential hypertension Fracture of right humerus with nonunion GERD (gastroesophageal reflux disease) High anion gap metabolic acidosis History of CVA (cerebrovascular accident) History of DVT (deep vein thrombosis) History of PA (myocardial infarction) Hypertriglyceridemia without hypercholesterolemia Incarcerated umbilical hernia Inguinal hernia Lactic acidemia On mechanically assisted ventilation Pneumonia due to E. coli Preop cardiovascular exam Radial nerve palsy Respiratory failure Home Medications aspirin 81 mg tablet,delayed release (Adult Low Dose Aspirin) 81 mg PO DAILY Check with primary doctor 07/04/19 [History Last Taken 03/29/20] Allergy/AdvReac Type Severity Reaction Status Date / Time No Known Allergies Allergy Verified 05/01/23 09:02 Family History Mother Colon cancer Heart disease Father Lymphoma Heart disease Surgical History History of esophagogastroduodenoscopy (EGD) History of tonsillectomy and adenoidectomy Social History Smoking Status: Current every day smoker tobacco type: cigarettes alcohol intake: former year quit: 2019 substance use type: does not use caffeine: Yes Type: carbonated beverages Number of servings: 2 and coffee Number of servings: 6 what type of physical activity do you participate in: walking frequency: daily ROS ROS ED Constitutional Constitutional ED: Reports as per HPI and weakness; Denies chills or fever(s) Eyes Eyes: Denies change in vision or diplopia ENT ENT ED: Denies rhinorrhea or sore throat Cardiovascular Cardiovascular: Denies chest pain or palpitations Respiratory/Chest Respiratory/Chest: Denies cough or dyspnea Gastrointestinal Gastrointestinal: Denies abdominal pain, diarrhea, nausea or vomiting Genitourinary Genitourinary ED: Denies dysuria or hematuria Musculoskeletal Musculoskeletal: Denies back pain or neck pain Integumentary Reports as per HPI and wounds; Denies abscess or rash Neurologic Neurologic: Denies headache(s), paresthesias or weakness Psychiatric Psychiatric: Denies suicidal ideation or suicidal thoughts EXAM Physical Exam Const Vital Signs: 05/01/23 07:20 Temperature 97.7 F L Temperature Source Temporal Pulse Rate 122 H Respiratory Rate 18 Blood Pressure 135/92 H Blood Pressure Mean 106 Pulse Ox 98 Oxygen Delivery Method Room Air Positive well nourished, well developed and unkempt Constitutional Narrative: Lower half of shirt and pants saturated in urine. Legs have feces smeared all over them, I do not definitively see any in any of the wounds. General Appearance ED: unkempt, well developed and NAD HEENT Reports moist mucous membranes normocephalic and atraumatic Eyes PERRL and EOMs intact bilaterally Neck full ROM and supple Resp normal respiratory effort and clear to auscultation bilaterally Cardio regular rate, regular rhythm and no murmurs Rate: tachycardic GI non-tender and non-distended Auscultation: normoactive bowel sounds Palpation: soft Narrative: Very large scrotum, there is a canal that appears benign in which the patient states his penis resides. No discharge or discoloration here, but beneath the scrotum there is foul-smelling erythematous intertriginous rash consistent with Jessica infection. Patient states this is a inguinal hernia in his scrotum that has been there for 10 years and does not bother him. There is a small area centrally anteriorly on the scrotum skin that is white, it is nontender and there is no expressible discharge from it. No subcutaneous emphysema or signs of necrotic tissue otherwise. Back/Spine no CVA tenderness General Back: other FROM Extremity Extremity Narrative: Legs covered in feces. There is a scabbed wound anterior left knee with surrounding erythema patient states is nontender. No expressible discharge. It is superficial. There are multiple small wounds on his toes. Nothing deep on the feet otherwise. No abscesses, no lymphangitis. Full range of motion of all joints. General Extremety ED: Negative for edema, pulses abnormal or tenderness General Extremity: Negative for edema or pulses abnormal Neuro oriented x3, CN's II-XII intact bilaterally and no sensory deficits noted Sensorium / Orientation: awake and alert Motor Exam: general weakness Psych Psych Narrative: Thoughts are logical. Patient agrees with me and the police and that his living conditions were deplorable, and states but it is my house. Appearance: unkempt Skin Skin Narrative: No rashes, but several discrete wounds on lower extremities see above, and a candidal intertriginous scrotal rash General Skin Exam: Negative for jaundice MDM MDM MDM Narrative Medical decision making narrative: These wounds appear to be inflamed, not necessarily grossly infected on his legs and feet. They do need wound care. I had nurses cleaned and dressed them with antibiotic ointment. The ones that are open are superficial, the rest are scabbed mostly on the toes. He states his scrotal enlargement is due to an indirect hernia that is chronic and not bothering him, there is no tenderness there but he does appear to have a candidal rash that just started according to the patient. He usually has clean urinalyses, but this 1 appears to show infection, it was sent for culture and he was started on Rocephin. I noted his labs. He has hyperbilirubinemia that is worse compared to prior, with a low AST and ALT, I suspect this is probably due to cirrhosis but this does not definitively diagnose it. His chloride is low as is his bicarb level, giving him an anion gap of 19. At this time the etiology of this is unknown. His white count is normal he is not clinically septic, will give him some IV fluids and his tachycardia resolved. His alcohol level is 0, therefore I sent a ketone level to see if he is in alcoholic ketoacidosis. It is positive, moderate. In this context it is consistent with alcoholic ketoacidosis. He is eating something in the emergency department, he does not appear to be in acute alcohol withdrawal. I will start him on D5 half-normal and discussed with the hospitalist. The patient keeps telling me that he really wants to go home. I told him about the seriousness of his issues, and the fact that it points to malnourishment, and his mother who is being admitted is hypokalemic likely due to malnourishment as well, who he was supposed to be caring for at home and clearly is not doing so, as also evidenced by the fact that they were both seen lying or sitting in their own filth and excrement. I explained at length to this patient the medical issues that he needs to be admitted for, primarily alcoholic ketoacidosis. I do not think he understands the seriousness of this, he just keeps saying that he wants to go because he needs to take care of his dog and the police cannot get in although they got into his house to get him and his mother out, and they are currently at the home finding care for the animal. Given all of this I do not feel he has the capacity to refuse treatment, he is physically too weak to get up and leave, and I am having medicine admit him, to consult social work and ethics as needed. When I discussed with the patient if he wanted detox from alcohol, he states no. Lab Data Attestation: I reviewed the patient's lab results. Labs: Laboratory Results - last 24 hr 05/01/23 05/01/23 07:55 08:11 WBC 6.5 RBC 3.29 L Hgb 12.5 L Hct 36.6 L MCV 111.2 H MCH 38.0 H MCHC 34.2 RDW Std Deviation 57.8 H RDW Coeff of Valerio 14.1 Plt Count 176 MPV 9.6 Immature Gran % (Auto) 0.900 Neut % (Auto) 78.1 H Lymph % (Auto) 9.5 L [place] % (Auto) 11.0 H Eos % (Auto) 0.2 Baso % (Auto) 0.3 Absolute Neuts (auto) 5.1 Absolute Lymphs (auto) 0.62 L Nucleated RBC % 0 PT 16.8 H INR 1.4 Sodium 134 L Potassium 4.1 Chloride 97 L Carbon Dioxide 18.0 L Anion Gap 19 H BUN 12 Creatinine 1.13 Estim Creat Clear Calc 71.26 Est GFR (MDRD) Af Amer 84 Est GFR (MDRD) Non-Af 70 BUN/Creatinine Ratio 10.6 Glucose 120 H Calcium 8.7 Total Bilirubin 3.20 H AST 72 H ALT 60 Alkaline Phosphatase 135 H Total Protein 7.1 Albumin 3.0 L Globulin 4.1 Albumin/Globulin Ratio 0.7 L Urine Color Jacqueline Urine Clarity Clear Urine pH 6.0 Ur Specific [place] 1.020 Urine Protein 100 H Urine Glucose (UA) Normal Urine Ketones 150 A* Urine Occult Blood 25 H Urine Nitrite Negative Urine Bilirubin 3 H Urine Urobilinogen 4 H Ur Leukocyte Esterase 500 H Urine RBC 0 SEEN Urine WBC >100 SEEN Ur Squamous Epith Cells 0 SEEN Urine Bacteria 1+ Urine Mucus 0 SEEN Urine Opiates Screen NEGATIVE Urine Methadone Screen NEGATIVE Ur Barbiturates Screen NEGATIVE Ur Phencyclidine Scrn NEGATIVE Ur Amphetamines Screen NEGATIVE MDMA (Ecstasy) Screen NEGATIVE U Benzodiazepines Scrn NEGATIVE Urine Cocaine Screen NEGATIVE U Cannabinoids Screen NEGATIVE Ur Drug Screen Comment Ethyl Alcohol < 3.0 Acetone Level MODERATE H Radiography Diagnostic Testing: Clinical Impression(s) from Imaging Studies Chest X-Ray 05/01/23 07:28 IMPRESSION: No radiographic evidence of acute cardiopulmonary disease and unchanged when compared to 03/31/2023. 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, Discussing w/Consultants, Arranging Admission or Transfer and Performing Direct Patient Care at Bedside Discharge Plan Dx/Rx/DC Orders Clinical Impression: Alcoholic ketoacidosis, Urinary tract infection, Wound of foot, Unable to care for self, Leg wound, left, Indirect inguinal hernia, Chronic alcohol dependence, continuous, Acquired hyperbilirubinemia Disposition Disposition: [facility] Capacity Capacity Assessment Tool Can the patient make a choice & communicate that choice?: Yes Can the patient understand benefits, risks and alternatives?: Unable to Determine Can the patient make a logical, rational choice?: No Is there an impending, emergent risk to the patient?: Yes Does the patient have an Advance Directive?: No Is there a Surrogate Available?: No
[2023-05-01] MEDS: 0.9% Normal Saline (1000mL) 1,000 ML 150 ML IV (07:52)
[2023-05-01] MEDS: 0.9% Normal Saline (500mL Bag) 500 ML 999 ML IV (07:55)
[2023-05-01 08:05] LABS: Absolute Lymphocyte Count 0.62 X10^3/uL (0.83-4.51); Absolute Neutrophil Count 5.1 X10^3/uL (2.0-7.7); Basophil# 0.02 X10^3/uL; Basophil% 0.3 % (0-1); Eosinophil# 0.01 X10^3/uL; Eosinophils% 0.2 % (0-5); Hematocrit 36.6 % (40-54); Hemoglobin 12.5 g/dL (13.0-16.5); Lymphocyte # 0.62 X10^3/ul (0.83-4.51); Lymphocyte % 9.5 % (19-41); Mean Corp Hgb Conc 34.2 g/dL (32-36); Mean Corpuscular Volume 111.2 fL (80-94); Mean Platelet Vol. 9.6 fl (6.2-12.0); Monocyte# 0.72 X10^3/uL; NRBC Flagged by Analyzer 0 % (0-5); Neutrophil % 78.1 % (47-70); Platelet Count 176 K/mm3 (150-450); RBC Distribution Width CV 14.1 % (11.6-14.6); RBC Distribution Width SD 57.8 fl (35.1-43.9); Red Blood Count 3.29 M/mm3 (4.6-6.2); White Blood Count 6.5 K/mm3 (4.4-11.0)
[2023-05-01 08:14] LABS: Mucous, Urine 0 SEEN /hpf (<or=2+); Red Blood Cells-Urine 0 SEEN /hpf (0-5); Squamous Epithelial Cells - UA 0 SEEN /hpf (0-5)
[2023-05-01 08:22] LABS: International Normalized Ratio 1.4; Prothrombin Time (Protime)PT. 16.8 SECONDS (11.7-14.9)
[2023-05-01 08:24] LABS: ALB/GLOB Ratio 0.7 RATIO (0.9-2.4); AST(SGOT) 72 U/L (15-37); Alanine Aminotransfer ALT/SGPT 60 U/L (16-61); Alkaline Phosphatase 135 U/L (45-117); Anion Gap 19 (5-15); BUN 12 mg/dL (7-18); BUN/Creat Ratio 10.6 RATIO (10-20); Calcium,Total 8.7 mg/dL (8.5-10.1); Chloride 97 mmol/L (98-107); Creatinine, Serum 1.13 mg/dL (0.70-1.30); EST Glomerular Filtration Rate 70 mL/min (>60); Est Glom Filt Rate - Afr Amer 84 mL/min (>60); Estimated Creatinine Clearance 71.26 ml/min; Globulin 4.1 g/dL (2.2-4.2); Glucose 120 mg/dL (74-106); Potassium 4.1 mmol/L (3.5-5.1); Protein, Total 7.1 g/dL (6.4-8.2); Sodium Level 134 mmol/L (136-145)
[2023-05-01 08:25] LABS: Alcohol, Blood (Medical)-Serum < 3.0 mg/dL
[2023-05-01 08:33] LABS: Color, Urine Amber (Yellow); Glucose, Dipstick Normal (Normal); Leukocyte Esterase-Dipstick 500 /ul (Negative); Nitrite-Dipstick Negative (Negative); Occult Blood-Urine 25 /ul (Negative); Protein-Dipstick 100 mg/dl (Negative); Urine Clarity Clear (Clear); Urine Urobilinogen 4 mg/dl (Normal)
[2023-05-01 08:35] LABS: Urine Bilirubin Dipstick 3 mg/dL (Negative)
[2023-05-01 08:36] LABS: Amphetamine Urine VISTA NEGATIVE (<1000 ng/mL); Barbiturate Urine VISTA NEGATIVE (< 200 ng/mL); Benzodiazepine Urine VISTA NEGATIVE (< 200 ng/mL); Cocaine Urine VISTA NEGATIVE (< 300 ng/mL); Ecstacy Urine VISTA NEGATIVE (< 500 ng/mL); Ketone-Dipstick 150 mg/dl (Negative); Methadone Urine VISTA NEGATIVE (< 300 ng/mL); PCP Urine VISTA NEGATIVE (< 25 ng/mL); THC Urine VISTA NEGATIVE (< 50 ng/mL); Vista UDS pH Range 5
[2023-05-01 09:05] LABS: Bacteria 1+ /hpf (None Seen); White Blood Cells >100 SEEN /hpf (0-5)
[2023-05-01] MEDS: Ceftriaxone 1 GM/50 ML BAG IV (09:32)
[2023-05-01] MEDS: Dext 5%-0.45% NS 1,000 ML 125 ML IV (10:45)
--- NOTE | 2023-05-01 10:56 | HP.PCM.HOS_ITS ---
HPI - General General Date of Admission: 05/01/23 Date of Service: 05/01/23 Chief Complaint: Failure to thrive HPI Narrative JORGE SOLER, is a 63 M who presented to [facility] ED on 05/01/2023 via EMS for inability to take care of himself at home. Patient seen at bedside in the ED. Sitting comfortably in bed, no apparent acute distress. Patient is currently angry that he is in the hospital and states that he wants to go home. He does not understand why he needs to be in the hospital at this time. Patient does report wounds on his legs that are chronic in nature, denies any pain in the legs or fever/chills. Patient does drink alcohol on a regular basis, states that his last drink was yesterday evening at around 730. States he drinks a few beers daily and occasionally has some hard liquor, unable to quantify further. He denies any other acute concerns at this time. As noted in ED physician note, patient has had frequent encounters in the ED for alcohol use disorder. EMS was apparently called to the home earlier today due to concerns that patient and his mother that he lives with or having issues ita ing care of the cells at home. Apparently EMS found patient laying in his own feces with feces spread all over the house and smeared on the wall, along with generally deplorable living conditions. 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 [facility] Medical History (Updated 05/01/23 @ 15:33 by Esperanza Sheppard) Acute and chronic respiratory failure with hypoxia EMMANUEL (acute kidney injury) Alcohol dependence syndrome Alcohol withdrawal Alcohol withdrawal seizure Anxiety Aspiration into airway Atherosclerosis of coronary artery of [place] heart without angina pectoris Bilateral inguinal hernia without obstruction or gangrene Essential hypertension Fracture of right humerus with nonunion GERD (gastroesophageal reflux disease) High anion gap metabolic acidosis History of CVA (cerebrovascular accident) History of DVT (deep vein thrombosis) History of [place] (myocardial infarction) Hypertriglyceridemia without hypercholesterolemia Incarcerated umbilical hernia Inguinal hernia Lactic acidemia On mechanically assisted ventilation Pneumonia due to E. coli Preop cardiovascular exam Radial nerve palsy Respiratory failure Home Medications aspirin 81 mg tablet,delayed release (Adult Low Dose Aspirin) 81 mg PO DAILY Check with primary doctor 07/04/19 [History Last Taken 03/29/20] Allergy/AdvReac Type Severity Reaction Status Date / Time No Known Allergies Allergy Verified 05/01/23 09:02 Family History Mother Colon cancer Heart disease Father Lymphoma Heart disease Surgical History History of esophagogastroduodenoscopy (EGD) History of tonsillectomy and adenoidectomy Social History Smoking Status: Current every day smoker tobacco type: cigarettes alcohol intake: former year quit: 2019 substance use type: does not use caffeine: Yes Type: carbonated beverages Number of servings: 2 and coffee Number of servings: 6 what type of physical activity do you participate in: walking frequency: daily ROS Constitutional Constitutional: Denies change in weight, chills, fatigue, fever(s) or weakness Eyes Eyes: Denies change in vision Cardiovascular Cardiovascular: Denies chest pain, edema, lightheadedness or rapid heart rate Respiratory/Chest Respiratory/Chest: Denies cough, shortness of breath at rest, shortness of breath with exertion or wheezing Gastrointestinal Gastrointestinal: Denies abdominal pain, constipation, diarrhea, nausea or vomiting Psychiatric Psychiatric: Denies anxiety or depression Vital Signs Vital Signs Vital Signs: 05/01/23 07:20 Temperature 97.7 F L Temperature Source Temporal Pulse Rate 122 H Respiratory Rate 18 Blood Pressure 135/92 H Blood Pressure Mean 106 Pulse Ox 98 Oxygen Delivery Method Room Air Weight Weight: 96.7 kg Body Mass Index (BMI) 29.7 Physical Exam Const alert, oriented x3 and no apparent distress Constitutional Narrative: Elderly male, chronically ill-appearing, disheveled, sitting comfortably in bed, no acute distress. Answering questions appropriately but is insistent that he would like to go home. No active alcohol withdrawal symptoms noted at this time. General Appearance: cooperative and comfortable HEENT normocephalic, head/scalp atraumatic, hearing grossly normal bilaterally, nasal mucous membranes and turbinates normal and moist oral mucous membranes Eyes PERRL, EOMs intact bilaterally and conjunctivae normal Neck full ROM, no lymphadenopathy and supple Lymph Lymphatic: no lymphadenopathy noted Chest inspection of chest normal Resp normal respiratory effort, normal air movement, no use of accessory muscles and clear to auscultation bilaterally Cardio no murmurs and peripheral pulses 2+ throughout Cardio Narrative: Sinus tachycardia. GI normal to inspection, nondistended, normoactive bowel sounds, soft to palpation, non-tender and non-distended Back/Spine normal ROM Extremity no pedal edema Extremity Narrative: Chronic lower extremity wounds noted, do not appear to be acutely infected. Neuro moves all extremities and no focal motor deficits Psych mental status grossly normal Results Lab / Micro Data 05/01/23 07:55 05/01/23 07:55 Labs: Laboratory Results - last 24 hr 05/01/23 07:55: WBC 6.5, RBC 3.29 L, Hgb 12.5 L, Hct 36.6 L, MCV 111.2 H, MCH 38.0 H, MCHC 34.2, RDW Std Deviation 57.8 H, RDW Coeff of Valerio 14.1, Plt Count 176, MPV 9.6, Immature Gran % (Auto) 0.900, Neut % (Auto) 78.1 H, Lymph % (Auto) 9.5 L, [place] % (Auto) 11.0 H, Eos % (Auto) 0.2, Baso % (Auto) 0.3, Absolute Neuts (auto) 5.1, Absolute Lymphs (auto) 0.62 L, Nucleated RBC % 0, PT 16.8 H, INR 1.4, Sodium 134 L, Potassium 4.1, Chloride 97 L, Carbon Dioxide 18.0 L, Anion Gap 19 H, BUN 12, Creatinine 1.13, Estim Creat Clear Calc 71.26, Est GFR (MDRD) Af Amer 84, Est GFR (MDRD) Non-Af 70, BUN/Creatinine Ratio 10.6, Glucose 120 H, Calcium 8.7, Total Bilirubin 3.20 H, AST 72 H, ALT 60, Alkaline Phosphatase 135 H, Total Protein 7.1, Albumin 3.0 L, Globulin 4.1, Albumin/Globulin Ratio 0.7 L, Ethyl Alcohol < 3.0, Acetone Level MODERATE H 05/01/23 08:11: Urine Color Jacqueline, Urine Clarity Clear, Urine pH 6.0, Ur Specific [place] 1.020, Urine Protein 100 H, Urine Glucose (UA) Normal, Urine Ketones 150 A*, Urine Occult Blood 25 H, Urine Nitrite Negative, Urine Bilirubin 3 H, Urine Urobilinogen 4 H, Ur Leukocyte Esterase 500 H, Urine RBC 0 SEEN, Urine WBC >100 SEEN, Ur Squamous Epith Cells 0 SEEN, Urine Bacteria 1+, Urine Mucus 0 SEEN, Urine Opiates Screen NEGATIVE, Urine Methadone Screen NEGATIVE, Ur Barbiturates Screen NEGATIVE, Ur Phencyclidine Scrn NEGATIVE, Ur Amphetamines Screen NEGATIVE, MDMA (Ecstasy) Screen NEGATIVE, U Benzodiazepines Scrn NEGATIVE, Urine Cocaine Screen NEGATIVE, U Cannabinoids Screen NEGATIVE, Ur Drug Screen Comment Micro: Microbiology 05/01/23 07:55 Nasal Secretion SARS-CoV-2 Antigen (Rapid) - Final Rhythm Strip Rhythm Strip: Sinus Tach Rate: 115 Ectopy: None Imagaing Radiology Impression Chest X-Ray 05/01/23 07:28 IMPRESSION: No radiographic evidence of acute cardiopulmonary disease and unchanged when compared to 03/31/2023. Electronically Signed: Mendoza Ellis MD at 9:03 EST Reading Location ID and State: [address] [place] [address] , Service support , Assessment & Plan Assessment/Plan (1) Failure to thrive: PLAN: Plan Patient is a 63-year-old male who presented to [facility] ED via EMS for inability to take care of himself at home. 1. Failure to thrive, inability to take care of self at home, lack of capacity for medical decision making Patient lives at home with his mother, was found by EMS at home covered in his own feces and with feces spread throughout the house. 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 Patient insisting in the ED that he wants to go home, clearly has lack of understanding of the seriousness of his capability to take care of himself and his mother at home. ? Admit under inpatient status to [facility]. PT/OT/case management consulted. At this time, patient exhibits lack of capacity for medical decision-making, medical hold placed. Patient's mother has notably also been admitted, will be seen by Adult Protective Services during admission. 2. Alcohol abuse with high risk for alcohol withdrawal Patient with multiple ED encounters for acute alcohol intoxication. Patient den ies history of alcohol withdrawal but it is noted in the chart that he has a history of alcohol withdrawal seizures. Alcohol level 0 on this admission. Alcohol level notably was 454 in ED on 03/31/23, and level was 484 and 519 on previous ED visits in 2021. Patient reports last drink was around 7:30 PM on 04/30, day prior to admission. ? Patient developed sinus tachycardia and mild tremors in the ED. Given high concern for alcohol withdrawal, patient initiated on phenobarbital taper on 05/01. Will monitor closely. 3. Alcoholic ketoacidosis with malnutrition ? Anion gap of 17 noted on admission, UA showed 150 ketones. Presumed alcoholic ketoacidosis in setting of poor nutrition at home. Albumin 3.0 on admit, likely secondary to either malnutrition and/or mild underlying liver disease from alcohol abuse. Monitor daily labs. Nutrition consulted. 4. Suspected alcohol hepatitis ? AST 72, ALT 60, alk phos 135, total bilirubin 3.20 on admission. Suspect this is secondary to alcoholic hepatitis. Acute hepatitis panel ordered to rule out viral hepatitis. Right upper quadrant ultrasound ordered. Monitor CMP daily. 5. Macrocytic anemia ? Hemoglobin 12.5, MCV 111 on admission. Suspect secondary to nutritional deficiency as noted above. Vitamin B12 and folate ordered. Monitor CBC. Chronic medical conditions: ? Bilateral inguinal hernia: Enlarged scrotum noted on admission, no tenderness to palpation, no concern for incarcerated hernia. Outpatient follow-up. ? Reported history of CAD and hypertension: Only home medication is aspirin, suspect patient was not taking this at home. We will hold aspirin on admission. Monitor blood pressures. DVT prophylaxis: Lovenox CODE STATUS: Full code, unverified Expected disposition: TBD Total clinical time spent by myself addressing the patient's medical issues, reviewing all the data, and collaborating with patient's care team: 55 minutes. Charges/Coding Visit Charges Inpatient E&M: 65752 Init Hosp L2
[2023-05-01] MEDS: LORazepam 2 MG/ML Syringe IV (11:21)
[2023-05-01 11:45] LABS: Magnesium 2.5 mg/dL (1.6-2.6)
--- NOTE | 2023-05-01 14:17 | US_ITS ---
STUDY: ABDOMINAL ULTRASOUND - RIGHT UPPER QUADRANT REASON FOR VISIT: Male, 63 years old elevated LFTs, assess for RUQ pathology TECHNIQUE: Ultrasound evaluation of the right upper quadrant was performed with real-time and static hicks-scale imaging. TECHNICAL QUALITY: Adequate. COMPARISON: None. FINDINGS: Liver: The liver measures 21.1 cm. There is increased echogenicity consistent with fatty infiltration. The bile ducts are within normal limits. There is hepatic color flow. The direction of portal flow is hepatopetal. There is no demonstrated mass lesion. Gallbladder: Normal distended gallbladder. The gallbladder wall measures 2 mm. There is a negative sonographic Avendano''s sign. There is no pericholecystic fluid. There are multiple echogenic structures within the gallbladder, consistent with multiple gallstones. Common Bile Duct (C.B.D.): The common bile duct measures 5 mm. Pancreas: Normal size of the head, body and tail of the pancreas. There is normal echogenicity of the pancreas. There is no demonstrated pancreatic mass or cyst. Right Kidney: Normal size of the right kidney. The right kidney measures 12.0 cm. Normal renal cortex. The right cortex measures 1.4 cm. There is no demonstrated renal mass or cyst. There is no right hydronephrosis. US/Abdomen Limited IMPRESSION: 1. Cholelithiasis. 2. Fatty infiltration of the liver. Electronically Signed: Abiodun Jeong MD at 18:20 EST ,
[2023-05-01] MEDS: Phenobarbital 32.4 MG Tablet PO ×3 (15:47→23:04)
[2023-05-01] MEDS: hydrOXYzine PAM 25 MG Capsule 50 MG PO ×2 (18:59→23:04)
[2023-05-01] MEDS: Gabapentin 300 MG Capsule PO (18:59)
[2023-05-01] MEDS: 0.9% Saline Lock 10 ML Syringe IV (23:23)
[2023-05-02] MEDS: traZODone 100 MG Tablet PO ×2 (00:40→22:50)
[2023-05-02 01:00] VITALS: BP 109/70; PULSE 101; RESP 16; TEMP 36.8; O2SAT 97
[2023-05-02 02:00] VITALS: BP 101/70; PULSE 107; RESP 20; TEMP 37.2; O2SAT 92; O2SAT 94
--- NOTE | 2023-05-02 02:23 | NURSING ---
05/02/23: 0100- Patient had been assisted to the bathroom x2 around 0030 but was unable to urinate and requested to return to bed. Pt was assisted with same with x2 assist. Pt was unsteady on feet and needed assistance. at 0045 Patient notified nurse that he needed to go to the bathroom alone as he was unable to urinate with ladies in there. This nurse notified pt that it is unsafe and that staff must assist him. Pt argued with this nurse stating that he can do it without anyone assisting him and wants to be able to go to the bathroom through the night, when he wants without assistance. Pt continued to state over and over that he needed to use the commode. Urinal was offered but pt refused to use any devices and states he doesn't want to urinate in the bed. This nurse and WAYNE Phillips assisted patient into bathroom to use the commode. This nurse unfastened his brief and folded it down over his herniated scrotum, that is similar to the size of a volleyball. Pt glanced over his right shoulder at this nurse and then grabbed ahold of the railing on the left side and acted like he was going to fall forward or drop to the floor. Despite commands to patient to stand up he did not and all of his body weight was supported by this nurse and WAYNE Phillips. Pt was lowered to the floor gently on his knees. Pt then began crawling as fast as he could toward the bed. Patient has large abrasions to knees bilaterally, in multiple locations as well as many of his toes, due to crawling around on the floor at home, per report. Pt scrapped off a few of the scabs and his knee began bleeding. Care was provided to the opened scabbed area. Pt was repositioned with staff and purwick was placed. Pt continues to be on telemetry and continuous spo2. Bed alarm is on to the 2nd sensitivity. Lupton fall sign placed outside of door and pt now has fall bracelet due to being lowered to the floor. Vitals taken immediately when pt returned to bed and coma scale was completed and unchanged.
--- NOTE | 2023-05-02 02:48 | NURSING ---
nursing supv & dr aware of pt being lowered to knees by staff and no injury. pt had been moved closer to desk earlier in shift for safety.
[2023-05-02] MEDS: Phenobarbital 32.4 MG Tablet PO ×5 (05:55→22:54)
[2023-05-02] MEDS: hydrOXYzine PAM 25 MG Capsule 50 MG PO ×3 (05:55→18:51)
[2023-05-02] MEDS: Gabapentin 300 MG Capsule PO ×2 (05:56→14:30)
[2023-05-02 06:29] LABS: International Normalized Ratio 1.1; Prothrombin Time (Protime)PT. 14.3 SECONDS (11.7-14.9)
[2023-05-02] MEDS: Folic Acid 1 MG Tablet PO (07:40)
[2023-05-02] MEDS: Thiamine Hydrochloride 100 MG Tablet PO (07:40)
[2023-05-02] MEDS: Enoxaparin 40 MG/0.4 ML Syringe SC (07:40)
[2023-05-02 07:44] LABS: Hematocrit 31.4 % (40-54); Hemoglobin 10.5 g/dL (13.0-16.5); Mean Corp Hgb Conc 33.4 g/dL (32-36); Mean Corpuscular Hgb 37.6 pg (27.0-32.0); Mean Corpuscular Volume 112.5 fL (80-94); Mean Platelet Vol. 9.4 fl (6.2-12.0); Platelet Count 100 K/mm3 (150-450); RBC Distribution Width CV 13.9 % (11.6-14.6); RBC Distribution Width SD 57.4 fl (35.1-43.9); Red Blood Count 2.79 M/mm3 (4.6-6.2); White Blood Count 4.3 K/mm3 (4.4-11.0)
[2023-05-02 08:00] VITALS: BP 111/59; PULSE 88; RESP 16; TEMP 36.6; O2SAT 98
[2023-05-02 08:00] LABS: ALB/GLOB Ratio 0.6 RATIO (0.9-2.4); AST(SGOT) 26 U/L (15-37); Alanine Aminotransfer ALT/SGPT 37 U/L (16-61); Albumin, Serum 2.2 g/dL (3.2-5.0); Alkaline Phosphatase 99 U/L (45-117); Anion Gap 13 (5-15); BUN 10 mg/dL (7-18); BUN/Creat Ratio 15.2 RATIO (10-20); Chloride 97 mmol/L (98-107); Creatinine, Serum 0.66 mg/dL (0.70-1.30); EST Glomerular Filtration Rate 130 mL/min (>60); Est Glom Filt Rate - Afr Amer 158 mL/min (>60); Estimated Creatinine Clearance 122.01 ml/min; Globulin 3.8 g/dL (2.2-4.2); Glucose 95 mg/dL (74-106); Magnesium 2.3 mg/dL (1.6-2.6); Potassium 2.8 mmol/L (3.5-5.1); Sodium Level 131 mmol/L (136-145)
[2023-05-02] MEDS: Potassium Chloride Oral Tablet 20 MEQ 40 MEQ PO (10:45)
[2023-05-02] MEDS: Ensure Plus High Protein 120 ML LIQUID PO ×3 (10:46→22:49)
[2023-05-02] MEDS: Acetaminophen 325 MG Tablet 650 MG PO (10:51)
[2023-05-02 11:07] LABS: HEPATITIS B SURFACE AG Negative (Negative); Hep C Antibodies Non Reactive (Non Reactive); Hepatitis A IgM Antibody Negative (Negative); Hepatitis B Core AB IgM Negative (Negative)
--- NOTE | 2023-05-02 11:30 | PN.HOSP_ITS ---
Subjective Subjective No acute events overnight. Patient seen at bedside this morning. Sitting comfortably in bed, no acute distress. Was eating his breakfast when I arrived to the room. Patient does appear mildly sedated and was somewhat confused during our encounter, not answering all questions appropriately. Patient continues to state that he would like to go home, and he would like to take his mother home as well. He denies having any alcohol withdrawal symptoms this morning. Denies any other acute pain or discomfort. No other acute concerns morning. Objective Data Objective Data Vital Signs: Vital Signs Temp Pulse Resp BP Pulse Ox O2 Del Method O2 Flow Rate 97.8 F 88 16 111/59 L 98 Nasal Cannula 2 05/02/23 08:00 05/02/23 08:00 05/02/23 08:00 05/02/23 08:00 05/02/23 08:00 05/02/23 08:00 05/02/23 08:00 Oxygen Flow Rate (L/min) 2 Oxygen Delivery Method Nasal Cannula Weight: 92.76 kg Body Mass Index (BMI) 28.5 Intake & Output: Intake and Output for Last 24 Hours 04/30/23 05/01/23 05/02/23 23:59 23:59 23:59 Intake Total 2365.83 / 2865.83 1000 / 1000 Balance 2365.83 / 2865.83 1000 / 1000 Lab / Micro Data 05/02/23 07:20 05/02/23 07:20 Labs: Laboratory Results - last 24 hr 05/01/23 07:55: Magnesium 2.5, Folate 5.40 05/01/23 11:22: Hepatitis A IgM Ab Negative, Hep Bs Antigen Negative, Hep B Core IgM Ab Negative, Hepatitis C Ab (EIA) Non Reactive, Hep C Ab Comment Comment 05/02/23 05:52: PT 14.3, INR 1.1 05/02/23 07:20: WBC 4.3 L, RBC 2.79 L, Hgb 10.5 L, Hct 31.4 L, MCV 112.5 H, MCH 37.6 H, MCHC 33.4, RDW Std Deviation 57.4 H, RDW Coeff of Valerio 13.9, Plt Count 100 L, MPV 9.4, Sodium 131 L, Potassium 2.8 L, Chloride 97 L, Carbon Dioxide 21.0, Anion Gap 13, BUN 10, Creatinine 0.66 L, Estim Creat Clear Calc 122.01, Est GFR (MDRD) Af Amer 158, Est GFR (MDRD) Non-Af 130, BUN/Creatinine Ratio 15.2, Glucose 95, Calcium 8.0 L, Magnesium 2.3, Total Bilirubin 1.60 H, AST 26, ALT 37, Alkaline Phosphatase 99, Total Protein 6.0 L, Albumin 2.2 L, Globulin 3.8, Albumin/Globulin Ratio 0.6 L Micro: Microbiology 05/01/23 07:55 Nasal Secretion SARS-CoV-2 Antigen (Rapid) - Final Radiography Diagnostic Testing: Radiology Impression Abdomen Ultrasound 05/01/23 14:17 IMPRESSION: 1. Cholelithiasis. 2. Fatty infiltration of the liver. Electronically Signed: Abiodun Jeong MD at 18:20 EST , Rhythm Strip Rhythm Strip: Sinus Tach Rate: 115 Ectopy: None Physical Exam Const alert, oriented x3 and no apparent distress Constitutional Narrative: Elderly male, chronically ill-appearing, sitting comfortably in bed, no acute distress. Mildly sedated and confused this morning, not answering all questions appropriately. General Appearance: cooperative and comfortable HEENT normocephalic, head/scalp atraumatic, hearing grossly normal bilaterally, nasal mucous membranes and turbinates normal and moist oral mucous membranes Eyes PERRL, EOMs intact bilaterally and conjunctivae normal Neck full ROM, no lymphadenopathy and supple Lymph Lymphatic: no lymphadenopathy noted Chest inspection of chest normal Resp normal respiratory effort, normal air movement, no use of accessory muscles and clear to auscultation bilaterally Cardio no murmurs and peripheral pulses 2+ throughout Cardio Narrative: Sinus tachycardia. GI normal to inspection, nondistended, normoactive bowel sounds, soft to palpation, non-tender and non-distended Back/Spine normal ROM Extremity no pedal edema Extremity Narrative: Chronic lower extremity wounds noted, do not appear to be acutely infected. Neuro moves all extremities and no focal motor deficits Psych mental status grossly normal Assessment & Plan Assessment/Plan (1) Failure to thrive: PLAN: Plan Patient is a 63-year-old male who presented to [facility] ED via EMS for inability to take care of himself at home. 1. Failure to thrive, inability to take care of self at home, lack of capacity for medical decision making Patient lives at home with his mother, was found by EMS at home covered in his own feces and with feces spread throughout the house. 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 Patient insisting in the ED that he wants to go home, clearly has lack of understanding of the seriousness of his capability to take care of himself and his mother at home. ? PT/OT/case management consulted. Patient continues to exhibit lack of capacity for medical decision-making, medical hold in place. Patient's mother has notably also been admitted, will be seen by Adult Protective Services during admission. 2. Alcohol abuse with high risk for alcohol withdrawal Patient with multiple ED encounters for acute alcohol intoxication. Patient denies history of alcohol withdrawal but it is noted in the chart that he has a history of alcohol withdrawal seizures. Alcohol level 0 on this admission. Alcohol level notably was 454 in ED on 03/31/23, and level was 484 and 519 on previous ED visits in 2021. Patient reports last drink was around 7:30 PM on 04/30, day prior to admission. Patient developed sinus tachycardia and mild tremors in the ED. Given high concern for alcohol withdrawal, patient initiated on phenobarbital taper on 05/01 with as needed medications for alcohol withdrawal per order set. ? Withdrawal symptoms well controlled with phenobarb taper, continue taper. Case management following as above. Continue thiamine, folate, multivitamin supplement. 3. Alcoholic ketoacidosis with malnutrition Anion gap of 17 noted on admission, UA showed 150 ketones. Presumed alcoholic ketoacidosis in setting of poor nutrition at home. Albumin 3.0 on admit, likely secondary to either malnutrition and/or mild underlying liver disease from alcohol abuse. ? Appetite improving. Monitor daily labs. Nutrition consulted. 4. Suspected alcohol hepatitis AST 72, ALT 60, alk phos 135, total bilirubin 3.20 on admission. Suspect this is secondary to alcoholic hepatitis. Acute hepatitis panel negative. Right upper quadrant ultrasound cholelithiasis and fatty infiltration of the liver, no other acute findings. ? Liver enzymes improving, no right upper quadrant pain or discomfort. Monitor daily CMP. 5. Macrocytic anemia Hemoglobin 12.5, MCV 111 on admission. Suspect secondary to nutritional deficiency as noted above. Folate low end of normal, vitamin B12 pending. ? Monitor BMP. Thiamine, folate, MVA as noted above. Chronic medical conditions: ? Bilateral inguinal hernia: Enlarged scrotum noted on admission, no tenderness to palpation, no concern for incarcerated hernia. Outpatient follow-up. ? Reported history of CAD and hypertension: Only home medication is aspirin, suspect patient was not taking this at home. We will hold aspirin on admission. Monitor blood pressures. DVT prophylaxis: Lovenox CODE STATUS: Full code, unverified Expected disposition: TBD Total clinical time spent by myself addressing the patient's medical issues, reviewing all the data, and collaborating with patient's care team: 35 minutes. Charges/Coding Visit Charges Inpatient E&M: 75329 Subs Hosp L2
[2023-05-02 14:00] VITALS: BP 106/61; PULSE 73; RESP 14; TEMP 36.7; O2SAT 99
[2023-05-02 15:00] VITALS: BP 106/61; PULSE 73; RESP 16; TEMP 37.2; O2SAT 99
--- NOTE | 2023-05-02 16:29 | NURSING ---
1300-pt has wallet with a lot of money and two $20 bills laying on his food tray. this nurse attempted to get pt to let her lock up the wallet but he will not agree. im not worried about it. pt was then trying to give this nurse $20-$40 repeatedly. staff made aware and if pt attempts to give money away again, we will take it and lock it in pts drawer or place in sealed envelope.
--- NOTE | 2023-05-02 17:07 | NURSING ---
incont lg amt urine. total linen change completed. pt had stated earlier that if he stands he can pee but when we went to stand him, he said that he didnt feel like it at that time and asked if we could try later. pt agreeable to try a primofit.
[2023-05-02 22:34] VITALS: BP 122/72; PULSE 81; RESP 16; TEMP 36.8; O2SAT 99
[2023-05-03] MEDS: hydrOXYzine PAM 25 MG Capsule 50 MG PO ×2 (01:03→19:57)
[2023-05-03] MEDS: MELATONIN 3 MG TABLET PO ×2 (01:03→19:57)
[2023-05-03 03:00] VITALS: BP 111/72; PULSE 84; RESP 18; TEMP 36.7; O2SAT 100
[2023-05-03] MEDS: Phenobarbital 32.4 MG Tablet PO ×5 (05:10→22:26)
[2023-05-03] MEDS: Gabapentin 300 MG Capsule PO (05:11)
[2023-05-03 08:08] LABS: ALB/GLOB Ratio 0.7 RATIO (0.9-2.4); AST(SGOT) 35 U/L (15-37); Alanine Aminotransfer ALT/SGPT 33 U/L (16-61); Albumin, Serum 2.4 g/dL (3.2-5.0); Alkaline Phosphatase 97 U/L (45-117); Anion Gap 7 (5-15); BUN 10 mg/dL (7-18); BUN/Creat Ratio 17.1 RATIO (10-20); Calcium,Total 8.6 mg/dL (8.5-10.1); Chloride 96 mmol/L (98-107); Creatinine, Serum 0.58 mg/dL (0.70-1.30); EST Glomerular Filtration Rate 149 mL/min (>60); Est Glom Filt Rate - Afr Amer 180 mL/min (>60); Estimated Creatinine Clearance 138.84 ml/min; Globulin 3.5 g/dL (2.2-4.2); Glucose 99 mg/dL (74-106); Magnesium 1.8 mg/dL (1.6-2.6); Potassium 2.8 mmol/L (3.5-5.1); Protein, Total 5.9 g/dL (6.4-8.2); Sodium Level 133 mmol/L (136-145)
[2023-05-03 08:14] LABS: International Normalized Ratio 1.1; Prothrombin Time (Protime)PT. 14.2 SECONDS (11.7-14.9)
[2023-05-03] MEDS: Folic Acid 1 MG Tablet PO (09:07)
[2023-05-03] MEDS: Enoxaparin 40 MG/0.4 ML Syringe SC (09:07)
[2023-05-03] MEDS: Thiamine Hydrochloride 100 MG Tablet PO (09:07)
[2023-05-03 09:10] VITALS: BP 95/73; PULSE 93; RESP 18; TEMP 37.3; O2SAT 100
[2023-05-03] MEDS: Ensure Plus High Protein 120 ML LIQUID PO ×4 (09:12→19:57)
[2023-05-03 09:14] LABS: Vitamin B12 547 pg/mL (211-911)
--- NOTE | 2023-05-03 10:45 | CASEMGMT ---
Social Work Pt has been pink slipped by the [place] [employer] due to home situation and pt not caring for himself nor wanting help for this. SW reviewed case with physician and psychiatric evaluation requested. This telegraphic typewriter operator contacted PHOEBE Trimble and Mental Health Evaluation to take place. CELSA Melton
--- NOTE | 2023-05-03 10:45 | CASEMGMT ---
RN CM into pt room with , pt states he does not want to go to a SNF. Pt states he wants to go home and he is taking his mother with him. Hospitalist requests a psychiatric eval. Updated SW.
--- NOTE | 2023-05-03 14:42 | CASEMGMT ---
Social Work Psychiatric Assessment Reason for consult: [place] slip via PD Informant(s): Patient, medical record, Crisis - [facility] Chief Complaint: Confusion, concerns for ability to care for self/mother, history of alcohol use disorder Marital/Social History/Living Situation: Patient is a 65-year old male that resides in a condo with his 94-year-old mother. Pt self-reports otherwise and is a poor historian. Pt is reportedly his mother?s caregiver and POA. Pt reports his mother and father reside elsewhere and that his mother is 83. Pt?s father is and mother and pt live together. Pt reports caring for his mother but recently signed her out of a SNF, AMA which is of concern as pt's capacity for decision-making is questionable. 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 Mental Health Treatment/History: Patient denies mental health history but says ?some people would not agree.? Pt denies psych placements or mental health medications. Pt evaluated by crisis previously and concerns attributed to alcohol use/withdrawal. Substance Abuse Hx: History of substantial alcohol abuse. Cycle of alcohol abuse related medical complications ?- withdrawal, confusion, hepatitis, malnutrition, frequent falls etc. Reports he stopped drinking 12 hours ago, which is inaccurate. History of DUIs. Abuse Issues/Trauma HX: Denies Risk to Self/Others: Denies SI/HI, denies any prior attempts but some SI when a teenager. Triggers/Stressors/Risk factors: Deteriorating mental status, inability to care for self, alcoholism Coping Skills: fishing and golfing Support/Resources: reports Mother Mental Status Exam: ?Pt is oriented to self only. Aware of year but not the day, date, or president. In not oriented to where he is or why he is here. Presented as thinking he checked himself into a rehab facility. Appearance/General Behavior/Mood/Affect: Pt presents as disheveled, without clothes just a blanket. Clothes likely removed due to uncleanliness. Pt generally in a positive mood with congruent affect. Communication Pattern/Thought process: Pt communicates effectively but is a poor historian. Pt answers questions but inaccurately. Pt does not appear to be responding to internal stimuli currently. Pt reports he sees things that others do not ?because they don?t know what they are looking at.? Pt has to be redirected to answer questions frequently. Pt is confused but does not believe he is confused. General Intellectual Functioning:?? Average Judgment/Insight: Pt presents with poor judgment and insight. Assessment: Patient brought to ED on 05/01/2023 and pink-slipped by law enforcement for pt?s inability to care for self or mother which resides with patient. Patient has a significant history of emergency calls due to alcohol abuse which results in falls. Living conditions noted as being unsanitary. Pt found in his own urine and feces, not uncommon for patient. Pt has frequent falls with incontinence that has resulted in EMS assistance and/or hospitalization. EMS squad report notes feces throughout home, old and new feces on patient, uncleanliness, soaked in urine, and open cuts and scrapes. Pt noticed to have tremors and was combative to EMS and law enforcement. Pt was unwilling to come to the hospital. EMS, police and ED physician collaborated and PD pink-slipped patient for inability to care for self in order to bring patient and mother into the hospital for medical attention and for their own safety. Pt was not cooperative but brought to ED for treatment. Pt negative for alcohol and experiencing medical complications. It is noted that patient is likely malnourished, along with his mother who he reports caring for/is her HCPOA. Patient presents as a poor historian. ED physician had noted concerns for capacity to make decisions. Pt is oriented to self only, pt knows the year but not the day or month. Pt reports [place] as the president. Pt presents as believing he chose to come here for ?a week? and talks about being at [facility] for rehab in the past. Pt reports he lives in a condo alone and that his mother and father live in their own home. Pt?s father is , and mother resides with patient. SW reviewed patient?s eating, sleeping, toileting and hygiene habits. Pt reports he stopped drinking 12 hours ago (inaccurate) and that he would fall a lot from drinking. Pt reports he doesn?t always ?make it? to the toilet. Pt reports ?Sometimes I am in bed and I pee in the bed, because who cares. I don?t sleep in it though because I am not a dog.? Pt reports mother and him always eat dinner, when asked about breakfast and lunch pt reports it depends on when he wakes up. Pt reports his mother is a godsend that cares for him, mother is 94 and suspected to have malnutrition along with patient. Pt tries to get out of bed during assessment but is redirectable. Pt reports he just ?wanted to get in my other bed,? no other bed present in the room and when told this patient reports, ?My other bed is at [facility] (bar).? Patient requested SW to bring them a 12-pack. Pt is cooperative to answering questions but primarily tells stories related to the 1970?s. Pt denies any mental health history, psych placements, or suicide attempts. Pt admits to history of alcohol use since he was a teenager. Pt reports 1/5th of Nigerien whiskey daily along with Budweiser. Pt reports drinking from morning until night. Of note, last month patient was in ED with COMFORT levels extremely high, 454. Patient does not present as confused due to mental health condition, pt has no documented history of severe mental illness or psychiatric care (reviewed with Crisis who has one prior evaluation of patient with alcohol withdrawal related concerns). Pt has indicators of severe alcohol use disorder, medical concerns related to alcohol abuse, withdrawal symptoms possible delirium and ongoing confusion. It is unclear what patient?s baseline is as most hospital admissions have been similarly related to alcohol abuse and withdrawal symptoms with the confusion present. Whether patient is experiencing withdrawal related symptoms or alcohol induced dementia, patient presents as unable to make appropriate decisions. Pt is not appropriate for inpatient psychiatric placement as condition is not currently psychiatric in nature and patient is not suicidal or homicidal. Psych placement is very short-term without long-term solutions and likely discharge home to the community which provides other concerns due to substance abuse and HCPOA for mother. Pt does present as being unable to appropriately care for himself/ADL?s. Pt is a good candidate for APS involvement and possible guardianship and long-term nursing placement. Plan:. Psychiatric placement not currently indicated but can be revisited if further concerns arise. Patient referred to APS and would possibly benefit from guardianship and/or long-term care. Dulce Jimenes [employer], COST ACCOUNTING CLERK
[2023-05-03 15:43] VITALS: BP 135/97; PULSE 108; RESP 18; TEMP 36.9; O2SAT 99
--- NOTE | 2023-05-03 15:45 | CASEMGMT ---
Social Work SW placed call to Christin at APS. Christin does state there is an open case for both this pt and his mother. Christin states APS received a referral for pt and mother in March. APS attempted one visit and mother would not allow APS into the home. APS had planned to visit again this week. Per Christin, APS does not have any evidence at this time that pt is struggling in the community as they have not seen him. KG did broach topic of guardianship with Christin. Christin states that APS does not have notes on him and therefore they will not pursue guardianship. SW to continue to follow. CELSA Melton
--- NOTE | 2023-05-03 16:30 | CASEMGMT ---
Social Work SW conferred with PHOEBE Trimble. Psychiatric placement not indicated at this time. Pt with confusion and unable to clearly understand his decisions and outcomes. Pt lives with his 94 year old mother who is also currently hospitalized. Pt has no HCPOA on file. Pt has a sister Leti Gusman who lives in [place] listed on demographic sheet. VM left for Leti to discuss pt's care. SW awaiting return call. Pt discussed with physician. Pt may benefit from guardianship as he is not thinking clearly and has history of not caring for himself or his mother. SW to continue to follow for dc planning. CELSA Melton
--- NOTE | 2023-05-03 18:20 | PN.HOSP_ITS ---
Subjective Subjective Patient was seen and examined today, I approached him about going to an extended care facility for rehab services, he flatly refused and said he was going home, he stated that his mother could not be forced to go to a long term-he also remains delusional about his current ability to take care of himself. I talked briefly with his [id number] from [place], he states that his (patient's sister) has been shut out of making decisions for her brother, he states that the patient has been an alcoholic for many years and has never been in a voluntary detox program. I talked with social media campaign manager and it appears that raise his to be made for guardianship for the patient. Patient exhibits no aggressive behavior toward this examiner, he is alert and does not appear sedated. Objective Data Objective Data Vital Signs: Vital Signs Temp Pulse Resp BP Pulse Ox O2 Del Method O2 Flow Rate 98.5 F 108 H 18 135/97 H 99 Room Air 2 05/03/23 15:43 05/03/23 15:43 05/03/23 15:43 05/03/23 15:43 05/03/23 15:43 05/03/23 15:43 05/02/23 08:00 Oxygen Flow Rate (L/min) 2 Oxygen Delivery Method Room Air Weight: 92.76 kg Body Mass Index (BMI) 28.5 Intake & Output: Intake and Output for Last 24 Hours 05/01/23 05/02/23 05/03/23 23:59 23:59 23:59 Intake Total 2365.83 / 2865.83 1000 / 1700 1060 / 1060 Output Total 300 / 800 1150 / 1150 Balance 2365.83 / 2865.83 700 / 900 -90 / -90 Lab / Micro Data 05/02/23 07:20 05/03/23 07:00 Labs: Laboratory Results - last 24 hr 05/01/23 07:55: Vitamin B12 547 05/03/23 07:00: PT 14.2, INR 1.1, Sodium 133 L, Potassium 2.8 L, Chloride 96 L, Carbon Dioxide 30.0, Anion Gap 7, BUN 10, Creatinine 0.58 L, Estim Creat Clear Calc 138.84, Est GFR (MDRD) Af Amer 180, Est GFR (MDRD) Non-Af 149, BUN/Creatinine Ratio 17.1, Glucose 99, Calcium 8.6, Magnesium 1.8, Total Bilirubin 1.10 H, AST 35, ALT 33, Alkaline Phosphatase 97, Total Protein 5.9 L, Albumin 2.4 L, Globulin 3.5, Albumin/Globulin Ratio 0.7 L Micro: Microbiology 05/01/23 08:11 Urine, Clean Catch Urine Culture - Final GPC Poss Enterococcus sp 05/01/23 07:55 Nasal Secretion SARS-CoV-2 Antigen (Rapid) - Final Rhythm Strip Rhythm Strip: Sinus Tach Rate: 115 Ectopy: None Physical Exam Const alert and no apparent distress General Appearance: cooperative, well kempt and well developed Orientation / Consciousness: awake, oriented to person and oriented to place HEENT normocephalic, head/scalp atraumatic and moist oral mucous membranes Eyes PERRL, EOMs intact bilaterally and conjunctivae normal Neck supple, no JVD, thyroid normal and no carotid bruits General: trachea midline Resp normal respiratory effort, no retractions, no use of accessory muscles and clear to auscultation bilaterally Auscultation: Negative for rales, rhonchi or wheezes Cardio regular rate, regular rhythm, S1 normal heart sound, S2 normal heart sound, no murmurs, no rub and no gallops GI normal to inspection, nondistended, normoactive bowel sounds, soft to palpation, non-tender and non-distended Extremity no clubbing, cyanosis or edema Skin no rashes or lesions noted General Skin Exam: no breakdown Neuro oriented x3, CN's II-XII intact bilaterally, moves all extremities, no focal motor deficits and no sensory deficits noted Sensorium / Orientation: awake, alert, oriented to person and oriented to place Speech: speech normal Psych Psych Narrative: Patient is delusional, he is not hallucinating, he appears somewhat confrontational today Assessment & Plan Assessment/Plan (1) Failure to thrive: PLAN: Plan 1. Acute debility with self-neglect secondary to chronic alcohol abuse-patient will need placement in a skilled care facility, he will need a guardian appointed for this to happen #2 chronic alcoholism-patient is currently on phenobarbital, I will elect to taper the phenobarbital as the patient is able to tolerate it. #3 alcoholic hepatitis-patient's labs are improving #4 hypokalemia-patient was given potassium supplementation today, labs will be repeated This examiner does not feel the patient exhibits any signs or symptoms of malnutrition at this time Total clinical time spent by myself addressing the patient's medical issues, reviewing all of his data, and collaborating with patient's care team: 35 minutes Charges/Coding Visit Charges Inpatient E&M: 88054 Subs Hosp L2
[2023-05-03] MEDS: Potassium Chloride Oral Tablet 20 MEQ 60 MEQ PO (19:57)
[2023-05-03] MEDS: traZODone 100 MG Tablet PO (19:57)
[2023-05-03 20:00] VITALS: BP 115/65; PULSE 99; RESP 18; TEMP 36.9; O2SAT 100
[2023-05-03] MEDS: Acetaminophen 325 MG Tablet 650 MG PO (21:06)
[2023-05-03 23:20] VITALS: BMI 28.5
[2023-05-04] MEDS: Dicyclomine 10 MG Capsule 20 MG PO (03:58)
[2023-05-04] MEDS: hydrOXYzine PAM 25 MG Capsule 50 MG PO (03:58)
[2023-05-04 04:11] VITALS: BP 132/83; PULSE 98; RESP 18; TEMP 36.6; O2SAT 98
[2023-05-04] MEDS: Phenobarbital 32.4 MG Tablet PO ×4 (04:49→22:08)
[2023-05-04 08:14] LABS: International Normalized Ratio 1.1; Prothrombin Time (Protime)PT. 13.7 SECONDS (11.7-14.9)
[2023-05-04 08:25] LABS: ALB/GLOB Ratio 0.7 RATIO (0.9-2.4); AST(SGOT) 57 U/L (15-37); Alanine Aminotransfer ALT/SGPT 47 U/L (16-61); Albumin, Serum 2.8 g/dL (3.2-5.0); Alkaline Phosphatase 105 U/L (45-117); Anion Gap 7 (5-15); BUN 9 mg/dL (7-18); BUN/Creat Ratio 14.8 RATIO (10-20); Calcium,Total 8.8 mg/dL (8.5-10.1); Chloride 96 mmol/L (98-107); Creatinine, Serum 0.61 mg/dL (0.70-1.30); EST Glomerular Filtration Rate 143 mL/min (>60); Est Glom Filt Rate - Afr Amer 173 mL/min (>60); Estimated Creatinine Clearance 132.02 ml/min; Globulin 3.9 g/dL (2.2-4.2); Glucose 103 mg/dL (74-106); Potassium 3.7 mmol/L (3.5-5.1); Protein, Total 6.7 g/dL (6.4-8.2); Sodium Level 130 mmol/L (136-145)
--- NOTE | 2023-05-04 09:33 | CASEMGMT ---
Discharge Planning A list of SNF providers including quality and resource use data and consistent with the patient's preferred geographic region, medical needs, and insurance network was created in [employer] Guide.? This list was provided to the SW. Dunia Cheng Discharge Planning Asst.
--- NOTE | 2023-05-04 09:35 | CASEMGMT ---
Social Work KG completed chart review. Pt initial contact with KG at [facility] was in 2013. Pt has been admitted multiple times over the last 9 years for alcohol related illness. Pt has stated in the past that he has been using alcohol since a teenager. Past Trauma: Pt's , brother and best friend all in 2011. Pt indicated that this increased dependence on alcohol Alcohol Treatment: Pt was involved with [facility] ([facility] in 2013 for alcohol counseling. Pt's mother has requested detox and inpatient treatment in the past but pt has not been agreeable. Mental Health Treatment: [facility] Legal: Pt has been in and out of fpc and has worked with assistant clinical nurse manager Andrea Craft in the past. HCPOA: Mr. Craft, assistant clinical nurse manager, denies having a HCPOA on file for pt in 2021 Previous SNF: Pt was placed at [facility] in 2017 [facility] involvement: Referral made by ED KG 02/2019, 04/02 (Emma at [facility] states she is familiar with pt), 06/04 Referral made by ED KG Extensive phone conversation with pt's sister Leti. Leti states that pt has been an alcoholic most of his life. At baseline pt is alert and oriented when pt is sober. Pt lives with his mother and uses her finances for payment of all bills and uses her credit cards to buy alcohol. Pt does not want Leti involved in his life in spite of her efforts over the years to assist pt and pt's mother. Discussed fdc placement and possible need for guardianship. Leti is understanding of this. KG will continue to follow for dc planning. CELSA Melton
[2023-05-04] MEDS: Ensure Plus High Protein 120 ML LIQUID PO ×4 (09:41→21:34)
[2023-05-04] MEDS: Enoxaparin 40 MG/0.4 ML Syringe SC (09:41)
[2023-05-04] MEDS: Thiamine Hydrochloride 100 MG Tablet PO (09:41)
[2023-05-04] MEDS: Folic Acid 1 MG Tablet PO (09:41)
[2023-05-04 09:45] VITALS: BP 108/69; PULSE 98; RESP 18; TEMP 36.6; O2SAT 97
[2023-05-04 14:52] VITALS: BP 97/65; PULSE 104; RESP 18; TEMP 36.8; O2SAT 98
--- NOTE | 2023-05-04 16:28 | CASEMGMT ---
Discharge Planning A list of?SNF providers including quality and resource use data and consistent with the patient's preferred geographic region, medical needs, and insurance network were provided via email from the [employer] Guide link. Dunia Cheng, Discharge Planning Asst.
--- NOTE | 2023-05-04 16:33 | CASEMGMT ---
Discharge Planning A list of?SNF providers including quality and resource use data and consistent with the patient's preferred geographic region, medical needs, and insurance network were provided via email from the [employer] Guide link. Dunia Cheng, Discharge Planning Ast.
--- NOTE | 2023-05-04 18:01 | CASEMGMT ---
Social Work Phone call to stitching department supervisor Helder Barroslton's office and spoke wit Goldie. Goldie states there is no HCPOA on file for this pt. Pt's sister Leti reports Mr. 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 CELSA Melton
--- NOTE | 2023-05-04 20:00 | NURSING ---
pt was sitting in chair in his mothers room, screaming at nursing staff. pt yelling at staff very loudly. pt removed from mothers bedside and instructed he could not be in her room if he was going to act this way. Pt transferred via chair into his room 311. pt continue to continue to yell at staff. Pt informed if he continued we would be calling the vat house supervisor to speak with him.
--- NOTE | 2023-05-04 20:06 | PCM.PN.HOSP ---
Subjective Subjective Patient was seen and examined today, he still remains delusional and confused, he refused to consider going to a nursing facility, he told me this morning that he was out driving his car to the bank. Objective Data Objective Data Vital Signs: Vital Signs Temp Pulse Resp BP Pulse Ox O2 Del Method O2 Flow Rate 98.3 F 104 H 18 97/65 98 Room Air 2 05/04/23 14:52 05/04/23 14:52 05/04/23 14:52 05/04/23 14:52 05/04/23 14:52 05/04/23 14:52 05/02/23 08:00 Oxygen Flow Rate (L/min) 2 Oxygen Delivery Method Room Air Weight: 92.76 kg Body Mass Index (BMI) 28.5 Intake & Output: Intake and Output for Last 24 Hours 05/02/23 05/03/23 05/04/23 23:59 23:59 23:59 Intake Total 1000 / 1700 1060 / 1060 Output Total 300 / 800 1150 / 1425 1775 / 1775 Balance 700 / 900 -90 / -365 -1775 / -1775 Lab / Micro Data 05/02/23 07:20 05/04/23 07:55 Labs: Laboratory Results - last 24 hr 05/04/23 07:55: PT 13.7, INR 1.1, Sodium 130 L, Potassium 3.7, Chloride 96 L, Carbon Dioxide 27.0, Anion Gap 7, BUN 9, Creatinine 0.61 L, Estim Creat Clear Calc 132.02, Est GFR (MDRD) Af Amer 173, Est GFR (MDRD) Non-Af 143, BUN/Creatinine Ratio 14.8, Glucose 103, Calcium 8.8, Magnesium 2.0, Total Bilirubin 1.20 H, AST 57 H, ALT 47, Alkaline Phosphatase 105, Total Protein 6.7, Albumin 2.8 L, Globulin 3.9, Albumin/Globulin Ratio 0.7 L Micro: Microbiology 05/01/23 08:11 Urine, Clean Catch Urine Culture - Final GPC Poss Enterococcus sp 05/01/23 07:55 Nasal Secretion SARS-CoV-2 Antigen (Rapid) - Final Rhythm Strip Rhythm Strip: Sinus Tach Rate: 115 Ectopy: None Physical Exam Narrative alert and no apparent distress General Appearance: cooperative, well kempt and well developed Orientation / Consciousness: awake, oriented to person HEENT normocephalic, head/scalp atraumatic and moist oral mucous membranes Eyes PERRL, EOMs intact bilaterally and conjunctivae normal Neck supple, no JVD, thyroid normal and no carotid bruits General: trachea midline Resp normal respiratory effort, no retractions, no use of accessory muscles and clear to auscultation bilaterally Auscultation: Negative for rales, rhonchi or wheezes Cardio regular rate, regular rhythm, S1 normal heart sound, S2 normal heart sound, no murmurs, no rub and no gallops GI normal to inspection, nondistended, normoactive bowel sounds, soft to palpation, non-tender and non-distended Extremity no clubbing, cyanosis or edema Skin no rashes or lesions noted General Skin Exam: no breakdown Neuro Confused, CN's II-XII intact bilaterally, moves all extremities, no focal motor deficits and no sensory deficits noted Sensorium / Orientation: awake, alert Speech: speech normal Psych Psych Narrative: Patient is delusional, he is not hallucinating, he appears somewhat confrontational today Assessment & Plan Assessment/Plan (1) Unable to care for self: (2) Failure to thrive: PLAN: Plan 1. Acute debility with self-neglect secondary to chronic alcohol abuse-patient will need placement in a skilled care facility, he will need a guardian appointed for this to happen #2 chronic alcoholism-patient is currently on phenobarbital, I will elect to taper the phenobarbital as the patient is able to tolerate it. #3 alcoholic hepatitis-patient's labs are improving #4 hypokalemia-resolved at this time, monitor as needed #5 hyponatremia-repeat BMP tomorrow #6 chronic encephalopathy secondary to chronic alcoholism and alcohol abuse-I filled out guardianship papers for the patient today because he refuses to consider going to a nursing facility, I do not feel he can take care of himself and he would be a danger to himself going home alone. This examiner does not feel the patient exhibits any signs or symptoms of malnutrition at this time Total clinical time spent by myself addressing the patient's medical issues, reviewing all of his data, and collaborating with patient's care team: 35 minutes Charges/Coding Visit Charges Inpatient E&M: 15481 Subs Hosp L2
[2023-05-04 21:24] VITALS: BP 115/70; PULSE 96; RESP 18; TEMP 36.6; O2SAT 94
[2023-05-04] MEDS: 0.9% Saline Lock 10 ML Syringe IV (21:27)
[2023-05-04] MEDS: traZODone 100 MG Tablet PO (22:07)
[2023-05-05 03:54] VITALS: BP 99/63; PULSE 94; RESP 18; TEMP 36.6; O2SAT 99
[2023-05-05] MEDS: Phenobarbital 32.4 MG Tablet PO ×3 (04:00→16:51)
[2023-05-05 07:01] LABS: ALB/GLOB Ratio 0.8 RATIO (0.9-2.4); AST(SGOT) 33 U/L (15-37); Alanine Aminotransfer ALT/SGPT 42 U/L (16-61); Albumin, Serum 2.5 g/dL (3.2-5.0); Alkaline Phosphatase 94 U/L (45-117); Anion Gap 5 (5-15); BUN 9 mg/dL (7-18); BUN/Creat Ratio 15.4 RATIO (10-20); Calcium,Total 8.8 mg/dL (8.5-10.1); Chloride 98 mmol/L (98-107); Creatinine, Serum 0.58 mg/dL (0.70-1.30); EST Glomerular Filtration Rate 150 mL/min (>60); Est Glom Filt Rate - Afr Amer 181 mL/min (>60); Estimated Creatinine Clearance 138.84 ml/min; Globulin 3.3 g/dL (2.2-4.2); Glucose 103 mg/dL (74-106); Magnesium 1.8 mg/dL (1.6-2.6); Potassium 3.2 mmol/L (3.5-5.1); Protein, Total 5.8 g/dL (6.4-8.2); Sodium Level 133 mmol/L (136-145)
[2023-05-05 07:02] VITALS: O2SAT 98
[2023-05-05 07:03] LABS: International Normalized Ratio 1.1; Prothrombin Time (Protime)PT. 13.8 SECONDS (11.7-14.9)
[2023-05-05 08:00] VITALS: BP 117/63; PULSE 95; RESP 18; TEMP 36.6; O2SAT 99
[2023-05-05] MEDS: Folic Acid 1 MG Tablet PO (08:59)
[2023-05-05] MEDS: Thiamine Hydrochloride 100 MG Tablet PO (08:59)
[2023-05-05] MEDS: Enoxaparin 40 MG/0.4 ML Syringe SC (08:59)
[2023-05-05] MEDS: Ensure Plus High Protein 120 ML LIQUID PO ×3 (09:05→21:49)
[2023-05-05 10:00] VITALS: PULSE 80; RESP 18
[2023-05-05] MEDS: hydrOXYzine PAM 25 MG Capsule 50 MG PO ×3 (11:26→21:49)
[2023-05-05] MEDS: Acetaminophen 325 MG Tablet 650 MG PO (13:28)
[2023-05-05] MEDS: Gabapentin 300 MG Capsule PO (13:28)
[2023-05-05 14:57] VITALS: PULSE 95
--- NOTE | 2023-05-05 16:10 | NURSING ---
pt hospital phone taken out of room d/t dietary called and c/o pt making multiple calls to their unit asking for alcohol and also verbally inappropriate w/their staff-pt verbalizes that he disagrees with phone being removed-pt given menus to [facility] what he wants and all other needs can be met with the call light
--- NOTE | 2023-05-05 18:48 | CASEMGMT ---
Social Work This news writer did leave patient's sister a message to call this news writer regarding list of options sent yesterday. Have been in communication with [facility] Risk Management about potential need for guardian of this patient. Plan: Social work following and working through complex social issues for discharge planning. -PHOEBE Perez
--- NOTE | 2023-05-05 19:07 | PCM.PN.HOSP ---
Reason for Visit Reason for Visit: Diagnoses Other specified health status (05/01/23) Subjective Subjective Patient was seen and examined today, he has no evidence of any DTs at this time, he remains delusional however and argumentative at times, he insists that he will not go to a senior care facility, he states that he realizes his mother will need to go there but he will not go there, he wants to go home. He states he also wants to start drinking again. Objective Data Objective Data Vital Signs: Vital Signs Temp Pulse Resp BP Pulse Ox O2 Del Method O2 Flow Rate 97.9 F 95 18 117/63 99 Room Air 2 05/05/23 08:00 05/05/23 14:57 05/05/23 10:00 05/05/23 08:00 05/05/23 08:00 05/05/23 08:00 05/02/23 08:00 Oxygen Flow Rate (L/min) 2 Oxygen Delivery Method Room Air Weight: 92.76 kg Body Mass Index (BMI) 28.5 Intake & Output: Intake and Output for Last 24 Hours 05/03/23 05/04/23 05/05/23 23:59 23:59 23:59 Intake Total 1060 / 1060 400 / 400 1500 / 1500 Output Total 1150 / 1425 2375 / 2375 350 / 350 Balance -90 / -365 -1974 / 1150 / 1150 Lab / Micro Data 05/02/23 07:20 05/05/23 06:06 Labs: Laboratory Results - last 24 hr 05/05/23 06:06: PT 13.8, INR 1.1, Sodium 133 L, Potassium 3.2 L, Chloride 98, Carbon Dioxide 30.0, Anion Gap 5, BUN 9, Creatinine 0.58 L, Estim Creat Clear Calc 138.84, Est GFR (MDRD) Af Amer 181, Est GFR (MDRD) Non-Af 150, BUN/Creatinine Ratio 15.4, Glucose 103, Calcium 8.8, Magnesium 1.8, Total Bilirubin 0.80, AST 33, ALT 42, Alkaline Phosphatase 94, Total Protein 5.8 L, Albumin 2.5 L, Globulin 3.3, Albumin/Globulin Ratio 0.8 L Micro: Microbiology 05/01/23 08:11 Urine, Clean Catch Urine Culture - Final GPC Poss Enterococcus sp 05/01/23 07:55 Nasal Secretion SARS-CoV-2 Antigen (Rapid) - Final Rhythm Strip Rhythm Strip: Sinus Tach Rate: 115 Ectopy: None Physical Exam Narrative alert and no apparent distress General Appearance: cooperative, well kempt and well developed Orientation / Consciousness: awake, oriented to person HEENT normocephalic, head/scalp atraumatic and moist oral mucous membranes Eyes PERRL, EOMs intact bilaterally and conjunctivae normal Neck supple, no JVD, thyroid normal and no carotid bruits General: trachea midline Resp normal respiratory effort, no retractions, no use of accessory muscles and clear to auscultation bilaterally Auscultation: Negative for rales, rhonchi or wheezes Cardio regular rate, regular rhythm, S1 normal heart sound, S2 normal heart sound, no murmurs, no rub and no gallops GI normal to inspection, nondistended, normoactive bowel sounds, soft to palpation, non-tender and non-distended Extremity no clubbing, cyanosis or edema Skin no rashes or lesions noted General Skin Exam: no breakdown Neuro Confused, CN's II-XII intact bilaterally, moves all extremities, no focal motor deficits and no sensory deficits noted Sensorium / Orientation: awake, alert Speech: speech normal Psych Psych Narrative: Patient is delusional, he is not hallucinating, he appears somewhat confrontational today Assessment & Plan Assessment/Plan (1) Chronic alcohol dependence, continuous: (2) Unable to care for self: (3) Failure to thrive: PLAN: Plan 1. Acute debility with self-neglect secondary to chronic alcohol abuse-patient will need placement in a skilled care facility, he will need a guardian appointed for this to happen, again I filled out paperwork for this on 05/04/2023 #2 chronic alcoholism-patient is currently on phenobarbital, patient remains on his original taper schedule #3 alcoholic hepatitis-patient's labs are improving #4 hypokalemia-patient was given replacement potassium today, BMP will be performed tomorrow #5 hyponatremia-this is almost corrected, BMP will be performed tomorrow #6 chronic encephalopathy secondary to chronic alcoholism and alcohol abuse-I filled out guardianship papers for the patient because he refuses to consider going to a nursing facility, I do not feel he can take care of himself and he would be a danger to himself going home alone. He lives with his mother who is being placed in a custodial due to advanced dementia. This examiner does not feel the patient exhibits any signs or symptoms of malnutrition at this time Total clinical time spent by myself addressing the patient's medical issues, reviewing all of his data, and collaborating with patient's care team: 25 minutes Charges/Coding Visit Charges Inpatient E&M: 55579 Subs Hosp L2
--- NOTE | 2023-05-05 20:16 | NURSING ---
Pt continues to yell out. Pt said he saw car accident outside his room. No accident was seen. Pt unable to convince him otherwise. He continues to be impulsive.
[2023-05-05] MEDS: Potassium Chloride Oral Tablet 20 MEQ 40 MEQ PO (20:45)
[2023-05-05 21:30] VITALS: BP 116/80; PULSE 89; RESP 18; TEMP 36.4; O2SAT 100
[2023-05-05] MEDS: traZODone 100 MG Tablet PO (21:49)
[2023-05-05] MEDS: 0.9% Saline Lock 10 ML Syringe IV (21:49)
[2023-05-06] MEDS: MELATONIN 3 MG TABLET PO (01:44)
[2023-05-06] MEDS: Gabapentin 300 MG Capsule PO ×3 (01:44→20:08)
[2023-05-06] MEDS: Acetaminophen 325 MG Tablet 650 MG PO ×2 (02:11→09:33)
[2023-05-06] MEDS: hydrOXYzine PAM 25 MG Capsule 50 MG PO ×4 (02:11→21:32)
[2023-05-06 05:31] VITALS: BP 112/71; PULSE 82; RESP 18; TEMP 36.9; O2SAT 99
--- NOTE | 2023-05-06 07:35 | PN.HOSP_ITS ---
Reason for Visit Reason for Visit: Diagnoses Alcohol dependence, uncomplicated (05/01/23) Other specified health status (05/01/23) Subjective Subjective Patient is a 63-year-old gentleman with history of chronic alcohol dependence admitted with significant self-neglect. Objective Data Objective Data Vital Signs: Vital Signs Temp Pulse Resp BP Pulse Ox O2 Del Method O2 Flow Rate 98.5 F 82 18 112/71 99 Room Air 2 05/06/23 05:31 05/06/23 05:31 05/06/23 05:31 05/06/23 05:31 05/06/23 05:31 05/06/23 05:31 05/02/23 08:00 Oxygen Flow Rate (L/min) 2 Oxygen Delivery Method Room Air Weight: 92.76 kg Body Mass Index (BMI) 28.5 Intake & Output: Intake and Output for Last 24 Hours 05/04/23 05/05/23 05/06/23 23:59 23:59 23:59 Intake Total 400 / 400 1999 / 1999 200 / 200 Output Total 2375 / 2375 1050 / 1050 500 / 500 Balance -1974 / -1974 950 / 950 -300 / -300 Lab / Micro Data 05/02/23 07:20 05/06/23 07:39 Micro: Microbiology 05/01/23 08:11 Urine, Clean Catch Urine Culture - Final GPC Poss Enterococcus sp 05/01/23 07:55 Nasal Secretion SARS-CoV-2 Antigen (Rapid) - Final Rhythm Strip Rhythm Strip: Sinus Tach Rate: 115 Ectopy: None Physical Exam Narrative GENERAL: cooperative HEENT: Atraumatic; normocephalic EYES; Anicteric, Normal Conjunctiva NECK; supple, normal thyroid, RESPIRATORY: Diminished to auscultation CARDIOVASCULAR: Regular S1 S2, GI: soft, normoactive bowel sounds, : No Renal angle tenderness; EXTREMITIES: No edema, no clubbing, MUSCULOSKELETAL: no muscle wasting NEURO: Awake; no lateralizing signs. SKIN: No Rash PSYCH; Flat affect Assessment & Plan Assessment/Plan (1) Chronic alcohol dependence, continuous: (2) Unable to care for self: (3) Failure to thrive: PLAN: Plan Patient is a 63-year-old gentleman with history of chronic alcohol dependence admitted with significant self-neglect. 1. Physical debility ? With significant self-neglect. Patient has been admitted to regular nursing floor requested for PT OT eval. Suggestion was made to patient regarding being transferred to shelter facility which even he medically refuses. Paperwork for guardianship initiated since the assessment was made that patient could not take care of himself at home and is a danger to himself. Consult placed to case management/social science manager 2. Chronic alcohol dependence ? Placed on phenobarb taper 3. Hypokalemia ? Corrected per protocol 4. Hyponatremia ? Secondary to beer potomania monitoring with daily BMPs 5. Elevated transaminases ? Secondary to chronic alcohol use counseled on cessation 7. DVT prophylaxis ? Enoxaparin Time spent in the patient's overall evaluation,decision-making process, review of diagnostic data, adjustment of management, discussion with other providers, nursing nursing and ancillary staff involved in patient's care documentation, 35 minutes Charges/Coding Visit Charges Inpatient E&M: 26017 Subs Hosp L2
[2023-05-06 08:09] LABS: ALB/GLOB Ratio 0.7 RATIO (0.9-2.4); AST(SGOT) 37 U/L (15-37); Alanine Aminotransfer ALT/SGPT 49 U/L (16-61); Albumin, Serum 2.8 g/dL (3.2-5.0); Alkaline Phosphatase 107 U/L (45-117); Anion Gap 5 (5-15); BUN 10 mg/dL (7-18); BUN/Creat Ratio 13.1 RATIO (10-20); Calcium,Total 8.8 mg/dL (8.5-10.1); Chloride 98 mmol/L (98-107); Creatinine, Serum 0.76 mg/dL (0.70-1.30); EST Glomerular Filtration Rate 110 mL/min (>60); Est Glom Filt Rate - Afr Amer 133 mL/min (>60); Estimated Creatinine Clearance 105.96 ml/min; Globulin 3.9 g/dL (2.2-4.2); Glucose 112 mg/dL (74-106); Magnesium 1.8 mg/dL (1.6-2.6); Potassium 3.6 mmol/L (3.5-5.1); Protein, Total 6.7 g/dL (6.4-8.2); Sodium Level 131 mmol/L (136-145)
[2023-05-06 08:18] LABS: Prothrombin Time (Protime)PT. 12.9 SECONDS (11.7-14.9)
--- NOTE | 2023-05-06 09:57 | NURSING ---
pt continues to be very argumentative and loud today-pt given prn's for nerves when pt asked for nerve pill therapy currently in room with pt
[2023-05-06 11:00] VITALS: BP 108/77; PULSE 100; PULSE 80; RESP 18; TEMP 36.7; O2SAT 100
[2023-05-06] MEDS: LORazepam 2 MG/ML Syringe 1 MG IV (14:27)
[2023-05-06 20:06] VITALS: BP 103/70; PULSE 98; RESP 18; TEMP 37.1; O2SAT 100
[2023-05-06] MEDS: QUEtiapine 25 MG Tablet PO (20:08)
[2023-05-06] MEDS: traZODone 100 MG Tablet PO (21:32)
[2023-05-07 04:27] VITALS: BP 97/68; PULSE 100; RESP 18; TEMP 36.6; O2SAT 99
[2023-05-07] MEDS: hydrOXYzine PAM 25 MG Capsule 50 MG PO ×3 (04:30→18:33)
[2023-05-07] MEDS: Acetaminophen 325 MG Tablet 650 MG PO (04:30)
[2023-05-07] MEDS: Gabapentin 300 MG Capsule PO ×3 (04:30→21:07)
[2023-05-07 06:21] LABS: Absolute Lymphocyte Count 1.16 X10^3/uL (0.83-4.51); Absolute Neutrophil Count 2.3 X10^3/uL (2.0-7.7); Basophil# 0.04 X10^3/uL; Basophil% 0.9 % (0-1); Eosinophil# 0.07 X10^3/uL; Eosinophils% 1.6 % (0-5); Hematocrit 32.6 % (40-54); Hemoglobin 11.3 g/dL (13.0-16.5); Lymphocyte # 1.16 X10^3/ul (0.83-4.51); Lymphocyte % 26.5 % (19-41); Mean Corp Hgb Conc 34.7 g/dL (32-36); Mean Corpuscular Hgb 37.3 pg (27.0-32.0); Mean Corpuscular Volume 107.6 fL (80-94); Mean Platelet Vol. 9.7 fl (6.2-12.0); Monocyte# 0.78 X10^3/uL; Monocyte% 17.8 % (0-10); NRBC Flagged by Analyzer 0 % (0-5); Neutrophil # 2.31 X10^3/uL (2.7-7.7); Neutrophil % 52.7 % (47-70); Platelet Count 215 K/mm3 (150-450); RBC Distribution Width CV 14.6 % (11.6-14.6); RBC Distribution Width SD 57.6 fl (35.1-43.9); Red Blood Count 3.03 M/mm3 (4.6-6.2); White Blood Count 4.4 K/mm3 (4.4-11.0)
[2023-05-07 06:35] LABS: Prothrombin Time (Protime)PT. 12.9 SECONDS (11.7-14.9)
[2023-05-07 07:04] LABS: ALB/GLOB Ratio 0.8 RATIO (0.9-2.4); AST(SGOT) 33 U/L (15-37); Alanine Aminotransfer ALT/SGPT 45 U/L (16-61); Albumin, Serum 2.7 g/dL (3.2-5.0); Alkaline Phosphatase 108 U/L (45-117); Anion Gap 5 (5-15); BUN 11 mg/dL (7-18); BUN/Creat Ratio 15.3 RATIO (10-20); Calcium,Total 8.9 mg/dL (8.5-10.1); Chloride 100 mmol/L (98-107); Creatinine, Serum 0.72 mg/dL (0.70-1.30); EST Glomerular Filtration Rate 117 mL/min (>60); Est Glom Filt Rate - Afr Amer 142 mL/min (>60); Estimated Creatinine Clearance 111.85 ml/min; Globulin 3.6 g/dL (2.2-4.2); Glucose 112 mg/dL (74-106); Magnesium 1.9 mg/dL (1.6-2.6); Potassium 3.8 mmol/L (3.5-5.1); Protein, Total 6.3 g/dL (6.4-8.2); Sodium Level 130 mmol/L (136-145)
--- NOTE | 2023-05-07 07:05 | PN.HOSP_ITS ---
Reason for Visit Reason for Visit: Diagnoses Alcohol dependence, uncomplicated (05/01/23) Other specified health status (05/01/23) Subjective Subjective Seen complains of being anxious. Patient was started on Seroquel and Ativan as needed for anxiety. Guardianship still pending. Objective Data Objective Data Vital Signs: Vital Signs Temp Pulse Resp BP Pulse Ox O2 Del Method O2 Flow Rate 97.9 F 100 18 97/68 99 Room Air 2 05/07/23 04:27 05/07/23 04:27 05/07/23 04:27 05/07/23 04:27 05/07/23 04:27 05/07/23 04:27 05/02/23 08:00 Oxygen Flow Rate (L/min) 2 Oxygen Delivery Method Room Air Weight: 92.76 kg Body Mass Index (BMI) 28.5 Intake & Output: Intake and Output for Last 24 Hours 05/05/23 05/06/23 05/07/23 23:59 23:59 23:59 Intake Total 2000 / 2000 2400 / 2400 Output Total 1050 / 1050 500 / 500 1300 / 1300 Balance 950 / 950 1900 / 1900 -1300 / -1300 Lab / Micro Data 05/07/23 06:00 05/07/23 06:00 Labs: Laboratory Results - last 24 hr 05/06/23 07:30: PT 12.9, INR 1.0 05/06/23 07:39: Sodium 131 L, Potassium 3.6, Chloride 98, Carbon Dioxide 28.0, Anion Gap 5, BUN 10, Creatinine 0.76, Estim Creat Clear Calc 105.96, Est GFR (MDRD) Af Amer 133, Est GFR (MDRD) Non-Af 110, BUN/Creatinine Ratio 13.1, Glucose 112 H, Calcium 8.8, Magnesium 1.8, Total Bilirubin 0.70, AST 37, ALT 49, Alkaline Phosphatase 107, Total Protein 6.7, Albumin 2.8 L, Globulin 3.9, Albumin/Globulin Ratio 0.7 L 05/07/23 06:00: WBC 4.4, RBC 3.03 L, Hgb 11.3 L, Hct 32.6 L, MCV 107.6 H, MCH 37.3 H, MCHC 34.7, RDW Std Deviation 57.6 H, RDW Coeff of Valerio 14.6, Plt Count 215, MPV 9.7, Immature Gran % (Auto) 0.500, Neut % (Auto) 52.7, Lymph % (Auto) 26.5, [place] % (Auto) 17.8 H, Eos % (Auto) 1.6, Baso % (Auto) 0.9, Absolute Neuts (auto) 2.3, Absolute Lymphs (auto) 1.16, Nucleated RBC % 0, PT 12.9, INR 1.0, Sodium 130 L, Potassium 3.8, Chloride 100, Carbon Dioxide 25.0, Anion Gap 5, BUN 11, Creatinine 0.72, Estim Creat Clear Calc 111.85, Est GFR (MDRD) Af Amer 142, Est GFR (MDRD) Non-Af 117, BUN/Creatinine Ratio 15.3, Glucose 112 H, Calcium 8.9, Magnesium 1.9, Total Bilirubin 0.60, Direct Bilirubin 0.30, AST 33, ALT 45, Alkaline Phosphatase 108, Total Protein 6.3 L, Albumin 2.7 L, Globulin 3.6, Albumin/Globulin Ratio 0.8 L Micro: Microbiology 05/01/23 08:11 Urine, Clean Catch Urine Culture - Final GPC Poss Enterococcus sp 05/01/23 07:55 Nasal Secretion SARS-CoV-2 Antigen (Rapid) - Final Rhythm Strip Rhythm Strip: Sinus Tach Rate: 115 Ectopy: None Physical Exam Narrative GENERAL: cooperative HEENT: Atraumatic; normocephalic EYES; Anicteric, Normal Conjunctiva NECK; supple, normal thyroid, RESPIRATORY: Diminished to auscultation CARDIOVASCULAR: Regular S1 S2, GI: soft, normoactive bowel sounds, : No Renal angle tenderness; EXTREMITIES: No edema, no clubbing, MUSCULOSKELETAL: no muscle wasting NEURO: Awake; no lateralizing signs. SKIN: No Rash PSYCH; Flat affect Assessment & Plan Assessment/Plan (1) Chronic alcohol dependence, continuous: (2) Unable to care for self: (3) Failure to thrive: QUALIFIERS: Failure to thrive age range: in adult Qualified Code(s): R62.7 - Adult failure to thrive PLAN: Plan Patient is a 63-year-old gentleman with history of chronic alcohol dependence admitted with significant self-neglect. 1. Physical debility ? With significant self-neglect. Patient has been admitted to regular nursing floor requested for PT OT eval. Suggestion was made to patient regarding being [facility] [place] [facility] which even he medically refuses. Paperwork for guardianship initiated since the assessment was made that patient could not take care of himself at home and is a danger to himself. Consult placed to case management/social media marketing manager ? 05/07/2023; Case discussed with case management. Guardianship still pending 2. Chronic alcohol dependence ? Placed on phenobarb taper. Patient was also started on Seroquel at bedtime as well as Ativan as needed 3. Hypokalemia ? Corrected per protocol 4. Hyponatremia ? Secondary to beer potomania monitoring with daily BMPs 5. Elevated transaminases ? Secondary to chronic alcohol use counseled on cessation 7. DVT prophylaxis ? Enoxaparin Time spent in the patient's overall evaluation,decision-making process, review of diagnostic data, adjustment of management, discussion with other providers, nursing nursing and ancillary staff involved in patient's care documentation, 35 minutes Charges/Coding Visit Charges Inpatient E&M: 66130 Subs Hosp L2
[2023-05-07] MEDS: Folic Acid 1 MG Tablet PO (07:36)
[2023-05-07] MEDS: Thiamine Hydrochloride 100 MG Tablet PO (07:36)
[2023-05-07] MEDS: Enoxaparin 40 MG/0.4 ML Syringe SC (07:36)
[2023-05-07 07:51] VITALS: BP 102/53; PULSE 89; RESP 16; TEMP 36.4; O2SAT 94
[2023-05-07] MEDS: QUEtiapine 25 MG Tablet PO ×2 (08:33→20:08)
[2023-05-07] MEDS: LORazepam 1 MG Tablet PO ×2 (08:56→18:32)
--- NOTE | 2023-05-07 11:30 | CASEMGMT ---
Social Work - BIMS Assessment This program writer received update from staff that patient continues to be confused at times, and needing redirection. There has been a statement of expert evaluation completed for this patient, but after discussions with [facility] Risk Management questions did arise as to whether this was a matter of patient going through detox or a longer term cognitive issue. This program writer discussed with charge master coordinator today, who reports patient is done with phenobarbital taper for detox. Per RN, patient has been started on Seroquel and Ativan. Patient has been allowed to visit with his mother, who is also a patient on the same floor. Supports for this patient are extremely limited and tenuous at best. It s reported that relationship with his mother, whom the patient has been the primary caregiver of is co-dependent Both the patient and son presented to the hospital at the same time, living in reported deplorable conditions. Delmar is reported to have had long standing alcohol use issues. The patient has a sister, Leti Gusman who lives out of state in [place], [place]. Relationship is described as tenuous, with Leti being involved and supportive in the past, though met with resistance by the patient and patient's mother Padmaja. This program writer met with patient this morning, introducing to self and role, of need to complete a questionnaire to determine how patient is progressing during stay at hospital. Patient stated I know you, and we have talked before. Brief Interview for Mental Status (BIMS) 1Part I ? Repetition of three words Inform the resident that you are going to say three words and that he or she needs to remember the words and to repeat them. Say the three words: sock, blue and bed. Ask the resident to reproduce the three words and note the number after the first attempt: No word repeated (0 points) One word repeated (1 point) Two words repeated (2 points) All words repeated (3 points): Patient able to repeat question appropriately. 2Part II ? Temporal orientation A. Ask the resident what year is it right now and report their answer: Missed by >5 years or no answer (0 points) : Patient stated 1964 Missed by 2 ? 5 years (1 point) Missed by 1 year (2 points) Correct (3 points) B. Ask the resident what month we are in at the moment and report their answer: Missed by >1 month or no answer (0 points) Missed by 6 days to one month (1 point) Accurate within 5 days (2 points) - Stated April but did think it was the 24 of April. C. Ask the resident what day of the week is today and report their answer: Incorrect, or no answer (0 points) -Patient reported no Correct (1 point) - Stated Wednesday 3Part III ? Recall Tell the resident that you are going back to the earlier question and ask them to say the words that they were asked to repeat. If they are unable to remember a word, provide cues such as ?something to wear?,? a color?, ?a piece of furniture? A. Able to recall ?sock? No, could not recall (0 points) - Stated laverne Yes, after cueing ?something to wear? (1 point) Yes, no cue required (2 points) B. Able to recall ?blue? No, could not recall (0 points) Yes, after cueing ?color? (1 point) Yes, no cue required (2 points) - State Blue C. Able to recall ?bed? No, could not recall (0 points) - Stated Louann Yes, after cueing ?a piece of furniture? (1 point) Yes, no cue required (2 points) Total Score is 8 - falling into the Moderate range of cognitive impact. Additionally, patient told this program writer he was 33 years old, believed his father to have 3 months ago and unable to say where currently located. Stated I thought I was in [facility] but I was brought here, and that's okay. Patient reports belief that could leave today and relax, but to be honest I kind of like it here. When asked about the title i coordinator the patient stated It's not [place], It's not [place], and eventually gave up. Oriented that Matt Barrera is president. Patient appeared perplexed and asked how this happened. Explained patient President Holly was voted into office and patient asked was it a coup? Patient talked of they are about to tear down patient's home but could not tell this program writer who they are. Patient quite talkative, slightly rambling though easily directed by this program writer. Patient talked of having a counselor Tommie in the past, whom the patient talked to on the phone, but unable to tell this program writer any formal mental health diagnosis. Patient talked of using alcohol in the past, as well as selling drugs when the patient was in his 20's. Patient reported that has been in trouble with the law before, and does not like to follow the rules or to be told what to do. Patient stated you counselor people are good at what you do, if you do what I want. Patient asked this program writer if this program writer can get patient Ativan and that in return would get this program writer gifts. Discussed this sounds like bribery and not something this program writer can engage in. Patient laughed and stated, I guess this might be bribing you, and you are a good girl. Patient asked this program writer if this program writer ever hallucinates to which this program writer attempted to explore if patient has been experiencing hallucinations. Patient smiled and said no. Ysabel Miller in [facility] Risk that patient is still appearing to have some cognitive deficit in place. -NARDA Perez
[2023-05-07] MEDS: Na Biphos/Potassium Phosphate PACKET 1 PACKET PO ×2 (13:09→20:10)
[2023-05-07] MEDS: Ensure Plus High Protein 120 ML LIQUID PO (13:09)
[2023-05-07 14:08] VITALS: BP 108/61; PULSE 96; RESP 16; TEMP 37.1; O2SAT 100
--- NOTE | 2023-05-07 15:00 | CASEMGMT ---
Addendum entered and electronically signed by Laure Moon 05/18/23 16:48: Clarification, home number for Leti is [phone]. Original Note: Social Work - family update/discharge planning Called patient's sister Leti today at [phone] (home number). Leti answered the phone; indicated had not received the VM this song writer left on cell phone ([phone]) on 05.05.23. Leti reports had received the [facility] list of SNFs and the only facility familiar with is [facility]. Leti asked if possible to get a list for [facility], as patient's 95 year old aunt lives there and might be nice for patient's mother to live closer to her sibling. Leti wondering about whether patient and patient's mother would do better if allowed to be in the same facility. Leti shared that considered prior discussions with hospital manager social responsibility, and Leti reports to feel unable and unwilling to be a legal guardian for patient, or their mother. Leti shared a tenuous relationship with patient throughout the years, with Leti being the oldest child and Delmar the youngest. Leti shared that their mother has always been very devoted to Delmar, often getting Delmar out of pinches and basically doing whatever Delmar wanted or needed, even believing some of Delmar's delusional thinking throughout the years. Leti reports when patient's brother Davon from alcohol related issues, then the mother Padmaja compensated, wanting to ensure that this patient's needs were always met. Leti reports that based on how Delmar have acted in the past, Leti does not see her being guardian would be helpful; envisions much fighting and general resistance to anything Leti has to say. Leti reports that still wants to be involved, and to care about her family, but does not feel able to be in a position of legal decision making. Much supportive listening and encouragement provided. Leti reported patient receives disability for the last 9 years or so after patient was in coma. Leti shared that patient has had a drinking problem for over 30 years, and at times could drink a gallon of vodka a day. This song writer updated Discharge Professor Of Business Administration to request for a [facility] list. Message has been send to [facility] Risk on likely need for a guardian. . Plan: SW following and working through social issues to help formulate a safe discharge plan for this patient. -Laure LABOY
--- NOTE | 2023-05-07 15:47 | CASEMGMT ---
Discharge Planning A list of SNF providers including quality and resource use data and consistent with the patient's preferred geographic region, medical needs, and insurance network were provided via (email/text message) from the [employer] Guide link. Dunia Cheng, Discharge Planning Asst.
[2023-05-07] MEDS: traZODone 100 MG Tablet PO (20:14)
[2023-05-07 20:20] VITALS: BP 116/78; PULSE 96; RESP 18; TEMP 36.7; O2SAT 100
[2023-05-07] MEDS: MELATONIN 3 MG TABLET PO (21:07)
[2023-05-08 05:39] VITALS: BP 127/82; PULSE 80; RESP 16; TEMP 35.8; O2SAT 100
[2023-05-08] MEDS: Na Biphos/Potassium Phosphate PACKET 1 PACKET PO ×3 (05:45→21:01)
[2023-05-08] MEDS: hydrOXYzine PAM 25 MG Capsule 50 MG PO ×2 (05:47→22:36)
[2023-05-08] MEDS: LORazepam 1 MG Tablet PO ×2 (06:49→15:27)
--- NOTE | 2023-05-08 07:31 | PCM.PN.HOSP ---
Reason for Visit Reason for Visit: Diagnoses Alcohol dependence, uncomplicated (05/01/23) Adult failure to thrive (05/01/23) Other specified health status (05/01/23) Subjective Subjective Patient seen, still insist on going home with history of going to [place] [facility]. Patient's guardianship pending Objective Data Objective Data Vital Signs: Vital Signs Temp Pulse Resp BP Pulse Ox O2 Del Method O2 Flow Rate 96.5 F L 80 16 127/82 H 100 Room Air 2 05/08/23 05:39 05/08/23 05:39 05/08/23 05:39 05/08/23 05:39 05/08/23 05:39 05/08/23 05:39 05/02/23 08:00 Oxygen Flow Rate (L/min) 2 Oxygen Delivery Method Room Air Weight: 92.76 kg Body Mass Index (BMI) 28.5 Intake & Output: Intake and Output for Last 24 Hours 05/06/23 05/07/23 05/08/23 23:59 23:59 23:59 Intake Total 2400 / 2400 800 / 800 300 / 300 Output Total 500 / 500 1700 / 1700 1500 / 1500 Balance 1900 / 1900 -900 / -900 -1200 / -1200 Lab / Micro Data 05/08/23 09:09 05/08/23 06:55 Micro: Microbiology 05/01/23 08:11 Urine, Clean Catch Urine Culture - Final GPC Poss Enterococcus sp 05/01/23 07:55 Nasal Secretion SARS-CoV-2 Antigen (Rapid) - Final Rhythm Strip Rhythm Strip: Sinus Tach Rate: 115 Ectopy: None Physical Exam Narrative GENERAL: cooperative HEENT: Atraumatic; normocephalic EYES; Anicteric, Normal Conjunctiva NECK; supple, normal thyroid, RESPIRATORY: Diminished to auscultation CARDIOVASCULAR: Regular S1 S2, GI: soft, normoactive bowel sounds, : No Renal angle tenderness; EXTREMITIES: No edema, no clubbing, MUSCULOSKELETAL: no muscle wasting NEURO: Awake; no lateralizing signs. SKIN: No Rash PSYCH; Flat affect Assessment & Plan Assessment/Plan (1) Chronic alcohol dependence, continuous: (2) Unable to care for self: (3) Failure to thrive: QUALIFIERS: Failure to thrive age range: in adult Qualified Code(s): R62.7 - Adult failure to thrive PLAN: Plan Patient is a 63-year-old gentleman with history of chronic alcohol dependence admitted with significant self-neglect. 1. Physical debility ? With significant self-neglect. Patient has been admitted to regular nursing floor requested for PT OT eval. Suggestion was made to patient regarding being transferred to [facility] which even he medically refuses. Paperwork for guardianship initiated since the assessment was made that patient could not take care of himself at home and is a danger to himself. Consult placed to case management/social services analyst ? 05/07/2023; Case discussed with case management. Guardianship still pending 2. Chronic alcohol dependence ? Placed on phenobarb taper. Patient was also started on Seroquel at bedtime as well as Ativan as needed 3. Hypokalemia ? Corrected per protocol 4. Hyponatremia ? Secondary to beer potomania monitoring with daily BMPs 5. Elevated transaminases ? Secondary to chronic alcohol use counseled on cessation 7. DVT prophylaxis ? Enoxaparin Time spent in the patient's overall evaluation,decision-making process, review of diagnostic data, adjustment of management, discussion with other providers, nursing nursing and ancillary staff involved in patient's care documentation, 25 minutes Charges/Coding Visit Charges Inpatient E&M: 44036 [facility] Hosp L1
[2023-05-08] MEDS: Folic Acid 1 MG Tablet PO (07:38)
[2023-05-08] MEDS: Thiamine Hydrochloride 100 MG Tablet PO (07:38)
[2023-05-08 08:11] LABS: ALB/GLOB Ratio 0.7 RATIO (0.9-2.4); AST(SGOT) 151 U/L (15-37); Alanine Aminotransfer ALT/SGPT 133 U/L (16-61); Albumin, Serum 2.6 g/dL (3.2-5.0); Alkaline Phosphatase 170 U/L (45-117); Anion Gap 7 (5-15); BUN 9 mg/dL (7-18); BUN/Creat Ratio 14.3 RATIO (10-20); Calcium,Total 8.6 mg/dL (8.5-10.1); Chloride 102 mmol/L (98-107); Creatinine, Serum 0.63 mg/dL (0.70-1.30); EST Glomerular Filtration Rate 136 mL/min (>60); Est Glom Filt Rate - Afr Amer 165 mL/min (>60); Estimated Creatinine Clearance 127.82 ml/min; Globulin 3.8 g/dL (2.2-4.2); Glucose 112 mg/dL (74-106); Potassium 4.1 mmol/L (3.5-5.1); Protein, Total 6.4 g/dL (6.4-8.2); Sodium Level 133 mmol/L (136-145)
[2023-05-08 09:17] LABS: Absolute Lymphocyte Count 1.03 X10^3/uL (0.83-4.51); Absolute Neutrophil Count 3.4 X10^3/uL (2.0-7.7); Basophil# 0.03 X10^3/uL; Basophil% 0.6 % (0-1); Eosinophil# 0.06 X10^3/uL; Eosinophils% 1.2 % (0-5); Hematocrit 34.8 % (40-54); Hemoglobin 12.2 g/dL (13.0-16.5); Lymphocyte # 1.03 X10^3/ul (0.83-4.51); Mean Corp Hgb Conc 35.1 g/dL (32-36); Mean Corpuscular Hgb 38.4 pg (27.0-32.0); Mean Corpuscular Volume 109.4 fL (80-94); Mean Platelet Vol. 9.3 fl (6.2-12.0); Monocyte# 0.66 X10^3/uL; Monocyte% 12.8 % (0-10); NRBC Flagged by Analyzer 0 % (0-5); Neutrophil # 3.36 X10^3/uL (2.7-7.7); Platelet Count 308 K/mm3 (150-450); RBC Distribution Width CV 14.6 % (11.6-14.6); RBC Distribution Width SD 58.9 fl (35.1-43.9); Red Blood Count 3.18 M/mm3 (4.6-6.2); White Blood Count 5.2 K/mm3 (4.4-11.0)
[2023-05-08] MEDS: QUEtiapine 25 MG Tablet PO ×2 (10:11→21:01)
[2023-05-08] MEDS: Enoxaparin 40 MG/0.4 ML Syringe SC (10:11)
[2023-05-08] MEDS: Gabapentin 300 MG Capsule PO (15:27)
[2023-05-08] MEDS: Ondansetron 8 MG Tablet PO (15:27)
[2023-05-08 20:44] VITALS: BP 114/95; PULSE 86; RESP 16; TEMP 36.6; O2SAT 100
[2023-05-08] MEDS: MELATONIN 3 MG TABLET PO (20:59)
[2023-05-08] MEDS: traZODone 100 MG Tablet PO (20:59)
[2023-05-08] MEDS: Dicyclomine 10 MG Capsule 20 MG PO (21:06)
[2023-05-09] MEDS: LORazepam 1 MG Tablet PO ×3 (00:31→16:21)
[2023-05-09] MEDS: Gabapentin 300 MG Capsule PO ×3 (00:31→16:22)
[2023-05-09 05:49] VITALS: BP 109/62; PULSE 84; RESP 16; TEMP 36.9; O2SAT 98
[2023-05-09] MEDS: Na Biphos/Potassium Phosphate PACKET 1 PACKET PO ×3 (05:51→21:41)
[2023-05-09] MEDS: hydrOXYzine PAM 25 MG Capsule 50 MG PO ×4 (05:51→21:35)
[2023-05-09 06:48] LABS: Absolute Lymphocyte Count 1.26 X10^3/uL (0.83-4.51); Absolute Neutrophil Count 1.6 X10^3/uL (2.0-7.7); Basophil# 0.04 X10^3/uL; Basophil% 1.1 % (0-1); Eosinophil# 0.07 X10^3/uL; Lymphocyte # 1.26 X10^3/ul (0.83-4.51); Lymphocyte % 35.6 % (19-41); Mean Corp Hgb Conc 33.3 g/dL (32-36); Mean Corpuscular Hgb 36.4 pg (27.0-32.0); Mean Corpuscular Volume 109.1 fL (80-94); Mean Platelet Vol. 9.7 fl (6.2-12.0); Monocyte# 0.56 X10^3/uL; Monocyte% 15.8 % (0-10); NRBC Flagged by Analyzer 0 % (0-5); Neutrophil # 1.59 X10^3/uL (2.7-7.7); Neutrophil % 44.9 % (47-70); Platelet Count 287 K/mm3 (150-450); RBC Distribution Width CV 14.4 % (11.6-14.6); RBC Distribution Width SD 57.5 fl (35.1-43.9); Red Blood Count 2.75 M/mm3 (4.6-6.2); White Blood Count 3.5 K/mm3 (4.4-11.0)
[2023-05-09 07:03] LABS: Anion Gap 7 (5-15); BUN 7 mg/dL (7-18); BUN/Creat Ratio 12.5 RATIO (10-20); Calcium,Total 8.1 mg/dL (8.5-10.1); Chloride 102 mmol/L (98-107); Creatinine, Serum 0.56 mg/dL (0.70-1.30); EST Glomerular Filtration Rate 157 mL/min (>60); Est Glom Filt Rate - Afr Amer 190 mL/min (>60); Glucose 89 mg/dL (74-106); Potassium 3.4 mmol/L (3.5-5.1); Sodium Level 137 mmol/L (136-145)
--- NOTE | 2023-05-09 07:15 | PN.HOSP_ITS ---
Reason for Visit Reason for Visit: Diagnoses Alcohol dependence, uncomplicated (05/01/23) Adult failure to thrive (05/01/23) Other specified health status (05/01/23) Subjective Subjective Patient seen diagnostic data reviewed significant for potassium of 3.4 replacement initiated. Patient awaiting guardianship prior to decision being made regarding his disposition SNF (patient is currently not interested in being discharged to SNF, his preference would be to be discharged home) Objective Data Objective Data Vital Signs: Vital Signs Temp Pulse Resp BP Pulse Ox O2 Del Method O2 Flow Rate 98.4 F 84 16 109/62 98 Room Air 2 05/09/23 05:49 05/09/23 05:49 05/09/23 05:49 05/09/23 05:49 05/09/23 05:49 05/09/23 05:49 05/02/23 08:00 Oxygen Flow Rate (L/min) 2 Oxygen Delivery Method Room Air Weight: 92.76 kg Body Mass Index (BMI) 28.5 Intake & Output: Intake and Output for Last 24 Hours 05/07/23 05/08/23 05/09/23 23:59 23:59 23:59 Intake Total 800 / 800 300 / 700 700 / 700 Output Total 1700 / 1700 1500 / 1500 Balance -900 / -900 -1200 / -800 700 / 700 Lab / Micro Data 05/09/23 05:30 05/09/23 05:30 Labs: Laboratory Results - last 24 hr 05/08/23 06:55: WBC Cancelled, Corrected WBC Cancelled, RBC Cancelled, Hgb Cancelled, Hct Cancelled, MCV Cancelled, MCH Cancelled, MCHC Cancelled, RDW Std Deviation Cancelled, RDW Coeff of Valerio Cancelled, Plt Count Cancelled, MPV Cancelled, Immature Gran % (Auto) Cancelled, Neut % (Auto) Cancelled, Lymph % (Auto) Cancelled, [place] % (Auto) Cancelled, Eos % (Auto) Cancelled, Baso % (Auto) Cancelled, Absolute Neuts (auto) Cancelled, Absolute Lymphs (auto) Cancelled, Total Counted Cancelled, Neutrophils % (Manual) Cancelled, Band Neutrophils % Cancelled, Lymphocytes % (Manual) Cancelled, Monocytes % (Manual) Cancelled, Eosinophils % (Manual) Cancelled, Basophils % (Manual) Cancelled, Metamyelocytes % Cancelled, Myelocytes % Cancelled, Promyelocytes % Cancelled, Blast Cells % Cancelled, Plasma Cell % (Manual) Cancelled, Other Cells % Cancelled, Nucleated RBC % Cancelled, Nucleated RBCs/100 WBC Cancelled, Differential Comment Cancelled, Diff Path Review Cancelled, Hypersegmented Neuts Cancelled, Atypical Lymphocytes Cancelled, Reactive Lymphocytes Cancelled, Smudge Cells Cancelled, Toxic Granulation Cancelled, Toxic Vacuolation Cancelled, Dohle Bodies Cancelled, Germán Rods Cancelled, Platelet Estimate Cancelled, Plt Morphology Comment Cancelled, RBC Morphology Cancelled 05/08/23 06:55: RBC Morphology Cancelled, Polychromasia Cancelled, Hypochromasia Cancelled, Poikilocytosis Cancelled, Basophilic Stippling Cancelled, Anisocytosis Cancelled, Microcytosis Cancelled, Macrocytosis Cancelled, Spherocytes Cancelled, Sickle Cells Cancelled, Target Cells Cancelled, Tear Drop Cells Cancelled, Ovalocytes Cancelled, Stomatocytes Cancelled, [place] Bodies Cancelled, Vantage Cells Cancelled, Bite Cells Cancelled, Crenated Cell Cancelled, Acanthocytes (Spur) Cancelled, Rouleaux Cancelled, Schistocytes Cancelled, Sodium 133 L, Potassium 4.1, Chloride 102, Carbon Dioxide 24.0, Anion Gap 7, BUN 9, Creatinine 0.63 L, Estim Creat Clear Calc 127.82, Est GFR (MDRD) Af Amer 165, Est GFR (MDRD) Non-Af 136, BUN/Creatinine Ratio 14.3, Glucose 112 H , Calcium 8.6, Total Bilirubin 0.80, AST 151 H, ALT 133 H, Alkaline Phosphatase 170 H, Total Protein 6.4, Albumin 2.6 L, Globulin 3.8, Albumin/Globulin Ratio 0.7 L 05/08/23 09:09: WBC 5.2, RBC 3.18 L, Hgb 12.2 L, Hct 34.8 L, MCV 109.4 H, MCH 38.4 H, MCHC 35.1, RDW Std Deviation 58.9 H, RDW Coeff of Valerio 14.6, Plt Count 308, MPV 9.3, Immature Gran % (Auto) 0.400, Neut % (Auto) 65.0, Lymph % (Auto) 20.0, [place] % (Auto) 12.8 H, Eos % (Auto) 1.2, Baso % (Auto) 0.6, Absolute Neuts (auto) 3.4, Absolute Lymphs (auto) 1.03, Nucleated RBC % 0 05/09/23 05:30: WBC 3.5 L, RBC 2.75 L, Hgb 10.0 L, Hct 30.0 L, MCV 109.1 H, MCH 36.4 H, MCHC 33.3 D, RDW Std Deviation 57.5 H, RDW Coeff of Valerio 14.4, Plt Count 287, MPV 9.7, Immature Gran % (Auto) 0.600, Neut % (Auto) 44.9 L, Lymph % (Auto) 35.6, [place] % (Auto) 15.8 H, Eos % (Auto) 2.0, Baso % (Auto) 1.1 H, Absolute Nyla ts (auto) 1.6 L, Absolute Lymphs (auto) 1.26, Nucleated RBC % 0, Sodium 137, Potassium 3.4 L, Chloride 102, Carbon Dioxide 28.0, Anion Gap 7, BUN 7, Creat inine 0.56 L, Estim Creat Clear Calc 143.80, Est GFR (MDRD) Af Amer 190, Est GFR (MDRD) Non-Af 157, BUN/Creatinine Ratio 12.5, Glucose 89, Calcium 8.1 L Micro: Microbiology 05/01/23 08:11 Urine, Clean Catch Urine Culture - Final GPC Poss Enterococcus sp 05/01/23 07:55 Nasal Secretion SARS-CoV-2 Antigen (Rapid) - Final Rhythm Strip Rhythm Strip: Sinus Tach Rate: 115 Ectopy: None Physical Exam Narrative GENERAL: cooperative HEENT: Atraumatic; normocephalic EYES; Anicteric, Normal Conjunctiva NECK; supple, normal thyroid, RESPIRATORY: Diminished to auscultation CARDIOVASCULAR: Regular S1 S2, GI: soft, normoactive bowel sounds, : No Renal angle tenderness; EXTREMITIES: No edema, no clubbing, MUSCULOSKELETAL: no muscle wasting NEURO: Awake; no lateralizing signs. SKIN: No Rash PSYCH; Flat affect Assessment & Plan Assessment/Plan (1) Chronic alcohol dependence, continuous: (2) Unable to care for self: (3) Failure to thrive: QUALIFIERS: Failure to thrive age range: in adult Qualified Code(s): R62.7 - Adult failure to thrive PLAN: Plan Patient is a 63-year-old gentleman with history of chronic alcohol dependence admitted with significant self-neglect. 1. Physical debility ? With significant self-neglect. Patient has been admitted to regular nursing floor requested for PT OT eval. Suggestion was made to patient regarding being transferred to nursing home facility which even he medically refuses. Paperwork for guardianship initiated since the assessment was made that patient could not take care of himself at home and is a danger to himself. Consult placed to case management/social insurance administrator ? 05/07/2023; Case discussed with case management. Guardianship still pending 2. Chronic alcohol dependence ? Placed on phenobarb taper. Patient was also started on Seroquel at bedtime as well as Ativan as needed 3. Hypokalemia ? Corrected per protocol 4. Hyponatremia ? Secondary to beer potomania monitoring with daily BMPs ? 05/09/2023 potassium 3.4 additional replacement given 5. Elevated transaminases ? Secondary to chronic alcohol use counseled on cessation 7. Anemia - Secondary to chronic disorder monitoring H&H and transfuse if patient becomes symptomatic or hemoglobin falls below 7 8. DVT prophylaxis ? Enoxaparin Time spent in the patient's overall evaluation,decision-making process, review of diagnostic data, adjustment of management, discussion with other providers, nursing nursing and ancillary staff involved in patient's care documentation, 35 minutes Charges/Coding Visit Charges Inpatient E&M: 53046 Subs Hosp L2
[2023-05-09 07:27] VITALS: BP 95/59; PULSE 86; RESP 16; TEMP 36.8; O2SAT 98
[2023-05-09] MEDS: Potassium Chloride Oral Tablet 20 MEQ PO ×2 (07:45→16:25)
[2023-05-09] MEDS: Folic Acid 1 MG Tablet PO (07:45)
[2023-05-09] MEDS: Thiamine Hydrochloride 100 MG Tablet PO (07:45)
[2023-05-09] MEDS: QUEtiapine 25 MG Tablet PO ×2 (10:16→21:35)
[2023-05-09] MEDS: Enoxaparin 40 MG/0.4 ML Syringe SC (10:16)
[2023-05-09] MEDS: Ensure Plus High Protein 120 ML LIQUID PO ×3 (10:18→16:25)
[2023-05-09 15:00] VITALS: BP 97/58; PULSE 105; RESP 16; TEMP 36.8; O2SAT 99
[2023-05-09] MEDS: MELATONIN 3 MG TABLET PO (21:35)
[2023-05-09] MEDS: traZODone 100 MG Tablet PO (21:35)
[2023-05-09] MEDS: Acetaminophen 325 MG Tablet 650 MG PO (21:35)
[2023-05-09 21:48] VITALS: BP 112/72; PULSE 90; RESP 16; TEMP 36.7; O2SAT 98
[2023-05-10] MEDS: Gabapentin 300 MG Capsule PO ×2 (00:24→08:06)
[2023-05-10] MEDS: LORazepam 1 MG Tablet PO ×3 (00:24→15:40)
[2023-05-10 05:00] VITALS: BP 118/76; PULSE 91; RESP 16; TEMP 36.8; O2SAT 97
[2023-05-10] MEDS: Na Biphos/Potassium Phosphate PACKET 1 PACKET PO ×3 (05:34→21:58)
[2023-05-10] MEDS: hydrOXYzine PAM 25 MG Capsule 50 MG PO ×2 (05:45→14:21)
[2023-05-10] MEDS: Thiamine Hydrochloride 100 MG Tablet PO (08:04)
[2023-05-10] MEDS: Folic Acid 1 MG Tablet PO (08:04)
[2023-05-10] MEDS: Enoxaparin 40 MG/0.4 ML Syringe SC (08:05)
[2023-05-10] MEDS: Acetaminophen 325 MG Tablet 650 MG PO (08:06)
[2023-05-10] MEDS: Potassium Chloride Oral Tablet 20 MEQ PO ×2 (08:08→14:21)
--- NOTE | 2023-05-10 08:25 | PN.HOSP_ITS ---
Reason for Visit Reason for Visit: Diagnoses Alcohol dependence, uncomplicated (05/01/23) Adult failure to thrive (05/01/23) Other specified health status (05/01/23) Subjective Subjective Patient frustrated by being in the hospital still, reports feeling somewhat down but has no acute physical complaints Objective Data Objective Data Vital Signs: Vital Signs Temp Pulse Resp BP Pulse Ox O2 Del Method O2 Flow Rate 98.2 F 91 16 118/76 97 Room Air 2 05/10/23 05:00 05/10/23 05:00 05/10/23 05:00 05/10/23 05:00 05/10/23 05:00 05/10/23 05:00 05/02/23 08:00 Oxygen Flow Rate (L/min) 2 Oxygen Delivery Method Room Air Weight: 92.76 kg Body Mass Index (BMI) 28.5 Intake & Output: Intake and Output for Last 24 Hours 05/08/23 05/09/23 05/10/23 23:59 23:59 23:59 Intake Total 300 / 700 700 / 700 400 / 400 Output Total 1500 / 1500 Balance -1200 / -800 700 / 700 400 / 400 Lab / Micro Data 05/09/23 05:30 05/10/23 09:15 Micro: Microbiology 05/01/23 08:11 Urine, Clean Catch Urine Culture - Final GPC Poss Enterococcus sp 05/01/23 07:55 Nasal Secretion SARS-CoV-2 Antigen (Rapid) - Final Rhythm Strip Rhythm Strip: Sinus Tach Rate: 115 Ectopy: None Physical Exam Narrative General: Alert, no acute distress HEENT: Atraumatic, normocephalic Eyes: Anicteric, normal conjunctiva, extraocular movements grossly intact Neck: Supple Respiratory: Clear to auscultation bilaterally, normal respiratory effort Cardiovascular: Regular rate GI: Soft, nontender, nondistended Extremities: Not significantly pitting Musculoskeletal: Moving all extremities, ambulates with walker Neuro: No overt focal neurological deficits Skin: No rashes appreciated Psych: Frustrated about still being here but overall cooperative Assessment & Plan Assessment/Plan (1) Chronic alcohol dependence, continuous: (2) Unable to care for self: (3) Failure to thrive: QUALIFIERS: Failure to thrive age range: in adult Qualified Code( s): R62.7 - Adult failure to thrive PLAN: Plan Patient is a 63-year-old gentleman with history of chronic alcohol dependence admitted with significant self-neglect. 1. Physical debility ? With significant self-neglect. Patient has been admitted to regular nursing floor requested for PT OT eval. Suggestion was made to patient regarding being transferred to nursing home facility which even he medically refuses. Paperwork for guardianship initiated since the assessment was made that patient could not take care of himself at home and is a danger to himself. Consult placed to case management/child protective services social worker ? 05/07/2023; Case discussed with case management. Guardianship still pending -05/10: Discharge planning ongoing 2. Chronic alcohol dependence ? Placed on phenobarb taper. Patient was also started on Seroquel at bedtime as well as Ativan as needed -05/10: Patient finished phenobarb taper and while out of window for alcohol wi thdrawal so will DC CIWA. Still on seroquel BID 3. Hypokalemia ? Corrected per protocol ? 05/09/2023 potassium 3.4 additional replacement given -05/10: Within normal limits today 4. Hyponatremia ? Secondary to beer potomania monitoring with daily BMPs -05/10: Sodium improved to 137 on 05/09 -05/10: 135 today, overall stable 5. Elevated transaminases ? Secondary to chronic alcohol use counseled on cessation 7. Anemia - Secondary to chronic disorder monitoring H&H and transfuse if patient becomes symptomatic or hemoglobin falls below 7 8. DVT prophylaxis ? Enoxaparin Time spent in the patient's overall evaluation,decision-making process, review of diagnostic data, adjustment of management, discussion with other providers, nursing nursing and ancillary staff involved in patient's care documentation, 30 minutes Charges/Coding Visit Charges Inpatient E&M: 29183 Subs Hosp L1
[2023-05-10 08:29] VITALS: BP 103/50; PULSE 97; RESP 18; TEMP 36.9; O2SAT 97
[2023-05-10 08:36] VITALS: PULSE 90
[2023-05-10 09:59] LABS: Anion Gap 5 (5-15); BUN 9 mg/dL (7-18); BUN/Creat Ratio 12.1 RATIO (10-20); Calcium,Total 8.6 mg/dL (8.5-10.1); Chloride 104 mmol/L (98-107); Creatinine, Serum 0.74 mg/dL (0.70-1.30); EST Glomerular Filtration Rate 113 mL/min (>60); Est Glom Filt Rate - Afr Amer 137 mL/min (>60); Estimated Creatinine Clearance 108.82 ml/min; Glucose 113 mg/dL (74-106); Potassium 3.7 mmol/L (3.5-5.1); Sodium Level 135 mmol/L (136-145)
[2023-05-10] MEDS: QUEtiapine 25 MG Tablet PO ×2 (10:26→21:59)
[2023-05-10 14:31] VITALS: BP 111/61; PULSE 78; RESP 18; TEMP 37.3; O2SAT 95
[2023-05-10 15:01] VITALS: PULSE 80
[2023-05-10] MEDS: Calcium Carbonate 500 MG Tablet PO ×2 (15:44→20:19)
[2023-05-10] MEDS: busPIRone 5 MG Tablet PO ×2 (16:51→22:20)
--- NOTE | 2023-05-10 16:55 | CASEMGMT ---
Social Work Collaboration with [facility] Seo Specialist today on finding a local tin can feeder office willing to accept take on a martin/become a guardian. Have identified potential guardian, and office is checking to see if the office has any conflict with taking this patient on. Plan: Working on guardianship options for this patient and then can work more diligently on SNF placement. -NARDA Perez
[2023-05-10 21:56] VITALS: BP 120/67; PULSE 95; RESP 18; TEMP 36.9; O2SAT 99
[2023-05-10] MEDS: Ensure Plus High Protein 120 ML LIQUID PO (21:58)
[2023-05-11 00:58] VITALS: BP 126/74; PULSE 98; RESP 18; TEMP 36.8; O2SAT 99
[2023-05-11] MEDS: traZODone 100 MG Tablet PO (01:13)
[2023-05-11] MEDS: MELATONIN 3 MG TABLET PO ×2 (01:13→21:25)
[2023-05-11 02:33] VITALS: BP 138/73; PULSE 93; RESP 18; TEMP 36.8; O2SAT 100
[2023-05-11] MEDS: LORazepam 1 MG Tablet PO ×3 (02:33→21:25)
[2023-05-11 06:29] VITALS: BP 104/62; PULSE 92; RESP 20; TEMP 37; O2SAT 97
[2023-05-11] MEDS: busPIRone 5 MG Tablet PO ×3 (06:32→21:24)
[2023-05-11] MEDS: Na Biphos/Potassium Phosphate PACKET 1 PACKET PO ×3 (06:32→21:24)
[2023-05-11 07:44] LABS: Absolute Lymphocyte Count 1.21 X10^3/uL (0.83-4.51); Absolute Neutrophil Count 2.4 X10^3/uL (2.0-7.7); Basophil# 0.08 X10^3/uL; Basophil% 1.8 % (0-1); Eosinophil# 0.07 X10^3/uL; Eosinophils% 1.6 % (0-5); Hematocrit 33.3 % (40-54); Hemoglobin 10.7 g/dL (13.0-16.5); Lymphocyte # 1.21 X10^3/ul (0.83-4.51); Lymphocyte % 27.5 % (19-41); Mean Corp Hgb Conc 32.1 g/dL (32-36); Mean Corpuscular Hgb 35.2 pg (27.0-32.0); Mean Corpuscular Volume 109.5 fL (80-94); Mean Platelet Vol. 9.2 fl (6.2-12.0); Monocyte# 0.64 X10^3/uL; Monocyte% 14.5 % (0-10); NRBC Flagged by Analyzer 0 % (0-5); Neutrophil # 2.38 X10^3/uL (2.7-7.7); Neutrophil % 54.1 % (47-70); Platelet Count 361 K/mm3 (150-450); Red Blood Count 3.04 M/mm3 (4.6-6.2); White Blood Count 4.4 K/mm3 (4.4-11.0)
--- NOTE | 2023-05-11 07:50 | PN.HOSP_ITS ---
Reason for Visit Reason for Visit: Diagnoses Alcohol dependence, uncomplicated (05/01/23) Adult failure to thrive (05/01/23) Other specified health status (05/01/23) Subjective Subjective Patient anxious to go home, said he is fine to drive and would like to leave today. Has no acute complaints Objective Data Objective Data Vital Signs: Vital Signs Temp Pulse Resp BP Pulse Ox O2 Del Method O2 Flow Rate 98.6 F 92 20 H 104/62 97 Room Air 2 05/11/23 06:29 05/11/23 06:29 05/11/23 06:29 05/11/23 06:29 05/11/23 06:29 05/11/23 06:29 05/02/23 08:00 Oxygen Flow Rate (L/min) 2 Oxygen Delivery Method Room Air Weight: 92.76 kg Body Mass Index (BMI) 28.5 Intake & Output: Intake and Output for Last 24 Hours 05/09/23 05/10/23 05/11/23 23:59 23:59 23:59 Intake Total 700 / 700 2400 / 2400 Balance 700 / 700 2400 / 2400 Lab / Micro Data 05/11/23 06:25 05/10/23 09:15 Labs: Laboratory Results - last 24 hr 05/10/23 09:15: Sodium 135 L, Potassium 3.7, Chloride 104, Carbon Dioxide 26.0, Anion Gap 5, BUN 9, Creatinine 0.74, Estim Creat Clear Calc 108.82, Est GFR (MDRD) Af Amer 137, Est GFR (MDRD) Non-Af 113, BUN/Creatinine Ratio 12.1, Glucose 113 H, Calcium 8.6 05/11/23 06:25: WBC 4.4, RBC 3.04 L, Hgb 10.7 L, Hct 33.3 L, MCV 109.5 H, MCH 35.2 H, MCHC 32.1, RDW Std Deviation 57.0 H, RDW Coeff of Valerio 14.0, Plt Count 361, MPV 9.2, Immature Gran % (Auto) 0.500, Neut % (Auto) 54.1, Lymph % (Auto) 27.5, [place] % (Auto) 14.5 H, Eos % (Auto) 1.6, Baso % (Auto) 1.8 H, Absolute Neuts (auto) 2.4, Absolute Lymphs (auto) 1.21, Nucleated RBC % 0 Micro: Microbiology 05/01/23 08:11 Urine, Clean Catch Urine Culture - Final GPC Poss Enterococcus sp 05/01/23 07:55 Nasal Secretion SARS-CoV-2 Antigen (Rapid) - Final Rhythm Strip Rhythm Strip: Sinus Tach Rate: 115 Ectopy: None Physical Exam Narrative General: Alert, no apparent distress HEENT: Atraumatic, normocephalic Eyes: extraocular movements grossly intact Neck: Supple Respiratory: normal respiratory effort Cardiovascular: Lower extremity edema GI: nondistended Extremities: Moving all extremities Neuro: No overt focal neurological deficits Psych: Overall cooperative Assessment & Plan Assessment/Plan (1) Chronic alcohol dependence, continuous: (2) Unable to care for self: (3) Failure to thrive: QUALIFIERS: Failure to thrive age range: in adult Qualified Code(s): R62.7 - Adult failure to thrive PLAN: Plan Patient is a 63-year-old gentleman with history of chronic alcohol dependence admitted with significant self-neglect. 1. Physical debility ? With significant self-neglect. Patient has been admitted to regular nursing floor requested for PT OT eval. Suggestion was made to patient regarding being transferred to long term facility which even he medically refuses. Paperwork for guardianship initiated since the assessment was made that patient could not take care of himself at home and is a danger to himself. Consult placed to case management/vp digital marketing social media and crm ? 05/07/2023; Case discussed with case management. Guardianship still pending -05/10: Discharge planning ongoing -05/11: Awaiting guardianship, continue to use walker 2. Chronic alcohol dependence ? Placed on phenobarb taper. Patient was also started on Seroquel at bedtime as well as Ativan as needed -05/10: Patient finished phenobarb taper and while out of window for alcohol wit hdrawal so will DC CIWA. Still on seroquel BID -05/11: Doing well on Seroquel and Ativan as needed, CIWA discontinued, added BuSpar to help with anxiety and agitation 3. Hypokalemia ? Corrected per protocol ? 05/09/2023 potassium 3.4 additional replacement given -05/10: Within normal limits today 4. Hyponatremia ? Secondary to beer potomania monitoring with daily BMPs -05/10: Sodium improved to 137 on 05/09 -05/10: 135 today, overall stable 5. Elevated transaminases ? Secondary to chronic alcohol use counseled on cessation 7. Anemia - Secondary to chronic disorder monitoring H&H and transfuse if patient becomes symptomatic or hemoglobin falls below 7 8. DVT prophylaxis ? Enoxaparin Time spent in the patient's overall evaluation,decision-making process, review of diagnostic data, adjustment of management, discussion with other providers, nursing nursing and ancillary staff involved in patient's care documentation, 25 minutes Charges/Coding Visit Charges Inpatient E&M: 89488 Subs Hosp L1
[2023-05-11] MEDS: Potassium Chloride Oral Tablet 20 MEQ PO ×2 (08:00→17:32)
[2023-05-11] MEDS: Folic Acid 1 MG Tablet PO (08:12)
[2023-05-11] MEDS: Enoxaparin 40 MG/0.4 ML Syringe SC (08:13)
[2023-05-11] MEDS: Thiamine Hydrochloride 100 MG Tablet PO (08:13)
[2023-05-11] MEDS: QUEtiapine 25 MG Tablet PO ×2 (08:14→21:24)
[2023-05-11 08:17] LABS: Anion Gap 5 (5-15); BUN 7 mg/dL (7-18); BUN/Creat Ratio 10.6 RATIO (10-20); Calcium,Total 8.5 mg/dL (8.5-10.1); Chloride 106 mmol/L (98-107); Creatinine, Serum 0.66 mg/dL (0.70-1.30); EST Glomerular Filtration Rate 130 mL/min (>60); Est Glom Filt Rate - Afr Amer 157 mL/min (>60); Estimated Creatinine Clearance 122.01 ml/min; Glucose 107 mg/dL (74-106); Potassium 3.7 mmol/L (3.5-5.1); Sodium Level 137 mmol/L (136-145)
[2023-05-11 08:18] VITALS: BP 113/69; PULSE 88; RESP 16; TEMP 36.8; O2SAT 100
[2023-05-11] MEDS: Gabapentin 300 MG Capsule PO ×2 (09:14→17:32)
[2023-05-11 17:42] VITALS: RESP 16
--- NOTE | 2023-05-11 19:06 | CASEMGMT ---
Social Work This medical underwriter collaborated with [facility] Hand Brush Filler, and it was found that [facility] firm as availability to consider taking on a martin for guardianship. This medical underwriter provided summary update to Chief Controller Tower Ino Thakur regarding this patient. Waiting to hear back from Ino to confirm what additional information will be needed to proceed with filing for guardianship. Plan: Working on establishing guardianship of this patient, which will assist in being able to secure a safe discharge plan for this patient. -NARDA Perez
[2023-05-11 20:00] VITALS: BP 140/81; PULSE 96; RESP 16; TEMP 36.6; O2SAT 99
[2023-05-11] MEDS: Ensure Plus High Protein 120 ML LIQUID PO (21:24)
[2023-05-11] MEDS: hydrOXYzine PAM 25 MG Capsule 50 MG PO (21:25)
[2023-05-11 23:04] VITALS: BMI 28.5
[2023-05-12] MEDS: traZODone 100 MG Tablet PO ×2 (00:17→20:06)
[2023-05-12 05:00] VITALS: BP 126/73; PULSE 92; RESP 16; TEMP 37.1; O2SAT 97
[2023-05-12] MEDS: Na Biphos/Potassium Phosphate PACKET 1 PACKET PO ×3 (06:05→20:06)
[2023-05-12] MEDS: LORazepam 1 MG Tablet PO ×2 (06:05→14:28)
[2023-05-12] MEDS: busPIRone 5 MG Tablet PO ×3 (06:05→20:06)
[2023-05-12 08:36] VITALS: BP 134/81; PULSE 97; RESP 18; TEMP 37.1; O2SAT 100
[2023-05-12] MEDS: Thiamine Hydrochloride 100 MG Tablet PO (08:38)
[2023-05-12] MEDS: Folic Acid 1 MG Tablet PO (08:38)
[2023-05-12] MEDS: Potassium Chloride Oral Tablet 20 MEQ PO ×2 (08:38→18:02)
--- NOTE | 2023-05-12 10:14 | PCM.PN.HOSP ---
Reason for Visit Reason for Visit: Diagnoses Alcohol dependence, uncomplicated (05/01/23) Adult failure to thrive (05/01/23) Other specified health status (05/01/23) Subjective Subjective Patient initially resting comfortably bed and up ambulating halls Objective Data Objective Data Vital Signs: Vital Signs Temp Pulse Resp BP Pulse Ox O2 Del Method O2 Flow Rate 98.8 F 97 18 134/81 H 100 Room Air 2 05/12/23 08:36 05/12/23 08:36 05/12/23 08:36 05/12/23 08:36 05/12/23 08:36 05/12/23 08:36 05/02/23 08:00 Oxygen Flow Rate (L/min) 2 Oxygen Delivery Method Room Air Weight: 92.76 kg Body Mass Index (BMI) 28.5 Intake & Output: Intake and Output for Last 24 Hours 05/10/23 05/11/23 05/12/23 23:59 23:59 23:59 Intake Total 2400 / 2400 Output Total 3 / 3 Balance 2400 / 2400 -3 / -3 Lab / Micro Data 05/11/23 06:25 05/11/23 06:25 Micro: Microbiology 05/01/23 08:11 Urine, Clean Catch Urine Culture - Final GPC Poss Enterococcus sp 05/01/23 07:55 Nasal Secretion SARS-CoV-2 Antigen (Rapid) - Final Rhythm Strip Rhythm Strip: Sinus Tach Rate: 115 Ectopy: None Assessment & Plan Assessment/Plan (1) Chronic alcohol dependence, continuous: (2) Unable to care for self: (3) Failure to thrive: QUALIFIERS: Failure to thrive age range: in adult Qualified Code(s): R62.7 - Adult failure to thrive PLAN: Plan Patient is a 63-year-old gentleman with history of chronic alcohol dependence admitted with significant self-neglect. 1. Physical debility ? With significant self-neglect. Patient has been admitted to regular nursing floor requested for PT OT eval. Suggestion was made to patient regarding being transferred to snf facility which even he medically refuses. Paperwork for guardianship initiated since the assessment was made that patient could not take care of himself at home and is a danger to himself. Consult placed to case management/social work administrator ? 05/07/2023; Case discussed with case management. Guardianship still pending -05/10: Discharge planning ongoing -05/11: Awaiting guardianship, continue to use walker -05/12: Awaiting guardianship to pursue placement 2. Chronic alcohol dependence ? Placed on phenobarb taper. Patient was also started on Seroquel at bedtime as well as Ativan as needed -05/10: Patient finished phenobarb taper and while out of window for alcohol withdrawal so will DC CIWA. Still on seroquel BID -05/11: Doing well on Seroquel and Ativan as needed, CIWA discontinued, added BuSpar to help with anxiety and agitation -05/12: Continue present management 3. Hypokalemia ? Corrected per protocol ? 05/09/2023 potassium 3.4 additional replacement given -05/10: Within normal limits today 4. Hyponatremia ? Secondary to beer potomania monitoring with daily BMPs -05/10: Sodium improved to 137 on 05/09 -05/10: 135 today, overall stable 5. Elevated transaminases ? Secondary to chronic alcohol use counseled on cessation 7. Anemia - Secondary to chronic disorder monitoring H&H and transfuse if patient becomes symptomatic or hemoglobin falls below 7 8. DVT prophylaxis ? Enoxaparin
[2023-05-12] MEDS: Enoxaparin 40 MG/0.4 ML Syringe SC (11:00)
[2023-05-12] MEDS: Ensure Plus High Protein 120 ML LIQUID PO ×4 (11:00→20:07)
[2023-05-12] MEDS: QUEtiapine 25 MG Tablet PO ×2 (11:00→20:06)
[2023-05-12] MEDS: Gabapentin 300 MG Capsule PO ×2 (11:04→20:06)
[2023-05-12] MEDS: Calcium Carbonate 500 MG Tablet PO (13:26)
[2023-05-12 14:26] VITALS: BP 143/90; PULSE 99; RESP 18; TEMP 36.6; O2SAT 100
[2023-05-12] MEDS: hydrOXYzine PAM 25 MG Capsule 50 MG PO (18:02)
[2023-05-12] MEDS: MELATONIN 3 MG TABLET PO (20:06)
[2023-05-12 20:26] VITALS: BP 146/78; PULSE 98; RESP 18; TEMP 36.6; O2SAT 96
[2023-05-13] MEDS: LORazepam 1 MG Tablet PO ×3 (01:22→17:10)
[2023-05-13] MEDS: hydrOXYzine PAM 25 MG Capsule 50 MG PO ×4 (01:22→22:50)
[2023-05-13 01:33] VITALS: BP 120/75; PULSE 52; RESP 16; TEMP 36.6; O2SAT 94
[2023-05-13] MEDS: Na Biphos/Potassium Phosphate PACKET 1 PACKET PO ×3 (04:30→20:37)
[2023-05-13] MEDS: busPIRone 5 MG Tablet PO ×3 (04:30→20:36)
[2023-05-13 08:17] VITALS: BP 129/64; PULSE 83; RESP 18; TEMP 36.7; O2SAT 98
[2023-05-13] MEDS: Thiamine Hydrochloride 100 MG Tablet PO (08:19)
[2023-05-13] MEDS: Potassium Chloride Oral Tablet 20 MEQ PO ×2 (08:19→17:10)
[2023-05-13] MEDS: Folic Acid 1 MG Tablet PO (08:19)
[2023-05-13] MEDS: Ensure Plus High Protein 120 ML LIQUID PO ×4 (08:22→20:37)
--- NOTE | 2023-05-13 08:42 | PCM.PN.HOSP ---
Reason for Visit Reason for Visit: Diagnoses Alcohol dependence, uncomplicated (05/01/23) Adult failure to thrive (05/01/23) Other specified health status (05/01/23) Subjective Subjective Patient still asking about going home, visits mom and other room when he can Objective Data Objective Data Vital Signs: Vital Signs Temp Pulse Resp BP Pulse Ox O2 Del Method O2 Flow Rate 98.1 F 83 18 129/64 H 98 Room Air 2 05/13/23 08:17 05/13/23 08:17 05/13/23 08:17 05/13/23 08:17 05/13/23 08:17 05/13/23 08:17 05/02/23 08:00 Oxygen Flow Rate (L/min) 2 Oxygen Delivery Method Room Air Weight: 92.76 kg Body Mass Index (BMI) 28.5 Intake & Output: Intake and Output for Last 24 Hours 05/11/23 05/12/23 05/13/23 23:59 23:59 23:59 Intake Total 2960 / 2960 Output Total Balance 2957 / 2957 Lab / Micro Data 05/11/23 06:25 05/11/23 06:25 Micro: Microbiology 05/01/23 08:11 Urine, Clean Catch Urine Culture - Final GPC Poss Enterococcus sp 05/01/23 07:55 Nasal Secretion SARS-CoV-2 Antigen (Rapid) - Final Rhythm Strip Rhythm Strip: Sinus Tach Rate: 115 Ectopy: None Physical Exam Narrative General: Alert, no apparent distress HEENT: Atraumatic, normocephalic Eyes: extraocular movements grossly intact Neck: Supple Respiratory: normal respiratory effort Cardiovascular: Has some chronic lower extremity edema GI: nondistended Extremities: Moving all extremities Neuro: No overt focal neurological deficits Psych: Perseverates on going home Assessment & Plan Assessment/Plan (1) Chronic alcohol dependence, continuous: (2) Unable to care for self: (3) Failure to thrive: QUALIFIERS: Failure to thrive age range: in adult Qualified Code(s): R62.7 - Adult failure to thrive PLAN: Plan Patient is a 63-year-old gentleman with history of chronic alcohol dependence admitted with significant self-neglect. 1. Physical debility ? With significant self-neglect. Patient has been admitted to regular nursing floor requested for PT OT eval. Suggestion was made to patient regarding being transferred to senior living facility which even he medically refuses. Paperwork for guardianship initiated since the assessment was made that patient could not take care of himself at home and is a danger to himself. Consult placed to case management/social media sr strategy manager ? 05/07/2023; Case discussed with case management. Guardianship still pending -05/10: Discharge planning ongoing -05/11: Awaiting guardianship, continue to use walker -05/12: Awaiting guardianship to pursue placement -05/13: Ambulates well with walker with mom another room still awaiting guardianship determination 2. Chronic alcohol dependence ? Placed on phenobarb taper. Patient was also started on Seroquel at bedtime as well as Ativan as needed -05/10: Patient finished phenobarb taper and while out of window for alcohol withdrawal so will DC CIWA. Still on seroquel BID -05/11: Doing well on Seroquel and Ativan as needed, CIWA discontinued, added BuSpar to help with anxiety and agitation -05/12: Continue present management 3. Hypokalemia ? Corrected per protocol ? 05/09/2023 potassium 3.4 additional replacement given -05/10: Within normal limits today 4. Hyponatremia ? Secondary to beer potomania monitoring with daily BMPs -05/10: Sodium improved to 137 on 05/09 -05/10: 135 today, overall stable 5. Elevated transaminases ? Secondary to chronic alcohol use counseled on cessation 7. Anemia - Secondary to chronic disorder monitoring H&H and transfuse if patient becomes symptomatic or hemoglobin falls below 7 8. DVT prophylaxis ? Enoxaparin Charges/Coding Visit Charges Inpatient E&M: 55115 Subs Hosp L1
[2023-05-13] MEDS: QUEtiapine 25 MG Tablet PO ×2 (09:21→20:37)
[2023-05-13] MEDS: Enoxaparin 40 MG/0.4 ML Syringe SC (09:21)
[2023-05-13] MEDS: Gabapentin 300 MG Capsule PO (13:11)
[2023-05-13 17:08] VITALS: BP 124/92; PULSE 89; RESP 18; TEMP 37.2; O2SAT 99
--- NOTE | 2023-05-13 18:34 | CASEMGMT ---
Social Work - GUARDIANSHIP STATUS Recived notice from Director Digital Advertising Ino Thakur, a letter of guardianship, giving guardianship over to Ino Thakur on an emergency basis. This will last until 05.17.23, at which time there will be a court hearing determining whether to extend the guardianship for another 30 days. Guardianship papers placed on chart. Updated grievance and appeals specialist and Dr. Sam. Updated demographic data with Director Digital Advertising Ofe's contact information. Office is [phone] and cell is [phone]. Plan: Will coordinate with guardian on next steps in aftercare planning. -NARDA Perez
[2023-05-13 20:25] VITALS: BP 147/92; PULSE 99; RESP 18; TEMP 37; O2SAT 100
[2023-05-13 22:46] VITALS: BP 141/88; PULSE 102; RESP 18; TEMP 37.3; O2SAT 100
[2023-05-13] MEDS: traZODone 100 MG Tablet PO (22:50)
[2023-05-13] MEDS: MELATONIN 3 MG TABLET PO (22:50)
[2023-05-14] MEDS: Calcium Carbonate 500 MG Tablet PO (00:06)
[2023-05-14] MEDS: Gabapentin 300 MG Capsule PO ×2 (00:21→14:04)
[2023-05-14] MEDS: Acetaminophen 325 MG Tablet 650 MG PO (00:55)
[2023-05-14] MEDS: LORazepam 1 MG Tablet PO ×3 (01:14→16:59)
[2023-05-14 04:28] VITALS: BP 119/75; PULSE 84; RESP 18; TEMP 36.6; O2SAT 100
[2023-05-14] MEDS: hydrOXYzine PAM 25 MG Capsule 50 MG PO ×4 (04:35→21:51)
[2023-05-14] MEDS: busPIRone 5 MG Tablet PO ×3 (04:35→21:51)
[2023-05-14] MEDS: Na Biphos/Potassium Phosphate PACKET 1 PACKET PO ×3 (04:36→21:49)
--- NOTE | 2023-05-14 07:34 | PCM.PN.HOSP ---
Reason for Visit Reason for Visit: Diagnoses Alcohol dependence, uncomplicated (05/01/23) Adult failure to thrive (05/01/23) Other specified health status (05/01/23) Subjective Subjective Guardianship papers have been filed and patient can now pursue SNF Objective Data Objective Data Vital Signs: Vital Signs Temp Pulse Resp BP Pulse Ox O2 Del Method O2 Flow Rate 97.9 F 84 18 119/75 100 Room Air 2 05/14/23 04:28 05/14/23 04:28 05/14/23 04:28 05/14/23 04:28 05/14/23 04:28 05/14/23 04:28 05/02/23 08:00 Oxygen Flow Rate (L/min) 2 Oxygen Delivery Method Room Air Weight: 92.76 kg Body Mass Index (BMI) 28.5 Intake & Output: Intake and Output for Last 24 Hours 05/12/23 05/13/23 05/14/23 23:59 23:59 23:59 Intake Total 2960 / 2960 1200 / 1200 Output Total Balance 2957 / 2957 1200 / 1200 Lab / Micro Data 05/11/23 06:25 05/11/23 06:25 Micro: Microbiology 05/01/23 08:11 Urine, Clean Catch Urine Culture - Final GPC Poss Enterococcus sp 05/01/23 07:55 Nasal Secretion SARS-CoV-2 Antigen (Rapid) - Final Rhythm Strip Rhythm Strip: Sinus Tach Rate: 115 Ectopy: None Assessment & Plan Assessment/Plan (1) Chronic alcohol dependence, continuous: (2) Unable to care for self: (3) Failure to thrive: QUALIFIERS: Failure to thrive age range: in adult Qualified Code(s): R62.7 - Adult failure to thrive PLAN: Plan Patient is a 63-year-old gentleman with history of chronic alcohol dependence admitted with significant self-neglect. 1. Physical debility ? With significant self-neglect. Patient has been admitted to regular nursing floor requested for PT OT eval. Suggestion was made to patient regarding being transferred to senior living facility which even he medically refuses. Paperwork for guardianship initiated since the assessment was made that patient could not take care of himself at home and is a danger to himself. Consult placed to case management/child welfare social worker ? 05/07/2023; Case discussed with case management. Guardianship still pending -05/10: Discharge planning ongoing -05/11: Awaiting guardianship, continue to use walker -05/12: Awaiting guardianship to pursue placement -05/13: Ambulates well with walker with mom another room still awaiting guardianship determination -05/14: Patient has been appointed a guardian but will last until 05/17 at which time there will be a court hearing determining whether to extend it for another 30 days, we will begin discharge planning 2. Chronic alcohol dependence ? Placed on phenobarb taper. Patient was also started on Seroquel at bedtime as well as Ativan as needed -05/10: Patient finished phenobarb taper and while out of window for alcohol withdrawal so will DC CIWA. Still on seroquel BID -05/11: Doing well on Seroquel and Ativan as needed, CIWA discontinued, added BuSpar to help with anxiety and agitation -05/12: Continue present management 3. Hypokalemia ? Corrected per protocol ? 05/09/2023 potassium 3.4 additional replacement given -05/10: Within normal limits today -05/14: Recheck in a.m. 4. Hyponatremia ? Secondary to beer potomania monitoring with daily BMPs -05/10: Sodium improved to 137 on 05/09 -05/10: 135 today, overall stable -05/14: Recheck in a.m. 5. Elevated transaminases ? Secondary to chronic alcohol use counseled on cessation 7. Anemia - Secondary to chronic disorder monitoring H&H and transfuse if patient becomes symptomatic or hemoglobin falls below 7 8. DVT prophylaxis ? Enoxaparin Charges/Coding Visit Charges Inpatient E&M: 54529 Subs Hosp L1
[2023-05-14 08:15] VITALS: BP 110/69; PULSE 85; RESP 18; TEMP 36.8; O2SAT 100
[2023-05-14] MEDS: Enoxaparin 40 MG/0.4 ML Syringe SC (08:24)
[2023-05-14] MEDS: Potassium Chloride Oral Tablet 20 MEQ PO ×2 (08:24→17:02)
[2023-05-14] MEDS: Folic Acid 1 MG Tablet PO (08:24)
[2023-05-14] MEDS: Thiamine Hydrochloride 100 MG Tablet PO (08:24)
[2023-05-14] MEDS: QUEtiapine 25 MG Tablet PO ×2 (08:27→21:52)
--- NOTE | 2023-05-14 08:41 | WOUNDNOTE ---
wound photo: left foot
--- NOTE | 2023-05-14 08:42 | WOUNDNOTE ---
wound photo: right foot
--- NOTE | 2023-05-14 08:42 | WOUNDNOTE ---
Was consulted by nursing for wounds to bilateral feet. removed socks to assess. patient has some very small scattered scabbed over abrasions to various toes. there is no redness noted. moderate edema noted to bilateral lower legs and feet. patient refusing any compression at this time. no drainage noted and no sign of infection noted. no need for wound care at this time. will monitor as needed. encouraged patient to keep legs elevated as much as possible.
--- NOTE | 2023-05-14 09:40 | CASEMGMT ---
Social Work - GUARDIANSHIP UPDATE Spoke with Aretha Guerrier, Court Specialist Field Engineer [facility] Aretha confirms patient was appointed an emergency guardian until 05.17.23, when there will be a hearing to determine extension to temporary guardianship. Aretha plans to serve patient with court documents and will ask for [facility] renal social worker when arrives to unit. For continuity, did update Aretha to patient's status. Handoff to CELSA Leon on [facility]. Plan: Social work actively following and will work with assigned home planning consultant salesperson on placement of this patient. -PHOEBE Perez
--- NOTE | 2023-05-14 12:30 | CASEMGMT ---
Social Work Aretha Guerrier, Court hydraulic tester here and met with pt to serve guardianship papers and explain procedure. Pt becoming very agitated during conversation as pt states he does not need a guardian. This SW explained to pt that home situation was found by EMS to be in deplorable conditions and pt was not caring for himself or mother and is not able to return there at this time. Pt stating he will go to the [place] in [place] where his mom live and own 40 acres. 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 SW has spoke with pt's sister who confirms that Pt did was raised in a home on 38 acres in [place] but that has been sold a long time ago. Pt's father owned a Welding business, but it is also dissolved and pt did little work there. SW provided reassurance to pt and attempted to explain that SNF placement would be pursued for pt and his mother for their safety and well being. Phone call placed to Pt's emergency Guardian Ino Thakur. Discharge planning options discussed. Ino is agreeable that SNF placement is needed. Discussed pt and mother going to same SNF or to separate SNF's and it was agreed that pt would benefit from being in the same facility that his mother is at. [facility] is first choice of facilities. If they are unable to accept, [facility] with no preference other than pt stay local. SNF referrals to be made. CELSA Melton
--- NOTE | 2023-05-14 13:30 | CASEMGMT ---
Social Work [facility] has no available beds. Referrals to be sent to [facility] and [facility]. CELSA Melton
--- NOTE | 2023-05-14 13:47 | CASEMGMT ---
Discharge Planning Referral sent to [facility], [facility] and [facility] ([facility]) via [facility]. Dunia Cheng, Discharge Planning Asst.
--- NOTE | 2023-05-14 16:26 | CASEMGMT ---
Discharge Planning Patient has been accepted by [facility] and [facility]. [facility] cannot admit until later next d/t wanting more information on finances. Msg left for [facility] to check on status of referral. SW updated. Dunia Cheng, Discharge Planning Asst.
--- NOTE | 2023-05-14 16:58 | CASEMGMT ---
Discharge Planning [facility] updated that they are foc. Asked if ok to send patient with [id number]. Awaiting response. Dunia Cheng, Discharge Planning Asst.
--- NOTE | 2023-05-14 17:00 | CASEMGMT ---
Social Work Phone call to Ino Thakur, Emergency Guardian. Updated that [facility] has no beds, [facility] has not responded, [facility] can accept both pt and his mother and [facility] states they can accept but it will take time. Ino requesting placement at [facility]. DC hospital aides and assistants teacher updated and will request precert be started. KG met with pt. Pt did not seem to recognize this worker from earlier in the day. Pt preoccupied with phone not working and requesting help. SW attempted to assist pt. Pt with not comments or voicing no thoughts on event of earlier today regarding guardianship. Plan: [facility], pending precert. Pt will be here through the weekend. CELSA Melton
[2023-05-14 17:03] VITALS: BP 113/78; PULSE 103; RESP 18; TEMP 37.1; O2SAT 96
[2023-05-14 21:45] VITALS: BP 147/70; PULSE 101; RESP 20; TEMP 36.8; O2SAT 97
[2023-05-14] MEDS: traZODone 100 MG Tablet PO (21:51)
[2023-05-14] MEDS: MELATONIN 3 MG TABLET PO (21:52)
[2023-05-14] MEDS: Ensure Plus High Protein 120 ML LIQUID PO (21:53)
[2023-05-15 01:01] VITALS: BP 108/81; PULSE 97; RESP 20; TEMP 36.7; O2SAT 96
[2023-05-15] MEDS: hydrOXYzine PAM 25 MG Capsule 50 MG PO ×4 (02:54→17:34)
[2023-05-15 04:28] VITALS: BP 126/69; PULSE 90; RESP 18; TEMP 36.5; O2SAT 100
[2023-05-15] MEDS: busPIRone 5 MG Tablet PO ×3 (04:30→20:51)
[2023-05-15] MEDS: Na Biphos/Potassium Phosphate PACKET 1 PACKET PO ×3 (04:30→20:50)
[2023-05-15 08:57] LABS: Absolute Lymphocyte Count 1.24 X10^3/uL (0.83-4.51); Absolute Neutrophil Count 3.5 X10^3/uL (2.0-7.7); Basophil# 0.07 X10^3/uL; Basophil% 1.3 % (0-1); Eosinophil# 0.13 X10^3/uL; Eosinophils% 2.4 % (0-5); Hematocrit 34.7 % (40-54); Hemoglobin 11.2 g/dL (13.0-16.5); Lymphocyte # 1.24 X10^3/ul (0.83-4.51); Lymphocyte % 22.5 % (19-41); Mean Corp Hgb Conc 32.3 g/dL (32-36); Mean Corpuscular Hgb 35.2 pg (27.0-32.0); Mean Corpuscular Volume 109.1 fL (80-94); Mean Platelet Vol. 9.1 fl (6.2-12.0); Monocyte# 0.54 X10^3/uL; Monocyte% 9.8 % (0-10); NRBC Flagged by Analyzer 0 % (0-5); Neutrophil # 3.52 X10^3/uL (2.7-7.7); Neutrophil % 63.8 % (47-70); Platelet Count 354 K/mm3 (150-450); RBC Distribution Width CV 13.9 % (11.6-14.6); RBC Distribution Width SD 56.7 fl (35.1-43.9); Red Blood Count 3.18 M/mm3 (4.6-6.2); White Blood Count 5.5 K/mm3 (4.4-11.0)
[2023-05-15 08:59] VITALS: BP 149/64; PULSE 93; RESP 18; TEMP 36.7; O2SAT 100
[2023-05-15] MEDS: Enoxaparin 40 MG/0.4 ML Syringe SC (09:03)
[2023-05-15] MEDS: Potassium Chloride Oral Tablet 20 MEQ PO ×2 (09:03→17:34)
[2023-05-15] MEDS: Thiamine Hydrochloride 100 MG Tablet PO (09:04)
[2023-05-15] MEDS: QUEtiapine 25 MG Tablet PO ×2 (09:04→20:51)
[2023-05-15] MEDS: Folic Acid 1 MG Tablet PO (09:04)
[2023-05-15] MEDS: LORazepam 1 MG Tablet PO ×2 (09:07→17:33)
[2023-05-15] MEDS: Acetaminophen 325 MG Tablet 650 MG PO ×2 (09:08→17:33)
--- NOTE | 2023-05-15 09:27 | PN.HOSP_ITS ---
Reason for Visit Reason for Visit: Diagnoses Alcohol dependence, uncomplicated (05/01/23) Adult failure to thrive (05/01/23) Other specified health status (05/01/23) Subjective Subjective Patient demanding his socks and wants to go visit his mother [place] the [place] Objective Data Objective Data Vital Signs: Vital Signs Temp Pulse Resp BP Pulse Ox O2 Del Method O2 Flow Rate 98.0 F 93 18 149/64 H 100 Room Air 2 05/15/23 08:59 05/15/23 08:59 05/15/23 08:59 05/15/23 08:59 05/15/23 08:59 05/15/23 08:59 05/02/23 08:00 Oxygen Flow Rate (L/min) 2 Oxygen Delivery Method Room Air Weight: 92.76 kg Body Mass Index (BMI) 28.5 Intake & Output: Intake and Output for Last 24 Hours 05/13/23 05/14/23 05/15/23 23:59 23:59 23:59 Intake Total 1200 / 1200 600 / 1000 800 / 800 Balance 1200 / 1200 600 / 1000 800 / 800 Lab / Micro Data 05/15/23 07:36 05/11/23 06:25 Labs: Laboratory Results - last 24 hr 05/15/23 07:36: WBC 5.5, RBC 3.18 L, Hgb 11.2 L, Hct 34.7 L, MCV 109.1 H, MCH 35.2 H, MCHC 32.3, RDW Std Deviation 56.7 H, RDW Coeff of Valerio 13.9, Plt Count 354, MPV 9.1, Immature Gran % (Auto) 0.200, Neut % (Auto) 63.8, Lymph % (Auto) 22.5, Davis % (Auto) 9.8, Eos % (Auto) 2.4, Baso % (Auto) 1.3 H, Absolute Neuts (auto) 3.5, Absolute Lymphs (auto) 1.24, Nucleated RBC % 0 Micro: Microbiology 05/01/23 08:11 Urine, Clean Catch Urine Culture - Final GPC Poss Enterococcus sp 05/01/23 07:55 Nasal Secretion SARS-CoV-2 Antigen (Rapid) - Final Rhythm Strip Rhythm Strip: Sinus Tach Rate: 115 Ectopy: None Physical Exam Narrative General: Alert HEENT: Atraumatic, normocephalic Neck: Supple Respiratory: normal respiratory effort Extremities: Moving all extremities Psych: irritable Assessment & Plan Assessment/Plan (1) Chronic alcohol dependence, continuous: (2) Unable to care for self: (3) Failure to thrive: QUALIFIERS: Failure to thrive age range: in adult Qualified Code(s): R62.7 - Adult failure to thrive PLAN: Plan Patient is a 63-year-old gentleman with history of chronic alcohol dependence admitted with significant self-neglect. 1. Physical debility ? With significant self-neglect. Patient has been admitted to regular nursing floor requested for PT OT eval. Suggestion was made to patient regarding being transferred to long-term facility which even he medically refuses. Paperwork for guardianship initiated since the assessment was made that patient could not take care of himself at home and is a danger to himself. Consult placed to case management/social media senior associate ? 05/07/2023; Case discussed with case management. Guardianship still pending -05/10: Discharge planning ongoing -05/11: Awaiting guardianship, continue to use walker -05/12: Awaiting guardianship to pursue placement -05/13: Ambulates well with walker with mom another room still awaiting guardianship determination -05/14: Patient has been appointed a guardian but will last until 05/17 at which time there will be a court hearing determining whether to extend it for another 30 days, we will begin discharge planning -05/15: Placement underway 2. Chronic alcohol dependence ? Placed on phenobarb taper. Patient was also started on Seroquel at bedtime as well as Ativan as needed -05/10: Patient finished phenobarb taper and while out of window for alcohol withdrawal so will DC CIWA. Still on seroquel BID -05/11: Doing well on Seroquel and Ativan as needed, CIWA discontinued, added BuSpar to help with anxiety and agitation -05/12: Continue present management 3. Hypokalemia ? Corrected per protocol ? 05/09/2023 potassium 3.4 additional replacement given -05/10: Within normal limits today -05/14: Recheck in a.m. -05/15: A.m. labs pending, follow-up 4. Hyponatremia ? Secondary to beer potomania monitoring with daily BMPs -05/10: Sodium improved to 137 on 05/09 -05/10: 135 today, overall stable -05/14: Recheck in a.m. -05/15: A.m. labs pending, will follow up 5. Elevated transaminases ? Secondary to chronic alcohol use counseled on cessation 7. Anemia - Secondary to chronic disorder monitoring H&H and transfuse if patient becomes symptomatic or hemoglobin falls below 7 8. DVT prophylaxis ? Enoxaparin Charges/Coding Visit Charges Inpatient E&M: 07814 Subs Hosp L1
[2023-05-15 09:40] LABS: Anion Gap 6 (5-15); BUN 9 mg/dL (7-18); BUN/Creat Ratio 14.8 RATIO (10-20); Calcium,Total 8.6 mg/dL (8.5-10.1); Chloride 108 mmol/L (98-107); Creatinine, Serum 0.61 mg/dL (0.70-1.30); EST Glomerular Filtration Rate 142 mL/min (>60); Est Glom Filt Rate - Afr Amer 172 mL/min (>60); Estimated Creatinine Clearance 132.02 ml/min; Glucose 96 mg/dL (74-106); Potassium 4.1 mmol/L (3.5-5.1); Sodium Level 138 mmol/L (136-145)
--- NOTE | 2023-05-15 13:42 | CASEMGMT ---
Social Work SW checked [employer] several times, [facility] has not responded in regard to whether or not we can complete the hospital exemption or the PAS/RR. SHER Valdez
[2023-05-15] MEDS: Gabapentin 300 MG Capsule PO (14:56)
[2023-05-15 20:34] VITALS: BP 125/66; PULSE 87; RESP 18; TEMP 36.7; O2SAT 100
[2023-05-15] MEDS: Ensure Plus High Protein 120 ML LIQUID PO (20:49)
[2023-05-15] MEDS: traZODone 100 MG Tablet PO (20:51)
[2023-05-15] MEDS: MELATONIN 3 MG TABLET PO (20:51)
[2023-05-16 02:22] VITALS: BP 149/69; PULSE 94; RESP 20; TEMP 36.7; O2SAT 97
[2023-05-16] MEDS: LORazepam 1 MG Tablet PO ×2 (04:38→12:31)
[2023-05-16] MEDS: busPIRone 5 MG Tablet PO ×3 (04:38→20:03)
[2023-05-16] MEDS: Na Biphos/Potassium Phosphate PACKET 1 PACKET PO ×3 (04:48→19:59)
[2023-05-16 04:51] VITALS: BP 117/68; PULSE 96; RESP 20; TEMP 37.2; O2SAT 98
--- NOTE | 2023-05-16 07:29 | PN.HOSP_ITS ---
Reason for Visit Reason for Visit: Diagnoses Alcohol dependence, uncomplicated (05/01/23) Adult failure to thrive (05/01/23) Other specified health status (05/01/23) Subjective Subjective Sitting up in chair with no acute distress Objective Data Objective Data Vital Signs: Vital Signs Temp Pulse Resp BP Pulse Ox O2 Del Method O2 Flow Rate 99.0 F 96 20 H 117/68 98 Room Air 2 05/16/23 04:51 05/16/23 04:51 05/16/23 04:51 05/16/23 04:51 05/16/23 04:51 05/16/23 04:51 05/02/23 08:00 Oxygen Flow Rate (L/min) 2 Oxygen Delivery Method Room Air Weight: 92.76 kg Body Mass Index (BMI) 28.5 Intake & Output: Intake and Output for Last 24 Hours 05/14/23 05/15/23 05/16/23 23:59 23:59 23:59 Intake Total 600 / 1000 800 / 800 Balance 600 / 1000 800 / 800 Lab / Micro Data 05/15/23 07:36 05/15/23 07:36 Labs: Laboratory Results - last 24 hr 05/15/23 07:36: WBC 5.5, RBC 3.18 L, Hgb 11.2 L, Hct 34.7 L, MCV 109.1 H, MCH 35.2 H, MCHC 32.3, RDW Std Deviation 56.7 H, RDW Coeff of Valerio 13.9, Plt Count 354, MPV 9.1, Immature Gran % (Auto) 0.200, Neut % (Auto) 63.8, Lymph % (Auto) 22.5, [place] % (Auto) 9.8, Eos % (Auto) 2.4, Baso % (Auto) 1.3 H, Absolute Neuts (auto) 3.5, Absolute Lymphs (auto) 1.24, Nucleated RBC % 0, Sodium 138, Potassium 4.1, Chloride 108 H, Carbon Dioxide 24.0, Anion Gap 6, BUN 9, Creatinine 0.61 L, Estim Creat Clear Calc 132.02, Est GFR (MDRD) Af Amer 172, Est GFR (MDRD) Non-Af 142, BUN/Creatinine Ratio 14.8, Glucose 96, Calcium 8.6 Micro: Microbiology 05/01/23 08:11 Urine, Clean Catch Urine Culture - Final GPC Poss Enterococcus sp 05/01/23 07:55 Nasal Secretion SARS-CoV-2 Antigen (Rapid) - Final Rhythm Strip Rhythm Strip: Sinus Tach Rate: 115 Ectopy: None Assessment & Plan Assessment/Plan (1) Chronic alcohol dependence, continuous: (2) Unable to care for self: (3) Failure to thrive: QUALIFIERS: Failure to thrive age range: in adult Qualified Code(s): R62.7 - Adult failure to thrive PLAN: Plan Patient is a 63-year-old gentleman with history of chronic alcohol dependence admitted with significant self-neglect. 1. Physical debility ? With significant self-neglect. Patient has been admitted to regular nursing floor requested for PT OT eval. Suggestion was made to patient regarding being transferred to custodial facility which even he medically refuses. Paperwork for guardianship initiated since the assessment was made that patient could not take care of himself at home and is a danger to himself. Consult placed to case management/psychiatric social worker ? 05/07/2023; Case discussed with case management. Guardianship still pending -05/10: Discharge planning ongoing -05/11: Awaiting guardianship, continue to use walker -05/12: Awaiting guardianship to pursue placement -05/13: Ambulates well with walker with mom another room still awaiting guardianship determination -05/14: Patient has been appointed a guardian but will last until 05/17 at which time there will be a court hearing determining whether to extend it for another 30 days, we will begin discharge planning -05/15: Placement underway -05/16: Patient has a guardian, awaiting to hear if patient needs PAS/RR or is exempt to that this can proceed 2. Chronic alcohol dependence ? Placed on phenobarb taper. Patient was also started on Seroquel at bedtime as well as Ativan as needed -05/10: Patient finished phenobarb taper and while out of window for alcohol withdrawal so will DC CIWA. Still on seroquel BID -05/11: Doing well on Seroquel and Ativan as needed, CIWA discontinued, added BuSpar to help with anxiety and agitation -05/12: Continue present management 3. Hypokalemia?resolved ? Corrected per protocol ? 05/09/2023 potassium 3.4 additional replacement given -05/10: Within normal limits today -05/14: Recheck in a.m. -05/15: A.m. labs pending, follow-up -05/16: Stable 4. Hyponatremia?resolved ? Secondary to beer potomania monitoring with daily BMPs -05/10: Sodium improved to 137 on 05/09 -05/10: 135 today, overall stable -05/14: Recheck in a.m. -05/15: A.m. labs pending, will follow up -05/16: Stable 5. Elevated transaminases ? Secondary to chronic alcohol use counseled on cessation 7. Anemia - Secondary to chronic disorder monitoring H&H and transfuse if patient becomes symptomatic or hemoglobin falls below 7 8. DVT prophylaxis ? Enoxaparin Charges/Coding Visit Charges Inpatient E&M: 07369 Subs Hosp L1
[2023-05-16] MEDS: QUEtiapine 25 MG Tablet PO ×2 (09:40→20:03)
[2023-05-16] MEDS: Folic Acid 1 MG Tablet PO (09:40)
[2023-05-16] MEDS: Ensure Plus High Protein 120 ML LIQUID PO ×4 (09:40→20:02)
[2023-05-16] MEDS: Thiamine Hydrochloride 100 MG Tablet PO (09:41)
[2023-05-16] MEDS: Potassium Chloride Oral Tablet 20 MEQ PO ×2 (09:41→17:31)
[2023-05-16] MEDS: Enoxaparin 40 MG/0.4 ML Syringe SC (09:41)
[2023-05-16 09:47] VITALS: BP 112/62; PULSE 90; RESP 18; TEMP 37.1; O2SAT 100
[2023-05-16] MEDS: Gabapentin 300 MG Capsule PO (14:46)
[2023-05-16 15:38] VITALS: BP 114/68; PULSE 102; RESP 18; TEMP 37.1; O2SAT 98
[2023-05-16] MEDS: hydrOXYzine PAM 25 MG Capsule 50 MG PO ×2 (15:53→20:02)
[2023-05-16 19:35] VITALS: BP 116/52; PULSE 107; RESP 20; TEMP 37.1; O2SAT 97
[2023-05-16] MEDS: MELATONIN 3 MG TABLET PO (20:02)
[2023-05-16] MEDS: traZODone 100 MG Tablet PO (20:03)
[2023-05-17 01:01] VITALS: BP 125/73; PULSE 87; RESP 20; TEMP 36.8; O2SAT 99
[2023-05-17] MEDS: Menthol/Lanolin/Calamine/Znox 113 GM Tube 1 APPLIC TOPICAL ×3 (01:10→22:57)
[2023-05-17] MEDS: Gabapentin 300 MG Capsule PO ×2 (01:14→23:09)
[2023-05-17 05:08] VITALS: BP 119/90; PULSE 86; RESP 18; TEMP 36.2; O2SAT 98
[2023-05-17] MEDS: Na Biphos/Potassium Phosphate PACKET 1 PACKET PO ×3 (05:12→22:47)
[2023-05-17] MEDS: busPIRone 5 MG Tablet PO ×3 (05:12→22:58)
--- NOTE | 2023-05-17 07:45 | PCM.PN.HOSP ---
Reason for Visit Reason for Visit: Diagnoses Alcohol dependence, uncomplicated (05/01/23) Adult failure to thrive (05/01/23) Other specified health status (05/01/23) Objective Data Objective Data Vital Signs: Vital Signs Temp Pulse Resp BP Pulse Ox O2 Del Method O2 Flow Rate 97.2 F L 86 18 119/90 H 98 Room Air 2 05/17/23 05:08 05/17/23 05:08 05/17/23 05:08 05/17/23 05:08 05/17/23 05:08 05/17/23 05:08 05/02/23 08:00 Oxygen Flow Rate (L/min) 2 Oxygen Delivery Method Room Air Weight: 92.76 kg Body Mass Index (BMI) 28.5 Intake & Output: Intake and Output for Last 24 Hours 05/15/23 05/16/23 05/17/23 23:59 23:59 23:59 Intake Total 800 / 800 Balance 800 / 800 Lab / Micro Data 05/15/23 07:36 05/15/23 07:36 Micro: Microbiology 05/01/23 08:11 Urine, Clean Catch Urine Culture - Final GPC Poss Enterococcus sp 05/01/23 07:55 Nasal Secretion SARS-CoV-2 Antigen (Rapid) - Final Rhythm Strip Rhythm Strip: Sinus Tach Rate: 115 Ectopy: None Physical Exam Narrative GENERAL: cooperative HEENT: Atraumatic; normocephalic EYES; Anicteric, Normal Conjunctiva NECK; supple, normal thyroid, RESPIRATORY: Diminished to auscultation CARDIOVASCULAR: Regular S1 S2, GI: soft, normoactive bowel sounds, : No Renal angle tenderness; EXTREMITIES: No edema, no clubbing, MUSCULOSKELETAL: no muscle wasting NEURO: Awake; no lateralizing signs. SKIN: No Rash PSYCH; Flat affect Assessment & Plan Assessment/Plan (1) Chronic alcohol dependence, continuous: (2) Unable to care for self: (3) Failure to thrive: QUALIFIERS: Failure to thrive age range: in adult Qualified Code(s): R62.7 - Adult failure to thrive PLAN: Plan Patient is a 63-year-old gentleman with history of chronic alcohol dependence admitted with significant self-neglect. 1. Physical debility ? With significant self-neglect. Patient has been admitted to regular nursing floor requested for PT OT eval. Suggestion was made to patient regarding being transferred to detention facility which he refused. Paperwork for guardianship initiated since the assessment was made that patient could not take care of himself at home and is a danger to himself. Consult placed to case management/executive secretary social welfare ? 05/07/2023; Case discussed with case management. Guardianship still pending -05/14: Patient has been appointed a guardian but will last until 05/17 at which time there will be a court hearing determining whether to extend it for another 30 days, we will begin discharge planning -05/15: Placement underway -05/16: Patient has a guardian, awaiting to hear if patient needs PAS/RR or is exempt to that this can proceed 2. Chronic alcohol dependence ? Placed on phenobarb taper. Patient was also started on Seroquel at bedtime as well as Ativan as needed 3. Hypokalemia ? Corrected per protocol 4. Hyponatremia ? Secondary to beer potomania monitoring with daily BMPs ? 05/09/2023 potassium 3.4 additional replacement given 5. Elevated transaminases ? Secondary to chronic alcohol use counseled on cessation 7. Anemia - Secondary to chronic disorder monitoring H&H and transfuse if patient becomes symptomatic or hemoglobin falls below 7 8. DVT prophylaxis ? Enoxaparin Time spent in the patient's overall evaluation,decision-making process, review of diagnostic data, adjustment of management, discussion with other providers, nursing nursing and ancillary staff involved in patient's care documentation, 35 minutes Charges/Coding Visit Charges Inpatient E&M: 30304 Subs Hosp L2
[2023-05-17] MEDS: LORazepam 1 MG Tablet PO ×2 (08:45→16:14)
[2023-05-17] MEDS: Folic Acid 1 MG Tablet PO (08:45)
--- NOTE | 2023-05-17 08:45 | CASEMGMT ---
Discharge Planning Updates sent to [facility] via [employer]. Asked for precert to be started. Dunia Cheng, Discharge Planning Asst.
[2023-05-17] MEDS: Potassium Chloride Oral Tablet 20 MEQ PO ×2 (08:46→16:23)
[2023-05-17] MEDS: Thiamine Hydrochloride 100 MG Tablet PO (08:46)
[2023-05-17] MEDS: Enoxaparin 40 MG/0.4 ML Syringe SC (08:47)
[2023-05-17] MEDS: QUEtiapine 25 MG Tablet PO ×2 (08:47→22:46)
[2023-05-17] MEDS: Ensure Plus High Protein 120 ML LIQUID PO (08:47)
--- NOTE | 2023-05-17 09:42 | TREXTCAR_ITS ---
Diet Diet Order/Speech Therapy: 05/02/23 09:52 Diet: Regular - No Added Salt Is pt able to select menu?: Yes Wound(s) lt knee distal wound: Wound Type: Abrasion lt knee medial: Wound Type: Abrasion lt knee lateral: Wound Type: Abrasion toes bilaterally- 2,3,4 toe left foot and great toe right: Wound Type: Abrasion R foot great toe: Wound Type: Abrasion Therapies Physical Therapy: Eval and Treat Occupational Therapy: Eval and Treat Problem/Diagnosis (1) Chronic alcohol dependence, continuous: Status: Acute Code(s): F10.20 - Alcohol dependence, uncomplicated (2) Unable to care for self: Status: Acute Code(s): Z78.9 - Other specified health status (3) Failure to thrive: Status: Acute Plan Patient is a 63-year-old gentleman with history of chronic alcohol dependence admitted with significant self-neglect. 1. Physical debility ? With significant self-neglect. Patient has been admitted to regular nursing floor requested for PT OT eval. Suggestion was made to patient regarding being transferred to long-term facility which he refused. Paperwork for guardianship initiated since the assessment was made that patient could not take care of himself at home and is a danger to himself. Consult placed to case management/social psychologist ? 05/07/2023; Case discussed with case management. Guardianship still pending -05/14: Patient has been appointed a guardian but will last until 05/17 at which time there will be a court hearing determining whether to extend it for another 30 days, we will begin discharge planning -05/15: Placement underway -05/16: Patient has a guardian, awaiting to hear if patient needs PAS/RR or is exempt to that this can proceed 2. Chronic alcohol dependence ? Placed on phenobarb taper. Patient was also started on Seroquel at bedtime as well as Ativan as needed 3. Hypokalemia ? Corrected per protocol 4. Hyponatremia ? Secondary to beer potomania monitoring with daily BMPs ? 05/09/2023 potassium 3.4 additional replacement given 5. Elevated transaminases ? Secondary to chronic alcohol use counseled on cessation 7. Anemia - Secondary to chronic disorder monitoring H&H and transfuse if patient becomes symptomatic or hemoglobin falls below 7 8. DVT prophylaxis ? Enoxaparin Time spent in the patient's overall evaluation,decision-making process, review of diagnostic data, adjustment of management, discussion with other providers, nursing nursing and ancillary staff involved in patient's care documentation, 35 minutes Allergies/Procedures Done in Hospital Allergies No Known Allergies Allergy (Verified 05/01/23 09:02) Type of Care/Length of Stay Estimated LOS: More Than 30 Days Type of Care Needed: Assisted/Assisted Living Rehab Potential: Fair Prognosis: Fair Additional Orders/Day of Discharge Day of Discharge: 05/17/23 Dietary and Speech Recommendations Dietitian Recommendations/Changes: continue regular/no added salt diet given risk for malnutrition; continue ensure plus high protein 120mL 4x/day w/ medpass Discharge Plan Admission Admit Date/Time: 05/01/23 11:00 Attending Provider: Helder Alfaro Primary Care Provider: Kanika Cortez Consulting Providers: Maciej Olivarez; Yash Villegas; Helder Alfaro; Aleisha Sam Discharge Orders/Prescriptions Prescriptions: New acetaminophen 325 mg Tablet 650 mg PO Q6H PRN PRN (Reason: Pain 1-10 Or Fever>100.7) Qty: 0 0RF buspirone 5 mg Tablet 5 mg PO TID Qty: 12 0RF calcium carbonate 200 mg calcium (500 mg) Tablet,Chewable 500 mg PO Q4H PRN PRN (Reason: indigestion) Qty: 0 0RF dicyclomine 10 mg Capsule 20 mg PO Q6H PRN PRN (Reason: abdominal discomfort) Qty: 0 0RF Ensure Plus High Protein 0.08 gram-1.5 kcal/mL Liquid 120 ml PO 4X/DAY Qty: 0 0RF loperamide 2 mg Capsule 2 mg PO Q4H PRN PRN (Reason: LOOSE STOOLS) Qty: 0 0RF melatonin 3 mg Tablet 3 mg PO QHS PRN PRN (Reason: Insomnia) Qty: 0 0RF gabapentin 300 mg Capsule 300 mg PO Q8H PRN PRN (Reason: moderate to severe anxiety) Qty: 12 0RF folic acid 1 mg Tablet 1 mg PO DAILY@0800 Qty: 0 0RF alum-mag hydroxide-simeth [Mag-Al Plus Extra Strength] 400-400-40 mg/5 mL Suspension 15 ml PO Q6H PRN PRN (Reason: Indigestion) Qty: 0 0RF hydroxyzine pamoate 25 mg Capsule 50 mg PO Q4H PRN PRN (Reason: mild anxiety) Qty: 0 0RF potassium, sodium phosphates 280-160-250 mg Powder In Packet 1 packet PO TID Qty: 0 0RF quetiapine 25 mg Tablet 25 mg PO BID Qty: 0 0RF ondansetron HCl 8 mg Tablet 8 mg PO Q8H PRN PRN (Reason: NAUSEA) Qty: 0 0RF thiamine HCl (vitamin B1) [Vitamin B-1] 100 mg Tablet 100 mg PO DAILYCM Qty: 0 0RF potassium chloride [Klor-Con M20] 20 mEq Tablet,Er Particles/Crystals 20 meq PO BIDCM Qty: 0 0RF trazodone 100 mg Tablet 100 mg PO QHS PRN PRN (Reason: Insomnia) Qty: 0 0RF Continued aspirin [Adult Low Dose Aspirin] 81 mg tablet,delayed release (DR/EC) 81 mg PO DAILY Referrals / Follow Up: Kanika Cortez MD [Primary Care Provider] - Disposition Disposition (needs filled in before D/C Order can be placed): Assisted Facility (3) Failure to thrive Qualifiers: Failure to thrive age range: in adult Qualified Code(s): R62.7 - Adult failure to thrive
[2023-05-17 10:00] VITALS: PULSE 98
[2023-05-17 11:00] VITALS: BP 121/78; PULSE 98; RESP 18; TEMP 36.7; O2SAT 100
[2023-05-17] MEDS: hydrOXYzine PAM 25 MG Capsule 50 MG PO ×3 (12:43→22:46)
[2023-05-17] MEDS: Acetaminophen 325 MG Tablet 650 MG PO (12:44)
--- NOTE | 2023-05-17 13:04 | NURSING ---
pt visiting in mothers room
[2023-05-17 19:49] VITALS: BP 129/72; PULSE 98; RESP 18; TEMP 37; O2SAT 99
[2023-05-17] MEDS: traZODone 100 MG Tablet PO (22:46)
[2023-05-17] MEDS: MELATONIN 3 MG TABLET PO (22:46)
[2023-05-18 06:45] VITALS: BP 130/65; PULSE 90; RESP 18; TEMP 36.8; O2SAT 93
[2023-05-18] MEDS: busPIRone 5 MG Tablet PO ×2 (06:45→13:42)
--- NOTE | 2023-05-18 07:32 | NURSING ---
Ronna Salcido not on unit. Message sent to Pharmacy asking to send to [facility]. Day shift nurse will give medication.
--- NOTE | 2023-05-18 07:39 | PCM.PN.HOSP ---
Reason for Visit Reason for Visit: Diagnoses Alcohol dependence, uncomplicated (05/01/23) Adult failure to thrive (05/01/23) Other specified health status (05/01/23) Subjective Subjective Since seen having breakfast awaiting placement to a long term facility Objective Data Objective Data Vital Signs: Vital Signs Temp Pulse Resp BP Pulse Ox O2 Del Method O2 Flow Rate 98.2 F 90 18 130/65 H 93 Room Air 2 05/18/23 06:45 05/18/23 06:45 05/18/23 06:45 05/18/23 06:45 05/18/23 06:45 05/18/23 06:45 05/02/23 08:00 Oxygen Flow Rate (L/min) 2 Oxygen Delivery Method Room Air Weight: 92.76 kg Body Mass Index (BMI) 28.5 Lab / Micro Data 05/15/23 07:36 05/15/23 07:36 Micro: Microbiology 05/01/23 08:11 Urine, Clean Catch Urine Culture - Final GPC Poss Enterococcus sp 05/01/23 07:55 Nasal Secretion SARS-CoV-2 Antigen (Rapid) - Final Rhythm Strip Rhythm Strip: Sinus Tach Rate: 115 Ectopy: None Physical Exam Narrative GENERAL: cooperative HEENT: Atraumatic; normocephalic EYES; Anicteric, Normal Conjunctiva NECK; supple, normal thyroid, RESPIRATORY: Diminished to auscultation CARDIOVASCULAR: Regular S1 S2, GI: soft, normoactive bowel sounds, : No Renal angle tenderness; EXTREMITIES: No edema, no clubbing, MUSCULOSKELETAL: no muscle wasting NEURO: Awake; no lateralizing signs. SKIN: No Rash PSYCH; Flat affect Assessment & Plan Assessment/Plan (1) Chronic alcohol dependence, continuous: (2) Unable to care for self: (3) Failure to thrive: QUALIFIERS: Failure to thrive age range: in adult Qualified Code(s): R62.7 - Adult failure to thrive PLAN: Plan Patient is a 63-year-old gentleman with history of chronic alcohol dependence admitted with significant self-neglect. 1. Physical debility ? With significant self-neglect. Patient has been admitted to regular nursing floor requested for PT OT eval. Suggestion was made to patient regarding being transferred to long term facility which he refused. Paperwork for guardianship initiated since the assessment was made that patient could not take care of himself at home and is a danger to himself. Consult placed to case management/social service director ? 05/07/2023; Case discussed with case management. Guardianship still pending -05/14: Patient has been appointed a guardian but will last until 05/17 at which time there will be a court hearing determining whether to extend it for another 30 days, we will begin discharge planning -05/15: Placement underway -05/16: Patient has a guardian, awaiting to hear if patient needs PAS/RR or is exempt to that this can proceed 2. Chronic alcohol dependence ? Placed on phenobarb taper. Patient was also started on Seroquel at bedtime as well as Ativan as needed 3. Hypokalemia ? Corrected per protocol 4. Hyponatremia ? Secondary to beer potomania monitoring with daily BMPs ? 05/09/2023 potassium 3.4 additional replacement given 5. Elevated transaminases ? Secondary to chronic alcohol use counseled on cessation 7. Anemia - Secondary to chronic disorder monitoring H&H and transfuse if patient becomes symptomatic or hemoglobin falls below 7 8. DVT prophylaxis ? Enoxaparin Time spent in the patient's overall evaluation,decision-making process, review of diagnostic data, adjustment of management, discussion with other providers, nursing nursing and ancillary staff involved in patient's care documentation, 25 minutes Charges/Coding Visit Charges Inpatient E&M: 25781 [facility] L1
[2023-05-18] MEDS: Enoxaparin 40 MG/0.4 ML Syringe SC (07:46)
[2023-05-18] MEDS: Folic Acid 1 MG Tablet PO (07:46)
[2023-05-18] MEDS: Potassium Chloride Oral Tablet 20 MEQ PO (07:46)
[2023-05-18] MEDS: Thiamine Hydrochloride 100 MG Tablet PO (07:46)
[2023-05-18] MEDS: QUEtiapine 25 MG Tablet PO (07:47)
[2023-05-18] MEDS: Menthol/Lanolin/Calamine/Znox 113 GM Tube 1 APPLIC TOPICAL (07:47)
[2023-05-18] MEDS: hydrOXYzine PAM 25 MG Capsule 50 MG PO ×2 (07:51→13:50)
[2023-05-18] MEDS: LORazepam 1 MG Tablet PO ×2 (07:52→13:41)
[2023-05-18 09:44] VITALS: PULSE 90
--- NOTE | 2023-05-18 11:14 | CASEMGMT ---
Discharge Planning [facility] has received auth. SW updated. Dunia Chneg, Discharge Planning Asst.
--- NOTE | 2023-05-18 11:38 | DS.PCM_ITS ---
Providers Date of Admission: 05/01/23 Date of Discharge: 05/18/23 Primary Care Physician: Dr. Kanika Cortez MD Consultations 05/13/23 20:46 Consult: Onc/Wound/elementary tutor Routine Comment: Reason for Consult:: R foot, toes Reason For Visit: FAILURE TO THRIVE, ALCOHOLIC KETOACIDOSIS Diagnosis Discharge Diagnosis (1) Chronic alcohol dependence, continuous: Status: Acute Code(s): F10.20 - Alcohol dependence, uncomplicated (2) Unable to care for self: Status: Acute Code(s): Z78.9 - Other specified health status (3) Failure to thrive: Status: Acute Qualifiers: Failure to thrive age range: in adult Qualified Code(s): R62.7 - Adult failure to thrive Plan Patient is a 63-year-old gentleman with history of chronic alcohol dependence admitted with significant self-neglect. 1. Physical debility ? With significant self-neglect. Patient has been admitted to regular nursing floor requested for PT OT eval. Suggestion was made to patient regarding being transferred to custodial facility which he refused. Paperwork for guardianship initiated since the assessment was made that patient could not take care of himself at home and is a danger to himself. Consult placed to case management/drug abuse social worker ? 05/07/2023; Case discussed with case management. Guardianship still pending -05/14: Patient has been appointed a guardian but will last until 05/17 at which time there will be a court hearing determining whether to extend it for another 30 days, we will begin discharge planning -05/15: Placement underway -05/16: Patient has a guardian, awaiting to hear if patient needs PAS/RR or is exempt to that this can proceed 2. Chronic alcohol dependence ? Placed on phenobarb taper. Patient was also started on Seroquel at bedtime as well as Ativan as needed 3. Hypokalemia ? Corrected per protocol 4. Hyponatremia ? Secondary to beer potomania monitoring with daily BMPs ? 05/09/2023 potassium 3.4 additional replacement given 5. Elevated transaminases ? Secondary to chronic alcohol use counseled on cessation 7. Anemia - Secondary to chronic disorder monitoring H&H and transfuse if patient becomes symptomatic or hemoglobin falls below 7 8. DVT prophylaxis ? Enoxaparin Time spent in the patient's overall evaluation,decision-making process, review of diagnostic data, adjustment of management, discussion with other providers, nursing nursing and ancillary staff involved in patient's care documentation, 35 minutes Medications at Discharge Home Medications aspirin 81 mg tablet,delayed release (Adult Low Dose Aspirin) 81 mg PO DAILY Check with primary doctor 07/04/19 acetaminophen 325 mg tablet 650 mg (2 x 325 mg) PO Q6H PRN PRN Pain 1-10 Or Fever>100.7 #0 tabs 05/17/23 aluminum-mag hydroxide-simethicone 400 mg-400 mg-40 mg/5 mL oral susp (Mag-Al Plus Extra Strength) 15 ml PO Q6H PRN PRN Indigestion #0 mL 05/17/23 buspirone 5 mg tablet 5 mg PO TID #12 tabs 05/17/23 calcium carbonate 200 mg calcium (500 mg) chewable tablet 500 mg (2.5 x 200 mg calcium (500 mg)) PO Q4H PRN PRN indigestion #0 tabs 05/17/23 dicyclomine 10 mg capsule 20 mg (2 x 10 mg) PO Q6H PRN PRN abdominal discomfort #0 caps 05/17/23 folic acid 1 mg tablet 1 mg PO DAILY@0800 #0 tabs 05/17/23 food supplemt, lactose-reduced 0.08 gram-1.5 kcal/mL oral liquid (Ensure Plus High Protein) 120 ml PO 4X/DAY #0 mL 05/17/23 gabapentin 300 mg capsule 300 mg PO Q8H PRN PRN moderate to severe anxiety #12 caps 05/17/23 hydroxyzine pamoate 25 mg capsule 50 mg (2 x 25 mg) PO Q4H PRN PRN mild anxiety #0 caps 05/17/23 loperamide 2 mg capsule 2 mg PO Q4H PRN PRN LOOSE STOOLS #0 caps 05/17/23 melatonin 3 mg tablet 3 mg PO QHS PRN PRN Insomnia #0 tabs 05/17/23 ondansetron HCl 8 mg tablet 8 mg PO Q8H PRN PRN NAUSEA #0 tabs 05/17/23 potassium chloride 20 mEq tablet,extended release(part/cryst) (Klor-Con M) 20 meq PO BIDCM #0 tabs 05/17/23 potassium, sodium phosphates 280 mg-160 mg-250 mg oral powder packet 1 packet PO TID #0 ea 05/17/23 quetiapine 25 mg tablet 25 mg PO BID #0 tabs 05/17/23 thiamine HCl (vitamin B1) 100 mg tablet (Vitamin B-1) 100 mg PO DAILYCM #0 tabs 05/17/23 trazodone 100 mg tablet 100 mg PO QHS PRN PRN Insomnia #0 tabs 05/17/23 Hospital Course Summary of Care Provided Minutes Spent on Discharge: 35 Weight / BMI Weight Weight: 92.76 kg Body Mass Index (BMI) 28.5 ABG / Lab / Microbiology Data 05/15/23 07:36 05/15/23 07:36 Microbiology: Microbiology 05/01/23 08:11 Urine, Clean Catch Urine Culture - Final GPC Poss Enterococcus sp 05/01/23 07:55 Nasal Secretion SARS-CoV-2 Antigen (Rapid) - Final D/C Instructions Discharge Diet: No restrictions Discharge Activity: Return to Normal Activity Call your doctor if you observe: Fever of 101 or Higher, Shortness of breath, Fainting spells and Chest pain Meaningful Use Info Meaningful Use Diagnoses (Choose all that apply): None applicable Discharge Plan Admission Admit Date/Time: 05/01/23 11:00 Attending Provider: Helder Alfaro Primary Care Provider: Kanika Cortez Consulting Providers: Maciej Olivarez; Yash Villegas; Helder Alfaro; Aleisha Sam Discharge Orders/Prescriptions Prescriptions: New acetaminophen 325 mg Tablet 650 mg PO Q6H PRN PRN (Reason: Pain 1-10 Or Fever>100.7) Qty: 0 0RF buspirone 5 mg Tablet 5 mg PO TID Qty: 12 0RF calcium carbonate 200 mg calcium (500 mg) Tablet,Chewable 500 mg PO Q4H PRN PRN (Reason: indigestion) Qty: 0 0RF dicyclomine 10 mg Capsule 20 mg PO Q6H PRN PRN (Reason: abdominal discomfort) Qty: 0 0RF Ensure Plus High Protein 0.08 gram-1.5 kcal/mL Liquid 120 ml PO 4X/DAY Qty: 0 0RF loperamide 2 mg Capsule 2 mg PO Q4H PRN PRN (Reason: LOOSE STOOLS) Qty: 0 0RF melatonin 3 mg Tablet 3 mg PO QHS PRN PRN (Reason: Insomnia) Qty: 0 0RF gabapentin 300 mg Capsule 300 mg PO Q8H PRN PRN (Reason: moderate to severe anxiety) Qty: 12 0RF folic acid 1 mg Tablet 1 mg PO DAILY@0800 Qty: 0 0RF alum-mag hydroxide-simeth [Mag-Al Plus Extra Strength] 400-400-40 mg/5 mL Suspension 15 ml PO Q6H PRN PRN (Reason: Indigestion) Qty: 0 0RF hydroxyzine pamoate 25 mg Capsule 50 mg PO Q4H PRN PRN (Reason: mild anxiety) Qty: 0 0RF potassium, sodium phosphates 280-160-250 mg Powder In Packet 1 packet PO TID Qty: 0 0RF quetiapine 25 mg Tablet 25 mg PO BID Qty: 0 0RF ondansetron HCl 8 mg Tablet 8 mg PO Q8H PRN PRN (Reason: NAUSEA) Qty: 0 0RF thiamine HCl (vitamin B1) [Vitamin B-1] 100 mg Tablet 100 mg PO DAILYCM Qty: 0 0RF potassium chloride [Klor-Con M20] 20 mEq Tablet,Er Particles/Crystals 20 meq PO BIDCM Qty: 0 0RF trazodone 100 mg Tablet 100 mg PO QHS PRN PRN (Reason: Insomnia) Qty: 0 0RF Continued aspirin [Adult Low Dose Aspirin] 81 mg tablet,delayed release (DR/EC) 81 mg PO DAILY Referrals / Follow Up: Kanika Cortez MD [Primary Care Provider] - Disposition Disposition (needs filled in before D/C Order can be placed): Intermediate Facility Charges/Coding Visit Charges Inpatient E&M: 08920 Disch Hosp >30min
[2023-05-18] MEDS: Gabapentin 300 MG Capsule PO (12:58)
[2023-05-18 13:00] VITALS: BP 110/62; PULSE 90; RESP 18; TEMP 36.7; O2SAT 98
--- NOTE | 2023-05-18 13:32 | CASEMGMT ---
Discharge Planning Discharge orders, signed med list, and transport time sent to [facility] via [facility]. [facility] will transport patient by wheelchair at 3p. Nursing and SW updated. Dunia Cheng, Discharge Planning Asst.
[2023-05-18] MEDS: Na Biphos/Potassium Phosphate PACKET 1 PACKET PO (13:42)
[2023-05-18] MEDS: Acetaminophen 325 MG Tablet 650 MG PO (16:57)
--- NOTE | 2023-05-18 18:00 | CASEMGMT ---
Social Work - DISCHARGE NOTE Patient being discharged to [facility] today. Convalescent exemption form was completed on 05.17.23 via [employer]. Discharge video production assistant faxed orders to SNF and arranged transportation via [facility] service. This marine underwriter communicated with patient's legal guardian Ino Thakur of plan to discharge today and plan to update the patient's sister to discharge date. The sister had called in and asked for update on day of discharge. Updated patient's daughter Leti to the plan for discharge today and gave number for legal guardian should Leti want to communicate with the guardian. Leti indicated would call the guardian this week. Spoke with clerk Hyun at Prob[address], asking for letter of guardianships be faxed to the [facility]. Order from 05.17.23 still not loaded into dockets, but Hyun reports can see recommendation is to continuance of guardianship for 30 days. Upon [facility] arrival to the unit to transport, patient verbally argumentative with transport staff and [facility] staff regarding getting onto the cot and going to [facility]. Patient visiting in patient's room at the time, and who also now has a legal guardian. 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 Patient bargaining with staff and transport company regarding taking patient's mother first, and then will take the next transport to [facility]. Patient was alert and oriented to person, day of week, and year, but thought it was October and the president was Victorino when asked. EMS staff concerned about transporting patient when patient did not want t go. Educated that patient has been deemed incompetent to make own decisions for self in a court of law, and at this time patient does not get to decide to go home to live. Note, at one point this marine underwriter heard patient whispering to his mother that they are trying to split us up. This marine underwriter gently confronted and reoriented patient that statement made to his mother is not true. Educated that much work was done to keep patient and his mother together. Gears were switched and patient's mother transported first, as patient promised would go, only after his mother went. Patient admits to like to be in control. Upon arrival of the EMS back to [facility] to get patient (same crew as first time), patient once again tried to bargain and argue way out of plan for NF, such as stating that needed to drive his car home and then admitting that not even sure where is car is at. Patient asked to stay at [facility] longer, until tomorrow. This marine underwriter firm with patient that the discharge order is written, and patient has to discharge today, that patient is going to the same facility as the patient's mother and will be just a couple of doors down from each other. After much discussion, and stall tactics by the patient, the patient did get onto the ambulance cot for transport. Patient kept asking staff if his alcohol was packed up in his bags. Reminded patient that patient does not have alcohol at the hospital. This marine underwriter did leave a message for patient's guardian of patient's oppositional responses at time of discharge. Plan: Patient discharged to [facility], intermediate level of care under [employer] insurance; Convalescent exemption form was completed on 05.17.23. -NARDA Perez
== END 2023-05-18 17:34 | disposition skilled nursing facility (03) | DRG 421 ==
LOC: ED 10:13 → MS3 13:42
PROVIDERS: Internal Medicine; Admitting Provider Hospitalist; Emergency Provider Emergency Medicine; PCP Internal Medicine; Visit Provider Internal Medicine
DX: R62.7 Adult failure to thrive (principal); G92.8 Other toxic encephalopathy; E87.29 Other acidosis; F22 Delusional disorders; S91.309A Unspecified open wound, unspecified foot, initial encounter; B37.2 Candidiasis of skin and nail; K70.10 Alcoholic hepatitis without ascites; K74.60 Unspecified cirrhosis of liver; T51.0X1A Toxic effect of ethanol, accidental (unintentional), initial encounter; F10.20 Alcohol dependence, uncomplicated; D53.9 Nutritional anemia, unspecified; I10 Essential (primary) hypertension; E87.1 Hypo-osmolality and hyponatremia; E80.7 Disorder of bilirubin metabolism, unspecified; K40.20 Bilateral inguinal hernia, without obstruction or gangrene, not specified as recurrent; I25.10 Atherosclerotic heart disease of native coronary artery without angina pectoris; E87.6 Hypokalemia; F17.210 Nicotine dependence, cigarettes, uncomplicated; R25.1 Tremor, unspecified; Y90.0 Blood alcohol level of less than 20 mg/100 ml; N39.0 Urinary tract infection, site not specified; R53.81 Other malaise; Z68.28 Body mass index [BMI] 28.0-28.9, adult; Z11.52 Encounter for screening for COVID-19; Z79.82 Long term (current) use of aspirin; Z79.899 Other long term (current) drug therapy
CPT/HCPCS: 36415; 71045; 76705; 80048; 80053; 80074; 80307; 81001; 82009; 82077; 82248; 82607; 82746; 83735; 84100; 85025; 85027; 85610; 87086; 87088; 87811; 93005; 97112; 97116; 97162; 97166; 97530; 97535; 97802; 97803; 99285; 99406; J7030; J7040; A4216; J7799

== ENCOUNTER → 2023-05-19 | Outpatient (REF) | payer MEDICAID, SELFPAY ==
[2023-05-19 09:02] LABS: Hematocrit 32.9 % (40-54); Hemoglobin 10.7 g/dL (13.0-16.5); Mean Corp Hgb Conc 32.5 g/dL (32-36); Mean Corpuscular Hgb 34.5 pg (27.0-32.0); Mean Corpuscular Volume 106.1 fL (80-94); Mean Platelet Vol. 9.3 fl (6.2-12.0); Platelet Count 280 K/mm3 (150-450); RBC Distribution Width CV 13.3 % (11.6-14.6); RBC Distribution Width SD 51.9 fl (35.1-43.9); White Blood Count 7.8 K/mm3 (4.4-11.0)
[2023-05-19 09:13] LABS: Vitamin D,25 Hydroxy 12.7 ng/mL
[2023-05-19 09:34] LABS: Anion Gap 6 (5-15); BUN 7 mg/dL (7-18); BUN/Creat Ratio 10.8 RATIO (10-20); Calcium,Total 8.3 mg/dL (8.5-10.1); Chloride 111 mmol/L (98-107); Creatinine, Serum 0.65 mg/dL (0.70-1.30); EST Glomerular Filtration Rate 132 mL/min (>60); Est Glom Filt Rate - Afr Amer 160 mL/min (>60); Glucose 92 mg/dL (74-106); Potassium 3.7 mmol/L (3.5-5.1); Sodium Level 140 mmol/L (136-145)
== END | disposition home or self-care (01) ==
LOC: OLS.SW 04:00
PROVIDERS: PCP Internal Medicine; Referring Provider Internal Medicine; Visit Provider Internal Medicine
DX: Z02.2 Encounter for examination for admission to residential institution (principal); I82.409 Acute embolism and thrombosis of unspecified deep veins of unspecified lower extremity; I10 Essential (primary) hypertension; E78.5 Hyperlipidemia, unspecified
CPT/HCPCS: 36415; 80048; 82306; 83735; 85027

== ENCOUNTER → 2023-06-01 | Outpatient (REF) | payer MEDICAID, SELFPAY ==
--- OUTSIDE RECORDS SUMMARY | 2023-06-01 04:56 | XMS RPT_ITS | CCD ---
Author Name Unknown Address [address] [place] [address] Organization [facility] Results Test Name Value Interpretation Reference Range Facil ity Summary Purpose Family History No Family History Records Found Advance Directives No Advanced Directives Records Found Additional Source Comments (unrecognized sect ion and content) No Status Records Found INFORMATION SOURCE (unrecogn ized section and content) FOR RECORDS PERTAINING TO PATIENTS WHO ARE OR HAVE BEEN ENROLLED IN A CHEMICAL DEPENDENCY/SUBSTANCEABUSE PROGRAM, SOME INFORMATION MAY BE OMITTED. This clinical summary was aggregated from multiple sources. Caution should be exercised in using it in the provision of clinical care. This summary normalizes information from multiple sources, and as a consequence, information in this document may materially change the coding, format and clinical context of patient data. In addition, data may be omitted in some cases. CLINICAL DECISIONS SHOULD BE BASED ON THE PRIMARY CLINICAL RECORDS. [employer] provides no warranty or guarantee of the accuracy or completeness of information in this document.
[2023-06-01 09:24] LABS: Anion Gap 5 (5-15); BUN 5 mg/dL (7-18); BUN/Creat Ratio 7.5 RATIO (10-20); Calcium,Total 8.7 mg/dL (8.5-10.1); Chloride 112 mmol/L (98-107); Creatinine, Serum 0.67 mg/dL (0.70-1.30); EST Glomerular Filtration Rate 128 mL/min (>60); Est Glom Filt Rate - Afr Amer 155 mL/min (>60); Glucose 88 mg/dL (74-106); Magnesium 2.1 mg/dL (1.6-2.6); Potassium 3.6 mmol/L (3.5-5.1); Sodium Level 142 mmol/L (136-145)
== END | disposition home or self-care (01) ==
LOC: OLS.SW 05:00
PROVIDERS: PCP Internal Medicine; Visit Provider Internal Medicine
DX: D64.9 Anemia, unspecified (principal); E87.1 Hypo-osmolality and hyponatremia; R62.7 Adult failure to thrive
CPT/HCPCS: 36415; 80048; 83735